=== PATIENT | male | born 1940 | race Caucasian/White ===

== ENCOUNTER 2017-07-06 05:36 | Inpatient (IN) | payer OTHER, BC ==
[2017-07-06] MEDS ORDERED: SODIUM CHLORIDE 500 ML IV STA (06:26)
[2017-07-06] MEDS ORDERED: KETOROLAC TROMETHAMINE 30 MG/1 ML VIAL IM ONE (06:26)
[2017-07-06] MEDS ORDERED: methylPREDNISolone NA SUCC 125 MG/2 ML VIAL IVPB ONE (06:26)
--- NOTE | 2017-07-06 06:27 | PDOC ---
History of Present Illness - General Chief Complaint: Pain Stated Complaint: PAIN,RT HIP Time Seen by Provider: 07/06/17 06:06 History Source: Patient Exam Limitations: No Limitations - History of Present Illness Initial Comments: 07/06/17 06:36 76yo Male patient with extensive cardiac history that includes: HTN, HLD, PVD, Cardiac Bypass, IDDM, Chronic Osteomyelitis, Anxiety presents to ED c/o atraumatic right hip pain that radiates down right thigh and wraps around right knee. Patient states he recently had MRI by Dr. Galarza that showed DDD, Arthritis, and Spinal Stenosis. He states pain has been ongoing x 2 weeks and constant. Patient take Tramadol for pain with minimal relief. He denies CP, Abd pain, Diff breathing, cough, congestion, fever, injury, fall or any other complaints at this time. Timing/Duration: constant Severity: moderate Modifying Factors: improves with: medication Associated Symptoms: denies: denies symptoms, chest pain, cough, diaphoresis, fever/chills, headaches, loss of appetite, malaise, nausea/vomiting, rash, seizure, shortness of breath, syncope, weakness, other Aspirin Received prior to arrival: No: no aspirin today, unknown, 81 mg x 1, 81 mg x 2, 81 mg x 3, 81 mg x 4, 325 mg x 1, provided at home, provided by EMS, provided by ED [facility] Contraindications(Core Measure): No: Allergy, Other, Active Blding w/i 24 hrs., Plavix, Receiving Warfarin Beta Onelia Contraindications(Core Measure): No: Not Prescribed, Allergy, Bradycardia (HR <60bpm), Advanced Heart Block, Pacemaker, Other Past History - Travel Traveled outside of the country in the last 30 days: No Close contact w/someone who was outside of country & ill: No - Past Medical History Allergies/Adverse Reactions: Allergies Allergy/AdvReac Type Severity Reaction Status Date / Time No Known Drug Allergies Allergy Verified 07/06/17 06:25 Home Medications: Ambulatory Orders Amiodarone HCl [Cordarone -] 200 mg PO DAILY 08/25/13 Ascorbic Acid [Vitamin C] 1,000 mg PO DAILY 08/25/13 Aspirin Coated [Ecotrin -] 81 mg PO DAILY 08/25/13 Atorvastatin Ca [Lipitor] 80 mg PO HS 08/25/13 Carvedilol [Coreg -] 6.25 mg PO BID 08/25/13 Dicloxacillin Sodium 500 mg PO TID 08/25/13 Digoxin [Lanoxin -] 0.5 mg PO DAILY 08/25/13 Flaxseed Oil 1,000 mg PO DAILY 08/25/13 Folic Acid 0.8 mg PO DAILY 08/25/13 Furosemide [Lasix -] 20 mg PO DAILY 08/25/13 Ibuprofen [Motrin -] 600 mg PO TID 08/25/13 Insulin Glargine,Hum.rec.anlog [Lantus (10mL VIAL) -] 20 units SQ HS 08/25/13 Magnesium 30 mg PO DAILY 08/25/13 Phenytoin Sodium Extended [Phenytek] 300 mg PO BID 08/25/13 Potassium Chloride [K-Tab] 5 meq PO DAILY 08/25/13 Pyridoxine HCl (B-6) [Vitamin B6 -] 50 mg PO DAILY 08/25/13 Valsartan [Diovan] 80 mg PO DAILY 08/25/13 Zinc 50 mg PO DAILY 08/25/13 Insulin Lispro [Humalog] 5 unit SQ TID 08/26/13 Alprazolam [Xanax] 1 mg PO BID 07/06/17 Cyanocobalamin [Vitamin B12 -] 1,000 mcg PO DAILY 07/06/17 Docusate Sodium [Colace -] 100 mg PO DAILY 07/06/17 Isosorbide Mononitrate [Imdur -] 30 mg PO DAILY 07/06/17 Hawley-3 Fatty Acids [Hawley-3] 1,000 mg PO DAILY 07/06/17 Tramadol HCl 50 mg PO QID 07/06/17 Ubidecarenone/Vit E Acetate [Co Q-10 100 mg Softgel] 1 each PO DAILY 07/06/17 Cancer: Yes (brain tumor) Cardiac Disorders: Yes (bypass sx) Diabetes: Yes Thyroid Disease: Yes (HYPO) - Surgical History Appendectomy: Yes Cardiac Surgery: Yes (CABG) Neurologic Surgery: Yes (MENINGIOMA REMOVED) - Psycho/Social/Smoking Cessation Hx Suicidal Ideation: No Smoking History: Former smoker Have you smoked in the past 12 months: No If you are a former smoker, when did you quit?: 40YRS AGO Information on smoking cessation initiated: No Hx Alcohol Use: Yes (OCCAS) Drug/Substance Use Hx: No Substance Use Type: Alcohol Hx Substance Use Treatment: No Review of Systems - Review of Systems Musculoskeletal: Yes: Back Pain, Other (Leg Pain) All Other Systems: Reviewed and Negative *Physical Exam - Vital Signs Last Vital Signs Temp Pulse Resp BP Pulse Ox 97.6 F 67 20 149/109 94 L 07/06/17 05:45 07/06/17 05:45 07/06/17 05:45 07/06/17 05:45 07/06/17 05:45 - Physical Exam General Appearance: Yes: Nourished, Appropriately Dressed, Mild Distress. No: Apparent Distress, Moderate Distress, Severe Distress Respiratory/Chest: positive: Decreased Breath Sounds. negative: Chest Tender, Normal Breath Sounds, Respiratory Distress, Accessory Muscle Use, Labored Respiration, Rapid RR, Crackles, Rales, Stridor, Wheezing Cardiovascular: positive: Regular Rhythm, Regular Rate Gastrointestinal/Abdominal: positive: Normal Bowel Sounds, Soft. negative: Distended, Guarding, Rebound, Tenderness Musculoskeletal: positive: Normal Inspection, Decreased Range of Motion. negative: CVA Tenderness, Vertebral Tenderness Extremity: positive: Normal Capillary Refill, Normal Range of Motion, Pedal Edema, Swelling. negative: Normal Inspection, Tender, Calf Tenderness, Erythema , Inflammation Integumentary: positive: Normal Color, Dry, Warm. negative: Rash, Swelling, Ecchymosis, Bruising Neurologic: positive: ticket counter II-XII NML intact, Fully Oriented, Alert, Normal Mood/ Affect, Normal Response, Motor Strength 5/5
[2017-07-06] MEDS ORDERED: HYDROCORTISONE SOD SUCCINATE 250 MG/2 ML ML ONE ×2 (06:40→06:41)
[2017-07-06] MEDS ORDERED: KETOROLAC TROMETHAMINE 60 MG/2 ML VIAL ONE (06:40)
[2017-07-06 06:59] LABS: BASOPHIL 0.9 % (0-2.0); EOSINOPHIL 1.8 % (0-4.5); MCH 32.6 pg (25.7-33.7); MCHC 33.5 g/dl (32.0-35.9); MEAN CELL VOLUME 97.2 fl (80-96); MEAN PLT VOLUME 8.6 fl (7.5-11.1); NEUTROPHILS 78.6 % (42.8-82.8); PLATELET COUNT 195 K/MM3 (134-434); RDW 14.2 % (11.9-15.9); WHITE BLOOD COUNT 12.5 K/mm3 (4.0-10.0)
[2017-07-06 07:23] LABS: ALBUMIN 3.5 g/dl (3.4-5.0); ALK PHOS 219 U/L (45-117); ANION GAP 6 (8-16); BILIRUBIN,TOTAL 0.5 mg/dL (0.2-1.0); CALCIUM 8.7 mg/dL (8.5-10.1); CO2 31 mmol/L (21-32); GLUCOSE,RANDOM 155 mg/dL (74-106); MAGNESIUM 2.1 mg/dL (1.8-2.4); SGOT/AST 37 U/L (15-37); SGPT/ALT 41 U/L (12-78); TOT PROT 7.1 g/dl (6.4-8.2)
--- NOTE | 2017-07-06 07:40 | PDOC ---
*Physical Exam - Vital Signs Last Vital Signs Temp Pulse Resp BP Pulse Ox 97.6 F 67 20 149/109 94 L 07/06/17 05:45 07/06/17 05:45 07/06/17 05:45 07/06/17 05:45 07/06/17 05:45 - Physical Exam General Appearance: Yes: Appropriately Dressed. No: Apparent Distress HEENT: positive: Normal Voice Neck: positive: Supple Respiratory/Chest: negative: Respiratory Distress Extremity: positive: Normal Inspection Integumentary: positive: Dry, Warm Neurologic: positive: Fully Oriented, Alert, Normal Mood/Affect ED Treatment Course - LABORATORY CBC & Chemistry Diagram: 07/06/17 06:47 07/06/17 06:47 - ADDITIONAL ORDERS Additional order review: Laboratory Results 07/06/17 06:47 Sodium 141 Potassium 4.8 Chloride 104 Carbon Dioxide 31 Anion Gap 6 L BUN 27 H Creatinine 1.0 D Creat Clearance w eGFR > 60 Random Glucose 155 H D Calcium 8.7 Magnesium 2.1 Total Bilirubin 0.5 D AST 37 D ALT 41 Alkaline Phosphatase 219 H D Total Protein 7.1 Albumin 3.5 07/06/17 06:47 RBC 4.18 MCV 97.2 H MCHC 33.5 RDW 14.2 MPV 8.6 Neutrophils % 78.6 Lymphocytes % 9.5 Monocytes % 9.2 Eosinophils % 1.8 Basophils % 0.9 - Medications Given in the ED: ED Medications Discontinued Medications Generic Name Dose Route Start Last Admin Trade Name Freq PRN Reason Stop Dose Admin Sodium Chloride 500 mls @ 500 mls/hr 07/06/17 06:26 07/06/17 06:52 Normal Saline - IV 07/06/17 07:25 500 mls/hr ASDIR STA Administration Ketorolac Tromethamine 30 mg 07/06/17 06:26 07/06/17 06:53 Toradol Injection - IM 07/06/17 06:27 30 mg ONCE ONE Administration Methylprednisolone Sodium Succinate 125 mg 07/06/17 06:26 07/06/17 06:53 Solu-Medrol - IVPB 07/06/17 06:27 125 mg ONCE ONE Administration Medical Decision Making - Medical Decision Making 07/06/17 07:38 Patient signed out to me at 7 AM Patient is a 76-year-old male with extensive cardiac history, diabetes, chronic osteomyelitis, chronic back pain status post MRI 2 weeks ago arranged by Dr. Whitman, which showed DJD and spinal stenosis, here with worsening of low back pain and unable to ambulate 1 week. No lower extremity weakness, saddle anesthesia or bowel or bladder incontinence. Plan is to control pain and reassess. CT lumbar spine, rule out acute pathology pending as per prior team. 07/06/17 10:31 MRI with multiple possible recent compression fractures. Known osteoarthritis also seen. No evidence of spinal cord compromise. Patient informed of findings. States morphine did improve pain, but unable to ambulate even w/ walker. Reports that he was unable to receive appropriate PT therapy in the past 2/2 insurance issues. Will contact PMD and admit at this time 07/06/17 10:34 07/06/17 11:[address] Glenda Todd, who is covering for patient's PMD, Dr Flaherty, states patient can be admitted to observation for pain control and that M.D., will contact pain management 07/06/17 11:50 07/06/17 12:08 *DC/Admit/Observation/Transfer Diagnosis at time of Disposition: Low back pain Qualifiers: Chronicity: acute Back pain laterality: bilateral Sciatica presence: without sciatica Qualified Code(s): M54.5 - Low back pain - Discharge Dispostion Condition at time of disposition: Fair Admit: Yes - Referrals
[2017-07-06] MEDS ORDERED: morphine CARPU-JECT 4 MG/1 ML DISP.SYRIN IVPUSH ONE (07:43)
[2017-07-06] MEDS ORDERED: METOCLOPRAMIDE HCL INJECTION 10 MG/2 ML VIAL IVPB ONE (07:46)
[2017-07-06] MEDS ORDERED: morphine CARPU-JECT 4 MG/1 ML DISP.SYRIN ONE (07:46)
[2017-07-06] MEDS ORDERED: ONDANSETRON 4 MG/2 ML VIAL IVPUSH ONE (07:51)
[2017-07-06] MEDS ORDERED: ONDANSETRON 4 MG/2 ML VIAL IVPB PRN (12:29)
[2017-07-06] MEDS ORDERED: IBUPROFEN 600 MG TABLET (FP) PO PRN (12:29)
--- NOTE | 2017-07-06 12:35 | HP ---
Admitting History and Physical - Primary Care Physician PCP: Mika Flaherty - Admission Chief Complaint: pain in right knee/ back History of Present Illness: 76yo Male patient--pt of Dr. Flaherty-- with extensive history that of HTN, HLD, PVD, cad--Cardiac Bypass, IDDM, Chronic Osteomyelitis left leg-- on suppressive abx , Anxiety presents to ED c/o atraumatic right hip pain that radiates down right thigh and wraps around right knee. Patient states he recently had MRI by Dr. Galarza that showed DDD, Arthritis, and Spinal Stenosis. He states pain has been ongoing x 2 weeks and constant. Patient take Tramadol for pain with minimal relief. He denies CP, Abd pain, Diff breathing, cough, congestion, fever , injury, fall or any other complaints . pt reports pain worse in last 2 weeks also says told that of back better- knee pain will get better. unable to walk due to pain. being kept for obs family at bedside anxious. History Source: Patient Limitations to Obtaining History: No Limitations - Past Medical History [employer]: Yes: Peripheral Neuropathy Cardiovascular: Yes: CAD Psych: Yes: Anxiety Musculoskeletal: Yes: Chronic low back pain - Smoking History Smoking history: Former smoker Have you smoked in the past 12 months: No If you are a former smoker, when did you quit?: 40YRS AGO - Alcohol/Substance Use Hx Alcohol Use: Yes (OCCAS) History of Substance Use: reports: None Home Medications - Allergies Allergies/Adverse Reactions: Allergies Allergy/AdvReac Type Severity Reaction Status Date / Time No Known Drug Allergies Allergy Verified 07/06/17 06:25 - Home Medications Home Medications: Ambulatory Orders Amiodarone HCl [Cordarone -] 200 mg PO DAILY 08/25/13 Ascorbic Acid [Vitamin C] 1,000 mg PO DAILY 08/25/13 Aspirin Coated [Ecotrin -] 81 mg PO DAILY 08/25/13 Atorvastatin Ca [Lipitor] 80 mg PO HS 08/25/13 Carvedilol [Coreg -] 6.25 mg PO BID 08/25/13 Dicloxacillin Sodium 500 mg PO TID 08/25/13 Digoxin [Lanoxin -] 0.5 mg PO DAILY 08/25/13 Flaxseed Oil 1,000 mg PO DAILY 08/25/13 Folic Acid 0.8 mg PO DAILY 08/25/13 Furosemide [Lasix -] 20 mg PO DAILY 08/25/13 Ibuprofen [Motrin -] 600 mg PO TID 08/25/13 Insulin Glargine,Hum.rec.anlog [Lantus (10mL VIAL) -] 20 units SQ HS 08/25/13 Magnesium 30 mg PO DAILY 08/25/13 Phenytoin Sodium Extended [Phenytek] 300 mg PO BID 08/25/13 Potassium Chloride [K-Tab] 5 meq PO DAILY 08/25/13 Pyridoxine HCl (B-6) [Vitamin B6 -] 50 mg PO DAILY 08/25/13 Valsartan [Diovan] 80 mg PO DAILY 08/25/13 Zinc 50 mg PO DAILY 08/25/13 Insulin Lispro [Humalog] 5 unit SQ TID 08/26/13 Alprazolam [Xanax] 1 mg PO BID 07/06/17 Cyanocobalamin [Vitamin B12 -] 1,000 mcg PO DAILY 07/06/17 Docusate Sodium [Colace -] 100 mg PO DAILY 07/06/17 Isosorbide Mononitrate [Imdur -] 30 mg PO DAILY 07/06/17 Huntley-3 Fatty Acids [Huntley-3] 1,000 mg PO DAILY 07/06/17 Tramadol HCl 50 mg PO QID 07/06/17 Ubidecarenone/Vit E Acetate [Co Q-10 100 mg Softgel] 1 each PO DAILY 07/06/17 Family Disease History - Family Disease History Family History: Unremarkable Review of Systems - Review of Systems Eyes: reports: No Symptoms HENT: reports: No Symptoms Neck: reports: No Symptoms Cardiovascular: reports: No Symptoms Respiratory: reports: No Symptoms Gastrointestinal: reports: No Symptoms Genitourinary: reports: No Symptoms Neurological: reports: Parasthesia Psychiatric: reports: Anxiety Physical Examination Vital Signs: Vital Signs Temperature 97.6 F 07/06/17 05:45 Pulse Rate 65 07/06/17 09:45 Respiratory Rate 20 07/06/17 05:45 Blood Pressure 103/58 07/06/17 09:45 O2 Sat by Pulse Oximetry (%) 96 07/06/17 09:45 Constitutional: Yes: No Distress, Anxious Eyes: Yes: Conjunctiva Clear Neck: Yes: Supple Cardiovascular: Yes: Regular Rate and Rhythm Respiratory: Yes: Diminished (at bases) Gastrointestinal: Yes: Soft Extremities: Yes: Other (chronic skin changes) Edema: No Peripheral Pulses WNL: Yes Neurological: Yes: Alert Imaging - Results Chest X-ray: Report Reviewed Cat Scan: Report Reviewed Problem List - Problems (1) Low back pain Code(s): M54.5 - LOW BACK PAIN Qualifiers: Chronicity: acute Back pain laterality: bilateral Sciatica presence : without sciatica Qualified Code(s): M54.5 - Low back pain (2) Knee pain, right Code(s): M25.561 - PAIN IN RIGHT KNEE (3) Anxiety Code(s): F41.9 - ANXIETY DISORDER, UNSPECIFIED (4) CAD (coronary artery disease) Code(s): I25.10 - ATHSCL HEART DISEASE OF [place] CORONARY ARTERY W/O ANG PCTRS (5) IDDM (insulin dependent diabetes mellitus) Code(s): E11.9 - TYPE 2 DIABETES MELLITUS WITHOUT COMPLICATIONS Z79.4 - LONGTERM (CURRENT) USE OF INSULIN Assessment/Plan Discussed with pt/ family pain control PT Neurosurgery/ ortho consults pt also wants to see Dr. Shea- Neuro Monitor bgm f/u lytes check digoxin level will follow
--- NOTE | 2017-07-06 16:19 | PN ---
Progress Note (short form) - Note Progress Note: NEUROSURGERY Chart reviewed LS spine CT reviewed Pt examined Pt with extensive medical history including HTN, Afib, CAD s/p stents, DM, PVD, L parietal craniotomy, osteomyelitis A couple weeks history of R hip pain radiating to R thigh and knee by report Tmax 98.7, VSS PE: HEENT- NC/AT, L pariertal scalp incision healed; neck- supple; Cor- RR; Lungs- CTA B; Abd- benign; Ext- L lower leg old osteo; R LE graft donor site clean; chronic venous changes CN- intact; Motor- B shoulder 4/5; R DF/PF 0-1; L DF/PF 4+; Sensation- intact LT ; DTR- hyporeflexic CT LS spine: Mutilevel spondylosis and DDD, worst at L2-3 and L4-5 with spondylosis; mild-moderate facet hypertrophy and mild-moderate L3-4 and L4-5 lateral recess narrowing; no severe stenosis noted; mild L3 and L5 sup endplate depression more likely degenerative given DDD findings above. WBC 12.5 to 8.6; ESR 35; Hgb 13.6; Cr 1.0 Multilevel lumbar DDD, spondylosis and mild stenosis Possible R LE radiculopathy but his progressive PAD could also cause R LE pain/ weakness - will leave to the professional expertise of medical team to evaluate that condition Outpatient neurology f/u and EMG Obtain baseline ESR and CRP given prior h/o osteomyelitis and mildly elevated WBC LS spine none-contrast MRI to r/o acute L3/L5 sup endplate fx vs chronic DDD with endplate changes and to ascertain degree of stenosis, if no medical contraindication (unable to tolerate closed MRI unfortunately) Doubt pt is a surgical candidate for lumbar spine surgery given multiple significant medical co-morbidities Pain management input
[2017-07-06] MEDS ORDERED: INSULIN (NOVOLOG) ASPART 100 UNITS/ML 10ML VIAL ONE (17:27)
[2017-07-06] MEDS: INSULIN SLIDING SCALE (NOVOLOG) 1 VIAL SQ SCH (17:28)
[2017-07-06 17:53] VITALS: BMI 30.5
[2017-07-06] MEDS: oxyCODONE HCL 5 MG TABLET PO PRN (17:57)
[2017-07-06] MEDS ORDERED: PT OWN MED DRAWER 7, Y5N ONE (21:15)
[2017-07-06 21:52] LABS: URINE APPEARANCE SLCLOUDY; URINE BILIRUBIN NEGATIVE (NEGATIVE); URINE BLOOD NEGATIVE (NEGATIVE); URINE COLOR DKYELLOW; URINE GLUCOSE (UA) 1+ (NEGATIVE); URINE KETONE NEGATIVE (NEGATIVE); URINE LEUK ESTERASE NEGATIVE (NEGATIVE); URINE NITRITE NEGATIVE (NEGATIVE)
[2017-07-06 21:56] LABS: URINE PROTEIN 1+ (NEGATIVE)
[2017-07-06 22:06] LABS: URINE HYALINE CAST 12 /lpf; URINE MUCUS RARE; URINE RBC 3 /hpf (0-3); URINE WBC 1 /hpf (3-5)
[2017-07-06] MEDS: CARVEDILOL 6.25 MG TABLET (FP) PO SCH (22:38)
[2017-07-06] MEDS: ATORVASTATIN CA 80 MG TABLET (FP) PO SCH (22:38)
[2017-07-06] MEDS: DICLOXACILLIN SODIUM 250 MG CAPSULE PO SCH (22:39)
[2017-07-06] MEDS: ALPRAZolam 2 MG TABLET PO SCH (22:40)
[2017-07-06] MEDS: INSULIN DETEMIR 100 UNITS/ML MDV SQ SCH (22:43)
[2017-07-06] MEDS: PHENYTOIN NA EXTENDED 100 MG CAPSULE (FP) PO SCH (22:43)
[2017-07-07] MEDS: INSULIN SLIDING SCALE (NOVOLOG) 1 VIAL SQ SCH ×2 (06:21→18:10)
[2017-07-07] MEDS: DICLOXACILLIN SODIUM 250 MG CAPSULE PO SCH ×3 (06:21→21:18)
[2017-07-07 08:02] LABS: BASOPHIL 0.8 % (0-2.0); EOSINOPHIL 2.9 % (0-4.5); MCH 32.4 pg (25.7-33.7); MCHC 33.4 g/dl (32.0-35.9); MEAN CELL VOLUME 96.8 fl (80-96); MEAN PLT VOLUME 8.7 fl (7.5-11.1); NEUTROPHILS 66.7 % (42.8-82.8); PLATELET COUNT 184 K/MM3 (134-434); RDW 14.5 % (11.9-15.9); WHITE BLOOD COUNT 8.6 K/mm3 (4.0-10.0)
[2017-07-07 08:26] LABS: ALBUMIN 3.2 g/dl (3.4-5.0); ANION GAP 7 (8-16); BILIRUBIN,TOTAL 0.5 mg/dL (0.2-1.0); CALCIUM 8.6 mg/dL (8.5-10.1); CO2 31 mmol/L (21-32); CREATININE 0.9 mg/dL (0.7-1.3); GLUCOSE,RANDOM 114 mg/dL (74-106); MAGNESIUM 2.2 mg/dL (1.8-2.4); SGOT/AST 35 U/L (15-37); SGPT/ALT 37 U/L (12-78); TOT PROT 6.6 g/dl (6.4-8.2)
[2017-07-07 08:37] LABS: ALK PHOS 194 U/L (45-117); DIGOXIN LEVEL 1.1172 ng/ml (0.8-2.0)
[2017-07-07] MEDS: ASPIRIN COATED 81 MG TABLET.EC PO SCH (09:41)
[2017-07-07] MEDS: FUROSEMIDE 20 MG TABLET (FP) PO SCH (09:41)
[2017-07-07] MEDS: ASCORBIC ACID 500 MG TABLET (FP) PO SCH (09:41)
[2017-07-07] MEDS: DOCUSATE SODIUM 100 MG CAPSULE (FP) PO SCH (09:42)
[2017-07-07] MEDS: VALSARTAN 80 MG TABLET (UD) PO SCH (09:42)
[2017-07-07] MEDS: CYANOCOBALAMIN 1,000 MCG TABLET (FP) PO SCH (09:42)
[2017-07-07] MEDS: CARVEDILOL 6.25 MG TABLET (FP) PO SCH ×2 (09:42→21:17)
[2017-07-07] MEDS: ISOSORBIDE MONONITRATE 30 MG TAB.SR.24H (FP) PO SCH (09:42)
[2017-07-07] MEDS: AMIODARONE HCL 200 MG TABLET (FP) PO SCH (09:42)
[2017-07-07] MEDS: PHENYTOIN NA EXTENDED 100 MG CAPSULE (FP) PO SCH ×2 (09:43→21:18)
[2017-07-07] MEDS: OMEGA-3 ACID ETHYL ESTERS (FATTY-ACIDS) 1 GM CAPSULE (FP) PO SCH (09:43)
[2017-07-07] MEDS: ALPRAZolam 2 MG TABLET PO SCH ×2 (09:43→21:17)
[2017-07-07] MEDS: PYRIDOXINE HCL (B-6) 50 MG TABLET (FP) PO SCH (10:00)
--- NOTE | 2017-07-07 12:46 | PN ---
Progress Note (short form) - Note Progress Note: pt seen/ examined feels better- pain + but decreased NS consult noted/ appreciated Vital Signs Temp 98.3 F 07/07/17 09:40 Pulse 70 07/07/17 09:40 Resp 20 07/07/17 09:40 BP 111/50 07/07/17 09:40 Pulse Ox 95 07/07/17 04:00 Intake & Output 07/06/17 07/07/17 07/07/17 23:59 11:59 23:59 Intake Total 760 460 Output Total 600 Balance 760 -140 Weight 219 lb Intake: Oral 760 460 Output: Urine 600 Void 600 Other: Voiding Method Urinal Urinal Bowel Movement No No Height 5 ft 11 in Body Mass Index (BMI) 30.5 Weight Measurement Method Patient Lift Scale CBC, BMP 07/07/17 07:20 07/07/17 07:20 Active Medications Alprazolam (Xanax -) 1 mg PO BID [facility] Last Admin: 07/07/17 09:43 Dose: 1 mg Amiodarone HCl (Cordarone -) 200 mg PO DAILY [facility] Last Admin: 07/07/17 09:42 Dose: 200 mg Ascorbic Acid (Vitamin C -) 1,000 mg PO DAILY [facility] Last Admin: 07/07/17 09:41 Dose: 1,000 mg Aspirin (Ecotrin -) 81 mg PO DAILY [facility] Last Admin: 07/07/17 09:41 Dose: 81 mg Atorvastatin Calcium (Lipitor -) 80 mg PO HS [facility] Last Admin: 07/06/17 22:38 Dose: 80 mg Carvedilol (Coreg -) 6.25 mg PO BID [facility] Last Admin: 07/07/17 09:42 Dose: 6.25 mg Cyanocobalamin (Vitamin B12 -) 1,000 mcg PO DAILY [facility] Last Admin: 07/07/17 09:42 Dose: 1,000 mcg Dicloxacillin Sodium (Dynapen -) 500 mg PO TID [facility] Last Admin: 07/07/17 06:21 Dose: 500 mg Digoxin (Lanoxin -) 0.5 mg PO DAILY [facility] Docusate Sodium (Colace -) 100 mg PO DAILY [facility] Last Admin: 07/07/17 09:42 Dose: 100 mg Furosemide (Lasix -) 20 mg PO DAILY [facility] Last Admin: 07/07/17 09:41 Dose: 20 mg Ibuprofen (Motrin -) 600 mg PO Q6H PRN PRN Reason: FEVER Insulin Aspart (Novolog Vial Sliding Scale -) 1 vial SQ BIDAC [facility] PRN Reason: Protocol Last Admin: 07/07/17 06:21 Dose: Not Given Insulin Detemir (Levemir Vial) 20 units SQ HS [facility] Last Admin: 07/06/17 22:43 Dose: 20 units Isosorbide Mononitrate (Imdur -) 30 mg PO DAILY [facility] Last Admin: 07/07/17 09:42 Dose: 30 mg Morphine Sulfate (Morphine Injection -) 2 mg IVPUSH Q4H PRN PRN Reason: BACK PAIN Non-Formulary Medication (Flaxseed Oil [Flaxseed Oil]) 1,000 mg PO DAILY [facility] Non-Formulary Medication (Folic Acid [Folic Acid]) 0.8 mg PO DAILY [facility] Non-Formulary Medication (Magnesium [Magnesium]) 30 mg PO DAILY [facility] Non-Formulary Medication (Potassium Chloride [K-Tab]) 5 meq PO DAILY [facility] Non-Formulary Medication (Ubidecarenone/Vit E Acetate [Co Q-10 100 Mg Softgel]) 1 each PO DAILY [facility] Non-Formulary Medication (Zinc [Zinc]) 50 mg PO DAILY [facility] [id number] Ethyl Esters (Lovaza -) 1 gm PO DAILY [facility] Last Admin: 07/07/17 09:43 Dose: 1 gm Ondansetron HCl (Zofran Injection) 4 mg IVPB Q6H PRN PRN Reason: NAUSEA Oxycodone HCl (Roxicodone -) 10 mg PO Q6H PRN PRN Reason: PAIN Last Admin: 07/06/17 17:57 Dose: 10 mg Phenytoin Sodium (Dilantin -) 300 mg PO BID [facility] Last Admin: 07/07/17 09:43 Dose: 300 mg Pyridoxine HCl (Vitamin B6 -) 50 mg PO DAILY [facility] Valsartan (Diovan -) 80 mg PO DAILY [facility] Last Admin: 07/07/17 09:42 Dose: 80 mg Physical Examination Constitutional: Yes: No Distress, Comfortable. Eyes: Yes: Conjunctiva Clear Neck: Yes: Supple/ no jvd Cardiovascular: Yes: Regular Rate and Rhythm Respiratory: Yes: Diminished (at bases) Gastrointestinal: Yes: Soft Extremities: Yes: Other (chronic skin changes) Edema: No Peripheral Pulses WNL: Yes Neurological: Yes: Alert Imaging - Results Chest X-ray: Report Reviewed Cat Scan: Report Reviewed Problem List - Problems (1) Low back pain Code(s): M54.5 - LOW BACK PAIN Qualifiers: Chronicity: acute Back pain laterality: bilateral Sciatica presence : without sciatica Qualified Code(s): M54.5 - Low back pain (2) Knee pain, right Code(s): M25.561 - PAIN IN RIGHT KNEE (3) Anxiety Code(s): F41.9 - ANXIETY DISORDER, UNSPECIFIED (4) CAD (coronary artery disease) Code(s): I25.10 - ATHSCL HEART DISEASE OF [place] CORONARY ARTERY W/O ANG PCTRS (5) IDDM (insulin dependent diabetes mellitus) Code(s): E11.9 - TYPE 2 DIABETES MELLITUS WITHOUT COMPLICATIONS Z79.4 - HIMS CLERK (CURRENT) USE OF INSULIN Assessment/Plan better pain control PT Neurosurgery/ ortho consults pt reports he has h/o afib- s/p cardioversion - not on a/c says follows at [facility] overall better anticipate d/c tomorrow Problem List - Problems (1) Low back pain Code(s): M54.5 - LOW BACK PAIN Qualifiers: Chronicity: acute Back pain laterality: bilateral Sciatica presence : without sciatica Qualified Code(s): M54.5 - Low back pain (2) Knee pain, right Code(s): M25.561 - PAIN IN RIGHT KNEE (3) Anxiety Code(s): F41.9 - ANXIETY DISORDER, UNSPECIFIED (4) CAD (coronary artery disease) Code(s): I25.10 - ATHSCL HEART DISEASE OF [place] CORONARY ARTERY W/O ANG PCTRS (5) IDDM (insulin dependent diabetes mellitus) Code(s): E11.9 - TYPE 2 DIABETES MELLITUS WITHOUT COMPLICATIONS Z79.4 - SHELTER (CURRENT) USE OF INSULIN
--- NOTE | 2017-07-07 16:25 | CON.NEURO ---
Consult - History of Present Illness History of Present Illness: 76yo Male patient--pt of Dr. Flaherty-- with extensive history that of HTN, HLD, PVD, cad--Cardiac Bypass, IDDM, Chronic Osteomyelitis left leg-- on suppressive abx , Anxiety presents bc of right hip pain that radiates down right thigh and wraps around right knee. Sx started apx 4 weeks, ago but worse over two weeks, and now to point that he can not ambulate, dragging R leg HX of CT [facility] joes -- ? meningioma, outpt MRI BRAIN N/A (upright imaging) Patient states he recently had MRI by Dr. Galarza that showed DDD, Arthritis, and Spinal Stenosis. CT LS spine: Mutilevel spondylosis and DDD, worst at L2-3 and L4-5 with spondylosis; mild-moderate facet hypertrophy and mild-moderate L3-4 and L4-5 lateral recess narrowing; no severe stenosis noted; mild L3 and L5 sup endplate depression more likely degenerative given DDD findings above. WBC 12.5; Hgb 13.6; Cr 1.0, ESR 35 Multilevel lumbar DDD, spondylosis and mild stenosis on oxycodone and morphine, ? 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: Peripheral Neuropathy Cardio/Vascular: Yes: CAD Psych: Yes: Anxiety Musculoskeletal: Yes: Chronic low back pain - Alcohol/Substance Use Hx Alcohol Use: Yes (OCCAS) History of Substance Use: reports: None - Smoking History Smoking history: Former smoker Have you smoked in the past 12 months: No If you are a former smoker, when did you quit?: 40YRS AGO Home Medications - Allergies Allergies/Adverse Reactions: Allergies Allergy/AdvReac Type Severity Reaction Status Date / Time No Known Drug Allergies Allergy Verified 07/06/17 06:25 - Home Medications Home Medications: Ambulatory Orders Amiodarone HCl [Cordarone -] 200 mg PO DAILY 08/25/13 Ascorbic Acid [Vitamin C] 1,000 mg PO DAILY 08/25/13 Aspirin Coated [Ecotrin -] 81 mg PO DAILY 08/25/13 Atorvastatin Ca [Lipitor] 80 mg PO HS 08/25/13 Carvedilol [Coreg -] 6.25 mg PO BID 08/25/13 Dicloxacillin Sodium 500 mg PO TID 08/25/13 Digoxin [Lanoxin -] 0.5 mg PO DAILY 08/25/13 Flaxseed Oil 1,000 mg PO DAILY 08/25/13 Folic Acid 0.8 mg PO DAILY 08/25/13 Furosemide [Lasix -] 20 mg PO DAILY 08/25/13 Ibuprofen [Motrin -] 600 mg PO TID 08/25/13 Insulin Glargine,Hum.rec.anlog [Lantus (10mL VIAL) -] 20 units SQ HS 08/25/13 Magnesium 30 mg PO DAILY 08/25/13 Phenytoin Sodium Extended [Phenytek] 300 mg PO BID 08/25/13 Potassium Chloride [K-Tab] 5 meq PO DAILY 08/25/13 Pyridoxine HCl (B-6) [Vitamin B6 -] 50 mg PO DAILY 08/25/13 Valsartan [Diovan] 80 mg PO DAILY 08/25/13 Zinc 50 mg PO DAILY 08/25/13 Insulin Lispro [Humalog] 5 unit SQ TID 08/26/13 Alprazolam [Xanax] 1 mg PO BID 07/06/17 Cyanocobalamin [Vitamin B12 -] 1,000 mcg PO DAILY 07/06/17 Docusate Sodium [Colace -] 100 mg PO DAILY 07/06/17 Isosorbide Mononitrate [Imdur -] 30 mg PO DAILY 07/06/17 [place]-3 Fatty Acids [[place]-3] 1,000 mg PO DAILY 07/06/17 Tramadol HCl 50 mg PO QID 07/06/17 Ubidecarenone/Vit E Acetate [Co Q-10 100 mg Softgel] 1 each PO DAILY 07/06/17 Physical Exam-Neuro Vital Signs: Vital Signs Temperature 98.4 F 07/07/17 14:51 Pulse Rate 71 07/07/17 14:51 Respiratory Rate 20 07/07/17 14:51 Blood Pressure 134/67 07/07/17 14:51 O2 Sat by Pulse Oximetry (%) 96 07/07/17 12:00 Constitutional: Yes: Well Nourished, No Distress Labs: CBC, BMP 07/07/17 07:20 07/07/17 07:20 - Neuro Exam Level Of Consciousness: Yes: Alert, Oriented to Person (EOmi, VFF, atrophy R biceps (surgical?), rest UE 5/5, LE weakness R IP 3/5, R HAM 4/5, R TA 4/5-- long tract pattern, LLE 5/5, no sensory level, dec PP R distal calve, reflexes UE 1+, LE (-), plantars down ) Problem List - Problems (1) IDDM (insulin dependent diabetes mellitus) Code(s): E11.9 - TYPE 2 DIABETES MELLITUS WITHOUT COMPLICATIONS 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 Flaherty-- with extensive history that of HTN, HLD, PVD, cad--Cardiac Bypass, IDDM, Chronic Osteomyelitis left leg-- on suppressive abx , Anxiety with progressive right leg monoparesis (with foot drop) long tract pattern though reflexes and sensory eval not corroborating-- as such , multilevel LS spine disease or LS plexopathy in differential ( ? diabetic amyotrophy--though this is usually proximally weakness in quads); ? brain or cord lesion factor as well--ie parasagittal mass can cause U/L leg weakness check MRI LS spine (sedation with valium PRN) check EMG LE needs reahb eval check ESR, a1c, B12, SPEP , LYME , CPK ideally get resulst of recent MRI BRAIN done as outpt Dr Delgado
[2017-07-07] MEDS ORDERED: diazePAM 2 MG TABLET PO PRN (17:44)
[2017-07-07] MEDS ORDERED: INSULIN (NOVOLOG) ASPART 100 UNITS/ML 10ML VIAL ONE ×2 (18:08→18:23)
[2017-07-07 19:08] LABS: CPK 143 IU/L (39-308)
[2017-07-07] MEDS ORDERED: PT OWN MED DRAWER 7, Y5N ONE (21:07)
[2017-07-07] MEDS: ATORVASTATIN CA 80 MG TABLET (FP) PO SCH (21:17)
[2017-07-07] MEDS: INSULIN DETEMIR 100 UNITS/ML MDV SQ SCH (21:20)
[2017-07-08] MEDS: oxyCODONE HCL 5 MG TABLET PO PRN ×2 (00:25→22:58)
[2017-07-08] MEDS: DICLOXACILLIN SODIUM 250 MG CAPSULE PO SCH ×3 (06:41→21:06)
[2017-07-08] MEDS: INSULIN SLIDING SCALE (NOVOLOG) 1 VIAL SQ SCH ×2 (06:41→17:02)
[2017-07-08] MEDS: morphine CARPU-JECT 4 MG/1 ML DISP.SYRIN IVPUSH PRN ×2 (08:52→16:50)
[2017-07-08] MEDS: ALPRAZolam 2 MG TABLET PO SCH ×2 (09:03→22:51)
[2017-07-08] MEDS ORDERED: PT OWN MED DRAWER 7, Y5N ONE ×3 (11:03→20:59)
[2017-07-08] MEDS: DOCUSATE SODIUM 100 MG CAPSULE (FP) PO SCH (11:12)
[2017-07-08] MEDS: DIGOXIN 0.125 MG TABLET (FP) PO SCH (11:12)
[2017-07-08] MEDS: VALSARTAN 80 MG TABLET (UD) PO SCH (11:13)
[2017-07-08] MEDS: FUROSEMIDE 20 MG TABLET (FP) PO SCH (11:13)
[2017-07-08] MEDS: ASCORBIC ACID 500 MG TABLET (FP) PO SCH (11:13)
[2017-07-08] MEDS: ISOSORBIDE MONONITRATE 30 MG TAB.SR.24H (FP) PO SCH (11:13)
[2017-07-08] MEDS: CYANOCOBALAMIN 1,000 MCG TABLET (FP) PO SCH (11:13)
[2017-07-08] MEDS: ASPIRIN COATED 81 MG TABLET.EC PO SCH (11:13)
[2017-07-08] MEDS: AMIODARONE HCL 200 MG TABLET (FP) PO SCH (11:14)
[2017-07-08] MEDS: CARVEDILOL 6.25 MG TABLET (FP) PO SCH ×2 (11:14→21:06)
[2017-07-08] MEDS: OMEGA-3 ACID ETHYL ESTERS (FATTY-ACIDS) 1 GM CAPSULE (FP) PO SCH (11:15)
[2017-07-08] MEDS: PHENYTOIN NA EXTENDED 100 MG CAPSULE (FP) PO SCH ×2 (11:15→21:06)
[2017-07-08] MEDS: PYRIDOXINE HCL (B-6) 50 MG TABLET (FP) PO SCH (11:16)
--- NOTE | 2017-07-08 13:53 | PN ---
Progress Note (short form) - Note Progress Note: pt seen/ examined neuro consult noted. pt could not do mri-- wants to do as out pt in open mri complains of hip pain also wants to go for str Vital Signs Temp 98.3 F 07/07/17 09:40 Pulse 70 07/07/17 09:40 Resp 20 07/07/17 09:40 BP 111/50 07/07/17 09:40 Pulse Ox 95 07/07/17 04:00 Intake & Output 07/06/17 07/07/17 07/07/17 23:59 11:59 23:59 Intake Total 760 460 Output Total 600 Balance 760 -140 Weight 219 lb Intake: Oral 760 460 Output: Urine 600 Void 600 Other: Voiding Method Urinal Urinal Bowel Movement No No Height 5 ft 11 in Body Mass Index (BMI) 30.5 Weight Measurement Method Patient Lift Scale CBC, BMP 07/07/17 07:20 07/07/17 07:20 Active Medications Alprazolam (Xanax -) 1 mg PO BID [facility] Last Admin: 07/07/17 09:43 Dose: 1 mg Amiodarone HCl (Cordarone -) 200 mg PO DAILY [facility] Last Admin: 07/07/17 09:42 Dose: 200 mg Ascorbic Acid (Vitamin C -) 1,000 mg PO DAILY [facility] Last Admin: 07/07/17 09:41 Dose: 1,000 mg Aspirin (Ecotrin -) 81 mg PO DAILY [facility] Last Admin: 07/07/17 09:41 Dose: 81 mg Atorvastatin Calcium (Lipitor -) 80 mg PO HS [facility] Last Admin: 07/06/17 22:38 Dose: 80 mg Carvedilol (Coreg -) 6.25 mg PO BID [facility] Last Admin: 07/07/17 09:42 Dose: 6.25 mg Cyanocobalamin (Vitamin B12 -) 1,000 mcg PO DAILY [facility] Last Admin: 07/07/17 09:42 Dose: 1,000 mcg Dicloxacillin Sodium (Dynapen -) 500 mg PO TID [facility] Last Admin: 07/07/17 06:21 Dose: 500 mg Digoxin (Lanoxin -) 0.5 mg PO DAILY [facility] Docusate Sodium (Colace -) 100 mg PO DAILY [facility] Last Admin: 07/07/17 09:42 Dose: 100 mg Furosemide (Lasix -) 20 mg PO DAILY [facility] Last Admin: 07/07/17 09:41 Dose: 20 mg Ibuprofen (Motrin -) 600 mg PO Q6H PRN PRN Reason: FEVER Insulin Aspart (Novolog Vial Sliding Scale -) 1 vial SQ BIDAC [facility] PRN Reason: Protocol Last Admin: 07/07/17 06:21 Dose: Not Given Insulin Detemir (Levemir Vial) 20 units SQ HS [facility] Last Admin: 07/06/17 22:43 Dose: 20 units Isosorbide Mononitrate (Imdur -) 30 mg PO DAILY [facility] Last Admin: 07/07/17 09:42 Dose: 30 mg Morphine Sulfate (Morphine Injection -) 2 mg IVPUSH Q4H PRN PRN Reason: BACK PAIN Non-Formulary Medication (Flaxseed Oil [Flaxseed Oil]) 1,000 mg PO DAILY [facility] Non-Formulary Medication (Folic Acid [Folic Acid]) 0.8 mg PO DAILY [facility] Non-Formulary Medication (Magnesium [Magnesium]) 30 mg PO DAILY [facility] Non-Formulary Medication (Potassium Chloride [K-Tab]) 5 meq PO DAILY [facility] Non-Formulary Medication (Ubidecarenone/Vit E Acetate [Co Q-10 100 Mg Softgel]) 1 each PO DAILY [facility] Non-Formulary Medication (Zinc [Zinc]) 50 mg PO DAILY [facility] Cezcl-2-Qujb Ethyl Esters (Lovaza -) 1 gm PO DAILY [facility] Last Admin: 07/07/17 09:43 Dose: 1 gm Ondansetron HCl (Zofran Injection) 4 mg IVPB Q6H PRN PRN Reason: NAUSEA Oxycodone HCl (Roxicodone -) 10 mg PO Q6H PRN PRN Reason: PAIN Last Admin: 07/06/17 17:57 Dose: 10 mg Phenytoin Sodium (Dilantin -) 300 mg PO BID [facility] Last Admin: 07/07/17 09:43 Dose: 300 mg Pyridoxine HCl (Vitamin B6 -) 50 mg PO DAILY [facility] Valsartan (Diovan -) 80 mg PO DAILY [facility] Last Admin: 07/07/17 09:42 Dose: 80 mg Physical Examination Constitutional: Yes: No Distress, Comfortable. Eyes: Yes: Conjunctiva Clear Neck: Yes: Supple/ no jvd Cardiovascular: Yes: Regular Rate and Rhythm Respiratory: Yes: Diminished (at bases) Gastrointestinal: Yes: Soft/ non tender Extremities: Yes: Other (chronic skin changes) Edema: No Peripheral Pulses WNL: Yes Neurological: Yes: Alert oriented x 3 Assessment/Plan pain control PT Neurosurgery mri as out pt emgs ordered str planning will order x ray hips also Problem List - Problems (1) Low back pain Code(s): M54.5 - LOW BACK PAIN Qualifiers: Chronicity: acute Back pain laterality: bilateral Sciatica presence : without sciatica Qualified Code(s): M54.5 - Low back pain (2) Knee pain, right Code(s): M25.561 - PAIN IN RIGHT KNEE (3) Anxiety Code(s): F41.9 - ANXIETY DISORDER, UNSPECIFIED (4) CAD (coronary artery disease) Code(s): I25.10 - ATHSCL HEART DISEASE OF [place] CORONARY ARTERY W/O ANG PCTRS (5) IDDM (insulin dependent diabetes mellitus) Code(s): E11.9 - TYPE 2 DIABETES MELLITUS WITHOUT COMPLICATIONS 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
--- NOTE | 2017-07-08 15:49 | PN ---
Progress Note (short form) - Note Progress Note: 76yo Male patient--pt of Dr. Flaherty-- with extensive history that of HTN, HLD, PVD, cad--Cardiac Bypass, IDDM, Chronic Osteomyelitis left leg-- on suppressive abx , Anxiety presents bc of right hip pain that radiates down right thigh and wraps around right knee. Sx started apx 4 weeks, ago but worse over two weeks, and now to point that he can not ambulate, dragging R leg HX of CT [facility] -- ? meningioma, outpt MRI BRAIN N/A (upright imaging) Patient states he recently had MRI by Dr. Galarza that showed DDD, Arthritis, and Spinal Stenosis. CT LS spine: Mutilevel spondylosis and DDD, worst at L2-3 and L4-5 with spondylosis; mild-moderate facet hypertrophy and mild-moderate L3-4 and L4-5 lateral recess narrowing; no severe stenosis noted; mild L3 and L5 sup endplate depression more likely degenerative given DDD findings above. WBC 12.5; Hgb 13.6; Cr 1.0, ESR 35 Multilevel lumbar DDD, spondylosis and mild stenosis on oxycodone and morphine, ? 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 Cardio/Vascular: Yes: CAD Psych: Yes: Anxiety Musculoskeletal: Yes: Chronic low back pain - Alcohol/Substance Use Hx Alcohol Use: Yes (OCCAS) History of Substance Use: reports: None - Smoking History Smoking history: Former smoker Have you smoked in the past 12 months: No If you are a former smoker, when did you quit?: 40YRS AGO Home Medications - Allergies Allergies/Adverse Reactions: Allergies Allergy/AdvReac Type Severity Reaction Status Date / Time No Known Drug Allergies Allergy Verified 07/06/17 06:25 - Home Medications Home Medications: Ambulatory Orders Amiodarone HCl [Cordarone -] 200 mg PO DAILY 08/25/13 Ascorbic Acid [Vitamin C] 1,000 mg PO DAILY 08/25/13 Aspirin Coated [Ecotrin -] 81 mg PO DAILY 08/25/13 Atorvastatin Ca [Lipitor] 80 mg PO HS 08/25/13 Carvedilol [Coreg -] 6.25 mg PO BID 08/25/13 Dicloxacillin Sodium 500 mg PO TID 08/25/13 Digoxin [Lanoxin -] 0.5 mg PO DAILY 08/25/13 Flaxseed Oil 1,000 mg PO DAILY 08/25/13 Folic Acid 0.8 mg PO DAILY 08/25/13 Furosemide [Lasix -] 20 mg PO DAILY 08/25/13 Ibuprofen [Motrin -] 600 mg PO TID 08/25/13 Insulin Glargine,Hum.rec.anlog [Lantus (10mL VIAL) -] 20 units SQ HS 08/25/13 Magnesium 30 mg PO DAILY 08/25/13 Phenytoin Sodium Extended [Phenytek] 300 mg PO BID 08/25/13 Potassium Chloride [K-Tab] 5 meq PO DAILY 08/25/13 Pyridoxine HCl (B-6) [Vitamin B6 -] 50 mg PO DAILY 08/25/13 Valsartan [Diovan] 80 mg PO DAILY 08/25/13 Zinc 50 mg PO DAILY 08/25/13 Insulin Lispro [Humalog] 5 unit SQ TID 08/26/13 Alprazolam [Xanax] 1 mg PO BID 07/06/17 Cyanocobalamin [Vitamin B12 -] 1,000 mcg PO DAILY 07/06/17 Docusate Sodium [Colace -] 100 mg PO DAILY 07/06/17 Isosorbide Mononitrate [Imdur -] 30 mg PO DAILY 07/06/17 [place]-3 Fatty Acids [[place]-3] 1,000 mg PO DAILY 07/06/17 Tramadol HCl 50 mg PO QID 07/06/17 Ubidecarenone/Vit E Acetate [Co Q-10 100 mg Softgel] 1 each PO DAILY 07/06/17 Physical Exam-Neuro Vital Signs: Vital Signs Temperature 98.3 F 07/08/17 14:59 Pulse Rate 65 07/08/17 14:59 Respiratory Rate 20 07/08/17 14:59 Blood Pressure 139/61 07/08/17 14:59 O2 Sat by Pulse Oximetry (%) 97 07/08/17 11:00 Constitutional: Yes: Well Nourished, No Distress Labs: 07/07/17 07:20 07/07/17 07:20 - Neuro Exam Level Of Consciousness: Yes: Alert, Oriented to Person (EOmi, VFF, atrophy R biceps (surgical?), rest UE 5/5, LE weakness R IP 3/5, R HAM 4/5, R TA 4/5-- long tract pattern, LLE 5/5, no sensory level, dec PP R distal calve, reflexes UE 1+, LE (-), plantars down ) Problem List - Problems (1) IDDM (insulin dependent diabetes mellitus) Code(s): E11.9 - TYPE 2 DIABETES MELLITUS WITHOUT COMPLICATIONS Z79.4 - 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 Flaherty-- with extensive history that of HTN, HLD, PVD, cad--Cardiac Bypass, IDDM, Chronic Osteomyelitis left leg-- on suppressive abx , Anxiety with progressive right leg monoparesis (with foot drop) long tract pattern though reflexes and sensory eval not corroborating-- as such , multilevel LS spine disease or LS plexopathy in differential ( ? diabetic amyotrophy--though this is usually proximally weakness in quads); ? 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
--- NOTE | 2017-07-08 18:51 | PN ---
Progress Note (short form) - Note Progress Note: Pt is known to me, I saw him in my office last week. He has an ongoing balance problem. He has a history of intra cranial (brain?) tumor(s). He denies any recent h/o trauma, but did have a sudden onset of right LBP, deep gluteal pain. He can ambulate, but with pain. He also states he has a slowly progressing right foot drop which makes it hard to walk. He was seen by Dr Delgado, Neurology. Xrays right knee show only OA CT LS spine shows a recent compression fracture of L3 and L5, and LS OA. His PE is unchanged except that he has acute right deep gluteal pain, ni sciatice, does have right LBP. He has a progressing right foot drop. He has very little active dorsiflexion. Imp Acute L3 and L5 compression fractures. Knee OA Progressive balance issues and right foot drop Rec P.T. for ambulation assistance, WBAT, extension exercises for the LBP if possible. For foot drop, Dr Delgado and Dr Sylvain Sorto if necessary.
--- NOTE | 2017-07-08 20:27 | CONS ---
DATE OF CONSULTATION: 07/08/2017 REQUESTING PHYSICIAN: Glenda Todd MD [employer] MA[employer]GER: Anthony Wilson MD, Neurosurgery CHIEF COMPLAINT: Right lower extremity pain with progressive weakness. HISTORY OF PRESENT ILLNESS: The patient is a 76-year-old right-handed male with history of left parietal meningioma, status post resection; diabetes; hypertension; coronary artery disease, status post bypass; left lower leg chronic osteomyelitis, on suppressive treatment; and osteoarthritis, status post multiple orthopedic procedures, who complains of a couple weeks of progressive right lower extremity weakness. He also experienced pain going down his right buttock, posterior thigh, down to the right ribeiro. He is known to have lumbar degenerative disease, osteoarthritis, and mild lumbar stenosis. He has been taking medication without significant relief. He has difficulty ambulating because of pain. The patient is examined at bedside today. Past medical history is significant for coronary artery disease, diabetes, hypertension, diabetic peripheral neuropathy, chronic lower back pain, left parietal craniotomy for meningioma. Current medications include folic acid, magnesium, potassium chloride replacement, zinc, Diovan, amiodarone, Lovaza, Xanax, Valium, Coreg, Lanoxin, Lipitor, Dilantin, insulin, Levemir, Lasix, Imdur, baby aspirin, ibuprofen p.r.n., morphine and oxycodone p.r.n., dicloxacillin, vitamin B12, vitamin B6, vitamin C. There is no known drug allergy. FAMILY HISTORY: Noncontributory. In terms of social history, he does not smoke but does drink alcohol socially. He is retired. He lives at home. REVIEW OF SYSTEMS: Otherwise negative for other major constitutional, head and neck, cardiovascular, pulmonary, gastrointestinal, genitourinary, endocrinological, neurological, or psychological problem except for the above. He has no recent fevers or chills. PHYSICAL EXAMINATION: General: He is awake and alert. Vital Signs: Temperature is 98.5, blood pressure 110/52, with pulse rate about 61, O2 saturation is 96% on room air. HEENT: Normocephalic, atraumatic. Anicteric. Left parietal scalp incision frontal craniotomy has healed well. Neck: Supple with no carotid bruit. Coronary: Regular rhythm. Lungs: Clear bilaterally. Abdomen: Benign. Extremities: Chronic venous changes of bilateral lower extremity with some ankle edema. There is left ribeiro chronic osteomyelitis as well as right calf graft donor site. Distal pulses difficult to fully appreciate. Neurologic: He is awake and alert, oriented x4. Cranial nerves examination is intact, 2-12. Motor examination shows 4+/5 strength in the bilateral upper and left lower extremity at least. Shoulders are 4/5 bilaterally. Right foot dorsiflexion and plantar flexion including extensor hallucis longus are 0 to 1/5. Right iliopsoas is 1-2/5 and right quadriceps are 3/-4-/5. The right ankle joint itself is slightly rigid. Sensory examination shows intact sensation to light touch but he has decreased distal vibratory sensation of the lower extremity. Deep tendon reflexes are hyporeflexive throughout. Examination of the lower back shows mild paraspinal muscle spasm. He has a negative straight-leg raise to 45 degrees bilaterally. Laboratory examination shows a white cell count initially at 12.5, and most recent white blood cell count is 8.6, ESR of 35. Serum sodium is 142 and potassium 4.8 , BUN 27, creatinine 0.9. C-reactive protein is 2.0. Hemoglobin A1c is 6.6. CT scan of the lumbar spine demonstrated multilevel facet arthrosis and degenerative disk disease. There is mild lateral recess stenosis at L3-4 and L4-5. The degenerative disk disease is worst at L2-3 and L4-5. There is mild superior endplate depression at L3 and L5, which appears more degenerative than acute fracture. IMPRESSION: 1. Multilevel lumbar degenerative disk disease, worse at L2-3 and L4-5. 2. Mild to moderate facet hypertrophy and mild to moderate lateral recess stenosis at L3-4 and L4-5 bilaterally. 3. Superior endplate depression at L3 and L5, rule out degenerative chronic depression versus osteoporotic fracture. 4. Hypertension/coronary artery disease. 5. History of left lower extremity chronic osteomyelitis, on chronic suppressive treatment. 6. Diabetes with diabetic peripheral neuropathy. 7. Peripheral arterial disease. RECOMMENDATIONS: The patient presents with a couple weeks history of right- sided lower extremity pain as well as chronic right foot weakness, which has also worsened somewhat. He has no appreciable motor strength to the right foot, dorsiflexion or plantar flexion. The CT scan findings do not fully explain why he would be this weak in the right lower extremity nor his degree of pain. There might be underlying peripheral arterial disease, which could contribute to his pain. Additionally, he also has diabetic peripheral neuropathy, which could contribute to his current symptomatology, even though I would expect his symptoms from neuropathy to be more symmetric rather than predominantly in the right lower extremity. He is already on Dilantin for seizure prophylaxis. I took the liberty of starting him on lowest dose of Neurontin, 100 mg p.o. t.i.d. for lower extremity pain management. His profound right leg weakness cannot be explained by the relatively benign appearing lumbar spine CT scan alone. MRI was attempted earlier but pt could not tolerate it. I will leave the evaluation of his peripheral arterial disease to the expertise of his medical team. He may also benefit from a baseline EMG and nerve conduction study performed as an outpatient to assess his lower extremity distal neurological function. As the patient has had multiple medical co-morbidities, neurosurgical intervention will not be undertaken lightly. The patient concurs with the above plan. ANTHONY WILSON M.D. [id number] MTDD
[2017-07-08] MEDS: ATORVASTATIN CA 80 MG TABLET (FP) PO SCH (21:06)
[2017-07-08] MEDS: INSULIN DETEMIR 100 UNITS/ML MDV SQ SCH (21:08)
[2017-07-09] MEDS: DICLOXACILLIN SODIUM 250 MG CAPSULE PO SCH ×3 (06:28→22:28)
[2017-07-09] MEDS ORDERED: INSULIN DETEMIR 100 UNITS/ML MDV SQ ONE (06:39)
[2017-07-09] MEDS ORDERED: PT OWN MED DRAWER 7, Y5N ONE ×2 (06:40→21:20)
[2017-07-09] MEDS: INSULIN SLIDING SCALE (NOVOLOG) 1 VIAL SQ SCH ×2 (06:42→17:23)
[2017-07-09] MEDS: ALPRAZolam 2 MG TABLET PO SCH ×3 (08:02→22:27)
--- NOTE | 2017-07-09 08:02 | PN ---
Progress Note (short form) - Note Progress Note: NEUROSURGERY Still with R LE pain AF, VSS PE: HEENT- NC/AT, L parietal scalp incision healed; neck- supple; Cor- RR; Lungs - CTA B; Abd- benign; Ext- L lower leg old osteo site; R LE graft donor site clean; chronic venous changes CN- intact; Motor- B shoulder 4/5; R DF/PF 0-1; R IP 2, R Quad 3; L DF/PF 4+; Sensation- intact LT; DTR- hyporeflexic ESR 25, CRP 2.0 CT LS spine: Multilevel spondylosis and DDD, worst at L2-3 and L4-5 with spondylosis; mild-moderate facet hypertrophy and mild-moderate L3-4 and L4-5 lateral recess narrowing; no severe stenosis noted; mild L3 and L5 sup endplate depression more likely degenerative given DDD findings above. Multilevel lumbar DDD, spondylosis and mild stenosis Possible R LE radiculopathy but his relatively benign LS CT findings alone could not explain his profound R foot > proximal R LE weakness (mostly unilateral symptoms): progressive PAD could cause similar symptoms EMG/NCS to assess peripheral neuropathy LS spine non-contrast MRI to r/o acute L3/L5 sup endplate fx vs chronic DDD with endplate changes and to ascertain degree of stenosis, though unable to tolerate closed MRI unfortunately Doubt pt is a surgical candidate for lumbar spine surgery given multiple significant medical co-morbidities
--- NOTE | 2017-07-09 10:17 | CONS ---
DATE OF CONSULTATION AND ELECTRODIAGNOSTIC STUDIES: 07/09/2017 HISTORY OF PRESENT ILLNESS: The patient is a 76-year-old man with an extensive past medical history which includes insulin-dependent diabetes, chronic osteomyelitis, and peripheral vascular disease who presents with difficulty walking as well as pain throughout his right hip, thigh, posterior knee, and distal lower extremity. Patient states he also has noted weakness in the right more than the left lower extremity. He notes his feet have always been cold and over the last 6 months also reports loss of balance. He has a drop foot on the right side and stiffness in the left lower extremity possibly from osteomyelitis or effusion. Patient also had a distant history of a meningioma which was on the left side of his brain and for which he underwent a craniotomy performed by Dr. Anthony Sorto. Patient notes that he is having difficulty walking, has started to use a walker partially due to the loss of balance and partially due to the dropped right foot. He also has difficulty lifting his right leg. On admission, patient has undergone multiple imaging studies, including a CT of the lumbar spine which demonstrated canal stenosis as well as some degenerative disk disease and mild compression deformity of L3 and L5 superior endplate. X-ray of his right knee showed degenerative changes, vascular calcifications, and clips, and x-rays of his hips demonstrated no acute pathology. Vascular calcifications were noted and there were some degenerative changes, patent SI joints. Retained stool was also noted. Blood work showed some elevation in WBCs on admission at 12.5, but repeated on July 07 normalization to 8.6, stable hemoglobin 13.2, and stable platelet count 184. Chemistry is pending today. He had an elevated BUN of 27, creatinine 0.9, elevated BNP level at 3523, decreased albumin of 3.2, and slight elevation in alkaline phosphatase of 194, normal AST and ALT, normal magnesium level of 2.2. Patient is on Roxicodone for pain. He had a B12 level which was normal at 530. TSH was elevated at 7.21. PAST MEDICAL AND SURGICAL HISTORY: As above. Also, a history of hypertension, hyperlipidemia, coronary artery disease, status post coronary artery bypass graft. SOCIAL HISTORY: Lives alone. Has stairs. Premorbidly ambulation has been deteriorating and he uses a walker but is limited due to loss of balance and right leg weakness as well as right foot drop. Former tobacco user and quit smoking about 40 years ago. Occasional alcohol. ALLERGIES: None noted per the admitting history and physical. REVIEW OF SYSTEMS: No headache. No lightheadedness, dizziness. No blurry vision, double vision that is new. No nausea or vomiting, difficulty swallowing, difficulty chewing. No chest pain or shortness of breath. He does have some weakness of the right upper extremity, but this is old and not changed. The weakness in the right lower extremity is more acute per the patient. He has some coldness in the feet. He has electrical shocks in the right lower extremity but no noted numbness or tingling in the upper or lower extremities. Severe weakness of the right more than left lower extremity, especially in lifting his foot as well as his leg when lying either supine or on his left side. He is unable to lift the right leg off the stretcher. He has chronic swelling. No change in bowel. No fever or chills. PHYSICAL EXAMINATION: General: Patient is seen lying on a stretcher. He is awake and cooperative, in no acute distress. HEENT: Normocephalic and atraumatic. His extraocular muscles appear intact. He has no obvious facial weakness. Neck: Supple. Extremities: He has got some edema. He also has right lower extremity graft donor site healed and left lower extremity chronic changes from osteomyelitis surgical site and chronic venostasis changes bilaterally. Neuromuscular: He is awake, alert, fully oriented x3. He has good insight into his medical condition. Cranial nerves II-XII appear grossly intact. He has got some weakness in his right upper extremity. Evidence of prior surgery proximally. Good distal strength. Osteo degenerative changes noted in his hands but normal sensation. In the lower extremities, he has diminished sensation to pinprick in the lower extremities distally but severe weakness in dorsiflexion on the right at 0 to 1/5. Left lower extremity is more fixed in the ankle with limited range of motion but better strength, although difficult to fully test. His left proximal lower extremity has 3/5 strength. The right has only 1 to 2/5 strength. Absent reflexes in the lower extremities. Results of EMG nerve conduction studies: Please refer to report for details. OVERALL IMPRESSION: 1. Limited study due to edema, prior surgery in the left lower extremity. 2. Patient has denervation both in the lumbosacral paraspinals bilaterally as well as mainly right more than left L5 as well as right L3 enervated muscles which most likely is due to lumbar radiculopathy, although this can be seen in a diabetic amyotrophy occasionally. 3. Probable underlying diabetic polyneuropathy. 4. Gait disorder, multifactorial. 5. Right foot drop. 6. Left lower extremity osteomyelitis, status post surgery. 7. Underlying lumbar canal stenosis. 8. History of coronary artery disease, status post coronary artery bypass graft. 9. Longstanding diabetes for 15 years. 10. Other past medical history as above. PLAN AND SUGGESTIONS: 1. Follow up with Neurology, Dr. Delgado. 2. Follow up with Neurosurgery, Dr. Anthony Sorto. 3. Consider physical therapy. 4. May benefit a from a right ankle foot orthosis as an outpatient. 5. DVT prophylaxis is suggested due to immobility if not medically contraindicated. 6. Agree with gabapentin. Would increase and monitor edema of the lower extremities. Currently is on 100 mg 3 times a day. 7. Skin precautions. Avoid prolonged sacral and heel pressure monitor for erythema or skin breakdown. 8. Monitor for constipation. 9. Strongly consider short-term rehabilitation in a halfway facility or [place] if he is a candidate for both physical and occupational therapy. Thank you for this referral. BERKLEY MOTT M.D. SADIE/[id number]
[2017-07-09] MEDS ORDERED: FOLIC ACID 1 MG TABLET (FP) PO SCH (11:27)
[2017-07-09] MEDS: CARVEDILOL 6.25 MG TABLET (FP) PO SCH ×2 (11:40→22:29)
[2017-07-09] MEDS: ASCORBIC ACID 500 MG TABLET (FP) PO SCH (11:40)
[2017-07-09] MEDS: FUROSEMIDE 20 MG TABLET (FP) PO SCH (11:40)
[2017-07-09] MEDS: ASPIRIN COATED 81 MG TABLET.EC PO SCH (11:40)
[2017-07-09] MEDS: DOCUSATE SODIUM 100 MG CAPSULE (FP) PO SCH (11:40)
[2017-07-09] MEDS: DIGOXIN 0.125 MG TABLET (FP) PO SCH (11:41)
[2017-07-09] MEDS: CYANOCOBALAMIN 1,000 MCG TABLET (FP) PO SCH (11:41)
[2017-07-09] MEDS: AMIODARONE HCL 200 MG TABLET (FP) PO SCH (11:41)
[2017-07-09] MEDS: ISOSORBIDE MONONITRATE 30 MG TAB.SR.24H (FP) PO SCH (11:41)
[2017-07-09] MEDS: VALSARTAN 80 MG TABLET (UD) PO SCH (11:41)
[2017-07-09] MEDS: PHENYTOIN NA EXTENDED 100 MG CAPSULE (FP) PO SCH ×2 (11:42→22:29)
[2017-07-09] MEDS: PYRIDOXINE HCL (B-6) 50 MG TABLET (FP) PO SCH (11:43)
[2017-07-09] MEDS: OMEGA-3 ACID ETHYL ESTERS (FATTY-ACIDS) 1 GM CAPSULE (FP) PO SCH (11:43)
[2017-07-09] MEDS: FLAXSEED OIL 1000 MG PO SCH ×3 (12:28→13:42)
[2017-07-09] MEDS: PATIENT'S OWN MEDICATION (NON-FORMULARY) (Folic Acid [Folic Acid] 0.8 MG) PO SCH ×3 (12:28→13:42)
[2017-07-09] MEDS: MAGNESIUM 30 MG PO SCH ×3 (12:29→13:42)
[2017-07-09] MEDS: PATIENT'S OWN MEDICATION (NON-FORMULARY) (Zinc [Zinc] 50 MG) PO SCH ×3 (12:30→13:43)
[2017-07-09] MEDS: PATIENT'S OWN MEDICATION (NON-FORMULARY) (Ubidecarenone/Vit E Acetate [Co Q-10 100 Mg Soft PO SCH ×3 (12:30→13:43)
[2017-07-09] MEDS: POTASSIUM CHLORIDE 5 MEQ PO SCH ×3 (12:30→13:43)
--- NOTE | 2017-07-09 13:53 | PN ---
Progress Note, Physician Chief Complaint: events noted Has weakness of right leg difficult to lift leg difficult to get out of bed - Current Medication List Current Medications: Active Medications Alprazolam (Xanax -) 1 mg PO BID [facility] Last Admin: 07/09/17 11:44 Dose: Not Given Amiodarone HCl (Cordarone -) 200 mg PO DAILY [facility] Last Admin: 07/09/17 11:41 Dose: 200 mg Ascorbic Acid (Vitamin C -) 1,000 mg PO DAILY [facility] Last Admin: 07/09/17 11:40 Dose: 1,000 mg Aspirin (Ecotrin -) 81 mg PO DAILY [facility] Last Admin: 07/09/17 11:40 Dose: 81 mg Atorvastatin Calcium (Lipitor -) 80 mg PO HS [facility] Last Admin: 07/08/17 21:06 Dose: 80 mg Carvedilol (Coreg -) 6.25 mg PO BID [facility] Last Admin: 07/09/17 11:40 Dose: 6.25 mg Cyanocobalamin (Vitamin B12 -) 1,000 mcg PO DAILY [facility] Last Admin: 07/09/17 11:41 Dose: 1,000 mcg Diazepam (Valium -) 2 mg PO ONCE PRN PRN Reason: ANXIETY Stop: 07/07/17 17:45 Digoxin (Lanoxin -) 0.125 mg PO DAILY [facility] Last Admin: 07/09/17 11:41 Dose: 0.125 mg Docusate Sodium (Colace -) 100 mg PO DAILY [facility] Last Admin: 07/09/17 11:40 Dose: 100 mg Folic Acid (Folic Acid -) 1 mg PO DAILY [facility] Furosemide (Lasix -) 20 mg PO DAILY [facility] Last Admin: 07/09/17 11:40 Dose: 20 mg Gabapentin (Neurontin -) 100 mg PO TID [facility] Ibuprofen (Motrin -) 600 mg PO Q6H PRN PRN Reason: FEVER Insulin Aspart (Novolog Vial Sliding Scale -) [facility]: Protocol Last Admin: 07/09/17 06:42 Dose: Not Given Insulin Detemir (Levemir Vial) 20 units SQ HS [facility] Last Admin: 07/08/17 21:08 Dose: 20 units Isosorbide Mononitrate (Imdur -) 30 mg PO DAILY [facility] Last Admin: 07/09/17 11:41 Dose: 30 mg Morphine Sulfate (Morphine Injection -) 2 mg IVPUSH Q4H PRN PRN Reason: BACK PAIN Last Admin: 07/08/17 16:50 Dose: 2 mg [id number] Ethyl Esters (Lovaza -) 1 gm PO DAILY [facility] Last Admin: 07/09/17 11:43 Dose: 1 gm Ondansetron HCl (Zofran Injection) 4 mg IVPB Q6H PRN PRN Reason: NAUSEA Phenytoin Sodium (Dilantin -) 300 mg PO BID [facility] Last Admin: 07/09/17 11:42 Dose: 300 mg Pyridoxine HCl (Vitamin B6 -) 50 mg PO DAILY [facility] Last Admin: 07/09/17 11:43 Dose: 50 mg Valsartan (Diovan -) 80 mg PO DAILY [facility] Last Admin: 07/09/17 11:41 Dose: 80 mg Zinc Sulfate (Orazinc -) 220 mg PO DAILY [facility] - Objective Vital Signs: Vital Signs Temperature 98 F 07/09/17 08:14 Pulse Rate 81 07/09/17 11:41 Respiratory Rate 20 07/09/17 08:14 Blood Pressure 150/80 07/09/17 08:14 O2 Sat by Pulse Oximetry (%) 96 07/09/17 03:00 Constitutional: Yes: No Distress Cardiovascular: Yes: Regular Rate and Rhythm Respiratory: Yes: CTA Bilaterally Gastrointestinal: Yes: Normal Bowel Sounds, Soft. No: Distention, Tenderness Edema: Yes Problem List - Problems (1) Anxiety Code(s): F41.9 - ANXIETY DISORDER, UNSPECIFIED (2) CAD (coronary artery disease) Code(s): I25.10 - ATHSCL HEART DISEASE OF [place] CORONARY ARTERY W/O ANG PCTRS (3) Gait abnormality Code(s): R26.9 - UNSPECIFIED ABNORMALITIES OF GAIT AND MOBILITY (4) Lumbosacral disc disease Code(s): M51.9 - UNSP THORACIC, THORACOLUM AND LUMBOSACR INTVRT DISC DISORDER Assessment/Plan PLAN Pain control PT eval EMG done today Xrays -- no fracture will need MRI LS Spine -- but pt wants it to be open MRI continue with meds Pt is on Dicloxacillin for chronic osteomyelitis-- spoke with DR Flaherty-- PMD
[2017-07-09] MEDS: GABAPENTIN 100 MG CAPSULE (FP) PO SCH ×2 (15:44→22:29)
[2017-07-09] MEDS: morphine CARPU-JECT 4 MG/1 ML DISP.SYRIN IVPUSH PRN (17:15)
[2017-07-09] MEDS: ATORVASTATIN CA 80 MG TABLET (FP) PO SCH (22:29)
[2017-07-09] MEDS: INSULIN DETEMIR 100 UNITS/ML MDV SQ SCH (22:30)
[2017-07-10] MEDS: GABAPENTIN 100 MG CAPSULE (FP) PO SCH ×2 (06:14→13:39)
[2017-07-10] MEDS: INSULIN SLIDING SCALE (NOVOLOG) 1 VIAL SQ SCH (06:14)
[2017-07-10] MEDS: DICLOXACILLIN SODIUM 250 MG CAPSULE PO SCH ×2 (06:15→13:39)
--- NOTE | 2017-07-10 08:10 | PN ---
Progress Note (short form) - Note Progress Note: NEUROSURGERY Still with R LE pain AF, VSS PE: HEENT- NC/AT, L parietal scalp incision healed; neck- supple; Cor- RR; Lungs - CTA B; Abd- benign; Ext- L lower leg old osteo site; R LE graft donor site clean; chronic venous changes CN- intact; Motor- B shoulder 4/5; R DF/PF 0-1; R IP 2, R Quad 3; L DF/PF 4+; Sensation- intact LT; DTR- hyporeflexic ESR 25, CRP 2.0 CT LS spine: Multilevel spondylosis and DDD, worst at L2-3 and L4-5 with spondylosis; mild-moderate facet hypertrophy and mild-moderate L3-4 and L4-5 lateral recess narrowing; no severe stenosis noted; mild L3 and L5 sup endplate depression more likely degenerative given DDD findings above. Arterial Doppler- moderate LE; no hemodynamically significant stenosis EMG- B L5 and R L3 radiculopathy; NCS suboptimal with prior surgeries and LE edema Multilevel lumbar DDD, spondylosis and mild stenosis R LE radiculopathy but his relatively benign LS CT findings alone could not explain his profound R foot > proximal R LE weakness (mostly unilateral symptoms ) Need LS spine non-contrast MRI to r/o acute L3/L5 sup endplate fx vs chronic DDD with endplate changes and to ascertain degree of stenosis, though unable to tolerate closed MRI unfortunately Doubt pt is a surgical candidate for lumbar spine surgery given multiple significant medical co-morbidities Pros and cons d/w pt
[2017-07-10] MEDS ORDERED: PT OWN MED DRAWER 7, Y5N ONE ×2 (09:47→13:35)
[2017-07-10] MEDS: ALPRAZolam 2 MG TABLET PO SCH (09:49)
[2017-07-10] MEDS: CYANOCOBALAMIN 1,000 MCG TABLET (FP) PO SCH (09:50)
[2017-07-10] MEDS: ASPIRIN COATED 81 MG TABLET.EC PO SCH (09:51)
[2017-07-10] MEDS: CARVEDILOL 6.25 MG TABLET (FP) PO SCH (09:51)
[2017-07-10] MEDS: DIGOXIN 0.125 MG TABLET (FP) PO SCH (09:51)
[2017-07-10] MEDS: DOCUSATE SODIUM 100 MG CAPSULE (FP) PO SCH (09:52)
[2017-07-10] MEDS: ISOSORBIDE MONONITRATE 30 MG TAB.SR.24H (FP) PO SCH (09:52)
[2017-07-10] MEDS: VALSARTAN 80 MG TABLET (UD) PO SCH (09:52)
[2017-07-10] MEDS: FUROSEMIDE 20 MG TABLET (FP) PO SCH (09:52)
[2017-07-10] MEDS: ASCORBIC ACID 500 MG TABLET (FP) PO SCH (09:52)
[2017-07-10] MEDS: AMIODARONE HCL 200 MG TABLET (FP) PO SCH (09:52)
[2017-07-10] MEDS: PHENYTOIN NA EXTENDED 100 MG CAPSULE (FP) PO SCH (09:53)
[2017-07-10] MEDS: PYRIDOXINE HCL (B-6) 50 MG TABLET (FP) PO SCH (09:54)
[2017-07-10] MEDS: OMEGA-3 ACID ETHYL ESTERS (FATTY-ACIDS) 1 GM CAPSULE (FP) PO SCH (09:54)
[2017-07-10] MEDS ORDERED: ZINC SULFATE 220 MG CAPSULE (FP) PO SCH (10:00)
--- NOTE | 2017-07-10 11:29 | PN ---
Progress Note (short form) - Note Progress Note: 76yo Male patient--pt of Dr. Flaherty-- with extensive history that of HTN, HLD, PVD, cad--Cardiac Bypass, IDDM, Chronic Osteomyelitis left leg-- on suppressive abx , Anxiety presents bc of right hip pain that radiates down right thigh and wraps around right knee. Sx started apx 4 weeks, ago but worse over two weeks, and now to point that he can not ambulate, dragging R leg HX of CT [facility] joes -- ? meningioma, outpt MRI BRAIN N/A (upright imaging) Patient states he recently had MRI by Dr. Galarza that showed DDD, Arthritis, and Spinal Stenosis. CT LS spine: Mutilevel spondylosis and DDD, worst at L2-3 and L4-5 with spondylosis; mild-moderate facet hypertrophy and mild-moderate L3-4 and L4-5 lateral recess narrowing; no severe stenosis noted; mild L3 and L5 sup endplate depression more likely degenerative given DDD findings above. WBC 12.5; Hgb 13.6; Cr 1.0, ESR 35 Multilevel lumbar DDD, spondylosis and mild stenosis on oxycodone and morphine, ? Hx of seizures-on dilantin FU: weakness R >L leg continues + compression FX on CT scan seen by NS and ortho--oupt scan of head --no sign mass to explain R leg weakness EMG reviewed shows acute active denervation multilevlel R >L musculature, though unfortunately still does not localize problem, root vs plexus vs assymetric neuropathy O5b--QS controlled - Past Medical History [employer]: Yes: Peripheral Neuropathy Cardio/Vascular: Yes: CAD Psych: Yes: Anxiety Musculoskeletal: Yes: Chronic low back pain - Alcohol/Substance Use Hx Alcohol Use: Yes (OCCAS) History of Substance Use: reports: None - Smoking History Smoking history: Former smoker Have you smoked in the past 12 months: No If you are a former smoker, when did you quit?: 40YRS AGO Home Medications - Allergies Allergies/Adverse Reactions: Allergies Allergy/AdvReac Type Severity Reaction Status Date / Time No Known Drug Allergies Allergy Verified 07/06/17 06:25 - Home Medications Home Medications: Ambulatory Orders Amiodarone HCl [Cordarone -] 200 mg PO DAILY 08/25/13 Ascorbic Acid [Vitamin C] 1,000 mg PO DAILY 08/25/13 Aspirin Coated [Ecotrin -] 81 mg PO DAILY 08/25/13 Atorvastatin Ca [Lipitor] 80 mg PO HS 08/25/13 Carvedilol [Coreg -] 6.25 mg PO BID 08/25/13 Dicloxacillin Sodium 500 mg PO TID 08/25/13 Digoxin [Lanoxin -] 0.5 mg PO DAILY 08/25/13 Flaxseed Oil 1,000 mg PO DAILY 08/25/13 Folic Acid 0.8 mg PO DAILY 08/25/13 Furosemide [Lasix -] 20 mg PO DAILY 08/25/13 Ibuprofen [Motrin -] 600 mg PO TID 08/25/13 Insulin Glargine,Hum.rec.anlog [Lantus (10mL VIAL) -] 20 units SQ HS 08/25/13 Magnesium 30 mg PO DAILY 08/25/13 Phenytoin Sodium Extended [Phenytek] 300 mg PO BID 08/25/13 Potassium Chloride [K-Tab] 5 meq PO DAILY 08/25/13 Pyridoxine HCl (B-6) [Vitamin B6 -] 50 mg PO DAILY 08/25/13 Valsartan [Diovan] 80 mg PO DAILY 08/25/13 Zinc 50 mg PO DAILY 08/25/13 Insulin Lispro [Humalog] 5 unit SQ TID 08/26/13 Alprazolam [Xanax] 1 mg PO BID 07/06/17 Cyanocobalamin [Vitamin B12 -] 1,000 mcg PO DAILY 07/06/17 Docusate Sodium [Colace -] 100 mg PO DAILY 07/06/17 Isosorbide Mononitrate [Imdur -] 30 mg PO DAILY 07/06/17 [place]-3 Fatty Acids [[place]-3] 1,000 mg PO DAILY 07/06/17 Tramadol HCl 50 mg PO QID 07/06/17 Ubidecarenone/Vit E Acetate [Co Q-10 100 mg Softgel] 1 each PO DAILY 07/06/17 Physical Exam-Neuro Vital Signs: Vital Signs Temperature 98.2 F 07/10/17 06:00 Pulse Rate 76 07/10/17 09:51 Respiratory Rate 20 07/10/17 06:00 Blood Pressure 119/71 07/10/17 06:00 O2 Sat by Pulse Oximetry (%) 96 07/09/17 22:00 Constitutional: Yes: Well Nourished, No Distress Labs: CBCD WBC 8.6 K/mm3 (4.0-10.0) D 07/07/17 07:20 RBC 4.09 M/mm3 (4.00-5.60) 07/07/17 07:20 Hgb 13.2 GM/dL (11.7-16.9) 07/07/17 07:20 Hct 39.6 % (35.4-49) 07/07/17 07:20 MCV 96.8 fl (80-96) H 07/07/17 07:20 MCHC 33.4 g/dl (32.0-35.9) 07/07/17 07:20 RDW 14.5 % (11.9-15.9) 07/07/17 07:20 Plt Count 184 K/MM3 (134-434) 07/07/17 07:20 MPV 8.7 fl (7.5-11.1) 07/07/17 07:20 CMP Sodium 142 mmol/L (136-145) 07/07/17 07:20 Potassium 4.8 mmol/L (3.5-5.1) 07/07/17 07:20 Chloride 104 mmol/L (98-107) 07/07/17 07:20 Carbon Dioxide 31 mmol/L (21-32) 07/07/17 07:20 Anion Gap 7 (8-16) L 07/07/17 07:20 BUN 27 mg/dL (7-18) H 07/07/17 07:20 Creatinine 0.9 mg/dL (0.7-1.3) 07/07/17 07:20 Creat Clearance w eGFR > 60 (>60) 07/07/17 07:20 Calcium 8.6 mg/dL (8.5-10.1) 07/07/17 07:20 Total Bilirubin 0.5 mg/dL (0.2-1.0) 07/07/17 07:20 AST 35 U/L (15-37) 07/07/17 07:20 ALT 37 U/L (12-78) 07/07/17 07:20 Alkaline Phosphatase 194 U/L (45-117) H 07/07/17 07:20 Total Protein 6.6 g/dl (6.4-8.2) 07/07/17 07:20 Albumin 3.2 g/dl (3.4-5.0) L 07/07/17 07:20 - Neuro Exam Level Of Consciousness: Yes: Alert, Oriented to Person (EOmI, VFF, atrophy R biceps (surgical?), rest UE 5/5, LE weakness R IP 3/5, R HAM 4/5, R TA 4/5-- long tract pattern, LLE 5/5, no sensory level, dec PP R distal calve, reflexes UE 1+, LE (-), plantars down ) Problem List - Problems (1) IDDM (insulin dependent diabetes mellitus) Code(s): E11.9 - TYPE 2 DIABETES MELLITUS WITHOUT COMPLICATIONS Z79.4 - SHELTER (CURRENT) USE OF INSULIN (2) Low back pain Code(s): M54.5 - LOW BACK PAIN Qualifiers: Chronicity: acute Back pain laterality: bilateral Sciatica presence : without sciatica Qualified Code(s): M54.5 - Low back pain (3) Lumbosacral disc disease Code(s): M51.9 - UNSP THORACIC, THORACOLUM AND LUMBOSACR INTVRT DISC DISORDER (4) Gait abnormality Code(s): R26.9 - UNSPECIFIED ABNORMALITIES OF GAIT AND MOBILITY Assessment/Plan 76yo Male patient--pt of Dr. Flaherty-- with extensive history that of HTN, HLD, PVD, cad--Cardiac Bypass, IDDM, Chronic Osteomyelitis left leg-- with progressive right leg monoparesis (with foot drop) long tract pattern though reflexes and sensory eval not corroborating-- as such , multilevel LS spine disease or LS plexopathy in differential ( ? diabetic amyotrophy--though this is usually proximally weakness in quads);brain meningioma would not explain R leg weakness B/l findings on EMG, so asymmetric neuropathy vs plexopathy in differential, will need FU EMG in one month will check LP (glucose, protein, cell count--elevated protein may corroborate inflam cause) check CHERELLE, RF, ANT Ds DNA, MARY, await SPEP/[place], ? paraneoplastic, check MRI LS spine (sedation with valium PRN)--to be done outpt will need rehab placement pain RX Dr Delgado Problem List - Problems (1) IDDM (insulin dependent diabetes mellitus) Code(s): E11.9 - TYPE 2 DIABETES MELLITUS WITHOUT COMPLICATIONS Z79.4 - SHELTER (CURRENT) USE OF INSULIN (2) Low back pain Code(s): M54.5 - LOW BACK PAIN Qualifiers: Qualified Code(s): M54.5 - Low back pain (3) Lumbosacral disc disease Code(s): M51.9 - UNSP THORACIC, THORACOLUM AND LUMBOSACR INTVRT DISC DISORDER (4) Gait abnormality Code(s): R26.9 - UNSPECIFIED ABNORMALITIES OF GAIT AND MOBILITY
[2017-07-10 13:57] VITALS: BP 102/50; PULSE 63; TEMP 99.2
[2017-07-10 14:14] LABS: A/G RATIO 1.1 (0.7-1.7); ALBUMIN 3.2 g/dL (2.9-4.4); GLOBULIN, TOTAL 2.8 g/dL (2.2-3.9)
[2017-07-10 14:22] LABS: HIV 1 & 2 AB NEGATIVE; HIV 1 AGp24 NEGATIVE
--- NOTE | 2017-07-10 14:29 | DS ---
Physical Examination Vital Signs: Vital Signs Temperature 99.2 F 07/10/17 13:55 Pulse Rate 63 07/10/17 13:55 Respiratory Rate 18 07/10/17 13:55 Blood Pressure 102/50 07/10/17 13:55 O2 Sat by Pulse Oximetry (%) 97 07/10/17 10:00 Constitutional: Yes: No Distress, Calm Cardiovascular: Yes: Regular Rate and Rhythm Respiratory: Yes: CTA Bilaterally Gastrointestinal: Yes: Normal Bowel Sounds, Soft. No: Distention, Tenderness Edema: Yes Discharge Summary Reason For Visit: LOWER BACK PAIN,neuropathy, weakness Current Active Problems Anxiety (Acute) CAD (coronary artery disease) (Acute) Gait abnormality (Acute) IDDM (insulin dependent diabetes mellitus) (Acute) Knee pain, right (Acute) Low back pain (Acute) Lumbosacral disc disease (Acute) Hospital Course: Pt admitted with progressive weakness of Rt leg-- seen by Neurology and Neurosurgery Unable to get MRI LS Spine- he wants Open MRI EMG-- polyneuropathy-- lumbosacral radiculopathy Pt on Neurontin and pain meds Assessed by Physiatry and PT-- needs STR He will need LP as an outpt once completed with STR but needs to hold off ASA and Motrin for 7 days prior. Pt aware that he will need to follow up with Dr Posadas and DR zavala after he completes rehab Stable for dc to STR Condition: Fair - Instructions Diet, Activity, Other Instructions: pt will need right foot ankle orthotic Will need to follow up with DR Posadas and Dr Zavala after completion of rehab Referrals: Abhi Delgado DO [Staff Physician] - Atnhony Zavala MD [Staff Physician] - Mika Flaherty MD [Primary Care Provider] - Disposition: [facility] F[facility] - Home Medications Comprehensive Discharge Medication List: Ambulatory Orders Amiodarone HCl [Cordarone -] 200 mg PO DAILY 08/25/13 Ascorbic Acid [Vitamin C] 1,000 mg PO DAILY 08/25/13 Aspirin Coated [Ecotrin -] 81 mg PO DAILY 08/25/13 Atorvastatin Ca [Lipitor] 80 mg PO HS 08/25/13 Carvedilol [Coreg -] 6.25 mg PO BID 08/25/13 Dicloxacillin Sodium 500 mg PO TID 08/25/13 Digoxin [Lanoxin -] 0.5 mg PO DAILY 08/25/13 Flaxseed Oil 1,000 mg PO DAILY 08/25/13 Folic Acid 0.8 mg PO DAILY 08/25/13 Furosemide [Lasix -] 20 mg PO DAILY 08/25/13 Ibuprofen [Motrin -] 600 mg PO TID 08/25/13 Insulin Glargine,Hum.rec.anlog [Lantus (10mL VIAL) -] 20 units SQ HS 08/25/13 Magnesium 30 mg PO DAILY 08/25/13 Phenytoin Sodium Extended [Phenytek] 300 mg PO BID 08/25/13 Potassium Chloride [K-Tab] 5 meq PO DAILY 08/25/13 Pyridoxine HCl (B-6) [Vitamin B6 -] 50 mg PO DAILY 08/25/13 Valsartan [Diovan] 80 mg PO DAILY 08/25/13 Zinc 50 mg PO DAILY 08/25/13 Insulin Lispro [Humalog] 5 unit SQ TID 08/26/13 Alprazolam [Xanax] 1 mg PO BID 07/06/17 Cyanocobalamin [Vitamin B12 -] 1,000 mcg PO DAILY 07/06/17 Docusate Sodium [Colace -] 100 mg PO DAILY 07/06/17 Isosorbide Mononitrate [Imdur -] 30 mg PO DAILY 07/06/17 [place]-3 Fatty Acids [[place]-3] 1,000 mg PO DAILY 07/06/17 Tramadol HCl 50 mg PO QID 07/06/17 Ubidecarenone/Vit E Acetate [Co Q-10 100 mg Softgel] 1 each PO DAILY 07/06/17
== END 2017-07-10 16:07 | DRG 74 ==
LOC: JER 05:36 → JERBED 11:18 → J5S 13:30 → OBSVTOIN 07-09 11:26
PROVIDERS: ADMIT Internal Medicine; ATTEND Internal Medicine
DX: E11.42 Type 2 diabetes mellitus with diabetic polyneuropathy (principal); M86.68 Other chronic osteomyelitis, other site; M48.56XA Collapsed vertebra, not elsewhere classified, lumbar region, initial encounter for fracture; E11.69 Type 2 diabetes mellitus with other specified complication; I10 Essential (primary) hypertension; E78.5 Hyperlipidemia, unspecified; I73.89 Other specified peripheral vascular diseases; F41.8 Other specified anxiety disorders; E03.9 Hypothyroidism, unspecified; M54.5 Low back pain; I25.10 Atherosclerotic heart disease of native coronary artery without angina pectoris; M48.00 Spinal stenosis, site unspecified; R26.9 Unspecified abnormalities of gait and mobility; M51.37 Other intervertebral disc degeneration, lumbosacral region; D32.0 Benign neoplasm of cerebral meninges; M54.17 Radiculopathy, lumbosacral region; M21.371 Foot drop, right foot; M17.10 Unilateral primary osteoarthritis, unspecified knee; M47.896 Other spondylosis, lumbar region; Z79.4 Long term (current) use of insulin; Z95.1 Presence of aortocoronary bypass graft; Z87.891 Personal history of nicotine dependence
CPT/HCPCS: 36415; 71010-TC; 72131-TC; 73502-TC-LT; 73502-TC-RT; 73560-TC-RT; 80053; 80162; 81003; 81015; 82607; 83036; 83735; 83880; 84155; 84165; 84443; 85025; 85651; 86140; 86618; 87389; 93925-TC; 95860-TC; 97116-GP; 97161-GP; 99282-25; G0378

== ENCOUNTER 2018-04-22 08:30 | Inpatient (IN) | payer OTHER, BC ==
--- NOTE | 2018-04-22 08:40 | PDOC ---
History of Present Illness - General Stated Complaint: CHEST PAIN Time Seen by Provider: 04/22/18 08:33 History Source: Patient, EMS, Family Exam Limitations: No Limitations - History of Present Illness Initial Comments: This is a 77 YOM with h/o CHF (takes lasix 40 mg daily), BLE lymphedema, IDDM, CAD s/p 4-vessel CABG, parietal meningioma resection in 2001, anxiety (takes alprazolam), A-fib (takes amiodarone and digoxin, taken of AC about a year ago) , HTN (takes cardevilol and valsartan), hypothyroidism (on levothyroxine), and tobacco use (smoker) who p/w midsternal non-radiating 5/10 chest discomfort onset about 7:30 am today while he was attempting to change the dressings on his legs. The discomfort lasted about 20 minutes and resolved with rest and without medications. EMS arrived on scene, found his vitals to be within normal limits, took a field EKG which showed no signs of acute ischemia, and gave him 324 mg ASA PO. The patient notes having drank about 50 oz water last night and has only urinated about 15 oz as of this morning. He also notes worsening swelling in both legs. He denies any new headache, dizziness, lightheadedness, SOB, cough, orthopnea, abdominal pain, back pain, burning/pain on urination, lesions on his legs, or other symptoms. He notes being adherent to his medication regimen. Past History - Past Medical History Allergies/Adverse Reactions: Allergies Allergy/AdvReac Type Severity Reaction Status Date / Time No Known Drug Allergies Allergy Verified 04/22/18 08:42 Home Medications: Ambulatory Orders Amiodarone HCl [Cordarone -] 300 mg PO DAILY 08/25/13 Ascorbic Acid [Vitamin C] 1,000 mg PO DAILY 08/25/13 Aspirin Coated [Ecotrin -] 81 mg PO DAILY 08/25/13 Atorvastatin Ca [Lipitor] 80 mg PO HS 08/25/13 Carvedilol [Coreg -] 6.25 mg PO BID 08/25/13 Dicloxacillin Sodium 500 mg PO TID 08/25/13 Digoxin [Lanoxin -] 0.125 mg PO DAILY 08/25/13 Flaxseed Oil 1,000 mg PO DAILY 08/25/13 Folic Acid 0.8 mg PO DAILY 08/25/13 Furosemide [Lasix -] 40 mg PO BID 08/25/13 Insulin Glargine,Hum.rec.anlog [Lantus (10mL VIAL) -] 20 units SQ HS 08/25/13 Magnesium 30 mg PO DAILY 08/25/13 Phenytoin Sodium Extended [Phenytek] 300 mg PO BID 08/25/13 Potassium Chloride [K-Tab] 10 meq PO DAILY 08/25/13 Pyridoxine HCl (B-6) [Vitamin B6 -] 50 mg PO DAILY 08/25/13 Zinc 50 mg PO DAILY 08/25/13 Insulin Lispro [Humalog] 0 unit SQ TID 08/26/13 Alprazolam [Xanax] 1 mg PO BID 07/06/17 Cyanocobalamin [Vitamin B12 -] 1,000 mcg PO DAILY 07/06/17 Docusate Sodium [Colace -] 100 mg PO DAILY 07/06/17 [place]-3 Fatty Acids [[place]-3] 1,000 mg PO DAILY 07/06/17 Ubidecarenone/Vit E Acet [Co Q-10 100 mg Softgel] 1 each PO DAILY 07/06/17 Ibuprofen [Motrin -] 600 mg PO Q6H PRN #30 tablet 07/10/17 Levothyroxine [Synthroid -] 200 mcg PO DAILY 04/22/18 Cancer: Yes (brain tumor) Cardiac Disorders: Yes (bypass sx) Diabetes: Yes Thyroid Disease: Yes (HYPO) - Surgical History Appendectomy: Yes Cardiac Surgery: Yes (CABG) Neurologic Surgery: Yes (MENINGIOMA REMOVED) - Suicide/Smoking/Psychosocial Hx Smoking History: Former smoker Have you smoked in the past 12 months: No If you are a former smoker, when did you quit?: 40YRS AGO Hx Alcohol Use: Yes (OCCAS) Drug/Substance Use Hx: No Substance Use Type: Alcohol Hx Substance Use Treatment: No Review of Systems - Review of Systems Able to Perform ROS?: Yes Constitutional: No: Chills, Fever, Unexplained wgt Loss HEENTM: No: Nose Congestion, Throat Pain Respiratory: No: Cough, Shortness of Breath Cardiac (ROS): Yes: Chest Pain, Edema. No: Palpitations ABD/GI: No: Constipated, Diarrhea, Nausea, Vomiting : No: Burning, Dysuria Musculoskeletal: No: Back Pain, Neck Pain Integumentary: No: Bruising, Rash Neurological: No: Headache, Numbness, Tingling, Weakness, Dizziness Endocrine: No: Unexplained Weight Gain, Unexplained Weight Loss *Physical Exam - Vital Signs Last Vital Signs Temp Pulse Resp BP Pulse Ox 58 L 18 107/94 97 04/22/18 08:30 04/22/18 08:30 04/22/18 08:30 04/22/18 08:52 - Physical Exam General Appearance: Yes: Nourished, Appropriately Dressed, Obese (morbidly), Other (nontoxic appearing older adult male who is in no distress, conversive, and answering questions appropriately, accompanied by daughter who helps answer questions). No: Apparent Distress HEENT: positive: EOMI, COURTNEY, Normal Voice, Hearing Grossly Normal. negative: Scleral Icterus (R), Scleral Icterus (L), Nasal Congestion Neck: positive: Trachea midline, Supple. negative: Tender, Rigid Respiratory/Chest: positive: Lungs Clear, Normal Breath Sounds. negative: Respiratory Distress, Rapid RR, Decreased Breath Sounds, Crackles, Rhonchi, Stridor, Wheezing Cardiovascular: positive: S1, S2, Edema (4+ BLE pitting edema to feet/ankles extending up to sacrum, legs in dressings/MARY bandages), Irregularly Irregular. negative: Murmur Gastrointestinal/Abdominal: positive: Normal Bowel Sounds, Soft, Protuberent. negative: Tender, Organomegaly, Pulsatile Mass, Guarding Musculoskeletal: positive: Normal Inspection. negative: Decreased Range of Motion, Vertebral Tenderness Extremity: positive: Normal Capillary Refill, Normal Range of Motion, Other ( BLE with 3+ pitting edema, prior scarring and skin graft, persistent soft tissue indentations from compression garments). negative: Tender, Cyanosis Integumentary: positive: Dry, Warm, Other (BLE with scaling and dryness of skin anteriorly and old subcutaneous bleeding). negative: Erythema, Diaphoresis, Rash, Bruising Neurologic: positive: founder II-XII NML intact (grossly), Fully Oriented, Alert, Normal Mood/Affect, Normal Response, Motor Strength 5/5. negative: Facial Droop , Numbness, Sensory Deficit, Confused, Disoriented Heart Score/ECG Review - History History: Moderately suspicious - Electrocardiogram EKG: Normal - Age Age: >/= 65 - Risk Factors Risk Factors Heart Score: Yes Hx Hypercholesterolemia, Yes Hx Hypertension, Yes Hx Diabetes, Yes Hx Obesity Based on the list above the patient has:: >/=3 risk factors or Hx atherosclerotic disease #1 04/22/18 08:40 A-rib with rate 59, low voltage, left axis deviation, poor R wave progression, no obvious signs of ischemia. ED Treatment Course - LABORATORY CBC & Chemistry Diagram: 04/22/18 08:45 04/22/18 08:45 - ADDITIONAL ORDERS Additional order review: Laboratory Results 04/22/18 04/22/18 04/22/18 08:45 08:45 08:45 PT with INR INR PTT (Actin FS) 27.6 Sodium Potassium Chloride Carbon Dioxide Anion Gap BUN Creatinine Creat Clearance w eGFR Random Glucose Calcium Magnesium Total Bilirubin AST ALT Alkaline Phosphatase Creatine Kinase Creatine Kinase Index CK-MB (CK-2) Troponin I B-Natriuretic Peptide 2743.46 H Total Protein Albumin Blood Type O POSITIVE Antibody Screen Negative 04/22/18 04/22/18 08:45 08:45 PT with INR 13.60 H INR 1.20 H PTT (Actin FS) Sodium 142 Potassium 4.4 Chloride 104 Carbon Dioxide 30 Anion Gap 8 BUN 36 H D Creatinine 1.4 H D Creat Clearance w eGFR 49.14 Random Glucose 54 L D Calcium 7.9 L Magnesium 2.4 Total Bilirubin 0.5 AST 79 H D ALT 74 D Alkaline Phosphatase 248 H D Creatine Kinase 313 H Creatine Kinase Index 0.8 CK-MB (CK-2) 2.80 Troponin I 0.03 B-Natriuretic Peptide Total Protein 6.5 Albumin 3.0 L Blood Type Antibody Screen 04/22/18 08:45 RBC 3.54 L MCV 97.7 H MCHC 33.3 RDW 16.3 H MPV 9.2 Neutrophils % 62.5 Lymphocytes % 16.6 Monocytes % 14.5 H Eosinophils % 3.6 Basophils % 2.8 H D - RADIOLOGY Radiology Studies Ordered: Category Date Time Status CHEST X-RAY PORTABLE* [RAD] Stat Radiology 04/22/18 08:34 Completed Medical Decision Making - Medical Decision Making 04/22/18 08:38 Adult Pt p/w chest pain. Initial Vital Signs Pulse Resp BP Pulse Ox 58 L 18 107/94 100 04/22/18 08:30 04/22/18 08:30 04/22/18 08:30 04/22/18 08:30 Exam: alert, oriented, heart irr irr rhythm, normal lung and abdomen, BLE with 3 + pitting edema, prior scarring and skin graft, persistent soft tissue indentations from compression garments, scaling and dryness of skin anteriorly, old subcutaneous bleeding. DDX IBNLT: ACS, pericarditis, tamponade, aortic dissection, AAA, PTX, PE, esophageal tear, esophagitis (e.g. pill, infectious), esophageal stricture, esophageal FB, gastritis, PUD, pancreatitis, cholecystitis, cholangitis, colitis , bowel perforation, PNA/bronchitis, pleurisy, pleuritis, MVP, pulmonary HTN, musculoskeletal, panic/anxiety, etc. W/U ordered: CBCD CMP Mg Phos Lipase Troponin CK CKMB Coags T&S Blood gas UA UCx EKG CXR. TX ordered: monitor, patient already given ASA 324 in ambulance. Will consider NTG, O2 via NC if needed. EKG: A-rib with rate 59, low voltage, left axis deviation, poor R wave progression, no obvious signs of ischemia. CXR: Laboratory Tests 04/22/18 04/22/18 04/22/18 08:45 08:45 08:45 WBC 6.2 RBC 3.54 L Hgb 11.5 L D Hct 34.6 L MCV 97.7 H MCH 32.6 MCHC 33.3 RDW 16.3 H Plt Count 148 MPV 9.2 Absolute Neuts (auto) 3.9 Neutrophils % 62.5 Lymphocytes % 16.6 Monocytes % 14.5 H Eosinophils % 3.6 Basophils % 2.8 H D Nucleated RBC % 0 PT with INR 13.60 H INR 1.20 H PTT (Actin FS) Sodium 142 Potassium 4.4 Chloride 104 Carbon Dioxide 30 Anion Gap 8 BUN 36 H D Creatinine 1.4 H D Creat Clearance w eGFR 49.14 Random Glucose 54 L D Calcium 7.9 L Magnesium 2.4 Total Bilirubin 0.5 AST 79 H D ALT 74 D Alkaline Phosphatase 248 H D Creatine Kinase 313 H Creatine Kinase Index 0.8 CK-MB (CK-2) 2.80 Troponin I 0.03 B-Natriuretic Peptide Total Protein 6.5 Albumin 3.0 L Blood Type Antibody Screen 04/22/18 04/22/18 04/22/18 08:45 08:45 08:45 WBC RBC Hgb Hct MCV MCH MCHC RDW Plt Count MPV Absolute Neuts (auto) Neutrophils % Lymphocytes % Monocytes % Eosinophils % Basophils % Nucleated RBC % PT with INR INR PTT (Actin FS) 27.6 Sodium Potassium Chloride Carbon Dioxide Anion Gap BUN Creatinine Creat Clearance w eGFR Random Glucose Calcium Magnesium Total Bilirubin AST ALT Alkaline Phosphatase Creatine Kinase Creatine Kinase Index CK-MB (CK-2) Troponin I B-Natriuretic Peptide 2743.46 H Total Protein Albumin Blood Type O POSITIVE Antibody Screen Negative HEART score: Reassessment: HEART score indicated Pt is higher risk and should be managed in hospital with cardiology consult. The Pt is unsafe for discharge at this time. They require further hospital observation, workup, and treatment. Spoke with Dr. Romano, in agreement Pt to be admitted to to: Telemetry IP. Decision to Admit order placed to covering attending Dr. Romano. Consult order placed to cardiology Dr. Silvestre at request of Dr. Romano. *DC/Admit/Observation/Transfer Diagnosis at time of Disposition: TRUDY (acute kidney injury), Hypoglycemia Congestive heart disease Qualifiers: Heart failure type: unspecified Heart failure chronicity: unspecified Qualified Code(s): I50.9 - Heart failure, unspecified Chest pain Qualifiers: Chest pain type: unspecified Qualified Code(s): R07.9 - Chest pain, unspecified Anemia Qualifiers: Anemia type: unspecified type Qualified Code(s): D64.9 - Anemia, unspecified - Discharge Dispostion Condition at time of disposition: Guarded Decision to Admit order: Yes Decision to Admit order Date/Time: Decision to Admit Order Category Date Time Status Decision to Admit to Hospital Routine Admission 04/22/18 10:14 Active - Referrals Referrals: Mika Flaherty MD [Primary Care Provider] - - Patient Instructions - Post Discharge Activity
[2018-04-22 08:57] LABS: BASO % 2.8 % (0-2.0); EOS % 3.6 % (0-4.5); HEMATOCRIT 34.6 % (35.4-49); HEMOGLOBIN 11.5 GM/dL (11.7-16.9); LYMPH % 16.6 % (8-40); MCH 32.6 pg (25.7-33.7); MCHC 33.3 g/dl (32.0-35.9); MEAN CELL VOLUME 97.7 fl (80-96); MEAN PLT VOLUME 9.2 fl (7.5-11.1); MONO % 14.5 % (3.8-10.2); NEUT % 62.5 % (42.8-82.8); PLATELET COUNT 148 K/MM3 (134-434); RBC 3.54 M/mm3 (4.00-5.60); RDW 16.3 % (11.9-15.9); WHITE BLOOD COUNT 6.2 K/mm3 (4.0-10.0)
[2018-04-22 09:08] LABS: INR 1.2 (0.82-1.09); PROTHROMBIN TIME (PATIENT) 13.6 SEC (9.7-13.0)
[2018-04-22 09:15] LABS: CHLORIDE 104 mmol/L (98-107); POTASSIUM 4.4 mmol/L (3.5-5.1); SODIUM 142 mmol/L (136-145)
[2018-04-22 09:23] LABS: ALK PHOS 248 U/L (45-117); ANION GAP 8 (8-16); BILIRUBIN,TOTAL 0.5 mg/dL (0.2-1.0); BLOOD UREA NITROGEN 36 mg/dL (7-18); CALCIUM 7.9 mg/dL (8.5-10.1); CO2 30 mmol/L (21-32); CREATININE 1.4 mg/dL (0.7-1.3); GLUCOSE,RANDOM 54 mg/dL (74-106); MAGNESIUM 2.4 mg/dL (1.8-2.4); SGOT/AST 79 U/L (15-37); SGPT/ALT 74 U/L (12-78); TOT PROT 6.5 g/dl (6.4-8.2)
--- NOTE | 2018-04-22 09:37 | PDOC ---
Attending Attestation - Resident Resident Name: CleveStacy - ED Attending Attestation I have performed the following: I have examined & evaluated the patient, The case was reviewed & discussed with the resident, I agree w/resident's findings & plan - HPI HPI: 04/22/18 09:33 77-year-old male with cardiac history (CAD, CABG reportedly with last catheterization in April 2017 that was normal), chronic lymphedema presents with about 5 minute episode of chest pressure this morning associated with shortness of breath while he was changing the dressings on his legs. Symptom-free at this time, he and family have noted some increased work of breathing with minimal exertion over the last month or so. - Physicial Exam PE: 04/22/18 09:35 VS are within normal limits comfortable seated in stetcher speaking full sentences and drinking tea irreg irreg with normal rate abd soft b/l chronic lymphedema without evidence of superimposed infection - Medical Decision Making 04/22/18 09:36 77-year-old male with known cardiac history presents with chest pain episode this morning, now resolved. Concerning given the minimal exertion and worsening dyspnea of late. Less likely infectious. EKG is rate controlled atrial fibrillation without acute ischemia Labs, chest x-ray Received aspirin with EMS Admission for further cardiac evaluation 04/22/18 10:01 Cr 1.4, slightly elevated from baseline. trop negative. slightly elevated LFT possibly from congestion. proceed with admission Heart Score/ECG Review #1 General ECG Interpretation: Normal Rate (afib at 59), Normal Intervals ( inferior q waves), No acute ischemic changes Compared to previous ECG there are: No significant change
--- NOTE | 2018-04-22 11:10 | HP ---
Admitting History and Physical - Primary Care Physician PCP: Mika Flaherty - Admission Chief Complaint: chest pain ,SOB History of Present Illness: ER HISTORY - History of Present Illness Initial Comments: This is a 77 YOM with h/o CHF (takes lasix 40 mg daily), BLE lymphedema, IDDM, CAD s/p 4-vessel CABG, parietal meningioma resection in 2001, anxiety (takes alprazolam), A-fib (takes amiodarone and digoxin, taken of AC about a year ago) , HTN (takes cardevilol and valsartan), hypothyroidism (on levothyroxine), and tobacco use (smoker) who p/w midsternal non-radiating 5/10 chest discomfort onset about 7:30 am today while he was attempting to change the dressings on his legs. The discomfort lasted about 20 minutes and resolved with rest and without medications. EMS arrived on scene, found his vitals to be within normal limits, took a field EKG which showed no signs of acute ischemia, and gave him 324 mg ASA PO. The patient notes having drank about 50 oz water last night and has only urinated about 15 oz as of this morning. He also notes worsening swelling in both legs. He denies any new headache, dizziness, lightheadedness, SOB, cough, orthopnea, abdominal pain, back pain, burning/pain on urination, lesions on his legs, or other symptoms. He notes being adherent to his medication regimen. Pt examined by me in ER-- daughter at bedside Still has chest pressure , but decreased. Has been feeling sob and leg edema worsening for a month. Has frequent falls, not on anticoagulation due to this reason per pt and family.He does not want to take anticoagulation. Family deciding on having him live in assisted facility History Source: Patient, Family Member Limitations to Obtaining History: No Limitations - Past Medical History [employer]: Yes: Peripheral Neuropathy, Other (meningioma) Cardiovascular: Yes: AFIB, CAD (s/p CABG), CHF, HTN, Hyperlipdemia Psych: Yes: Anxiety Musculoskeletal: Yes: Chronic low back pain Endocrine: Yes: Diabetes Mellitus, Hypothyroidism Additional Past Medical History: h/o fractures to legs >5 years ago, had skin grafting on legs - Past Surgical History Past Surgical History: Yes: CABG - Smoking History Smoking history: Former smoker Have you smoked in the past 12 months: No If you are a former smoker, when did you quit?: 40YRS AGO - Alcohol/Substance Use Hx Alcohol Use: Yes (OCCAS) History of Substance Use: reports: None Home Medications - Allergies Allergies/Adverse Reactions: Allergies Allergy/AdvReac Type Severity Reaction Status Date / Time No Known Drug Allergies Allergy Verified 04/22/18 08:42 - Home Medications Home Medications: Ambulatory Orders Amiodarone HCl [Cordarone -] 300 mg PO DAILY 08/25/13 Ascorbic Acid [Vitamin C] 1,000 mg PO DAILY 08/25/13 Aspirin Coated [Ecotrin -] 81 mg PO DAILY 08/25/13 Atorvastatin Ca [Lipitor] 80 mg PO HS 08/25/13 Carvedilol [Coreg -] 6.25 mg PO BID 08/25/13 Dicloxacillin Sodium 500 mg PO TID 08/25/13 Digoxin [Lanoxin -] 0.125 mg PO DAILY 08/25/13 Flaxseed Oil 1,000 mg PO DAILY 08/25/13 Folic Acid 0.8 mg PO DAILY 08/25/13 Furosemide [Lasix -] 40 mg PO BID 08/25/13 Insulin Glargine,Hum.rec.anlog [Lantus (10mL VIAL) -] 20 units SQ HS 08/25/13 Magnesium 30 mg PO DAILY 08/25/13 Phenytoin Sodium Extended [Phenytek] 300 mg PO BID 08/25/13 Potassium Chloride [K-Tab] 10 meq PO DAILY 08/25/13 Pyridoxine HCl (B-6) [Vitamin B6 -] 50 mg PO DAILY 08/25/13 Zinc 50 mg PO DAILY 08/25/13 Insulin Lispro [Humalog] 0 unit SQ TID 08/26/13 Alprazolam [Xanax] 1 mg PO BID 07/06/17 Cyanocobalamin [Vitamin B12 -] 1,000 mcg PO DAILY 07/06/17 Docusate Sodium [Colace -] 100 mg PO BID 07/06/17 [place]-3 Fatty Acids [[place]-3] 1,000 mg PO DAILY 07/06/17 Ubidecarenone/Vit E Acet [Co Q-10 100 mg Softgel] 1 each PO DAILY 07/06/17 Ibuprofen [Motrin -] 600 mg PO Q6H PRN #30 tablet 07/10/17 Levothyroxine [Synthroid -] 200 mcg PO DAILY 04/22/18 Review of Systems - Review of Systems Constitutional: reports: Weakness. denies: Loss of Appetite Cardiovascular: reports: Chest Pain, Edema, Shortness of Breath. denies: Palpitations Respiratory: reports: SOB, SOB on Exertion Physical Examination Vital Signs: Vital Signs Temperature Pulse Rate 58 L 04/22/18 08:30 Respiratory Rate 18 04/22/18 08:30 Blood Pressure 107/94 04/22/18 08:30 O2 Sat by Pulse Oximetry (%) 97 04/22/18 08:52 Constitutional: Yes: No Distress Cardiovascular: Yes: Pulse Irregular Respiratory: Yes: Diminished, Rales Gastrointestinal: Yes: Normal Bowel Sounds, Soft. No: Distention, Tenderness Edema: Yes Edema: LLE: 2+, RLE: 2+ Labs: CBC, BMP 04/22/18 08:45 04/22/18 08:45 Imaging - Results Chest X-ray: Image Reviewed (congestive changes) EKG: Image Reviewed (Afib) Problem List - Problems (1) Atrial fibrillation Code(s): I48.91 - UNSPECIFIED ATRIAL FIBRILLATION Qualifiers: Atrial fibrillation type: persistent Qualified Code(s): I48.1 - Persistent atrial fibrillation (2) Chest pain Code(s): R07.9 - CHEST PAIN, UNSPECIFIED Qualifiers: Chest pain type: unspecified Qualified Code(s): R07.9 - Chest pain, unspecified (3) Congestive heart disease Code(s): I50.9 - HEART FAILURE, UNSPECIFIED Qualifiers: Heart failure type: combined systolic and diastolic Heart failure chronicity: acute on chronic Qualified Code(s): I50.43 - Acute on chronic combined systolic (congestive) and diastolic (congestive) heart failure (4) HTN (hypertension) Code(s): I10 - ESSENTIAL (PRIMARY) HYPERTENSION Qualifiers: Hypertension type: essential hypertension Qualified Code(s): I10 - Essential (primary) hypertension (5) Hypercholesterolemia Code(s): E78.00 - PURE HYPERCHOLESTEROLEMIA, UNSPECIFIED (6) Lymphedema Code(s): I89.0 - LYMPHEDEMA, NOT ELSEWHERE CLASSIFIED (7) S/P CABG (coronary artery bypass graft) Code(s): Z95.1 - PRESENCE OF AORTOCORONARY BYPASS GRAFT (8) Anxiety Code(s): F41.9 - ANXIETY DISORDER, UNSPECIFIED (9) Gait abnormality Code(s): R26.9 - UNSPECIFIED ABNORMALITIES OF GAIT AND MOBILITY (10) IDDM (insulin dependent diabetes mellitus) Code(s): E11.9 - TYPE 2 DIABETES MELLITUS WITHOUT COMPLICATIONS; Z79.4 - SNF (CURRENT) USE OF INSULIN Assessment/Plan PLAN CHEST PAIN CHF DECOMPENSATION --Check cardiac markers --On ASA --Pt has [facility] in [facility]-- would like to change doctors - see a specialist closer to home. --Not on AC due falls --Telemetry monitoring --Check Echo --rate is controlled -- check renal function -- on iv Lasix h/o Meningioma -- on Dilantin - seizure controlled per family Frequent falls -- PT eval
--- NOTE | 2018-04-22 15:00 | EKG ---
Test Reason : Blood Pressure : / mmHG Vent. Rate : 059 BPM Atrial Rate : 277 BPM P-R Int : 000 ms QRS Dur : 122 ms QT Int : 442 ms P-R-T Axes : 000 -63 060 degrees QTc Int : 437 ms ATRIAL FIBRILLATION WITH SLOW VENTRICULAR RESPONSE LEFT AXIS DEVIATION INFERIOR INFARCT (CITED ON OR BEFORE 23-JUL-2006) ABNORMAL ECG Confirmed by MD Muna, Chris ([id number]) on 04/22/2018 3:00:11 PM Referred By: Confirmed By:Chris Toro MD
[2018-04-22 15:03] LABS: URINE APPEARANCE SLCLOUDY; URINE BILIRUBIN NEGATIVE (<2.0 mg/dL); URINE COLOR YELLOW; URINE GLUCOSE (UA) NEGATIVE (NEGATIVE); URINE KETONE NEGATIVE (NEGATIVE); URINE NITRITE NEGATIVE (NEGATIVE); URINE UROBILINOGEN NEGATIVE mg/dL (0.2-1.0)
[2018-04-22 15:04] LABS: URINE LEUK ESTERASE 3+ (NEGATIVE); URINE PROTEIN 2+ (NEGATIVE)
[2018-04-22 15:07] LABS: TRIPLE PHOSPHATE CRYSTAL RARE /hpf (NONE SEEN); URINE HYALINE CAST 13 /lpf; URINE MUCUS RARE
[2018-04-22] MEDS: INSULIN SLIDING SCALE (NOVOLOG) 1 VIAL SQ SCH ×2 (17:29→22:19)
--- NOTE | 2018-04-22 20:10 | CON.CARD ---
Consult Consult Specialty:: Cardiology Referred by:: Dr. Ange Romano Reason for Consultation:: Cardiac evaluation - History of Present Illness Chief Complaint: Chest pain and shortness of breath History of Present Illness: Patient is a 77 year old male with underlying history of CAD s/p CABG (followed at [facility], competitive intelligence manager: Maldonado Shaw MD last seen in January of this year), paroxysmal atrial fibrillation currently not taking anticoagulation (previously had taken Warfarin about a year ago), HTN, hypercholesterolemia and hypothyroidism. He also has meningioma which was resected by Dr. Anthony Sorto, but now has another small meningioma. He was admitted today with mid sternal non radiating chest discomfort which started early this morning. He also complains of bilateral pedal edema. Pain resolved, but EMS was called and he was brought in for further evaluation. He was given chewable ASA. Currently, he denies shortness of breath or palpitations. He denies paroxysmal nocturnal dyspnea or orthopnea. He denies nausea, vomiting, diarrhea or abdominal pain. He denies fever or chills. He denies headache or lightheadedness. He denies cough or expectoration. He has a tendency to fall with unsteady gait. 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: Yes: Peripheral Neuropathy Cardio/Vascular: Yes: AFIB, CAD, HTN, Hyperlipdemia Psych: Yes: Anxiety Musculoskeletal: Yes: Chronic low back pain - Past Surgical History Past Surgical History: Yes: CABG Additional Surgical History: Meningioma resection - Alcohol/Substance Use Hx Alcohol Use: Yes (OCCAS) History of Substance Use: reports: None - Smoking History Smoking history: Former smoker Have you smoked in the past 12 months: No If you are a former smoker, when did you quit?: 40YRS AGO Home Medications - Allergies Allergies/Adverse Reactions: Allergies Allergy/AdvReac Type Severity Reaction Status Date / Time No Known Drug Allergies Allergy Verified 04/22/18 08:42 - Home Medications Home Medications: Ambulatory Orders Amiodarone HCl [Cordarone -] 300 mg PO DAILY 08/25/13 Ascorbic Acid [Vitamin C] 1,000 mg PO DAILY 08/25/13 Aspirin Coated [Ecotrin -] 81 mg PO DAILY 08/25/13 Atorvastatin Ca [Lipitor] 80 mg PO HS 08/25/13 Carvedilol [Coreg -] 6.25 mg PO BID 08/25/13 Dicloxacillin Sodium 500 mg PO TID 08/25/13 Digoxin [Lanoxin -] 0.125 mg PO DAILY 08/25/13 Flaxseed Oil 1,000 mg PO DAILY 08/25/13 Folic Acid 0.8 mg PO DAILY 08/25/13 Furosemide [Lasix -] 40 mg PO BID 08/25/13 Insulin Glargine,Hum.rec.anlog [Lantus (10mL VIAL) -] 20 units SQ HS 08/25/13 Magnesium 30 mg PO DAILY 08/25/13 Phenytoin Sodium Extended [Phenytek] 300 mg PO BID 08/25/13 Potassium Chloride [K-Tab] 10 meq PO DAILY 08/25/13 Pyridoxine HCl (B-6) [Vitamin B6 -] 50 mg PO DAILY 08/25/13 Zinc 50 mg PO DAILY 08/25/13 Insulin Lispro [Humalog] 0 unit SQ TID 08/26/13 Alprazolam [Xanax] 1 mg PO BID 07/06/17 Cyanocobalamin [Vitamin B12 -] 1,000 mcg PO DAILY 07/06/17 Docusate Sodium [Colace -] 100 mg PO DAILY 07/06/17 Latimer-3 Fatty Acids [Latimer-3] 1,000 mg PO DAILY 07/06/17 Ubidecarenone/Vit E Acet [Co Q-10 100 mg Softgel] 1 each PO DAILY 07/06/17 Ibuprofen [Motrin -] 600 mg PO Q6H PRN #30 tablet 07/10/17 Levothyroxine [Synthroid -] 200 mcg PO DAILY 04/22/18 Review of Systems - Review of Systems Constitutional: denies: Chills, Fever Cardiovascular: reports: Chest Pain, Shortness of Breath. denies: Palpitations Respiratory: reports: SOB, SOB on Exertion. denies: Cough, Hemoptysis, Orthopnea, PND Gastrointestinal: denies: Abdominal Pain, Constipation, Diarrhea, Melena, Nausea , Rectal Bleeding, Vomiting Musculoskeletal: reports: Joint Pain. denies: Back Pain Neurological: reports: Unsteady Gait, Weakness. denies: Dizziness, Headache, Seizure, Syncope Vital Signs: Vital Signs Temperature 98.0 F 04/22/18 19:39 Pulse Rate 58 L 04/22/18 19:39 Respiratory Rate 20 04/22/18 19:39 Blood Pressure 110/75 04/22/18 19:39 O2 Sat by Pulse Oximetry (%) 98 04/22/18 19:39 HENT: Yes: Atraumatic Neck: Yes: Supple Respiratory: Yes: CTA Bilaterally Gastrointestinal: Yes: Normal Bowel Sounds, Soft. No: Tenderness Cardiovascular: Yes: Regular Rate and Rhythm, Bradycardia JVD: No Carotid Bruit: No PMI: Non-Displaced Heart Sounds: Yes: S1, S2. No: Gallop Murmur: Yes: Systolic Murmur, Grade 1 Edema: Yes - Other Data Labs, Other Data: CBC, BMP 04/22/18 08:45 04/22/18 08:45 INR, PTT INR 1.20 (0.82-1.09) H 04/22/18 08:45 Troponin, BNP 04/22/18 04/22/18 04/22/18 08:45 08:45 15:35 Troponin I 0.03 0.03 B-Natriuretic Peptide 2743.46 H Laboratory Results - last 24 hr 04/22/18 04/22/18 04/22/18 08:45 08:45 08:45 WBC 6.2 RBC 3.54 L Hgb 11.5 L D Hct 34.6 L MCV 97.7 H MCH 32.6 MCHC 33.3 RDW 16.3 H Plt Count 148 MPV 9.2 Absolute Neuts (auto) 3.9 Neutrophils % 62.5 Lymphocytes % 16.6 Monocytes % 14.5 H Eosinophils % 3.6 Basophils % 2.8 H D Nucleated RBC % 0 PT with INR 13.60 H INR 1.20 H PTT (Actin FS) Sodium 142 Potassium 4.4 Chloride 104 Carbon Dioxide 30 Anion Gap 8 BUN 36 H D Creatinine 1.4 H D Creat Clearance w eGFR 49.14 POC Glucometer Random Glucose 54 L D Calcium 7.9 L Magnesium 2.4 Total Bilirubin 0.5 AST 79 H D ALT 74 D Alkaline Phosphatase 248 H D Creatine Kinase 313 H Creatine Kinase Index 0.8 CK-MB (CK-2) 2.80 Troponin I 0.03 B-Natriuretic Peptide Total Protein 6.5 Albumin 3.0 L Urine Color Urine Appearance Urine pH Ur Specific [place] Urine Protein Urine Glucose (UA) Urine Ketones Urine Blood Urine Nitrite Urine Bilirubin Urine Urobilinogen Ur Leukocyte Esterase Urine WBC (Auto) Urine RBC (Auto) Triple Phos Crystals Hyaline Casts Urine Mucus Digoxin 1.10 Phenytoin Blood Type Antibody Screen 04/22/18 04/22/18 04/22/18 11:25 12:09 14:52 WBC RBC Hgb Hct MCV MCH MCHC RDW Plt Count MPV Absolute Neuts (auto) Neutrophils % Lymphocytes % Monocytes % Eosinophils % Basophils % Nucleated RBC % PT with INR INR PTT (Actin FS) Sodium Potassium Chloride Carbon Dioxide Anion Gap BUN Creatinine Creat Clearance w eGFR POC Glucometer [id number] Random Glucose Calcium Magnesium Total Bilirubin AST ALT Alkaline Phosphatase Creatine Kinase Creatine Kinase Index CK-MB (CK-2) Troponin I B-Natriuretic Peptide Total Protein Albumin Urine Color Yellow Urine Appearance Slcloudy Urine pH 8.0 D Ur Specific [place] 1.019 Urine Protein 2+ H Urine Glucose (UA) Negative Urine Ketones Negative Urine Blood Negative Urine Nitrite Negative Urine Bilirubin Negative Urine Urobilinogen Negative Ur Leukocyte Esterase 3+ H Urine WBC (Auto) 36 Urine RBC (Auto) 2 Triple Phos Crystals Rare Hyaline Casts 13 Urine Mucus Rare Digoxin Phenytoin 24.6 H Blood Type Antibody Screen 04/22/18 15:35 WBC RBC Hgb Hct MCV MCH MCHC RDW Plt Count MPV Absolute Neuts (auto) Neutrophils % Lymphocytes % Monocytes % Eosinophils % Basophils % Nucleated RBC % PT with INR INR PTT (Actin FS) Sodium Potassium Chloride Carbon Dioxide Anion Gap BUN Creatinine Creat Clearance w eGFR POC Glucometer Random Glucose Calcium Magnesium Total Bilirubin AST ALT Alkaline Phosphatase Creatine Kinase 253 Creatine Kinase Index 0.9 CK-MB (CK-2) 2.31 Troponin I 0.03 B-Natriuretic Peptide Total Protein Albumin Urine Color Urine Appearance Urine pH Ur Specific [place] Urine Protein Urine Glucose (UA) Urine Ketones Urine Blood Urine Nitrite Urine Bilirubin Urine Urobilinogen Ur Leukocyte Esterase Urine WBC (Auto) Urine RBC (Auto) Triple Phos Crystals Hyaline Casts Urine Mucus Digoxin Phenytoin Blood Type Antibody Screen Atrial fibrillation, possible inferior infarct Imaging - Results Chest X-ray: Report Reviewed (Large heart, increased marking) EKG: Report Reviewed Problem List - Problems (1) HTN (hypertension) Code(s): I10 - ESSENTIAL (PRIMARY) HYPERTENSION Qualifiers: Hypertension type: essential hypertension Qualified Code(s): I10 - Essential (primary) hypertension (2) Hypercholesterolemia Code(s): E78.00 - PURE HYPERCHOLESTEROLEMIA, UNSPECIFIED (3) Atrial fibrillation Code(s): I48.91 - UNSPECIFIED ATRIAL FIBRILLATION Qualifiers: Atrial fibrillation type: paroxysmal Qualified Code(s): I48.0 - Paroxysmal atrial fibrillation (4) Anemia Code(s): D64.9 - ANEMIA, UNSPECIFIED Qualifiers: Anemia type: unspecified type Qualified Code(s): D64.9 - Anemia, unspecified (5) Chest pain Code(s): R07.9 - CHEST PAIN, UNSPECIFIED Qualifiers: Chest pain type: unspecified Qualified Code(s): R07.9 - Chest pain, unspecified (6) Congestive heart disease Code(s): I50.9 - HEART FAILURE, UNSPECIFIED Qualifiers: Heart failure type: unspecified Heart failure chronicity: unspecified Qualified Code(s): I50.9 - Heart failure, unspecified (7) Hypoglycemia Code(s): E16.2 - HYPOGLYCEMIA, UNSPECIFIED (8) Anxiety Code(s): F41.9 - ANXIETY DISORDER, UNSPECIFIED (9) CAD (coronary artery disease) Code(s): I25.10 - ATHSCL HEART DISEASE OF [place] CORONARY ARTERY W/O ANG PCTRS Qualifiers: Coronary Disease-Associated Artery/Lesion type: bypass graft [place] vs. 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 CAD s/p CABG, angina pectoris 2. Chest pain syndrome, etiology to be determined 3. HTN 4. Hypercholesterolemia 5. Paroxysmal atrial fibrillation [id number] score of 3+ 6. Unsteady gait PLAN: 1. Ideally patient needs to be an anticoagulation in view of stroke risk, possibly NOAC instead of Warfarin may be recommended Start Eliquis 5 mg BID if not contraindicated 2. Continue Carvedilol 3. Continue Amiodarone. Consider stopping Digoxin 4. Continue Lipitor 5. Consider echocardiography to assess LV/RV and valvular function 6. Compare records from [place] 7. Fall precaution and eventually family wants him to be at assisted living facility Further plans are to follow David Galaviz MD
[2018-04-22] MEDS: PHENYTOIN NA EXTENDED 100 MG CAPSULE (FP) PO SCH (22:02)
[2018-04-22] MEDS: APIXABAN 5 MG TABLET PO SCH (22:17)
[2018-04-22] MEDS: CARVEDILOL 6.25 MG TABLET (FP) PO SCH (22:17)
[2018-04-22] MEDS: ATORVASTATIN CA 80 MG TABLET (FP) PO SCH (22:17)
[2018-04-22] MEDS: ALPRAZolam 2 MG TABLET PO PRN (22:44)
[2018-04-23] MEDS ORDERED: oxyCODONE HCL 5 MG TABLET PO ONE (06:02)
[2018-04-23] MEDS: INSULIN SLIDING SCALE (NOVOLOG) 1 VIAL SQ SCH ×4 (06:11→21:39)
[2018-04-23] MEDS ORDERED: LEVOTHYROXINE NA 100 MCG TABLET (FP) PO SCH ×2 (07:00→11:19)
[2018-04-23] MEDS: APIXABAN 5 MG TABLET PO SCH ×2 (09:12→21:39)
[2018-04-23] MEDS: ASPIRIN COATED 81 MG TABLET.EC PO SCH (09:12)
[2018-04-23] MEDS: FUROSEMIDE 40 MG/4 ML INJECTABLE VIAL IVPUSH SCH (09:12)
[2018-04-23] MEDS: PHENYTOIN NA EXTENDED 100 MG CAPSULE (FP) PO SCH ×2 (09:12→21:39)
[2018-04-23] MEDS: AMIODARONE HCL 200 MG TABLET (FP) PO SCH (09:12)
[2018-04-23] MEDS: DOCUSATE SODIUM 100 MG CAPSULE (FP) PO SCH (09:12)
[2018-04-23] MEDS: CARVEDILOL 6.25 MG TABLET (FP) PO SCH ×2 (09:12→21:38)
--- NOTE | 2018-04-23 09:23 | PN ---
Progress Note, Physician History of Present Illness: No further chest pain, dyspnea, now complains of chronic bilateral LE edema and heaviness. - Current Medication List Current Medications: Active Medications Alprazolam (Xanax -) 1 mg PO BID PRN PRN Reason: ANXIETY Last Admin: 04/22/18 22:44 Dose: 1 mg Amiodarone HCl (Cordarone -) 200 mg PO DAILY [facility] Last Admin: 04/23/18 09:12 Dose: 200 mg Apixaban (Eliquis -) 5 mg PO BID [facility] Last Admin: 04/23/18 09:12 Dose: 5 mg Aspirin (Ecotrin -) 81 mg PO DAILY [facility] Last Admin: 04/23/18 09:12 Dose: 81 mg Atorvastatin Calcium (Lipitor -) 80 mg PO HS [facility] Last Admin: 04/22/18 22:17 Dose: 80 mg Carvedilol (Coreg -) 6.25 mg PO BID [facility] Last Admin: 04/23/18 09:12 Dose: 6.25 mg Docusate Sodium (Colace -) 100 mg PO DAILY [facility] Last Admin: 04/23/18 09:12 Dose: 100 mg Furosemide (Lasix Injection -) 40 mg IVPUSH DAILY [facility] Last Admin: 04/23/18 09:12 Dose: 40 mg Insulin Aspart (Novolog Vial Sliding Scale -) 0 vial SQ [facility]; Protocol Last Admin: 04/23/18 06:11 Dose: Not Given Levothyroxine Sodium (Synthroid -) 200 mcg PO DAILY@0700 [facility] Last Admin: 04/23/18 06:14 Dose: 200 mcg Phenytoin Sodium (Dilantin -) 300 mg PO BID [facility] Last Admin: 04/23/18 09:12 Dose: 300 mg - Objective Vital Signs: Vital Signs Temperature 97.4 F L 04/23/18 05:00 Pulse Rate 60 04/23/18 05:00 Respiratory Rate 18 04/23/18 05:00 Blood Pressure 125/73 04/23/18 05:00 O2 Sat by Pulse Oximetry (%) 96 04/22/18 20:30 Constitutional: Yes: No Distress, Calm Neck: Yes: Supple Cardiovascular: Yes: Pulse Irregular, Murmur (2/6 SM) Respiratory: Yes: Regular, Diminished Gastrointestinal: Yes: Normal Bowel Sounds, Soft Edema: Yes Edema: LLE: 2+, RLE: 2+ Labs: CBC, BMP 04/22/18 08:45 04/22/18 08:45 INR, PTT INR 1.20 (0.82-1.09) H 04/22/18 08:45 - ....Imaging EKG: Report Reviewed (Tele: Rate-controllede afib) Problem List - Problems (1) S/P CABG (coronary artery bypass graft) Code(s): Z95.1 - PRESENCE OF AORTOCORONARY BYPASS GRAFT (2) Lymphedema Code(s): I89.0 - LYMPHEDEMA, NOT ELSEWHERE CLASSIFIED (3) TRUDY (acute kidney injury) Code(s): N17.9 - ACUTE KIDNEY FAILURE, UNSPECIFIED (4) Atrial fibrillation Code(s): I48.91 - UNSPECIFIED ATRIAL FIBRILLATION Qualifiers: Atrial fibrillation type: persistent Qualified Code(s): I48.1 - Persistent atrial fibrillation (5) Chest pain Code(s): R07.9 - CHEST PAIN, UNSPECIFIED Qualifiers: Chest pain type: unspecified Qualified Code(s): R07.9 - Chest pain, unspecified (6) Congestive heart disease Code(s): I50.9 - HEART FAILURE, UNSPECIFIED Qualifiers: Heart failure type: combined systolic and diastolic Heart failure chronicity: acute on chronic Qualified Code(s): I50.43 - Acute on chronic combined systolic (congestive) and diastolic (congestive) heart failure (7) HTN (hypertension) Code(s): I10 - ESSENTIAL (PRIMARY) HYPERTENSION Qualifiers: Hypertension type: essential hypertension Qualified Code(s): I10 - Essential (primary) hypertension (8) Hypercholesterolemia Code(s): E78.00 - PURE HYPERCHOLESTEROLEMIA, UNSPECIFIED (9) CAD (coronary artery disease) Code(s): I25.10 - ATHSCL HEART DISEASE OF [place] CORONARY ARTERY W/O ANG PCTRS Qualifiers: Coronary Disease-Associated Artery/Lesion type: bypass graft [place] vs. transplanted heart: [place] heart Associated angina: angina presence unspecified Qualified Code(s): I25.810 - Atherosclerosis of coronary artery bypass graft(s) without angina pectoris (10) IDDM (insulin dependent diabetes mellitus) Code(s): E11.9 - TYPE 2 DIABETES MELLITUS WITHOUT COMPLICATIONS; Z79.4 - PRISON (CURRENT) USE OF INSULIN Assessment/Plan 04/22/2018 Mildly dilated and mod decreased LV fxn, mild RV dilated with mild decrease RV fxn, mod LAE, mod MR, mild-mod TR with mod-severe pulm HTN RVSP 50, mild AR 1. CAD s/p CABG, angina pectoris 2. 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 Chest pain syndrome, ruled out for CA 4. HTN 5. Hypercholesterolemia 6. Paroxysmal atrial fibrillation [id number] score of 3+ 7. Hypothyroidism 8. Seizure d/o 9. Microalbuminuria 10. Anemia 11. Chronic bilateral lymphedema -> Unsteady gait PLAN: 1. IV diuresis with monitor diuretic response, renal function and electrolytes 2. Continue Eliquis 5 mg BID given elevated stroke risk 3. Continue Carvedilol 6.25 bid and add [place] 40 qd once renal fxn stable with uptitration as tolerated 3. Continue Amiodarone 200 qd 4. Continue Lipitor 80 qhs 5. Compression therapy, vascular input, fall precaution, PT for gait training and eventually family wants him to be at assisted living facility 6. Obtain records from Dr. Maldonado Shaw of [facility] office
[2018-04-23] MEDS ORDERED: AMIODARONE HCL 200 MG TABLET (FP) PO SCH (10:00)
[2018-04-23] MEDS ORDERED: DIGOXIN 0.125 MG TABLET (FP) PO SCH (10:00)
--- NOTE | 2018-04-23 11:19 | PN ---
Progress Note, Physician Chief Complaint: sister at bedside pt still feels SOB no chest pain - Current Medication List Current Medications: Active Medications Alprazolam (Xanax -) 1 mg PO BID PRN PRN Reason: ANXIETY Last Admin: 04/22/18 22:44 Dose: 1 mg Amiodarone HCl (Cordarone -) 200 mg PO DAILY [facility] Last Admin: 04/23/18 09:12 Dose: 200 mg Apixaban (Eliquis -) 5 mg PO BID [facility] Last Admin: 04/23/18 09:12 Dose: 5 mg Aspirin (Ecotrin -) 81 mg PO DAILY [facility] Last Admin: 04/23/18 09:12 Dose: 81 mg Atorvastatin Calcium (Lipitor -) 80 mg PO HS [facility] Last Admin: 04/22/18 22:17 Dose: 80 mg Carvedilol (Coreg -) 6.25 mg PO BID [facility] Last Admin: 04/23/18 09:12 Dose: 6.25 mg Docusate Sodium (Colace -) 100 mg PO DAILY [facility] Last Admin: 04/23/18 09:12 Dose: 100 mg Furosemide (Lasix Injection -) 40 mg IVPUSH DAILY [facility] Last Admin: 04/23/18 09:12 Dose: 40 mg Insulin Aspart (Novolog Vial Sliding Scale -) 0 vial SQ ACHS [facility]; Protocol Last Admin: 04/23/18 06:11 Dose: Not Given Levothyroxine Sodium (Synthroid -) 200 mcg PO DAILY@0700 [facility] Last Admin: 04/23/18 06:14 Dose: 200 mcg Phenytoin Sodium (Dilantin -) 300 mg PO BID [facility] Last Admin: 04/23/18 09:12 Dose: 300 mg - Objective Vital Signs: Vital Signs Temperature 97.4 F L 04/23/18 05:00 Pulse Rate 60 04/23/18 05:00 Respiratory Rate 18 04/23/18 05:00 Blood Pressure 125/73 04/23/18 05:00 O2 Sat by Pulse Oximetry (%) 96 04/22/18 20:30 Constitutional: Yes: No Distress Cardiovascular: Yes: Pulse Irregular Respiratory: Yes: Diminished Gastrointestinal: Yes: Normal Bowel Sounds, Soft, Abdomen, Obese. No: Tenderness Edema: Yes Edema: LLE: 2+, RLE: 2+ Psychiatric: Yes: Alert, Oriented Labs: CBC, BMP 04/22/18 08:45 04/22/18 08:45 INR, PTT INR 1.20 (0.82-1.09) H 04/22/18 08:45 Problem List - Problems (1) Hypothyroidism Code(s): E03.9 - HYPOTHYROIDISM, UNSPECIFIED (2) TRUDY (acute kidney injury) Code(s): N17.9 - ACUTE KIDNEY FAILURE, UNSPECIFIED (3) Atrial fibrillation Code(s): I48.91 - UNSPECIFIED ATRIAL FIBRILLATION Qualifiers: Atrial fibrillation type: persistent Qualified Code(s): I48.1 - Persistent atrial fibrillation (4) Chest pain Code(s): R07.9 - CHEST PAIN, UNSPECIFIED Qualifiers: Chest pain type: unspecified Qualified Code(s): R07.9 - Chest pain, unspecified (5) Congestive heart disease Code(s): I50.9 - HEART FAILURE, UNSPECIFIED Qualifiers: Heart failure type: combined systolic and diastolic Heart failure chronicity: acute on chronic Qualified Code(s): I50.43 - Acute on chronic combined systolic (congestive) and diastolic (congestive) heart failure (6) HTN (hypertension) Code(s): I10 - ESSENTIAL (PRIMARY) HYPERTENSION Qualifiers: Hypertension type: essential hypertension Qualified Code(s): I10 - Essential (primary) hypertension (7) Hypercholesterolemia Code(s): E78.00 - PURE HYPERCHOLESTEROLEMIA, UNSPECIFIED (8) S/P CABG (coronary artery bypass graft) Code(s): Z95.1 - PRESENCE OF AORTOCORONARY BYPASS GRAFT (9) CAD (coronary artery disease) Code(s): I25.10 - ATHSCL HEART DISEASE OF [place] CORONARY ARTERY W/O ANG PCTRS Qualifiers: Coronary Disease-Associated Artery/Lesion type: bypass graft [place] vs. 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
[2018-04-23] MEDS: DICLOXACILLIN SODIUM 250 MG CAPSULE PO SCH ×2 (15:47→21:39)
[2018-04-23] MEDS ORDERED: PT OWN MED DRAWER 7, Y5N ONE (21:11)
[2018-04-23] MEDS: ATORVASTATIN CA 80 MG TABLET (FP) PO SCH (21:38)
[2018-04-24] MEDS: ALPRAZolam 2 MG TABLET PO PRN ×3 (00:35→22:12)
[2018-04-24] MEDS ORDERED: LEVOTHYROXINE NA 125 MCG TABLET (FP) ONE (06:24)
[2018-04-24] MEDS ORDERED: LEVOTHYROXINE NA 100 MCG TABLET (FP) ONE (06:25)
[2018-04-24] MEDS: INSULIN SLIDING SCALE (NOVOLOG) 1 VIAL SQ SCH ×4 (06:26→22:12)
[2018-04-24] MEDS: LEVOTHYROXINE 125 MCG, LEVOTHYROXINE 100 MCG PO SCH (06:38)
[2018-04-24] MEDS: DICLOXACILLIN SODIUM 250 MG CAPSULE PO SCH ×3 (06:39→22:11)
[2018-04-24] MEDS ORDERED: PT OWN MED DRAWER 7, Y5N ONE ×2 (06:42→21:29)
[2018-04-24] MEDS ORDERED: LEVOTHYROXINE 25 MCG, LEVOTHYROXINE 200 MCG PO SCH (07:00)
[2018-04-24 07:59] LABS: ANION GAP 5 (8-16); BLOOD UREA NITROGEN 29 mg/dL (7-18); CALCIUM 7.7 mg/dL (8.5-10.1); CHLORIDE 103 mmol/L (98-107); CO2 32 mmol/L (21-32); GLUCOSE,RANDOM 114 mg/dL (74-106); POTASSIUM 4.2 mmol/L (3.5-5.1); SODIUM 140 mmol/L (136-145)
[2018-04-24 08:00] LABS: CREATININE 1.1 mg/dL (0.7-1.3)
--- NOTE | 2018-04-24 09:18 | PN ---
Progress Note, Physician History of Present Illness: No further chest pain, dyspnea, now complains of chronic bilateral LE edema and heaviness. - Current Medication List Current Medications: Active Medications Alprazolam (Xanax -) 1 mg PO BID PRN PRN Reason: ANXIETY Last Admin: 04/24/18 00:35 Dose: 1 mg Amiodarone HCl (Cordarone -) 200 mg PO DAILY [facility] Last Admin: 04/23/18 09:12 Dose: 200 mg Apixaban (Eliquis -) 5 mg PO BID [facility] Last Admin: 04/23/18 21:39 Dose: Not Given Aspirin (Ecotrin -) 81 mg PO DAILY [facility] Last Admin: 04/23/18 09:12 Dose: 81 mg Atorvastatin Calcium (Lipitor -) 80 mg PO HS [facility] Last Admin: 04/23/18 21:38 Dose: 80 mg Carvedilol (Coreg -) 6.25 mg PO BID [facility] Last Admin: 04/23/18 21:38 Dose: 6.25 mg Dicloxacillin Sodium (Dynapen -) 500 mg PO TID [facility] Last Admin: 04/24/18 06:39 Dose: 500 mg Docusate Sodium (Colace -) 100 mg PO DAILY [facility] Last Admin: 04/23/18 09:12 Dose: 100 mg Furosemide (Lasix Injection -) 40 mg IVPUSH DAILY [facility] Last Admin: 04/23/18 09:12 Dose: 40 mg Insulin Aspart (Novolog Vial Sliding Scale -) 0 vial SQ ACHS [facility]; Protocol Last Admin: 04/24/18 06:26 Dose: Not Given Levothyroxine Sodium 125 mcg/ (Levothyroxine Sodium 100 mcg) 225 mcg PO DAILY@ 0700 [facility] Last Admin: 04/24/18 06:38 Dose: 225 mcg Phenytoin Sodium (Dilantin -) 300 mg PO BID [facility] Last Admin: 04/23/18 21:39 Dose: 300 mg - Objective Vital Signs: Vital Signs Temperature 98.2 F 04/24/18 06:00 Pulse Rate 61 04/24/18 06:00 Respiratory Rate 20 04/24/18 06:00 Blood Pressure 120/63 04/24/18 06:00 O2 Sat by Pulse Oximetry (%) 100 04/23/18 21:00 Constitutional: Yes: No Distress, Calm Neck: Yes: Supple Cardiovascular: Yes: Regular Rate and Rhythm Respiratory: Yes: Regular, Diminished Gastrointestinal: Yes: Normal Bowel Sounds, Soft Edema: Yes Edema: LLE: 2+, RLE: 2+ Labs: CBC, BMP 04/22/18 08:45 04/24/18 06:20 INR, PTT INR 1.20 (0.82-1.09) H 04/22/18 08:45 Problem List - Problems (1) S/P CABG (coronary artery bypass graft) Code(s): Z95.1 - PRESENCE OF AORTOCORONARY BYPASS GRAFT (2) Lymphedema Code(s): I89.0 - LYMPHEDEMA, NOT ELSEWHERE CLASSIFIED (3) TRUDY (acute kidney injury) Code(s): N17.9 - ACUTE KIDNEY FAILURE, UNSPECIFIED (4) Atrial fibrillation Code(s): I48.91 - UNSPECIFIED ATRIAL FIBRILLATION Qualifiers: Atrial fibrillation type: persistent Qualified Code(s): I48.1 - Persistent atrial fibrillation (5) Chest pain Code(s): R07.9 - CHEST PAIN, UNSPECIFIED Qualifiers: Chest pain type: unspecified Qualified Code(s): R07.9 - Chest pain, unspecified (6) Congestive heart disease Code(s): I50.9 - HEART FAILURE, UNSPECIFIED Qualifiers: Heart failure type: combined systolic and diastolic Heart failure chronicity: acute on chronic Qualified Code(s): I50.43 - Acute on chronic combined systolic (congestive) and diastolic (congestive) heart failure (7) HTN (hypertension) Code(s): I10 - ESSENTIAL (PRIMARY) HYPERTENSION Qualifiers: Hypertension type: essential hypertension Qualified Code(s): I10 - Essential (primary) hypertension (8) Hypercholesterolemia Code(s): E78.00 - PURE HYPERCHOLESTEROLEMIA, UNSPECIFIED (9) CAD (coronary artery disease) Code(s): I25.10 - ATHSCL HEART DISEASE OF [place] CORONARY ARTERY W/O ANG PCTRS Qualifiers: Coronary Disease-Associated Artery/Lesion type: bypass graft [place] vs. transplanted heart: [place] heart Associated angina: angina presence unspecified Qualified Code(s): I25.810 - Atherosclerosis of coronary artery bypass graft(s) without angina pectoris (10) IDDM (insulin dependent diabetes mellitus) Code(s): E11.9 - TYPE 2 DIABETES MELLITUS WITHOUT COMPLICATIONS; Z79.4 - FDC (CURRENT) USE OF INSULIN Assessment/Plan 04/22/2018 Mildly dilated and mod decreased LV fxn, mild RV dilated with mild decrease RV fxn, mod LAE, mod MR, mild-mod TR with mod-severe pulm HTN RVSP 50, mild AR 03/25/2017 Moderate LV dilatation with moderate decreased LVEF 41%, normal RV size and fxn, mod MR, mild TR, mild-mod pulm HTN 03/25/2017 Adenosine Myoview: Mild-moderate inferoseptal ischemia, moderate inferior and severe posterior scarring, mod dilated with moderate decreased LVEF 37% 1. CAD s/p CABG, angina pectoris 2. 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 Chest pain syndrome, ruled out for [place] 4. HTN 5. Hypercholesterolemia 6. Paroxysmal atrial fibrillation h/o DCCV [id number] score of 3+ 7. Hypothyroidism 8. Seizure d/o 9. Microalbuminuria, TRUDY resolved 10. Anemia 11. Chronic bilateral lymphedema -> Unsteady gait PLAN: 1. IV diuresis with monitor diuretic response, renal function and electrolytes 2. Patient declines Eliquis 5 mg BID despite review of risks and benefits, will continue ASA 81 qd 3. Continue Carvedilol 6.25 bid and add Diovan 40 qd as renal fxn stable with uptitration as tolerated 3. Continue Amiodarone 200 qd 4. Continue Lipitor 80 qhs 5. Compression therapy, empiric abx and wound care, vascular input, fall precaution, PT for gait training and eventually family wants him to be at assisted living facility 6. Records from Dr. Maldonado Shaw of [facility] has been reviewed
[2018-04-24] MEDS: DOCUSATE SODIUM 100 MG CAPSULE (FP) PO SCH ×2 (09:21→22:11)
[2018-04-24] MEDS: CARVEDILOL 6.25 MG TABLET (FP) PO SCH ×2 (09:21→22:11)
[2018-04-24] MEDS: ASPIRIN COATED 81 MG TABLET.EC PO SCH (09:21)
[2018-04-24] MEDS: AMIODARONE HCL 200 MG TABLET (FP) PO SCH (09:21)
[2018-04-24] MEDS: APIXABAN 5 MG TABLET PO SCH ×3 (09:22→22:15)
[2018-04-24] MEDS: PHENYTOIN NA EXTENDED 100 MG CAPSULE (FP) PO SCH ×2 (09:22→22:11)
[2018-04-24] MEDS: FUROSEMIDE 40 MG/4 ML INJECTABLE VIAL IVPUSH SCH (09:22)
[2018-04-24] MEDS: VALSARTAN 40 MG TABLET (FP) PO SCH (10:12)
--- NOTE | 2018-04-24 11:17 | PN ---
Progress Note, Physician Chief Complaint: feeling better legs do not feel heavy no chest pain - Current Medication List Current Medications: Active Medications Alprazolam (Xanax -) 1 mg PO BID PRN PRN Reason: ANXIETY Last Admin: 04/24/18 09:48 Dose: 1 mg Amiodarone HCl (Cordarone -) 200 mg PO DAILY [facility] Last Admin: 04/24/18 09:21 Dose: 200 mg Apixaban (Eliquis -) 5 mg PO BID [facility] Last Admin: 04/24/18 09:22 Dose: 5 mg Aspirin (Ecotrin -) 81 mg PO DAILY [facility] Last Admin: 04/24/18 09:21 Dose: 81 mg Atorvastatin Calcium (Lipitor -) 80 mg PO HS [facility] Last Admin: 04/23/18 21:38 Dose: 80 mg Carvedilol (Coreg -) 6.25 mg PO BID [facility] Last Admin: 04/24/18 09:21 Dose: 6.25 mg Dicloxacillin Sodium (Dynapen -) 500 mg PO TID [facility] Last Admin: 04/24/18 06:39 Dose: 500 mg Docusate Sodium (Colace -) 100 mg PO DAILY [facility] Last Admin: 04/24/18 09:21 Dose: 100 mg Furosemide (Lasix Injection -) 40 mg IVPUSH DAILY [facility] Last Admin: 04/24/18 09:22 Dose: 40 mg Insulin Aspart (Novolog Vial Sliding Scale -) 0 vial SQ ACHS [facility]; Protocol Last Admin: 04/24/18 06:26 Dose: Not Given Levothyroxine Sodium 125 mcg/ (Levothyroxine Sodium 100 mcg) 225 mcg PO DAILY@ 0700 [facility] Last Admin: 04/24/18 06:38 Dose: 225 mcg Phenytoin Sodium (Dilantin -) 300 mg PO BID [facility] Last Admin: 04/24/18 09:22 Dose: 300 mg Valsartan (Diovan -) 40 mg PO DAILY [facility] Last Admin: 04/24/18 10:12 Dose: 40 mg - Objective Vital Signs: Vital Signs Temperature 98.2 F 04/24/18 06:00 Pulse Rate 61 04/24/18 06:00 Respiratory Rate 20 04/24/18 06:00 Blood Pressure 120/63 04/24/18 06:00 O2 Sat by Pulse Oximetry (%) 100 04/23/18 21:00 Constitutional: Yes: No Distress, Calm Cardiovascular: Yes: Pulse Irregular Respiratory: Yes: Diminished Gastrointestinal: Yes: Normal Bowel Sounds, Soft. No: Tenderness Edema: Yes (decreased) Labs: CBC, BMP 04/22/18 08:45 04/24/18 06:20 INR, PTT INR 1.20 (0.82-1.09) H 04/22/18 08:45 Problem List - Problems (1) Hypothyroidism Code(s): E03.9 - HYPOTHYROIDISM, UNSPECIFIED (2) TRUDY (acute kidney injury) Code(s): N17.9 - ACUTE KIDNEY FAILURE, UNSPECIFIED (3) Atrial fibrillation Code(s): I48.91 - UNSPECIFIED ATRIAL FIBRILLATION Qualifiers: Atrial fibrillation type: persistent Qualified Code(s): I48.1 - Persistent atrial fibrillation (4) Chest pain Assessment/Plan: due to CHF Code(s): R07.9 - CHEST PAIN, UNSPECIFIED Qualifiers: Chest pain type: other chest pain Qualified Code(s): R07.89 - Other chest pain; R07.8 - Other chest pain (5) Congestive heart disease Code(s): I50.9 - HEART FAILURE, UNSPECIFIED Qualifiers: Heart failure type: combined systolic and diastolic Heart failure chronicity: acute on chronic Qualified Code(s): I50.43 - Acute on chronic combined systolic (congestive) and diastolic (congestive) heart failure (6) HTN (hypertension) Code(s): I10 - ESSENTIAL (PRIMARY) HYPERTENSION Qualifiers: Hypertension type: essential hypertension Qualified Code(s): I10 - Essential (primary) hypertension (7) Hypercholesterolemia Code(s): E78.00 - PURE HYPERCHOLESTEROLEMIA, UNSPECIFIED (8) S/P CABG (coronary artery bypass graft) Code(s): Z95.1 - PRESENCE OF AORTOCORONARY BYPASS GRAFT (9) CAD (coronary artery disease) Code(s): I25.10 - ATHSCL HEART DISEASE OF [place] CORONARY ARTERY W/O ANG PCTRS Qualifiers: Coronary Disease-Associated Artery/Lesion type: bypass graft [place] vs. 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
[2018-04-24] MEDS: ATORVASTATIN CA 80 MG TABLET (FP) PO SCH (22:11)
[2018-04-25] MEDS ORDERED: LEVOTHYROXINE NA 100 MCG TABLET (FP) ONE (05:45)
[2018-04-25] MEDS ORDERED: LEVOTHYROXINE NA 125 MCG TABLET (FP) ONE (05:45)
[2018-04-25] MEDS: INSULIN SLIDING SCALE (NOVOLOG) 1 VIAL SQ SCH ×4 (06:11→21:58)
[2018-04-25] MEDS: LEVOTHYROXINE 125 MCG, LEVOTHYROXINE 100 MCG PO SCH (06:33)
[2018-04-25] MEDS: DICLOXACILLIN SODIUM 250 MG CAPSULE PO SCH ×3 (06:34→22:01)
[2018-04-25] MEDS ORDERED: PT OWN MED DRAWER 7, Y5N ONE ×5 (06:46→17:19)
--- NOTE | 2018-04-25 10:14 | PN ---
Progress Note, Physician History of Present Illness: No further chest pain, dyspnea, bilateral LE edema wrapped, tolerating physical therapy with walker assistance. - Current Medication List Current Medications: Active Medications Alprazolam (Xanax -) 1 mg PO BID PRN PRN Reason: ANXIETY Last Admin: 04/24/18 22:12 Dose: 1 mg Amiodarone HCl (Cordarone -) 200 mg PO DAILY [facility] Last Admin: 04/24/18 09:21 Dose: 200 mg Apixaban (Eliquis -) 5 mg PO BID [facility] Last Admin: 04/24/18 22:15 Dose: Not Given Aspirin (Ecotrin -) 81 mg PO DAILY [facility] Last Admin: 04/24/18 09:21 Dose: 81 mg Atorvastatin Calcium (Lipitor -) 80 mg PO HS [facility] Last Admin: 04/24/18 22:11 Dose: 80 mg Carvedilol (Coreg -) 6.25 mg PO BID [facility] Last Admin: 04/24/18 22:11 Dose: 6.25 mg Dicloxacillin Sodium (Dynapen -) 500 mg PO TID [facility] Last Admin: 04/25/18 06:34 Dose: 500 mg Docusate Sodium (Colace -) 100 mg PO BID [facility] Last Admin: 04/24/18 22:11 Dose: 100 mg Furosemide (Lasix Injection -) 40 mg IVPUSH DAILY [facility] Last Admin: 04/24/18 09:22 Dose: 40 mg Insulin Aspart (Novolog Vial Sliding Scale -) 0 vial SQ ACHS [facility]; Protocol Last Admin: 04/25/18 06:11 Dose: Not Given Levothyroxine Sodium 125 mcg/ (Levothyroxine Sodium 100 mcg) 225 mcg PO DAILY@ 0700 [facility] Last Admin: 04/25/18 06:33 Dose: 225 mcg Phenytoin Sodium (Dilantin -) 300 mg PO BID [facility] Last Admin: 04/24/18 22:11 Dose: 300 mg Valsartan (Diovan -) 40 mg PO DAILY [facility] Last Admin: 04/24/18 10:12 Dose: 40 mg - Objective Vital Signs: Vital Signs Temperature 97.7 F 04/25/18 06:00 Pulse Rate 59 L 04/25/18 06:00 Respiratory Rate 20 04/25/18 06:00 Blood Pressure 123/70 04/25/18 06:00 O2 Sat by Pulse Oximetry (%) 98 04/24/18 21:00 Constitutional: Yes: No Distress, Calm Neck: Yes: Supple Cardiovascular: Yes: Pulse Irregular Respiratory: Yes: Regular, Diminished Gastrointestinal: Yes: Normal Bowel Sounds, Soft Edema: Yes (Wrapped) Labs: CBC, BMP 04/22/18 08:45 04/24/18 06:20 INR, PTT INR 1.20 (0.82-1.09) H 04/22/18 08:45 - ....Imaging EKG: Report Reviewed (Tele: Rate-controlled afib) Problem List - Problems (1) S/P CABG (coronary artery bypass graft) Code(s): Z95.1 - PRESENCE OF AORTOCORONARY BYPASS GRAFT (2) Lymphedema Code(s): I89.0 - LYMPHEDEMA, NOT ELSEWHERE CLASSIFIED (3) TRUDY (acute kidney injury) Code(s): N17.9 - ACUTE KIDNEY FAILURE, UNSPECIFIED (4) Atrial fibrillation Code(s): I48.91 - UNSPECIFIED ATRIAL FIBRILLATION Qualifiers: Atrial fibrillation type: persistent Qualified Code(s): I48.1 - Persistent atrial fibrillation (5) Chest pain Code(s): R07.9 - CHEST PAIN, UNSPECIFIED Qualifiers: Chest pain type: other chest pain Qualified Code(s): R07.89 - Other chest pain; R07.8 - Other chest pain (6) Congestive heart disease Code(s): I50.9 - HEART FAILURE, UNSPECIFIED Qualifiers: Heart failure type: combined systolic and diastolic Heart failure chronicity: acute on chronic Qualified Code(s): I50.43 - Acute on chronic combined systolic (congestive) and diastolic (congestive) heart failure (7) HTN (hypertension) Code(s): I10 - ESSENTIAL (PRIMARY) HYPERTENSION Qualifiers: Hypertension type: essential hypertension Qualified Code(s): I10 - Essential (primary) hypertension (8) Hypercholesterolemia Code(s): E78.00 - PURE HYPERCHOLESTEROLEMIA, UNSPECIFIED (9) CAD (coronary artery disease) Code(s): I25.10 - ATHSCL HEART DISEASE OF [place] CORONARY ARTERY W/O ANG PCTRS Qualifiers: Coronary Disease-Associated Artery/Lesion type: bypass graft [place] vs. 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 CAD s/p CABG, angina pectoris 2. 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 Chest pain syndrome, ruled out for [place] 4. HTN 5. Hypercholesterolemia 6. Paroxysmal atrial fibrillation h/o DCCV [id number] score of 3+ 7. Hypothyroidism 8. Seizure d/o, h/o meningioma 9. Microalbuminuria, TRUDY resolved 10. Anemia 11. Chronic bilateral lymphedema -> Unsteady gait PLAN: 1. IV diuresis with monitor diuretic response, renal function and electrolytes, add spirinolactone 25 qd with monitor K 2. Patient declines Eliquis 5 mg BID despite review of risks and benefits, will continue ASA 81 qd 3. Continue Carvedilol 6.25 bid and increase Diovan 80 qd as renal fxn stable with uptitration as tolerated 3. Continue Amiodarone 200 qd 4. Continue Lipitor 80 qhs 5. Compression therapy, empiric abx and wound care, vascular input, fall precaution, PT for gait training and eventually family wants him to be at assisted living facility 6. Records from Dr. Maldonado Shaw of [facility] has been reviewed
[2018-04-25] MEDS: DOCUSATE SODIUM 100 MG CAPSULE (FP) PO SCH ×2 (10:58→21:59)
[2018-04-25] MEDS: ASPIRIN COATED 81 MG TABLET.EC PO SCH (10:58)
[2018-04-25] MEDS: AMIODARONE HCL 200 MG TABLET (FP) PO SCH (10:58)
[2018-04-25] MEDS: CARVEDILOL 6.25 MG TABLET (FP) PO SCH ×2 (10:58→22:00)
[2018-04-25] MEDS: FUROSEMIDE 40 MG/4 ML INJECTABLE VIAL IVPUSH SCH (10:58)
[2018-04-25] MEDS: APIXABAN 5 MG TABLET PO SCH ×2 (10:58→21:59)
[2018-04-25] MEDS: PHENYTOIN NA EXTENDED 100 MG CAPSULE (FP) PO SCH ×3 (10:59→22:00)
[2018-04-25] MEDS: VALSARTAN 40 MG TABLET (FP) PO SCH (11:04)
[2018-04-25] MEDS: SPIRONOLACTONE 25 MG TABLET (FP) PO SCH (11:30)
--- NOTE | 2018-04-25 12:24 | PN ---
Progress Note (short form) - Note Progress Note: patient seen and examined today. Chart reviewed. Comfortable. Feels little better Denies chest pain Decrease shortness breath Leg swelling slightly decreased Vital Signs Temp 97.7 F 04/25/18 06:00 Pulse 59 L 04/25/18 06:00 Resp 20 04/25/18 06:00 BP 123/70 04/25/18 06:00 Pulse Ox 98 04/24/18 21:00 Intake & Output 04/24/18 04/25/18 04/25/18 23:59 11:59 23:59 Intake Total 800 10 Output Total 1900 Balance -1100 10 Weight 234 lb 8 oz Intake: IV 10 Lac 10 Oral 800 Output: Urine 1900 Void 1900 Other: Voiding Method Urinal Urinal Bowel Movement No Weight [facility] Active Medications Alprazolam (Xanax -) 1 mg PO BID PRN PRN Reason: ANXIETY Last Admin: 04/24/18 22:12 Dose: 1 mg Amiodarone HCl (Cordarone -) 200 mg PO DAILY [facility] Last Admin: 04/25/18 10:58 Dose: 200 mg Apixaban (Eliquis -) 5 mg PO BID [facility] Last Admin: 04/25/18 10:58 Dose: 5 mg Aspirin (Ecotrin -) 81 mg PO DAILY [facility] Last Admin: 04/25/18 10:58 Dose: 81 mg Atorvastatin Calcium (Lipitor -) 80 mg PO HS [facility] Last Admin: 04/24/18 22:11 Dose: 80 mg Carvedilol (Coreg -) 6.25 mg PO BID [facility] Last Admin: 04/25/18 10:58 Dose: 6.25 mg Dicloxacillin Sodium (Dynapen -) 500 mg PO TID [facility] Last Admin: 04/25/18 06:34 Dose: 500 mg Docusate Sodium (Colace -) 100 mg PO BID [facility] Last Admin: 04/25/18 10:58 Dose: 100 mg Furosemide (Lasix Injection -) 40 mg IVPUSH DAILY [facility] Last Admin: 04/25/18 10:58 Dose: 40 mg Ceftriaxone Sodium 1 gm/ (Dextrose) 100 mls @ 200 mls/hr IVPB DAILY [facility]; Protocol Insulin Aspart (Novolog Vial Sliding Scale -) 0 vial SQ ACHS [facility]; Protocol Last Admin: 04/25/18 06:11 Dose: Not Given Levothyroxine Sodium 125 mcg/ (Levothyroxine Sodium 100 mcg) 225 mcg PO DAILY@ 0700 [facility] Last Admin: 04/25/18 06:33 Dose: 225 mcg Phenytoin Sodium (Dilantin -) 200 mg PO BID [facility] Spironolactone (Aldactone -) 25 mg PO DAILY [facility] Last Admin: 04/25/18 11:30 Dose: 25 mg Valsartan (Diovan -) 80 mg PO DAILY [facility] CBC, BMP 04/22/18 08:45 04/24/18 06:20 Microbiology 04/22/18 14:57 Urine Culture - Final Urine - Urine Clean Catch Proteus Mirabilis Dilantin - 24.6 physical exam Constitutional: Yes: No Distress, Calm/ comfortable Cardiovascular: Yes: Pulse Irregular Respiratory: Yes: Diminished at bases Gastrointestinal: Yes: Normal Bowel Sounds, Soft. No: Tenderness Edema: Yes (decreased) Problem List - Problems (1) Hypothyroidism Code(s): E03.9 - HYPOTHYROIDISM, UNSPECIFIED (2) TRUDY (acute kidney injury) Code(s): N17.9 - ACUTE KIDNEY FAILURE, UNSPECIFIED (3) Atrial fibrillation Code(s): I48.91 - UNSPECIFIED ATRIAL FIBRILLATION Qualifiers: Atrial fibrillation type: persistent Qualified Code(s): I48.1 - Persistent atrial fibrillation (4) Chest pain Assessment/Plan: due to CHF Code(s): R07.9 - CHEST PAIN, UNSPECIFIED Qualifiers: Chest pain type: other chest pain Qualified Code(s): R07.89 - Other chest pain; R07.8 - Other chest pain (5) Congestive heart disease Code(s): I50.9 - HEART FAILURE, UNSPECIFIED Qualifiers: Heart failure type: combined systolic and diastolic Heart failure chronicity: acute on chronic Qualified Code(s): I50.43 - Acute on chronic combined systolic (congestive) and diastolic (congestive) heart failure (6) HTN (hypertension) Code(s): I10 - ESSENTIAL (PRIMARY) HYPERTENSION Qualifiers: Hypertension type: essential hypertension Qualified Code(s): I10 - Essential (primary) hypertension (7) Hypercholesterolemia Code(s): E78.00 - PURE HYPERCHOLESTEROLEMIA, UNSPECIFIED (8) S/P CABG (coronary artery bypass graft) Code(s): Z95.1 - PRESENCE OF AORTOCORONARY BYPASS GRAFT (9) CAD (coronary artery disease) Code(s): I25.10 - ATHSCL HEART DISEASE OF [place] CORONARY ARTERY W/O ANG PCTRS Qualifiers: Coronary Disease-Associated Artery/Lesion type: bypass graft [place] vs. 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
[2018-04-25] MEDS ORDERED: cefTRIAXone SODIUM 1 GM VIAL ONE (14:35)
[2018-04-25] MEDS ORDERED: DEXTROSE 5%-WATER - 50 ML IVPB ONE (14:35)
[2018-04-25] MEDS: CEFTRIAXONE 1 GM in DEXTROSE 5%-WATER - 50 ML IVPB SCH (14:36)
[2018-04-25] MEDS: ATORVASTATIN CA 80 MG TABLET (FP) PO SCH (21:59)
[2018-04-26] MEDS: ALPRAZolam 2 MG TABLET PO PRN (02:07)
[2018-04-26] MEDS ORDERED: oxyCODONE HCL 5 MG TABLET PO ONE (04:41)
[2018-04-26] MEDS ORDERED: LEVOTHYROXINE NA 125 MCG TABLET (FP) ONE (06:21)
[2018-04-26] MEDS ORDERED: LEVOTHYROXINE NA 100 MCG TABLET (FP) ONE (06:22)
[2018-04-26] MEDS: LEVOTHYROXINE 125 MCG, LEVOTHYROXINE 100 MCG PO SCH (06:23)
[2018-04-26] MEDS: INSULIN SLIDING SCALE (NOVOLOG) 1 VIAL SQ SCH ×4 (06:23→21:54)
[2018-04-26] MEDS: DICLOXACILLIN SODIUM 250 MG CAPSULE PO SCH ×2 (06:24→14:00)
[2018-04-26 07:44] LABS: BASO % 1.3 % (0-2.0); EOS % 3.7 % (0-4.5); HEMATOCRIT 34.6 % (35.4-49); HEMOGLOBIN 11.7 GM/dL (11.7-16.9); LYMPH % 20.2 % (8-40); MCHC 33.9 g/dl (32.0-35.9); MEAN CELL VOLUME 97.3 fl (80-96); MEAN PLT VOLUME 9.4 fl (7.5-11.1); MONO % 13.9 % (3.8-10.2); NEUT % 60.9 % (42.8-82.8); PLATELET COUNT 136 K/MM3 (134-434); RBC 3.56 M/mm3 (4.00-5.60); RDW 16.2 % (11.9-15.9); WHITE BLOOD COUNT 6.2 K/mm3 (4.0-10.0)
--- NOTE | 2018-04-26 08:55 | PN ---
Progress Note, Physician Chief Complaint: Events noted Not in distress and denies SOB or chest pain History of Present Illness: Patient was seen and examined. Awake and alert. Chart was reviewed Denies chest pain, SOB or palpitations Refuses NOAC - Current Medication List Current Medications: Active Medications Alprazolam (Xanax -) 1 mg PO BID PRN PRN Reason: ANXIETY Last Admin: 04/26/18 02:07 Dose: 1 mg Amiodarone HCl (Cordarone -) 200 mg PO DAILY [facility] Last Admin: 04/25/18 10:58 Dose: 200 mg Apixaban (Eliquis -) 5 mg PO BID [facility] Last Admin: 04/25/18 21:59 Dose: 5 mg Aspirin (Ecotrin -) 81 mg PO DAILY [facility] Last Admin: 04/25/18 10:58 Dose: 81 mg Atorvastatin Calcium (Lipitor -) 80 mg PO HS [facility] Last Admin: 04/25/18 21:59 Dose: 80 mg Carvedilol (Coreg -) 6.25 mg PO BID [facility] Last Admin: 04/25/18 22:00 Dose: 6.25 mg Dicloxacillin Sodium (Dynapen -) 500 mg PO TID [facility] Last Admin: 04/26/18 06:24 Dose: 500 mg Docusate Sodium (Colace -) 100 mg PO BID [facility] Last Admin: 04/25/18 21:59 Dose: 100 mg Furosemide (Lasix Injection -) 40 mg IVPUSH DAILY [facility] Last Admin: 04/25/18 10:58 Dose: 40 mg Ceftriaxone Sodium 1 gm/ (Dextrose) 50 mls @ 100 mls/hr IVPB DAILY [facility]; Protocol Last Admin: 04/25/18 14:36 Dose: 100 mls/hr Insulin Aspart (Novolog Vial Sliding Scale -) 0 vial SQ ACHS [facility]; Protocol Last Admin: 04/26/18 06:23 Dose: Not Given Levothyroxine Sodium 125 mcg/ (Levothyroxine Sodium 100 mcg) 225 mcg PO DAILY@ 0700 [facility] Last Admin: 04/26/18 06:23 Dose: 225 mcg Phenytoin Sodium (Dilantin -) 200 mg PO BID [facility] Last Admin: 04/25/18 22:00 Dose: Not Given Spironolactone (Aldactone -) 25 mg PO DAILY [facility] Last Admin: 04/25/18 11:30 Dose: 25 mg Valsartan (Diovan -) 80 mg PO DAILY [facility] - Objective Vital Signs: Vital Signs Temperature 97.9 F 04/26/18 06:00 Pulse Rate 62 04/26/18 06:00 Respiratory Rate 20 04/26/18 06:00 Blood Pressure 114/71 04/26/18 06:00 O2 Sat by Pulse Oximetry (%) 100 04/25/18 20:56 Neck: Yes: Supple Cardiovascular: Yes: Regular Rate and Rhythm, S1, S2 Respiratory: Yes: Diminished Gastrointestinal: Yes: Normal Bowel Sounds, Soft. No: Tenderness Edema: Yes Edema: LLE: 2+, RLE: 2+ Labs: CBC, BMP 04/26/18 05:15 INR, PTT INR 1.20 (0.82-1.09) H 04/22/18 08:45 Problem List - Problems (1) HTN (hypertension) Code(s): I10 - ESSENTIAL (PRIMARY) HYPERTENSION Qualifiers: Hypertension type: essential hypertension Qualified Code(s): I10 - Essential (primary) hypertension (2) Hypercholesterolemia Code(s): E78.00 - PURE HYPERCHOLESTEROLEMIA, UNSPECIFIED (3) Atrial fibrillation Code(s): I48.91 - UNSPECIFIED ATRIAL FIBRILLATION Qualifiers: Atrial fibrillation type: persistent Qualified Code(s): I48.1 - Persistent atrial fibrillation (4) Anemia Code(s): D64.9 - ANEMIA, UNSPECIFIED Qualifiers: Anemia type: unspecified type Qualified Code(s): D64.9 - Anemia, unspecified (5) Chest pain Code(s): R07.9 - CHEST PAIN, UNSPECIFIED Qualifiers: Chest pain type: other chest pain Qualified Code(s): R07.89 - Other chest pain; R07.8 - Other chest pain (6) Congestive heart disease Code(s): I50.9 - HEART FAILURE, UNSPECIFIED Qualifiers: Heart failure type: combined systolic and diastolic Heart failure chronicity: acute on chronic Qualified Code(s): I50.43 - Acute on chronic combined systolic (congestive) and diastolic (congestive) heart failure (7) Hypoglycemia Code(s): E16.2 - HYPOGLYCEMIA, UNSPECIFIED (8) Anxiety Code(s): F41.9 - ANXIETY DISORDER, UNSPECIFIED (9) CAD (coronary artery disease) Code(s): I25.10 - ATHSCL HEART DISEASE OF [place] CORONARY ARTERY W/O ANG PCTRS Qualifiers: Coronary Disease-Associated Artery/Lesion type: bypass graft [place] vs. transplanted heart: [place] heart Associated angina: angina presence unspecified Qualified Code(s): I25.810 - Atherosclerosis of coronary artery bypass graft(s) without angina pectoris (10) Gait abnormality Code(s): R26.9 - UNSPECIFIED ABNORMALITIES OF GAIT AND MOBILITY (11) IDDM (insulin dependent diabetes mellitus) Code(s): E11.9 - TYPE 2 DIABETES MELLITUS WITHOUT COMPLICATIONS; Z79.4 - GENERAL INTERNIST (CURRENT) USE OF INSULIN Assessment/Plan 1. CAD s/p CABG, angina pectoris 2. 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 Chest pain syndrome 4. HTN 5. Hypercholesterolemia 6. Paroxysmal atrial fibrillation h/o DCCV [id number] score of 3+ 7. Hypothyroidism 8. Seizure disorder and history of meningioma 9. Microalbuminuria and TRUDY 10. Anemia 11. Chronic bilateral lymphedema and unsteady gait PLAN: 1. IV diuresis with monitor renal function and electrolytes. Continue Spirinolactone 25 qd with monitor K as tolerated 2. Patient declines Eliquis 5 mg BID despite review of risks and benefits. Continue ASA 81 qd 3. Continue Carvedilol 6.25 bid and Diovan 80 qd as renal function stable with uptitration as tolerated 3. Continue Amiodarone 200 qd 4. Continue Lipitor 80 qhs 5. Compression therapy, empiric antibiotics and wound care, fall precaution, PT for gait training and eventually family wants him to be at assisted living facility 6. Dr. Cook's assessment reviewed Further plans are to follow David Galaviz MD
[2018-04-26 09:03] LABS: ALBUMIN 2.6 g/dl (3.4-5.0); ALK PHOS 243 U/L (45-117); ANION GAP 6 (8-16); BILIRUBIN,TOTAL 0.5 mg/dL (0.2-1.0); BLOOD UREA NITROGEN 24 mg/dL (7-18); CALCIUM 7.8 mg/dL (8.5-10.1); CHLORIDE 103 mmol/L (98-107); CO2 33 mmol/L (21-32); GLUCOSE,RANDOM 106 mg/dL (74-106); MAGNESIUM 2.3 mg/dL (1.8-2.4); POTASSIUM 4.2 mmol/L (3.5-5.1); SGOT/AST 54 U/L (15-37); SGPT/ALT 54 U/L (12-78); SODIUM 142 mmol/L (136-145); TOT PROT 5.9 g/dl (6.4-8.2)
[2018-04-26] MEDS ORDERED: cefTRIAXone SODIUM 1 GM VIAL ONE (09:21)
[2018-04-26] MEDS ORDERED: DEXTROSE 5%-WATER - 50 ML IVPB ONE (09:22)
[2018-04-26] MEDS: FUROSEMIDE 40 MG/4 ML INJECTABLE VIAL IVPUSH SCH (09:44)
[2018-04-26] MEDS: VALSARTAN 40 MG TABLET (FP) PO SCH (09:44)
[2018-04-26] MEDS: DOCUSATE SODIUM 100 MG CAPSULE (FP) PO SCH ×2 (09:45→21:55)
[2018-04-26] MEDS: SPIRONOLACTONE 25 MG TABLET (FP) PO SCH (09:45)
[2018-04-26] MEDS: AMIODARONE HCL 200 MG TABLET (FP) PO SCH (09:45)
[2018-04-26] MEDS: ASPIRIN COATED 81 MG TABLET.EC PO SCH (09:45)
[2018-04-26] MEDS: CARVEDILOL 6.25 MG TABLET (FP) PO SCH ×2 (09:45→21:55)
[2018-04-26] MEDS: APIXABAN 5 MG TABLET PO SCH ×2 (09:45→21:55)
[2018-04-26] MEDS: CEFTRIAXONE 1 GM in DEXTROSE 5%-WATER - 50 ML IVPB SCH (09:46)
[2018-04-26] MEDS: PHENYTOIN NA EXTENDED 100 MG CAPSULE (FP) PO SCH ×2 (09:47→21:56)
--- NOTE | 2018-04-26 11:06 | PN ---
Progress Note, Physician Chief Complaint: feeling better legs do not feel heavy no chest pain - Current Medication List Current Medications: Active Medications Alprazolam (Xanax -) 1 mg PO BID PRN PRN Reason: ANXIETY Last Admin: 04/26/18 02:07 Dose: 1 mg Amiodarone HCl (Cordarone -) 200 mg PO DAILY [facility] Last Admin: 04/26/18 09:45 Dose: 200 mg Apixaban (Eliquis -) 5 mg PO BID [facility] Last Admin: 04/26/18 09:45 Dose: 5 mg Aspirin (Ecotrin -) 81 mg PO DAILY [facility] Last Admin: 04/26/18 09:45 Dose: 81 mg Atorvastatin Calcium (Lipitor -) 80 mg PO HS [facility] Last Admin: 04/25/18 21:59 Dose: 80 mg Carvedilol (Coreg -) 6.25 mg PO BID [facility] Last Admin: 04/26/18 09:45 Dose: 6.25 mg Dicloxacillin Sodium (Dynapen -) 500 mg PO TID [facility] Last Admin: 04/26/18 06:24 Dose: 500 mg Docusate Sodium (Colace -) 100 mg PO BID [facility] Last Admin: 04/26/18 09:45 Dose: 100 mg Furosemide (Lasix Injection -) 40 mg IVPUSH DAILY [facility] Last Admin: 04/26/18 09:44 Dose: 40 mg Ceftriaxone Sodium 1 gm/ (Dextrose) 50 mls @ 100 mls/hr IVPB DAILY [facility]; Protocol Last Admin: 04/26/18 09:46 Dose: 100 mls/hr Insulin Aspart (Novolog Vial Sliding Scale -) 0 vial SQ ACHS [facility]; Protocol Last Admin: 04/26/18 06:23 Dose: Not Given Levothyroxine Sodium 125 mcg/ (Levothyroxine Sodium 100 mcg) 225 mcg PO DAILY@ 0700 [facility] Last Admin: 04/26/18 06:23 Dose: 225 mcg Phenytoin Sodium (Dilantin -) 200 mg PO BID [facility] Last Admin: 04/26/18 09:47 Dose: 200 mg Spironolactone (Aldactone -) 25 mg PO DAILY [facility] Last Admin: 04/26/18 09:45 Dose: 25 mg Valsartan (Diovan -) 80 mg PO DAILY [facility] Last Admin: 04/26/18 09:44 Dose: 80 mg - Objective Vital Signs: Vital Signs Temperature 97.9 F 04/26/18 06:00 Pulse Rate 62 04/26/18 06:00 Respiratory Rate 20 04/26/18 06:00 Blood Pressure 114/71 04/26/18 06:00 O2 Sat by Pulse Oximetry (%) 100 04/25/18 20:56 Constitutional: Yes: No Distress, Calm Cardiovascular: Yes: Pulse Irregular Respiratory: Yes: CTA Bilaterally Gastrointestinal: Yes: Normal Bowel Sounds, Soft. No: Tenderness Edema: Yes Labs: CBC, BMP 04/26/18 05:15 04/26/18 05:15 INR, PTT INR 1.20 (0.82-1.09) H 04/22/18 08:45 Problem List - Problems (1) Hypothyroidism Code(s): E03.9 - HYPOTHYROIDISM, UNSPECIFIED (2) TRUDY (acute kidney injury) Code(s): N17.9 - ACUTE KIDNEY FAILURE, UNSPECIFIED (3) Atrial fibrillation Code(s): I48.91 - UNSPECIFIED ATRIAL FIBRILLATION Qualifiers: Atrial fibrillation type: persistent Qualified Code(s): I48.1 - Persistent atrial fibrillation (4) Chest pain Code(s): R07.9 - CHEST PAIN, UNSPECIFIED Qualifiers: Chest pain type: other chest pain Qualified Code(s): R07.89 - Other chest pain; R07.8 - Other chest pain (5) Congestive heart disease Code(s): I50.9 - HEART FAILURE, UNSPECIFIED Qualifiers: Heart failure type: combined systolic and diastolic Heart failure chronicity: acute on chronic Qualified Code(s): I50.43 - Acute on chronic combined systolic (congestive) and diastolic (congestive) heart failure (6) HTN (hypertension) Code(s): I10 - ESSENTIAL (PRIMARY) HYPERTENSION Qualifiers: Hypertension type: essential hypertension Qualified Code(s): I10 - Essential (primary) hypertension (7) Hypercholesterolemia Code(s): E78.00 - PURE HYPERCHOLESTEROLEMIA, UNSPECIFIED (8) S/P CABG (coronary artery bypass graft) Code(s): Z95.1 - PRESENCE OF AORTOCORONARY BYPASS GRAFT (9) CAD (coronary artery disease) Code(s): I25.10 - ATHSCL HEART DISEASE OF [place] CORONARY ARTERY W/O ANG PCTRS Qualifiers: Coronary Disease-Associated Artery/Lesion type: bypass graft [place] vs. transplanted heart: [place] heart Associated angina: angina presence unspecified Qualified Code(s): I25.810 - Atherosclerosis of coronary artery bypass graft(s) without angina pectoris (10) IDDM (insulin dependent diabetes mellitus) Code(s): E11.9 - TYPE 2 DIABETES MELLITUS WITHOUT COMPLICATIONS; Z79.4 - [facility] (CURRENT) USE OF INSULIN Assessment/Plan PLAN CHEST PAIN CHF DECOMPENSATION --cardiac enymes negative --On ASA --dc Eliquis-- pt is refusing it --Telemetry monitoring -- Echo noted --rate is controlled -- renal function good so far on Lasix -- on iv Lasix h/o Meningioma -- on Dilantin - seizure controlled per family Frequent falls -- PT eval Hypothyroidism -- not taking Synthroid as prescribed -- increase Synthroid , will need to repeat TSH in a few weeks-- d/w family dc planning to SNF MARY wrap to B/L legs
[2018-04-26] MEDS ORDERED: ALPRAZolam 2 MG TABLET PO ONE (21:44)
[2018-04-26] MEDS: ATORVASTATIN CA 80 MG TABLET (FP) PO SCH (21:55)
[2018-04-27] MEDS: INSULIN SLIDING SCALE (NOVOLOG) 1 VIAL SQ SCH ×4 (06:21→21:37)
[2018-04-27] MEDS ORDERED: LEVOTHYROXINE NA 100 MCG TABLET (FP) ONE (06:22)
[2018-04-27] MEDS ORDERED: LEVOTHYROXINE NA 125 MCG TABLET (FP) ONE (06:22)
[2018-04-27] MEDS: LEVOTHYROXINE 125 MCG, LEVOTHYROXINE 100 MCG PO SCH (06:23)
--- NOTE | 2018-04-27 08:32 | PN ---
Progress Note, Physician Chief Complaint: Events noted Not in distress and denies SOB or chest pain History of Present Illness: Patient was seen and examined. Awake and alert. Chart was reviewed Denies chest pain, SOB or palpitations - Current Medication List Current Medications: Active Medications Amiodarone HCl (Cordarone -) 200 mg PO DAILY [facility] Last Admin: 04/26/18 09:45 Dose: 200 mg Apixaban (Eliquis -) 5 mg PO BID [facility] Last Admin: 04/26/18 21:55 Dose: 5 mg Aspirin (Ecotrin -) 81 mg PO DAILY [facility] Last Admin: 04/26/18 09:45 Dose: 81 mg Atorvastatin Calcium (Lipitor -) 80 mg PO HS [facility] Last Admin: 04/26/18 21:55 Dose: 80 mg Carvedilol (Coreg -) 6.25 mg PO BID [facility] Last Admin: 04/26/18 21:55 Dose: 6.25 mg Docusate Sodium (Colace -) 100 mg PO BID [facility] Last Admin: 04/26/18 21:55 Dose: 100 mg Furosemide (Lasix Injection -) 40 mg IVPUSH DAILY [facility] Last Admin: 04/26/18 09:44 Dose: 40 mg Ceftriaxone Sodium 1 gm/ (Dextrose) 50 mls @ 100 mls/hr IVPB DAILY [facility]; Protocol Last Admin: 04/26/18 09:46 Dose: 100 mls/hr Insulin Aspart (Novolog Vial Sliding Scale -) 0 vial SQ ACHS [facility]; Protocol Last Admin: 04/27/18 06:21 Dose: Not Given Levothyroxine Sodium 125 mcg/ (Levothyroxine Sodium 100 mcg) 225 mcg PO DAILY@ 0700 [facility] Last Admin: 04/27/18 06:23 Dose: 225 mcg Phenytoin Sodium (Dilantin -) 200 mg PO BID [facility] Last Admin: 04/26/18 21:56 Dose: 200 mg Spironolactone (Aldactone -) 25 mg PO DAILY [facility] Last Admin: 04/26/18 09:45 Dose: 25 mg Valsartan (Diovan -) 80 mg PO DAILY [facility] Last Admin: 04/26/18 09:44 Dose: 80 mg - Objective Vital Signs: Vital Signs Temperature 98.5 F 04/27/18 05:47 Pulse Rate 75 04/27/18 05:47 Respiratory Rate 20 04/27/18 05:47 Blood Pressure 126/77 04/27/18 05:47 O2 Sat by Pulse Oximetry (%) 100 04/26/18 20:25 Neck: Yes: Supple Cardiovascular: Yes: Regular Rate and Rhythm, S1, S2 Respiratory: Yes: Diminished Gastrointestinal: Yes: Normal Bowel Sounds, Soft. No: Tenderness Edema: Yes Edema: LLE: 1+, RLE: 1+ Additional Findings/Remarks: - Review of Systems Constitutional: denies: Chills, Fever Cardiovascular: reports: Chest Pain, Shortness of Breath. denies: Palpitations Respiratory: reports: SOB, SOB on Exertion. denies: Cough, Hemoptysis, Orthopnea, PND Gastrointestinal: denies: Abdominal Pain, Constipation, Diarrhea, Melena, Nausea , Rectal Bleeding, Vomiting Musculoskeletal: reports: Joint Pain. denies: Back Pain Neurological: reports: Unsteady Gait, Weakness. denies: Dizziness, Headache, Seizure, Syncope Labs: CBC, BMP 04/26/18 05:15 04/26/18 05:15 INR, PTT INR 1.20 (0.82-1.09) H 04/22/18 08:45 Problem List - Problems (1) HTN (hypertension) Code(s): I10 - ESSENTIAL (PRIMARY) HYPERTENSION Qualifiers: Hypertension type: essential hypertension Qualified Code(s): I10 - Essential (primary) hypertension (2) Hypercholesterolemia Code(s): E78.00 - PURE HYPERCHOLESTEROLEMIA, UNSPECIFIED (3) Atrial fibrillation Code(s): I48.91 - UNSPECIFIED ATRIAL FIBRILLATION Qualifiers: Atrial fibrillation type: persistent Qualified Code(s): I48.1 - Persistent atrial fibrillation (4) Anemia Code(s): D64.9 - ANEMIA, UNSPECIFIED Qualifiers: Anemia type: unspecified type Qualified Code(s): D64.9 - Anemia, unspecified (5) Chest pain Code(s): R07.9 - CHEST PAIN, UNSPECIFIED Qualifiers: Chest pain type: other chest pain Qualified Code(s): R07.89 - Other chest pain; R07.8 - Other chest pain (6) Congestive heart disease Code(s): I50.9 - HEART FAILURE, UNSPECIFIED Qualifiers: Heart failure type: combined systolic and diastolic Heart failure chronicity: acute on chronic Qualified Code(s): I50.43 - Acute on chronic combined systolic (congestive) and diastolic (congestive) heart failure (7) Hypoglycemia Code(s): E16.2 - HYPOGLYCEMIA, UNSPECIFIED (8) Anxiety Code(s): F41.9 - ANXIETY DISORDER, UNSPECIFIED (9) CAD (coronary artery disease) Code(s): I25.10 - ATHSCL HEART DISEASE OF [place] CORONARY ARTERY W/O ANG PCTRS Qualifiers: Coronary Disease-Associated Artery/Lesion type: bypass graft [place] vs. transplanted heart: [place] heart Associated angina: angina presence unspecified Qualified Code(s): I25.810 - Atherosclerosis of coronary artery bypass graft(s) without angina pectoris (10) Gait abnormality Code(s): R26.9 - UNSPECIFIED ABNORMALITIES OF GAIT AND MOBILITY (11) IDDM (insulin dependent diabetes mellitus) Code(s): E11.9 - TYPE 2 DIABETES MELLITUS WITHOUT COMPLICATIONS; Z79.4 - USP (CURRENT) USE OF INSULIN Assessment/Plan 1. CAD s/p CABG, angina pectoris 2. 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 Chest pain syndrome 4. HTN 5. Hypercholesterolemia 6. Paroxysmal atrial fibrillation h/o DCCV [id number] score of 3+ 7. Hypothyroidism 8. Seizure disorder and history of meningioma 9. Microalbuminuria and TRUDY 10. Anemia 11. Chronic bilateral lymphedema and unsteady gait PLAN: 1. IV diuresis with monitor renal function and electrolytes. Continue Spirinolactone 25 qd with monitor K as tolerated 2. Patient declines Eliquis 5 mg BID despite review of risks and benefits. Continue ASA 81 qd for now 3. Continue Carvedilol 6.25 bid and Diovan 80 qd as renal function stable with uptitration as tolerated 3. Continue Amiodarone 200 qd 4. Continue Lipitor 80 qhs 5. Compression therapy, empiric antibiotics and wound care, fall precaution, PT for gait training and eventually family wants him to be at assisted living facility Further plans are to follow David Galaviz MD
--- NOTE | 2018-04-27 10:13 | PN ---
Progress Note, Physician Chief Complaint: feeling better legs do not feel heavy no chest pain - Current Medication List Current Medications: Active Medications Amiodarone HCl (Cordarone -) 200 mg PO DAILY [facility] Last Admin: 04/26/18 09:45 Dose: 200 mg Apixaban (Eliquis -) 5 mg PO BID [facility] Last Admin: 04/26/18 21:55 Dose: 5 mg Aspirin (Ecotrin -) 81 mg PO DAILY [facility] Last Admin: 04/26/18 09:45 Dose: 81 mg Atorvastatin Calcium (Lipitor -) 80 mg PO HS [facility] Last Admin: 04/26/18 21:55 Dose: 80 mg Carvedilol (Coreg -) 6.25 mg PO BID [facility] Last Admin: 04/26/18 21:55 Dose: 6.25 mg Docusate Sodium (Colace -) 100 mg PO BID [facility] Last Admin: 04/26/18 21:55 Dose: 100 mg Furosemide (Lasix Injection -) 40 mg IVPUSH DAILY [facility] Last Admin: 04/26/18 09:44 Dose: 40 mg Ceftriaxone Sodium 1 gm/ (Dextrose) 50 mls @ 100 mls/hr IVPB DAILY [facility]; Protocol Last Admin: 04/26/18 09:46 Dose: 100 mls/hr Insulin Aspart (Novolog Vial Sliding Scale -) 0 vial SQ ACHS [facility]; Protocol Last Admin: 04/27/18 06:21 Dose: Not Given Levothyroxine Sodium 125 mcg/ (Levothyroxine Sodium 100 mcg) 225 mcg PO DAILY@ 0700 [facility] Last Admin: 04/27/18 06:23 Dose: 225 mcg Phenytoin Sodium (Dilantin -) 200 mg PO BID [facility] Last Admin: 04/26/18 21:56 Dose: 200 mg Spironolactone (Aldactone -) 25 mg PO DAILY [facility] Last Admin: 04/26/18 09:45 Dose: 25 mg Valsartan (Diovan -) 80 mg PO DAILY [facility] Last Admin: 04/26/18 09:44 Dose: 80 mg - Objective Vital Signs: Vital Signs Temperature 97.6 F 04/27/18 09:00 Pulse Rate 64 04/27/18 09:00 Respiratory Rate 20 04/27/18 09:00 Blood Pressure 120/65 04/27/18 09:00 O2 Sat by Pulse Oximetry (%) 100 04/27/18 09:00 Constitutional: Yes: No Distress, Calm Cardiovascular: Yes: Pulse Irregular Respiratory: Yes: CTA Bilaterally Gastrointestinal: Yes: Normal Bowel Sounds, Soft. No: Tenderness Edema: Yes (decreased) Edema: LLE: 2+, RLE: 2+ Labs: CBC, BMP 04/26/18 05:15 04/26/18 05:15 INR, PTT INR 1.20 (0.82-1.09) H 04/22/18 08:45 Problem List - Problems (1) Hypothyroidism Code(s): E03.9 - HYPOTHYROIDISM, UNSPECIFIED (2) TRUDY (acute kidney injury) Code(s): N17.9 - ACUTE KIDNEY FAILURE, UNSPECIFIED (3) Atrial fibrillation Code(s): I48.91 - UNSPECIFIED ATRIAL FIBRILLATION Qualifiers: Atrial fibrillation type: persistent Qualified Code(s): I48.1 - Persistent atrial fibrillation (4) Chest pain Code(s): R07.9 - CHEST PAIN, UNSPECIFIED Qualifiers: Chest pain type: other chest pain Qualified Code(s): R07.89 - Other chest pain; R07.8 - Other chest pain (5) Congestive heart disease Code(s): I50.9 - HEART FAILURE, UNSPECIFIED Qualifiers: Heart failure type: combined systolic and diastolic Heart failure chronicity: acute on chronic Qualified Code(s): I50.43 - Acute on chronic combined systolic (congestive) and diastolic (congestive) heart failure (6) HTN (hypertension) Code(s): I10 - ESSENTIAL (PRIMARY) HYPERTENSION Qualifiers: Hypertension type: essential hypertension Qualified Code(s): I10 - Essential (primary) hypertension (7) Hypercholesterolemia Code(s): E78.00 - PURE HYPERCHOLESTEROLEMIA, UNSPECIFIED (8) S/P CABG (coronary artery bypass graft) Code(s): Z95.1 - PRESENCE OF AORTOCORONARY BYPASS GRAFT (9) CAD (coronary artery disease) Code(s): I25.10 - ATHSCL HEART DISEASE OF [place] CORONARY ARTERY W/O ANG PCTRS Qualifiers: Coronary Disease-Associated Artery/Lesion type: bypass graft [place] vs. transplanted heart: [place] heart Associated angina: angina presence unspecified Qualified Code(s): I25.810 - Atherosclerosis of coronary artery bypass graft(s) without angina pectoris (10) IDDM (insulin dependent diabetes mellitus) Code(s): E11.9 - TYPE 2 DIABETES MELLITUS WITHOUT COMPLICATIONS; Z79.4 - [employer] (CURRENT) USE OF INSULIN Assessment/Plan PLAN CHEST PAIN CHF DECOMPENSATION --cardiac enzymes negative --On ASA --dc Eliquis-- pt is refusing it --Telemetry monitoring -- Echo noted --rate is controlled -- renal function good so far on Lasix -- on iv Lasix-- change to PO h/o Meningioma -- on Dilantin - seizure controlled per family Frequent falls -- PT eval Hypothyroidism -- not taking Synthroid as prescribed -- increase Synthroid , will need to repeat TSH in a few weeks-- d/w family dc planning to SNF [facility] wrap to B/L legs
[2018-04-27] MEDS: DOCUSATE SODIUM 100 MG CAPSULE (FP) PO SCH ×2 (10:25→21:37)
[2018-04-27] MEDS: PHENYTOIN NA EXTENDED 100 MG CAPSULE (FP) PO SCH ×2 (10:26→21:36)
[2018-04-27] MEDS: ASPIRIN COATED 81 MG TABLET.EC PO SCH (10:26)
[2018-04-27] MEDS: FUROSEMIDE 40 MG/4 ML INJECTABLE VIAL IVPUSH SCH (10:26)
[2018-04-27] MEDS: APIXABAN 5 MG TABLET PO SCH ×2 (10:26→21:35)
[2018-04-27] MEDS: SPIRONOLACTONE 25 MG TABLET (FP) PO SCH (10:26)
[2018-04-27] MEDS: CARVEDILOL 6.25 MG TABLET (FP) PO SCH ×2 (10:26→21:36)
[2018-04-27] MEDS: VALSARTAN 40 MG TABLET (FP) PO SCH (10:26)
[2018-04-27] MEDS: AMIODARONE HCL 200 MG TABLET (FP) PO SCH (10:26)
[2018-04-27] MEDS ORDERED: DEXTROSE 5%-WATER - 50 ML IVPB ONE (11:02)
[2018-04-27] MEDS ORDERED: cefTRIAXone SODIUM 1 GM VIAL ONE (11:02)
[2018-04-27] MEDS: ALPRAZolam 0.25 MG TABLET PO SCH ×2 (11:12→21:35)
[2018-04-27] MEDS: CEFTRIAXONE 1 GM in DEXTROSE 5%-WATER - 50 ML IVPB SCH (11:13)
[2018-04-27] MEDS: DICLOXACILLIN SODIUM 250 MG CAPSULE PO SCH ×2 (11:13→21:36)
[2018-04-27] MEDS ORDERED: INSULIN (NOVOLOG) ASPART 100 UNITS/ML 10ML VIAL ONE (21:33)
[2018-04-27] MEDS: ATORVASTATIN CA 80 MG TABLET (FP) PO SCH (21:35)
[2018-04-28] MEDS: LEVOTHYROXINE 125 MCG, LEVOTHYROXINE 100 MCG PO SCH (06:27)
[2018-04-28] MEDS: INSULIN SLIDING SCALE (NOVOLOG) 1 VIAL SQ SCH ×4 (06:27→22:12)
[2018-04-28 07:09] LABS: ANION GAP 5 (8-16); BLOOD UREA NITROGEN 21 mg/dL (7-18); CALCIUM 7.9 mg/dL (8.5-10.1); CHLORIDE 102 mmol/L (98-107); CO2 33 mmol/L (21-32); GLUCOSE,RANDOM 91 mg/dL (74-106); SODIUM 140 mmol/L (136-145)
--- NOTE | 2018-04-28 09:12 | PN ---
Progress Note, Physician History of Present Illness: No further chest pain, dyspnea, bilateral LE edema wrapped, tolerating physical therapy with walker assistance. - Current Medication List Current Medications: Active Medications Alprazolam (Xanax -) 1 mg PO BID [facility] Last Admin: 04/27/18 21:35 Dose: 1 mg Amiodarone HCl (Cordarone -) 200 mg PO DAILY [facility] Last Admin: 04/27/18 10:26 Dose: 200 mg Apixaban (Eliquis -) 5 mg PO BID [facility] Last Admin: 04/27/18 21:35 Dose: 5 mg Aspirin (Ecotrin -) 81 mg PO DAILY [facility] Last Admin: 04/27/18 10:26 Dose: 81 mg Atorvastatin Calcium (Lipitor -) 80 mg PO HS [facility] Last Admin: 04/27/18 21:35 Dose: 80 mg Carvedilol (Coreg -) 6.25 mg PO BID [facility] Last Admin: 04/27/18 21:36 Dose: 6.25 mg Dicloxacillin Sodium (Dynapen -) 500 mg PO BID [facility] Last Admin: 04/27/18 21:36 Dose: 500 mg Docusate Sodium (Colace -) 100 mg PO BID [facility] Last Admin: 04/27/18 21:37 Dose: 100 mg Furosemide (Lasix -) 40 mg PO DAILY [facility] Ceftriaxone Sodium 1 gm/ (Dextrose) 50 mls @ 100 mls/hr IVPB DAILY [facility]; Protocol Last Admin: 04/27/18 11:13 Dose: 100 mls/hr Insulin Aspart (Novolog Vial Sliding Scale -) 0 vial SQ ACHS [facility]; Protocol Last Admin: 04/28/18 06:27 Dose: Not Given Levothyroxine Sodium 125 mcg/ (Levothyroxine Sodium 100 mcg) 225 mcg PO DAILY@ 0700 [facility] Last Admin: 04/28/18 06:27 Dose: Not Given Phenytoin Sodium (Dilantin -) 200 mg PO BID [facility] Last Admin: 04/27/18 21:36 Dose: 200 mg Spironolactone (Aldactone -) 25 mg PO DAILY [facility] Last Admin: 04/27/18 10:26 Dose: 25 mg Valsartan (Diovan -) 80 mg PO DAILY [facility] Last Admin: 04/27/18 10:26 Dose: 80 mg - Objective Vital Signs: Vital Signs Temperature 97.9 F 04/28/18 09:00 Pulse Rate 73 06/25/18 09:00 Respiratory Rate 20 04/28/18 09:00 Blood Pressure 110/55 04/28/18 09:00 O2 Sat by Pulse Oximetry (%) 100 04/28/18 06:26 Constitutional: Yes: No Distress, Calm Neck: Yes: Supple Cardiovascular: Yes: Regular Rate and Rhythm Respiratory: Yes: Regular, Diminished Gastrointestinal: Yes: Normal Bowel Sounds, Soft Edema: Yes Edema: LLE: 1+, RLE: 1+ Labs: CBC, BMP 04/26/18 05:15 04/28/18 05:30 INR, PTT INR 1.20 (0.82-1.09) H 04/22/18 08:45 Problem List - Problems (1) S/P CABG (coronary artery bypass graft) Code(s): Z95.1 - PRESENCE OF AORTOCORONARY BYPASS GRAFT (2) Lymphedema Code(s): I89.0 - LYMPHEDEMA, NOT ELSEWHERE CLASSIFIED (3) TRUDY (acute kidney injury) Code(s): N17.9 - ACUTE KIDNEY FAILURE, UNSPECIFIED (4) Atrial fibrillation Code(s): I48.91 - UNSPECIFIED ATRIAL FIBRILLATION Qualifiers: Atrial fibrillation type: persistent Qualified Code(s): I48.1 - Persistent atrial fibrillation (5) Chest pain Code(s): R07.9 - CHEST PAIN, UNSPECIFIED Qualifiers: Chest pain type: other chest pain Qualified Code(s): R07.89 - Other chest pain; R07.8 - Other chest pain (6) Congestive heart disease Code(s): I50.9 - HEART FAILURE, UNSPECIFIED Qualifiers: Heart failure type: combined systolic and diastolic Heart failure chronicity: acute on chronic Qualified Code(s): I50.43 - Acute on chronic combined systolic (congestive) and diastolic (congestive) heart failure (7) HTN (hypertension) Code(s): I10 - ESSENTIAL (PRIMARY) HYPERTENSION Qualifiers: Hypertension type: essential hypertension Qualified Code(s): I10 - Essential (primary) hypertension (8) Hypercholesterolemia Code(s): E78.00 - PURE HYPERCHOLESTEROLEMIA, UNSPECIFIED (9) CAD (coronary artery disease) Code(s): I25.10 - ATHSCL HEART DISEASE OF [place] CORONARY ARTERY W/O ANG PCTRS Qualifiers: Coronary Disease-Associated Artery/Lesion type: bypass graft [place] vs. transplanted heart: [place] heart Associated angina: angina presence unspecified Qualified Code(s): I25.810 - Atherosclerosis of coronary artery bypass graft(s) without angina pectoris (10) IDDM (insulin dependent diabetes mellitus) Code(s): E11.9 - TYPE 2 DIABETES MELLITUS WITHOUT COMPLICATIONS; Z79.4 - DISEASE MANAGEMENT NURSE (CURRENT) USE OF INSULIN Assessment/Plan 1. CAD s/p CABG, angina pectoris 2. 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 Chest pain syndrome 4. HTN 5. Hypercholesterolemia 6. Paroxysmal atrial fibrillation h/o DCCV [id number] score of 3+ 7. Hypothyroidism 8. Seizure disorder and history of meningioma 9. Microalbuminuria and TRUDY 10. Anemia 11. Chronic bilateral lymphedema and unsteady gait PLAN: 1. Continue Lasix 40 qd and Spirinolactone 25 qd with monitor renal function and electrolytes. 2. Patient declines Eliquis 5 mg BID despite review of risks and benefits. Continue ASA 81 qd for now 3. Continue Carvedilol 6.25 bid and Diovan 80 qd as renal function stable with uptitration as tolerated 3. Continue Amiodarone 200 qd 4. Continue Lipitor 80 qhs 5. Compression therapy, empiric antibiotic course and wound care, fall precaution, PT for gait training and eventually family wants him to be at assisted living facility, patient may proceed with acute rehab transfer from cardiovascular standpoint
[2018-04-28] MEDS ORDERED: cefTRIAXone SODIUM 1 GM VIAL ONE (10:18)
[2018-04-28] MEDS ORDERED: DEXTROSE 5%-WATER - 50 ML IVPB ONE (10:18)
[2018-04-28] MEDS: CEFTRIAXONE 1 GM in DEXTROSE 5%-WATER - 50 ML IVPB SCH (10:20)
[2018-04-28] MEDS: DICLOXACILLIN SODIUM 250 MG CAPSULE PO SCH ×2 (10:20→22:12)
[2018-04-28] MEDS: SPIRONOLACTONE 25 MG TABLET (FP) PO SCH (10:21)
[2018-04-28] MEDS: AMIODARONE HCL 200 MG TABLET (FP) PO SCH (10:21)
[2018-04-28] MEDS: FUROSEMIDE 40 MG TABLET (FP) PO SCH (10:21)
[2018-04-28] MEDS: APIXABAN 5 MG TABLET PO SCH ×2 (10:21→22:11)
[2018-04-28] MEDS: VALSARTAN 40 MG TABLET (FP) PO SCH (10:21)
[2018-04-28] MEDS: DOCUSATE SODIUM 100 MG CAPSULE (FP) PO SCH ×2 (10:21→22:11)
[2018-04-28] MEDS: ALPRAZolam 0.25 MG TABLET PO SCH ×2 (10:21→23:19)
[2018-04-28] MEDS: CARVEDILOL 6.25 MG TABLET (FP) PO SCH ×2 (10:21→22:11)
[2018-04-28] MEDS: ASPIRIN COATED 81 MG TABLET.EC PO SCH (10:21)
[2018-04-28] MEDS: PHENYTOIN NA EXTENDED 100 MG CAPSULE (FP) PO SCH ×2 (10:42→22:11)
[2018-04-28 12:32] VITALS: BMI 31.5
--- NOTE | 2018-04-28 12:39 | DS ---
Physical Examination Vital Signs: Vital Signs Temperature 97.9 F 04/28/18 09:00 Pulse Rate 73 04/28/18 09:00 Respiratory Rate 20 04/28/18 09:00 Blood Pressure 110/55 04/28/18 09:00 O2 Sat by Pulse Oximetry (%) 100 04/28/18 06:26 Labs: CBC, BMP 04/26/18 05:15 04/28/18 05:30 Discharge Summary Reason For Visit: ACUTE KIDNEY INJURY, CHF, ANEMIA, HYPOGLYCEMIA Current Active Problems TRUDY (acute kidney injury) (Acute) Anemia (Acute) Atrial fibrillation (Acute) Chest pain (Acute) Congestive heart disease (Acute) HTN (hypertension) (Acute) Hypercholesterolemia (Acute) Hypoglycemia (Acute) Hypothyroidism (Acute) Lymphedema (Acute) S/P CABG (coronary artery bypass graft) (Acute) Condition: Guarded - Instructions Referrals: Mika Flaherty MD [Primary Care Provider] - - Home Medications Comprehensive Discharge Medication List: Ambulatory Orders Amiodarone HCl [Cordarone -] 300 mg PO DAILY 08/25/13 Ascorbic Acid [Vitamin C] 1,000 mg PO DAILY 08/25/13 Aspirin Coated [Ecotrin -] 81 mg PO DAILY 08/25/13 Atorvastatin Ca [Lipitor] 80 mg PO HS 08/25/13 Carvedilol [Coreg -] 6.25 mg PO BID 08/25/13 Dicloxacillin Sodium 500 mg PO TID 08/25/13 Digoxin [Lanoxin -] 0.125 mg PO DAILY 08/25/13 Flaxseed Oil 1,000 mg PO DAILY 08/25/13 Folic Acid 0.8 mg PO DAILY 08/25/13 Furosemide [Lasix -] 40 mg PO BID 08/25/13 Insulin Glargine,Hum.rec.anlog [Lantus (10mL VIAL) -] 20 units SQ HS 08/25/13 Magnesium 30 mg PO DAILY 08/25/13 Phenytoin Sodium Extended [Phenytek] 300 mg PO BID 08/25/13 Potassium Chloride [K-Tab] 10 meq PO DAILY 08/25/13 Pyridoxine HCl (B-6) [Vitamin B6 -] 50 mg PO DAILY 08/25/13 Zinc 50 mg PO DAILY 08/25/13 Insulin Lispro [Humalog] 0 unit SQ TID 08/26/13 Alprazolam [Xanax] 1 mg PO BID 07/06/17 Cyanocobalamin [Vitamin B12 -] 1,000 mcg PO DAILY 07/06/17 Docusate Sodium [Colace -] 100 mg PO BID 07/06/17 Omer-3 Fatty Acids [Omer-3] 1,000 mg PO DAILY 07/06/17 Ubidecarenone/Vit E Acet [Co Q-10 100 mg Softgel] 1 each PO DAILY 07/06/17 Ibuprofen [Motrin -] 600 mg PO Q6H PRN #30 tablet 07/10/17 Levothyroxine [Synthroid -] 200 mcg PO DAILY 04/22/18
[2018-04-28] MEDS ORDERED: PT OWN MED DRAWER 7, Y5N ONE (21:43)
[2018-04-28] MEDS: ATORVASTATIN CA 80 MG TABLET (FP) PO SCH (22:11)
[2018-04-29] MEDS ORDERED: PT OWN MED DRAWER 7, Y5N ONE (06:05)
[2018-04-29] MEDS ORDERED: LEVOTHYROXINE NA 125 MCG TABLET (FP) ONE (06:05)
[2018-04-29] MEDS ORDERED: LEVOTHYROXINE NA 100 MCG TABLET (FP) ONE (06:05)
[2018-04-29] MEDS: INSULIN SLIDING SCALE (NOVOLOG) 1 VIAL SQ SCH (06:28)
[2018-04-29] MEDS: LEVOTHYROXINE 125 MCG, LEVOTHYROXINE 100 MCG PO SCH (06:28)
[2018-04-29] MEDS ORDERED: cefTRIAXone SODIUM 1 GM VIAL ONE (08:36)
[2018-04-29] MEDS ORDERED: DEXTROSE 5%-WATER - 50 ML IVPB ONE (08:36)
[2018-04-29] MEDS: SPIRONOLACTONE 25 MG TABLET (FP) PO SCH (09:40)
[2018-04-29] MEDS: ALPRAZolam 0.25 MG TABLET PO SCH (09:40)
[2018-04-29] MEDS: FUROSEMIDE 40 MG TABLET (FP) PO SCH (09:40)
[2018-04-29] MEDS: PHENYTOIN NA EXTENDED 100 MG CAPSULE (FP) PO SCH (09:41)
[2018-04-29] MEDS: DOCUSATE SODIUM 100 MG CAPSULE (FP) PO SCH (09:41)
[2018-04-29] MEDS: AMIODARONE HCL 200 MG TABLET (FP) PO SCH (09:42)
[2018-04-29] MEDS: VALSARTAN 40 MG TABLET (FP) PO SCH (09:42)
[2018-04-29] MEDS: ASPIRIN COATED 81 MG TABLET.EC PO SCH (09:42)
[2018-04-29] MEDS: APIXABAN 5 MG TABLET PO SCH (09:42)
[2018-04-29] MEDS: CARVEDILOL 6.25 MG TABLET (FP) PO SCH (09:42)
[2018-04-29] MEDS: DICLOXACILLIN SODIUM 250 MG CAPSULE PO SCH (09:43)
[2018-04-29] MEDS: CEFTRIAXONE 1 GM in DEXTROSE 5%-WATER - 50 ML IVPB SCH (09:44)
--- NOTE | 2018-04-29 10:21 | PN ---
Progress Note (short form) - Note Progress Note: Chief Complaint: Events noted, notes reviewed, denies any chest pain, dyspnea improved History of Present Illness: Seen and examined on telemetry. Events noted, notes reviewed, denies any chest pain, dyspnea improved Echocardiography revealed moderate reduction in LV systolic function, mild reduction in RV systolic function, moderate MR, mild to moderate TR and severe pulmonary HTN - Current Medication List Current Medications: Current Medications Alprazolam (Xanax -) 1 mg PO BID [facility] Last Admin: 04/29/18 09:40 Dose: 1 mg Amiodarone HCl (Cordarone -) 200 mg PO DAILY [facility] Last Admin: 04/29/18 09:42 Dose: 200 mg Apixaban (Eliquis -) 5 mg PO BID [facility] Last Admin: 04/29/18 09:42 Dose: 5 mg Aspirin (Ecotrin -) 81 mg PO DAILY [facility] Last Admin: 04/29/18 09:42 Dose: 81 mg Atorvastatin Calcium (Lipitor -) 80 mg PO HS [facility] Last Admin: 04/28/18 22:11 Dose: 80 mg Carvedilol (Coreg -) 6.25 mg PO BID [facility] Last Admin: 04/29/18 09:42 Dose: 6.25 mg Dicloxacillin Sodium (Dynapen -) 500 mg PO BID [facility] Last Admin: 04/29/18 09:43 Dose: 500 mg Docusate Sodium (Colace -) 100 mg PO BID [facility] Last Admin: 04/29/18 09:41 Dose: 100 mg Furosemide (Lasix -) 40 mg PO DAILY [facility] Last Admin: 04/29/18 09:40 Dose: 40 mg Ceftriaxone Sodium 1 gm/ (Dextrose) 50 mls @ 100 mls/hr IVPB DAILY [facility]; Protocol Last Admin: 04/29/18 09:44 Dose: 100 mls/hr Insulin Aspart (Novolog Vial Sliding Scale -) 0 vial SQ ACHS [facility]; Protocol Last Admin: 04/29/18 06:28 Dose: Not Given Levothyroxine Sodium 125 mcg/ (Levothyroxine Sodium 100 mcg) 225 mcg PO DAILY@ 0700 [facility] Last Admin: 04/29/18 06:28 Dose: 225 mcg Phenytoin Sodium (Dilantin -) 200 mg PO BID [facility] Last Admin: 04/29/18 09:41 Dose: 200 mg Spironolactone (Aldactone -) 25 mg PO DAILY [facility] Last Admin: 04/29/18 09:40 Dose: 25 mg Valsartan (Diovan -) 80 mg PO DAILY [facility] Last Admin: 04/29/18 09:42 Dose: 80 mg Review of Systems Cardiovascular: As noted above Respiratory: denies: denies: Cough or Sputum Production Gastrointestinal: denies: Nausea, Vomiting, Diarrhea, Constipation or Abdominal Discomfort Musculoskeletal: No Symptoms Reported other than Lymphedema Endocrine: No Symptoms Reported - Objective Vital Signs: Last Vital Signs Temp Pulse Resp BP Pulse Ox 97.8 F 59 L 20 112/70 98 04/29/18 05:50 04/29/18 05:50 04/29/18 05:50 04/29/18 05:50 04/28/18 21:00 Intake & Output 04/26/18 04/27/18 04/28/18 04/29/18 23:59 23:59 23:59 23:59 Intake Total 450 540 300 10 Output Total 700 1900 200 Balance -250 -1360 100 10 Weight 228 lb 226 lb 6.4 oz 226 lb 223 lb 12.8 oz Constitutional: No Distress, Calm Neck: Supple Cardiovascular: S1 S2 Regular Rate and Rhythm Respiratory: Diminished Gastrointestinal: soft Benign Normal Bowel Sounds Ext: Edema Labs: CBC, BMP 04/26/18 05:15 04/28/18 05:30 Assessment/Plan ASSESSMENT: 1. CAD post CABG, angina pectoris 2. Chronic class I-II NYHA classification LV systolic/diastolic failure with pulmonary HTN 3. Chest pain syndrome 4. HTN 5. Hypercholesterolemia 6. Paroxysmal atrial fibrillation post DC cardioversion, [id number] score of 5 on A/C 7. Hypothyroidism 8. Seizure disorder and history of meningioma 9. CKD 10. Anemia 11. Chronic bilateral lymphedema PLAN: 1. Continue Lasix and Spirinolactone with caution and close monitoring of renal function 2. continue Eliquis (if agreeable to continue therapy) with caution and close monitoring of CBC 3. Continue ASA with caution, but detention since CAD is stable may D/C ASA therapy 4. Continue Carvedilol 5. Continue Diovan 6. Continue Amiodarone 7. Continue Lipitor 8. Patient can be D/C from the cardiovascular point of view and advised F/U in the office Joseph Silvestre MD
[2018-04-29 14:00] VITALS: BP 120/82; PULSE 68; TEMP 98
== END 2018-04-29 10:47 | DRG 292 ==
LOC: JER 08:30 → JERBED 10:14 → J4W 20:14
PROVIDERS: ADMIT Internal Medicine; ATTEND Internal Medicine
DX: I11.0 Hypertensive heart disease with heart failure (principal); N17.9 Acute kidney failure, unspecified; N39.0 Urinary tract infection, site not specified; I25.10 Atherosclerotic heart disease of native coronary artery without angina pectoris; I50.43 Acute on chronic combined systolic (congestive) and diastolic (congestive) heart failure; E11.649 Type 2 diabetes mellitus with hypoglycemia without coma; Z95.1 Presence of aortocoronary bypass graft; F41.9 Anxiety disorder, unspecified; Z79.4 Long term (current) use of insulin; E03.9 Hypothyroidism, unspecified; Z87.891 Personal history of nicotine dependence; E11.42 Type 2 diabetes mellitus with diabetic polyneuropathy; D64.9 Anemia, unspecified; E78.00 Pure hypercholesterolemia, unspecified; I48.0 Paroxysmal atrial fibrillation; R26.81 Unsteadiness on feet; I27.20 Pulmonary hypertension, unspecified; G40.909 Epilepsy, unspecified, not intractable, without status epilepticus; R80.9 Proteinuria, unspecified; I89.0 Lymphedema, not elsewhere classified; R29.6 Repeated falls
CPT/HCPCS: 36415; 71045-TC-FY; 80048; 80053; 80162; 80185; 81003; 81015; 82550; 82553; 82962; 83735; 83880; 84439; 84443; 84484; 85025; 85610; 85730; 86850; 86900; 86901; 87086; 87186; 93005; 93010; 93306-TC; 97116-GP; 97162-GP; 99285-25

== ENCOUNTER 2018-12-12 16:17 | Inpatient (IN) | payer OTHER, BC ==
--- NOTE | 2018-12-12 16:47 | PDOC ---
History of Present Illness - General Stated Complaint: FALL History Source: Patient Exam Limitations: No Limitations - History of Present Illness Initial Comments: 12/12/18 17:08 78 yo M with a hx of CAD s/p CABG (1998), DM, HTN, HLD, chronic lymphedema, and frequent falls presents to the emergency department s/p fall this morning. 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 Per the patient, he denies LOC and head trauma. Incidentally, he fell 2 weeks ago when going to the bathroom and struck his left eyebrow sustaining a cut. Denies the following: fever, chills, nausea, vomiting, chest pain, SOB, visual changes, FND, ears/nose /throat pain, abdominal pain, dysuria, hematuria, and leg pain. Allergies: NKDA Social: Denies tobacco, alcohol, and substance abuse. Past History - Past Medical History Allergies/Adverse Reactions: Allergies Allergy/AdvReac Type Severity Reaction Status Date / Time No Known Drug Allergies Allergy Verified 12/12/18 17:03 Home Medications: Ambulatory Orders Amiodarone HCl [Cordarone -] 300 mg PO DAILY 08/25/13 Ascorbic Acid [Vitamin C] 1,000 mg PO DAILY 08/25/13 Aspirin Coated [Ecotrin -] 81 mg PO DAILY 08/25/13 Atorvastatin Ca [Lipitor] 80 mg PO HS 08/25/13 Carvedilol [Coreg -] 6.25 mg PO BID 08/25/13 Dicloxacillin Sodium 500 mg PO TID 08/25/13 Flaxseed Oil 1,000 mg PO DAILY 08/25/13 Folic Acid 0.8 mg PO DAILY 08/25/13 Insulin Glargine,Hum.rec.anlog [Lantus (10mL VIAL) -] 10 units SQ HS 08/25/13 Magnesium 30 mg PO DAILY 08/25/13 Phenytoin Sodium Extended [Phenytek] 300 mg PO BID 08/25/13 Potassium Chloride [K-Tab] 10 meq PO DAILY 08/25/13 Pyridoxine HCl (B-6) [Vitamin B6 -] 50 mg PO DAILY 08/25/13 Zinc 50 mg PO DAILY 08/25/13 Insulin Lispro [Humalog] 0 unit SQ TID 08/26/13 Alprazolam [Xanax] 1 mg PO BID 07/06/17 Cyanocobalamin [Vitamin B12 -] 1,000 mcg PO DAILY 07/06/17 Docusate Sodium [Colace -] 100 mg PO BID 07/06/17 [place]-3 Fatty Acids [[place]-3] 1,000 mg PO DAILY 07/06/17 Ubidecarenone/Vit E Acet [Co Q-10 100 mg Softgel] 1 each PO DAILY 07/06/17 Cefuroxime Axetil [Ceftin -] 500 mg PO Q12H #8 tablet 04/28/18 Levothyroxine [Synthroid -] 225 mcg PO DAILY@0700 #30 tablet 04/28/18 Spironolactone [Aldactone -] 25 mg PO DAILY #30 tablet 04/28/18 Furosemide [Lasix -] 40 mg PO BID 12/13/18 Cancer: Yes (brain tumor) Cardiac Disorders: Yes (bypass sx) COPD: No CHF: Yes Diabetes: Yes HTN: Yes Hypercholesterolemia: Yes Thyroid Disease: Yes (HYPO) - Surgical History Appendectomy: Yes Cardiac Surgery: Yes (CABG) Neurologic Surgery: Yes (MENINGIOMA REMOVED) - Suicide/Smoking/Psychosocial Hx Smoking History: Former smoker Have you smoked in the past 12 months: No If you are a former smoker, when did you quit?: 40YRS AGO Hx Alcohol Use: Yes (OCCAS) Drug/Substance Use Hx: No Substance Use Type: Alcohol Hx Substance Use Treatment: No Review of Systems - Review of Systems Able to Perform ROS?: Yes Is the patient limited [place] proficient: No Constitutional: No: Chills, Diaphoresis, Fever, Weakness HEENTM: No: Blurred Vision, Recent change in vision, Ear Pain, Nose Pain, Throat Pain, Mouth Pain Respiratory: No: Cough, Shortness of Breath, SOB with Exertion, Hemoptysis Cardiac (ROS): No: Chest Pain, Lightheadedness, Palpitations, Syncope, Chest Tightness ABD/GI: No: Constipated, Diarrhea, Nausea, Rectal Bleeding, Vomiting, Tarry Stools : No: Burning, Dysuria, Hematuria Musculoskeletal: Yes: Joint Pain (left hip). No: Back Pain, Neck Pain Integumentary: No: Dryness, Erythema, Rash, Sweating Neurological: No: Headache, Numbness, Tingling, Tremors, Ataxia Psychiatric: No: Change in Appetite Endocrine: No: Unexplained Weight Gain Hematologic/Lymphatic: No: Anemia *Physical Exam - Physical Exam General Appearance: Yes: Nourished, Appropriately Dressed. No: Apparent Distress, Intoxicated HEENT: positive: EOMI, COURTNEY, Normal ENT Inspection, Normal Voice, Symmetrical, TMs Normal, Pharynx Normal, Hearing Grossly Normal. negative: Pale Conjunctivae , Scleral Icterus (R), Scleral Icterus (L), Muffled/Hoarse voice, Pharyngeal Erythema, Tonsillar Exudate, Tonsillar Erythema, Nasal Congestion, Rhinorrhea, Excessive drooling Neck: positive: Trachea midline, Supple. negative: Tender, Lymphadenopathy (R) , Lymphadenopathy (L), Tender lateral, Tender midline Respiratory/Chest: positive: Lungs Clear, Normal Breath Sounds. negative: Chest Tender, Respiratory Distress, Accessory Muscle Use, Paradoxal Breathing, Crackles, Rales, Rhonchi, Stridor Cardiovascular: positive: Regular Rhythm, Regular Rate, S1, S2. negative: Systolic Murmur Gastrointestinal/Abdominal: positive: Normal Bowel Sounds, Flat, Soft. negative : Tender, Distended, Tenderness, Hernia Lymphatic: negative: Adenopathy Musculoskeletal: positive: Normal Inspection. negative: CVA Tenderness, Decreased Range of Motion Extremity: positive: Other (patient has pain in the left intertrochanteric region and limited ROM of the left hip with pain on ROM. 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 Initial vitals: Initial Vital Signs Temp Pulse Resp BP Pulse Ox 97.4 F L 98 H 16 98/60 97 12/12/18 16:20 12/12/18 16:20 12/12/18 16:20 12/12/18 16:20 12/12/18 16:20 Work up: ddx: femur vs pelvic ring fracture orders: hip and femur xray xray showed greater left intertrochanteric fracture. a call was placed for consult to Dr. Harley who requested pre-op labs and an mri of the pelvis without contrast. patient was signed out to Dr. Mosqueda. Dispo: Signed out to Dr. Mosqueda. *DC/Admit/Observation/Transfer Diagnosis at time of Disposition: Intertrochanteric fracture Qualifiers: Encounter type: initial encounter Fracture type: closed Fracture alignment: nondisplaced Laterality: left Qualified Code(s): S72.145A - Nondisplaced intertrochanteric fracture of left femur, initial encounter for closed fracture - Referrals - Patient Instructions - Post Discharge Activity
[2018-12-12 17:03] VITALS: BMI 26.4
--- NOTE | 2018-12-12 18:46 | PDOC ---
Attending Attestation - Resident Resident Name: Mega Frey - ED Attending Attestation I have performed the following: I have examined & evaluated the patient, The case was reviewed & discussed with the resident, I agree w/resident's findings & plan, Exceptions are as noted - Medical Decision Making 12/12/18 18:46 A portion of this note was documented by scribe services under my direction. I have reviewed the details of the note, within reason, and agree with the documentation with the following case summary and management plan written by me. Patient treated in the ED. Nursing notes are reviewed and incorporated into the medical decision-making. Vital signs reviewed. Peripheral IV access obtained by the nurse, laboratory studies are drawn and sent, reviewed and interpreted by myself. Vital Signs Temp Pulse Resp BP Pulse Ox 97.4 F L 98 H 16 98/60 97 12/12/18 16:20 12/12/18 16:20 12/12/18 16:20 12/12/18 16:20 12/12/18 16:20 78-year-old male with history of coronary disease status post CABG, diabetes, hypertension, hyperlipidemia, chronic lymphedema presents with mechanical fall. The patient fell and landed on his left hip. Denies head injury or loss of consciousness. States that he was unable to get up to call 911. Patient complains about pain along the left greater trochanter. Denies any numbness or weakness. The patient is neurovascular intact. Xray reviewed by me, pending official radiology read demonstrates a greater trochanter fracture. Pt walks with a walker at baseline. Unable to ambulate secondary to fracture. Consult ortho. Admit <Andrés Martinez - Last Filed: 12/12/18 18:45> - HPI HPI: 12/12/18 18:47 The patient is a 78 year old male, with a significant PMH of congestive heart failure, BLE lymphedema, IDDM, coronary artery disease s/p 4-vessel CABG, parietal meningioma resection in 2001, anxiety, atrial fibrillation, hypertension, hyperlipidemia, hypothyroidism, tobacco use (smoker), frequent falls, who presents to the emergency department for evaluation s/p fall this morning. 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 The patient denies any head strike/ injury or loss of consciousness. The patient denies any preceding chest pain, SOB, palpitations, nausea, diaphoresis, lightheadedness or dizziness. The patient endorses left hip pain secondary to the fall. The patient denies chest pain, shortness of breath, headache and dizziness. Denies fever, chills, nausea, vomit, diarrhea and constipation. Denies dysuria, frequency, urgency and hematuria. Allergies: NKDA Documentation prepared by Nicolas Hampton, acting as medical equipment repair technician for Andrés Martinez MD. - Physicial Exam PE: 12/12/18 18:49 GENERAL: Awake, alert, and fully oriented, in no acute distress HEAD: No signs of trauma EYES: PERRLA, EOMI, sclera anicteric, conjunctiva clear ENT: Auricles normal inspection, hearing grossly normal, nares patent. Moist mucosa NECK: Normal ROM, supple, no lymphadenopathy, JVD, or masses ABDOMEN: Soft, nontender. No guarding, no rebound. No masses EXTREMITIES: (+) Tenderness to palpation left greater trochanter. (+) Unable to flex hip secondary to pain. (+) Chronic lymph edema bilaterally. Sensation intact throughout. NEUROLOGICAL: Cranial nerves II through XII grossly intact. Normal speech. SKIN: Warm, Dry, normal turgor, no rashes or lesions noted. <Nicolas Hampton - Last Filed: 12/12/18 18:51>
[2018-12-12 20:06] LABS: INR 1.02 (0.83-1.09)
[2018-12-12 20:08] LABS: BASO % 0.6 % (0-2.0); EOS % 0.9 % (0-4.5); HEMATOCRIT 36.2 % (35.4-49); HEMOGLOBIN 12.7 GM/dL (11.7-16.9); LYMPH % 7.7 % (8-40); MCH 31.7 pg (25.7-33.7); MCHC 35.1 g/dl (32.0-35.9); MEAN CELL VOLUME 90.4 fl (80-96); MEAN PLT VOLUME 8.5 fl (7.5-11.1); MONO % 15.1 % (3.8-10.2); NEUT % 75.7 % (42.8-82.8); PLATELET COUNT 184 K/MM3 (134-434); WHITE BLOOD COUNT 10.8 K/mm3 (4.0-10.0)
[2018-12-12 20:09] LABS: ACTIVATED PTT 25.7 SECONDS (25.2-36.5)
[2018-12-12 20:31] LABS: ALBUMIN 3.6 g/dl (3.4-5.0); ALK PHOS 185 U/L (45-117); ANION GAP 7 MMOL/L (8-16); BILIRUBIN,TOTAL 0.7 mg/dL (0.2-1); BLOOD UREA NITROGEN 77 mg/dL (7-18); CALCIUM 8.9 mg/dL (8.5-10.1); CHLORIDE 84 mmol/L (98-107); CO2 41 mmol/L (21-32); CREATININE 1.5 mg/dL (0.55-1.3); GLUCOSE,RANDOM 122 mg/dL (74-106); SGOT/AST 40 U/L (15-37); SGPT/ALT 39 U/L (13-61); SODIUM 132 mmol/L (136-145)
[2018-12-12] MEDS ORDERED: POTASSIUM CHLORIDE TABS 20 MEQ TABLET.ER (FP) PO ONE ×3 (20:36→21:47)
[2018-12-12 20:37] LABS: POTASSIUM 2.3 mmol/L (3.5-5.1)
--- NOTE | 2018-12-12 20:41 | PDOC ---
*Physical Exam - Vital Signs Last Vital Signs Temp Pulse Resp BP Pulse Ox 98.1 F 72 20 100/62 98 12/12/18 18:57 12/12/18 18:57 12/12/18 18:57 12/12/18 18:57 12/12/18 18:57 ED Treatment Course - LABORATORY CBC & Chemistry Diagram: 12/12/18 19:40 12/12/18 19:40 - ADDITIONAL ORDERS Additional order review: Laboratory Results 12/12/18 12/12/18 19:40 19:40 PT with INR 12.00 INR 1.02 PTT (Actin FS) 25.7 Sodium 132 L Potassium 2.3 L* Chloride 84 L Carbon Dioxide 41 H Anion Gap 7 L BUN 77 H Creatinine 1.5 H Creat Clearance w eGFR 45.26 Random Glucose 122 H Calcium 8.9 Total Bilirubin 0.7 AST 40 H ALT 39 Alkaline Phosphatase 185 H Total Protein 7.0 Albumin 3.6 12/12/18 19:40 RBC 4.00 MCV 90.4 MCHC 35.1 RDW 18.0 H MPV 8.5 Neutrophils % 75.7 D Lymphocytes % 7.7 L D Monocytes % 15.1 H Eosinophils % 0.9 Basophils % 0.6 Medical Decision Making - Medical Decision Making 12/12/18 19:06 The patient was signed out to me by Dr. Frey. The patient is a 78M who had a mechanical fall and now has an intertrochanteric fracture. MRI pending d/t patient having "brain clips". Ortho paged for notification. CMP significant for K of 2.3. Will give k-dur in intermittent doses to prevent nausea and vomiting. 12/12/18 20:58 Ortho informed. Ortho requests CT. CT order placed. 12/12/18 22:[address] Hart for admission. *DC/Admit/Observation/Transfer Diagnosis at time of Disposition: Intertrochanteric fracture Qualifiers: Encounter type: initial encounter Fracture type: closed Fracture alignment: nondisplaced Laterality: left Qualified Code(s): S72.145A - Nondisplaced intertrochanteric fracture of left femur, initial encounter for closed fracture - Discharge Dispostion Condition at time of disposition: Guarded Decision to Admit order: Yes - Referrals Referrals: Mika Flaherty MD [Primary Care Provider] - - Patient Instructions - Post Discharge Activity
[2018-12-12] MEDS ORDERED: MAGNESIUM SULF 50% (8.12 MEQ/2 ML-1 GM VIAL) IVPB ONE (20:43)
[2018-12-12] MEDS ORDERED: MAGNESIUM 1GM/D5W - 1 GM/100 ML IVPB IVPB ONE (21:10)
--- NOTE | 2018-12-12 23:03 | CONSULT ---
Consult - text type - Consultation Consultation Note: ORTHOPEDIC SURGERY CONSULTATION NOTE Department of Orthopedic Surgery HISTORY OF PRESENT ILLNESS Ray Lackey is a 78 year old male with a PMH of CAD s/p CABG, DM, HTN, HLD, chronic lymphedema, and chronic osteomyelitis of the left tibia. He presents to [facility] with left hip pain. The orthopedic service was consulted for a greater trochanteric fracture. The injury occurred today after a mechanical fall. The patient notes pain to the left hip. Denies any head trauma, LOC or other injuries. Denies numbness, tingling or other constitutional complaints. The patient lives at home with an aide uses a rolling walker at baseline. The patient has a history of chronic osteomyelitis of the left leg being treated with suppressive antibiotics.. 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 Hx Alcohol Use Yes: OCCAS History of Substance Use None Allergies Allergy/AdvReac Type Severity Reaction Status Date / Time No Known Drug Allergies Allergy Verified 12/12/18 17:03 Active Medications Generic Name Dose Route Start Last Admin Trade Name Freq PRN Reason Stop Dose Admin Potassium Chloride 10 meq in 100 mls @ 100 mls/hr 12/12/18 22:00 Potassium Chloride 10 Meq Premix Ivpb - IVPB 12/13/18 00:59 Q60M [facility] HISTORY Unknown/Noncontributory REVIEW OF SYMPTOMS A twelve-point review of systems was performed and was negative except as noted in HPI. PHYSICAL EXAM Constitutional: Alert and oriented to person, place, and time. No acute distress , appropriate mood and affect. Right Upper Extremity: Right dorsal forearm skin tear and bruising. This is dressed with xeroform and kerlex. Muscle mass equal and symmetric to contralateral side. No masses or effusions noted. No tenderness to palpation. Full passive and active ROM, free from pain. Joints stable with no pathologic laxity. M/R/U/MSK/AX motor intact; SILT distally; 2+ radial pulses; Cap refill brisk. Tone and reflexes normal. Left Upper Extremity: Skin warm, dry, and intact. Muscle mass equal and symmetric to contralateral side. No masses or effusions noted. No tenderness to palpation. Full passive and active ROM, free from pain. Joints stable with no pathologic laxity. M/R/U/MSK/AX motor intact; SILT distally; 2+ radial pulses; Cap refill brisk. Tone and reflexes normal. Right Lower Extremity: Leg swelling. Hypertrophic scab anterior leg. Muscle mass equal and symmetric to contralateral side. No tenderness to palpation. No cords or calf tenderness. Full passive and active ROM, free from pain. Joints stable with no pathologic laxity. Unable to move foot or toes. SILT distally; 2 + DP pulses; Cap refill brisk. Tone and reflexes normal. Left Lower Extremity: Leg swelling. Hypertrophic scab posterior leg. Muscle mass equal and symmetric to contralateral side. No masses or effusions noted. Tender to palpation left greater trochanter; nontender throughout rest of extremity. No cords or calf tenderness. Negative log roll. Able to SLR. No pain with passive hip range of motion. EHL/TA/GS motor intact; SILT distally; 2+ DP pulses; Cap refill brisk. Tone and reflexes normal. Vital Signs (last) Temp Pulse Resp BP Pulse Ox 98.6 F 70 22 H 118/64 100 12/12/18 19:23 12/12/18 19:23 12/12/18 19:23 12/12/18 19:23 12/12/18 19:23 Intake and Output 12/10/18 12/11/18 12/12/18 23:59 23:59 23:59 Other: Weight 190 lb Height 5 ft 11 in Body Mass Index (BMI) 26.4 Laboratory 12/12/18 19:40 12/12/18 19:40 PT with INR 12.00 SEC (9.7-13.0) 12/12/18 19:40 PTT (Actin FS) 25.7 SECONDS (25.2-36.5) 12/12/18 19:40 IMAGING I personally reviewed all radiographs, CT, and other imaging. They demonstrate a left greater trochanteric hip fracture with no definitive intertrochanteric extension. ASSESSMENT AND PLAN Ray Lackey is a 78 year old male presenting status post mechanical fall with a left sided greater trochanteric fracture. There is no definitive intertrochanteric extention seen on CT; MRI will be useful in evaluating this if there are no contraindications. The patient also has a history of chronic osteomyelitis of the left tibia and is being treated on chronic suppressive antibiotics. We have reviewed the imaging and clinical findings in detail, as well as their potential implications. - MRI Pelvis to rule out intertrochanteric extension (if no contraindication) - Wound care consult - Pain control: Transition to oral pain medications, minimize narcotic use - DVT prophylaxis - Continue antibiotics for chronic osteomyelitis - Ice/Elevation - Elevate HOB, encourage oral intake - Appreciate medical management (Nutrition optimization, decubitus precautions heel/sacrum) All questions were answered. Thank you for involving our team in the care of this patient. Will continue to follow. [phone]. Shad Harley, DO Orthopedic Surgery
--- NOTE | 2018-12-12 23:55 | HP ---
CHIEF COMPLAINT: Fall, hip pain PCP: Dr. Flaherty (goes to Dr. Todd/Dr. Ortiz) HISTORY OF PRESENT ILLNESS: Thank you Dr. Henson for allowing us to take part in the ongoing care of your patient. Pt with PMH as stated presents to the ER with a CC of L-hip pain after a mechanical fall. He denies any prodromal or syncopal sx. He fell on his L-hip and was down for aproximately 1 hour before he was able to be helped up and was subsequentially brought to the hospital for further treatment. He was noted to have a L-greater trochanteric fracture on XR; orthopedic sgy was called and they recommended XR of the area where he is being treated for chronic osteomyelitis as well as CT (given that questionable MRI compatability with his hardware in his skull). CT shows the fracture but mentions that MRI will be advisable given the anatomy and risks. Will discuss further with radiology and preform MRI if can be done. He may eat tonight. Med reconciliation pending; the list we had in our system quite inaccurate. Daughter mentions that he may need placed after this and has some difficulty taking care of himself at home. of further note is that the patient has had quite poor PO intake for some time and is found to have a very low K at 2.2; he also is noted to have a mild TRUDY with Cr 1.4 which is above his baseline of ~1. He is slightly hyponatremic, as well. PAST MEDICAL HISTORY: CAD s/p remote CABG, DM, HTN, HLD, Chronic Lymphedema, Chronic osteomyelitis, meningioma (recurring) PAST SURGICAL HISTORY: Meningioma resection, metal plates in head Social History: Former smoker; denies EtOH abuse. Some difficulty taking care of self at home and may need ASSISTED per family Family History: Asked and noncontributory Allergies No Known Drug Allergies Allergy (Verified 12/12/18 17:03) HOME MEDICATIONS: Home Medications Medication Instructions Recorded Amiodarone HCl [Cordarone -] 300 mg PO DAILY 08/25/13 Ascorbic Acid [Vitamin C] 1,000 mg PO DAILY 08/25/13 Aspirin Coated [Ecotrin -] 81 mg PO DAILY 08/25/13 Atorvastatin Ca [Lipitor] 80 mg PO HS 08/25/13 Carvedilol [Coreg -] 6.25 mg PO BID 08/25/13 Dicloxacillin Sodium 500 mg PO TID 08/25/13 Flaxseed Oil 1,000 mg PO DAILY 08/25/13 Folic Acid 0.8 mg PO DAILY 08/25/13 Insulin Glargine,Hum.rec.anlog 20 units SQ HS 08/25/13 [Lantus (10mL VIAL) -] Magnesium 30 mg PO DAILY 08/25/13 Phenytoin Sodium Extended 300 mg PO BID 08/25/13 [Phenytek] Potassium Chloride [K-Tab] 10 meq PO DAILY 08/25/13 Pyridoxine HCl (B-6) [Vitamin B6 -] 50 mg PO DAILY 08/25/13 Zinc 50 mg PO DAILY 08/25/13 Insulin Lispro [Humalog] 0 unit SQ TID 08/26/13 Alprazolam [Xanax] 1 mg PO BID 07/06/17 Cyanocobalamin [Vitamin B12 -] 1,000 mcg PO DAILY 07/06/17 Docusate Sodium [Colace -] 100 mg PO BID 07/06/17 [place]-3 Fatty Acids [[place]-3] 1,000 mg PO DAILY 07/06/17 Ubidecarenone/Vit E Acet [Co Q-10 1 each PO DAILY 07/06/17 100 mg Softgel] Cefuroxime Axetil [Ceftin -] 500 mg PO Q12H #8 tablet 04/28/18 Furosemide [Lasix -] 40 mg PO DAILY #0 tab 04/28/18 Levothyroxine [Synthroid -] 225 mcg PO DAILY@0700 #30 tablet 04/28/18 Spironolactone [Aldactone -] 25 mg PO DAILY #30 tablet 04/28/18 REVIEW OF SYSTEMS 10 sys ROS done and negative aside from HPI PHYSICAL EXAMINATION Vital Signs - 24 hr 12/12/18 12/12/18 12/12/18 16:20 18:57 19:23 Temperature 97.4 F L 98.1 F 98.6 F Pulse Rate 98 H Pulse Rate [ 72 70 Apical] Respiratory 16 20 22 H Rate Blood Pressure 98/60 Blood Pressure 100/62 118/64 [Right Arm] O2 Sat by Pulse 97 98 100 Oximetry (%) 12/12/18 22:59 Temperature 98.9 F Pulse Rate Pulse Rate [ 81 Apical] Respiratory 18 Rate Blood Pressure Blood Pressure 114/69 [Right Arm] O2 Sat by Pulse 98 Oximetry (%) GENERAL: Awake, alert, and fully oriented, in no acute distress. HEAD: Normal with no signs of trauma. EYES: Pupils equal, round and reactive to light, extraocular movements intact EARS, NOSE, THROAT: Ears normal, nares patent, oropharynx clear without exudates. NECK: Normal range of motion, supple without lymphadenopathy, JVD, or masses. LUNGS: Breath sounds equal, clear to auscultation bilaterally. HEART: Regular rate and rhythm, normal S1 and S2 without murmur, rub or gallop. ABDOMEN: Soft, nontender, not distended, normoactive bowel sounds, no guarding, no rebound, no masses. MUSCULOSKELETAL: Normal range of motion at all joints aside from L-hip. Lymphedema L>R noted. NEUROLOGICAL: Cranial nerves II-XII intact. Normal speech. Normal gait. PSYCHIATRIC: Cooperative. Good eye contact. Appropriate mood and affect. SKIN: Warm, dry, normal turgor, some scabbing, etc. on the lower extremity Laboratory Results - last 24 hr 12/12/18 12/12/18 12/12/18 19:40 19:40 19:40 WBC 10.8 H RBC 4.00 Hgb 12.7 Hct 36.2 MCV 90.4 MCH 31.7 MCHC 35.1 RDW 18.0 H Plt Count 184 D MPV 8.5 Absolute Neuts (auto) 8.2 H Neutrophils % 75.7 D Lymphocytes % 7.7 L D Monocytes % 15.1 H Eosinophils % 0.9 Basophils % 0.6 Nucleated RBC % 0 PT with INR 12.00 INR 1.02 PTT (Actin FS) 25.7 Sodium 132 L Potassium 2.3 L* Chloride 84 L Carbon Dioxide 41 H Anion Gap 7 L BUN 77 H Creatinine 1.5 H Creat Clearance w eGFR 45.26 POC Glucometer Random Glucose 122 H Calcium 8.9 Total Bilirubin 0.7 AST 40 H ALT 39 Alkaline Phosphatase 185 H Total Protein 7.0 Albumin 3.6 Blood Type Antibody Screen 12/12/18 12/12/18 19:46 21:14 WBC RBC Hgb Hct MCV MCH MCHC RDW Plt Count MPV Absolute Neuts (auto) Neutrophils % Lymphocytes % Monocytes % Eosinophils % Basophils % Nucleated RBC % PT with INR INR PTT (Actin FS) Sodium Potassium Chloride Carbon Dioxide Anion Gap BUN Creatinine Creat Clearance w eGFR POC Glucometer 152 Random Glucose Calcium Total Bilirubin AST ALT Alkaline Phosphatase Total Protein Albumin Blood Type O POSITIVE Antibody Screen Negative ASSESSMENT/PLAN: Presents with L-greater trochanteric fx, TRUDY 1) L-greater trochanteric fracture -Noted on imaging; defering further treatment and diagnostics to ortho -MRI in AM providing his hardware is compatible. -NWB, NPO after MRI -Pain control with PRN oxycodone; add bowel regimine 2) Marked Hypokalemia -Given 40 PO in the ER; I gave additional 20 PO and 30 IV and am rechecking now (I believe based on MAR times that my repeat lab was drawn before the full K infusions given so will keep that in mind). -Monitoring on tele overnight given severe elyte changes -Check again in AM and PRN replete; no rhythm changes, etc. 3) Mild TRUDY -History supports a prerenal etiology; he is also on nephrotoxic medications and is at risk of developing CKD given his hx. Will empirically hydrate overnight. If not improved check FeUrea and consider nephrology consult. Holding lasix for now; can restart in AM if improved. 4) Mild Hyponatremia -Checking osms and urine Na 5) Hx CAD s/p CABG -Continue home meds; monitor. Nonacute 6) DM -Home basal and SSI 7) HTN -Continue home medications; monitor lyes 8) Hx Osteomyelitis -Has been on dicloxacillin for years but hasn't seen ID for a very long period of time. Continuing home meds but checking XR and consulting Dr. Carter for further recs 9) Onychomycosis -Consulting podiatry
[2018-12-13 00:20] LABS: ANION GAP 10 MMOL/L (8-16); BLOOD UREA NITROGEN 71 mg/dL (7-18); CALCIUM 8.5 mg/dL (8.5-10.1); CHLORIDE 83 mmol/L (98-107); CO2 39 mmol/L (21-32); CREATININE 1.3 mg/dL (0.55-1.3); GLUCOSE,RANDOM 169 mg/dL (74-106); SODIUM 132 mmol/L (136-145)
[2018-12-13 00:25] LABS: POTASSIUM 2.3 mmol/L (3.5-5.1)
[2018-12-13] MEDS ORDERED: LACTATED RINGERS SOLUTION 1,000 ML/1,000 ML INFUS.BAG IV SCH (00:30)
[2018-12-13] MEDS: KCL 10 MEQ IVPB 10 MEQ/100 ML INFUS.BAG IVPB SCH ×6 (01:00→13:17)
[2018-12-13] MEDS ORDERED: ALPRAZolam 2 MG TABLET PO SCH (01:15)
[2018-12-13] MEDS: DOCUSATE SODIUM 100 MG CAPSULE (FP) PO SCH ×3 (04:15→22:33)
[2018-12-13 06:56] LABS: BASO % 0.7 % (0-2.0); EOS % 0.7 % (0-4.5); HEMATOCRIT 33.8 % (35.4-49); HEMOGLOBIN 11.7 GM/dL (11.7-16.9); LYMPH % 10.1 % (8-40); MCH 31.3 pg (25.7-33.7); MCHC 34.7 g/dl (32.0-35.9); MEAN CELL VOLUME 90.3 fl (80-96); MONO % 15.1 % (3.8-10.2); NEUT % 73.4 % (42.8-82.8); PLATELET COUNT 168 K/MM3 (134-434); RBC 3.74 M/mm3 (4.00-5.60); RDW 17.9 % (11.9-15.9)
[2018-12-13] MEDS ORDERED: LEVOTHYROXINE NA 100 MCG TABLET (FP) PO SCH (07:00)
[2018-12-13] MEDS: INSULIN (LEVEMIR) 100 UNITS/ML UNITS SQ SCH ×2 (07:00→22:32)
[2018-12-13] MEDS: INSULIN SLIDING SCALE (NOVOLOG) 1 VIAL SQ SCH ×4 (07:01→22:32)
[2018-12-13] MEDS ORDERED: LEVOTHYROXINE NA 100 MCG TABLET (FP) ONE (07:05)
[2018-12-13] MEDS ORDERED: LEVOTHYROXINE NA 125 MCG TABLET (FP) ONE (07:05)
[2018-12-13] MEDS: LEVOTHYROXINE 100 MCG, LEVOTHYROXINE 125 MCG PO SCH (07:06)
[2018-12-13] MEDS: DICLOXACILLIN SODIUM 250 MG CAPSULE PO SCH ×3 (07:07→22:33)
[2018-12-13 07:25] LABS: INR 1.06 (0.83-1.09); PROTHROMBIN TIME (PATIENT) 12.5 SEC (9.7-13.0)
[2018-12-13 09:00] LABS: ANION GAP 8 MMOL/L (8-16); BLOOD UREA NITROGEN 61 mg/dL (7-18); CALCIUM 8.7 mg/dL (8.5-10.1); CHLORIDE 87 mmol/L (98-107); CO2 38 mmol/L (21-32); CREATININE 1.3 mg/dL (0.55-1.3); GLUCOSE,RANDOM 190 mg/dL (74-106); MAGNESIUM 3.3 mg/dL (1.8-2.4); SODIUM 133 mmol/L (136-145)
[2018-12-13 09:01] LABS: ALBUMIN 3.3 g/dl (3.4-5.0); ALK PHOS 163 U/L (45-117); BILIRUBIN,TOTAL 1.3 mg/dL (0.2-1); SGOT/AST 34 U/L (15-37); SGPT/ALT 33 U/L (13-61); TOT PROT 6.6 g/dl (6.4-8.2)
[2018-12-13] MEDS ORDERED: PT OWN MED DRAWER 7, Y5N ONE (09:16)
[2018-12-13 09:30] LABS: POTASSIUM 2.9 mmol/L (3.5-5.1)
[2018-12-13] MEDS ORDERED: AMMONIUM LACTATE 12% LOTION 225 GM BOTTLE TP PRN (09:30)
--- NOTE | 2018-12-13 09:30 | CONSULT ---
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: Peripheral Neuropathy, Other (meningioma) Cardio/Vascular: Yes: AFIB, CAD (s/p CABG), CHF, HTN, Hyperlipdemia Psych: Yes: Anxiety Musculoskeletal: Yes: Chronic low back pain Endocrine: Yes: Diabetes Mellitus, Hypothyroidism - Past Surgical History Past Surgical History: Yes: CABG - Alcohol/Substance Use Hx Alcohol Use: Yes (OCCAS) History of Substance Use: reports: None - Smoking History Smoking history: Former smoker Have you smoked in the past 12 months: No If you are a former smoker, when did you quit?: 40YRS AGO Home Medications - Allergies Allergies/Adverse Reactions: Allergies Allergy/AdvReac Type Severity Reaction Status Date / Time No Known Drug Allergies Allergy Verified 12/12/18 17:03 - Home Medications Home Medications: Ambulatory Orders Amiodarone HCl [Cordarone -] 300 mg PO DAILY 08/25/13 Ascorbic Acid [Vitamin C] 1,000 mg PO DAILY 08/25/13 Aspirin Coated [Ecotrin -] 81 mg PO DAILY 08/25/13 Atorvastatin Ca [Lipitor] 80 mg PO HS 08/25/13 Carvedilol [Coreg -] 6.25 mg PO BID 08/25/13 Dicloxacillin Sodium 500 mg PO TID 08/25/13 Flaxseed Oil 1,000 mg PO DAILY 08/25/13 Folic Acid 0.8 mg PO DAILY 08/25/13 Insulin Glargine,Hum.rec.anlog [Lantus (10mL VIAL) -] 10 units SQ HS 08/25/13 Magnesium 30 mg PO DAILY 08/25/13 Phenytoin Sodium Extended [Phenytek] 300 mg PO BID 08/25/13 Potassium Chloride [K-Tab] 10 meq PO DAILY 08/25/13 Pyridoxine HCl (B-6) [Vitamin B6 -] 50 mg PO DAILY 08/25/13 Zinc 50 mg PO DAILY 08/25/13 Insulin Lispro [Humalog] 0 unit SQ TID 08/26/13 Alprazolam [Xanax] 1 mg PO BID 09/02/17 Cyanocobalamin [Vitamin B12 -] 1,000 mcg PO DAILY 07/06/17 Docusate Sodium [Colace -] 100 mg PO BID 07/06/17 [place]-3 Fatty Acids [[place]-3] 1,000 mg PO DAILY 07/06/17 Ubidecarenone/Vit E Acet [Co Q-10 100 mg Softgel] 1 each PO DAILY 07/06/17 Cefuroxime Axetil [Ceftin -] 500 mg PO Q12H #8 tablet 04/28/18 Levothyroxine [Synthroid -] 225 mcg PO DAILY@0700 #30 tablet 04/28/18 Spironolactone [Aldactone -] 25 mg PO DAILY #30 tablet 04/28/18 Furosemide [Lasix -] 40 mg PO BID 12/13/18 Physical Exam Vital Signs: Vital Signs Temperature 98.5 F 12/13/18 00:00 Pulse Rate 75 12/13/18 06:00 Respiratory Rate 20 12/13/18 06:00 Blood Pressure 104/56 L 12/13/18 06:00 O2 Sat by Pulse Oximetry (%) 96 12/13/18 00:00 Extremities: Yes: Other (tender hypertrophic mycotic nails with subungual debris , +inflammed nail beds, +distal seperation of nail from bed, +xerosis b/l feet and legs, no open wounds noted) Labs: CBC, BMP 12/13/18 05:30 12/13/18 05:30 Assessment/Plan onychomycosis pain xerosis foot care q 8 weeks. debride nails in am need special nail clipper. ammonium lactate bid to lower extremitiees. would recommend use of nail softener for reduction of nail pain and thickness of toe nails.
--- NOTE | 2018-12-13 09:47 | PN ---
Progress Note (short form) - Note Progress Note: ORTHOPEDIC SURGERY PROGRESS NOTE Department of Orthopedic Surgery SUBJECTIVE No acute events overnight. No complaints currently. Denies chest pain, shortness of breath, or calf pain. No nausea or vomiting. Tolerating oral intake. Pain control difficult overnight, but improving. PHYSICAL EXAMINATION Constitutional: Alert and oriented to person, place, and time. No acute distress , appropriate mood and affect. Right Upper Extremity: Right dorsal forearm skin tear and bruising. This is dressed with xeroform and kerlex. Muscle mass equal and symmetric to contralateral side. No masses or effusions noted. No tenderness to palpation. Full passive and active ROM, free from pain. Joints stable with no pathologic laxity. M/R/U/MSK/AX motor intact; SILT distally; 2+ radial pulses; Cap refill brisk. Tone and reflexes normal. Left Upper Extremity: Skin warm, dry, and intact. Muscle mass equal and symmetric to contralateral side. No masses or effusions noted. No tenderness to palpation. Full passive and active ROM, free from pain. Joints stable with no pathologic laxity. M/R/U/MSK/AX motor intact; SILT distally; 2+ radial pulses; Cap refill brisk. Tone and reflexes normal. Right Lower Extremity: Leg swelling. Hypertrophic scab anterior leg. Muscle mass equal and symmetric to contralateral side. No tenderness to palpation. No cords or calf tenderness. Full passive and active ROM, free from pain. Joints stable with no pathologic laxity. Unable to move foot or toes. SILT distally; 2 + DP pulses; Cap refill brisk. Tone and reflexes normal. Left Lower Extremity: Leg swelling. Hypertrophic scab posterior leg. Muscle mass equal and symmetric to contralateral side. No masses or effusions noted. Tender to palpation left greater trochanter; nontender throughout rest of extremity. No cords or calf tenderness. Negative log roll. Able to SLR. No pain with passive hip range of motion. EHL/TA/GS motor intact; SILT distally; 2+ DP pulses; Cap refill brisk. Tone and reflexes normal. DVT Exam: No evidence of DVT seen on physical exam; No cords or calf tenderness ; No significant calf/ankle edema. Intake & Output 12/11/18 12/12/18 12/13/18 23:59 23:59 23:59 Intake Total 750 Output Total 1000 Balance -250 Intake: IV 450 LACTATED RINGERS SOLUTION 450 1,000 ml In 1,000 ml @ 75 mls/hr IV ASDIR [facility] Rx #:[id number] IVPB 300 Output: Urine 1000 Void 1000 Other: Voiding Method Urinal Weight 190 lb 180 lb 12.8 oz Height 5 ft 11 in 5 ft 11 in Body Mass Index (BMI) 26.4 Weight Measurement Method Patient Lift Scale Active Medications Generic Name Dose Route Start Last Admin Trade Name Freq PRN Reason Stop Dose Admin Acetaminophen 325 mg 12/13/18 00:47 Tylenol - PO 12/16/18 00:46 Q4H PRN PAIN LEVEL 7 - 10 Alprazolam 1 mg 12/13/18 07:58 Xanax - PO BID [facility] Amiodarone HCl 300 mg 12/13/18 10:00 Cordarone - PO DAILY [facility] Ascorbic Acid 1,000 mg 12/13/18 10:00 Vitamin C - PO DAILY [facility] Aspirin 81 mg 12/13/18 10:00 Ecotrin - PO DAILY [facility] Atorvastatin Calcium 80 mg 12/13/18 22:00 Lipitor - PO HS [facility] Carvedilol 6.25 mg 12/13/18 10:00 Coreg - PO BID [facility] Cyanocobalamin 1,000 mcg 12/13/18 10:00 Vitamin B12 - PO DAILY [facility] Dicloxacillin Sodium 500 mg 12/13/18 06:00 12/13/18 07:07 Dynapen - PO 500 mg TID [facility] Administration Docusate Sodium 100 mg 12/13/18 01:15 12/13/18 04:15 Colace - PO Not Given BID [facility] Heparin Sodium (Porcine) 5,000 unit 12/13/18 10:00 Heparin - SQ BID [facility] Lactated Ringer's 1,000 ml in 1,000 mls @ 75 mls/hr 12/13/18 00:30 12/13/18 01:39 Lactated Ringers Solution IV 75 mls/hr ASDIR [facility] Administration Insulin Aspart 1 vial 12/13/18 07:00 12/13/18 07:01 Novolog Vial Sliding Scale - SQ Not Given ACHS [facility] Protocol Insulin Detemir 10 units 12/13/18 01:45 12/13/18 07:00 Levemir Vial SQ Not Given HS [facility] Lactic Acid 1 applic 12/13/18 09:30 Lac-Hydrin 12 TP BID PRN xerosis Levothyroxine Sodium 100 mcg/ 225 mcg 12/13/18 07:00 12/13/18 07:06 Levothyroxine Sodium 125 mcg PO 225 mcg DAILY@0700 [facility] Administration Non-Formulary Medication 1,000 mg 12/13/18 10:00 Flaxseed Oil [Flaxseed Oil] PO DAILY [facility] Non-Formulary Medication 0.8 mg 12/13/18 10:00 Folic Acid [Folic Acid] PO DAILY [facility] Non-Formulary Medication 30 mg 12/13/18 10:00 Magnesium [Magnesium] PO DAILY [facility] Non-Formulary Medication 1,000 mg 12/13/18 10:00 [place]-3 Fatty Acids [[place]-3] PO DAILY [facility] Oxycodone HCl 5 mg 12/13/18 00:47 Roxicodone - PO Q4H PRN PAIN LEVEL 7 - 10 Phenytoin Sodium 300 mg 12/13/18 10:00 Dilantin - PO BID [facility] Potassium Chloride 10 meq 12/13/18 10:00 K-Dur - PO DAILY [facility] Pyridoxine HCl 50 mg 12/13/18 10:00 Vitamin B6 - PO DAILY [facility] Spironolactone 25 mg 12/13/18 10:00 Aldactone - PO DAILY [facility] Vital Signs (last) Temp Pulse Resp BP Pulse Ox 98.5 F 75 20 104/56 L 96 12/13/18 00:00 12/13/18 06:00 12/13/18 06:00 12/13/18 06:00 12/13/18 00:00 Laboratory (coagulation) PT with INR 12.50 SEC (9.7-13.0) 12/13/18 05:30 Laboratory 12/13/18 05:30 12/13/18 05:30 IMAGING MRI Left Hip: Pending ASSESSMENT AND PLAN Ray Laceky is a 78 year old male presenting status post mechanical fall with a left sided greater trochanteric fracture. There is no definitive intertrochanteric extention seen on CT; MRI will be useful in evaluating this if there are no contraindications. The patient also has a history of chronic osteomyelitis of the left tibia and is being treated on chronic suppressive antibiotics. We have reviewed the imaging and clinical findings in detail, as well as their potential implications. - MRI Pelvis to rule out intertrochanteric extension (if no contraindication) - Wound care consult - Podiatry consult - Pain control: Transition to oral pain medications, minimize narcotic use - DVT prophylaxis - Continue antibiotics for chronic osteomyelitis - Ice/Elevation - Elevate HOB, encourage oral intake - Appreciate medical management (Nutrition optimization, decubitus precautions heel/sacrum) All questions were answered. Thank you for involving our team in the care of this patient. Will continue to follow. [phone].
[2018-12-13] MEDS ORDERED: PYRIDOXINE HCL (B-6) 50 MG TABLET (FP) PO SCH (10:00)
[2018-12-13] MEDS: SPIRONOLACTONE 25 MG TABLET (FP) PO SCH (10:00)
[2018-12-13] MEDS: HEPARIN NA (PORCINE) 5,000 UNITS/ML 1ML VIAL SQ SCH ×2 (10:00→22:33)
[2018-12-13] MEDS ORDERED: FLAXSEED OIL 1000 MG PO SCH (10:00)
[2018-12-13] MEDS: AMIODARONE HCL 200 MG TABLET (FP) PO SCH (10:00)
[2018-12-13] MEDS: ALPRAZolam 0.25 MG TABLET PO SCH ×2 (10:00→22:55)
[2018-12-13] MEDS: ASCORBIC ACID 500 MG TABLET (FP) PO SCH (10:00)
[2018-12-13] MEDS: CYANOCOBALAMIN 1,000 MCG TABLET (FP) PO SCH (10:00)
[2018-12-13] MEDS: CARVEDILOL 6.25 MG TABLET (FP) PO SCH ×2 (10:00→22:33)
[2018-12-13] MEDS: ASPIRIN COATED 81 MG TABLET.EC PO SCH (10:00)
[2018-12-13] MEDS: POTASSIUM CHLORIDE TABS 10 MEQ TABLET.ER (FP) PO SCH (10:01)
[2018-12-13] MEDS: PHENYTOIN NA EXTENDED 100 MG CAPSULE (FP) PO SCH ×2 (10:01→22:34)
[2018-12-13] MEDS: SODIUM CHLORIDE 0.9%/KCL 20 MEQ/1,000 ML INFUS.BAG IV SCH (10:58)
[2018-12-13 11:03] LABS: OSMOLALITY,SERUM 301 mosm/kg (278-305)
--- NOTE | 2018-12-13 11:31 | PN ---
Progress Note (short form) - Note Progress Note: has pain in left hip no distress no diarrhea no increased urination no chest pain , palpitations Vital Signs - 24 hr 12/12/18 12/12/18 12/12/18 16:20 18:57 19:23 Temperature 97.4 F L 98.1 F 98.6 F Pulse Rate 98 H Pulse Rate [ 72 70 Apical] Respiratory 16 20 22 H Rate Blood Pressure 98/60 Blood Pressure 100/62 118/64 [Right Arm] O2 Sat by Pulse 97 98 100 Oximetry (%) 12/12/18 12/13/18 12/13/18 22:59 00:00 06:00 Temperature 98.9 F 98.5 F Pulse Rate 76 75 Pulse Rate [ 81 Apical] Respiratory 18 20 20 Rate Blood Pressure 108/63 104/56 L Blood Pressure 114/69 [Right Arm] O2 Sat by Pulse 98 96 Oximetry (%) Current Medications Generic Name Dose Route Start Last Admin Trade Name Freq PRN Reason Stop Dose Admin Acetaminophen 325 mg 12/13/18 00:47 Tylenol - PO 12/16/18 00:46 Q4H PRN PAIN LEVEL 7 - 10 Alprazolam 1 mg 12/13/18 07:58 12/13/18 10:00 Xanax - PO 1 mg BID EUGENE Administration Amiodarone HCl 300 mg 12/13/18 10:00 12/13/18 10:00 Cordarone - PO 300 mg DAILY EUGENE Administration Ascorbic Acid 1,000 mg 12/13/18 10:00 12/13/18 10:00 Vitamin C - PO 1,000 mg DAILY EUGENE Administration Aspirin 81 mg 12/13/18 10:00 12/13/18 10:00 Ecotrin - PO 81 mg DAILY EUGENE Administration Atorvastatin Calcium 80 mg 12/13/18 22:00 Lipitor - PO HS EUGENE Carvedilol 6.25 mg 12/13/18 10:00 12/13/18 10:00 Coreg - PO 6.25 mg BID EUGENE Administration Cyanocobalamin 1,000 mcg 12/13/18 10:00 12/13/18 10:00 Vitamin B12 - PO 1,000 mcg DAILY EUGENE Administration Dicloxacillin Sodium 500 mg 12/13/18 06:00 12/13/18 07:07 Dynapen - PO 500 mg TID EUGENE Administration Docusate Sodium 100 mg 12/13/18 01:15 12/13/18 10:00 Colace - PO 100 mg BID EUGENE Administration Heparin Sodium (Porcine) 5,000 unit 12/13/18 10:00 12/13/18 10:00 Heparin - SQ 5,000 unit BID EUGENE Administration Potassium Chloride 10 meq in 100 mls @ 100 mls/hr 12/13/18 10:45 12/13/18 10: 58 Potassium Chloride 10 Meq Premix Ivpb - IVPB 12/13/18 13:44 100 mls/hr Q60M EUGENE Administration Potassium Chloride/Sodium Chloride 20 meq in 1,000 mls @ 83 mls/hr 12/13/18 10 :45 12/13/18 10:58 Ns+20 Meq Kcl - IV 83 mls/hr ASDIR EUGENE Administration Insulin Aspart 1 vial 12/13/18 07:00 12/13/18 11:21 Novolog Vial Sliding Scale - SQ Not Given ACHS [facility] Protocol Insulin Detemir 10 units 12/13/18 01:45 12/13/18 07:00 Levemir Vial SQ Not Given HS [facility] Lactic Acid 1 applic 12/13/18 09:30 Lac-Hydrin 12 TP BID PRN xerosis Levothyroxine Sodium 100 mcg/ 225 mcg 12/13/18 07:00 12/13/18 07:06 Levothyroxine Sodium 125 mcg PO 225 mcg DAILY@0700 EUGENE Administration Non-Formulary Medication 1,000 mg 12/13/18 10:00 Flaxseed Oil [Flaxseed Oil] PO DAILY [facility] Non-Formulary Medication 0.8 mg 12/13/18 10:00 Folic Acid [Folic Acid] PO DAILY [facility] Non-Formulary Medication 30 mg 12/13/18 10:00 Magnesium [Magnesium] PO DAILY [facility] Non-Formulary Medication 1,000 mg 12/13/18 10:00 [place]-3 Fatty Acids [[place]-3] PO DAILY EUGENE Oxycodone HCl 5 mg 12/13/18 00:47 Roxicodone - PO Q4H PRN PAIN LEVEL 7 - 10 Phenytoin Sodium 300 mg 12/13/18 10:00 12/13/18 10:01 Dilantin - PO 300 mg BID EUGENE Administration Potassium Chloride 10 meq 12/13/18 10:00 12/13/18 10:01 K-Dur - PO 10 meq DAILY EUGENE Administration Potassium Chloride 40 meq 12/13/18 12:00 K-Dur - PO 12/13/18 12:01 ONCE ONE Pyridoxine HCl 50 mg 12/13/18 10:00 12/13/18 10:02 Vitamin B6 - PO 50 mg DAILY EUGENE Administration Spironolactone 25 mg 12/13/18 10:00 12/13/18 10:00 Aldactone - PO 25 mg DAILY EUGENE Administration Laboratory Results - last 24 hr 12/12/18 12/12/18 12/12/18 19:40 19:40 19:40 WBC 10.8 H RBC 4.00 Hgb 12.7 Hct 36.2 MCV 90.4 MCH 31.7 MCHC 35.1 RDW 18.0 H Plt Count 184 D MPV 8.5 Absolute Neuts (auto) 8.2 H Neutrophils % 75.7 D Lymphocytes % 7.7 L D Monocytes % 15.1 H Eosinophils % 0.9 Basophils % 0.6 Nucleated RBC % 0 PT with INR 12.00 INR 1.02 PTT (Actin FS) 25.7 Sodium 132 L Potassium 2.3 L* Chloride 84 L Carbon Dioxide 41 H Anion Gap 7 L BUN 77 H Creatinine 1.5 H Creat Clearance w eGFR 45.26 POC Glucometer Random Glucose 122 H Serum Osmolality Calcium 8.9 Magnesium Total Bilirubin 0.7 AST 40 H ALT 39 Alkaline Phosphatase 185 H Total Protein 7.0 Albumin 3.6 Urine Osmolality Ur Random Sodium Blood Type Antibody Screen 12/12/18 12/12/18 12/12/18 19:46 21:14 23:19 WBC RBC Hgb Hct MCV MCH MCHC RDW Plt Count MPV Absolute Neuts (auto) Neutrophils % Lymphocytes % Monocytes % Eosinophils % Basophils % Nucleated RBC % PT with INR INR PTT (Actin FS) Sodium 132 L Potassium 2.3 L* Chloride 83 L Carbon Dioxide 39 H Anion Gap 10 BUN 71 H Creatinine 1.3 Creat Clearance w eGFR 53.39 POC Glucometer 152 Random Glucose 169 H Serum Osmolality Calcium 8.5 Magnesium Total Bilirubin AST ALT Alkaline Phosphatase Total Protein Albumin Urine Osmolality Ur Random Sodium Blood Type O POSITIVE Antibody Screen Negative 12/13/18 12/13/18 12/13/18 05:30 05:30 05:30 WBC 9.0 RBC 3.74 L Hgb 11.7 Hct 33.8 L MCV 90.3 MCH 31.3 MCHC 34.7 RDW 17.9 H Plt Count 168 MPV 9.0 Absolute Neuts (auto) 6.6 Neutrophils % 73.4 Lymphocytes % 10.1 D Monocytes % 15.1 H Eosinophils % 0.7 Basophils % 0.7 Nucleated RBC % 0 PT with INR 12.50 INR 1.06 PTT (Actin FS) Sodium 133 L Potassium 2.9 L* Chloride 87 L Carbon Dioxide 38 H Anion Gap 8 BUN 61 H Creatinine 1.3 Creat Clearance w eGFR 53.39 POC Glucometer Random Glucose 190 H Serum Osmolality 301 Calcium 8.7 Magnesium 3.3 H Total Bilirubin 1.3 H AST 34 ALT 33 Alkaline Phosphatase 163 H Total Protein 6.6 Albumin 3.3 L Urine Osmolality Ur Random Sodium Blood Type Antibody Screen 12/13/18 12/13/18 12/13/18 05:30 05:30 06:01 WBC RBC Hgb Hct MCV MCH MCHC RDW Plt Count MPV Absolute Neuts (auto) Neutrophils % Lymphocytes % Monocytes % Eosinophils % Basophils % Nucleated RBC % PT with INR INR PTT (Actin FS) Sodium Potassium Chloride Carbon Dioxide Anion Gap BUN Creatinine Creat Clearance w eGFR POC Glucometer 200 Random Glucose Serum Osmolality Calcium Magnesium Total Bilirubin AST ALT Alkaline Phosphatase Total Protein Albumin Urine Osmolality 452 Ur Random Sodium 21 L Blood Type Antibody Screen 12/13/18 12/13/18 07:30 11:18 WBC RBC Hgb Hct MCV MCH MCHC RDW Plt Count MPV Absolute Neuts (auto) Neutrophils % Lymphocytes % Monocytes % Eosinophils % Basophils % Nucleated RBC % PT with INR INR PTT (Actin FS) Sodium Potassium Chloride Carbon Dioxide Anion Gap BUN Creatinine Creat Clearance w eGFR POC Glucometer 170 Random Glucose Serum Osmolality Cancelled Calcium Magnesium Total Bilirubin AST ALT Alkaline Phosphatase Total Protein Albumin Urine Osmolality Ur Random Sodium Blood Type Antibody Screen s1 s2 irregular Lungs clear Abd- soft, NT edema , muscle mass decreased on rt leg - due to obtaining flap on that side scab on rt anterior leg left leg- chronic skin changes PLAN left greater trochanterfracture --for MRI today -- he has metallic plates in head - has meningioma-- as per pt it is compatible with MRI as he gets MRI brain yearly with Dr Sylvain Sorto -- pain control -- ortho eval noted --??no surgery -- daughter would like the pt to go to [facility] Hypokalemia -- change iv fluids -- replace potassium-- does not sound volume overloaded -- continue with Aldactone -- hold off Lasix -- repeat BMP later today Acute renal failure -- nephrotoxic med son hold -- continue with iv fluids -- recheck later today DVT prophylaxis -- Heparin sc Problem List - Problems (1) Intertrochanteric fracture Code(s): S72.143A - DISPLACED INTERTROCHANTERIC FRACTURE OF UNSP FEMUR, INIT Qualifiers: Encounter type: initial encounter Fracture type: closed Fracture alignment: nondisplaced Laterality: left Qualified Code(s): S72.145A - Nondisplaced intertrochanteric fracture of left femur, initial encounter for closed fracture (2) TRUDY (acute kidney injury) Code(s): N17.9 - ACUTE KIDNEY FAILURE, UNSPECIFIED (3) CAD (coronary artery disease) Code(s): I25.10 - ATHSCL HEART DISEASE OF [place] CORONARY ARTERY W/O ANG PCTRS Qualifiers: Coronary Disease-Associated Artery/Lesion type: bypass graft [place] vs. transplanted heart: [place] heart Associated angina: angina presence unspecified Qualified Code(s): I25.810 - Atherosclerosis of coronary artery bypass graft(s) without angina pectoris (4) HTN (hypertension) Code(s): I10 - ESSENTIAL (PRIMARY) HYPERTENSION Qualifiers: Hypertension type: essential hypertension Qualified Code(s): I10 - Essential (primary) hypertension
[2018-12-13] MEDS ORDERED: POTASSIUM CHLORIDE TABS 20 MEQ TABLET.ER (FP) PO ONE (12:00)
--- NOTE | 2018-12-13 14:41 | EKG ---
Test Reason : Blood Pressure : / mmHG Vent. Rate : 076 BPM Atrial Rate : 089 BPM P-R Int : 000 ms QRS Dur : 132 ms QT Int : 440 ms P-R-T Axes : 000 -52 068 degrees QTc Int : 495 ms ATRIAL FIBRILLATION LEFT AXIS DEVIATION NON-SPECIFIC INTRA-VENTRICULAR CONDUCTION BLOCK INFERIOR INFARCT (CITED ON OR BEFORE 23-JUL-2006) CANNOT RULE OUT ANTERIOR INFARCT , AGE UNDETERMINED ABNORMAL ECG Confirmed by Santo Troy MD ([id number]) on 12/13/2018 2:40:47 PM Referred By: Confirmed By:Santo Troy MD
[2018-12-13] MEDS ORDERED: ALPRAZolam 0.25 MG TABLET PO ONE (15:15)
--- NOTE | 2018-12-13 15:49 | CON.ID ---
Consult Consult Specialty:: infectious diseases Referred by:: Reason for Consultation:: lt leg pain/osteo history - History of Present Illness Chief Complaint: lt leg pain History of Present Illness: Pt with PMH as stated presents to the ER with a CC of L-hip pain after a mechanical fall. He denies any prodromal or syncopal sx. He fell on his L-hip and was down for aproximately 1 hour before he was able to be helped up and was subsequentially brought to the hospital for further treatment. He was noted to have a L-greater trochanteric fracture on XR; orthopedic sgy was called and they recommended XR of the area where he is being treated for chronic osteomyelitis as well as CT except pain patient does not have any issues he is on chronic suppression therapy for a long time for his osteo which he had very early in his life - History Source History Provided By: Patient Limitations to Obtaining History: No Limitations - Past Medical History E [employer]: Yes: Peripheral Neuropathy, Other (meningioma) Cardio/Vascular: Yes: AFIB, CAD (s/p CABG), CHF, HTN, Hyperlipdemia Psych: Yes: Anxiety Musculoskeletal: Yes: Chronic low back pain Endocrine: Yes: Diabetes Mellitus, Hypothyroidism - Past Surgical History Past Surgical History: Yes: CABG - Alcohol/Substance Use Hx Alcohol Use: Yes (OCCAS) History of Substance Use: reports: None - Smoking History Smoking history: Former smoker Have you smoked in the past 12 months: No If you are a former smoker, when did you quit?: 40YRS AGO Home Medications - Allergies Allergies/Adverse Reactions: Allergies Allergy/AdvReac Type Severity Reaction Status Date / Time No Known Drug Allergies Allergy Verified 12/12/18 17:03 - Home Medications Home Medications: Ambulatory Orders RX: Amiodarone HCl [Cordarone -] 300 mg PO DAILY 08/25/13 RX: Ascorbic Acid [Vitamin C] 1,000 mg PO DAILY 08/25/13 RX: Aspirin Coated [Ecotrin -] 81 mg PO DAILY 08/25/13 RX: Atorvastatin Ca [Lipitor] 80 mg PO HS 08/25/13 RX: Carvedilol [Coreg -] 6.25 mg PO BID 08/25/13 RX: Dicloxacillin Sodium 500 mg PO TID 08/25/13 RX: Flaxseed Oil 1,000 mg PO DAILY 08/25/13 RX: Folic Acid 0.8 mg PO DAILY 08/25/13 RX: Insulin Glargine,Hum.rec.anlog [Lantus (10mL VIAL) -] 10 units SQ HS RX: Magnesium 30 mg PO DAILY 08/25/13 RX: Phenytoin Sodium Extended [Phenytek] 300 mg PO BID 08/25/13 RX: Potassium Chloride [K-Tab] 10 meq PO DAILY 08/25/13 RX: Pyridoxine HCl (B-6) [Vitamin B6 -] 50 mg PO DAILY 08/25/13 RX: Zinc 50 mg PO DAILY 08/25/13 RX: Insulin Lispro [Humalog] 0 unit SQ TID 08/26/13 RX: Alprazolam [Xanax] 1 mg PO BID 07/06/17 RX: Cyanocobalamin [Vitamin B12 -] 1,000 mcg PO DAILY 07/06/17 RX: Docusate Sodium [Colace -] 100 mg PO BID 07/06/17 RX: [place]-3 Fatty Acids [[place]-3] 1,000 mg PO DAILY 07/06/17 RX: Ubidecarenone/Vit E Acet [Co Q-10 100 mg Softgel] 1 each PO DAILY 07/06/17 Cefuroxime Axetil [Ceftin -] 500 mg PO Q12H #8 tablet 04/28/18 RX: Levothyroxine [Synthroid -] 225 mcg PO DAILY@0700 #30 tablet 04/28/18 RX: Spironolactone [Aldactone -] 25 mg PO DAILY #30 tablet 04/28/18 RX: Furosemide [Lasix -] 40 mg PO BID 12/13/18 Review of Systems - Review of Systems Constitutional: reports: No Symptoms Eyes: reports: No Symptoms HENT: reports: No Symptoms Neck: reports: No Symptoms Cardiovascular: reports: No Symptoms Respiratory: reports: No Symptoms Gastrointestinal: reports: No Symptoms Genitourinary: reports: No Symptoms Musculoskeletal: reports: Other (left hip pain) Integumentary: reports: No Symptoms Neurological: reports: No Symptoms Endocrine: reports: No Symptoms Hematology/Lymphatic: reports: No Symptoms Psychiatric: reports: No Symptoms Physical Exam Vital Signs: Vital Signs Temperature 98.8 F 12/13/18 15:08 Pulse Rate 78 12/13/18 15:08 Respiratory Rate 20 12/13/18 15:08 Blood Pressure 106/67 12/13/18 15:08 O2 Sat by Pulse Oximetry (%) 96 12/13/18 09:00 Constitutional: Yes: Well Nourished, Calm, Mild Distress Neck: Yes: Supple, Trachea Midline Cardiovascular: Yes: Regular Rate and Rhythm Respiratory: Yes: Regular, CTA Bilaterally Gastrointestinal: Yes: Normal Bowel Sounds, Soft Musculoskeletal: Yes: WNL Extremities: Yes: Other Neurological: Yes: Alert, Oriented Labs: CBC, BMP 12/13/18 05:30 12/13/18 05:30 Imaging - Results Chest X-ray: Report Reviewed, Image Reviewed X-ray: Report Reviewed, Image Reviewed Assessment/Plan Problem List - Problems (1) Intertrochanteric fracture Code(s): S72.143A - DISPLACED INTERTROCHANTERIC FRACTURE OF UNSP FEMUR, INIT Qualifiers: Encounter type: initial encounter Fracture type: closed Fracture alignment: nondisplaced Laterality: left Qualified Code(s): S72.145A - Nondisplaced intertrochanteric fracture of left femur, initial encounter for closed fracture (2) TRUDY (acute kidney injury) Code(s): N17.9 - ACUTE KIDNEY FAILURE, UNSPECIFIED (3) CAD (coronary artery disease) Code(s): I25.10 - ATHSCL HEART DISEASE OF [place] CORONARY ARTERY W/O ANG PCTRS Qualifiers: Coronary Disease-Associated Artery/Lesion type: bypass graft [place] vs. transplanted heart: [place] heart Associated angina: angina presence unspecified Qualified Code(s): I25.810 - Atherosclerosis of coronary artery bypass graft(s) without angina pectoris (4) HTN (hypertension) Code(s): I10 - ESSENTIAL (PRIMARY) HYPERTENSION Qualifiers: Hypertension type: essential hypertension Qualified Code(s): I10 - Essential (primary) hypertension h/o of osteo plan will not start on any abx await for ortho final plan rest as per the team continue suppressive therapy
[2018-12-13 16:47] LABS: ANION GAP 6 MMOL/L (8-16); BLOOD UREA NITROGEN 50 mg/dL (7-18); CALCIUM 8.3 mg/dL (8.5-10.1); CHLORIDE 91 mmol/L (98-107); CO2 37 mmol/L (21-32); CREATININE 1.4 mg/dL (0.55-1.3); GLUCOSE,RANDOM 163 mg/dL (74-106); POTASSIUM 3.4 mmol/L (3.5-5.1); SODIUM 134 mmol/L (136-145)
[2018-12-13] MEDS: oxyCODONE HCL 5 MG TABLET PO PRN (19:48)
[2018-12-13] MEDS: ATORVASTATIN CA 80 MG TABLET (FP) PO SCH (22:33)
[2018-12-14] MEDS: SODIUM CHLORIDE 0.9%/KCL 20 MEQ/1,000 ML INFUS.BAG IV SCH ×3 (01:44→17:29)
[2018-12-14] MEDS ORDERED: LEVOTHYROXINE NA 125 MCG TABLET (FP) ONE (05:43)
[2018-12-14] MEDS ORDERED: LEVOTHYROXINE NA 100 MCG TABLET (FP) ONE (05:44)
[2018-12-14] MEDS: LEVOTHYROXINE 100 MCG, LEVOTHYROXINE 125 MCG PO SCH (06:55)
[2018-12-14] MEDS: DICLOXACILLIN SODIUM 250 MG CAPSULE PO SCH ×3 (06:56→21:54)
[2018-12-14] MEDS: INSULIN SLIDING SCALE (NOVOLOG) 1 VIAL SQ SCH ×4 (06:56→22:03)
[2018-12-14 07:56] LABS: ANION GAP 7 MMOL/L (8-16); BLOOD UREA NITROGEN 44 mg/dL (7-18); CALCIUM 8.2 mg/dL (8.5-10.1); CHLORIDE 96 mmol/L (98-107); CO2 35 mmol/L (21-32); CREATININE 1.1 mg/dL (0.55-1.3); GLUCOSE,RANDOM 125 mg/dL (74-106); POTASSIUM 3.2 mmol/L (3.5-5.1); SODIUM 138 mmol/L (136-145)
--- NOTE | 2018-12-14 08:45 | PN ---
Progress Note (short form) - Note Progress Note: ORTHOPEDIC SURGERY PROGRESS NOTE Department of Orthopedic Surgery SUBJECTIVE No acute events overnight. No new complaints currently. Denies chest pain, shortness of breath, or calf pain. No nausea or vomiting. Tolerating oral intake. Pain control improving. Patient states he has a AFO for his chronic right foot drop but is unable to currently wear it due to the scab on his leg. Intake & Output 12/12/18 12/13/18 12/14/18 23:59 23:59 23:59 Intake Total 2429 581 Output Total 1400 1200 Balance 1029 -619 Intake: IV 1529 581 LACTATED RINGERS SOLUTION 450 1,000 ml In 1,000 ml @ 75 mls/hr IV ASDIR EUGENE Rx #:[id number] NS+20 MEQ KCL - 20 meq In 1079 581 1,000 ml @ 83 mls/hr IV ASDIR EUGENE Rx#:[id number] IVPB 600 Oral 300 Output: Urine 1400 1200 Void 1400 1200 Other: Voiding Method Urinal # Unmeasured Voids Void 2 Weight 190 lb 180 lb 12.8 oz Height 5 ft 11 in 5 ft 11 in Body Mass Index (BMI) 26.4 Weight Measurement Method Patient Lift Scale Active Medications Generic Name Dose Route Start Last Admin Trade Name Freq PRN Reason Stop Dose Admin Acetaminophen 325 mg 12/13/18 00:47 Tylenol - PO 12/16/18 00:46 Q4H PRN PAIN LEVEL 7 - 10 Alprazolam 1 mg 12/13/18 07:58 12/13/18 22:55 Xanax - PO 1 mg BID EUGENE Administration Amiodarone HCl 300 mg 12/13/18 10:00 12/13/18 10:00 Cordarone - PO 300 mg DAILY EUGENE Administration Ascorbic Acid 1,000 mg 12/13/18 10:00 12/13/18 10:00 Vitamin C - PO 1,000 mg DAILY EUGENE Administration Aspirin 81 mg 12/13/18 10:00 12/13/18 10:00 Ecotrin - PO 81 mg DAILY EUGENE Administration Atorvastatin Calcium 80 mg 12/13/18 22:00 12/13/18 22:33 Lipitor - PO 80 mg HS EUGENE Administration Carvedilol 6.25 mg 12/13/18 10:00 12/13/18 22:33 Coreg - PO 6.25 mg BID EUGENE Administration Cyanocobalamin 1,000 mcg 12/13/18 10:00 12/13/18 10:00 Vitamin B12 - PO 1,000 mcg DAILY EUGENE Administration Dicloxacillin Sodium 500 mg 12/13/18 06:00 12/14/18 06:56 Dynapen - PO 500 mg TID EUGENE Administration Docusate Sodium 100 mg 12/13/18 01:15 12/13/18 22:33 Colace - PO 100 mg BID EUGENE Administration Heparin Sodium (Porcine) 5,000 unit 12/13/18 10:00 12/13/18 22:33 Heparin - SQ 5,000 unit BID [facility] Administration Potassium Chloride/Sodium Chloride 20 meq in 1,000 mls @ 83 mls/hr 12/13/18 10 :45 12/14/18 01:44 Ns+20 Meq Kcl - IV 83 mls/hr ASDIR [facility] Administration Insulin Aspart 1 vial 12/13/18 07:00 12/14/18 06:56 Novolog Vial Sliding Scale - SQ Not Given ACHS [facility] Protocol Insulin Detemir 10 units 12/13/18 01:45 12/13/18 22:32 Levemir Vial SQ Not Given HS EUGENE Lactic Acid 1 applic 12/13/18 09:30 Lac-Hydrin 12 TP BID PRN xerosis Levothyroxine Sodium 100 mcg/ 225 mcg 12/13/18 07:00 12/14/18 06:55 Levothyroxine Sodium 125 mcg PO 225 mcg DAILY@0700 [facility] Administration Non-Formulary Medication 1,000 mg 12/13/18 10:00 Flaxseed Oil [Flaxseed Oil] PO DAILY [facility] Non-Formulary Medication 0.8 mg 12/13/18 10:00 Folic Acid [Folic Acid] PO DAILY [facility] Non-Formulary Medication 30 mg 12/13/18 10:00 Magnesium [Magnesium] PO DAILY [facility] Non-Formulary Medication 1,000 mg 12/13/18 10:00 [place]-3 Fatty Acids [[place]-3] PO DAILY [facility] Oxycodone HCl 5 mg 12/13/18 00:47 12/13/18 19:48 Roxicodone - PO 5 mg Q4H PRN Administration PAIN LEVEL 7 - 10 Phenytoin Sodium 300 mg 12/13/18 10:00 12/13/18 22:34 Dilantin - PO 300 mg BID EUGENE Administration Potassium Chloride 10 meq 12/13/18 10:00 12/13/18 10:01 K-Dur - PO 10 meq DAILY EUGENE Administration Pyridoxine HCl 50 mg 12/14/18 10:00 Vitamin B6 - PO DAILY EUGENE Spironolactone 25 mg 12/13/18 10:00 12/13/18 10:00 Aldactone - PO 25 mg DAILY EUGENE Administration Vital Signs (last) Temp Pulse Resp BP Pulse Ox 98.5 F 70 20 104/61 98 12/14/18 06:00 12/14/18 06:00 12/14/18 06:00 12/14/18 06:00 12/13/18 20:52 Laboratory (coagulation) PT with INR 12.50 SEC (9.7-13.0) 12/13/18 05:30 Laboratory 12/13/18 05:30 12/14/18 06:00 PHYSICAL EXAMINATION General: Alert, oriented, cooperative and no distress. Right Upper Extremity: Right dorsal forearm dressed with xeroform and kerlex. Muscle mass equal and symmetric to contralateral side. No masses or effusions noted. No tenderness to palpation. Full passive and active ROM, free from pain. Joints stable with no pathologic laxity. M/R/U/MSK/AX motor intact; SILT distally; 2+ radial pulses; Cap refill brisk. Tone and reflexes normal. Right Lower Extremity: Leg swelling. Hypertrophic scab anterior leg. Muscle mass equal and symmetric to contralateral side. Nontender throughout rest of extremity. No cords or calf tenderness. Negative log roll. Able to SLR. No pain with passive hip range of motion. Unable to DF/PF or move toes. SILT distally; 2 + PT pulses; Cap refill brisk. Tone and reflexes normal. Negative Babinski. Left Lower Extremity: Leg swelling. Hypertrophic scab posterior leg. Muscle mass equal and symmetric to contralateral side. No masses or effusions noted. Tender to palpation left greater trochanter; nontender throughout rest of extremity. No cords or calf tenderness. Negative log roll. Able to SLR. No pain with passive hip range of motion. TA/GS motor intact; SILT distally; 2+ DP pulses; Cap refill brisk. Tone and reflexes normal. Negative Babinski. DVT Exam: No evidence of DVT seen on physical exam; No cords or calf tenderness IMAGING I personally reviewed all radiographs, CT, and other imaging. They demonstrate a left greater trochanteric hip fracture with. There does not appear to be intertrochanteric extension or breach of the medial cortex. The left tibia shows a healed fracture deformity with synostosis of the tibia and fibula. ASSESSMENT AND PLAN Ray aLckey is a 78 year old male with (1) left sided greater trochanteric fracture and (2) chronic osteomyelitis of the left tibia - FU MRI Report Pelvis - Pain control: Transition to oral pain medications, minimize narcotic use - DVT prophylaxis - Ice/Elevation - Continue suppressive antibiotics for chronic osteomyelitis left tibia - Elevate HOB, encourage oral intake - Appreciate medical management (Nutrition optimization, decubitus precautions heel/sacrum) All questions were answered. Thank you for involving our team in the care of this patient. We will follow the patient with you. Please call us at [phone] with questions. Shad Harley, DO Orthopedic Surgery
[2018-12-14] MEDS ORDERED: POTASSIUM CHLORIDE TABS 20 MEQ TABLET.ER (FP) PO ONE (09:00)
--- NOTE | 2018-12-14 10:18 | PN ---
Progress Note (short form) - Note Progress Note: has pain in left hip when moved no distress Vital Signs - 24 hr 12/13/18 12/13/18 12/14/18 20:00 20:52 02:00 Temperature 99.6 F 98.5 F Pulse Rate 80 70 Respiratory 20 20 Rate Blood Pressure 110/54 L 104/82 O2 Sat by Pulse 98 Oximetry (%) 12/14/18 12/14/18 12/14/18 06:00 09:00 09:38 Temperature 98.5 F 98.6 F Pulse Rate 70 67 Respiratory 20 20 Rate Blood Pressure 104/61 100/52 L O2 Sat by Pulse 94 L Oximetry (%) 12/14/18 14:00 Temperature 97.9 F Pulse Rate 80 Respiratory 20 Rate Blood Pressure 99/65 O2 Sat by Pulse Oximetry (%) Current Medications Generic Name Dose Route Start Last Admin Trade Name Freq PRN Reason Stop Dose Admin Acetaminophen 325 mg 12/13/18 00:47 12/14/18 14:59 Tylenol - PO 12/16/18 00:46 325 mg Q4H PRN Administration PAIN LEVEL 7 - 10 Alprazolam 1 mg 12/13/18 07:58 12/14/18 10:35 Xanax - PO 1 mg BID [facility] Administration Amiodarone HCl 300 mg 12/13/18 10:00 12/14/18 10:31 Cordarone - PO 300 mg DAILY [facility] Administration Ascorbic Acid 1,000 mg 12/13/18 10:00 12/14/18 10:35 Vitamin C - PO 1,000 mg DAILY [facility] Administration Aspirin 81 mg 12/13/18 10:00 12/14/18 10:33 Ecotrin - PO 81 mg DAILY [facility] Administration Atorvastatin Calcium 80 mg 12/13/18 22:00 12/13/18 22:33 Lipitor - PO 80 mg HS [facility] Administration Carvedilol 6.25 mg 12/13/18 10:00 12/14/18 10:33 Coreg - PO 6.25 mg BID [facility] Administration Cyanocobalamin 1,000 mcg 12/13/18 10:00 12/14/18 10:34 Vitamin B12 - PO 1,000 mcg DAILY [facility] Administration Dicloxacillin Sodium 500 mg 12/13/18 06:00 12/14/18 14:46 Dynapen - PO 500 mg TID [facility] Administration Docusate Sodium 100 mg 12/13/18 01:15 12/14/18 10:31 Colace - PO 100 mg BID [facility] Administration Furosemide 40 mg 12/14/18 14:00 12/14/18 14:47 Lasix - PO 40 mg BID@0600,1400 [facility] Administration Heparin Sodium (Porcine) 5,000 unit 12/13/18 10:00 12/14/18 10:34 Heparin - SQ 5,000 unit BID [facility] Administration Potassium Chloride/Sodium Chloride 20 meq in 1,000 mls @ 83 mls/hr 12/13/18 10 :45 12/14/18 10:44 Ns+20 Meq Kcl - IV Not Given ASDIR [facility] Insulin Aspart 1 vial 12/13/18 07:00 12/14/18 12:07 Novolog Vial Sliding Scale - SQ Not Given ACHS [facility] Protocol Insulin Detemir 10 units 12/13/18 01:45 12/13/18 22:32 Levemir Vial SQ Not Given HS [facility] Lactic Acid 1 applic 12/13/18 09:30 Lac-Hydrin 12 TP BID PRN xerosis Levothyroxine Sodium 100 mcg/ 225 mcg 12/13/18 07:00 12/14/18 06:55 Levothyroxine Sodium 125 mcg PO 225 mcg DAILY@0700 [facility] Administration Non-Formulary Medication 0.8 mg 12/13/18 10:00 Folic Acid [Folic Acid] PO DAILY [facility] Non-Formulary Medication 30 mg 12/13/18 10:00 Magnesium [Magnesium] PO DAILY [facility] Non-Formulary Medication 1,000 mg 12/13/18 10:00 [place]-3 Fatty Acids [[place]-3] PO DAILY [facility] Oxycodone HCl 5 mg 12/13/18 00:47 12/14/18 14:57 Roxicodone - PO 5 mg Q4H PRN Administration PAIN LEVEL 7 - 10 Phenytoin Sodium 300 mg 12/13/18 10:00 12/14/18 10:33 Dilantin - PO 300 mg BID [facility] Administration Potassium Chloride 10 meq 12/13/18 10:00 12/14/18 10:34 K-Dur - PO 10 meq DAILY [facility] Administration Pyridoxine HCl 50 mg 12/14/18 10:00 12/14/18 10:34 Vitamin B6 - PO 50 mg DAILY [facility] Administration Spironolactone 25 mg 12/13/18 10:00 12/14/18 10:30 Aldactone - PO 25 mg DAILY [facility] Administration Laboratory Results - last 24 hr 12/13/18 12/13/18 12/13/18 16:00 18:02 22:28 Sodium 134 L Potassium 3.4 L Chloride 91 L Carbon Dioxide 37 H Anion Gap 6 L BUN 50 H Creatinine 1.4 H Creat Clearance w eGFR 49.01 POC Glucometer 173 139 Random Glucose 163 H Calcium 8.3 L 12/14/18 12/14/18 12/14/18 06:00 06:54 11:50 Sodium 138 Potassium 3.2 L Chloride 96 L Carbon Dioxide 35 H Anion Gap 7 L BUN 44 H Creatinine 1.1 Creat Clearance w eGFR > 60 POC Glucometer 122 135 Random Glucose 125 H Calcium 8.2 L 12/14/18 11:59 Sodium Potassium Chloride Carbon Dioxide Anion Gap BUN Creatinine Creat Clearance w eGFR POC Glucometer 142 Random Glucose Calcium Lungs clear Abd- soft, NT edema , muscle mass decreased on rt leg - due to obtaining flap on that side scab on rt anterior leg left leg- chronic skin changes PLAN left greater trochanterfracture --mri done -- spoke with ortho-- no surgical interventions as it is not intertrochanteric fracture -- will need physical therapy -- pain control -- ortho eval noted Hypokalemia -- change iv fluids -- replace potassium-- does not sound volume overloaded -- continue with Aldactone -- hold off Lasix Acute renal failure-resolved -- nephrotoxic med son hold -- continue with iv fluids Afib- rate controlled -- not on AC due to falls -- cardiology eval noted DVT prophylaxis -- Heparin sc Problem List - Problems (1) Intertrochanteric fracture Code(s): S72.143A - DISPLACED INTERTROCHANTERIC FRACTURE OF UNSP FEMUR, INIT Qualifiers: Encounter type: initial encounter Fracture type: closed Fracture alignment: nondisplaced Laterality: left Qualified Code(s): S72.145A - Nondisplaced intertrochanteric fracture of left femur, initial encounter for closed fracture (2) TRUDY (acute kidney injury) Code(s): N17.9 - ACUTE KIDNEY FAILURE, UNSPECIFIED (3) CAD (coronary artery disease) Code(s): I25.10 - ATHSCL HEART DISEASE OF [place] CORONARY ARTERY W/O ANG PCTRS Qualifiers: Coronary Disease-Associated Artery/Lesion type: bypass graft [place] vs. transplanted heart: [place] heart Associated angina: angina presence unspecified Qualified Code(s): I25.810 - Atherosclerosis of coronary artery bypass graft(s) without angina pectoris (4) HTN (hypertension) Code(s): I10 - ESSENTIAL (PRIMARY) HYPERTENSION Qualifiers: Hypertension type: essential hypertension Qualified Code(s): I10 - Essential (primary) hypertension
[2018-12-14] MEDS ORDERED: PT OWN MED DRAWER 7, Y5N ONE ×2 (10:26→14:38)
[2018-12-14] MEDS: SPIRONOLACTONE 25 MG TABLET (FP) PO SCH (10:30)
[2018-12-14] MEDS: AMIODARONE HCL 200 MG TABLET (FP) PO SCH (10:31)
[2018-12-14] MEDS: DOCUSATE SODIUM 100 MG CAPSULE (FP) PO SCH ×2 (10:31→21:54)
[2018-12-14] MEDS: PHENYTOIN NA EXTENDED 100 MG CAPSULE (FP) PO SCH ×2 (10:33→21:54)
[2018-12-14] MEDS: ASPIRIN COATED 81 MG TABLET.EC PO SCH (10:33)
[2018-12-14] MEDS: CARVEDILOL 6.25 MG TABLET (FP) PO SCH ×2 (10:33→21:54)
[2018-12-14] MEDS: PYRIDOXINE HCL (B-6) 50 MG TABLET (FP) PO SCH (10:34)
[2018-12-14] MEDS: HEPARIN NA (PORCINE) 5,000 UNITS/ML 1ML VIAL SQ SCH ×2 (10:34→21:56)
[2018-12-14] MEDS: CYANOCOBALAMIN 1,000 MCG TABLET (FP) PO SCH (10:34)
[2018-12-14] MEDS: POTASSIUM CHLORIDE TABS 10 MEQ TABLET.ER (FP) PO SCH (10:34)
[2018-12-14] MEDS: ASCORBIC ACID 500 MG TABLET (FP) PO SCH (10:35)
[2018-12-14] MEDS: ALPRAZolam 0.25 MG TABLET PO SCH ×2 (10:35→21:55)
--- NOTE | 2018-12-14 11:37 | CON.CARD ---
Cardiology Consult (text) - Consultation Consultation Note: Cardiology covering for Dr Bender cc: fall hpi: 78 m hx cad, cabg, pafib, htn, hld, syst chf, hypothyroid here w/p fall. Pt was bending down to grab something and chair he was leaning on slipped and he fell. No prodrome sxs, no loc. No sob cp palps dizzy pnd orthopnea le edema. Hip hurt so came to ER. Has hx of frequent falls. pmh: per hpi psh: cabg social: ex tob fam: nc ros: per hpi; no nvd fever cough vision changes gib hematuria dysuria meds: Home Medications Medication Instructions Recorded Amiodarone HCl [Cordarone -] 300 mg PO DAILY 08/25/13 Ascorbic Acid [Vitamin C] 1,000 mg PO DAILY 08/25/13 Aspirin Coated [Ecotrin -] 81 mg PO DAILY 08/25/13 Atorvastatin Ca [Lipitor] 80 mg PO HS 08/25/13 Carvedilol [Coreg -] 6.25 mg PO BID 08/25/13 Dicloxacillin Sodium 500 mg PO TID 08/25/13 Flaxseed Oil 1,000 mg PO DAILY 08/25/13 Folic Acid 0.8 mg PO DAILY 08/25/13 Insulin Glargine,Hum.rec.anlog 10 units SQ HS 08/25/13 [Lantus (10mL VIAL) -] Magnesium 30 mg PO DAILY 08/25/13 Phenytoin Sodium Extended 300 mg PO BID 08/25/13 [Phenytek] Potassium Chloride [K-Tab] 10 meq PO DAILY 08/25/13 Pyridoxine HCl (B-6) [Vitamin B6 -] 50 mg PO DAILY 08/25/13 Zinc 50 mg PO DAILY 08/25/13 Insulin Lispro [Humalog] 0 unit SQ TID 08/26/13 Alprazolam [Xanax] 1 mg PO BID 07/06/17 Cyanocobalamin [Vitamin B12 -] 1,000 mcg PO DAILY 07/06/17 Docusate Sodium [Colace -] 100 mg PO BID 07/06/17 [place]-3 Fatty Acids [[place]-3] 1,000 mg PO DAILY 07/06/17 Ubidecarenone/Vit E Acet [Co Q-10 1 each PO DAILY 07/06/17 100 mg Softgel] Cefuroxime Axetil [Ceftin -] 500 mg PO Q12H #8 tablet 04/28/18 Levothyroxine [Synthroid -] 225 mcg PO DAILY@0700 #30 tablet 04/28/18 Spironolactone [Aldactone -] 25 mg PO DAILY #30 tablet 04/28/18 Furosemide [Lasix -] 40 mg PO BID 12/13/18 pe: Vital Signs Period Temp Pulse Resp BP Sys/Diggs Pulse Ox Last 24 Hr 98.5 F-99.6 F 67-80 20-20 100-110/52-82 94-98 nad no jvd irreg s1s2 no mrg cta bl nl eff aaox3 chronic stasis changes le, trace le edema abd nt nd pos bs no jaundice diaphoresis abd nt nd pos bs Current Medications Generic Name Dose Route Start Last Admin Trade Name Freq PRN Reason Stop Dose Admin Acetaminophen 325 mg 12/13/18 00:47 Tylenol - PO 12/16/18 00:46 Q4H PRN PAIN LEVEL 7 - 10 Alprazolam 1 mg 12/13/18 07:58 12/14/18 10:35 Xanax - PO 1 mg BID EUGENE Administration Amiodarone HCl 300 mg 12/13/18 10:00 12/14/18 10:31 Cordarone - PO 300 mg DAILY [facility] Administration Ascorbic Acid 1,000 mg 12/13/18 10:00 12/14/18 10:35 Vitamin C - PO 1,000 mg DAILY [facility] Administration Aspirin 81 mg 12/13/18 10:00 12/14/18 10:33 Ecotrin - PO 81 mg DAILY [facility] Administration Atorvastatin Calcium 80 mg 12/13/18 22:00 12/13/18 22:33 Lipitor - PO 80 mg HS EUGENE Administration Carvedilol 6.25 mg 12/13/18 10:00 12/14/18 10:33 Coreg - PO 6.25 mg BID EUGENE Administration Cyanocobalamin 1,000 mcg 12/13/18 10:00 12/14/18 10:34 Vitamin B12 - PO 1,000 mcg DAILY [facility] Administration Dicloxacillin Sodium 500 mg 12/13/18 06:00 12/14/18 06:56 Dynapen - PO 500 mg TID EUGENE Administration Docusate Sodium 100 mg 12/13/18 01:15 12/14/18 10:31 Colace - PO 100 mg BID [facility] Administration Heparin Sodium (Porcine) 5,000 unit 12/13/18 10:00 12/14/18 10:34 Heparin - SQ 5,000 unit BID [facility] Administration Potassium Chloride/Sodium Chloride 20 meq in 1,000 mls @ 83 mls/hr 12/13/18 10 :45 12/14/18 10:44 Ns+20 Meq Kcl - IV Not Given ASDIR [facility] Insulin Aspart 1 vial 12/13/18 07:00 12/14/18 06:56 Novolog Vial Sliding Scale - SQ Not Given ACHS [facility] Protocol Insulin Detemir 10 units 12/13/18 01:45 12/13/18 22:32 Levemir Vial SQ Not Given HS [facility] Lactic Acid 1 applic 12/13/18 09:30 Lac-Hydrin 12 TP BID PRN xerosis Levothyroxine Sodium 100 mcg/ 225 mcg 12/13/18 07:00 12/14/18 06:55 Levothyroxine Sodium 125 mcg PO 225 mcg DAILY@0700 [facility] Administration Non-Formulary Medication 0.8 mg 12/13/18 10:00 Folic Acid [Folic Acid] PO DAILY [facility] Non-Formulary Medication 30 mg 12/13/18 10:00 Magnesium [Magnesium] PO DAILY [facility] Non-Formulary Medication 1,000 mg 12/13/18 10:00 [place]-3 Fatty Acids [[place]-3] PO DAILY [facility] Oxycodone HCl 5 mg 12/13/18 00:47 12/13/18 19:48 Roxicodone - PO 5 mg Q4H PRN Administration PAIN LEVEL 7 - 10 Phenytoin Sodium 300 mg 12/13/18 10:00 12/14/18 10:33 Dilantin - PO 300 mg BID [facility] Administration Potassium Chloride 10 meq 12/13/18 10:00 12/14/18 10:34 K-Dur - PO 10 meq DAILY [facility] Administration Pyridoxine HCl 50 mg 12/14/18 10:00 12/14/18 10:34 Vitamin B6 - PO 50 mg DAILY [facility] Administration Spironolactone 25 mg 12/13/18 10:00 12/14/18 10:30 Aldactone - PO 25 mg DAILY [facility] Administration Laboratory Last Values WBC 9.0 K/mm3 (4.0-10.0) 12/13/18 05:30 RBC 3.74 M/mm3 (4.00-5.60) L 12/13/18 05:30 Hgb 11.7 GM/dL (11.7-16.9) 12/13/18 05:30 Hct 33.8 % (35.4-49) L 12/13/18 05:30 MCV 90.3 fl (80-96) 12/13/18 05:30 MCH 31.3 pg (25.7-33.7) 12/13/18 05:30 MCHC 34.7 g/dl (32.0-35.9) 12/13/18 05:30 RDW 17.9 % (11.9-15.9) H 12/13/18 05:30 Plt Count 168 K/MM3 (134-434) 12/13/18 05:30 MPV 9.0 fl (7.5-11.1) 12/13/18 05:30 Absolute Neuts (auto) 6.6 K/mm3 (1.5-8.0) 12/13/18 05:30 Neutrophils % 73.4 % (42.8-82.8) 12/13/18 05:30 Lymphocytes % 10.1 % (8-40) D 12/13/18 05:30 Monocytes % 15.1 % (3.8-10.2) H 12/13/18 05:30 Eosinophils % 0.7 % (0-4.5) 12/13/18 05:30 Basophils % 0.7 % (0-2.0) 12/13/18 05:30 Nucleated RBC % 0 % (0-0) 12/13/18 05:30 PT with INR 12.50 SEC (9.7-13.0) 12/13/18 05:30 INR 1.06 (0.83-1.09) 12/13/18 05:30 PTT (Actin FS) 25.7 SECONDS (25.2-36.5) 12/12/18 19:40 Sodium 138 mmol/L (136-145) 12/14/18 06:00 Potassium 3.2 mmol/L (3.5-5.1) L 12/14/18 06:00 Chloride 96 mmol/L (98-107) L 12/14/18 06:00 Carbon Dioxide 35 mmol/L (21-32) H 12/14/18 06:00 Anion Gap 7 MMOL/L (8-16) L 12/14/18 06:00 BUN 44 mg/dL (7-18) H 12/14/18 06:00 Creatinine 1.1 mg/dL (0.55-1.3) 12/14/18 06:00 Creat Clearance w eGFR > 60 (>60) 12/14/18 06:00 POC Glucometer 122 UNITS (80-120) 12/14/18 06:54 Random Glucose 125 mg/dL (74-106) H 12/14/18 06:00 Serum Osmolality Cancelled 12/13/18 07:30 Calcium 8.2 mg/dL (8.5-10.1) L 12/14/18 06:00 Magnesium 3.3 mg/dL (1.8-2.4) H 12/13/18 05:30 Total Bilirubin 1.3 mg/dL (0.2-1) H 12/13/18 05:30 AST 34 U/L (15-37) 12/13/18 05:30 ALT 33 U/L (13-61) 12/13/18 05:30 Alkaline Phosphatase 163 U/L (45-117) H 12/13/18 05:30 Total Protein 6.6 g/dl (6.4-8.2) 12/13/18 05:30 Albumin 3.3 g/dl (3.4-5.0) L 12/13/18 05:30 Urine Osmolality 452 mosm/kg (300-900) 12/13/18 05:30 Ur Random Sodium 21 MMOL/L (40-220) L 12/13/18 05:30 Blood Type O POSITIVE 12/12/18 19:46 Antibody Screen Negative 12/12/18 19:46 tele: afib, rate ok echo 04/2018: mild lve, lvef 40, global hk, mild rve, mild dec rv fcn, maycol, mod mr, mild-mod tr, sev phtn, mild ar cxr: no chf ecg: afib, 76, rbbb a/p: 78 m hx cad, cabg, pafib, htn, hld, syst chf, hypothyroid here w/p fall. fall: -mechanical fall, no signs cardiac etiology -s/p hip fx, seen by ortho, no surgery needed, rec'd PT cad, cabg: -stable, no angina, no signs acs -cont home meds afib: -rate controlled on amio, coreg -not on ac 2/2 frequent falls, cont asa htn: -cont home meds hld: -cont statin chronic syst chf: -stable vol status, resume home diuretics
--- NOTE | 2018-12-14 13:50 | PN ---
Progress Note (short form) - Note Progress Note: Painful elongated thickened toe nails with xerosis b/l feet. +tender dystrophic mycotic nails with subungual debris, +inflammed nail beds, + distal seperation of nail from beds, +xerosis bilateral feet, +3rd toe lateral aspect blood blister non infected dry, patient states it has been there for long time does not want any intervention Onychomycosis pain xerosis blister non infected Debride nails x 10. Discussed foot care. Should follow outpatient with [facility]. DC from podiatry standpoint. Please reconsult if need be.
--- NOTE | 2018-12-14 13:57 | PN ---
Progress Note, Physician History of Present Illness: doing well no issues - Current Medication List Current Medications: Active Medications Acetaminophen (Tylenol -) 325 mg PO Q4H PRN PRN Reason: PAIN LEVEL 7 - 10 Stop: 12/16/18 00:46 Alprazolam (Xanax -) 1 mg PO BID [facility] Last Admin: 12/14/18 10:35 Dose: 1 mg Amiodarone HCl (Cordarone -) 300 mg PO DAILY [facility] Last Admin: 12/14/18 10:31 Dose: 300 mg Ascorbic Acid (Vitamin C -) 1,000 mg PO DAILY [facility] Last Admin: 12/14/18 10:35 Dose: 1,000 mg Aspirin (Ecotrin -) 81 mg PO DAILY [facility] Last Admin: 12/14/18 10:33 Dose: 81 mg Atorvastatin Calcium (Lipitor -) 80 mg PO HS [facility] Last Admin: 12/13/18 22:33 Dose: 80 mg Carvedilol (Coreg -) 6.25 mg PO BID [facility] Last Admin: 12/14/18 10:33 Dose: 6.25 mg Cyanocobalamin (Vitamin B12 -) 1,000 mcg PO DAILY [facility] Last Admin: 12/14/18 10:34 Dose: 1,000 mcg Dicloxacillin Sodium (Dynapen -) 500 mg PO TID [facility] Last Admin: 12/14/18 06:56 Dose: 500 mg Docusate Sodium (Colace -) 100 mg PO BID [facility] Last Admin: 12/14/18 10:31 Dose: 100 mg Furosemide (Lasix -) 40 mg PO BID@0600,1400 [facility] Heparin Sodium (Porcine) (Heparin -) 5,000 unit SQ BID [facility] Last Admin: 12/14/18 10:34 Dose: 5,000 unit Potassium Chloride/Sodium Chloride (Ns+20 Meq Kcl -) 20 meq in 1,000 mls @ 83 mls/hr IV ASDIR [facility] Last Admin: 12/14/18 10:44 Dose: Not Given Insulin Aspart (Novolog Vial Sliding Scale -) 1 vial SQ [facility]; Protocol Last Admin: 12/14/18 12:07 Dose: Not Given Insulin Detemir (Levemir Vial) 10 units SQ HS [facility] Last Admin: 12/13/18 22:32 Dose: Not Given Lactic Acid (Lac-Hydrin 12) 1 applic TP BID PRN PRN Reason: xerosis Levothyroxine Sodium 100 mcg/ (Levothyroxine Sodium 125 mcg) 225 mcg PO DAILY@ 0700 [facility] Last Admin: 12/14/18 06:55 Dose: 225 mcg Non-Formulary Medication (Folic Acid [Folic Acid]) 0.8 mg PO DAILY [facility] Non-Formulary Medication (Magnesium [Magnesium]) 30 mg PO DAILY [facility] Non-Formulary Medication ([place]-3 Fatty Acids [[place]-3]) 1,000 mg PO DAILY [facility] Oxycodone HCl (Roxicodone -) 5 mg PO Q4H PRN PRN Reason: PAIN LEVEL 7 - 10 Last Admin: 12/13/18 19:48 Dose: 5 mg Phenytoin Sodium (Dilantin -) 300 mg PO BID [facility] Last Admin: 12/14/18 10:33 Dose: 300 mg Potassium Chloride (K-Dur -) 10 meq PO DAILY [facility] Last Admin: 12/14/18 10:34 Dose: 10 meq Pyridoxine HCl (Vitamin B6 -) 50 mg PO DAILY [facility] Last Admin: 12/14/18 10:34 Dose: 50 mg Spironolactone (Aldactone -) 25 mg PO DAILY [facility] Last Admin: 12/14/18 10:30 Dose: 25 mg - Objective Vital Signs: Vital Signs Temperature 98.6 F 12/14/18 09:38 Pulse Rate 67 12/14/18 09:38 Respiratory Rate 20 12/14/18 09:38 Blood Pressure 100/52 L 12/14/18 09:38 O2 Sat by Pulse Oximetry (%) 94 L 12/14/18 09:00 Constitutional: Yes: No Distress, Calm Cardiovascular: Yes: Regular Rate and Rhythm Respiratory: Yes: Regular, CTA Bilaterally Gastrointestinal: Yes: Normal Bowel Sounds, Soft Musculoskeletal: Yes: WNL Extremities: Yes: Other Neurological: Yes: Alert, Oriented Psychiatric: Yes: Alert, Oriented Labs: CBC, BMP 12/13/18 05:30 12/14/18 06:00 INR, PTT INR 1.06 (0.83-1.09) 12/13/18 05:30 Assessment/Plan Problem List - Problems (1) Intertrochanteric fracture Code(s): S72.143A - DISPLACED INTERTROCHANTERIC FRACTURE OF UNSP FEMUR, INIT Qualifiers: Encounter type: initial encounter Fracture type: closed Fracture alignment: nondisplaced Laterality: left Qualified Code(s): S72.145A - Nondisplaced intertrochanteric fracture of left femur, initial encounter for closed fracture (2) TRUDY (acute kidney injury) Code(s): N17.9 - ACUTE KIDNEY FAILURE, UNSPECIFIED (3) CAD (coronary artery disease) Code(s): I25.10 - ATHSCL HEART DISEASE OF [place] CORONARY ARTERY W/O ANG PCTRS Qualifiers: Coronary Disease-Associated Artery/Lesion type: bypass graft [place] vs. transplanted heart: [place] heart Associated angina: angina presence unspecified Qualified Code(s): I25.810 - Atherosclerosis of coronary artery bypass graft(s) without angina pectoris (4) HTN (hypertension) Code(s): I10 - ESSENTIAL (PRIMARY) HYPERTENSION Qualifiers: Hypertension type: essential hypertension Qualified Code(s): I10 - Essential (primary) hypertension h/o of osteo plan continue to monitor await for ortho final plan rest as per the team continue suppressive therapy
[2018-12-14] MEDS: FUROSEMIDE 40 MG TABLET (FP) PO SCH (14:47)
[2018-12-14] MEDS: oxyCODONE HCL 5 MG TABLET PO PRN ×2 (14:57→18:42)
[2018-12-14] MEDS: ACETAMINOPHEN 325 MG TABLET (FP) PO PRN ×3 (14:59→23:01)
[2018-12-14] MEDS: INSULIN (LEVEMIR) 100 UNITS/ML UNITS SQ SCH (21:58)
[2018-12-14] MEDS: BACITRACIN 15 GM TUBE TOPICAL OINTMENT TP SCH (22:03)
[2018-12-14] MEDS: ATORVASTATIN CA 80 MG TABLET (FP) PO SCH (22:31)
--- NOTE | 2018-12-15 02:32 | PN ---
Progress Note (short form) - Note Progress Note: Called to evaluate pt, d/t L sided chest pain with deep inspiration. Upon examination, pt denies chest pain, resting comfortably. Repeat EKG ordered - in afib with rate 65bpm. Without acute change from previous. Trop 0.08. Will trend; next ordered for AM will also repeat EKG in AM cardio is on case. possible 2/2 pt's fall, as trop has not been trended during admission until today. however will f/u next trop and reevaluate. Rhonda Byrd MD PGY-2 Night team
[2018-12-15] MEDS: oxyCODONE HCL 5 MG TABLET PO PRN (05:09)
[2018-12-15] MEDS: ACETAMINOPHEN 325 MG TABLET (FP) PO PRN (05:11)
[2018-12-15] MEDS ORDERED: LEVOTHYROXINE NA 100 MCG TABLET (FP) ONE (05:55)
[2018-12-15] MEDS ORDERED: LEVOTHYROXINE NA 125 MCG TABLET (FP) ONE (05:55)
[2018-12-15] MEDS: FUROSEMIDE 40 MG TABLET (FP) PO SCH ×2 (06:14→15:00)
[2018-12-15] MEDS: LEVOTHYROXINE 100 MCG, LEVOTHYROXINE 125 MCG PO SCH (06:14)
[2018-12-15] MEDS: DICLOXACILLIN SODIUM 250 MG CAPSULE PO SCH ×3 (06:19→21:57)
[2018-12-15] MEDS: INSULIN SLIDING SCALE (NOVOLOG) 1 VIAL SQ SCH ×4 (06:21→22:03)
[2018-12-15 06:47] LABS: ANION GAP 5 MMOL/L (8-16); BLOOD UREA NITROGEN 47 mg/dL (7-18); CHLORIDE 96 mmol/L (98-107); CO2 34 mmol/L (21-32); CREATININE 1.3 mg/dL (0.55-1.3); GLUCOSE,RANDOM 106 mg/dL (74-106); POTASSIUM 4.1 mmol/L (3.5-5.1); SODIUM 135 mmol/L (136-145)
--- NOTE | 2018-12-15 07:22 | PN ---
Progress Note (short form) - Note Progress Note: ORTHOPEDIC SURGERY PROGRESS NOTE Department of Orthopedic Surgery SUBJECTIVE Episode of chest pain overnight. No acute changes on ekg and negative troponins as per overnight medical team. No new complaints currently; resting comfortably in bed. Denies chest pain, shortness of breath, or calf pain. No nausea or vomiting. Tolerating oral intake. Pain control improving. Patient states he has a AFO for his chronic right foot drop but is unable to currently wear it due to the scab on his leg. PHYSICAL EXAMINATION General: Alert, oriented, cooperative and no distress. Right Upper Extremity: Right dorsal forearm dressed with xeroform and kerlex. Muscle mass equal and symmetric to contralateral side. No masses or effusions noted. No tenderness to palpation. Full passive and active ROM, free from pain. Joints stable with no pathologic laxity. M/R/U/MSK/AX motor intact; SILT distally; 2+ radial pulses; Cap refill brisk. Tone and reflexes normal. Right Lower Extremity: Leg swelling. Hypertrophic scab anterior leg. Muscle mass equal and symmetric to contralateral side. Nontender throughout rest of extremity. No cords or calf tenderness. Negative log roll. Able to SLR. No pain with passive hip range of motion. Unable to DF/PF or move toes. SILT distally; 2 + PT pulses; Cap refill brisk. Tone and reflexes normal. Negative Babinski. Left Lower Extremity: Leg swelling. Hypertrophic scab posterior leg. Muscle mass equal and symmetric to contralateral side. No masses or effusions noted. Tender to palpation left greater trochanter; nontender throughout rest of extremity. No cords or calf tenderness. Negative log roll. Able to SLR. No pain with passive hip range of motion. TA/GS motor intact; SILT distally; 2+ DP pulses; Cap refill brisk. Tone and reflexes normal. Negative Babinski. DVT Exam: No evidence of DVT seen on physical exam; No cords or calf tenderness Intake & Output 12/13/18 12/14/18 12/15/18 23:59 23:59 23:59 Intake Total 2429 1937 1236 Output Total 1400 1700 300 Balance 1029 237 936 Intake: IV 1529 1577 996 LACTATED RINGERS SOLUTION 450 1,000 ml In 1,000 ml @ 75 mls/hr IV ASDIR [facility] Rx #:[id number] NS+20 MEQ KCL - 20 meq In 1079 1577 996 1,000 ml @ 83 mls/hr IV ASDIR [facility] Rx#:[id number] IVPB 600 Oral 300 240 240 Oral Supplement 120 Output: Urine 1400 1700 300 Void 1400 1700 300 Other: Voiding Method Urinal Urinal # Unmeasured Voids Void 2 Weight 180 lb 12.8 oz Height 5 ft 11 in Weight Measurement Method Patient Lift Scale Active Medications Generic Name Dose Route Start Last Admin Trade Name Freq PRN Reason Stop Dose Admin Acetaminophen 325 mg 12/13/18 00:47 12/15/18 05:11 Tylenol - PO 12/16/18 00:46 325 mg Q4H PRN Administration PAIN LEVEL 7 - 10 Alprazolam 1 mg 12/13/18 07:58 12/14/18 21:55 Xanax - PO 1 mg BID [facility] Administration Amiodarone HCl 300 mg 12/13/18 10:00 12/14/18 10:31 Cordarone - PO 300 mg DAILY [facility] Administration Ascorbic Acid 1,000 mg 12/13/18 10:00 12/14/18 10:35 Vitamin C - PO 1,000 mg DAILY [facility] Administration Aspirin 81 mg 12/13/18 10:00 12/14/18 10:33 Ecotrin - PO 81 mg DAILY [facility] Administration Atorvastatin Calcium 80 mg 12/13/18 22:00 12/14/18 22:31 Lipitor - PO 80 mg HS [facility] Administration Bacitracin 1 applic 12/14/18 22:00 12/14/18 22:03 Bacitracin - TP 1 applic BID [facility] Administration Carvedilol 6.25 mg 12/13/18 10:00 12/14/18 21:54 Coreg - PO 6.25 mg BID [facility] Administration Cyanocobalamin 1,000 mcg 12/13/18 10:00 12/14/18 10:34 Vitamin B12 - PO 1,000 mcg DAILY [facility] Administration Dicloxacillin Sodium 500 mg 12/13/18 06:00 12/15/18 06:19 Dynapen - PO 500 mg TID [facility] Administration Docusate Sodium 100 mg 12/13/18 01:15 12/14/18 21:54 Colace - PO 100 mg BID [facility] Administration Furosemide 40 mg 12/14/18 14:00 12/15/18 06:14 Lasix - PO 40 mg BID@0600,1400 [facility] Administration Heparin Sodium (Porcine) 5,000 unit 12/13/18 10:00 12/14/18 21:56 Heparin - SQ 5,000 unit BID [facility] Administration Potassium Chloride/Sodium Chloride 20 meq in 1,000 mls @ 83 mls/hr 12/13/18 10 :45 12/14/18 17:29 Ns+20 Meq Kcl - IV 83 mls/hr [facility] Administration Insulin Aspart 1 vial 12/13/18 07:00 12/15/18 06:21 Novolog Vial Sliding Scale - SQ Not Given ACHS [facility] Protocol Insulin Detemir 10 units 12/13/18 01:45 12/14/18 21:58 Levemir Vial SQ 10 units HS [facility] Administration Lactic Acid 1 applic 12/13/18 09:30 Lac-Hydrin 12 TP BID PRN xerosis Levothyroxine Sodium 100 mcg/ 225 mcg 12/13/18 07:00 12/15/18 06:14 Levothyroxine Sodium 125 mcg PO 225 mcg DAILY@0700 [facility] Administration Non-Formulary Medication 0.8 mg 12/13/18 10:00 Folic Acid [Folic Acid] PO DAILY [facility] Non-Formulary Medication 30 mg 12/13/18 10:00 Magnesium [Magnesium] PO DAILY [facility] Non-Formulary Medication 1,000 mg 12/13/18 10:00 [place]-3 Fatty Acids [[place]-3] PO DAILY [facility] Oxycodone HCl 5 mg 12/13/18 00:47 12/15/18 05:09 Roxicodone - PO 5 mg Q4H PRN Administration PAIN LEVEL 7 - 10 Phenytoin Sodium 300 mg 12/13/18 10:00 12/14/18 21:54 Dilantin - PO 300 mg BID [facility] Administration Potassium Chloride 10 meq 12/13/18 10:00 12/14/18 10:34 K-Dur - PO 10 meq DAILY [facility] Administration Pyridoxine HCl 50 mg 12/14/18 10:00 12/14/18 10:34 Vitamin B6 - PO 50 mg DAILY [facility] Administration Spironolactone 25 mg 12/13/18 10:00 12/14/18 10:30 Aldactone - PO 25 mg DAILY [facility] Administration Vital Signs (last) Temp Pulse Resp BP Pulse Ox 97.5 F L 71 20 110/69 99 12/15/18 05:49 12/15/18 05:49 02/11/19 05:49 12/15/18 05:49 12/14/18 21:00 Laboratory (coagulation) PT with INR 12.50 SEC (9.7-13.0) 12/13/18 05:30 Laboratory 12/13/18 05:30 12/15/18 05:30 IMAGING MRI Left Hip: Left greater trochanter fracture without extension into the lesser trochanter. ASSESSMENT AND PLAN Ray Lackey is a 78 year old male presenting status post mechanical fall with a left sided greater trochanteric fracture without intertrochanteric extension. The patient also has a history of chronic osteomyelitis of the left tibia and is being treated on chronic suppressive antibiotics. We have reviewed the imaging and clinical findings in detail, as well as their potential implications. - Abduction precautions - Physical therapy consult - Wound care consult - Podiatry consult appreciated - Pain control: Transition to oral pain medications, minimize narcotic use - DVT prophylaxis - Continue antibiotics for chronic osteomyelitis - Ice/Elevation - Elevate HOB, encourage oral intake - Appreciate medical management (Nutrition optimization, decubitus precautions heel/sacrum) All questions were answered. Thank you for involving our team in the care of this patient. Will continue to follow. [phone].
--- NOTE | 2018-12-15 10:07 | EKG ---
Test Reason : Blood Pressure : / mmHG Vent. Rate : 067 BPM Atrial Rate : 288 BPM P-R Int : 000 ms QRS Dur : 144 ms QT Int : 508 ms P-R-T Axes : 000 -40 042 degrees QTc Int : 536 ms ATRIAL FIBRILLATION VS. 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
[2018-12-15] MEDS: ALPRAZolam 0.25 MG TABLET PO SCH ×2 (10:55→21:56)
[2018-12-15] MEDS: CYANOCOBALAMIN 1,000 MCG TABLET (FP) PO SCH (10:55)
[2018-12-15] MEDS: DOCUSATE SODIUM 100 MG CAPSULE (FP) PO SCH ×2 (10:56→21:56)
[2018-12-15] MEDS: SPIRONOLACTONE 25 MG TABLET (FP) PO SCH (10:56)
[2018-12-15] MEDS: AMIODARONE HCL 200 MG TABLET (FP) PO SCH (10:56)
[2018-12-15] MEDS: ASCORBIC ACID 500 MG TABLET (FP) PO SCH (10:57)
[2018-12-15] MEDS: POTASSIUM CHLORIDE TABS 10 MEQ TABLET.ER (FP) PO SCH (10:57)
[2018-12-15] MEDS: ASPIRIN COATED 81 MG TABLET.EC PO SCH (10:58)
[2018-12-15] MEDS: CARVEDILOL 6.25 MG TABLET (FP) PO SCH ×2 (10:58→21:56)
[2018-12-15] MEDS: HEPARIN NA (PORCINE) 5,000 UNITS/ML 1ML VIAL SQ SCH ×2 (10:58→21:58)
[2018-12-15] MEDS: PHENYTOIN NA EXTENDED 100 MG CAPSULE (FP) PO SCH ×2 (11:00→21:55)
[2018-12-15] MEDS: PYRIDOXINE HCL (B-6) 50 MG TABLET (FP) PO SCH (11:00)
[2018-12-15] MEDS: BACITRACIN 15 GM TUBE TOPICAL OINTMENT TP SCH ×2 (11:08→22:02)
[2018-12-15] MEDS: SODIUM CHLORIDE 0.9%/KCL 20 MEQ/1,000 ML INFUS.BAG IV SCH (11:35)
--- NOTE | 2018-12-15 12:41 | PN ---
Progress Note (short form) - Note Progress Note: pt seen/ examined chart reviewed all f/u noted episode of cp -earlier today comfortable ekg - reviewed troponins-- not reported-- called lab to add echo- pending cardiology to follow No surgical intervention planned Vital Signs Temp 97.5 F L 12/15/18 05:49 Pulse 71 12/15/18 05:49 Resp 20 12/15/18 05:49 BP 110/69 12/15/18 05:49 Pulse Ox 99 12/14/18 21:00 Intake & Output 12/14/18 12/15/18 12/15/18 23:59 11:59 23:59 Intake Total 1356 1236 Output Total 500 300 Balance 856 936 Intake: IV 996 996 NS+20 MEQ KCL - 20 meq In 996 996 1,000 ml @ 83 mls/hr IV ASDIR [facility] Rx#:[id number] Oral 240 240 Oral Supplement 120 Output: Urine 500 300 Void 500 300 Other: Voiding Method Urinal Urinal Active Medications Acetaminophen (Tylenol -) 325 mg PO Q4H PRN PRN Reason: PAIN LEVEL 7 - 10 Stop: 12/16/18 00:46 Last Admin: 12/15/18 05:11 Dose: 325 mg Alprazolam (Xanax -) 1 mg PO BID [facility] Last Admin: 12/15/18 10:55 Dose: 1 mg Amiodarone HCl (Cordarone -) 300 mg PO DAILY [facility] Last Admin: 12/15/18 10:56 Dose: 300 mg Ascorbic Acid (Vitamin C -) 1,000 mg PO DAILY [facility] Last Admin: 12/15/18 10:57 Dose: 1,000 mg Aspirin (Ecotrin -) 81 mg PO DAILY [facility] Last Admin: 12/15/18 10:58 Dose: 81 mg Atorvastatin Calcium (Lipitor -) 80 mg PO HS [facility] Last Admin: 12/14/18 22:31 Dose: 80 mg Bacitracin (Bacitracin -) 1 applic TP BID [facility] Last Admin: 12/15/18 11:08 Dose: 1 applic Carvedilol (Coreg -) 6.25 mg PO BID [facility] Last Admin: 12/15/18 10:58 Dose: 6.25 mg Cyanocobalamin (Vitamin B12 -) 1,000 mcg PO DAILY [facility] Last Admin: 02/11/19 10:55 Dose: 1,000 mcg Dicloxacillin Sodium (Dynapen -) 500 mg PO TID [facility] Last Admin: 12/15/18 06:19 Dose: 500 mg Docusate Sodium (Colace -) 100 mg PO BID [facility] Last Admin: 12/15/18 10:56 Dose: 100 mg Furosemide (Lasix -) 40 mg PO BID@0600,1400 [facility] Last Admin: 12/15/18 06:14 Dose: 40 mg Heparin Sodium (Porcine) (Heparin -) 5,000 unit SQ BID [facility] Last Admin: 12/15/18 10:58 Dose: 5,000 unit Potassium Chloride/Sodium Chloride (Ns+20 Meq Kcl -) 20 meq in 1,000 mls @ 83 mls/hr IV ASDIR [facility] Last Admin: 12/14/18 17:29 Dose: 83 mls/hr Insulin Aspart (Novolog Vial Sliding Scale -) 1 vial SQ ACHS [facility]; Protocol Last Admin: 12/15/18 06:21 Dose: Not Given Insulin Detemir (Levemir Vial) 10 units SQ HS [facility] Last Admin: 12/14/18 21:58 Dose: 10 units Lactic Acid (Lac-Hydrin 12) 1 applic TP BID PRN PRN Reason: xerosis Levothyroxine Sodium 100 mcg/ (Levothyroxine Sodium 125 mcg) 225 mcg PO DAILY@ 0700 [facility] Last Admin: 12/15/18 06:14 Dose: 225 mcg Non-Formulary Medication (Folic Acid [Folic Acid]) 0.8 mg PO DAILY [facility] Non-Formulary Medication (Magnesium [Magnesium]) 30 mg PO DAILY [facility] Non-Formulary Medication ([place]-3 Fatty Acids [[place]-3]) 1,000 mg PO DAILY [facility] Oxycodone HCl (Roxicodone -) 5 mg PO Q4H PRN PRN Reason: PAIN LEVEL 7 - 10 Last Admin: 12/15/18 05:09 Dose: 5 mg Phenytoin Sodium (Dilantin -) 300 mg PO BID [facility] Last Admin: 12/15/18 11:00 Dose: 300 mg Potassium Chloride (K-Dur -) 10 meq PO DAILY [facility] Last Admin: 12/15/18 10:57 Dose: 10 meq Pyridoxine HCl (Vitamin B6 -) 50 mg PO DAILY [facility] Last Admin: 12/15/18 11:00 Dose: 50 mg Spironolactone (Aldactone -) 25 mg PO DAILY [facility] Last Admin: 12/15/18 10:56 Dose: 25 mg CBC, BMP 12/13/18 05:30 12/15/18 05:30 Troponin - Pending physical exam Awake and comfortable No distress Neck supple Pupils reactive Lungs-clear heart sounds irregular Abdomen--soft extremities--No edema Assessment and plan Left greater trochanter fracture Atypical chest pain Atrial fibrillation coronary artery disease Continue present care cardiology to follow Once cleared by cardiology----need rehabilitation Discussed with continuous pillowcase cutter As well as nursing staff Will follow Problem List - Problems (1) Intertrochanteric fracture Code(s): S72.143A - DISPLACED INTERTROCHANTERIC FRACTURE OF UNSP FEMUR, INIT Qualifiers: Encounter type: initial encounter Fracture type: closed Fracture alignment: nondisplaced Laterality: left Qualified Code(s): S72.145A - Nondisplaced intertrochanteric fracture of left femur, initial encounter for closed fracture (2) Atrial fibrillation Code(s): I48.91 - UNSPECIFIED ATRIAL FIBRILLATION Qualifiers: Atrial fibrillation type: persistent Qualified Code(s): I48.1 - Persistent atrial fibrillation (3) CAD (coronary artery disease) Code(s): I25.10 - ATHSCL HEART DISEASE OF [place] CORONARY ARTERY W/O ANG PCTRS Qualifiers: Coronary Disease-Associated Artery/Lesion type: bypass graft [place] vs. transplanted heart: [place] heart Associated angina: angina presence unspecified Qualified Code(s): I25.810 - Atherosclerosis of coronary artery bypass graft(s) without angina pectoris (4) Chest pain Code(s): R07.9 - CHEST PAIN, UNSPECIFIED Qualifiers: Chest pain type: other chest pain Qualified Code(s): R07.89 - Other chest pain; R07.8 - Other chest pain (5) HTN (hypertension) Code(s): I10 - ESSENTIAL (PRIMARY) HYPERTENSION Qualifiers: Hypertension type: essential hypertension Qualified Code(s): I10 - Essential (primary) hypertension (6) S/P CABG (coronary artery bypass graft) Code(s): Z95.1 - PRESENCE OF AORTOCORONARY BYPASS GRAFT
--- NOTE | 2018-12-15 14:27 | PN ---
Progress Note, Physician History of Present Illness: events noted episodes of cp currently ok ortho probably not going to intervene surgically - Current Medication List Current Medications: Active Medications Acetaminophen (Tylenol -) 325 mg PO Q4H PRN PRN Reason: PAIN LEVEL 7 - 10 Stop: 12/16/18 00:46 Last Admin: 12/15/18 05:11 Dose: 325 mg Alprazolam (Xanax -) 1 mg PO BID [facility] Last Admin: 12/15/18 10:55 Dose: 1 mg Amiodarone HCl (Cordarone -) 300 mg PO DAILY [facility] Last Admin: 12/15/18 10:56 Dose: 300 mg Ascorbic Acid (Vitamin C -) 1,000 mg PO DAILY [facility] Last Admin: 12/15/18 10:57 Dose: 1,000 mg Aspirin (Ecotrin -) 81 mg PO DAILY [facility] Last Admin: 12/15/18 10:58 Dose: 81 mg Atorvastatin Calcium (Lipitor -) 80 mg PO HS [facility] Last Admin: 12/14/18 22:31 Dose: 80 mg Bacitracin (Bacitracin -) 1 applic TP BID [facility] Last Admin: 12/15/18 11:08 Dose: 1 applic Carvedilol (Coreg -) 6.25 mg PO BID [facility] Last Admin: 12/15/18 10:58 Dose: 6.25 mg Cyanocobalamin (Vitamin B12 -) 1,000 mcg PO DAILY [facility] Last Admin: 12/15/18 10:55 Dose: 1,000 mcg Dicloxacillin Sodium (Dynapen -) 500 mg PO TID [facility] Last Admin: 12/15/18 06:19 Dose: 500 mg Docusate Sodium (Colace -) 100 mg PO BID [facility] Last Admin: 12/15/18 10:56 Dose: 100 mg Furosemide (Lasix -) 40 mg PO BID@0600,1400 [facility] Last Admin: 12/15/18 06:14 Dose: 40 mg Heparin Sodium (Porcine) (Heparin -) 5,000 unit SQ BID [facility] Last Admin: 12/15/18 10:58 Dose: 5,000 unit Potassium Chloride/Sodium Chloride (Ns+20 Meq Kcl -) 20 meq in 1,000 mls @ 83 mls/hr IV ASDIR [facility] Last Admin: 12/14/18 17:29 Dose: 83 mls/hr Insulin Aspart (Novolog Vial Sliding Scale -) 1 vial SQ ACHS [facility]; Protocol Last Admin: 12/15/18 06:21 Dose: Not Given Insulin Detemir (Levemir Vial) 10 units SQ HS [facility] Last Admin: 12/14/18 21:58 Dose: 10 units Lactic Acid (Lac-Hydrin 12) 1 applic TP BID PRN PRN Reason: xerosis Levothyroxine Sodium 100 mcg/ (Levothyroxine Sodium 125 mcg) 225 mcg PO DAILY@ 0700 [facility] Last Admin: 12/15/18 06:14 Dose: 225 mcg Non-Formulary Medication (Folic Acid [Folic Acid]) 0.8 mg PO DAILY [facility] Non-Formulary Medication (Magnesium [Magnesium]) 30 mg PO DAILY [facility] Non-Formulary Medication ([place]-3 Fatty Acids [[place]-3]) 1,000 mg PO DAILY [facility] Oxycodone HCl (Roxicodone -) 5 mg PO Q4H PRN PRN Reason: PAIN LEVEL 7 - 10 Last Admin: 12/15/18 05:09 Dose: 5 mg Phenytoin Sodium (Dilantin -) 300 mg PO BID [facility] Last Admin: 12/15/18 11:00 Dose: 300 mg Potassium Chloride (K-Dur -) 10 meq PO DAILY [facility] Last Admin: 12/15/18 10:57 Dose: 10 meq Pyridoxine HCl (Vitamin B6 -) 50 mg PO DAILY [facility] Last Admin: 12/15/18 11:00 Dose: 50 mg Spironolactone (Aldactone -) 25 mg PO DAILY [facility] Last Admin: 12/15/18 10:56 Dose: 25 mg - Objective Vital Signs: Vital Signs Temperature 97.5 F L 12/15/18 05:49 Pulse Rate 71 12/15/18 05:49 Respiratory Rate 20 12/15/18 05:49 Blood Pressure 110/69 12/15/18 05:49 O2 Sat by Pulse Oximetry (%) 99 12/14/18 21:00 Constitutional: Yes: No Distress, Calm Cardiovascular: Yes: Regular Rate and Rhythm Respiratory: Yes: Regular, CTA Bilaterally Gastrointestinal: Yes: Normal Bowel Sounds Musculoskeletal: Yes: WNL Extremities: Yes: Other Neurological: Yes: Alert Psychiatric: Yes: Alert, Oriented Labs: CBC, BMP 12/13/18 05:30 12/15/18 05:30 INR, PTT INR 1.06 (0.83-1.09) 12/13/18 05:30 Assessment/Plan Problem List - Problems (1) Intertrochanteric fracture Code(s): S72.143A - DISPLACED INTERTROCHANTERIC FRACTURE OF UNSP FEMUR, INIT Qualifiers: Encounter type: initial encounter Fracture type: closed Fracture alignment: nondisplaced Laterality: left Qualified Code(s): S72.145A - Nondisplaced intertrochanteric fracture of left femur, initial encounter for closed fracture (2) TRUDY (acute kidney injury) Code(s): N17.9 - ACUTE KIDNEY FAILURE, UNSPECIFIED (3) CAD (coronary artery disease) Code(s): I25.10 - ATHSCL HEART DISEASE OF [place] CORONARY ARTERY W/O ANG PCTRS Qualifiers: Coronary Disease-Associated Artery/Lesion type: bypass graft [place] vs. transplanted heart: [place] heart Associated angina: angina presence unspecified Qualified Code(s): I25.810 - Atherosclerosis of coronary artery bypass graft(s) without angina pectoris (4) HTN (hypertension) Code(s): I10 - ESSENTIAL (PRIMARY) HYPERTENSION Qualifiers: Hypertension type: essential hypertension Qualified Code(s): I10 - Essential (primary) hypertension h/o of osteo plan continue to monitor monitor closely rest as per the team continue suppressive therapy
--- NOTE | 2018-12-15 15:32 | ECHO ---
Name: KLEBER CHRISTIAN Exam:Adult Echocardiogram Study Date: 12/15/2018 02:00 PM Age: 78 yrs Reason For Study: CAD ATRIAL FIBRILLATION Height: 71 in Weight: 180 lb BSA: 2.0 m2 MMode/2D Measurements & Calculations IVSd: 0.82 cm Ao root diam: 3.5 cm LVIDd: 5.6 cm LA dimension: 5.3 cm LVIDs: 4.8 cm LVPWd: 0.93 cm EDV(Teich): 155.1 ml TAPSE: 2.2 cm ESV(Teich): 109.0 ml Doppler Measurements & Calculations MV E max eris: 97.5 cm/sec Ao V2 max: 97.1 cm/sec MV A max eris: 27.8 cm/sec Ao max P.8 mmHg MV E/A: 3.5 MV dec time: 0.22 sec LV V1 max P.76 mmHg MR max eris: 400.5 cm/sec LV V1 max: 43.7 cm/sec MR max P.3 mmHg TR max eris: 254.8 cm/sec Med Peak E' Eris: 7.1 cm/sec TR max P.0 mmHg Med E/e': 13.8 Lat Peak E' Eris: 6.0 cm/sec Lat E/e': 16.2 Procedure A complete two-dimensional transthoracic echocardiogram was performed (2D, M-mode, Doppler and color flow Doppler). Left Ventricle The left ventricle is normal in size. Left ventricular systolic function is severely reduced. Ejectio n Fraction = 25-30%. There is severe global hypokinesis of the left ventricle. Right Ventricle The right ventricle is normal size. The right ventricular systolic function is mildly reduced. Atria The left atrium is moderately dilated. Right atrial size is normal. Mitral Valve There is mild mitral annular calcification. There is borderline mitral valve prolapse. Prolapse of th e anterior mitral leaflet. There is moderate mitral regurgitation. The mitral regurgitant jet is eccent rically directed. The mitral regurgitant jet is posteriorly directed, which is consistent with anterior leafl et pathology. Tricuspid Valve The tricuspid valve is normal in structure and function. There is moderate tricuspid regurgitation. P ulmonary artery systolic pressure is at least 35 mmHg if RA pressure is assumend 3 mmHg. Aortic Valve There is mild aortic sclerosis.;. Trace aortic regurgitation. Pulmonic Valve The pulmonic valve is not well visualized. Great Vessels The aortic root is normal size. Pericardium/Pleura There is no pericardial effusion. Interpretation Summary The left ventricle is normal in size. Left ventricular systolic function is severely reduced. There is severe global hypokinesis of the left ventricle. Ejection Fraction = 25-30%. The right ventricular systolic function is mildly reduced. The left atrium is moderately dilated. Right atrial size is normal. There is mild mitral annular calcification. There is borderline mitral valve prolapse. Prolapse of the anterior mitral leaflet. There is moderate mitral regurgitation. The mitral regurgitant jet is eccentrically directed. The mitral regurgitant jet is posteriorly directed, which is consistent with anterior leaflet patholo gy. There is moderate tricuspid regurgitation. Pulmonary artery systolic pressure is at least 35 mmHg if RA pressure is assumend 3 mmHg There is mild aortic sclerosis. Trace aortic regurgitation. There is no pericardial effusion. David Galaviz MD 12/15/2018 03:32 PM
[2018-12-15] MEDS: ATORVASTATIN CA 80 MG TABLET (FP) PO SCH (21:55)
[2018-12-15] MEDS: INSULIN (LEVEMIR) 100 UNITS/ML UNITS SQ SCH (21:58)
--- NOTE | 2018-12-15 22:15 | PN ---
Progress Note (short form) - Note Progress Note: Dr. Lynch's consult reviewed and coverage appreciated. 78 year old male admitted with h/o of a fall and fracture of the left greater trochanter. Known case of CAD/S/p CABG in the . Severe LV systolic dysfunction, severely reduced LVEF 25-30% on echocardiogram, MVP, moderate MR and TR. hypertension, paroxymal atrial fibrillation, hyperlipidemia, IDDM, s/p LV failure prior to CABG. H/o hypothyroidism, H/o chronic lymphedema of the lower extremities. No chest pain or discomfort, no SOB, no dizziness or syncope. No palpitations. Active Medications Alprazolam (Xanax -) 1 mg PO BID [facility] Last Admin: 12/16/18 10:31 Dose: Not Given Amiodarone HCl (Cordarone -) 300 mg PO DAILY [facility] Last Admin: 12/16/18 10:09 Dose: 300 mg Ascorbic Acid (Vitamin C -) 1,000 mg PO DAILY [facility] Last Admin: 12/16/18 10:09 Dose: 1,000 mg Aspirin (Ecotrin -) 81 mg PO DAILY [facility] Last Admin: 12/16/18 10:11 Dose: 81 mg Atorvastatin Calcium (Lipitor -) 80 mg PO HS [facility] Last Admin: 12/15/18 21:55 Dose: 80 mg Bacitracin (Bacitracin -) 1 applic TP BID [facility] Last Admin: 12/16/18 10:12 Dose: 1 applic Carvedilol (Coreg -) 6.25 mg PO BID [facility] Last Admin: 12/16/18 10:11 Dose: 6.25 mg Cyanocobalamin (Vitamin B12 -) 1,000 mcg PO DAILY [facility] Last Admin: 12/16/18 10:10 Dose: 1,000 mcg Dicloxacillin Sodium (Dynapen -) 500 mg PO TID [facility] Last Admin: 12/16/18 06:27 Dose: 500 mg Docusate Sodium (Colace -) 100 mg PO BID [facility] Last Admin: 12/16/18 10:11 Dose: 100 mg Folic Acid (Folic Acid -) 1 mg PO DAILY [facility] Last Admin: 12/16/18 10:10 Dose: 1 mg Furosemide (Lasix -) 40 mg PO BID@0600,1400 [facility] Last Admin: 12/16/18 06:26 Dose: 40 mg Heparin Sodium (Porcine) (Heparin -) 5,000 unit SQ BID [facility] Last Admin: 12/16/18 10:12 Dose: 5,000 unit Potassium Chloride/Sodium Chloride (Ns+20 Meq Kcl -) 20 meq in 1,000 mls @ 83 mls/hr IV ASDIR [facility] Last Admin: 12/15/18 11:35 Dose: 83 mls/hr Insulin Aspart (Novolog Vial Sliding Scale -) 1 vial SQ ACHS [facility]; Protocol Last Admin: 12/16/18 06:26 Dose: Not Given Insulin Detemir (Levemir Vial) 10 units SQ HS [facility] Last Admin: 12/15/18 21:58 Dose: 10 units Lactic Acid (Lac-Hydrin 12) 1 applic TP BID PRN PRN Reason: xerosis Levothyroxine Sodium 100 mcg/ (Levothyroxine Sodium 125 mcg) 225 mcg PO DAILY@ 0700 [facility] Last Admin: 12/16/18 06:25 Dose: 225 mcg Magnesium Oxide (Mag-Ox -) 400 mg PO DAILY [facility] Last Admin: 12/16/18 10:11 Dose: 400 mg Mpkai-0-Rujj Ethyl Esters (Lovaza -) 1 gm PO DAILY [facility] Last Admin: 12/16/18 10:13 Dose: 1 gm Phenytoin Sodium (Dilantin -) 300 mg PO BID [facility] Last Admin: 12/16/18 10:37 Dose: 300 mg Potassium Chloride (K-Dur -) 10 meq PO DAILY [facility] Last Admin: 12/16/18 10:12 Dose: 10 meq Pyridoxine HCl (Vitamin B6 -) 50 mg PO DAILY [facility] Last Admin: 12/16/18 10:40 Dose: 50 mg Spironolactone (Aldactone -) 25 mg PO DAILY [facility] Last Admin: 12/16/18 10:10 Dose: 25 mg Last Vital Signs. Temp Pulse Resp BP Pulse Ox 98.2 F 97 H 18 103/63 98 12/16/18 06:04 12/16/18 06:04 12/16/18 06:04 12/16/18 06:04 12/15/18 21:00 NECK: Supple, no JVD, -ve HJR, carotids equql 2+, no bruits heard. No thyromegaly. HEART: PMI in the 5th ICS, no heaves or thrills. grade I/ decrescendo systolic murmur along the LSB. No diasysltolic murmur or gallop heard. LUNGS: Clear bilaterally on auscultation. ABDOMEN: Soft, nontender, no organomegaly or palpable masses. EXTREMITIES: No calf tenderness or edema. circumscribed lesion on the right thigh, chronic stasis changes and scars involving both calfs.DP and PT pulses are weak. Femoral pulses 2+. CBC, BMP 12/13/18 05:30 12/15/18 05:30 ECG 12/15/18 Slow atrial flutter with controlled ventricular response IVCD, IWMI of indeterminate age, Poor R wave progression V1 to V4. Nonspecifc ST-T abnormalities. IMPRESSION: 1. CAD/CABG. 2. IDDM. 3. Severe LV systolic dysfunction. 4. Slow atrial flutter with varying ventricular response. 5. Hypothyroidism. 6. Circumscribed lesion on the right thigh, etiology ? basal Carcinoma needs exclusion. 7. Hypertension/HCVD. 8 Dyslipidemia. 9. Prerenal azotemia. 10. Mitral valvular disease/ moderate mitral regurgitation. 11. Moderate tricuspid regurgitation. RECOMMENDATIONS: 1. T3, T4, TSH. 2. Amiodarone level. 3. PFTs. 4. Xray chest PA/LAt. May need CT of chest in view of test puller use of amiodarone. 5. Resting MUGA for confirmation of LVEF and if below 35% will need revaluation of CAD and most likely will be a candidate for prophylactic insertion of ICD. 6. F/u BMP.
[2018-12-16] MEDS ORDERED: LEVOTHYROXINE NA 125 MCG TABLET (FP) ONE (06:23)
[2018-12-16] MEDS ORDERED: LEVOTHYROXINE NA 100 MCG TABLET (FP) ONE (06:24)
[2018-12-16] MEDS: LEVOTHYROXINE 100 MCG, LEVOTHYROXINE 125 MCG PO SCH (06:25)
[2018-12-16] MEDS: FUROSEMIDE 40 MG TABLET (FP) PO SCH ×2 (06:26→14:53)
[2018-12-16] MEDS: INSULIN SLIDING SCALE (NOVOLOG) 1 VIAL SQ SCH ×4 (06:26→22:30)
[2018-12-16] MEDS: DICLOXACILLIN SODIUM 250 MG CAPSULE PO SCH ×3 (06:27→22:31)
[2018-12-16] MEDS: ASCORBIC ACID 500 MG TABLET (FP) PO SCH (10:09)
[2018-12-16] MEDS: AMIODARONE HCL 200 MG TABLET (FP) PO SCH (10:09)
[2018-12-16] MEDS: SPIRONOLACTONE 25 MG TABLET (FP) PO SCH (10:10)
[2018-12-16] MEDS: CYANOCOBALAMIN 1,000 MCG TABLET (FP) PO SCH (10:10)
[2018-12-16] MEDS: FOLIC ACID 1 MG TABLET (FP) PO SCH (10:10)
[2018-12-16] MEDS: CARVEDILOL 6.25 MG TABLET (FP) PO SCH ×2 (10:11→22:29)
[2018-12-16] MEDS: DOCUSATE SODIUM 100 MG CAPSULE (FP) PO SCH ×2 (10:11→22:31)
[2018-12-16] MEDS: ASPIRIN COATED 81 MG TABLET.EC PO SCH (10:11)
[2018-12-16] MEDS: MAGNESIUM OXIDE 400 MG TABLET (FP) PO SCH (10:11)
[2018-12-16] MEDS: BACITRACIN 15 GM TUBE TOPICAL OINTMENT TP SCH ×2 (10:12→22:48)
[2018-12-16] MEDS: POTASSIUM CHLORIDE TABS 10 MEQ TABLET.ER (FP) PO SCH (10:12)
[2018-12-16] MEDS: HEPARIN NA (PORCINE) 5,000 UNITS/ML 1ML VIAL SQ SCH ×2 (10:12→22:29)
[2018-12-16] MEDS: OMEGA-3 ACID ETHYL ESTERS (FATTY-ACIDS) 1 GM CAPSULE (FP) PO SCH (10:13)
[2018-12-16] MEDS ORDERED: PT OWN MED DRAWER 7, Y5N ONE (10:30)
[2018-12-16] MEDS: ALPRAZolam 0.25 MG TABLET PO SCH ×2 (10:31→22:29)
[2018-12-16] MEDS: PHENYTOIN NA EXTENDED 100 MG CAPSULE (FP) PO SCH ×2 (10:37→22:31)
[2018-12-16] MEDS: PYRIDOXINE HCL (B-6) 50 MG TABLET (FP) PO SCH (10:40)
--- NOTE | 2018-12-16 11:30 | PN ---
Progress Note (short form) - Note Progress Note: no sob no distress Vital Signs - 24 hr 12/15/18 12/15/18 12/15/18 14:10 16:15 21:00 Temperature 98.2 F 97.6 F Pulse Rate 71 79 Respiratory 20 20 Rate Blood Pressure 117/67 113/60 O2 Sat by Pulse 98 Oximetry (%) 12/15/18 12/16/18 12/16/18 21:30 01:00 06:04 Temperature 98.4 F 97.3 F L 98.2 F Pulse Rate 80 69 97 H Respiratory 20 20 18 Rate Blood Pressure 110/70 102/66 103/63 O2 Sat by Pulse Oximetry (%) 12/16/18 12/16/18 09:00 10:00 Temperature 98.3 F Pulse Rate 92 H Respiratory 18 18 Rate Blood Pressure 101/66 O2 Sat by Pulse 98 Oximetry (%) Current Medications Generic Name Dose Route Start Last Admin Trade Name Freq PRN Reason Stop Dose Admin Alprazolam 1 mg 12/13/18 07:58 12/16/18 10:31 Xanax - PO Not Given BID [facility] Amiodarone HCl 300 mg 12/13/18 10:00 12/16/18 10:09 Cordarone - PO 300 mg DAILY [facility] Administration Ascorbic Acid 1,000 mg 12/13/18 10:00 12/16/18 10:09 Vitamin C - PO 1,000 mg DAILY [facility] Administration Aspirin 81 mg 12/13/18 10:00 12/16/18 10:11 Ecotrin - PO 81 mg DAILY [facility] Administration Atorvastatin Calcium 80 mg 12/13/18 22:00 12/15/18 21:55 Lipitor - PO 80 mg HS [facility] Administration Bacitracin 1 applic 12/14/18 22:00 12/16/18 10:12 Bacitracin - TP 1 applic BID [facility] Administration Carvedilol 6.25 mg 12/13/18 10:00 12/16/18 10:11 Coreg - PO 6.25 mg BID [facility] Administration Cyanocobalamin 1,000 mcg 12/13/18 10:00 12/16/18 10:10 Vitamin B12 - PO 1,000 mcg DAILY [facility] Administration Dicloxacillin Sodium 500 mg 12/13/18 06:00 12/16/18 06:27 Dynapen - PO 500 mg TID [facility] Administration Docusate Sodium 100 mg 12/13/18 01:15 12/16/18 10:11 Colace - PO 100 mg BID [facility] Administration Folic Acid 1 mg 12/16/18 10:00 12/16/18 10:10 Folic Acid - PO 1 mg DAILY [facility] Administration Furosemide 40 mg 12/14/18 14:00 12/16/18 06:26 Lasix - PO 40 mg BID@0600,1400 [facility] Administration Heparin Sodium (Porcine) 5,000 unit 12/13/18 10:00 12/16/18 10:12 Heparin - SQ 5,000 unit BID [facility] Administration Potassium Chloride/Sodium Chloride 20 meq in 1,000 mls @ 50 mls/hr 12/16/18 12 :24 Ns+20 Meq Kcl - IV ASDIR [facility] Insulin Aspart 1 vial 12/13/18 07:00 12/16/18 06:26 Novolog Vial Sliding Scale - SQ Not Given ACHS [facility] Protocol Insulin Detemir 10 units 12/13/18 01:45 12/15/18 21:58 Levemir Vial SQ 10 units HS [facility] Administration Lactic Acid 1 applic 12/13/18 09:30 Lac-Hydrin 12 TP BID PRN xerosis Levothyroxine Sodium 100 mcg/ 225 mcg 12/13/18 07:00 12/16/18 06:25 Levothyroxine Sodium 125 mcg PO 225 mcg DAILY@0700 [facility] Administration Magnesium Oxide 400 mg 12/16/18 10:00 12/16/18 10:11 Mag-Ox - PO 400 mg DAILY [facility] Administration Akniw-6-Flkl Ethyl Esters 1 gm 12/16/18 10:00 12/16/18 10:13 Lovaza - PO 1 gm DAILY [facility] Administration Phenytoin Sodium 300 mg 12/13/18 10:00 12/16/18 10:37 Dilantin - PO 300 mg BID [facility] Administration Potassium Chloride 10 meq 12/13/18 10:00 12/16/18 10:12 K-Dur - PO 10 meq DAILY [facility] Administration Pyridoxine HCl 50 mg 12/14/18 10:00 12/16/18 10:40 Vitamin B6 - PO 50 mg DAILY [facility] Administration Spironolactone 25 mg 12/13/18 10:00 12/16/18 10:10 Aldactone - PO 25 mg DAILY [facility] Administration Laboratory Results - last 24 hr 12/15/18 12/15/18 12/15/18 05:30 14:00 16:33 POC Glucometer 128 Troponin I 0.06 H 0.06 H 12/15/18 12/16/18 12/16/18 21:53 06:15 11:58 POC Glucometer 162 96 119 Troponin I Lungs clear Abd- soft, NT edema , muscle mass decreased on rt leg - due to obtaining flap on that side scab on rt anterior leg left leg- chronic skin changes PLAN left greater trochanter fracture --mri - noted -- as per ortho-- no surgical interventions as it is not intertrochanteric fracture -- will need physical therapy-->needs STR -- pain control Hypokalemia -- decrease iv fluids -- check BMP today -- continue with Aldactone -- started Lasix -- spoke with Cardiology-- ordered MUGA scan for accurate EF Acute renal failure-resolved --decrease iv fluids Afib- rate controlled -- not on AC due to falls -- cardiology eval noted DVT prophylaxis -- Heparin sc Problem List - Problems (1) Intertrochanteric fracture Code(s): S72.143A - DISPLACED INTERTROCHANTERIC FRACTURE OF UNSP FEMUR, INIT Qualifiers: Encounter type: initial encounter Fracture type: closed Fracture alignment: nondisplaced Laterality: left Qualified Code(s): S72.145A - Nondisplaced intertrochanteric fracture of left femur, initial encounter for closed fracture (2) TRUDY (acute kidney injury) Code(s): N17.9 - ACUTE KIDNEY FAILURE, UNSPECIFIED (3) CAD (coronary artery disease) Code(s): I25.10 - ATHSCL HEART DISEASE OF [place] CORONARY ARTERY W/O ANG PCTRS Qualifiers: Coronary Disease-Associated Artery/Lesion type: bypass graft [place] vs. transplanted heart: [place] heart Associated angina: angina presence unspecified Qualified Code(s): I25.810 - Atherosclerosis of coronary artery bypass graft(s) without angina pectoris (4) HTN (hypertension) Code(s): I10 - ESSENTIAL (PRIMARY) HYPERTENSION Qualifiers: Hypertension type: essential hypertension Qualified Code(s): I10 - Essential (primary) hypertension
[2018-12-16] MEDS ORDERED: SODIUM CHLORIDE 0.9%/KCL 20 MEQ/1,000 ML INFUS.BAG IV SCH (12:24)
[2018-12-16] MEDS ORDERED: ACETAMINOPHEN 325 MG TABLET (FP) ONE (15:21)
--- NOTE | 2018-12-16 15:41 | PN ---
Progress Note, Physician - Current Medication List Current Medications: Active Medications Alprazolam (Xanax -) 1 mg PO BID [facility] Last Admin: 12/16/18 10:31 Dose: Not Given Amiodarone HCl (Cordarone -) 300 mg PO DAILY [facility] Last Admin: 12/16/18 10:09 Dose: 300 mg Ascorbic Acid (Vitamin C -) 1,000 mg PO DAILY [facility] Last Admin: 12/16/18 10:09 Dose: 1,000 mg Aspirin (Ecotrin -) 81 mg PO DAILY [facility] Last Admin: 12/16/18 10:11 Dose: 81 mg Atorvastatin Calcium (Lipitor -) 80 mg PO HS [facility] Last Admin: 12/15/18 21:55 Dose: 80 mg Bacitracin (Bacitracin -) 1 applic TP BID [facility] Last Admin: 12/16/18 10:12 Dose: 1 applic Carvedilol (Coreg -) 6.25 mg PO BID [facility] Last Admin: 12/16/18 10:11 Dose: 6.25 mg Cyanocobalamin (Vitamin B12 -) 1,000 mcg PO DAILY [facility] Last Admin: 12/16/18 10:10 Dose: 1,000 mcg Dicloxacillin Sodium (Dynapen -) 500 mg PO TID [facility] Last Admin: 12/16/18 14:53 Dose: 500 mg Docusate Sodium (Colace -) 100 mg PO BID [facility] Last Admin: 12/16/18 10:11 Dose: 100 mg Folic Acid (Folic Acid -) 1 mg PO DAILY [facility] Last Admin: 12/16/18 10:10 Dose: 1 mg Furosemide (Lasix -) 40 mg PO BID@0600,1400 [facility] Last Admin: 12/16/18 14:53 Dose: 40 mg Heparin Sodium (Porcine) (Heparin -) 5,000 unit SQ BID [facility] Last Admin: 12/16/18 10:12 Dose: 5,000 unit Potassium Chloride/Sodium Chloride (Ns+20 Meq Kcl -) 20 meq in 1,000 mls @ 50 mls/hr IV ASDIR [facility] Last Admin: 12/16/18 12:45 Dose: 50 mls/hr Insulin Aspart (Novolog Vial Sliding Scale -) 1 vial SQ [facility]; Protocol Last Admin: 12/16/18 12:44 Dose: Not Given Insulin Detemir (Levemir Vial) 10 units SQ HS [facility] Last Admin: 12/15/18 21:58 Dose: 10 units Lactic Acid (Lac-Hydrin 12) 1 applic TP BID PRN PRN Reason: xerosis Levothyroxine Sodium 100 mcg/ (Levothyroxine Sodium 125 mcg) 225 mcg PO DAILY@ 0700 [facility] Last Admin: 12/16/18 06:25 Dose: 225 mcg Magnesium Oxide (Mag-Ox -) 400 mg PO DAILY [facility] Last Admin: 12/16/18 10:11 Dose: 400 mg Fyqpm-3-Uhte Ethyl Esters (Lovaza -) 1 gm PO DAILY [facility] Last Admin: 12/16/18 10:13 Dose: 1 gm Phenytoin Sodium (Dilantin -) 300 mg PO BID [facility] Last Admin: 12/16/18 10:37 Dose: 300 mg Potassium Chloride (K-Dur -) 10 meq PO DAILY [facility] Last Admin: 12/16/18 10:12 Dose: 10 meq Pyridoxine HCl (Vitamin B6 -) 50 mg PO DAILY [facility] Last Admin: 12/16/18 10:40 Dose: 50 mg Spironolactone (Aldactone -) 25 mg PO DAILY [facility] Last Admin: 12/16/18 10:10 Dose: 25 mg - Objective Vital Signs: Vital Signs Temperature 98.4 F 12/16/18 14:24 Pulse Rate 81 12/16/18 14:24 Respiratory Rate 18 12/16/18 14:24 Blood Pressure 102/71 12/16/18 14:24 O2 Sat by Pulse Oximetry (%) 98 12/16/18 09:00 Labs: CBC, BMP 12/13/18 05:30 12/15/18 05:30 INR, PTT INR 1.06 (0.83-1.09) 12/13/18 05:30
[2018-12-16 18:33] LABS: ANION GAP 8 MMOL/L (8-16); BLOOD UREA NITROGEN 50 mg/dL (7-18); CALCIUM 8.4 mg/dL (8.5-10.1); CHLORIDE 98 mmol/L (98-107); CO2 29 mmol/L (21-32); CREATININE 1.3 mg/dL (0.55-1.3); GLUCOSE,RANDOM 156 mg/dL (74-106); POTASSIUM 4.2 mmol/L (3.5-5.1); SODIUM 135 mmol/L (136-145)
--- NOTE | 2018-12-16 19:00 | PN ---
Progress Note (short form) - Note Progress Note: ORTHOPEDIC SURGERY PROGRESS NOTE Department of Orthopedic Surgery SUBJECTIVE No new complaints currently; resting comfortably in bed. Denies chest pain, shortness of breath, or calf pain. No nausea or vomiting. Tolerating oral intake. Pain control improving. PHYSICAL EXAMINATION General: Alert, oriented, cooperative and no distress. Right Upper Extremity: Right dorsal forearm dressed with xeroform and kerlex. Muscle mass equal and symmetric to contralateral side. No masses or effusions noted. No tenderness to palpation. Full passive and active ROM, free from pain. Joints stable with no pathologic laxity. M/R/U/MSK/AX motor intact; SILT distally; 2+ radial pulses; Cap refill brisk. Tone and reflexes normal. Right Lower Extremity: Leg swelling. Hypertrophic scab anterior leg. Muscle mass equal and symmetric to contralateral side. Nontender throughout rest of extremity. No cords or calf tenderness. Negative log roll. Able to SLR. No pain with passive hip range of motion. Unable to DF/PF or move toes. SILT distally; 2 + PT pulses; Cap refill brisk. Tone and reflexes normal. Negative Babinski. Left Lower Extremity: Leg swelling. Hypertrophic scab posterior leg. Muscle mass equal and symmetric to contralateral side. No masses or effusions noted. Tender to palpation left greater trochanter; nontender throughout rest of extremity. No cords or calf tenderness. Negative log roll. Able to SLR. No pain with passive hip range of motion. TA/GS motor intact; SILT distally; 2+ DP pulses; Cap refill brisk. Tone and reflexes normal. Negative Babinski. DVT Exam: No evidence of DVT seen on physical exam; No cords or calf tenderness Intake & Output 12/14/18 12/15/18 12/16/18 23:59 23:59 23:59 Intake Total 1937 2651 1566 Output Total 1700 1090 800 Balance 237 1561 766 Intake: IV 1577 1871 1446 NS+20 MEQ KCL - 20 meq In 450 1,000 ml @ 50 mls/hr IV ASDIR [facility] Rx#:[id number] NS+20 MEQ KCL - 20 meq In 1577 1871 996 1,000 ml @ 83 mls/hr IV ASDIR [facility] Rx#:[id number] Oral 240 780 120 Oral Supplement 120 Output: Urine 1700 1090 800 Void 1700 1090 800 Other: Voiding Method Urinal Urinal Urinal Bowel Movement No Weight 184 lb 9.6 oz Weight Measurement Method Patient Lift Scale Active Medications Generic Name Dose Route Start Last Admin Trade Name Y[place]asta PRN Reason Stop Dose Admin Alprazolam 1 mg 12/13/18 07:58 12/16/18 10:31 Xanax - PO Not Given BID [facility] Amiodarone HCl 300 mg 12/13/18 10:00 12/16/18 10:09 Cordarone - PO 300 mg DAILY [facility] Administration Ascorbic Acid 1,000 mg 12/13/18 10:00 12/16/18 10:09 Vitamin C - PO 1,000 mg DAILY [facility] Administration Aspirin 81 mg 12/13/18 10:00 12/16/18 10:11 Ecotrin - PO 81 mg DAILY [facility] Administration Atorvastatin Calcium 80 mg 12/13/18 22:00 12/15/18 21:55 Lipitor - PO 80 mg HS [facility] Administration Bacitracin 1 applic 12/14/18 22:00 12/16/18 10:12 Bacitracin - TP 1 applic BID [facility] Administration Carvedilol 6.25 mg 12/13/18 10:00 12/16/18 10:11 Coreg - PO 6.25 mg BID [facility] Administration Cyanocobalamin 1,000 mcg 12/13/18 10:00 12/16/18 10:10 Vitamin B12 - PO 1,000 mcg DAILY [facility] Administration Dicloxacillin Sodium 500 mg 12/13/18 06:00 12/16/18 14:53 Dynapen - PO 500 mg TID [facility] Administration Docusate Sodium 100 mg 12/13/18 01:15 12/16/18 10:11 Colace - PO 100 mg BID [facility] Administration Folic Acid 1 mg 12/16/18 10:00 12/16/18 10:10 Folic Acid - PO 1 mg DAILY [facility] Administration Furosemide 40 mg 12/14/18 14:00 12/16/18 14:53 Lasix - PO 40 mg BID@0600,1400 [facility] Administration Heparin Sodium (Porcine) 5,000 unit 12/13/18 10:00 12/16/18 10:12 Heparin - SQ 5,000 unit BID [facility] Administration Insulin Aspart 1 vial 12/13/18 07:00 12/16/18 17:09 Novolog Vial Sliding Scale - SQ Not Given ACHS [facility] Protocol Insulin Detemir 10 units 12/13/18 01:45 12/15/18 21:58 Levemir Vial SQ 10 units HS [facility] Administration Lactic Acid 1 applic 12/13/18 09:30 Lac-Hydrin 12 TP BID PRN xerosis Levothyroxine Sodium 200 mcg 12/16/18 18:44 Synthroid - PO DAILY@0700 [facility] Magnesium Oxide 400 mg 12/16/18 10:00 12/16/18 10:11 Mag-Ox - PO 400 mg DAILY [facility] Administration Ohdor-6-Xopc Ethyl Esters 1 gm 12/16/18 10:00 12/16/18 10:13 Lovaza - PO 1 gm DAILY [facility] Administration Phenytoin Sodium 300 mg 12/13/18 10:00 12/16/18 10:37 Dilantin - PO 300 mg BID [facility] Administration Potassium Chloride 10 meq 12/13/18 10:00 12/16/18 10:12 K-Dur - PO 10 meq DAILY [facility] Administration Pyridoxine HCl 50 mg 12/14/18 10:00 12/16/18 10:40 Vitamin B6 - PO 50 mg DAILY [facility] Administration Spironolactone 25 mg 12/13/18 10:00 12/16/18 10:10 Aldactone - PO 25 mg DAILY [facility] Administration Vital Signs (last) Temp Pulse Resp BP Pulse Ox 98.3 F 72 20 102/65 98 12/16/18 16:59 12/16/18 16:59 12/16/18 16:59 12/16/18 16:59 12/16/18 09:00 Laboratory (coagulation) PT with INR 12.50 SEC (9.7-13.0) 12/13/18 05:30 Laboratory 12/13/18 05:30 12/16/18 17:00 IMAGING MRI Left Hip: Left greater trochanter fracture without extension into the lesser trochanter. ASSESSMENT AND PLAN Ray Lackey is a 78 year old male presenting status post mechanical fall with a left sided greater trochanteric fracture without intertrochanteric extension. The patient also has a history of chronic osteomyelitis of the left tibia and is being treated on chronic suppressive antibiotics. We have reviewed the imaging and clinical findings in detail, as well as their potential implications. - Abduction precautions - Physical therapy consult - ID consult appreciated - Pain control: Transition to oral pain medications, minimize narcotic use - DVT prophylaxis - Continue antibiotics for chronic osteomyelitis - Ice/Elevation - Elevate HOB, encourage oral intake - Appreciate medical management (Nutrition optimization, decubitus precautions heel/sacrum) - Partial Weight Bearing LLE; Physical therapy All questions were answered. Thank you for involving our team in the care of this patient. Please call our office with any questions. [phone].
[2018-12-16] MEDS: ATORVASTATIN CA 80 MG TABLET (FP) PO SCH (22:29)
[2018-12-16] MEDS: INSULIN (LEVEMIR) 100 UNITS/ML UNITS SQ SCH (22:30)
[2018-12-17] MEDS: DICLOXACILLIN SODIUM 250 MG CAPSULE PO SCH ×3 (06:34→22:14)
[2018-12-17] MEDS: LEVOTHYROXINE NA 100 MCG TABLET (FP) PO SCH (06:34)
[2018-12-17] MEDS: FUROSEMIDE 40 MG TABLET (FP) PO SCH ×2 (06:34→14:40)
[2018-12-17] MEDS: INSULIN SLIDING SCALE (NOVOLOG) 1 VIAL SQ SCH ×4 (06:35→22:17)
[2018-12-17 07:10] LABS: ANION GAP 7 MMOL/L (8-16); BLOOD UREA NITROGEN 50 mg/dL (7-18); CHLORIDE 97 mmol/L (98-107); CO2 32 mmol/L (21-32); CREATININE 1.2 mg/dL (0.55-1.3); GLUCOSE,RANDOM 111 mg/dL (74-106); POTASSIUM 4.2 mmol/L (3.5-5.1); SODIUM 135 mmol/L (136-145)
[2018-12-17] MEDS: ALPRAZolam 0.25 MG TABLET PO SCH ×2 (09:11→22:07)
[2018-12-17] MEDS ORDERED: PT OWN MED DRAWER 7, Y5N ONE (09:35)
[2018-12-17] MEDS: AMIODARONE HCL 200 MG TABLET (FP) PO SCH (09:37)
[2018-12-17] MEDS: ASPIRIN COATED 81 MG TABLET.EC PO SCH (09:39)
[2018-12-17] MEDS: CYANOCOBALAMIN 1,000 MCG TABLET (FP) PO SCH (09:39)
[2018-12-17] MEDS: FOLIC ACID 1 MG TABLET (FP) PO SCH (09:39)
[2018-12-17] MEDS: MAGNESIUM OXIDE 400 MG TABLET (FP) PO SCH (09:39)
[2018-12-17] MEDS: DOCUSATE SODIUM 100 MG CAPSULE (FP) PO SCH ×2 (09:39→22:17)
[2018-12-17] MEDS: ASCORBIC ACID 500 MG TABLET (FP) PO SCH (09:39)
[2018-12-17] MEDS: CARVEDILOL 6.25 MG TABLET (FP) PO SCH ×2 (09:40→22:07)
[2018-12-17] MEDS: OMEGA-3 ACID ETHYL ESTERS (FATTY-ACIDS) 1 GM CAPSULE (FP) PO SCH (09:40)
[2018-12-17] MEDS: PHENYTOIN NA EXTENDED 100 MG CAPSULE (FP) PO SCH ×2 (09:40→22:07)
[2018-12-17] MEDS: HEPARIN NA (PORCINE) 5,000 UNITS/ML 1ML VIAL SQ SCH ×2 (09:40→22:14)
[2018-12-17] MEDS: SPIRONOLACTONE 25 MG TABLET (FP) PO SCH (09:40)
[2018-12-17] MEDS: PYRIDOXINE HCL (B-6) 50 MG TABLET (FP) PO SCH (09:41)
[2018-12-17] MEDS: POTASSIUM CHLORIDE TABS 10 MEQ TABLET.ER (FP) PO SCH (09:41)
--- NOTE | 2018-12-17 10:04 | PN ---
Progress Note (short form) - Note Progress Note: 78 year old male admitted with history of a fall and fracture of the left greater trochanter. Known case of CAD, s/p CABG in the 's. Severe LV systolic dysfunction, severely reduced LVEF 25-30% on echocardiogram, MVP, moderate MR and TR, hypertension, paroxymal atrial fibrillation, hyperlipidemia, IDDM, s/p LV failure prior to CABG. History of hypothyroidism and chronic lymphedema of the lower extremities. No chest pain or discomfort, no shortness of breath, no dizziness or syncope. No palpitations. Resting comfortably. No history of cough or expectoration. Active Medications Alprazolam (Xanax -) 1 mg PO BID [facility] Last Admin: 12/16/18 22:29 Dose: 1 mg Amiodarone HCl (Cordarone -) 300 mg PO DAILY [facility] Last Admin: 12/17/18 09:37 Dose: 300 mg Ascorbic Acid (Vitamin C -) 1,000 mg PO DAILY [facility] Last Admin: 12/17/18 09:39 Dose: 1,000 mg Aspirin (Ecotrin -) 81 mg PO DAILY [facility] Last Admin: 12/17/18 09:39 Dose: 81 mg Atorvastatin Calcium (Lipitor -) 80 mg PO HS [facility] Last Admin: 12/16/18 22:29 Dose: 80 mg Bacitracin (Bacitracin -) 1 applic TP BID [facility] Last Admin: 12/16/18 22:48 Dose: 1 applic Carvedilol (Coreg -) 6.25 mg PO BID [facility] Last Admin: 12/17/18 09:40 Dose: 6.25 mg Cyanocobalamin (Vitamin B12 -) 1,000 mcg PO DAILY [facility] Last Admin: 12/17/18 09:39 Dose: 1,000 mcg Dicloxacillin Sodium (Dynapen -) 500 mg PO TID [facility] Last Admin: 12/17/18 06:34 Dose: 500 mg Docusate Sodium (Colace -) 100 mg PO BID [facility] Last Admin: 12/17/18 09:39 Dose: 100 mg Folic Acid (Folic Acid -) 1 mg PO DAILY [facility] Last Admin: 12/17/18 09:39 Dose: 1 mg Furosemide (Lasix -) 40 mg PO BID@0600,1400 [facility] Last Admin: 12/17/18 06:34 Dose: 40 mg Heparin Sodium (Porcine) (Heparin -) 5,000 unit SQ BID [facility] Last Admin: 12/17/18 09:40 Dose: 5,000 unit Insulin Aspart (Novolog Vial Sliding Scale -) 1 vial SQ ACHS [facility]; Protocol Last Admin: 12/17/18 06:35 Dose: Not Given Insulin Detemir (Levemir Vial) 10 units SQ HS [facility] Last Admin: 12/16/18 22:30 Dose: Not Given Lactic Acid (Lac-Hydrin 12) 1 applic TP BID PRN PRN Reason: xerosis Levothyroxine Sodium (Synthroid -) 200 mcg PO DAILY@0700 [facility] Last Admin: 12/17/18 06:34 Dose: 200 mcg Magnesium Oxide (Mag-Ox -) 400 mg PO DAILY [facility] Last Admin: 12/17/18 09:39 Dose: 400 mg [id number] Ethyl Esters (Lovaza -) 1 gm PO DAILY [facility] Last Admin: 12/17/18 09:40 Dose: 1 gm Phenytoin Sodium (Dilantin -) 300 mg PO BID [facility] Last Admin: 12/17/18 09:40 Dose: 300 mg Potassium Chloride (K-Dur -) 10 meq PO DAILY [facility] Last Admin: 12/17/18 09:41 Dose: 10 meq Pyridoxine HCl (Vitamin B6 -) 50 mg PO DAILY [facility] Last Admin: 12/17/18 09:41 Dose: 50 mg Spironolactone (Aldactone -) 25 mg PO DAILY [facility] Last Admin: 12/17/18 09:40 Dose: 25 mg Last Vital Signs Temp Pulse Resp BP Pulse Ox 97.6 F 74 Irregularly irregular 20 100/56 L 97 12/17/18 09:00 12/17/18 09:00 12/17/18 09:00 12/17/18 09:00 12/17/18 09:00 NECK: Supple, no JVD, negative HJR, carotids equal and 2+, no bruits heard. No thyromegaly. HEART: PMI in the 5th intercostal space, no heaves or thrills. Grade I/ decrescendo systolic murmur along the left sternal border. No diasystolic murmur or gallop heard. LUNGS: Clear on auscultation bilaterally. ABDOMEN: Soft, nontender, no organomegaly or palpable masses. EXTREMITIES: No calf tenderness or edema. Circumscribed lesion on the right thigh, chronic stasis changes and scars involving both calfs. DP and PT pulses are weak. Femoral pulses 2+. Laboratory Results 12/16/18 12/17/18 12/17/18 22:26 05:30 06:00 Sodium 135 L Potassium 4.2 Chloride 97 L Carbon Dioxide 32 Anion Gap 7 L BUN 50 H Creatinine 1.2 Creat Clearance w eGFR 58.56 POC Glucometer 149 118 Random Glucose 111 H Calcium 8.0 L TSH Free T4 IMPRESSION: 1. CAD/CABG. 2. IDDM. 3. Severe LV systolic dysfunction. 4. Slow atrial flutter with varying ventricular response. 5. Hypothyroidism. 6. Circumscribed lesion on the right thigh, etiology ? basal Carcinoma needs exclusion. 7. Hypertension/HCVD. 8 Dyslipidemia. 9. Prerenal azotemia. 10. Mitral valvular disease/ moderate mitral regurgitation. 11. Moderate tricuspid regurgitation. RECOMMENDATIONS: 1. T3, T4, TSH. 2. Amiodarone level. 3. PFTs. 4. Xray chest PA/lat. May need CT of chest in view of wrapper and preserver use of amiodarone. 5. Resting MUGA for confirmation of LVEF and if below 35% will need revaluation of CAD and most likely will be a candidate for prophylactic insertion of ICD. 6. F/u BMP. 7. May need to reduce dose of Lasix in view of prerenal azotemia. Anjum Bender M.D., F.A.C.C.
[2018-12-17] MEDS: BACITRACIN 15 GM TUBE TOPICAL OINTMENT TP SCH ×2 (12:10→22:28)
--- NOTE | 2018-12-17 14:53 | PN ---
Progress Note, Physician - Current Medication List Current Medications: Active Medications Alprazolam (Xanax -) 1 mg PO BID [facility] Last Admin: 12/17/18 09:11 Dose: Not Given Amiodarone HCl (Cordarone -) 300 mg PO DAILY [facility] Last Admin: 12/17/18 09:37 Dose: 300 mg Ascorbic Acid (Vitamin C -) 1,000 mg PO DAILY [facility] Last Admin: 12/17/18 09:39 Dose: 1,000 mg Aspirin (Ecotrin -) 81 mg PO DAILY [facility] Last Admin: 12/17/18 09:39 Dose: 81 mg Atorvastatin Calcium (Lipitor -) 80 mg PO HS [facility] Last Admin: 12/16/18 22:29 Dose: 80 mg Bacitracin (Bacitracin -) 1 applic TP BID [facility] Last Admin: 12/17/18 12:10 Dose: 1 applic Carvedilol (Coreg -) 6.25 mg PO BID [facility] Last Admin: 12/17/18 09:40 Dose: 6.25 mg Cyanocobalamin (Vitamin B12 -) 1,000 mcg PO DAILY [facility] Last Admin: 12/17/18 09:39 Dose: 1,000 mcg Dicloxacillin Sodium (Dynapen -) 500 mg PO TID [facility] Last Admin: 12/17/18 14:41 Dose: 500 mg Docusate Sodium (Colace -) 100 mg PO BID [facility] Last Admin: 12/17/18 09:39 Dose: 100 mg Folic Acid (Folic Acid -) 1 mg PO DAILY [facility] Last Admin: 12/17/18 09:39 Dose: 1 mg Furosemide (Lasix -) 40 mg PO BID@0600,1400 [facility] Last Admin: 12/17/18 14:40 Dose: 40 mg Heparin Sodium (Porcine) (Heparin -) 5,000 unit SQ BID [facility] Last Admin: 12/17/18 09:40 Dose: 5,000 unit Insulin Aspart (Novolog Vial Sliding Scale -) 1 vial SQ [facility]; Protocol Last Admin: 12/17/18 12:10 Dose: Not Given Insulin Detemir (Levemir Vial) 10 units SQ [facility] Last Admin: 12/16/18 22:30 Dose: Not Given Lactic Acid (Lac-Hydrin 12) 1 applic TP BID PRN PRN Reason: xerosis Levothyroxine Sodium (Synthroid -) 200 mcg PO DAILY@0700 [facility] Last Admin: 02/13/19 06:34 Dose: 200 mcg Magnesium Oxide (Mag-Ox -) 400 mg PO DAILY [facility] Last Admin: 12/17/18 09:39 Dose: 400 mg [id number] Ethyl Esters (Lovaza -) 1 gm PO DAILY [facility] Last Admin: 12/17/18 09:40 Dose: 1 gm Phenytoin Sodium (Dilantin -) 300 mg PO BID [facility] Last Admin: 12/17/18 09:40 Dose: 300 mg Potassium Chloride (K-Dur -) 10 meq PO DAILY [facility] Last Admin: 12/17/18 09:41 Dose: 10 meq Pyridoxine HCl (Vitamin B6 -) 50 mg PO DAILY [facility] Last Admin: 12/17/18 09:41 Dose: 50 mg Spironolactone (Aldactone -) 25 mg PO DAILY [facility] Last Admin: 12/17/18 09:40 Dose: 25 mg - Objective Vital Signs: Vital Signs Temperature 98.2 F 12/17/18 14:45 Pulse Rate 71 12/17/18 14:45 Respiratory Rate 20 12/17/18 14:45 Blood Pressure 92/53 L 12/17/18 14:45 O2 Sat by Pulse Oximetry (%) 97 12/17/18 09:00 Labs: CBC, BMP 12/13/18 05:30 12/17/18 05:30 INR, PTT INR 1.06 (0.83-1.09) 12/13/18 05:30
--- NOTE | 2018-12-17 15:44 | DS ---
Physical Examination Vital Signs: Vital Signs Temperature 98.2 F 12/17/18 14:45 Pulse Rate 71 12/17/18 14:45 Respiratory Rate 20 12/17/18 14:45 Blood Pressure 92/53 L 12/17/18 14:45 O2 Sat by Pulse Oximetry (%) 97 12/17/18 09:00 Constitutional: Yes: No Distress, Calm Cardiovascular: Yes: Regular Rate and Rhythm Respiratory: Yes: CTA Bilaterally Gastrointestinal: Yes: Normal Bowel Sounds, Soft. No: Tenderness Edema: No Neurological: Yes: Alert, Oriented Psychiatric: Yes: Alert, Oriented Labs: CBC, BMP 12/13/18 05:30 12/17/18 05:30 Discharge Summary Reason For Visit: INTERTROCHANTERIC FRACTURE OF LEFT FEMURE Current Active Problems Intertrochanteric fracture (Acute) Hospital Course: Pt admitted for mechanical fall No prodromal symptoms Found to have Left greater trochanter fracture on xray and CT pelvis. Confirmed with pelvic MRI Pt was found to be severely hypokalemic, potassium replaced in the hospital appropriately. Evaluated by Cardiology Initially Lasix was discontinued but restarted later. MUGA scan showed EF- 31% CXR-- no infiltrates Spoke with [facility]er- will need to get rehab and afterwards pt will need to follow up with [facility] [facility]er for ICD placement As per Ortho-- no surgical interventions recommended as it is not intertrochanteric fracture Pt was also evaluated by ID-- continue with antibiotics for chronic osteomyelitis Stable for dc to [place] Upon discharge from [place], will need to followup with Cardiology and PMD, should also get CT chest done as pt was on chronic amiodarone use. Time spent - 30 min PAST MEDICAL HISTORY: CAD s/p remote CABG, DM, HTN, HLD, Chronic Lymphedema, Chronic osteomyelitis, meningioma (recurring) PAST SURGICAL HISTORY: Meningioma resection, metal plates in head Condition: Improved - Instructions Referrals: Mika Flaherty MD [Primary Care Provider] - Disposition: LONG-TERM FACILITY - Home Medications Comprehensive Discharge Medication List: Ambulatory Orders Amiodarone HCl [Cordarone -] 300 mg PO DAILY 08/25/13 Ascorbic Acid [Vitamin C] 1,000 mg PO DAILY 08/25/13 Aspirin Coated [Ecotrin -] 81 mg PO DAILY 08/25/13 Atorvastatin Ca [Lipitor] 80 mg PO HS 08/25/13 Carvedilol [Coreg -] 6.25 mg PO BID 08/25/13 Dicloxacillin Sodium 500 mg PO TID 08/25/13 Flaxseed Oil 1,000 mg PO DAILY 08/25/13 Folic Acid 0.8 mg PO DAILY 08/25/13 Insulin Glargine,Hum.rec.anlog [Lantus (10mL VIAL) -] 10 units SQ HS 08/25/13 Magnesium 30 mg PO DAILY 08/25/13 Phenytoin Sodium Extended [Phenytek] 300 mg PO BID 08/25/13 Potassium Chloride [K-Tab] 10 meq PO DAILY 08/25/13 Pyridoxine HCl (B-6) [Vitamin B6 -] 50 mg PO DAILY 08/25/13 Zinc 50 mg PO DAILY 08/25/13 Insulin Lispro [Humalog] 0 unit SQ TID 08/26/13 Alprazolam [Xanax] 1 mg PO BID 07/06/17 Cyanocobalamin [Vitamin B12 -] 1,000 mcg PO DAILY 07/06/17 Docusate Sodium [Colace -] 100 mg PO BID 07/06/17 [place]-3 Fatty Acids [[place]-3] 1,000 mg PO DAILY 07/06/17 Ubidecarenone/Vit E Acet [Co Q-10 100 mg Softgel] 1 each PO DAILY 07/06/17 Cefuroxime Axetil [Ceftin -] 500 mg PO Q12H #8 tablet 04/28/18 Levothyroxine [Synthroid -] 225 mcg PO DAILY@0700 #30 tablet 04/28/18 Spironolactone [Aldactone -] 25 mg PO DAILY #30 tablet 04/28/18 Furosemide [Lasix -] 40 mg PO BID 12/13/18
[2018-12-17] MEDS: ATORVASTATIN CA 80 MG TABLET (FP) PO SCH (22:07)
[2018-12-17] MEDS: INSULIN (LEVEMIR) 100 UNITS/ML UNITS SQ SCH (22:14)
[2018-12-18 06:33] VITALS: TEMP 98.2
[2018-12-18] MEDS: LEVOTHYROXINE NA 100 MCG TABLET (FP) PO SCH (06:47)
[2018-12-18] MEDS: DICLOXACILLIN SODIUM 250 MG CAPSULE PO SCH (06:49)
[2018-12-18] MEDS: INSULIN SLIDING SCALE (NOVOLOG) 1 VIAL SQ SCH (06:49)
[2018-12-18] MEDS: FUROSEMIDE 40 MG TABLET (FP) PO SCH (06:49)
[2018-12-18] MEDS: ALPRAZolam 0.25 MG TABLET PO SCH (09:18)
[2018-12-18] MEDS: OMEGA-3 ACID ETHYL ESTERS (FATTY-ACIDS) 1 GM CAPSULE (FP) PO SCH (09:18)
[2018-12-18] MEDS: ASPIRIN COATED 81 MG TABLET.EC PO SCH (09:19)
[2018-12-18] MEDS: AMIODARONE HCL 200 MG TABLET (FP) PO SCH (09:19)
[2018-12-18] MEDS: CARVEDILOL 6.25 MG TABLET (FP) PO SCH (09:19)
[2018-12-18] MEDS: ASCORBIC ACID 500 MG TABLET (FP) PO SCH (09:19)
[2018-12-18] MEDS: MAGNESIUM OXIDE 400 MG TABLET (FP) PO SCH (09:19)
[2018-12-18] MEDS: FOLIC ACID 1 MG TABLET (FP) PO SCH (09:19)
[2018-12-18] MEDS: PHENYTOIN NA EXTENDED 100 MG CAPSULE (FP) PO SCH (09:20)
[2018-12-18] MEDS: DOCUSATE SODIUM 100 MG CAPSULE (FP) PO SCH (09:20)
[2018-12-18] MEDS: SPIRONOLACTONE 25 MG TABLET (FP) PO SCH (09:20)
[2018-12-18] MEDS: BACITRACIN 15 GM TUBE TOPICAL OINTMENT TP SCH (09:20)
[2018-12-18] MEDS: HEPARIN NA (PORCINE) 5,000 UNITS/ML 1ML VIAL SQ SCH (09:21)
[2018-12-18] MEDS: CYANOCOBALAMIN 1,000 MCG TABLET (FP) PO SCH (09:21)
[2018-12-18] MEDS: POTASSIUM CHLORIDE TABS 10 MEQ TABLET.ER (FP) PO SCH (09:21)
[2018-12-18] MEDS: PYRIDOXINE HCL (B-6) 50 MG TABLET (FP) PO SCH (09:22)
[2018-12-18 09:43] VITALS: BP 108/56; PULSE 76
--- NOTE | 2018-12-18 11:12 | PN ---
Progress Note (short form) - Note Progress Note: no sob no distress Vital Signs - 24 hr 12/17/18 12/17/18 12/17/18 14:45 17:56 21:00 Temperature 98.2 F 98.3 F 98.0 F Pulse Rate 71 85 74 Respiratory 20 18 20 Rate Blood Pressure 92/53 L 108/62 102/73 O2 Sat by Pulse 100 Oximetry (%) 12/18/18 12/18/18 12/18/18 01:00 05:00 09:00 Temperature 97.4 F L 98.2 F Pulse Rate 58 L 73 76 Respiratory 20 20 18 Rate Blood Pressure 109/57 L 111/61 108/56 L O2 Sat by Pulse 100 Oximetry (%) Lungs clear Abd- soft, NT edema , muscle mass decreased on rt leg - due to obtaining flap on that side scab on rt anterior leg left leg- chronic skin changes PLAN left greater trochanter fracture --mri - noted -- as per ortho-- no surgical interventions as it is not intertrochanteric fracture -- will need physical therapy-->needs STR -- being dc today -- pain control Hypokalemia -- off iv fluids -- continue with Aldactone and lasix Acute renal failure-resolved --off iv fluids rate controlled -- not on AC due to falls -- cardiology follow up upon dc from [place] -- informed pt about MUGA results DVT prophylaxis -- Heparin sc for dc today to [facility] Problem List - Problems (1) Intertrochanteric fracture Code(s): S72.143A - DISPLACED INTERTROCHANTERIC FRACTURE OF UNSP FEMUR, INIT Qualifiers: Encounter type: initial encounter Fracture type: closed Fracture alignment: nondisplaced Laterality: left Qualified Code(s): S72.145A - Nondisplaced intertrochanteric fracture of left femur, initial encounter for closed fracture (2) TRUDY (acute kidney injury) Code(s): N17.9 - ACUTE KIDNEY FAILURE, UNSPECIFIED (3) CAD (coronary artery disease) Code(s): I25.10 - ATHSCL HEART DISEASE OF [place] CORONARY ARTERY W/O ANG PCTRS Qualifiers: Coronary Disease-Associated Artery/Lesion type: bypass graft [place] vs. transplanted heart: [place] heart Associated angina: angina presence unspecified Qualified Code(s): I25.810 - Atherosclerosis of coronary artery bypass graft(s) without angina pectoris (4) HTN (hypertension) Code(s): I10 - ESSENTIAL (PRIMARY) HYPERTENSION Qualifiers: Hypertension type: essential hypertension Qualified Code(s): I10 - Essential (primary) hypertension
== END 2018-12-18 11:06 | DRG 536 ==
LOC: JER 16:17 → JERBED 19:12 → J4W 12-13 00:25
PROVIDERS: ADMIT Internal Medicine; ATTEND Internal Medicine
DX: S72.112A Displaced fracture of greater trochanter of left femur, initial encounter for closed fracture (principal); N17.9 Acute kidney failure, unspecified; E87.1 Hypo-osmolality and hyponatremia; M86.662 Other chronic osteomyelitis, left tibia and fibula; I50.22 Chronic systolic (congestive) heart failure; E11.69 Type 2 diabetes mellitus with other specified complication; I11.0 Hypertensive heart disease with heart failure; E03.9 Hypothyroidism, unspecified; I25.10 Atherosclerotic heart disease of native coronary artery without angina pectoris; B35.1 Tinea unguium; Z95.1 Presence of aortocoronary bypass graft; E87.6 Hypokalemia; E78.5 Hyperlipidemia, unspecified; Z91.81 History of falling; Z79.4 Long term (current) use of insulin; W19.XXXA Unspecified fall, initial encounter; Y93.89 Activity, other specified; Y92.9 Unspecified place or not applicable; Y99.8 Other external cause status; I48.91 Unspecified atrial fibrillation; I36.1 Nonrheumatic tricuspid (valve) insufficiency; I48.0 Paroxysmal atrial fibrillation; L85.3 Xerosis cutis; R07.89 Other chest pain
CPT/HCPCS: 36415; 71045-TC-FY; 71046-TC-FY; 72192-TC; 72195-TC; 73523-TC-FY; 73552-TC-LT-FY; 73590-TC-LT-FY; 78472-TC; 80048; 80053; 82962; 83735; 83930; 83935; 84300; 84439; 84443; 84481; 84484; 85025; 85610; 85730; 86850; 86900; 86901; 93005; 93010; 93306-TC; 97116-GP; 97162-GP; 99283-25; A9538; J1644

== ENCOUNTER 2019-01-19 16:23 | Inpatient (IN) | payer OTHER, BC ==
[2019-01-19 17:54] LABS: BASO % 1.1 % (0-2.0); LYMPH % 7.5 % (8-40); MCH 32.8 pg (25.7-33.7); MCHC 34.8 g/dl (32.0-35.9); MEAN CELL VOLUME 94.2 fl (80-96); MEAN PLT VOLUME 8.5 fl (7.5-11.1); MONO % 17.5 % (3.8-10.2); NEUT % 72.9 % (42.8-82.8); PLATELET COUNT 275 K/MM3 (134-434); RBC 2.02 M/mm3 (4.00-5.60); RDW 19.4 % (11.9-15.9)
[2019-01-19 18:11] LABS: HEMOGLOBIN 6.6 GM/dL (11.7-16.9); WHITE BLOOD COUNT 10.2 K/mm3 (4.0-10.0)
[2019-01-19 18:14] LABS: INR 1.22 (0.83-1.09); PROTHROMBIN TIME (PATIENT) 14.4 SEC (9.7-13.0)
[2019-01-19 18:17] LABS: ACTIVATED PTT 30.9 SECONDS (25.2-36.5)
[2019-01-19 18:25] LABS: ALBUMIN 2.2 g/dl (3.4-5.0); ALK PHOS 153 U/L (45-117); ANION GAP 7 MMOL/L (8-16); BILIRUBIN,TOTAL 1.3 mg/dL (0.2-1); BLOOD UREA NITROGEN 17 mg/dL (7-18); CALCIUM 7.5 mg/dL (8.5-10.1); CHLORIDE 94 mmol/L (98-107); CO2 28 mmol/L (21-32); CREATININE 0.8 mg/dL (0.55-1.3); GLUCOSE,RANDOM 140 mg/dL (74-106); POTASSIUM 4.7 mmol/L (3.5-5.1); SGOT/AST 49 U/L (15-37); SGPT/ALT 43 U/L (13-61); SODIUM 129 mmol/L (136-145); TOT PROT 5.4 g/dl (6.4-8.2)
--- NOTE | 2019-01-19 18:55 | PDOC ---
History of Present Illness - General Chief Complaint: Revisit, Lab Variance Stated Complaint: ABNORMAL ABS Time Seen by Provider: 01/19/19 16:57 - History of Present Illness Initial Comments: 01/19/19 19:27 The patient is a 78 year old male, with a significant past medical history of congestive heart failure, BLE lymphedema, IDDM, coronary artery disease (s/p 4- vessel CABG), parietal meningioma (s/p resection in 2001), anxiety, atrial fibrillation, PE (on Lovenox), hypertension, hyperlipidemia, hypothyroidism, frequent falls, and nonambulatory at baseline, who presents to the emergency department from [facility] with, anemia. As per bloodwork done today patient has a hemoglobin of 5.9 and on previous labwork done 12/2018 his hemoglobin was 10. Patient endorses blt UE and LE edema. Patient is currently nonambulatory secondary to a recent hip fracture. He denies any recent black, tarry stools. He denies any recent fevers, chills, headache or dizziness. He denies any recent nausea, vomit, diarrhea or constipation. He denies any recent chest pain or shortness of breath. He denies any recent dysuria, frequency, urgency or hematuria. Allergies: NKDA Past surgical history: None reported. Social History: tobacco use (smoker). Past History - Past Medical History Allergies/Adverse Reactions: Allergies Allergy/AdvReac Type Severity Reaction Status Date / Time No Known Drug Allergies Allergy Verified 01/19/19 16:53 strawberry Allergy Hives Verified 01/19/19 20:53 Home Medications: Ambulatory Orders Alprazolam [Xanax] 1 mg PO HS 01/19/19 Amiodarone HCl 100 mg PO DAILY 01/19/19 Atorvastatin Ca [Lipitor] 80 mg PO HS 01/19/19 Carvedilol [Coreg -] 3.125 mg PO DAILY 01/19/19 Dicloxacillin Sodium [Dynapen -] 500 mg PO Q8H 01/19/19 Docusate Sodium [Colace -] 100 mg PO TID 01/19/19 Escitalopram Oxalate [Lexapro -] 10 mg PO DAILY 01/19/19 Insulin Glargine,Hum.rec.anlog [Lantus Solostar] 10 unit SQ HS 01/19/19 Insulin Lispro [Humalog] 100 unit SQ BID 01/19/19 Levothyroxine [Synthroid -] 175 mcg PO DAILY 01/19/19 Multivitamin [Multiple Vitamins] 1 each PO DAILY 01/19/19 Pantoprazole Sodium [Protonix -] 40 mg PO DAILY 01/19/19 Sennosides [Senna] 2 tab PO HS 01/19/19 Spironolactone [Aldactone -] 25 mg PO DAILY 01/19/19 Amino Acids/Protein Hydrolys [Prosource No Carb Liquid Pkt] 30 ml PO BID@0800, 1730 #14 packet 01/28/19 Apixaban [Eliquis] 5 mg PO BID #60 tablet 01/28/19 Cefuroxime Axetil [Ceftin -] 500 mg PO Q12H #6 tablet 01/28/19 Furosemide [Lasix -] 40 mg PO DAILY #0 tab 01/28/19 Lacosamide [Vimpat] 100 mg PO DAILY #0 tab 01/28/19 Levothyroxine [Synthroid -] 175 mcg PO DAILY@0700 #30 tablet 01/28/19 Tamsulosin HCl [Flomax -] 0.8 mg PO HS #30 cap.er.24h 01/28/19 levETIRAcetam [Keppra -] 750 mg PO BID #60 tablet 01/28/19 traMADol HCL [Ultram -] 50 mg PO Q8H PRN #30 tablet MDD 3 01/28/19 Cancer: Yes (brain tumor) Cardiac Disorders: Yes (bypass sx) COPD: No CHF: Yes Diabetes: Yes HTN: Yes Hypercholesterolemia: Yes Thyroid Disease: Yes (HYPO) - Surgical History Appendectomy: Yes Cardiac Surgery: Yes (CABG) Neurologic Surgery: Yes (MENINGIOMA REMOVED) - Suicide/Smoking/Psychosocial Hx Smoking History: Former smoker Have you smoked in the past 12 months: No If you are a former smoker, when did you quit?: 40YRS AGO Information on smoking cessation initiated: No Hx Alcohol Use: No Drug/Substance Use Hx: No Substance Use Type: Alcohol Hx Substance Use Treatment: No Review of Systems - Review of Systems Comments:: 01/19/19 19:28 GENERAL/CONSTITUTIONAL: No fever or chills. No weakness. HEAD, EYES, EARS, NOSE AND THROAT: No change in vision. No ear pain or discharge. No sore throat. GASTROINTESTINAL: No nausea, vomiting, diarrhea or constipation. GENITOURINARY: No dysuria, frequency, or change in urination. CARDIOVASCULAR: No chest pain or shortness of breath. RESPIRATORY: No cough, wheezing, or hemoptysis. MUSCULOSKELETAL: No joint or muscle swelling or pain. No neck or back pain. SKIN: No rash NEUROLOGIC: No headache, vertigo, loss of consciousness, or change in strength/ sensation. ENDOCRINE: No increased thirst. No abnormal weight change. HEMATOLOGIC/LYMPHATIC: +Anemia. +blt upper and lower extremity edema. No easy bleeding, or history of blood clots. ALLERGIC/IMMUNOLOGIC: No hives or skin allergy. *Physical Exam - Vital Signs Last Vital Signs Temp Pulse Resp BP Pulse Ox 99.5 F 88 18 100/64 96 01/19/19 16:53 01/19/19 16:53 01/19/19 16:53 01/19/19 16:53 01/19/19 16:53 - Physical Exam Comments: 01/19/19 19:27 Gen: pale, in NAD ENT: PERRL, EOMI NECK: supple CV: irregularlyl irregular, rate 91, no MRG PULM: CTAB, no WRC GI: no focal ttp, +ecchymosis in various stages 2/2 lovenx Ext: WWP distally, no deformities, +symmetric 2+ LE edema, no calf ttp BACK: no midline cervical, thoracic, lumbar ttp Neuro: alert, equal stength and sensation b/l Skin: ecchymosis to abd Moderate Sedation - Procedure Monitoring Vital Signs: Procedure Monitoring Vital Signs Temperature 99.5 F 01/19/19 16:53 Pulse Rate 88 01/19/19 16:53 Respiratory Rate 18 01/19/19 16:53 Blood Pressure 100/64 01/19/19 16:53 O2 Sat by Pulse Oximetry (%) 96 01/19/19 16:53 ED Treatment Course - LABORATORY CBC & Chemistry Diagram: 01/27/19 06:30 01/27/19 06:30 - ADDITIONAL ORDERS Additional order review: Laboratory Results 01/19/19 01/19/19 01/19/19 17:41 17:41 17:41 PT with INR 14.40 H INR 1.22 H PTT (Actin FS) 30.9 Sodium 129 L Potassium 4.7 Chloride 94 L Carbon Dioxide 28 Anion Gap 7 L BUN 17 Creatinine 0.8 Creat Clearance w eGFR 93.49 Random Glucose 140 H Calcium 7.5 L Total Bilirubin 1.3 H AST 49 H ALT 43 Alkaline Phosphatase 153 H Creatine Kinase 515 H Creatine Kinase Index 0.3 CK-MB (CK-2) 1.7 Troponin I 0.04 Total Protein 5.4 L Albumin 2.2 L Blood Type O POSITIVE Antibody Screen Negative Crossmatch See Detail 01/19/19 17:41 RBC 2.02 L MCV 94.2 MCHC 34.8 RDW 19.4 H MPV 8.5 Neutrophils % 72.9 Lymphocytes % 7.5 L D Monocytes % 17.5 H Eosinophils % 1.0 Basophils % 1.1 - RADIOLOGY Radiology Studies Ordered: Category Date Time Status DUPLEX VASCUL US-1 ARM [US] Stat Ultrasound 01/19/19 18:14 Ordered Medical Decision Making - Medical Decision Making 01/19/19 18:49 78yo M with MMP presents to the ED for admission for transfusion in setting of hgb 5. [place] + Likely 2/2 lovenox W/u including rpt H&H pending, anticpate admission *DC/Admit/Observation/Transfer Diagnosis at time of Disposition: Anemia - Discharge Dispostion Disposition: NURSING HOME FACILITY Condition at time of disposition: Improved - Referrals - Patient Instructions - Post Discharge Activity
[2019-01-19] MEDS ORDERED: ACETAMINOPHEN 1000 MG/100 ML VIAL (NON FORMULARY) IVPB ONE (20:18)
[2019-01-19] MEDS ORDERED: ACETAMINOPHEN INJECTION 100 ML IVPB ONE (20:19)
[2019-01-19] MEDS ORDERED: morphine CARPU-JECT 4 MG/1 ML DISP.SYRIN IVPUSH ONE (21:30)
[2019-01-19] MEDS ORDERED: MORPHINE SULFATE 2 MG/ML VIAL ONE (21:36)
[2019-01-19] MEDS ORDERED: SODIUM CHLORIDE 1,000 ML IV SCH (22:30)
--- NOTE | 2019-01-19 22:30 | HP ---
Admitting History and Physical - Primary Care Physician PCP: Mika Flaherty - Admission Chief Complaint: Sent from Rehab for low H/H History of Present Illness: 78 year old M with hx CAD s/p 4V CABG, pafib, htn, hld, systolic CHF, hypothyroidism, DMII, Chronic osteomyelitis, and parietal meningioma (s/p resection 2001) [facility] for evaluation of acute anemia (hgb 5.9). Mr. Lackey's protracted health problems started on dec 2018 when he sustained a mechanical fall, landing on left hip resulting in left greater trochanter fracture on xray and CT pelvis. Pt was evaluated by ortho and no surgical intervention was recommended. Pt was discharged to [facility] for acute rehabilitation. Pt is bed bound since his fall with resultant fracture. He reports that early in his rehab course at [facility] he experienced acute dyspnea and was taken to [facility] where he was diagnosed with a PE and LLE DVT. He was discharged back to [facility] on Lovenox 80mg BID. On the morning of 01/19, routine labs at [facility] revealed hgb 5.9, pt opted to return to [facility] for evaluation instead of [facility] since most of his providers are located at this facility. At baseline, his hgb is 11. In ED, pt was noted to have H/H 6.6/19.0. He was transfused 1unit PRBC and admitted to tele floor. Vitals in ED: BP 100/64mmHg, HR 88bpm, T 99.5, RR 18, O2 sat 96% Pt has RUE swelling for which venous doppler was done: negative for DVT. 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 meningioma (recurring) Chronic lympedema - Past Surgical History Past Surgical History: Yes: CABG Additional Past Surgical History: Meningioma resection, metal plates in head - Smoking History Smoking history: Former smoker Have you smoked in the past 12 months: No If you are a former smoker, when did you quit?: 40YRS AGO - Alcohol/Substance Use Hx Alcohol Use: No History of Substance Use: reports: None - Social History Usual Living Arrangement: Yes: Other ([facility]) ADL: Support Services History of Recent Travel: No Home Medications - Allergies Allergies/Adverse Reactions: Allergies Allergy/AdvReac Type Severity Reaction Status Date / Time No Known Drug Allergies Allergy Verified 01/19/19 16:53 strawberry Allergy Hives Verified 01/19/19 20:53 - Home Medications Home Medications: Ambulatory Orders Alprazolam [Xanax] 1 mg PO HS 01/19/19 Amiodarone HCl 100 mg PO DAILY 01/19/19 Atorvastatin Ca [Lipitor] 80 mg PO HS 01/19/19 Carvedilol [Coreg -] 3.125 mg PO DAILY 01/19/19 Dicloxacillin Sodium [Dynapen -] 500 mg PO Q8H 01/19/19 Docusate Sodium [Colace -] 100 mg PO TID 01/19/19 Enoxaparin [Lovenox -] 80 mg SQ Q12H 01/19/19 Escitalopram Oxalate [Lexapro -] 10 mg PO DAILY 01/19/19 Furosemide [Lasix -] 40 mg PO BID 01/19/19 HYDROmorphone [Dilaudid -] 2 mg PO Q3H PRN 01/19/19 HYDROmorphone [Dilaudid -] 4 mg PO Q3H PRN 01/19/19 Insulin Glargine,Hum.rec.anlog [Lantus Solostar] 10 unit SQ HS 01/19/19 Insulin Lispro [Humalog] 100 unit SQ BID 01/19/19 Lacosamide [Vimpat] 100 mg PO Q12H 01/19/19 Levothyroxine [Synthroid -] 175 mcg PO DAILY 01/19/19 Multivitamin [Multiple Vitamins] 1 each PO DAILY 01/19/19 Pantoprazole Sodium [Protonix -] 40 mg PO DAILY 01/19/19 Sennosides [Senna] 2 tab PO HS 01/19/19 Spironolactone [Aldactone] 25 mg PO DAILY 01/19/19 Tamsulosin HCl [Flomax] 0.4 mg PO DAILY 01/19/19 Family Disease History - Family Disease History Family Disease History: Diabetes: Mother ( ( 70) natural causes), Other : Father ( (80s) aspiration), Mother, Brother ( alive (62) ), Sister ( alive (66) OA) Review of Systems - Review of Systems Constitutional: reports: No Symptoms Eyes: reports: No Symptoms HENT: reports: No Symptoms Neck: reports: No Symptoms Cardiovascular: reports: No Symptoms Respiratory: reports: No Symptoms Genitourinary: reports: No Symptoms Breasts: reports: No Symptoms Reported Musculoskeletal: reports: Decreased ROM, Extremity Pain, Joint Pain, Joint Swelling, Muscle Pain, Muscle Weakness Integumentary: reports: Change in Color, Eczema, Erythema Neurological: reports: No Symptoms Endocrine: reports: No Symptoms Hematology/Lymphatic: reports: Easily Bruised Psychiatric: reports: Anxiety Physical Examination Vital Signs: Vital Signs Temperature 99.0 F 01/19/19 22:05 Pulse Rate 74 01/19/19 22:05 Respiratory Rate 16 01/19/19 22:05 Blood Pressure 102/59 L 01/19/19 22:05 O2 Sat by Pulse Oximetry (%) 100 01/19/19 22:05 Constitutional: Yes: Anxious, Mild Distress (due to right shoulder and left hip pain), Other (dishelved) Eyes: Yes: Conjunctiva Clear, PERRL HENT: Yes: Atraumatic, Normocephalic Neck: Yes: Supple, Trachea Midline Cardiovascular: Yes: Pulse Irregular Respiratory: Yes: Regular, Diminished (at the bases) Gastrointestinal: Yes: Soft, Hypoactive Bowel Sounds, Other (lower abdomen with SC nodules r/t Lovenox administration, RUQ of abdomen with ecchymosis) ...Rectal Exam: Yes: Guaiac Negative Musculoskeletal: Yes: Joint Stiffness, Muscle Weakness Extremities: Yes: Delayed Capillary Refill Edema: Yes Edema: RUE: 3+, LLE: 2+, RLE: 1+ Peripheral Pulses: Left Radial: 2+, Right Radial: 2+ Integumentary: Yes: Bruising, Skin Tear, Onychomycosis, Venous Stasis Changes, Other (ecchymosis) Wound/Incision: Yes: Other (bilateral lower extremity dressing are clean and intact Left wrist and forearm with Evette wrap due to skin tears) Neurological: Yes: Alert, Oriented, Weakness ...Motor Strength: LLE, RUE (LLE 3/5, RLE 4/5, RUE 3/5), RLE Psychiatric: Yes: Alert, Oriented Labs: CBC, BMP 01/19/19 17:41 01/19/19 17:41 Imaging - Results Ultrasound: Report Reviewed (RUE 01/19/2019: No sonographic evidence of DVT is seen involving the right arm.) Problem List - Problems (1) Acute anemia Assessment/Plan: 2 units PRBCs, then repeat CBC at 1am. Will reassess further transfusion requirement based on rpt labs GI consult Dr. Lizz garcia lovenox f/u iron studies in the AM Code(s): D64.9 - ANEMIA, UNSPECIFIED (2) Hyponatremia syndrome Assessment/Plan: U/A, Urine sodium sent to guide approach to hyponatremia (will calculate FENa to guide therapy) hold Lasix and aldactone today renal consult gentle hydration with NS 42ml/hr overnight Code(s): E87.1 - HYPO-OSMOLALITY AND HYPONATREMIA (3) Prophylactic measure Assessment/Plan: SCDs and VINAY stockings Turn [id number] Senna and colace bowel regimen dicloxacillin 500mg TID for chronic osteomyelitis vimpat 100mg BID for h/o meningioma flomax daily for BPH PPI BID MVI daily Code(s): Z29.9 - ENCOUNTER FOR PROPHYLACTIC MEASURES, UNSPECIFIED (4) Anxiety Assessment/Plan: cont Escitaprolam 10mg daily Xanax 1mg qhs PRN Code(s): F41.9 - ANXIETY DISORDER, UNSPECIFIED (5) Atrial fibrillation Assessment/Plan: no AC at this time Coreg 3.125mg BID amio 100mg daily Admit to tele unit Code(s): I48.91 - UNSPECIFIED ATRIAL FIBRILLATION Qualifiers: Atrial fibrillation type: persistent Qualified Code(s): I48.1 - Persistent atrial fibrillation (6) CAD (coronary artery disease) Assessment/Plan: high dose statin Code(s): I25.10 - ATHSCL HEART DISEASE OF [place] CORONARY ARTERY W/O ANG PCTRS Qualifiers: Coronary Disease-Associated Artery/Lesion type: bypass graft [place] vs. transplanted heart: [place] heart Associated angina: angina presence unspecified Qualified Code(s): I25.810 - Atherosclerosis of coronary artery bypass graft(s) without angina pectoris (7) Hypothyroidism Assessment/Plan: continue synthroid at home f/u TSH and free T4 Code(s): E03.9 - HYPOTHYROIDISM, UNSPECIFIED (8) IDDM (insulin dependent diabetes mellitus) Assessment/Plan: Levemir 10units qhs Insulin SS with meals NPO overnight, cardiac/diabetic diet when able to eat. Code(s): E11.9 - TYPE 2 DIABETES MELLITUS WITHOUT COMPLICATIONS; Z79.4 - CUSTODIAN ATHLETIC EQUIPMENT (CURRENT) USE OF INSULIN Assessment/Plan DISPO: DNR/DNI Visit type - Emergency Visit Emergency Visit: Yes ED Registration Date: 01/19/19 Care time: The patient presented to the Emergency Department on the above date and was hospitalized for further evaluation of their emergent condition. - New Patient This patient is new to me today: Yes Date on this admission: 01/19/19 - Critical Care Critical Care patient: No
[2019-01-19] MEDS ORDERED: DOCUSATE SODIUM 100 MG CAPSULE (FP) PO ONE (22:37)
[2019-01-19] MEDS ORDERED: LACOSAMIDE 50 MG TABLET PO SCH (22:45)
[2019-01-19] MEDS ORDERED: PANTOPRAZOLE 40 MG TABLET (FP) ONE (23:37)
[2019-01-19] MEDS ORDERED: LACOSAMIDE 50 MG TABLET PO ONE (23:43)
[2019-01-19] MEDS: PANTOPRAZOLE 40 MG TABLET (FP) PO SCH (23:50)
[2019-01-19] MEDS: DICLOXACILLIN SODIUM 250 MG CAPSULE PO SCH (23:50)
[2019-01-19] MEDS: LACOSAMIDE 50 MG TABLET PO SCH (23:50)
[2019-01-19] MEDS: DOCUSATE SODIUM 100 MG CAPSULE (FP) PO SCH (23:50)
[2019-01-20 00:21] LABS: ARTERIAL BLOOD GAS BASE EXCESS 4.1 meq/l (-2-2); ARTERIAL BLOOD GAS PCO2 38.3 mmHg (35-45); ARTERIAL BLOOD GAS PO2 72.7 mmHg (80-105); ARTERIAL BLOOD GAS pH 7.47 (7.35-7.45)
[2019-01-20 00:22] LABS: ALLENS TEST POSITIVE
--- NOTE | 2019-01-20 00:53 | PDOC ---
*Physical Exam - Vital Signs Last Vital Signs Temp Pulse Resp BP Pulse Ox 99.0 F 74 16 102/59 L 100 01/19/19 22:05 01/19/19 22:05 01/19/19 22:05 01/19/19 22:05 01/19/19 22:05 ED Treatment Course - LABORATORY CBC & Chemistry Diagram: 01/19/19 17:41 01/19/19 17:41 - ADDITIONAL ORDERS Additional order review: Laboratory Results 01/19/19 01/19/19 01/19/19 17:41 17:41 17:41 PT with INR 14.40 H INR 1.22 H PTT (Actin FS) 30.9 Sodium 129 L Potassium 4.7 Chloride 94 L Carbon Dioxide 28 Anion Gap 7 L BUN 17 Creatinine 0.8 Creat Clearance w eGFR 93.49 Random Glucose 140 H Calcium 7.5 L Total Bilirubin 1.3 H AST 49 H ALT 43 Alkaline Phosphatase 153 H Creatine Kinase 515 H Creatine Kinase Index 0.3 CK-MB (CK-2) 1.7 Troponin I 0.04 Total Protein 5.4 L Albumin 2.2 L Blood Type O POSITIVE Antibody Screen Negative Crossmatch See Detail 01/19/19 17:41 RBC 2.02 L MCV 94.2 MCHC 34.8 RDW 19.4 H MPV 8.5 Neutrophils % 72.9 Lymphocytes % 7.5 L D Monocytes % 17.5 H Eosinophils % 1.0 Basophils % 1.1 - Medications Given in the ED: ED Medications Discontinued Medications Generic Name Dose Route Start Last Admin Trade Name Freq PRN Reason Stop Dose Admin Acetaminophen 1,000 mg 01/19/19 20:18 01/19/19 20:28 Ofirmev Injection - IVPB 01/19/19 20:19 1,000 mg ONCE ONE Administration Morphine Sulfate 2 mg 01/19/19 21:30 01/19/19 21:40 Morphine Injection - IVPUSH 01/19/19 21:31 2 mg ONCE ONE Administration Medical Decision Making - Medical Decision Making 01/20/19 00:49 78yo M with PMH of CHF, IDDM, CAD s/p CABG, Meningioma s/p resection, Afib, PE ( on Lovenox), HTN, HLD, Hypothyroidism presenting to the emergency department from [facility] with anemia. Labs significant for Hgb 6.6 (12/2018). Stool occult negative. Na 129 1U of blood ordered. Pt signed consent. Asking for pain medication giving IV tylenol. Pt still having pain. 2mg IV morphine. Pt admitted med/surg obs. *DC/Admit/Observation/Transfer Diagnosis at time of Disposition: Anemia Qualifiers: Anemia type: unspecified type Qualified Code(s): D64.9 - Anemia, unspecified - Referrals - Patient Instructions - Post Discharge Activity
[2019-01-20] MEDS ORDERED: HYDROmorphone HCl 2 MG/ML VIAL ONE (01:23)
[2019-01-20 02:32] LABS: URINE APPEARANCE CLOUDY; URINE BILIRUBIN NEGATIVE (<2.0 mg/dL); URINE COLOR AMBER; URINE GLUCOSE (UA) NEGATIVE (NEGATIVE); URINE KETONE NEGATIVE (NEGATIVE); URINE LEUK ESTERASE 3+ (NEGATIVE); URINE NITRITE NEGATIVE (NEGATIVE); URINE PROTEIN 1+ (NEGATIVE); URINE UROBILINOGEN 4.0 E.U/dl mg/dL (0.2-1.0)
[2019-01-20 02:37] LABS: URINE BACTERIA MANY /hpf (NONE SEEN); URINE MUCUS RARE
[2019-01-20] MEDS ORDERED: LEVOTHYROXINE NA 75 MCG TABLET (FP) ONE (05:48)
[2019-01-20] MEDS ORDERED: LEVOTHYROXINE NA 100 MCG TABLET (FP) ONE (05:48)
--- NOTE | 2019-01-20 07:56 | CON.GI ---
Consult Consult Specialty:: GI Referred by:: Fátima Kyle NP Reason for Consultation:: Anemia - History of Present Illness Chief Complaint: Low Hg 6.6 History of Present Illness: Patient is a 78 y/o male with past medical history of 4V CABG, pafib, HTN, HLD, systolic CHF, Hypothyroidism, DM, chronic osteomyelitis, [place] meningioma (s/ p resection 2001), and PE/LLE DVT (on lovenox), left greater trochanter fracture in 12/2018 (no surgical intervention). Patient was transferred from [facility] after routine labs showed initial Hg 5.9. While in ER repeat CBC done and Hg 6.6. Rectal exam in ER is guaiac negative. He was transfused with a total of 2U PRBC, pending repeat CBC. Patient denies any prior GI complaints or being followed by GI as an outpatient. Denies having colonoscopy or endoscopy in past. Patient states he has experienced an unknown amount of weight loss recently but contributed it to his lymphedema. Denies abdominal pain, nausea, vomiting, melena, blood in stool, diarrhea. He was noted by nursing staff to have progressive swelling of the left arm. Ct of the arm reveal a hematoma. 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: Peripheral Neuropathy, Other (meningioma) Cardio/Vascular: Yes: AFIB, CAD (s/p CABG), CHF, Deep Vein Thrombosis, HTN, Hyperlipdemia Pulmonary: Yes: Pulmonary Embolus Renal/: Yes: BPH Heme/Onc: Yes: Anemia Psych: Yes: Anxiety Musculoskeletal: Yes: Chronic low back pain, Osteoarthritis Endocrine: Yes: Diabetes Mellitus, Hypothyroidism - Past Surgical History Past Surgical History: Yes: Appendectomy, CABG - Alcohol/Substance Use Hx Alcohol Use: No History of Substance Use: reports: None - Smoking History Smoking history: Former smoker Have you smoked in the past 12 months: No If you are a former smoker, when did you quit?: 40YRS AGO - Social History Usual Living Arrangement: Other ([facility]) ADL: Support Services History of Recent Travel: No Home Medications - Allergies Allergies/Adverse Reactions: Allergies Allergy/AdvReac Type Severity Reaction Status Date / Time No Known Drug Allergies Allergy Verified 01/19/19 16:53 strawberry Allergy Hives Verified 01/19/19 20:53 - Home Medications Home Medications: Ambulatory Orders Alprazolam [Xanax] 1 mg PO HS 01/19/19 Amiodarone HCl 100 mg PO DAILY 01/19/19 Atorvastatin Ca [Lipitor] 80 mg PO HS 01/19/19 Carvedilol [Coreg -] 3.125 mg PO DAILY 01/19/19 Dicloxacillin Sodium [Dynapen -] 500 mg PO Q8H 01/19/19 Docusate Sodium [Colace -] 100 mg PO TID 01/19/19 Enoxaparin [Lovenox -] 80 mg SQ Q12H 01/19/19 Escitalopram Oxalate [Lexapro -] 10 mg PO DAILY 01/19/19 Furosemide [Lasix -] 40 mg PO BID 01/19/19 HYDROmorphone [Dilaudid -] 2 mg PO Q3H PRN 01/19/19 HYDROmorphone [Dilaudid -] 4 mg PO Q3H PRN 01/19/19 Insulin Glargine,Hum.rec.anlog [Lantus Solostar] 10 unit SQ HS 01/19/19 Insulin Lispro [Humalog] 100 unit SQ BID 01/19/19 Lacosamide [Vimpat] 100 mg PO Q12H 01/19/19 Levothyroxine [Synthroid -] 175 mcg PO DAILY 01/19/19 Multivitamin [Multiple Vitamins] 1 each PO DAILY 01/19/19 Pantoprazole Sodium [Protonix -] 40 mg PO DAILY 01/19/19 Sennosides [Senna] 2 tab PO HS 01/19/19 Spironolactone [Aldactone] 25 mg PO DAILY 01/19/19 Tamsulosin HCl [Flomax] 0.4 mg PO DAILY 01/19/19 Family Disease History - Family Disease History Family Disease History: Diabetes: Mother ( ( 70) natural causes), Other : Father ( (80s) aspiration), Mother, Brother ( alive (62) ), Sister ( alive (66) OA) Review of Systems - Review of Systems Constitutional: reports: Lethargy, Unintentional Wgt. Loss Eyes: reports: No Symptoms HENT: reports: No Symptoms Neck: reports: No Symptoms Cardiovascular: reports: No Symptoms Respiratory: reports: No Symptoms Gastrointestinal: reports: No Symptoms Genitourinary: reports: No Symptoms Musculoskeletal: reports: Muscle Weakness Integumentary: reports: Rash Neurological: reports: No Symptoms Endocrine: reports: No Symptoms Hematology/Lymphatic: reports: No Symptoms Psychiatric: reports: No Symptoms Physical Exam-GI Vital Signs: Vital Signs Temperature 98 F 01/20/19 07:00 Pulse Rate 92 H 01/20/19 07:00 Respiratory Rate 20 01/20/19 07:00 Blood Pressure 128/71 01/20/19 07:00 O2 Sat by Pulse Oximetry (%) 99 01/20/19 03:35 Constitutional: Yes: No Distress, Calm Eyes: Yes: Conjunctiva Clear HENT: Yes: Atraumatic Neck: Yes: Supple Cardiovascular: Yes: Regular Rate and Rhythm Respiratory: Yes: On Nasal O2, Rhonchi Gastrointestinal Inspection: Yes: Other (ecchymosis). No: WNL, Ascites, Distention, Hernia, Scars ...Auscultate: Yes: Normoactive Bowel Sounds. No: Hyperactive Bowel Sounds, Hypoactive Bowel Sounds, No Bowel Sounds, Other ...Palpate: Yes: Soft, Other (non tender, non distended) ...Percussion: Yes: Tympanitic Genitourinary: Yes: Incontinence Edema: Yes (RUE lymphedema) Integumentary: Yes: Other (ecchymosis RUE, LUE, lower abdomen) Neurological: Yes: Alert, Oriented Psychiatric: Yes: Alert, Oriented Labs: CBC, BMP 01/19/19 17:41 01/19/19 17:41 INR, PTT INR 1.22 (0.83-1.09) H 01/19/19 17:41 Problem List - Problems (1) Acute anemia Assessment/Plan: most likely secondary to large hematoma of the left arm >monitor Hgb >transfuse if Hg <7.0 to avoid fluid overload >continue pantoprazole BID > patient poor candidate for GI w/u at this time, will continue supportive care . case discussed with Dr Romano Code(s): D64.9 - ANEMIA, UNSPECIFIED (2) Unintentional weight loss Assessment/Plan: >order PSA, CEA, CA 19-9, AFP Code(s): R63.4 - ABNORMAL WEIGHT LOSS
[2019-01-20 09:08] LABS: BASO % 1.2 % (0-2.0); EOS % 1.3 % (0-4.5); HEMATOCRIT 23.2 % (35.4-49); LYMPH % 7.7 % (8-40); MCH 31.5 pg (25.7-33.7); MCHC 34.6 g/dl (32.0-35.9); MEAN CELL VOLUME 91.2 fl (80-96); MEAN PLT VOLUME 8.1 fl (7.5-11.1); MONO % 17.8 % (3.8-10.2); PLATELET COUNT 267 K/MM3 (134-434); RBC 2.54 M/mm3 (4.00-5.60); RDW 18.8 % (11.9-15.9); WHITE BLOOD COUNT 8.9 K/mm3 (4.0-10.0)
[2019-01-20 09:21] LABS: INR 1.18 (0.83-1.09); PROTHROMBIN TIME (PATIENT) 13.9 SEC (9.7-13.0)
[2019-01-20 09:23] LABS: ACTIVATED PTT 29.6 SECONDS (25.2-36.5)
[2019-01-20 09:49] LABS: ALBUMIN 2.2 g/dl (3.4-5.0); ALK PHOS 145 U/L (45-117); ANION GAP 6 MMOL/L (8-16); BILIRUBIN,TOTAL 1.8 mg/dL (0.2-1); BLOOD UREA NITROGEN 23 mg/dL (7-18); CALCIUM 7.7 mg/dL (8.5-10.1); CHLORIDE 97 mmol/L (98-107); CO2 28 mmol/L (21-32); CREATININE 0.9 mg/dL (0.55-1.3); GLUCOSE,RANDOM 121 mg/dL (74-106); MAGNESIUM 2.2 mg/dL (1.8-2.4); PHOSPHOROUS 3.6 mg/dL (2.5-4.9); POTASSIUM 4.4 mmol/L (3.5-5.1); SGOT/AST 45 U/L (15-37); SGPT/ALT 42 U/L (13-61); SODIUM 131 mmol/L (136-145); TOT PROT 5.2 g/dl (6.4-8.2)
[2019-01-20] MEDS: DOCUSATE SODIUM 100 MG CAPSULE (FP) PO SCH ×3 (09:49→22:33)
[2019-01-20] MEDS: DICLOXACILLIN SODIUM 250 MG CAPSULE PO SCH ×3 (09:49→22:35)
[2019-01-20] MEDS: INSULIN SLIDING SCALE (NOVOLOG) 1 VIAL SQ SCH ×4 (09:49→22:38)
[2019-01-20] MEDS: LEVOTHYROXINE 100 MCG, LEVOTHYROXINE 75 MCG PO SCH (09:52)
[2019-01-20] MEDS: PANTOPRAZOLE 40 MG TABLET (FP) PO SCH ×2 (09:54→22:32)
[2019-01-20] MEDS: MULTIVITAMINS (DAILY MVI) TABLET (FP) PO SCH (09:54)
[2019-01-20] MEDS: TAMSULOSIN HCL 0.4 MG CAP PO SCH (09:54)
[2019-01-20] MEDS: ESCITALOPRAM OXALATE 10 MG TABLET (FP) PO SCH (09:54)
[2019-01-20] MEDS: LACOSAMIDE 50 MG TABLET PO SCH ×2 (09:54→22:32)
[2019-01-20] MEDS: AMIODARONE HCL 200 MG TABLET (FP) PO SCH (09:55)
[2019-01-20] MEDS: SPIRONOLACTONE 25 MG TABLET (FP) PO SCH (09:57)
[2019-01-20] MEDS: CARVEDILOL 3.125 MG TABLET (FP) PO SCH (09:57)
[2019-01-20] MEDS ORDERED: LEVOTHYROXINE NA 175 MCG TABLET PO SCH (10:00)
--- NOTE | 2019-01-20 10:21 | PN ---
Progress Note (short form) - Note Progress Note: Weak no SOB No chest pain no overt bleeding Vital Signs - 24 hr 01/19/19 01/19/19 01/19/19 16:53 20:50 21:48 Temperature 99.5 F 99.5 F 98.4 F Pulse Rate 88 Pulse Rate [ Apical] Pulse Rate [ 80 82 Left Radial] Respiratory 18 18 16 Rate Blood Pressure 100/64 Blood Pressure 100/64 101/64 [Left Arm] O2 Sat by Pulse 96 99 99 Oximetry (%) 01/19/19 01/20/19 01/20/19 22:05 00:50 02:00 Temperature 99.0 F 98.0 F 97.8 F Pulse Rate 111 H Pulse Rate [ 74 Apical] Pulse Rate [ 81 Left Radial] Respiratory 16 16 20 Rate Blood Pressure 101/58 L Blood Pressure 102/59 L 98/51 L [Left Arm] O2 Sat by Pulse 100 99 Oximetry (%) 01/20/19 01/20/19 03:35 07:00 Temperature 98 F Pulse Rate 92 H Pulse Rate [ Apical] Pulse Rate [ Left Radial] Respiratory 20 20 Rate Blood Pressure 128/71 Blood Pressure [Left Arm] O2 Sat by Pulse 99 Oximetry (%) Current Medications Generic Name Dose Route Start Last Admin Trade Name Freq PRN Reason Stop Dose Admin Alprazolam 1 mg 01/20/19 22:00 Xanax - PO HS EUGENE Amiodarone HCl 100 mg 01/20/19 10:00 01/20/19 09:55 Cordarone - PO 100 mg DAILY EUGENE Administration Atorvastatin Calcium 80 mg 01/20/19 22:00 Lipitor - PO HS EUGENE Carvedilol 3.125 mg 01/20/19 10:00 01/20/19 09:57 Coreg - PO Not Given DAILY EUGENE Dicloxacillin Sodium 500 mg 01/19/19 22:15 01/20/19 09:49 Dynapen - PO Not Given TID EUGENE Docusate Sodium 100 mg 01/19/19 22:15 01/20/19 09:49 Colace - PO Not Given TID EUGENE Escitalopram Oxalate 10 mg 01/20/19 10:00 01/20/19 09:54 Lexapro - PO 10 mg DAILY EUGENE Administration Hydrocortisone 1 applic 01/20/19 10:30 Anusol 2.5% Hc Cream - TP BID EUGENE Hydromorphone HCl 2 mg 01/20/19 10:18 Dilaudid - PO Q4H PRN PAIN LEVEL 7 - 10 Sodium Chloride 1,000 mls @ 42 mls/hr 01/19/19 22:30 01/20/19 09:48 Normal Saline - IV Not Given ASDIR [facility] Insulin Aspart 1 vial 01/20/19 07:00 01/20/19 09:49 Novolog Vial Sliding Scale - SQ Not Given ACHS [facility] Protocol Insulin Detemir 10 units 01/20/19 22:00 Levemir Vial SQ HS [facility] Lacosamide 100 mg 01/19/19 23:45 01/20/19 09:54 Vimpat - PO 100 mg BID EUGENE Administration Levothyroxine Sodium 100 mcg/ 175 mcg 01/20/19 07:00 01/20/19 09:52 Levothyroxine Sodium 75 mcg PO 175 mcg DAILY@0700 [facility] Administration Multi-Ingredient Ointment 1 applic 01/20/19 10:30 Zinc Oxide TP BID [facility] Multivitamins/Minerals/Vitamin C 1 tab 01/20/19 10:00 01/20/19 09:54 Tab-A-Vit - PO 1 tab DAILY [facility] Administration Nystatin 1 applic 01/20/19 10:30 Mycostatin Cream - TP BID [facility] Pantoprazole Sodium 40 mg 01/19/19 22:30 01/20/19 09:54 Protonix - PO 40 mg BID EU[facility]E Administration Senna 2 tab 01/20/19 22:00 Senna - PO HS [facility] Spironolactone 25 mg 01/20/19 10:00 01/20/19 09:57 Aldactone - PO Not Given DAILY [facility] Tamsulosin HCl 0.4 mg 01/20/19 08:30 01/20/19 09:54 Flomax - PO 0.4 mg DAILY@0830 [facility] Administration Laboratory Results - last 24 hr 01/19/19 01/19/19 01/19/19 17:41 17:41 17:41 WBC 10.2 H RBC 2.02 L Hgb 6.6 L* Hct 19.0 L D MCV 94.2 MCH 32.8 MCHC 34.8 RDW 19.4 H Plt Count 275 D MPV 8.5 Absolute Neuts (auto) 7.4 Neutrophils % 72.9 Lymphocytes % 7.5 L D Monocytes % 17.5 H Eosinophils % 1.0 Basophils % 1.1 Nucleated RBC % 0 PT with INR 14.40 H INR 1.22 H PTT (Actin FS) 30.9 Anticoagulation Therapy Puncture Site ABG pH ABG pCO2 at Pt Temp ABG pO2 at Pt Temp ABG HCO3 ABG O2 Sat (Measured) ABG O2 Content ABG Base Excess Etx Test O2 Delivery Device Oxygen Flow Rate Vent Mode Vent Rate Mechanical Rate Pressure Support Vent Sodium 129 L Potassium 4.7 Chloride 94 L Carbon Dioxide 28 Anion Gap 7 L BUN 17 Creatinine 0.8 Creat Clearance w eGFR 93.49 Random Glucose 140 H Calcium 7.5 L Phosphorus Magnesium Total Bilirubin 1.3 H AST 49 H ALT 43 Alkaline Phosphatase 153 H Creatine Kinase 515 H Creatine Kinase Index 0.3 CK-MB (CK-2) 1.7 Troponin I 0.04 B-Natriuretic Peptide Total Protein 5.4 L Albumin 2.2 L TSH Free T4 Urine Color Urine Appearance Urine pH Ur Specific [place] Urine Protein Urine Glucose (UA) Urine Ketones Urine Blood Urine Nitrite Urine Bilirubin Urine Urobilinogen Ur Leukocyte Esterase Urine WBC (Auto) Urine RBC (Auto) Urine Bacteria Urine Mucus Urine Osmolality Ur Random Sodium Stool Occult Blood Blood Type Antibody Screen Crossmatch 01/19/19 01/19/19 01/19/19 17:41 19:16 23:45 WBC RBC Hgb Hct MCV MCH MCHC RDW Plt Count MPV Absolute Neuts (auto) Neutrophils % Lymphocytes % Monocytes % Eosinophils % Basophils % Nucleated RBC % PT with INR INR PTT (Actin FS) Anticoagulation Therapy Puncture Site ABG pH ABG pCO2 at Pt Temp ABG pO2 at Pt Temp ABG HCO3 ABG O2 Sat (Measured) ABG O2 Content ABG Base Excess Tex Test O2 Delivery Device Oxygen Flow Rate Vent Mode Vent Rate Mechanical Rate Pressure Support Vent Sodium Potassium Chloride Carbon Dioxide Anion Gap BUN Creatinine Creat Clearance w eGFR Random Glucose Calcium Phosphorus Magnesium Total Bilirubin AST ALT Alkaline Phosphatase Creatine Kinase Creatine Kinase Index CK-MB (CK-2) Troponin I B-Natriuretic Peptide Total Protein Albumin TSH Free T4 Urine Color Urine Appearance Urine pH Ur Specific [place] Urine Protein Urine Glucose (UA) Urine Ketones Urine Blood Urine Nitrite Urine Bilirubin Urine Urobilinogen Ur Leukocyte Esterase Urine WBC (Auto) Urine RBC (Auto) Urine Bacteria Urine Mucus Urine Osmolality 481 Ur Random Sodium Stool Occult Blood Negative Blood Type O POSITIVE Antibody Screen Negative Crossmatch See Detail 0301/20/19 01/20/19 23:45 00:05 00:53 WBC RBC Hgb Hct MCV MCH MCHC RDW Plt Count MPV Absolute Neuts (auto) Neutrophils % Lymphocytes % Monocytes % Eosinophils % Basophils % Nucleated RBC % PT with INR INR PTT (Actin FS) Anticoagulation Therapy No Result Required. Puncture Site Left brachial ABG pH 7.47 H ABG pCO2 at Pt Temp 38.3 ABG pO2 at Pt Temp 72.7 L ABG HCO3 27.6 H ABG O2 Sat (Measured) 95.0 ABG O2 Content 8.3 L* ABG Base Excess 4.1 H Tex Test Positive O2 Delivery Device No Result Required. Oxygen Flow Rate Room air Vent Mode No Result Required. Vent Rate No Result Required. Mechanical Rate No Result Required. Pressure Support Vent No Result Required. Sodium Potassium Chloride Carbon Dioxide Anion Gap BUN Creatinine Creat Clearance w eGFR Random Glucose Calcium Phosphorus Magnesium Total Bilirubin AST ALT Alkaline Phosphatase Creatine Kinase Creatine Kinase Index CK-MB (CK-2) Troponin I B-Natriuretic Peptide Total Protein Albumin TSH Free T4 Urine Color [place] Urine Appearance Cloudy Urine pH 6.0 D Ur Specific [place] 1.015 Urine Protein 1+ H Urine Glucose (UA) Negative Urine Ketones Negative Urine Blood 1+ H Urine Nitrite Negative Urine Bilirubin Negative Urine Urobilinogen 4.0 e.u/dl Ur Leukocyte Esterase 3+ H Urine WBC (Auto) 286 Urine RBC (Auto) 1 Urine Bacteria Many Urine Mucus Rare Urine Osmolality Ur Random Sodium < 18 L Stool Occult Blood Blood Type Antibody Screen Crossmatch 01/20/19 01/20/19 01/20/19 08:44 08:44 08:44 WBC 8.9 RBC 2.54 L Hgb 8.0 L Hct 23.2 L D MCV 91.2 MCH 31.5 MCHC 34.6 RDW 18.8 H Plt Count 267 MPV 8.1 Absolute Neuts (auto) 6.4 Neutrophils % 72.0 Lymphocytes % 7.7 L Monocytes % 17.8 H Eosinophils % 1.3 Basophils % 1.2 Nucleated RBC % 0 PT with INR 13.90 H INR 1.18 H PTT (Actin FS) 29.6 Anticoagulation Therapy Puncture Site ABG pH ABG pCO2 at Pt Temp ABG pO2 at Pt Temp ABG HCO3 ABG O2 Sat (Measured) ABG O2 Content ABG Base Excess Tex Test O2 Delivery Device Oxygen Flow Rate Vent Mode Vent Rate Mechanical Rate Pressure Support Vent Sodium 131 L Potassium 4.4 Chloride 97 L Carbon Dioxide 28 Anion Gap 6 L BUN 23 H Creatinine 0.9 Creat Clearance w eGFR 81.61 Random Glucose 121 H Calcium 7.7 L Phosphorus 3.6 Magnesium 2.2 Total Bilirubin 1.8 H AST 45 H ALT 42 Alkaline Phosphatase 145 H Creatine Kinase Creatine Kinase Index CK-MB (CK-2) Troponin I B-Natriuretic Peptide Total Protein 5.2 L Albumin 2.2 L TSH 5.37 H D Free T4 1.59 H Urine Color Urine Appearance Urine pH Ur Specific [place] Urine Protein Urine Glucose (UA) Urine Ketones Urine Blood Urine Nitrite Urine Bilirubin Urine Urobilinogen Ur Leukocyte Esterase Urine WBC (Auto) Urine RBC (Auto) Urine Bacteria Urine Mucus Urine Osmolality Ur Random Sodium Stool Occult Blood Blood Type Antibody Screen Crossmatch 01/20/19 08:44 WBC RBC Hgb Hct MCV MCH MCHC RDW Plt Count MPV Absolute Neuts (auto) Neutrophils % Lymphocytes % Monocytes % Eosinophils % Basophils % Nucleated RBC % PT with INR INR PTT (Actin FS) Anticoagulation Therapy Puncture Site ABG pH ABG pCO2 at Pt Temp ABG pO2 at Pt Temp ABG HCO3 ABG O2 Sat (Measured) ABG O2 Content ABG Base Excess Tex Test O2 Delivery Device Oxygen Flow Rate Vent Mode Vent Rate Mechanical Rate Pressure Support Vent Sodium Potassium Chloride Carbon Dioxide Anion Gap BUN Creatinine Creat Clearance w eGFR Random Glucose Calcium Phosphorus Magnesium Total Bilirubin AST ALT Alkaline Phosphatase Creatine Kinase Creatine Kinase Index CK-MB (CK-2) Troponin I B-Natriuretic Peptide 7101.0 H Total Protein Albumin TSH Free T4 Urine Color Urine Appearance Urine pH Ur Specific [place] Urine Protein Urine Glucose (UA) Urine Ketones Urine Blood Urine Nitrite Urine Bilirubin Urine Urobilinogen Ur Leukocyte Esterase Urine WBC (Auto) Urine RBC (Auto) Urine Bacteria Urine Mucus Urine Osmolality Ur Random Sodium Stool Occult Blood Blood Type Antibody Screen Crossmatch S1 S2 Irregular Lungs decreased breath sounds Abd- soft, NT trace edema B/L -- dressing in place Right arm-- edema, hematoma,tender PLAN doppler rt arm - negative for DVT -s/p 2 units PRBC - check CT right arm-- may have bled into the arm - possible source of acute anemia sodium improving- may need to restart Lasix Nephrology eval and GI eval Stool guaic negative Problem List - Problems (1) Acute anemia Assessment/Plan: Guaic negative S/p 2 units PRBC not on anticoagulation GI eval check CT arm right Code(s): D64.9 - ANEMIA, UNSPECIFIED (2) Hyponatremia syndrome Assessment/Plan: sodium improving may need to restart Lasix Nephrology eval Code(s): E87.1 - HYPO-OSMOLALITY AND HYPONATREMIA (3) Atrial fibrillation Assessment/Plan: rate controlled Not on Anticoagulation Code(s): I48.91 - UNSPECIFIED ATRIAL FIBRILLATION Qualifiers: Atrial fibrillation type: persistent Qualified Code(s): I48.1 - Persistent atrial fibrillation (4) Congestive heart disease Assessment/Plan: compensated Code(s): I50.9 - HEART FAILURE, UNSPECIFIED Qualifiers: Heart failure type: combined systolic and diastolic Heart failure chronicity: acute on chronic Qualified Code(s): I50.43 - Acute on chronic combined systolic (congestive) and diastolic (congestive) heart failure (5) HTN (hypertension) Code(s): I10 - ESSENTIAL (PRIMARY) HYPERTENSION Qualifiers: Hypertension type: essential hypertension Qualified Code(s): I10 - Essential (primary) hypertension (6) IDDM (insulin dependent diabetes mellitus) Code(s): E11.9 - TYPE 2 DIABETES MELLITUS WITHOUT COMPLICATIONS; Z79.4 - HALFWAY (CURRENT) USE OF INSULIN (7) Intertrochanteric fracture Code(s): S72.143A - DISPLACED INTERTROCHANTERIC FRACTURE OF UNSP FEMUR, INIT Qualifiers: Encounter type: initial encounter Fracture type: closed Fracture alignment: nondisplaced Laterality: left Qualified Code(s): S72.145A - Nondisplaced intertrochanteric fracture of left femur, initial encounter for closed fracture
--- NOTE | 2019-01-20 10:43 | EKG ---
Test Reason : Blood Pressure : / mmHG Vent. Rate : 094 BPM Atrial Rate : 147 BPM P-R Int : 000 ms QRS Dur : 128 ms QT Int : 420 ms P-R-T Axes : 000 -48 130 degrees QTc Int : 525 ms ATRIAL FIBRILLATION WITH PREMATURE VENTRICULAR OR ABERRANTLY CONDUCTED COMPLEXES LEFT AXIS DEVIATION NON-SPECIFIC INTRA-VENTRICULAR CONDUCTION BLOCK INFERIOR INFARCT (CITED ON OR BEFORE 23-JUL-2006) ABNORMAL ECG Confirmed by Santo Troy MD ([id number]) on 01/20/2019 10:42:52 AM Referred By: Confirmed By:Santo Troy MD
[2019-01-20] MEDS: ZINC OXIDE 20% TOPICAL OINTMENT 30 GM TUBE TP SCH ×2 (13:54→22:51)
[2019-01-20] MEDS: NYSTATIN 100,000 UNIT/GM TOPICAL CREAM 15 GM TUBE TP SCH ×2 (13:54→22:38)
[2019-01-20] MEDS: HYDROCORTISONE 2.5% TOPICAL CREAM 30 GM TUBE TP SCH ×2 (13:54→22:38)
[2019-01-20 14:47] VITALS: BMI 25.4
[2019-01-20] MEDS: HYDROmorphone HCL 2 MG TABLET PO PRN (15:39)
--- NOTE | 2019-01-20 17:28 | CONSULT ---
Consult Consult Specialty:: Nephrology Reason for Consultation:: hyponatremia - History of Present Illness Chief Complaint: sent in for anemia History of Present Illness: Pt is a 78 year old male with pmhx of CHF, lower ext lymphedema, DM, CAD, CABG, HTN, a-fib, anxiety, HTN, HLD and hypothyroidism who was sent in from rehab for anemia. He was found to be hyponatremic and I was called to evaluate him. He had shortness of breath earlier today. He did get two units of PRBC for anemia. He was found to have an intramuscular hematoma. He says that his urine has been darker than usual. He denies dysuria or hematuria. He denies fevers or chills. - History Source History Provided By: Patient, Medical Record - Past Medical History LOG RIDER: Yes: Peripheral Neuropathy, Other (meningioma) Cardio/Vascular: Yes: AFIB, CAD (s/p CABG), CHF, Deep Vein Thrombosis, HTN, Hyperlipdemia Pulmonary: Yes: Pulmonary Embolus Renal/: Yes: BPH Psych: Yes: Anxiety Musculoskeletal: Yes: Chronic low back pain, Osteoarthritis Endocrine: Yes: Diabetes Mellitus, Hypothyroidism - Past Surgical History Past Surgical History: Yes: Appendectomy, CABG - Alcohol/Substance Use Hx Alcohol Use: No History of Substance Use: reports: None - Smoking History Smoking history: Former smoker Have you smoked in the past 12 months: No If you are a former smoker, when did you quit?: 40YRS AGO - Social History Usual Living Arrangement: Other ([facility]) ADL: Support Services History of Recent Travel: No Home Medications - Allergies Allergies/Adverse Reactions: Allergies Allergy/AdvReac Type Severity Reaction Status Date / Time No Known Drug Allergies Allergy Verified 01/19/19 16:53 strawberry Allergy Hives Verified 01/19/19 20:53 - Home Medications Home Medications: Ambulatory Orders Alprazolam [Xanax] 1 mg PO HS 01/19/19 Amiodarone HCl 100 mg PO DAILY 01/19/19 Atorvastatin Ca [Lipitor] 80 mg PO HS 01/19/19 Carvedilol [Coreg -] 3.125 mg PO DAILY 01/19/19 Dicloxacillin Sodium [Dynapen -] 500 mg PO Q8H 01/19/19 Docusate Sodium [Colace -] 100 mg PO TID 01/19/19 Enoxaparin [Lovenox -] 80 mg SQ Q12H 01/19/19 Escitalopram Oxalate [Lexapro -] 10 mg PO DAILY 01/19/19 Furosemide [Lasix -] 40 mg PO BID 01/19/19 HYDROmorphone [Dilaudid -] 2 mg PO Q3H PRN 01/19/19 HYDROmorphone [Dilaudid -] 4 mg PO Q3H PRN 01/19/19 Insulin Glargine,Hum.rec.anlog [Lantus Solostar] 10 unit SQ HS 01/19/19 Insulin Lispro [Humalog] 100 unit SQ BID 01/19/19 Lacosamide [Vimpat] 100 mg PO Q12H 01/19/19 Levothyroxine [Synthroid -] 175 mcg PO DAILY 01/19/19 Multivitamin [Multiple Vitamins] 1 each PO DAILY 01/19/19 Pantoprazole Sodium [Protonix -] 40 mg PO DAILY 01/19/19 Sennosides [Senna] 2 tab PO HS 01/19/19 Spironolactone [Aldactone] 25 mg PO DAILY 01/19/19 Tamsulosin HCl [Flomax] 0.4 mg PO DAILY 01/19/19 Family Disease History - Family Disease History Family Disease History: Diabetes: Mother ( ( 70) natural causes), Other : Father ( (80s) aspiration), Mother, Brother ( alive (62) ), Sister ( alive (66) OA) Review of Systems - Review of Systems Constitutional: reports: Malaise. denies: Chills Eyes: reports: No Symptoms HENT: reports: No Symptoms Neck: reports: No Symptoms Cardiovascular: reports: Edema, Shortness of Breath Respiratory: reports: SOB Gastrointestinal: reports: No Symptoms Genitourinary: reports: No Symptoms Musculoskeletal: reports: Muscle Weakness Neurological: reports: No Symptoms Endocrine: reports: No Symptoms Psychiatric: reports: No Symptoms Physical Exam Vital Signs: Vital Signs Temperature 97.7 F 01/20/19 14:00 Pulse Rate 87 01/20/19 14:00 Respiratory Rate 18 01/20/19 14:00 Blood Pressure 93/59 L 01/20/19 14:00 O2 Sat by Pulse Oximetry (%) 99 01/20/19 03:35 Constitutional: Yes: Calm Eyes: Yes: Conjunctiva Clear HENT: Yes: Atraumatic Cardiovascular: Yes: S1, S2 Respiratory: Yes: Rhonchi Gastrointestinal: Yes: Soft Renal/: Yes: WNL Musculoskeletal: Yes: Muscle Weakness Edema: Yes Edema: LLE: 1+, RLE: 1+ Neurological: Yes: Oriented Psychiatric: Yes: Oriented Labs: CBC, BMP 01/20/19 08:44 01/20/19 08:44 Laboratory Tests 01/19/19 01/19/19 01/19/19 17:41 17:41 23:45 WBC 10.2 H Hgb 6.6 L* Plt Count 275 D Sodium 129 L Potassium Chloride Anion Gap BUN 17 Creatinine 0.8 B-Natriuretic Peptide TSH Free T4 Urine Protein Urine Blood Urine Osmolality 481 Ur Random Sodium 01/19/19 01/20/19 01/20/19 23:45 00:53 08:44 WBC Hgb Plt Count Sodium 131 L Potassium 4.4 Chloride 97 L Anion Gap 6 L BUN 23 H Creatinine 0.9 B-Natriuretic Peptide TSH 5.37 H D Free T4 1.59 H Urine Protein 1+ H Urine Blood 1+ H Urine Osmolality Ur Random Sodium < 18 L 01/20/19 01/20/19 08:44 08:44 WBC 8.9 Hgb 8.0 L Plt Count 267 Sodium Potassium Chloride Anion Gap BUN Creatinine B-Natriuretic Peptide 7101.0 H TSH Free T4 Urine Protein Urine Blood Urine Osmolality Ur Random Sodium Imaging - Results Chest X-ray: Report Reviewed Problem List - Problems (1) Anemia Code(s): D64.9 - ANEMIA, UNSPECIFIED Qualifiers: Anemia type: unspecified type Qualified Code(s): D64.9 - Anemia, unspecified (2) Hyponatremia syndrome Code(s): E87.1 - HYPO-OSMOLALITY AND HYPONATREMIA (3) Atrial fibrillation Code(s): I48.91 - UNSPECIFIED ATRIAL FIBRILLATION Qualifiers: Atrial fibrillation type: persistent Qualified Code(s): I48.1 - Persistent atrial fibrillation (4) Congestive heart disease Code(s): I50.9 - HEART FAILURE, UNSPECIFIED Qualifiers: Heart failure type: combined systolic and diastolic Heart failure chronicity: acute on chronic Qualified Code(s): I50.43 - Acute on chronic combined systolic (congestive) and diastolic (congestive) heart failure Assessment/Plan Current Medications Generic Name Dose Route Start Last Admin Trade Name Freq PRN Reason Stop Dose Admin Alprazolam 1 mg 01/20/19 22:00 Xanax - PO HS [facility] Amiodarone HCl 100 mg 01/20/19 10:00 01/20/19 09:55 Cordarone - PO 100 mg DAILY [facility]E Administration Atorvastatin Calcium 80 mg 01/20/19 22:00 Lipitor - PO HS [facility] Carvedilol 3.125 mg 01/20/19 10:00 01/20/19 09:57 Coreg - PO Not Given DAILY [facility] Dicloxacillin Sodium 500 mg 01/19/19 22:15 01/20/19 15:34 Dynapen - PO 500 mg TID [facility] Administration Docusate Sodium 100 mg 01/19/19 22:15 01/20/19 15:35 Colace - PO 100 mg TID [facility] Administration Escitalopram Oxalate 10 mg 01/20/19 10:00 01/20/19 09:54 Lexapro - PO 10 mg DAILY [facility] Administration Hydrocortisone 1 applic 01/20/19 10:30 01/20/19 13:54 Anusol 2.5% Hc Cream - TP 1 applic BID EU[facility]E Administration Hydromorphone HCl 2 mg 01/20/19 10:18 01/20/19 15:39 Dilaudid - PO 2 mg Q4H PRN Administration PAIN LEVEL 7 - 10 Sodium Chloride 1,000 mls @ 42 mls/hr 01/19/19 22:30 01/20/19 09:48 Normal Saline - IV Not Given ASDIR [facility] Insulin Aspart 1 vial 01/20/19 07:00 01/20/19 12:56 Novolog Vial Sliding Scale - SQ Not Given ACHS [facility] Protocol Insulin Detemir 10 units 01/20/19 22:00 Levemir Vial SQ HS [facility] Lacosamide 100 mg 01/19/19 23:45 01/20/19 09:54 Vimpat - PO 100 mg BID [facility] Administration Levothyroxine Sodium 100 mcg/ 175 mcg 01/20/19 07:00 01/20/19 09:52 Levothyroxine Sodium 75 mcg PO 175 mcg DAILY@0700 [facility] Administration Multi-Ingredient Ointment 1 applic 01/20/19 10:30 01/20/19 13:54 Zinc Oxide TP 1 applic BID [facility] Administration Multivitamins/Minerals/Vitamin C 1 tab 01/20/19 10:00 01/20/19 09:54 Tab-A-Vit - PO 1 tab DAILY [facility] Administration Nystatin 1 applic 01/20/19 10:30 01/20/19 13:54 Mycostatin Cream - TP Not Given BID [facility] Pantoprazole Sodium 40 mg 01/19/19 22:30 01/20/19 09:54 Protonix - PO 40 mg BID [facility] Administration Senna 2 tab 01/20/19 22:00 Senna - PO HS [facility] Spironolactone 25 mg 01/20/19 10:00 01/20/19 09:57 Aldactone - PO Not Given DAILY [facility] Tamsulosin HCl 0.4 mg 01/20/19 08:30 01/20/19 09:54 Flomax - PO 0.4 mg DAILY@0830 [facility] Administration Impression 1. hyponatremia 2. chf 3. anemia 4. cad 5. dm 6. a-fib 7. htn Plan - sodium is improving - repeat labs in am - check serum osm - check cortisol level - check tsh - urine sodium is low which is not consistent with siadh
[2019-01-20] MEDS: SENNOSIDES 8.6MG TABLET (FP) PO SCH (22:32)
[2019-01-20] MEDS: ATORVASTATIN CA 80 MG TABLET (FP) PO SCH (22:32)
[2019-01-20] MEDS: ALPRAZolam 0.25 MG TABLET PO SCH (22:32)
[2019-01-20] MEDS: INSULIN (LEVEMIR) 100 UNITS/ML UNITS SQ SCH (22:33)
[2019-01-20] MEDS ORDERED: PT OWN MED DRAWER 7, Y5N ONE (22:37)
[2019-01-21] MEDS: HYDROmorphone HCL 2 MG TABLET PO PRN ×2 (02:21→09:20)
[2019-01-21 04:14] LABS: SERUM IRON SATURATION 41 % (15-55); TOTAL IRON BINDING CAPACITY 248 ug/dL (250-450); UIBC 147 ug/dL (111-343)
[2019-01-21] MEDS ORDERED: LEVOTHYROXINE NA 75 MCG TABLET (FP) ONE (06:16)
[2019-01-21] MEDS ORDERED: LEVOTHYROXINE NA 100 MCG TABLET (FP) ONE (06:16)
[2019-01-21] MEDS ORDERED: PT OWN MED DRAWER 7, Y5N ONE ×5 (06:16→22:38)
[2019-01-21] MEDS: LEVOTHYROXINE 100 MCG, LEVOTHYROXINE 75 MCG PO SCH (06:29)
[2019-01-21] MEDS: INSULIN SLIDING SCALE (NOVOLOG) 1 VIAL SQ SCH ×4 (06:29→21:19)
[2019-01-21] MEDS: DICLOXACILLIN SODIUM 250 MG CAPSULE PO SCH ×3 (06:30→21:49)
[2019-01-21 07:56] LABS: ALBUMIN 2.2 g/dl (3.4-5.0); ALK PHOS 139 U/L (45-117); ANION GAP 6 MMOL/L (8-16); BILIRUBIN,TOTAL 1.5 mg/dL (0.2-1); BLOOD UREA NITROGEN 22 mg/dL (7-18); CALCIUM 7.4 mg/dL (8.5-10.1); CHLORIDE 98 mmol/L (98-107); CO2 28 mmol/L (21-32); CREATININE 0.8 mg/dL (0.55-1.3); GLUCOSE,RANDOM 85 mg/dL (74-106); POTASSIUM 4.3 mmol/L (3.5-5.1); SGOT/AST 38 U/L (15-37); SGPT/ALT 40 U/L (13-61); SODIUM 132 mmol/L (136-145); TOT PROT 5.1 g/dl (6.4-8.2)
[2019-01-21] MEDS: AMIODARONE HCL 200 MG TABLET (FP) PO SCH (09:19)
[2019-01-21] MEDS: LACOSAMIDE 50 MG TABLET PO SCH ×2 (09:19→21:56)
[2019-01-21] MEDS: MULTIVITAMINS (DAILY MVI) TABLET (FP) PO SCH (09:20)
[2019-01-21] MEDS: TAMSULOSIN HCL 0.4 MG CAP PO SCH (09:21)
[2019-01-21] MEDS: PANTOPRAZOLE 40 MG TABLET (FP) PO SCH ×2 (09:21→21:54)
[2019-01-21] MEDS: ESCITALOPRAM OXALATE 10 MG TABLET (FP) PO SCH (09:22)
[2019-01-21] MEDS: CARVEDILOL 3.125 MG TABLET (FP) PO SCH (09:22)
[2019-01-21] MEDS: HYDROCORTISONE 2.5% TOPICAL CREAM 30 GM TUBE TP SCH ×2 (09:23→21:57)
[2019-01-21] MEDS: ZINC OXIDE 20% TOPICAL OINTMENT 30 GM TUBE TP SCH ×2 (09:23→21:57)
[2019-01-21] MEDS: SPIRONOLACTONE 25 MG TABLET (FP) PO SCH (09:23)
[2019-01-21] MEDS: NYSTATIN 100,000 UNIT/GM TOPICAL CREAM 15 GM TUBE TP SCH ×2 (09:23→21:57)
[2019-01-21] MEDS: DOCUSATE SODIUM 100 MG CAPSULE (FP) PO SCH ×3 (09:23→21:48)
[2019-01-21 10:07] LABS: BASO % 0.8 % (0-2.0); EOS % 0.9 % (0-4.5); HEMATOCRIT 22.1 % (35.4-49); HEMOGLOBIN 7.7 GM/dL (11.7-16.9); LYMPH % 7.3 % (8-40); MCH 31.5 pg (25.7-33.7); MCHC 34.8 g/dl (32.0-35.9); MEAN CELL VOLUME 90.7 fl (80-96); MEAN PLT VOLUME 8.7 fl (7.5-11.1); MONO % 16.3 % (3.8-10.2); NEUT % 74.7 % (42.8-82.8); PLATELET COUNT 249 K/MM3 (134-434); RBC 2.43 M/mm3 (4.00-5.60); RDW 18.4 % (11.9-15.9); WHITE BLOOD COUNT 9.7 K/mm3 (4.0-10.0)
[2019-01-21] MEDS ORDERED: FUROSEMIDE 40 MG/4 ML INJECTABLE VIAL IVPUSH ONE (10:18)
--- NOTE | 2019-01-21 10:21 | PN ---
Progress Note (short form) - Note Progress Note: Weak no SOB No chest pain no overt bleeding sister in law at bedside- pt has given me permission to speak with her Vital Signs - 24 hr 01/20/19 01/20/19 01/20/19 13:58 14:00 19:00 Temperature 97.7 F 97.7 F 99.8 F H Pulse Rate 87 87 77 Respiratory 18 18 18 Rate Blood Pressure 93/59 L 93/59 L 100/57 L O2 Sat by Pulse Oximetry (%) 01/20/19 01/20/19 01/21/19 20:56 22:00 06:00 Temperature 98.6 F 98.1 F Pulse Rate 74 86 Respiratory 18 18 Rate Blood Pressure 99/52 L 98/58 L O2 Sat by Pulse 99 Oximetry (%) 01/21/19 09:17 Temperature 98.8 F Pulse Rate 89 Respiratory 18 Rate Blood Pressure 93/56 L O2 Sat by Pulse Oximetry (%) Current Medications Generic Name Dose Route Start Last Admin Trade Name Freq PRN Reason Stop Dose Admin Alprazolam 1 mg 01/20/19 22:00 01/20/19 22:32 Xanax - PO 1 mg HS EUGENE Administration Amiodarone HCl 100 mg 01/20/19 10:00 01/21/19 09:19 Cordarone - PO 100 mg DAILY EUGENE Administration Atorvastatin Calcium 80 mg 01/20/19 22:00 01/20/19 22:32 Lipitor - PO 80 mg HS EUGENE Administration Carvedilol 3.125 mg 01/20/19 10:00 01/21/19 09:22 Coreg - PO Not Given DAILY EUGENE Dicloxacillin Sodium 500 mg 01/19/19 22:15 01/21/19 06:30 Dynapen - PO 500 mg TID EUGENE Administration Docusate Sodium 100 mg 01/19/19 22:15 01/21/19 09:23 Colace - PO Not Given TID EUGENE Escitalopram Oxalate 10 mg 01/20/19 10:00 01/21/19 09:22 Lexapro - PO 10 mg DAILY EUGENE Administration Furosemide 40 mg 01/21/19 10:18 Lasix Injection - IVPUSH 01/21/19 10:19 ONCE ONE Hydrocortisone 1 applic 01/20/19 10:30 01/21/19 09:23 Anusol 2.5% Hc Cream - TP 1 applic BID EUGENE Administration Hydromorphone HCl 2 mg 01/20/19 10:18 01/21/19 09:20 Dilaudid - PO 2 mg Q4H PRN Administration PAIN LEVEL 7 - 10 Ceftriaxone Sodium 1 gm/ 50 mls @ 100 mls/hr 01/21/19 10:00 Dextrose IVPB DAILY EUGENE Insulin Aspart 1 vial 01/20/19 07:00 01/21/19 06:29 Novolog Vial Sliding Scale - SQ Not Given ACHS [facility] Protocol Insulin Detemir 10 units 01/20/19 22:00 01/20/19 22:33 Levemir Vial SQ 10 units HS EUGENE Administration Lacosamide 100 mg 01/19/19 23:45 01/21/19 09:19 Vimpat - PO 100 mg BID EUGENE Administration Levothyroxine Sodium 100 mcg/ 175 mcg 01/20/19 07:00 01/21/19 06:29 Levothyroxine Sodium 75 mcg PO 175 mcg DAILY@0700 EUGENE Administration Multi-Ingredient Ointment 1 applic 01/20/19 10:30 01/21/19 09:23 Zinc Oxide TP 1 applic BID EUGENE Administration Multivitamins/Minerals/Vitamin C 1 tab 01/20/19 10:00 01/21/19 09:20 Tab-A-Vit - PO 1 tab DAILY EUGENE Administration Nystatin 1 applic 01/20/19 10:30 01/21/19 09:23 Mycostatin Cream - TP Not Given BID EUGENE Pantoprazole Sodium 40 mg 01/19/19 22:30 01/21/19 09:21 Protonix - PO 40 mg BID EUGENE Administration Senna 2 tab 01/20/19 22:00 01/20/19 22:32 Senna - PO Not Given HS EUGENE Spironolactone 25 mg 01/20/19 10:00 01/21/19 09:23 Aldactone - PO Not Given DAILY EUGENE Tamsulosin HCl 0.4 mg 01/20/19 08:30 01/21/19 09:21 Flomax - PO 0.4 mg DAILY@0830 EUGENE Administration Laboratory Results - last 24 hr 01/19/19 01/20/19 01/20/19 17:41 08:44 09:27 WBC RBC Hgb Hct MCV MCH MCHC RDW Plt Count MPV Absolute Neuts (auto) Neutrophils % Lymphocytes % Monocytes % Eosinophils % Basophils % Nucleated RBC % Sodium Potassium Chloride Carbon Dioxide Anion Gap BUN Creatinine Creat Clearance w eGFR POC Glucometer Random Glucose Calcium Iron 101 TIBC 248 L Iron Saturation 41 Total Bilirubin AST ALT Alkaline Phosphatase Total Protein Albumin Tumor Marker AFP Carcinoembryonic Ag 3.3 CA 19-9 Antigen Prostate Specific Ag TSH Crossmatch See Detail 01/20/19 01/20/19 01/20/19 09:27 12:27 17:51 WBC RBC Hgb Hct MCV MCH MCHC RDW Plt Count MPV Absolute Neuts (auto) Neutrophils % Lymphocytes % Monocytes % Eosinophils % Basophils % Nucleated RBC % Sodium Potassium Chloride Carbon Dioxide Anion Gap BUN Creatinine Creat Clearance w eGFR POC Glucometer 124 144 Random Glucose Calcium Iron TIBC Iron Saturation Total Bilirubin AST ALT Alkaline Phosphatase Total Protein Albumin Tumor Marker AFP < 0.7 Carcinoembryonic Ag CA 19-9 Antigen 32 Prostate Specific Ag 3.80 D TSH Crossmatch 01/20/19 01/21/19 01/21/19 22:10 06:28 06:30 WBC RBC Hgb Hct MCV MCH MCHC RDW Plt Count MPV Absolute Neuts (auto) Neutrophils % Lymphocytes % Monocytes % Eosinophils % Basophils % Nucleated RBC % Sodium 132 L Potassium 4.3 Chloride 98 Carbon Dioxide 28 Anion Gap 6 L BUN 22 H Creatinine 0.8 Creat Clearance w eGFR 93.49 POC Glucometer 142 96 Random Glucose 85 Calcium 7.4 L Iron TIBC Iron Saturation Total Bilirubin 1.5 H AST 38 H ALT 40 Alkaline Phosphatase 139 H Total Protein 5.1 L Albumin 2.2 L Tumor Marker AFP Carcinoembryonic Ag CA 19-9 Antigen Prostate Specific Ag TSH 2.44 D Crossmatch 01/21/19 06:30 WBC 9.7 RBC 2.43 L Hgb 7.7 L Hct 22.1 L MCV 90.7 MCH 31.5 MCHC 34.8 RDW 18.4 H Plt Count 249 MPV 8.7 Absolute Neuts (auto) 7.2 Neutrophils % 74.7 Lymphocytes % 7.3 L Monocytes % 16.3 H Eosinophils % 0.9 Basophils % 0.8 Nucleated RBC % 0 Sodium Potassium Chloride Carbon Dioxide Anion Gap BUN Creatinine Creat Clearance w eGFR POC Glucometer Random Glucose Calcium Iron TIBC Iron Saturation Total Bilirubin AST ALT Alkaline Phosphatase Total Protein Albumin Tumor Marker AFP Carcinoembryonic Ag CA 19-9 Antigen Prostate Specific Ag TSH Crossmatch S1 S2 Irregular Lungs decreased breath sounds Abd- soft, NT trace edema B/L -- dressing in place Right arm-- edema, hematoma,tender PLAN doppler rt arm - negative for DVT CT arm noted-- large hematoma sodium improving- may need to restart Lasix Nephrology eval and GI eval noted-- high risk for endoscopic procedures at this time Does not appear to have GI bleeding will transfuse 2 units today give lasix in between holding DVT prophylaxis no surgical interventions of left hip as per Orthopedic surgeon from last admission Stool guaic negative Problem List - Problems (1) Acute anemia Code(s): D64.9 - ANEMIA, UNSPECIFIED (2) Hyponatremia syndrome Code(s): E87.1 - HYPO-OSMOLALITY AND HYPONATREMIA (3) Atrial fibrillation Code(s): I48.91 - UNSPECIFIED ATRIAL FIBRILLATION Qualifiers: Atrial fibrillation type: persistent Qualified Code(s): I48.1 - Persistent atrial fibrillation (4) Congestive heart disease Code(s): I50.9 - HEART FAILURE, UNSPECIFIED Qualifiers: Heart failure type: combined systolic and diastolic Heart failure chronicity: acute on chronic Qualified Code(s): I50.43 - Acute on chronic combined systolic (congestive) and diastolic (congestive) heart failure (5) HTN (hypertension) Code(s): I10 - ESSENTIAL (PRIMARY) HYPERTENSION Qualifiers: Hypertension type: essential hypertension Qualified Code(s): I10 - Essential (primary) hypertension (6) IDDM (insulin dependent diabetes mellitus) Code(s): E11.9 - TYPE 2 DIABETES MELLITUS WITHOUT COMPLICATIONS; Z79.4 - SHELTER (CURRENT) USE OF INSULIN (7) Intertrochanteric fracture Code(s): S72.143A - DISPLACED INTERTROCHANTERIC FRACTURE OF UNSP FEMUR, INIT Qualifiers: Encounter type: initial encounter Fracture type: closed Fracture alignment: nondisplaced Laterality: left Qualified Code(s): S72.145A - Nondisplaced intertrochanteric fracture of left femur, initial encounter for closed fracture
[2019-01-21 12:42] LABS: OSMOLALITY,SERUM 273 mosm/kg (278-305)
[2019-01-21] MEDS ORDERED: SODIUM CHLORIDE 1 GM TABLET PO ONE (13:31)
--- NOTE | 2019-01-21 13:31 | PN ---
Progress Note, Physician History of Present Illness: Pt seen and examined at bedside. He is awake and alert. He denies shortness of breath. He feels that his PO intake is improving. He is currently getting a prbc transfusion. - Current Medication List Current Medications: Active Medications Alprazolam (Xanax -) 1 mg PO [facility] Last Admin: 01/20/19 22:32 Dose: 1 mg Amiodarone HCl (Cordarone -) 100 mg PO DAILY [facility] Last Admin: 01/21/19 09:19 Dose: 100 mg Atorvastatin Calcium (Lipitor -) 80 mg PO [facility] Last Admin: 01/20/19 22:32 Dose: 80 mg Carvedilol (Coreg -) 3.125 mg PO DAILY [facility] Last Admin: 01/21/19 09:22 Dose: Not Given Dicloxacillin Sodium (Dynapen -) 500 mg PO TID [facility] Last Admin: 01/21/19 06:30 Dose: 500 mg Docusate Sodium (Colace -) 100 mg PO TID [facility] Last Admin: 01/21/19 09:23 Dose: Not Given Escitalopram Oxalate (Lexapro -) 10 mg PO DAILY [facility] Last Admin: 01/21/19 09:22 Dose: 10 mg Hydrocortisone (Anusol 2.5% Hc Cream -) 1 applic TP BID [facility] Last Admin: 01/21/19 09:23 Dose: 1 applic Hydromorphone HCl (Dilaudid -) 2 mg PO Q4H PRN PRN Reason: PAIN LEVEL 7 - 10 Last Admin: 01/21/19 09:20 Dose: 2 mg Ceftriaxone Sodium 1 gm/ (Dextrose) 50 mls @ 100 mls/hr IVPB DAILY [facility] Insulin Aspart (Novolog Vial Sliding Scale -) 1 vial SQ [facility]; Protocol Last Admin: 01/21/19 13:06 Dose: Not Given Insulin Detemir (Levemir Vial) 10 units SQ [facility] Last Admin: 01/20/19 22:33 Dose: 10 units Lacosamide (Vimpat -) 100 mg PO BID [facility] Last Admin: 01/21/19 09:19 Dose: 100 mg Levothyroxine Sodium 100 mcg/ (Levothyroxine Sodium 75 mcg) 175 mcg PO DAILY@ 0700 [facility] Last Admin: 01/21/19 06:29 Dose: 175 mcg Multi-Ingredient Ointment (Zinc Oxide) 1 applic TP BID [facility] Last Admin: 01/21/19 09:23 Dose: 1 applic Multivitamins/Minerals/Vitamin C (Tab-A-Vit -) 1 tab PO DAILY [facility] Last Admin: 01/21/19 09:20 Dose: 1 tab Nystatin (Mycostatin Cream -) 1 applic TP BID [facility] Last Admin: 01/21/19 09:23 Dose: Not Given Pantoprazole Sodium (Protonix -) 40 mg PO BID [facility] Last Admin: 01/21/19 09:21 Dose: 40 mg Senna (Senna -) 2 tab PO HS [facility] Last Admin: 01/20/19 22:32 Dose: Not Given Spironolactone (Aldactone -) 25 mg PO DAILY [facility] Last Admin: 01/21/19 09:23 Dose: Not Given Tamsulosin HCl (Flomax -) 0.4 mg PO DAILY@0830 [facility] Last Admin: 01/21/19 09:21 Dose: 0.4 mg - Objective Vital Signs: Vital Signs Temperature 98.8 F 01/21/19 09:17 Pulse Rate 89 01/21/19 09:17 Respiratory Rate 18 01/21/19 09:17 Blood Pressure 93/56 L 01/21/19 09:17 O2 Sat by Pulse Oximetry (%) 99 01/20/19 20:56 Constitutional: Yes: Calm Eyes: Yes: Conjunctiva Clear HENT: Yes: Atraumatic Neck: Yes: Supple Cardiovascular: Yes: S1, S2 Respiratory: Yes: CTA Bilaterally Gastrointestinal: Yes: Soft Genitourinary: Yes: WNL Musculoskeletal: Yes: Muscle Pain, Muscle Weakness Edema: Yes Edema: LLE: Trace, RLE: Trace Neurological: Yes: Oriented Psychiatric: Yes: Oriented Labs: CBC, BMP 01/21/19 06:30 01/21/19 06:30 INR, PTT INR 1.18 (0.83-1.09) H 01/20/19 08:44 Problem List - Problems (1) Anemia Code(s): D64.9 - ANEMIA, UNSPECIFIED Qualifiers: Anemia type: unspecified type Qualified Code(s): D64.9 - Anemia, unspecified (2) Hyponatremia syndrome Code(s): E87.1 - HYPO-OSMOLALITY AND HYPONATREMIA (3) Atrial fibrillation Code(s): I48.91 - UNSPECIFIED ATRIAL FIBRILLATION Qualifiers: Atrial fibrillation type: persistent Qualified Code(s): I48.1 - Persistent atrial fibrillation (4) Congestive heart disease Code(s): I50.9 - HEART FAILURE, UNSPECIFIED Qualifiers: Heart failure type: combined systolic and diastolic Heart failure chronicity: acute on chronic Qualified Code(s): I50.43 - Acute on chronic combined systolic (congestive) and diastolic (congestive) heart failure Assessment/Plan Current Medications Generic Name Dose Route Start Last Admin Trade Name Freq PRN Reason Stop Dose Admin Alprazolam 1 mg 01/20/19 22:00 01/20/19 22:32 Xanax - PO 1 mg HS EUGENE Administration Amiodarone HCl 100 mg 01/20/19 10:00 01/21/19 09:19 Cordarone - PO 100 mg DAILY EUGENE Administration Atorvastatin Calcium 80 mg 01/20/19 22:00 01/20/19 22:32 Lipitor - PO 80 mg HS [facility] Administration Carvedilol 3.125 mg 01/20/19 10:00 01/21/19 09:22 Coreg - PO Not Given DAILY [facility] Dicloxacillin Sodium 500 mg 01/19/19 22:15 01/21/19 06:30 Dynapen - PO 500 mg TID [facility] Administration Docusate Sodium 100 mg 01/19/19 22:15 01/21/19 09:23 Colace - PO Not Given TID [facility] Escitalopram Oxalate 10 mg 01/20/19 10:00 01/21/19 09:22 Lexapro - PO 10 mg DAILY [facility] Administration Hydrocortisone 1 applic 01/20/19 10:30 01/21/19 09:23 Anusol 2.5% Hc Cream - TP 1 applic BID [facility] Administration Hydromorphone HCl 2 mg 01/20/19 10:18 01/21/19 09:20 Dilaudid - PO 2 mg Q4H PRN Administration PAIN LEVEL 7 - 10 Ceftriaxone Sodium 1 gm/ 50 mls @ 100 mls/hr 01/21/19 10:00 Dextrose IVPB DAILY [facility] Insulin Aspart 1 vial 01/20/19 07:00 01/21/19 13:06 Novolog Vial Sliding Scale - SQ Not Given ACHS [facility] Protocol Insulin Detemir 10 units 01/20/19 22:00 01/20/19 22:33 Levemir Vial SQ 10 units HS EUGENE Administration Lacosamide 100 mg 01/19/19 23:45 01/21/19 09:19 Vimpat - PO 100 mg BID EUGENE Administration Levothyroxine Sodium 100 mcg/ 175 mcg 01/20/19 07:00 01/21/19 06:29 Levothyroxine Sodium 75 mcg PO 175 mcg DAILY@0700 EUGENE Administration Multi-Ingredient Ointment 1 applic 01/20/19 10:30 01/21/19 09:23 Zinc Oxide TP 1 applic BID EUGENE Administration Multivitamins/Minerals/Vitamin C 1 tab 01/20/19 10:00 01/21/19 09:20 Tab-A-Vit - PO 1 tab DAILY EUGENE Administration Nystatin 1 applic 01/20/19 10:30 01/21/19 09:23 Mycostatin Cream - TP Not Given BID EUGENE Pantoprazole Sodium 40 mg 01/19/19 22:30 01/21/19 09:21 Protonix - PO 40 mg BID EUGENE Administration Senna 2 tab 01/20/19 22:00 01/20/19 22:32 Senna - PO Not Given HS [facility] Spironolactone 25 mg 01/20/19 10:00 01/21/19 09:23 Aldactone - PO Not Given DAILY EUGENE Tamsulosin HCl 0.4 mg 01/20/19 08:30 01/21/19 09:21 Flomax - PO 0.4 mg DAILY@0830 EUGENE Administration Laboratory Tests 01/21/19 01/21/19 06:30 06:30 Sodium 132 L Serum Osmolality 273 L TSH 2.44 D Cortisol AM Sample Pending Impression 1. hyponatremia 2. chf 3. anemia 4. cad 5. dm 6. a-fib 7. htn Plan - sodium continues to improve - encourage PO intake - will give a salt tab - repeat labs in am - serum osm is low - check cortisol level
[2019-01-21] MEDS ORDERED: DEXTROSE 5%-WATER - 50 ML IVPB ONE (15:22)
[2019-01-21] MEDS ORDERED: cefTRIAXone SODIUM 1 GM VIAL ONE (15:22)
[2019-01-21] MEDS ORDERED: FUROSEMIDE 40 MG/4 ML INJECTABLE VIAL ONE ×2 (15:22→15:23)
[2019-01-21] MEDS: CEFTRIAXONE 1 GM in DEXTROSE 5%-WATER - 50 ML IVPB SCH (15:27)
[2019-01-21] MEDS: SENNOSIDES 8.6MG TABLET (FP) PO SCH (21:48)
[2019-01-21] MEDS: ALPRAZolam 0.25 MG TABLET PO SCH (21:55)
[2019-01-21] MEDS: ATORVASTATIN CA 80 MG TABLET (FP) PO SCH (21:56)
[2019-01-21] MEDS: INSULIN (LEVEMIR) 100 UNITS/ML UNITS SQ SCH (22:03)
[2019-01-22] MEDS: DOCUSATE SODIUM 100 MG CAPSULE (FP) PO SCH ×3 (06:14→22:49)
[2019-01-22] MEDS: INSULIN SLIDING SCALE (NOVOLOG) 1 VIAL SQ SCH ×4 (06:14→22:55)
[2019-01-22] MEDS ORDERED: LEVOTHYROXINE NA 100 MCG TABLET (FP) ONE (06:15)
[2019-01-22] MEDS ORDERED: LEVOTHYROXINE NA 75 MCG TABLET (FP) ONE (06:15)
[2019-01-22] MEDS ORDERED: PT OWN MED DRAWER 7, Y5N ONE ×5 (06:16→21:07)
[2019-01-22] MEDS: DICLOXACILLIN SODIUM 250 MG CAPSULE PO SCH ×3 (06:19→22:49)
[2019-01-22] MEDS: LEVOTHYROXINE 100 MCG, LEVOTHYROXINE 75 MCG PO SCH (06:19)
[2019-01-22] MEDS ORDERED: INSULIN (NOVOLOG) ASPART 100 UNITS/ML 10ML VIAL ONE ×2 (06:51→12:11)
[2019-01-22] MEDS ORDERED: DEXTROSE 5%-WATER - 50 ML IVPB ONE (09:13)
[2019-01-22] MEDS ORDERED: cefTRIAXone SODIUM 1 GM VIAL ONE (09:13)
[2019-01-22] MEDS: CARVEDILOL 3.125 MG TABLET (FP) PO SCH (09:18)
[2019-01-22] MEDS: LACOSAMIDE 50 MG TABLET PO SCH ×2 (09:19→22:48)
[2019-01-22] MEDS: ZINC OXIDE 20% TOPICAL OINTMENT 30 GM TUBE TP SCH ×2 (09:19→22:55)
[2019-01-22] MEDS: NYSTATIN 100,000 UNIT/GM TOPICAL CREAM 15 GM TUBE TP SCH ×2 (09:19→22:49)
[2019-01-22] MEDS: HYDROCORTISONE 2.5% TOPICAL CREAM 30 GM TUBE TP SCH ×2 (09:19→22:50)
[2019-01-22] MEDS: CEFTRIAXONE 1 GM in DEXTROSE 5%-WATER - 50 ML IVPB SCH (09:19)
[2019-01-22] MEDS: PANTOPRAZOLE 40 MG TABLET (FP) PO SCH ×2 (09:20→22:49)
[2019-01-22] MEDS: TAMSULOSIN HCL 0.4 MG CAP PO SCH (09:20)
[2019-01-22] MEDS: AMIODARONE HCL 200 MG TABLET (FP) PO SCH (09:20)
[2019-01-22] MEDS: SPIRONOLACTONE 25 MG TABLET (FP) PO SCH (09:20)
[2019-01-22] MEDS: MULTIVITAMINS (DAILY MVI) TABLET (FP) PO SCH (09:21)
[2019-01-22] MEDS: ESCITALOPRAM OXALATE 10 MG TABLET (FP) PO SCH (09:22)
[2019-01-22 09:49] LABS: BASO % 0.5 % (0-2.0); EOS % 0.9 % (0-4.5); HEMATOCRIT 26.7 % (35.4-49); HEMOGLOBIN 9.2 GM/dL (11.7-16.9); LYMPH % 5.3 % (8-40); MCH 31.3 pg (25.7-33.7); MCHC 34.5 g/dl (32.0-35.9); MEAN CELL VOLUME 90.6 fl (80-96); MEAN PLT VOLUME 8.4 fl (7.5-11.1); MONO % 14.1 % (3.8-10.2); NEUT % 79.2 % (42.8-82.8); PLATELET COUNT 233 K/MM3 (134-434); RBC 2.95 M/mm3 (4.00-5.60); WHITE BLOOD COUNT 9.7 K/mm3 (4.0-10.0)
[2019-01-22 11:14] LABS: ALK PHOS 143 U/L (45-117); ANION GAP 8 MMOL/L (8-16); BILIRUBIN,TOTAL 2.2 mg/dL (0.2-1); BLOOD UREA NITROGEN 17 mg/dL (7-18); CALCIUM 7.5 mg/dL (8.5-10.1); CHLORIDE 96 mmol/L (98-107); CO2 28 mmol/L (21-32); CREATININE 0.6 mg/dL (0.55-1.3); GLUCOSE,RANDOM 107 mg/dL (74-106); POTASSIUM 3.7 mmol/L (3.5-5.1); SGOT/AST 44 U/L (15-37); SGPT/ALT 47 U/L (13-61); SODIUM 132 mmol/L (136-145)
--- NOTE | 2019-01-22 11:42 | PN ---
Progress Note (short form) - Note Progress Note: Weak no SOB No chest pain no overt bleeding Vital Signs - 24 hr 01/21/19 01/21/19 01/21/19 13:00 16:47 21:00 Temperature 98.2 F 99 F Pulse Rate 82 90 Respiratory 18 20 20 Rate Blood Pressure 90/60 102/66 O2 Sat by Pulse 100 Oximetry (%) 01/21/19 01/22/19 22:00 07:00 Temperature 98.8 F 97.8 F Pulse Rate 93 H 88 Respiratory 20 20 Rate Blood Pressure 104/54 L 94/54 L O2 Sat by Pulse Oximetry (%) Current Medications Generic Name Dose Route Start Last Admin Trade Name Freq PRN Reason Stop Dose Admin Alprazolam 1 mg 01/20/19 22:00 01/21/19 21:55 Xanax - PO 1 mg HS EUGENE Administration Amiodarone HCl 100 mg 01/20/19 10:00 01/22/19 09:20 Cordarone - PO 100 mg DAILY EUGENE Administration Atorvastatin Calcium 80 mg 01/20/19 22:00 01/21/19 21:56 Lipitor - PO 80 mg HS EUGENE Administration Carvedilol 3.125 mg 01/20/19 10:00 01/22/19 09:18 Coreg - PO Not Given DAILY EUGENE Dicloxacillin Sodium 500 mg 01/19/19 22:15 01/22/19 06:19 Dynapen - PO 500 mg TID EUGENE Administration Docusate Sodium 100 mg 01/19/19 22:15 01/22/19 06:14 Colace - PO 100 mg TID EUGENE Administration Escitalopram Oxalate 10 mg 01/20/19 10:00 01/22/19 09:22 Lexapro - PO 10 mg DAILY EUGENE Administration Hydrocortisone 1 applic 01/20/19 10:30 01/22/19 09:19 Anusol 2.5% Hc Cream - TP 1 applic BID EUGENE Administration Hydromorphone HCl 2 mg 01/20/19 10:18 01/21/19 09:20 Dilaudid - PO 2 mg Q4H PRN Administration PAIN LEVEL 7 - 10 Ceftriaxone Sodium 1 gm/ 50 mls @ 100 mls/hr 01/21/19 10:00 01/22/19 09:19 Dextrose IVPB 100 mls/hr DAILY [facility] Administration Insulin Aspart 1 vial 01/20/19 07:00 01/22/19 06:14 Novolog Vial Sliding Scale - SQ Not Given ACHS [facility] Protocol Insulin Detemir 10 units 01/20/19 22:00 01/21/19 22:03 Levemir Vial SQ Not Given HS EUGENE Lacosamide 100 mg 01/19/19 23:45 01/22/19 09:19 Vimpat - PO 100 mg BID EUGENE Administration Levothyroxine Sodium 100 mcg/ 175 mcg 01/20/19 07:00 01/22/19 06:19 Levothyroxine Sodium 75 mcg PO 175 mcg DAILY@0700 EUGENE Administration Multi-Ingredient Ointment 1 applic 01/20/19 10:30 01/22/19 09:19 Zinc Oxide TP 1 applic BID EUGENE Administration Multivitamins/Minerals/Vitamin C 1 tab 01/20/19 10:00 01/22/19 09:21 Tab-A-Vit - PO 1 tab DAILY EUGENE Administration Nystatin 1 applic 01/20/19 10:30 01/22/19 09:19 Mycostatin Cream - TP 1 applic BID EUGENE Administration Pantoprazole Sodium 40 mg 01/19/19 22:30 01/22/19 09:20 Protonix - PO 40 mg BID EUGENE Administration Senna 2 tab 01/20/19 22:00 01/21/19 21:48 Senna - PO 2 tab HS EUGENE Administration Spironolactone 25 mg 01/20/19 10:00 01/22/19 09:20 Aldactone - PO Not Given DAILY EUGENE Tamsulosin HCl 0.4 mg 01/20/19 08:30 01/22/19 09:20 Flomax - PO 0.4 mg DAILY@0830 EUGENE Administration Laboratory Results - last 24 hr 01/19/19 01/21/19 01/21/19 17:41 06:30 12:00 WBC RBC Hgb Hct MCV MCH MCHC RDW Plt Count MPV Absolute Neuts (auto) Neutrophils % Lymphocytes % Monocytes % Eosinophils % Basophils % Nucleated RBC % Sodium Potassium Chloride Carbon Dioxide Anion Gap BUN Creatinine Creat Clearance w eGFR POC Glucometer 121 Random Glucose Serum Osmolality 273 L Calcium Total Bilirubin AST ALT Alkaline Phosphatase Total Protein Albumin Blood Type O POSITIVE Antibody Screen Negative Crossmatch See Detail 01/21/19 01/21/19 01/22/19 18:17 20:37 06:13 WBC RBC Hgb Hct MCV MCH MCHC RDW Plt Count MPV Absolute Neuts (auto) Neutrophils % Lymphocytes % Monocytes % Eosinophils % Basophils % Nucleated RBC % Sodium Potassium Chloride Carbon Dioxide Anion Gap BUN Creatinine Creat Clearance w eGFR POC Glucometer 132 120 113 Random Glucose Serum Osmolality Calcium Total Bilirubin AST ALT Alkaline Phosphatase Total Protein Albumin Blood Type Antibody Screen Crossmatch 01/22/19 01/22/19 08:42 08:42 WBC 9.7 RBC 2.95 L Hgb 9.2 L Hct 26.7 L D MCV 90.6 MCH 31.3 MCHC 34.5 RDW 17.0 H Plt Count 233 MPV 8.4 Absolute Neuts (auto) 7.7 Neutrophils % 79.2 Lymphocytes % 5.3 L D Monocytes % 14.1 H Eosinophils % 0.9 Basophils % 0.5 Nucleated RBC % 0 Sodium 132 L Potassium 3.7 Chloride 96 L Carbon Dioxide 28 Anion Gap 8 BUN 17 Creatinine 0.6 Creat Clearance w eGFR 130.30 POC Glucometer Random Glucose 107 H Serum Osmolality Calcium 7.5 L Total Bilirubin 2.2 H AST 44 H ALT 47 Alkaline Phosphatase 143 H Total Protein 5.0 L Albumin 2.0 L Blood Type Antibody Screen Crossmatch S1 S2 Irregular Lungs decreased breath sounds Abd- soft, NT trace edema B/L Right arm-- edema decreased , hematoma less, eccyhmosis less ,not tender PLAN doppler rt arm - negative for DVT CT arm noted-- large hematoma sodium improving- on Spironolactone now Nephrology eval and GI eval noted-- high risk for endoscopic procedures at this time Does not appear to have GI bleeding s/p 2 units yesterday PRBC holding DVT prophylaxis no surgical interventions of left hip as per Orthopedic surgeon from last admission Stool guaic negative pt appears drowsy today, will change Xanax to PRN and dc Dilaudid- give Tramadol instead PT eval Problem List - Problems (1) Acute anemia Code(s): D64.9 - ANEMIA, UNSPECIFIED (2) Hyponatremia syndrome Code(s): E87.1 - HYPO-OSMOLALITY AND HYPONATREMIA (3) Atrial fibrillation Code(s): I48.91 - UNSPECIFIED ATRIAL FIBRILLATION Qualifiers: Atrial fibrillation type: persistent Qualified Code(s): I48.1 - Persistent atrial fibrillation (4) Congestive heart disease Code(s): I50.9 - HEART FAILURE, UNSPECIFIED Qualifiers: Heart failure type: combined systolic and diastolic Heart failure chronicity: acute on chronic Qualified Code(s): I50.43 - Acute on chronic combined systolic (congestive) and diastolic (congestive) heart failure (5) HTN (hypertension) Code(s): I10 - ESSENTIAL (PRIMARY) HYPERTENSION Qualifiers: Hypertension type: essential hypertension Qualified Code(s): I10 - Essential (primary) hypertension (6) IDDM (insulin dependent diabetes mellitus) Code(s): E11.9 - TYPE 2 DIABETES MELLITUS WITHOUT COMPLICATIONS; 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
[2019-01-22] MEDS ORDERED: SODIUM CHLORIDE 1 GM TABLET PO ONE (15:24)
--- NOTE | 2019-01-22 15:24 | PN ---
Progress Note, Physician History of Present Illness: Pt seen and examined at bedside. He is awake and alert. He denies shortness of breath. He says he is not eating as he does not like the food. - Current Medication List Current Medications: Active Medications Alprazolam (Xanax -) 1 mg PO HS PRN PRN Reason: ANXIETY Amiodarone HCl (Cordarone -) 100 mg PO DAILY [facility] Last Admin: 01/22/19 09:20 Dose: 100 mg Atorvastatin Calcium (Lipitor -) 80 mg PO HS [facility] Last Admin: 01/21/19 21:56 Dose: 80 mg Carvedilol (Coreg -) 3.125 mg PO DAILY [facility] Last Admin: 01/22/19 09:18 Dose: Not Given Dicloxacillin Sodium (Dynapen -) 500 mg PO TID [facility] Last Admin: 01/22/19 14:37 Dose: 500 mg Docusate Sodium (Colace -) 100 mg PO TID [facility] Last Admin: 01/22/19 14:37 Dose: 100 mg Escitalopram Oxalate (Lexapro -) 10 mg PO DAILY [facility] Last Admin: 01/22/19 09:22 Dose: 10 mg Hydrocortisone (Anusol 2.5% Hc Cream -) 1 applic TP BID [facility] Last Admin: 01/22/19 09:19 Dose: 1 applic Ceftriaxone Sodium 1 gm/ (Dextrose) 50 mls @ 100 mls/hr IVPB DAILY [facility] Last Admin: 01/22/19 09:19 Dose: 100 mls/hr Insulin Aspart (Novolog Vial Sliding Scale -) 1 vial SQ [facility]; Protocol Last Admin: 01/22/19 12:13 Dose: 2 units Insulin Detemir (Levemir Vial) 10 units SQ [facility] Last Admin: 01/21/19 22:03 Dose: Not Given Lacosamide (Vimpat -) 100 mg PO BID [facility] Last Admin: 01/22/19 09:19 Dose: 100 mg Levothyroxine Sodium 100 mcg/ (Levothyroxine Sodium 75 mcg) 175 mcg PO DAILY@ 0700 [facility] Last Admin: 01/22/19 06:19 Dose: 175 mcg Multi-Ingredient Ointment (Zinc Oxide) 1 applic TP BID [facility] Last Admin: 01/22/19 09:19 Dose: 1 applic Multivitamins/Minerals/Vitamin C (Tab-A-Vit -) 1 tab PO DAILY [facility] Last Admin: 01/22/19 09:21 Dose: 1 tab Nystatin (Mycostatin Cream -) 1 applic TP BID [facility] Last Admin: 01/22/19 09:19 Dose: 1 applic Pantoprazole Sodium (Protonix -) 40 mg PO BID [facility] Last Admin: 01/22/19 09:20 Dose: 40 mg Senna (Senna -) 2 tab PO HS [facility] Last Admin: 01/21/19 21:48 Dose: 2 tab Spironolactone (Aldactone -) 25 mg PO DAILY [facility] Last Admin: 01/22/19 09:20 Dose: Not Given Tamsulosin HCl (Flomax -) 0.4 mg PO DAILY@0830 [facility] Last Admin: 01/22/19 09:20 Dose: 0.4 mg Tramadol HCl (Ultram -) 50 mg PO Q8H PRN PRN Reason: PAIN LEVEL 6-10 - Objective Vital Signs: Vital Signs Temperature 98.5 F 01/22/19 14:59 Pulse Rate 95 H 01/22/19 14:59 Respiratory Rate 18 01/22/19 14:59 Blood Pressure 100/60 01/22/19 14:59 O2 Sat by Pulse Oximetry (%) 98 01/22/19 09:00 Constitutional: Yes: Calm Eyes: Yes: Conjunctiva Clear HENT: Yes: Atraumatic Neck: Yes: Supple Cardiovascular: Yes: S1, S2 Respiratory: Yes: CTA Bilaterally Gastrointestinal: Yes: Soft Genitourinary: Yes: WNL Musculoskeletal: Yes: Muscle Weakness Edema: Yes Edema: LLE: Trace, RLE: Trace Neurological: Yes: Oriented Psychiatric: Yes: Oriented Labs: CBC, BMP 01/22/19 08:42 01/22/19 08:42 INR, PTT INR 1.18 (0.83-1.09) H 01/20/19 08:44 Problem List - Problems (1) Anemia Code(s): D64.9 - ANEMIA, UNSPECIFIED Qualifiers: Anemia type: unspecified type Qualified Code(s): D64.9 - Anemia, unspecified (2) Hyponatremia syndrome Code(s): E87.1 - HYPO-OSMOLALITY AND HYPONATREMIA (3) Atrial fibrillation Code(s): I48.91 - UNSPECIFIED ATRIAL FIBRILLATION Qualifiers: Atrial fibrillation type: persistent Qualified Code(s): I48.1 - Persistent atrial fibrillation (4) Congestive heart disease Code(s): I50.9 - HEART FAILURE, UNSPECIFIED Qualifiers: Heart failure type: combined systolic and diastolic Heart failure chronicity: acute on chronic Qualified Code(s): I50.43 - Acute on chronic combined systolic (congestive) and diastolic (congestive) heart failure Assessment/Plan Current Medications Generic Name Dose Route Start Last Admin Trade Name Freq PRN Reason Stop Dose Admin Alprazolam 1 mg 01/22/19 11:43 Xanax - PO HS PRN ANXIETY Amiodarone HCl 100 mg 01/20/19 10:00 01/22/19 09:20 Cordarone - PO 100 mg DAILY [facility] Administration Atorvastatin Calcium 80 mg 01/20/19 22:00 01/21/19 21:56 Lipitor - PO 80 mg HS [facility] Administration Carvedilol 3.125 mg 01/20/19 10:00 01/22/19 09:18 Coreg - PO Not Given DAILY [facility] Dicloxacillin Sodium 500 mg 01/19/19 22:15 01/22/19 14:37 Dynapen - PO 500 mg TID [facility] Administration Docusate Sodium 100 mg 01/19/19 22:15 01/22/19 14:37 Colace - PO 100 mg TID [facility] Administration Escitalopram Oxalate 10 mg 01/20/19 10:00 01/22/19 09:22 Lexapro - PO 10 mg DAILY [facility] Administration Hydrocortisone 1 applic 01/20/19 10:30 01/22/19 09:19 Anusol 2.5% Hc Cream - TP 1 applic BID [facility] Administration Ceftriaxone Sodium 1 gm/ 50 mls @ 100 mls/hr 01/21/19 10:00 01/22/19 09:19 Dextrose IVPB 100 mls/hr DAILY [facility] Administration Insulin Aspart 1 vial 01/20/19 07:00 01/22/19 12:13 Novolog Vial Sliding Scale - SQ 2 units ACHS [facility] Administration Protocol Insulin Detemir 10 units 01/20/19 22:00 01/21/19 22:03 Levemir Vial SQ Not Given HS [facility] Lacosamide 100 mg 01/19/19 23:45 01/22/19 09:19 Vimpat - PO 100 mg BID [facility] Administration Levothyroxine Sodium 100 mcg/ 175 mcg 01/20/19 07:00 01/22/19 06:19 Levothyroxine Sodium 75 mcg PO 175 mcg DAILY@0700 [facility] Administration Multi-Ingredient Ointment 1 applic 01/20/19 10:30 01/22/19 09:19 Zinc Oxide TP 1 applic BID [facility] Administration Multivitamins/Minerals/Vitamin C 1 tab 01/20/19 10:00 01/22/19 09:21 Tab-A-Vit - PO 1 tab DAILY [facility] Administration Nystatin 1 applic 01/20/19 10:30 01/22/19 09:19 Mycostatin Cream - TP 1 applic BID [facility] Administration Pantoprazole Sodium 40 mg 01/19/19 22:30 01/22/19 09:20 Protonix - PO 40 mg BID [facility] Administration Senna 2 tab 01/20/19 22:00 01/21/19 21:48 Senna - PO 2 tab HS [facility] Administration Spironolactone 25 mg 01/20/19 10:00 01/22/19 09:20 Aldactone - PO Not Given DAILY [facility] Tamsulosin HCl 0.4 mg 01/20/19 08:30 01/22/19 09:20 Flomax - PO 0.4 mg DAILY@0830 [facility] Administration Tramadol HCl 50 mg 01/22/19 11:43 Ultram - PO Q8H PRN PAIN LEVEL 6-10 Laboratory Tests 01/21/19 06:30 Cortisol AM Sample Pending Impression 1. hyponatremia 2. chf 3. anemia 4. cad 5. dm 6. a-fib 7. htn Plan - hold aldactone - give another salt tab - bolus saline of bp is low - follow cortisol level - encourage PO intake
[2019-01-22] MEDS: SENNOSIDES 8.6MG TABLET (FP) PO SCH (22:47)
[2019-01-22] MEDS: ATORVASTATIN CA 80 MG TABLET (FP) PO SCH (22:49)
[2019-01-22] MEDS: INSULIN (LEVEMIR) 100 UNITS/ML UNITS SQ SCH (22:55)
[2019-01-23] MEDS: traMADol HCL 50 MG TABLET PO PRN ×2 (02:00→23:17)
[2019-01-23] MEDS: ALPRAZolam 0.25 MG TABLET PO PRN ×2 (02:00→23:05)
[2019-01-23 04:02] LABS: EPI CELLS 4.6 /HPF (0-5); HYALINE CASTS 6 /hpf (0-8); PH,URINE 5.5 (5.0-8.0); URINE APPEARANCE CLEAR; URINE BACTERIA 3.204 /hpf (NEGATIVE); URINE BILIRUBIN 1+ (<2.0 mg/dL); URINE COLOR DK YELLOW; URINE GLUCOSE (UA) TRACE (NEGATIVE); URINE KETONE NEGATIVE (NEGATIVE); URINE LEUK ESTERASE 2+ (NEGATIVE); URINE NITRITE NEGATIVE (NEGATIVE); URINE PROTEIN 1+ (NEGATIVE); URINE RBC 2 /hpf (0-4); URINE WBC 31 /hpf (0-5)
[2019-01-23] MEDS ORDERED: LEVOTHYROXINE NA 75 MCG TABLET (FP) ONE (05:55)
[2019-01-23] MEDS ORDERED: LEVOTHYROXINE NA 100 MCG TABLET (FP) ONE (05:55)
[2019-01-23] MEDS ORDERED: PT OWN MED DRAWER 7, Y5N ONE ×2 (05:56→14:41)
[2019-01-23] MEDS: DOCUSATE SODIUM 100 MG CAPSULE (FP) PO SCH ×3 (06:28→23:05)
[2019-01-23] MEDS: LEVOTHYROXINE 100 MCG, LEVOTHYROXINE 75 MCG PO SCH (06:29)
[2019-01-23] MEDS: DICLOXACILLIN SODIUM 250 MG CAPSULE PO SCH ×3 (06:36→23:06)
[2019-01-23] MEDS: INSULIN SLIDING SCALE (NOVOLOG) 1 VIAL SQ SCH ×4 (06:36→23:06)
[2019-01-23 07:38] LABS: HEMOGLOBIN 9.6 GM/dL (11.7-16.9); MCH 32.6 pg (25.7-33.7); MCHC 35.4 g/dl (32.0-35.9); MEAN PLT VOLUME 7.9 fl (7.5-11.1); PLATELET COUNT 209 K/MM3 (134-434); RBC 2.94 M/mm3 (4.00-5.60); RDW 17.2 % (11.9-15.9)
[2019-01-23 08:23] LABS: ALBUMIN 1.9 g/dl (3.4-5.0); ALK PHOS 158 U/L (45-117); ANION GAP 7 MMOL/L (8-16); BILIRUBIN,TOTAL 1.7 mg/dL (0.2-1); BLOOD UREA NITROGEN 16 mg/dL (7-18); CALCIUM 7.6 mg/dL (8.5-10.1); CHLORIDE 98 mmol/L (98-107); CO2 27 mmol/L (21-32); CREATININE 0.6 mg/dL (0.55-1.3); GLUCOSE,RANDOM 98 mg/dL (74-106); POTASSIUM 3.7 mmol/L (3.5-5.1); SGOT/AST 66 U/L (15-37); SGPT/ALT 71 U/L (13-61); SODIUM 132 mmol/L (136-145); TOT PROT 4.9 g/dl (6.4-8.2)
[2019-01-23] MEDS ORDERED: cefTRIAXone SODIUM 1 GM VIAL ONE (09:42)
[2019-01-23] MEDS ORDERED: DEXTROSE 5%-WATER - 50 ML IVPB ONE (09:43)
[2019-01-23] MEDS: PANTOPRAZOLE 40 MG TABLET (FP) PO SCH ×2 (09:46→23:05)
[2019-01-23] MEDS: CARVEDILOL 3.125 MG TABLET (FP) PO SCH (09:46)
[2019-01-23] MEDS: TAMSULOSIN HCL 0.4 MG CAP PO SCH (09:46)
[2019-01-23] MEDS: MULTIVITAMINS (DAILY MVI) TABLET (FP) PO SCH (09:46)
[2019-01-23] MEDS: AMIODARONE HCL 200 MG TABLET (FP) PO SCH (09:46)
[2019-01-23] MEDS: CEFTRIAXONE 1 GM in DEXTROSE 5%-WATER - 50 ML IVPB SCH (09:46)
[2019-01-23] MEDS: LACOSAMIDE 50 MG TABLET PO SCH ×2 (09:47→23:05)
[2019-01-23] MEDS: SPIRONOLACTONE 25 MG TABLET (FP) PO SCH (09:47)
[2019-01-23] MEDS: ESCITALOPRAM OXALATE 10 MG TABLET (FP) PO SCH (09:47)
[2019-01-23] MEDS: ZINC OXIDE 20% TOPICAL OINTMENT 30 GM TUBE TP SCH ×2 (09:49→23:07)
[2019-01-23] MEDS: NYSTATIN 100,000 UNIT/GM TOPICAL CREAM 15 GM TUBE TP SCH ×2 (09:49→23:07)
[2019-01-23] MEDS: HYDROCORTISONE 2.5% TOPICAL CREAM 30 GM TUBE TP SCH ×2 (09:49→23:07)
--- NOTE | 2019-01-23 10:12 | PN ---
Progress Note (short form) - Note Progress Note: pt seen/ examined chart reviewed awake/ comfortable c/c constipation Vital Signs Temp 98.4 F 01/23/19 06:18 Pulse 86 01/23/19 06:18 Resp 20 01/23/19 06:18 BP 93/46 L 01/23/19 06:18 Pulse Ox 98 01/22/19 09:00 Intake & Output 01/22/19 01/22/19 01/23/19 11:59 23:59 11:59 Intake Total 650 1070 200 Output Total 300 400 Balance 350 670 200 Intake: IV 0 s/l 0 IVPB 50 Oral 650 1020 200 Output: Urine 300 400 Void 300 400 Other: Voiding Method Urinal Urinal Weight Measurement Method Built in [facility] Active Medications Alprazolam (Xanax -) 1 mg PO HS PRN PRN Reason: ANXIETY Last Admin: 01/23/19 02:00 Dose: 1 mg Amiodarone HCl (Cordarone -) 100 mg PO DAILY [facility] Last Admin: 01/23/19 09:46 Dose: 100 mg Atorvastatin Calcium (Lipitor -) 80 mg PO HS [facility] Last Admin: 01/22/19 22:49 Dose: 80 mg Carvedilol (Coreg -) 3.125 mg PO DAILY [facility] Last Admin: 01/23/19 09:46 Dose: 3.125 mg Dicloxacillin Sodium (Dynapen -) 500 mg PO TID [facility] Last Admin: 01/23/19 06:36 Dose: 500 mg Docusate Sodium (Colace -) 100 mg PO TID [facility] Last Admin: 01/23/19 06:28 Dose: 100 mg Escitalopram Oxalate (Lexapro -) 10 mg PO DAILY [facility] Last Admin: 01/23/19 09:47 Dose: 10 mg Hydrocortisone (Anusol 2.5% Hc Cream -) 1 applic TP BID [facility] Last Admin: 01/23/19 09:49 Dose: 1 applic Ceftriaxone Sodium 1 gm/ (Dextrose) 50 mls @ 100 mls/hr IVPB DAILY [facility] Last Admin: 01/23/19 09:46 Dose: 100 mls/hr Insulin Aspart (Novolog Vial Sliding Scale -) 1 vial SQ [facility]; Protocol Last Admin: 01/23/19 06:36 Dose: Not Given Insulin Detemir (Levemir Vial) 10 units SQ [facility] Last Admin: 01/22/19 22:55 Dose: 10 units Lacosamide (Vimpat -) 100 mg PO BID [facility] Last Admin: 01/23/19 09:47 Dose: 100 mg Levothyroxine Sodium 100 mcg/ (Levothyroxine Sodium 75 mcg) 175 mcg PO DAILY@ 0700 [facility] Last Admin: 01/23/19 06:29 Dose: 175 mcg Multi-Ingredient Ointment (Zinc Oxide) 1 applic TP BID [facility] Last Admin: 01/23/19 09:49 Dose: 1 applic Multivitamins/Minerals/Vitamin C (Tab-A-Vit -) 1 tab PO DAILY [facility] Last Admin: 01/23/19 09:46 Dose: 1 tab Nystatin (Mycostatin Cream -) 1 applic TP BID [facility] Last Admin: 01/23/19 09:49 Dose: 1 applic Pantoprazole Sodium (Protonix -) 40 mg PO BID [facility] Last Admin: 01/23/19 09:46 Dose: 40 mg Polyethylene Glycol (Miralax (For Daily Use) -) 17 gm PO DAILY [facility] Senna (Senna -) 2 tab PO HS [facility] Last Admin: 01/22/19 22:47 Dose: Not Given Spironolactone (Aldactone -) 25 mg PO DAILY [facility] Last Admin: 01/23/19 09:47 Dose: 25 mg Tamsulosin HCl (Flomax -) 0.4 mg PO DAILY@0830 [facility] Last Admin: 01/23/19 09:46 Dose: 0.4 mg Tramadol HCl (Ultram -) 50 mg PO Q8H PRN PRN Reason: PAIN LEVEL 6-10 Last Admin: 01/23/19 02:00 Dose: 50 mg CBC, BMP 01/23/19 06:30 01/23/19 06:30 Microbiology 01/19/19 23:45 Urine Culture - Final Urine - Urine Clean Catch Klebsiella Pneumoniae Hepatic Panel Total Bilirubin 1.7 mg/dL (0.2-1) H 01/23/19 06:30 AST 66 U/L (15-37) H 01/23/19 06:30 ALT 71 U/L (13-61) H 01/23/19 06:30 Alkaline Phosphatase 158 U/L (45-117) H 01/23/19 06:30 Albumin 1.9 g/dl (3.4-5.0) L 01/23/19 06:30 Abnormal Lab Results 01/19/19 01/22/19 01/23/19 17:41 08:42 02:40 RBC Hgb Hct RDW Sodium 132 L Chloride 96 L Anion Gap Random Glucose 107 H Calcium 7.5 L Total Bilirubin 2.2 H AST 44 H ALT Alkaline Phosphatase 143 H Total Protein 5.0 L Albumin 2.0 L Urine Bilirubin 1+ H Crossmatch See Detail 01/23/19 01/23/19 06:30 06:30 RBC 2.94 L Hgb 9.6 L Hct 27.0 L RDW 17.2 H Sodium 132 L Chloride Anion Gap 7 L Random Glucose Calcium 7.6 L Total Bilirubin 1.7 H AST 66 H ALT 71 H Alkaline Phosphatase 158 H Total Protein 4.9 L Albumin 1.9 L Urine Bilirubin Crossmatch Physical Exam . S1 S2 Irregular Lungs decreased breath sounds Abd- soft, NT trace edema B/L Right arm-- edema decreased , hematoma less, eccyhmosis less ,not tender. Neuro- alert/awake. a/p clinically stable continue present care On abx for uti -- rocephin Doxy for chronic osteo will consult i/d also physical therapy will ask cardiology to follow for low Ef-- ppm ? Add Miralax will follow discussed with nursing staff and onsite case manager also
[2019-01-23] MEDS: POLYETHYLENE GLYCOL 3350 119 GM BTL PO SCH (11:17)
--- NOTE | 2019-01-23 11:49 | CON.ID ---
Consult Consult Specialty:: infectious diseases Referred by:: Reason for Consultation:: uti,urinary retention - History of Present Illness History of Present Illness: 78 year old M with hx CAD s/p 4V CABG, pafib, htn, hld, systolic CHF, hypothyroidism, DMII, Chronic osteomyelitis, and parietal meningioma (s/p resection 2001) transferred from [facility] to [facility] for evaluation of acute anemia (hgb 5.9). 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, Other (meningioma) Cardio/Vascular: Yes: AFIB, CAD (s/p CABG), CHF, Deep Vein Thrombosis, HTN, Hyperlipdemia Pulmonary: Yes: Pulmonary Embolus Renal/: Yes: BPH Psych: Yes: Anxiety Musculoskeletal: Yes: Chronic low back pain, Osteoarthritis Endocrine: Yes: Diabetes Mellitus, Hypothyroidism - Past Surgical History Past Surgical History: Yes: Appendectomy, CABG - Alcohol/Substance Use Hx Alcohol Use: No History of Substance Use: reports: None - Smoking History Smoking history: Former smoker Have you smoked in the past 12 months: No If you are a former smoker, when did you quit?: 40YRS AGO - Social History Usual Living Arrangement: Other ([facility]) ADL: Support Services History of Recent Travel: No Home Medications - Allergies Allergies/Adverse Reactions: Allergies Allergy/AdvReac Type Severity Reaction Status Date / Time No Known Drug Allergies Allergy Verified 01/19/19 16:53 strawberry Allergy Hives Verified 01/19/19 20:53 - Home Medications Home Medications: Ambulatory Orders Alprazolam [Xanax] 1 mg PO HS 01/19/19 Amiodarone HCl 100 mg PO DAILY 01/19/19 Atorvastatin Ca [Lipitor] 80 mg PO HS 01/19/19 Carvedilol [Coreg -] 3.125 mg PO DAILY 01/19/19 Dicloxacillin Sodium [Dynapen -] 500 mg PO Q8H 01/19/19 Docusate Sodium [Colace -] 100 mg PO TID 01/19/19 Enoxaparin [Lovenox -] 80 mg SQ Q12H 01/19/19 Escitalopram Oxalate [Lexapro -] 10 mg PO DAILY 01/19/19 Furosemide [Lasix -] 40 mg PO BID 01/19/19 HYDROmorphone [Dilaudid -] 2 mg PO Q3H PRN 01/19/19 HYDROmorphone [Dilaudid -] 4 mg PO Q3H PRN 01/19/19 Insulin Glargine,Hum.rec.anlog [Lantus Solostar] 10 unit SQ HS 01/19/19 Insulin Lispro [Humalog] 100 unit SQ BID 01/19/19 Lacosamide [Vimpat] 100 mg PO Q12H 01/19/19 Levothyroxine [Synthroid -] 175 mcg PO DAILY 01/19/19 Multivitamin [Multiple Vitamins] 1 each PO DAILY 01/19/19 Pantoprazole Sodium [Protonix -] 40 mg PO DAILY 01/19/19 Sennosides [Senna] 2 tab PO HS 01/19/19 Spironolactone [Aldactone] 25 mg PO DAILY 01/19/19 Tamsulosin HCl [Flomax] 0.4 mg PO DAILY 01/19/19 Family Disease History - Family Disease History Family Disease History: Diabetes: Mother ( ( 70) natural causes), Other : Father ( (80s) aspiration), Mother, Brother ( alive (62) ), Sister ( alive (66) OA) Review of Systems - Review of Systems Constitutional: reports: No Symptoms Eyes: reports: No Symptoms HENT: reports: No Symptoms Neck: reports: No Symptoms Cardiovascular: reports: No Symptoms Respiratory: reports: No Symptoms Gastrointestinal: reports: Constipation Genitourinary: reports: Other (urinary retention) Musculoskeletal: reports: No Symptoms Integumentary: reports: Bruising Neurological: reports: No Symptoms Endocrine: reports: No Symptoms Hematology/Lymphatic: reports: Easily Bruised Psychiatric: reports: No Symptoms Physical Exam Vital Signs: Vital Signs Temperature 98.4 F 01/23/19 06:18 Pulse Rate 86 01/23/19 06:18 Respiratory Rate 20 01/23/19 06:18 Blood Pressure 93/46 L 01/23/19 06:18 O2 Sat by Pulse Oximetry (%) 98 01/22/19 09:00 Constitutional: Yes: No Distress, Calm HENT: Yes: Atraumatic, Normocephalic Neck: Yes: Supple, Trachea Midline Cardiovascular: Yes: Pulse Irregular Respiratory: Yes: Regular, CTA Bilaterally Gastrointestinal: Yes: Normal Bowel Sounds, Soft Musculoskeletal: Yes: Other Extremities: Yes: Other (dried) Integumentary: Yes: Other (dried wounds on b/l legs bruising on body, onchomycosis) Neurological: Yes: Alert, Oriented Psychiatric: Yes: Alert, Oriented Labs: CBC, BMP 01/23/19 06:30 01/23/19 06:30 Imaging - Results Chest X-ray: Report Reviewed, Image Reviewed Cat Scan: Report Reviewed, Image Reviewed Assessment/Plan Problem List - Problems (1) Acute anemia Code(s): D64.9 - ANEMIA, UNSPECIFIED (2) Hyponatremia syndrome Code(s): E87.1 - HYPO-OSMOLALITY AND HYPONATREMIA (3) Prophylactic measure Code(s): Z29.9 - ENCOUNTER FOR PROPHYLACTIC MEASURES, UNSPECIFIED (4) Anxiety Code(s): F41.9 - ANXIETY DISORDER, UNSPECIFIED (5) Atrial fibrillation Code(s): I48.91 - UNSPECIFIED ATRIAL FIBRILLATION Qualifiers: Atrial fibrillation type: persistent Qualified Code(s): I48.1 - Persistent atrial fibrillation (6) CAD (coronary artery disease) Code(s): I25.10 - ATHSCL HEART DISEASE OF [place] CORONARY ARTERY W/O ANG PCTRS Qualifiers: Coronary Disease-Associated Artery/Lesion type: bypass graft [place] vs. 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
--- NOTE | 2019-01-23 13:38 | PN ---
Progress Note, Physician History of Present Illness: Pt seen and examined at bedside. He is awake and alert. [place] was placed for retention. - Current Medication List Current Medications: Active Medications Alprazolam (Xanax -) 1 mg PO HS PRN PRN Reason: ANXIETY Last Admin: 01/23/19 02:00 Dose: 1 mg Amiodarone HCl (Cordarone -) 100 mg PO DAILY REPLACED BY [facility] Last Admin: 01/23/19 09:46 Dose: 100 mg Atorvastatin Calcium (Lipitor -) 80 mg PO HS REPLACED BY [facility] Last Admin: 01/22/19 22:49 Dose: 80 mg Carvedilol (Coreg -) 3.125 mg PO DAILY REPLACED BY [facility] Last Admin: 01/23/19 09:46 Dose: 3.125 mg Dicloxacillin Sodium (Dynapen -) 500 mg PO TID REPLACED BY [facility] Last Admin: 01/23/19 06:36 Dose: 500 mg Docusate Sodium (Colace -) 100 mg PO TID REPLACED BY [facility] Last Admin: 01/23/19 06:28 Dose: 100 mg Escitalopram Oxalate (Lexapro -) 10 mg PO DAILY REPLACED BY [facility] Last Admin: 01/23/19 09:47 Dose: 10 mg Hydrocortisone (Anusol 2.5% Hc Cream -) 1 applic TP BID REPLACED BY [facility] Last Admin: 01/23/19 09:49 Dose: 1 applic Ceftriaxone Sodium 1 gm/ (Dextrose) 50 mls @ 100 mls/hr IVPB DAILY REPLACED BY [facility] Last Admin: 01/23/19 09:46 Dose: 100 mls/hr Insulin Aspart (Novolog Vial Sliding Scale -) 1 vial SQ [facility] REPLACED BY [facility]; Protocol Last Admin: 01/23/19 06:36 Dose: Not Given Insulin Detemir (Levemir Vial) 10 units [address] [facility] Last Admin: 01/22/19 22:55 Dose: 10 units Lacosamide (Vimpat -) 100 mg PO BID REPLACED BY [facility] Last Admin: 01/23/19 09:47 Dose: 100 mg Levothyroxine Sodium 100 mcg/ (Levothyroxine Sodium 75 mcg) 175 mcg PO DAILY@ 0700 REPLACED BY [facility] Last Admin: 01/23/19 06:29 Dose: 175 mcg Multi-Ingredient Ointment (Zinc Oxide) 1 applic TP BID REPLACED BY [facility] Last Admin: 01/23/19 09:49 Dose: 1 applic Multivitamins/Minerals/Vitamin C (Tab-A-Vit -) 1 tab PO DAILY REPLACED BY [facility] Last Admin: 01/23/19 09:46 Dose: 1 tab Nystatin (Mycostatin Cream -) 1 applic TP BID REPLACED BY [facility] Last Admin: 01/23/19 09:49 Dose: 1 applic Pantoprazole Sodium (Protonix -) 40 mg PO BID REPLACED BY [facility] Last Admin: 01/23/19 09:46 Dose: 40 mg Polyethylene Glycol (Miralax (For Daily Use) -) 17 gm PO DAILY REPLACED BY [facility] Last Admin: 01/23/19 11:17 Dose: 17 gm Senna (Senna -) 2 tab PO HS REPLACED BY [facility] Last Admin: 01/22/19 22:47 Dose: Not Given Spironolactone (Aldactone -) 25 mg PO DAILY REPLACED BY [facility] Last Admin: 01/23/19 09:47 Dose: 25 mg Tamsulosin HCl (Flomax -) 0.4 mg PO DAILY@0830 REPLACED BY [facility] Last Admin: 01/23/19 09:46 Dose: 0.4 mg Tramadol HCl (Ultram -) 50 mg PO Q8H PRN PRN Reason: PAIN LEVEL 6-10 Last Admin: 01/23/19 02:00 Dose: 50 mg - Objective Vital Signs: Vital Signs Temperature 98.4 F 01/23/19 06:18 Pulse Rate 86 01/23/19 06:18 Respiratory Rate 20 01/23/19 06:18 Blood Pressure 93/46 L 01/23/19 06:18 O2 Sat by Pulse Oximetry (%) 98 01/22/19 09:00 Constitutional: Yes: Calm Eyes: Yes: Conjunctiva Clear HENT: Yes: Atraumatic Neck: Yes: Supple Cardiovascular: Yes: S1, S2 Respiratory: Yes: CTA Bilaterally, On Nasal O2 Gastrointestinal: Yes: Soft Genitourinary: Yes: [place] Present Musculoskeletal: Yes: Muscle Weakness Edema: Yes Edema: LLE: Trace, RLE: Trace Neurological: Yes: Oriented Psychiatric: Yes: Oriented Labs: CBC, BMP 01/23/19 06:30 01/23/19 06:30 INR, PTT INR 1.18 (0.83-1.09) H 01/20/19 08:44 Problem List - Problems (1) Anemia Code(s): D64.9 - ANEMIA, UNSPECIFIED Qualifiers: Anemia type: unspecified type Qualified Code(s): D64.9 - Anemia, unspecified (2) Hyponatremia syndrome Code(s): E87.1 - HYPO-OSMOLALITY AND HYPONATREMIA (3) Atrial fibrillation Code(s): I48.91 - UNSPECIFIED ATRIAL FIBRILLATION Qualifiers: Atrial fibrillation type: persistent Qualified Code(s): I48.1 - Persistent atrial fibrillation (4) Congestive heart disease Code(s): I50.9 - HEART FAILURE, UNSPECIFIED Qualifiers: Heart failure type: combined systolic and diastolic Heart failure chronicity: acute on chronic Qualified Code(s): I50.43 - Acute on chronic combined systolic (congestive) and diastolic (congestive) heart failure Assessment/Plan Current Medications Generic Name Dose Route Start Last Admin Trade Name Freq PRN Reason Stop Dose Admin Alprazolam 1 mg 01/22/19 11:43 01/23/19 02:00 Xanax - PO 1 mg HS PRN Administration ANXIETY Amiodarone HCl 100 mg 01/20/19 10:00 01/23/19 09:46 Cordarone - PO 100 mg DAILY EUGENE Administration Atorvastatin Calcium 80 mg 01/20/19 22:00 01/22/19 22:49 Lipitor - PO 80 mg HS EUGENE Administration Carvedilol 3.125 mg 01/20/19 10:00 01/23/19 09:46 Coreg - PO 3.125 mg DAILY EUGENE Administration Dicloxacillin Sodium 500 mg 01/19/19 22:15 01/23/19 06:36 Dynapen - PO 500 mg TID EUGENE Administration Docusate Sodium 100 mg 01/19/19 22:15 01/23/19 06:28 Colace - PO 100 mg TID EUGENE Administration Escitalopram Oxalate 10 mg 01/20/19 10:00 01/23/19 09:47 Lexapro - PO 10 mg DAILY EUGENE Administration Hydrocortisone 1 applic 01/20/19 10:30 01/23/19 09:49 Anusol 2.5% Hc Cream - TP 1 applic BID EUGENE Administration Ceftriaxone Sodium 1 gm/ 50 mls @ 100 mls/hr 01/21/19 10:00 01/23/19 09:46 Dextrose IVPB 100 mls/hr DAILY EUGENE Administration Insulin Aspart 1 vial 01/20/19 07:00 01/23/19 06:36 Novolog Vial Sliding Scale - SQ Not Given ACHS REPLACED BY [facility] Protocol Insulin Detemir 10 units 01/20/19 22:00 01/22/19 22:55 Levemir Vial SQ 10 units HS EUGENE Administration Lacosamide 100 mg 01/19/19 23:45 01/23/19 09:47 Vimpat - PO 100 mg BID EUGENE Administration Levothyroxine Sodium 100 mcg/ 175 mcg 01/20/19 07:00 01/23/19 06:29 Levothyroxine Sodium 75 mcg PO 175 mcg DAILY@0700 EUGENE Administration Multi-Ingredient Ointment 1 applic 01/20/19 10:30 01/23/19 09:49 Zinc Oxide TP 1 applic BID EUGENE Administration Multivitamins/Minerals/Vitamin C 1 tab 01/20/19 10:00 01/23/19 09:46 Tab-A-Vit - PO 1 tab DAILY EUGENE Administration Nystatin 1 applic 01/20/19 10:30 01/23/19 09:49 Mycostatin Cream - TP 1 applic BID EUGENE Administration Pantoprazole Sodium 40 mg 01/19/19 22:30 01/23/19 09:46 Protonix - PO 40 mg BID EUGENE Administration Polyethylene Glycol 17 gm 01/23/19 10:30 01/23/19 11:17 Miralax (For Daily Use) - PO 17 gm DAILY EUGENE Administration Senna 2 tab 01/20/19 22:00 01/22/19 22:47 Senna - PO Not Given HS REPLACED BY [facility] Spironolactone 25 mg 01/20/19 10:00 01/23/19 09:47 Aldactone - PO 25 mg DAILY EUGENE Administration Tamsulosin HCl 0.4 mg 01/20/19 08:30 01/23/19 09:46 Flomax - PO 0.4 mg DAILY@0830 EUGENE Administration Tramadol HCl 50 mg 01/22/19 11:43 01/23/19 02:00 Ultram - PO 50 mg Q8H PRN Administration PAIN LEVEL 6-10 Laboratory Tests 01/21/19 06:30 Cortisol AM Sample 18.0 Impression 1. hyponatremia 2. chf 3. anemia 4. cad 5. dm 6. a-fib 7. htn Plan - hold aldactone tomorrow - monitor madrid output - monitor bp - encourage PO intake
[2019-01-23] MEDS ORDERED: SODIUM CHLORIDE 1 GM TABLET PO ONE (14:00)
--- NOTE | 2019-01-23 20:29 | CONS ---
DATE OF CONSULTATION: 01/23/2019 TIME OF CONSULTATION: 7:20 p.m. REQUESTING PHYSICIAN: Dr. Shanna Todd Cardiology consultation HISTORY: The patient is a 78-year-old gentleman with a known case of coronary artery disease, status post CABG in the , severe left ventricular systolic dysfunction with severe regional wall motion abnormalities, and severely reduced left ventricular ejection fraction. He also has a history of mitral valve prolapse with moderate mitral regurgitation, moderate tricuspid regurgitation, pulmonary hypertension, history of atrial fibrillation, hypertension, hypertensive cardiovascular disease, [id number] diabetes mellitus, dyslipidemia, history of hypothyroidism, chronic bilateral lymphedema. The patient was transferred from [facility] because of severe anemia. He was at [facility] in December when he fell and fractured his left greater trochanter, which was treated conservatively. On questioning, he denies having chest pain or discomfort. No dyspnea, paroxysmal or nocturnal dyspnea, or orthopnea has been reported. Denies having palpitations, lightheadedness, dizziness, presyncope, syncope. The patient currently is confined to his bed. He apparently developed a large hematoma involving his right upper extremity and states that he is unable to move his fingers and has difficulty in moving his arm. He states while he was at [facility] he was diagnosed to have blood clots in his lower extremities and in his lung. PAST MEDICAL HISTORY: As mentioned in the history of present illness. 1. History of osteomyelitis involving the left lower extremity related to an accident. 2. History of anxiety disorder as recorded in the chart. SOCIAL HISTORY: . Retired from working at . Has one daughter who is healthy. He smoked from the age of [age]. Used to smoke 2 packs of cigarettes per day and drank heavily. No history of drug use. FAMILY HISTORY: Father in his 80s apparently due to aspiration while he was in the hospital. Mother in her 70s related to a myocardial infarction. He has 1 brother and 1 sister. The brother had prostatic cancer, and the sister has had bilateral knee replacement. ALLERGIES: None reported. CURRENT MEDICATIONS: As follows: 1. Flomax 0.4 mg p.o. daily. 2. Amiodarone 100 mg p.o. daily. 3. Ceftriaxone 1 g IV daily. 4. Vimpat 100 mg p.o. b.i.d. 5. Lexapro 10 mg p.o. daily. 6. Xanax 1 mg p.o. nightly p.r.n. 7. Carvedilol 3.125 mg p.o. daily. 8. Colace 100 mg p.o. t.i.d. 9. Hydrocortisone Anusol cream applied t.i.d. 10. MiraLAX 17 g p.o. daily. 11. Senna 2 tablets p.o. daily. 12. Atorvastatin 18 mg p.o. daily. 13. Insulin 10 units subcutaneous nightly. 14. Multivitamin 1 p.o. daily. 15. Ultram 50 mg q.8 hours p.r.n. for pain. 16. Dynapen 500 mg p.o. t.i.d. 17. Nystatin cream application b.i.d. 18. Zinc oxide application b.i.d. 19. Pantoprazole 40 mg p.o. b.i.d. 20. Levothyroxine 175 mcg p.o. daily. REVIEW OF SYSTEMS: Constitutional: No history of chills, fever, or night sweats reported. History of weight loss. HEENT: Denies having headaches, diplopia, blurred vision. No history of epistaxis, hoarseness, tinnitus, or deafness. Cardiovascular: See history of present illness. Respiratory: Denies having cough, expectoration, or hemoptysis. Gastrointestinal: No history of nausea, vomiting, melena, or hematemesis reported. No history of tarry stools. No history of hematochezia. Musculoskeletal: Unable to move his right upper extremity. Has difficulty in moving his lower extremities. No history of myalgias reported. Endocrine: History of diabetes mellitus. No history of polyuria or polydipsia. No history of intolerance to cold or warm weather. Neurologic: History of anxiety. No history of seizures or syncope. Denies having a cerebrovascular event. See history of present illness. Genitourinary: History of BPH. Currently the patient has a Alvarez catheter. Hematologic: See history of present illness. PHYSICAL EXAMINATION: General: A 78-year-old gentleman who was in no acute distress. There is pallor. There is no cyanosis. There is no clubbing. Cannot evaluate jaundice. Neck: Supple. No jugular venous distention. Carotids are equal. Upstrokes are normal. Hepatojugular reflux is negative. Unable to appreciate any bruits. Heart: PMI is in the 5th intercostal space. No heaves or thrills are present. Heart sounds are distant. There is a grade 1/6 decrescendo systolic murmur along the left sternal border and apex. No diastolic murmur or gallops are heard. Lungs: Decreased breath sounds at both bases but clear. Abdomen: Soft, nontender. No hepatosplenomegaly or palpable masses are felt. Extremities: There is ecchymosis and swelling of the right forearm. There is a firm mass felt in the right upper portion of the arm, and movement is restricted. He is unable to flex his fingers. There are chronic stasis changes involving both lower extremities. Dorsalis pedis and posterior tibial pulses cannot be palpated. Femoral pulses are 1 to 2+. LABORATORY DATA: As follows, January 23, 2019 WBC count 9000, hemoglobin 9.6 g, hematocrit 27%, platelet count 209,000. Chemistry on January 23, 2019, sodium 132, potassium 3.7, chloride 98, CO2 is 27 mmol/L, BUN 16, creatinine 0.6 mg/dL. Calcium 7.6 mg/dL, bilirubin elevated at 1.7 mg/dL. AST 66 elevated and ALT 71 elevated. Alkaline phosphatase 158. Total protein 7.9, albumin 1.9 g/dL. ECG was reported as atrial fibrillation with premature ventricular or aberrantly conducted complexed, left axis deviation, nonspecific intraventricular conduction block inferior block. Abnormal ECG. X-ray chest dated January 19 was reported as slight improvement right hemithorax. There was a large heart and sclerotic nob. There was right pleural effusion. Left lung is clear. CT scan of the left upper extremity was reported as follows: 1. Large intramuscular hematoma within the triceps musculature of the right upper extremity. 2. 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 3. No evidence of fracture or acute bony abnormalities. 4. Right pleural effusion and left lobe atelectasis. 5. Edematous changes within the subcutaneous tissue of the right upper extremity as well as the chest and abdomen. Please see above discussion. IMPRESSION: 1. Coronary artery disease, status post coronary artery bypass grafting, stable angina pectoris. 2. Severe left ventricular systolic function with regional wall motion abnormalities and severe reduction of left ventricular ejection fraction (see echocardiogram report from December). 3. Atrial fibrillation. 4. Ventricular premature beats. 5. History of anemia most likely related to significant bleeding involving the right upper extremity. 6. History of congestive heart failure. 7. Hypothyroidism on replacement therapy. 8. Pleural effusion probably related to congestive heart failure. 9. Neurologic deficit involving the right upper extremity, etiology most probably related to nerve compression due to hematoma, possibility of cerebrovascular accident needs to be excluded. RECOMMENDATION: 1. Amiodarone level. 2. Thyroid function tests. 3. Possible neurological evaluation. 4. BNP. 5. Follow up chest x-ray. 6. Follow up basic metabolic profile, T3, T4, TSH. Prognosis guarded. Thank you for your referral. YSABEL JACKSON M.D. [id number]
[2019-01-23] MEDS: SENNOSIDES 8.6MG TABLET (FP) PO SCH (23:05)
[2019-01-23] MEDS: ATORVASTATIN CA 80 MG TABLET (FP) PO SCH (23:06)
[2019-01-23] MEDS: INSULIN (LEVEMIR) 100 UNITS/ML UNITS SQ SCH (23:07)
[2019-01-24] MEDS ORDERED: LEVOTHYROXINE NA 100 MCG TABLET (FP) ONE (05:41)
[2019-01-24] MEDS ORDERED: LEVOTHYROXINE NA 75 MCG TABLET (FP) ONE (05:42)
[2019-01-24] MEDS: DICLOXACILLIN SODIUM 250 MG CAPSULE PO SCH ×3 (06:09→21:51)
[2019-01-24] MEDS: LEVOTHYROXINE 100 MCG, LEVOTHYROXINE 75 MCG PO SCH (06:09)
[2019-01-24] MEDS: DOCUSATE SODIUM 100 MG CAPSULE (FP) PO SCH ×3 (06:09→21:50)
[2019-01-24] MEDS: INSULIN SLIDING SCALE (NOVOLOG) 1 VIAL SQ SCH ×4 (06:18→21:58)
[2019-01-24 08:24] LABS: ANION GAP 6 MMOL/L (8-16); BLOOD UREA NITROGEN 17 mg/dL (7-18); CALCIUM 7.7 mg/dL (8.5-10.1); CHLORIDE 99 mmol/L (98-107); CO2 27 mmol/L (21-32); CREATININE 0.5 mg/dL (0.55-1.3); GLUCOSE,RANDOM 85 mg/dL (74-106); POTASSIUM 3.9 mmol/L (3.5-5.1); SODIUM 132 mmol/L (136-145)
[2019-01-24] MEDS ORDERED: cefTRIAXone SODIUM 1 GM VIAL ONE (09:29)
[2019-01-24] MEDS ORDERED: PT OWN MED DRAWER 7, Y5N ONE (09:29)
[2019-01-24] MEDS ORDERED: DEXTROSE 5%-WATER - 50 ML IVPB ONE (09:30)
[2019-01-24] MEDS: AMIODARONE HCL 200 MG TABLET (FP) PO SCH (09:45)
[2019-01-24] MEDS: PANTOPRAZOLE 40 MG TABLET (FP) PO SCH ×2 (09:45→21:51)
[2019-01-24] MEDS: TAMSULOSIN HCL 0.4 MG CAP PO SCH (09:45)
[2019-01-24] MEDS: LACOSAMIDE 50 MG TABLET PO SCH ×2 (09:45→21:50)
[2019-01-24] MEDS: CARVEDILOL 3.125 MG TABLET (FP) PO SCH (09:45)
[2019-01-24] MEDS: ESCITALOPRAM OXALATE 10 MG TABLET (FP) PO SCH (09:45)
[2019-01-24] MEDS: MULTIVITAMINS (DAILY MVI) TABLET (FP) PO SCH (09:46)
[2019-01-24] MEDS: CEFTRIAXONE 1 GM in DEXTROSE 5%-WATER - 50 ML IVPB SCH (09:46)
[2019-01-24] MEDS: HYDROCORTISONE 2.5% TOPICAL CREAM 30 GM TUBE TP SCH ×2 (09:46→21:52)
[2019-01-24] MEDS: ZINC OXIDE 20% TOPICAL OINTMENT 30 GM TUBE TP SCH ×2 (09:50→21:53)
[2019-01-24] MEDS: NYSTATIN 100,000 UNIT/GM TOPICAL CREAM 15 GM TUBE TP SCH ×2 (09:50→21:52)
[2019-01-24] MEDS: POLYETHYLENE GLYCOL 3350 119 GM BTL PO SCH (09:51)
--- NOTE | 2019-01-24 12:39 | PN ---
Progress Note (short form) - Note Progress Note: pt seen/ examined feels ok having bm madrid has to be placed for urinary retention yesterday denies cp. i/d consult noted/ appreciated. cardiology consult pending denies cp/sob/ abd pain Vital Signs Temp 98.4 F 01/24/19 09:33 Pulse 89 01/24/19 09:33 Resp 17 01/24/19 09:33 BP 101/50 L 01/24/19 09:33 Pulse Ox 98 01/24/19 09:50 Intake & Output 01/23/19 01/24/19 01/24/19 23:59 11:59 23:59 Intake Total 1180 260 Output Total 800 Balance 380 260 Weight 186 lb 9 oz Intake: IV 0 s/l 0 Oral 1180 200 Oral Supplement 60 Output: Urine 800 [place] 400 Void 400 Other: Voiding Method Indwelling Catheter Indwelling Catheter Weight Measurement Method Built in [facility] Active Medications Alprazolam (Xanax -) 1 mg PO HS PRN PRN Reason: ANXIETY Last Admin: 01/23/19 23:05 Dose: 1 mg Amiodarone HCl (Cordarone -) 100 mg PO DAILY [facility] Last Admin: 01/24/19 09:45 Dose: 100 mg Atorvastatin Calcium (Lipitor -) 80 mg PO HS [facility] Last Admin: 01/23/19 23:06 Dose: 80 mg Carvedilol (Coreg -) 3.125 mg PO DAILY [facility] Last Admin: 01/24/19 09:45 Dose: 3.125 mg Dicloxacillin Sodium (Dynapen -) 500 mg PO TID [facility] Last Admin: 01/24/19 06:09 Dose: 500 mg Docusate Sodium (Colace -) 100 mg PO TID [facility] Last Admin: 01/24/19 06:09 Dose: 100 mg Dutasteride (Avodart -) 0.5 mg PO DAILY [facility] Escitalopram Oxalate (Lexapro -) 10 mg PO DAILY [facility] Last Admin: 01/24/19 09:45 Dose: 10 mg Hydrocortisone (Anusol 2.5% Hc Cream -) 1 applic TP BID [facility] Last Admin: 01/24/19 09:46 Dose: Not Given Ceftriaxone Sodium 1 gm/ (Dextrose) 50 mls @ 100 mls/hr IVPB DAILY [facility] Last Admin: 01/24/19 09:46 Dose: 100 mls/hr Insulin Aspart (Novolog Vial Sliding Scale -) 1 vial SQ [facility]; Protocol Last Admin: 01/24/19 11:10 Dose: Not Given Insulin Detemir (Levemir Vial) 10 units SQ [facility] Last Admin: 01/23/19 23:07 Dose: 10 units Lacosamide (Vimpat -) 100 mg PO BID [facility] Last Admin: 01/24/19 09:45 Dose: 100 mg Levothyroxine Sodium 100 mcg/ (Levothyroxine Sodium 75 mcg) 175 mcg PO DAILY@ 0700 [facility] Last Admin: 01/24/19 06:09 Dose: 175 mcg Multi-Ingredient Ointment (Zinc Oxide) 1 applic TP BID [facility] Last Admin: 01/24/19 09:50 Dose: 1 applic Multivitamins/Minerals/Vitamin C (Tab-A-Vit -) 1 tab PO DAILY [facility] Last Admin: 01/24/19 09:46 Dose: 1 tab Nystatin (Mycostatin Cream -) 1 applic TP BID [facility] Last Admin: 01/24/19 09:50 Dose: 1 applic Pantoprazole Sodium (Protonix -) 40 mg PO BID [facility] Last Admin: 01/24/19 09:45 Dose: 40 mg Polyethylene Glycol (Miralax (For Daily Use) -) 17 gm PO DAILY [facility] Last Admin: 01/24/19 09:51 Dose: Not Given Senna (Senna -) 2 tab PO [facility] Last Admin: 01/23/19 23:05 Dose: 2 tab Tamsulosin HCl (Flomax -) 0.8 mg PO [facility] Tramadol HCl (Ultram -) 50 mg PO Q8H PRN PRN Reason: PAIN LEVEL 6-10 Last Admin: 01/23/19 23:17 Dose: 50 mg CBC, BMP 01/23/19 06:30 01/24/19 06:40 Physical Exam . S1 S2 Irregular Lungs decreased breath sounds Abd- soft, NT trace edema B/L Right arm-- edema decreased , hematoma less, eccyhmosis less ,not tender. Neuro- alert/awake. madrid + a/p clinically stable continue present care On abx for uti -- rocephin Doxy for chronic osteo physical therapy. cardiology f/u pending . add avodart increase flomax voiding trial -- 1-2 days check psa/ as out pt will follow discussed with nursing staff also . 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
[2019-01-24] MEDS: DUTASTERIDE 0.5 MG CAP (FP) PO SCH (14:25)
--- NOTE | 2019-01-24 14:27 | PN ---
Progress Note, Physician History of Present Illness: Pt seen and examined at bedside. He is awake and alert. He denies shortness of breath. - Current Medication List Current Medications: Active Medications Alprazolam (Xanax -) 1 mg PO HS PRN PRN Reason: ANXIETY Last Admin: 01/23/19 23:05 Dose: 1 mg Amiodarone HCl (Cordarone -) 100 mg PO DAILY [facility] Last Admin: 01/24/19 09:45 Dose: 100 mg Atorvastatin Calcium (Lipitor -) 80 mg PO HS [facility] Last Admin: 01/23/19 23:06 Dose: 80 mg Carvedilol (Coreg -) 3.125 mg PO DAILY [facility] Last Admin: 01/24/19 09:45 Dose: 3.125 mg Dicloxacillin Sodium (Dynapen -) 500 mg PO TID [facility] Last Admin: 01/24/19 06:09 Dose: 500 mg Docusate Sodium (Colace -) 100 mg PO TID [facility] Last Admin: 01/24/19 06:09 Dose: 100 mg Dutasteride (Avodart -) 0.5 mg PO DAILY [facility] Escitalopram Oxalate (Lexapro -) 10 mg PO DAILY [facility] Last Admin: 01/24/19 09:45 Dose: 10 mg Hydrocortisone (Anusol 2.5% Hc Cream -) 1 applic TP BID [facility] Last Admin: 01/24/19 09:46 Dose: Not Given Ceftriaxone Sodium 1 gm/ (Dextrose) 50 mls @ 100 mls/hr IVPB DAILY [facility] Last Admin: 01/24/19 09:46 Dose: 100 mls/hr Insulin Aspart (Novolog Vial Sliding Scale -) 1 vial SQ [facility]; Protocol Last Admin: 01/24/19 11:10 Dose: Not Given Insulin Detemir (Levemir Vial) 10 units SQ [facility] Last Admin: 01/23/19 23:07 Dose: 10 units Lacosamide (Vimpat -) 100 mg PO BID [facility] Last Admin: 01/24/19 09:45 Dose: 100 mg Levothyroxine Sodium 100 mcg/ (Levothyroxine Sodium 75 mcg) 175 mcg PO DAILY@ 0700 [facility] Last Admin: 01/24/19 06:09 Dose: 175 mcg Multi-Ingredient Ointment (Zinc Oxide) 1 applic TP BID [facility] Last Admin: 01/24/19 09:50 Dose: 1 applic Multivitamins/Minerals/Vitamin C (Tab-A-Vit -) 1 tab PO DAILY [facility] Last Admin: 01/24/19 09:46 Dose: 1 tab Nystatin (Mycostatin Cream -) 1 applic TP BID [facility] Last Admin: 01/24/19 09:50 Dose: 1 applic Pantoprazole Sodium (Protonix -) 40 mg PO BID [facility] Last Admin: 01/24/19 09:45 Dose: 40 mg Polyethylene Glycol (Miralax (For Daily Use) -) 17 gm PO DAILY [facility] Last Admin: 01/24/19 09:51 Dose: Not Given Senna (Senna -) 2 tab PO HS [facility] Last Admin: 01/23/19 23:05 Dose: 2 tab Tamsulosin HCl (Flomax -) 0.8 mg PO HS [facility] Tramadol HCl (Ultram -) 50 mg PO Q8H PRN PRN Reason: PAIN LEVEL 6-10 Last Admin: 01/23/19 23:17 Dose: 50 mg - Objective Vital Signs: Vital Signs Temperature 98.5 F 01/24/19 13:26 Pulse Rate 89 01/24/19 13:26 Respiratory Rate 16 01/24/19 13:26 Blood Pressure 97/58 L 01/24/19 13:26 O2 Sat by Pulse Oximetry (%) 98 01/24/19 09:50 Constitutional: Yes: Calm Eyes: Yes: Conjunctiva Clear HENT: Yes: Atraumatic Cardiovascular: Yes: S1, S2 Respiratory: Yes: CTA Bilaterally Gastrointestinal: Yes: Soft Genitourinary: Yes: [place] Present Musculoskeletal: Yes: Muscle Weakness Edema: No Neurological: Yes: Oriented Psychiatric: Yes: Oriented Labs: CBC, BMP 01/23/19 06:30 01/24/19 06:40 INR, PTT INR 1.18 (0.83-1.09) H 01/20/19 08:44 Problem List - Problems (1) Anemia Code(s): D64.9 - ANEMIA, UNSPECIFIED Qualifiers: Anemia type: unspecified type Qualified Code(s): D64.9 - Anemia, unspecified (2) Hyponatremia syndrome Code(s): E87.1 - HYPO-OSMOLALITY AND HYPONATREMIA (3) Atrial fibrillation Code(s): I48.91 - UNSPECIFIED ATRIAL FIBRILLATION Qualifiers: Atrial fibrillation type: persistent Qualified Code(s): I48.1 - Persistent atrial fibrillation (4) Congestive heart disease Code(s): I50.9 - HEART FAILURE, UNSPECIFIED Qualifiers: Heart failure type: combined systolic and diastolic Heart failure chronicity: acute on chronic Qualified Code(s): I50.43 - Acute on chronic combined systolic (congestive) and diastolic (congestive) heart failure Assessment/Plan Current Medications Generic Name Dose Route Start Last Admin Trade Name Freq PRN Reason Stop Dose Admin Alprazolam 1 mg 01/22/19 11:43 01/23/19 23:05 Xanax - PO 1 mg HS PRN Administration ANXIETY Amiodarone HCl 100 mg 01/20/19 10:00 01/24/19 09:45 Cordarone - PO 100 mg DAILY [facility] Administration Atorvastatin Calcium 80 mg 01/20/19 22:00 01/23/19 23:06 Lipitor - PO 80 mg HS [facility] Administration Carvedilol 3.125 mg 01/20/19 10:00 01/24/19 09:45 Coreg - PO 3.125 mg DAILY [facility] Administration Dicloxacillin Sodium 500 mg 01/19/19 22:15 01/24/19 06:09 Dynapen - PO 500 mg TID [facility] Administration Docusate Sodium 100 mg 01/19/19 22:15 01/24/19 06:09 Colace - PO 100 mg TID [facility] Administration Dutasteride 0.5 mg 01/24/19 12:45 Avodart - PO DAILY [facility] Escitalopram Oxalate 10 mg 01/20/19 10:00 01/24/19 09:45 Lexapro - PO 10 mg DAILY [facility] Administration Hydrocortisone 1 applic 01/20/19 10:30 01/24/19 09:46 Anusol 2.5% Hc Cream - TP Not Given BID [facility] Ceftriaxone Sodium 1 gm/ 50 mls @ 100 mls/hr 01/21/19 10:00 01/24/19 09:46 Dextrose IVPB 100 mls/hr DAILY [facility] Administration Insulin Aspart 1 vial 01/20/19 07:00 01/24/19 11:10 Novolog Vial Sliding Scale - SQ Not Given ACHS [facility] Protocol Insulin Detemir 10 units 01/20/19 22:00 01/23/19 23:07 Levemir Vial SQ 10 units HS [facility] Administration Lacosamide 100 mg 01/19/19 23:45 01/24/19 09:45 Vimpat - PO 100 mg BID [facility] Administration Levothyroxine Sodium 100 mcg/ 175 mcg 01/20/19 07:00 01/24/19 06:09 Levothyroxine Sodium 75 mcg PO 175 mcg DAILY@0700 [facility] Administration Multi-Ingredient Ointment 1 applic 01/20/19 10:30 01/24/19 09:50 Zinc Oxide TP 1 applic BID [facility] Administration Multivitamins/Minerals/Vitamin C 1 tab 01/20/19 10:00 01/24/19 09:46 Tab-A-Vit - PO 1 tab DAILY [facility] Administration Nystatin 1 applic 01/20/19 10:30 01/24/19 09:50 Mycostatin Cream - TP 1 applic BID [facility] Administration Pantoprazole Sodium 40 mg 01/19/19 22:30 01/24/19 09:45 Protonix - PO 40 mg BID [facility] Administration Polyethylene Glycol 17 gm 01/23/19 10:30 01/24/19 09:51 Miralax (For Daily Use) - PO Not Given DAILY [facility] Senna 2 tab 01/20/19 22:00 01/23/19 23:05 Senna - PO 2 tab HS [facility] Administration Tamsulosin HCl 0.8 mg 01/24/19 22:00 Flomax - PO HS [facility] Tramadol HCl 50 mg 01/22/19 11:43 01/23/19 23:17 Ultram - PO 50 mg Q8H PRN Administration PAIN LEVEL 6-10 Impression 1. hyponatremia 2. chf 3. anemia 4. cad 5. dm 6. a-fib 7. htn Plan - diuretics on hold - monitor sodium - he was on lasix and spironolactone for lower ext edema in the past - monitor volume status - monitor [place] output - monitor bp - encourage PO intake
--- NOTE | 2019-01-24 14:58 | PN ---
Progress Note, Physician History of Present Illness: comfortable improving - Current Medication List Current Medications: Active Medications Alprazolam (Xanax -) 1 mg PO HS PRN PRN Reason: ANXIETY Last Admin: 01/23/19 23:05 Dose: 1 mg Amiodarone HCl (Cordarone -) 100 mg PO DAILY [facility] Last Admin: 01/24/19 09:45 Dose: 100 mg Atorvastatin Calcium (Lipitor -) 80 mg PO HS [facility] Last Admin: 01/23/19 23:06 Dose: 80 mg Carvedilol (Coreg -) 3.125 mg PO DAILY [facility] Last Admin: 01/24/19 09:45 Dose: 3.125 mg Dicloxacillin Sodium (Dynapen -) 500 mg PO TID [facility] Last Admin: 01/24/19 14:25 Dose: 500 mg Docusate Sodium (Colace -) 100 mg PO TID [facility] Last Admin: 01/24/19 14:25 Dose: 100 mg Dutasteride (Avodart -) 0.5 mg PO DAILY [facility] Last Admin: 01/24/19 14:25 Dose: 0.5 mg Escitalopram Oxalate (Lexapro -) 10 mg PO DAILY [facility] Last Admin: 01/24/19 09:45 Dose: 10 mg Hydrocortisone (Anusol 2.5% Hc Cream -) 1 applic TP BID [facility] Last Admin: 01/24/19 09:46 Dose: Not Given Ceftriaxone Sodium 1 gm/ (Dextrose) 50 mls @ 100 mls/hr IVPB DAILY [facility] Last Admin: 01/24/19 09:46 Dose: 100 mls/hr Insulin Aspart (Novolog Vial Sliding Scale -) 1 vial SQ [facility]; Protocol Last Admin: 01/24/19 11:10 Dose: Not Given Insulin Detemir (Levemir Vial) 10 units SQ [facility] Last Admin: 01/23/19 23:07 Dose: 10 units Lacosamide (Vimpat -) 100 mg PO BID [facility] Last Admin: 01/24/19 09:45 Dose: 100 mg Levothyroxine Sodium 100 mcg/ (Levothyroxine Sodium 75 mcg) 175 mcg PO DAILY@ 0700 [facility] Last Admin: 01/24/19 06:09 Dose: 175 mcg Multi-Ingredient Ointment (Zinc Oxide) 1 applic TP BID [facility] Last Admin: 01/24/19 09:50 Dose: 1 applic Multivitamins/Minerals/Vitamin C (Tab-A-Vit -) 1 tab PO DAILY [facility] Last Admin: 01/24/19 09:46 Dose: 1 tab Nystatin (Mycostatin Cream -) 1 applic TP BID [facility] Last Admin: 01/24/19 09:50 Dose: 1 applic Pantoprazole Sodium (Protonix -) 40 mg PO BID [facility] Last Admin: 01/24/19 09:45 Dose: 40 mg Polyethylene Glycol (Miralax (For Daily Use) -) 17 gm PO DAILY [facility] Last Admin: 01/24/19 09:51 Dose: Not Given Senna (Senna -) 2 tab PO HS [facility] Last Admin: 01/23/19 23:05 Dose: 2 tab Sodium Chloride (Sodium Chloride Tablet -) 1 gm PO BID [facility] Stop: 01/24/19 22:01 Tamsulosin HCl (Flomax -) 0.8 mg PO HS [facility] Tramadol HCl (Ultram -) 50 mg PO Q8H PRN PRN Reason: PAIN LEVEL 6-10 Last Admin: 01/23/19 23:17 Dose: 50 mg - Objective Vital Signs: Vital Signs Temperature 98.5 F 01/24/19 13:26 Pulse Rate 89 01/24/19 13:26 Respiratory Rate 16 01/24/19 13:26 Blood Pressure 97/58 L 01/24/19 13:26 O2 Sat by Pulse Oximetry (%) 98 01/24/19 09:50 Constitutional: Yes: No Distress, Calm Cardiovascular: Yes: S1, S2 Respiratory: Yes: Regular, CTA Bilaterally Gastrointestinal: Yes: Normal Bowel Sounds, Soft Musculoskeletal: Yes: WNL Extremities: Yes: WNL Neurological: Yes: Alert Psychiatric: Yes: Alert, Other Labs: CBC, BMP 01/23/19 06:30 01/24/19 06:40 INR, PTT INR 1.18 (0.83-1.09) H 01/20/19 08:44 Assessment/Plan Problem List - Problems (1) Acute anemia Code(s): D64.9 - ANEMIA, UNSPECIFIED (2) Hyponatremia syndrome Code(s): E87.1 - HYPO-OSMOLALITY AND HYPONATREMIA (3) Prophylactic measure Code(s): Z29.9 - ENCOUNTER FOR PROPHYLACTIC MEASURES, UNSPECIFIED (4) Anxiety Code(s): F41.9 - ANXIETY DISORDER, UNSPECIFIED (5) Atrial fibrillation Code(s): I48.91 - UNSPECIFIED ATRIAL FIBRILLATION Qualifiers: Atrial fibrillation type: persistent Qualified Code(s): I48.1 - Persistent atrial fibrillation (6) CAD (coronary artery disease) Code(s): I25.10 - ATHSCL HEART DISEASE OF [place] CORONARY ARTERY W/O ANG PCTRS Qualifiers: Coronary Disease-Associated Artery/Lesion type: bypass graft [place] vs. 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
[2019-01-24] MEDS: SODIUM CHLORIDE 1 GM TABLET PO SCH ×2 (17:15→21:50)
[2019-01-24] MEDS: traMADol HCL 50 MG TABLET PO PRN (21:48)
[2019-01-24] MEDS: ATORVASTATIN CA 80 MG TABLET (FP) PO SCH (21:50)
[2019-01-24] MEDS: SENNOSIDES 8.6MG TABLET (FP) PO SCH (21:50)
[2019-01-24] MEDS: INSULIN (LEVEMIR) 100 UNITS/ML UNITS SQ SCH (21:57)
[2019-01-24] MEDS ORDERED: TAMSULOSIN HCL 0.4 MG CAP PO SCH (22:00)
[2019-01-25] MEDS: ALPRAZolam 0.25 MG TABLET PO PRN (04:11)
[2019-01-25] MEDS ORDERED: PT OWN MED DRAWER 7, Y5N ONE (05:23)
[2019-01-25] MEDS: DOCUSATE SODIUM 100 MG CAPSULE (FP) PO SCH ×3 (05:40→23:52)
[2019-01-25] MEDS: DICLOXACILLIN SODIUM 250 MG CAPSULE PO SCH ×3 (05:40→23:52)
[2019-01-25] MEDS: INSULIN SLIDING SCALE (NOVOLOG) 1 VIAL SQ SCH ×3 (07:11→22:06)
[2019-01-25 08:17] LABS: ANION GAP 9 MMOL/L (8-16); BLOOD UREA NITROGEN 17 mg/dL (7-18); CALCIUM 7.6 mg/dL (8.5-10.1); CHLORIDE 100 mmol/L (98-107); CO2 26 mmol/L (21-32); CREATININE 0.7 mg/dL (0.55-1.3); GLUCOSE,RANDOM 67 mg/dL (74-106); POTASSIUM 4.1 mmol/L (3.5-5.1); SODIUM 135 mmol/L (136-145)
[2019-01-25] MEDS ORDERED: LEVOTHYROXINE NA 100 MCG TABLET (FP) ONE (10:20)
[2019-01-25] MEDS ORDERED: LEVOTHYROXINE NA 75 MCG TABLET (FP) ONE (10:20)
[2019-01-25] MEDS ORDERED: cefTRIAXone SODIUM 1 GM VIAL ONE (10:21)
[2019-01-25] MEDS ORDERED: DEXTROSE 5%-WATER - 50 ML IVPB ONE (10:21)
[2019-01-25] MEDS: LEVOTHYROXINE 100 MCG, LEVOTHYROXINE 75 MCG PO SCH (10:26)
[2019-01-25] MEDS: LACOSAMIDE 50 MG TABLET PO SCH ×2 (10:26→23:48)
[2019-01-25] MEDS: CARVEDILOL 3.125 MG TABLET (FP) PO SCH (10:26)
[2019-01-25] MEDS: PANTOPRAZOLE 40 MG TABLET (FP) PO SCH ×2 (10:26→23:54)
[2019-01-25] MEDS: MULTIVITAMINS (DAILY MVI) TABLET (FP) PO SCH (10:26)
[2019-01-25] MEDS: ESCITALOPRAM OXALATE 10 MG TABLET (FP) PO SCH (10:27)
[2019-01-25] MEDS: AMIODARONE HCL 200 MG TABLET (FP) PO SCH (10:28)
[2019-01-25] MEDS: DUTASTERIDE 0.5 MG CAP (FP) PO SCH (10:29)
[2019-01-25] MEDS: POLYETHYLENE GLYCOL 3350 119 GM BTL PO SCH (10:35)
[2019-01-25] MEDS: NYSTATIN 100,000 UNIT/GM TOPICAL CREAM 15 GM TUBE TP SCH ×2 (10:35→23:53)
[2019-01-25] MEDS: HYDROCORTISONE 2.5% TOPICAL CREAM 30 GM TUBE TP SCH ×2 (10:35→23:54)
[2019-01-25] MEDS: CEFTRIAXONE 1 GM in DEXTROSE 5%-WATER - 50 ML IVPB SCH (10:36)
--- NOTE | 2019-01-25 13:07 | PN ---
Progress Note, Physician History of Present Illness: stable calm,comfortable - Current Medication List Current Medications: Active Medications Amiodarone HCl (Cordarone -) 100 mg PO DAILY [facility] Last Admin: 01/25/19 10:28 Dose: 100 mg Atorvastatin Calcium (Lipitor -) 80 mg PO HS [facility] Last Admin: 01/24/19 21:50 Dose: 80 mg Carvedilol (Coreg -) 3.125 mg PO DAILY [facility] Last Admin: 01/25/19 10:26 Dose: 3.125 mg Dicloxacillin Sodium (Dynapen -) 500 mg PO TID [facility] Last Admin: 01/25/19 05:40 Dose: 500 mg Docusate Sodium (Colace -) 100 mg PO TID [facility] Last Admin: 01/25/19 05:40 Dose: 100 mg Dutasteride (Avodart -) 0.5 mg PO DAILY [facility] Last Admin: 01/25/19 10:29 Dose: 0.5 mg Escitalopram Oxalate (Lexapro -) 10 mg PO DAILY [facility] Last Admin: 01/25/19 10:27 Dose: 10 mg Hydrocortisone (Anusol 2.5% Hc Cream -) 1 applic TP BID [facility] Last Admin: 01/25/19 10:35 Dose: 1 applic Ceftriaxone Sodium 1 gm/ (Dextrose) 50 mls @ 100 mls/hr IVPB DAILY [facility] Last Admin: 01/25/19 10:36 Dose: 100 mls/hr Insulin Aspart (Novolog Vial Sliding Scale -) [address] [facility]; Protocol Last Admin: 01/25/19 07:11 Dose: Not Given Insulin Detemir (Levemir Vial) 10 units SQ [facility] Last Admin: 01/24/19 21:57 Dose: 10 units Lacosamide (Vimpat -) 100 mg PO BID [facility] Last Admin: 01/25/19 10:26 Dose: 100 mg Levothyroxine Sodium 100 mcg/ (Levothyroxine Sodium 75 mcg) 175 mcg PO DAILY@ 0700 [facility] Last Admin: 01/25/19 10:26 Dose: 175 mcg Multi-Ingredient Ointment (Zinc Oxide) 1 applic TP BID [facility] Last Admin: 01/24/19 21:53 Dose: 1 applic Multivitamins/Minerals/Vitamin C (Tab-A-Vit -) 1 tab PO DAILY [facility] Last Admin: 01/25/19 10:26 Dose: 1 tab Nystatin (Mycostatin Cream -) 1 applic TP BID [facility] Last Admin: 01/25/19 10:35 Dose: 1 applic Pantoprazole Sodium (Protonix -) 40 mg PO BID [facility] Last Admin: 01/25/19 10:26 Dose: 40 mg Polyethylene Glycol (Miralax (For Daily Use) -) 17 gm PO DAILY [facility] Last Admin: 01/25/19 10:35 Dose: 17 gm Senna (Senna -) 2 tab PO HS [facility] Last Admin: 01/24/19 21:50 Dose: 2 tab Tamsulosin HCl (Flomax -) 0.8 mg PO HS [facility] Last Admin: 01/24/19 21:51 Dose: 0.8 mg - Objective Vital Signs: Vital Signs Temperature 98.5 F 01/25/19 06:54 Pulse Rate 85 01/25/19 06:47 Respiratory Rate 18 01/25/19 06:47 Blood Pressure 84/54 L 01/25/19 06:47 O2 Sat by Pulse Oximetry (%) 98 01/24/19 21:00 Constitutional: Yes: No Distress, Calm Cardiovascular: Yes: S1, S2 Respiratory: Yes: Regular, CTA Bilaterally Gastrointestinal: Yes: Normal Bowel Sounds, Soft Musculoskeletal: Yes: WNL Extremities: Yes: Other Integumentary: Yes: Other (bruising) Neurological: Yes: Alert Labs: CBC, BMP 01/23/19 06:30 01/25/19 06:40 INR, PTT INR 1.18 (0.83-1.09) H 01/20/19 08:44 Assessment/Plan Problem List - Problems (1) Acute anemia Code(s): D64.9 - ANEMIA, UNSPECIFIED (2) Hyponatremia syndrome Code(s): E87.1 - HYPO-OSMOLALITY AND HYPONATREMIA (3) Prophylactic measure Code(s): Z29.9 - ENCOUNTER FOR PROPHYLACTIC MEASURES, UNSPECIFIED (4) Anxiety Code(s): F41.9 - ANXIETY DISORDER, UNSPECIFIED (5) Atrial fibrillation Code(s): I48.91 - UNSPECIFIED ATRIAL FIBRILLATION Qualifiers: Atrial fibrillation type: persistent Qualified Code(s): I48.1 - Persistent atrial fibrillation (6) CAD (coronary artery disease) Code(s): I25.10 - ATHSCL HEART DISEASE OF [place] CORONARY ARTERY W/O ANG PCTRS Qualifiers: Coronary Disease-Associated Artery/Lesion type: bypass graft [place] vs. 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
--- NOTE | 2019-01-25 13:42 | PN ---
Progress Note (short form) - Note Progress Note: comfortable no new issues. afebrile Vital Signs Temp 98.5 F 01/25/19 06:54 Pulse 85 01/25/19 06:47 Resp 18 01/25/19 06:47 BP 84/54 L 01/25/19 06:47 Pulse Ox 98 01/24/19 21:00 Intake & Output 01/24/19 01/25/19 01/25/19 23:59 11:59 23:59 Intake Total 450 200 Output Total 800 Balance 450 -600 Weight 187 lb Intake: IVPB 50 Oral 400 200 Output: Urine 800 [place] 800 Other: Voiding Method Indwelling Catheter Indwelling Catheter Weight Measurement Method Built in [facility] Active Medications Amiodarone HCl (Cordarone -) 100 mg PO DAILY [facility] Last Admin: 01/25/19 10:28 Dose: 100 mg Atorvastatin Calcium (Lipitor -) 80 mg PO [facility] Last Admin: 01/24/19 21:50 Dose: 80 mg Carvedilol (Coreg -) 3.125 mg PO DAILY [facility] Last Admin: 01/25/19 10:26 Dose: 3.125 mg Dicloxacillin Sodium (Dynapen -) 500 mg PO TID [facility] Last Admin: 01/25/19 05:40 Dose: 500 mg Docusate Sodium (Colace -) 100 mg PO TID [facility] Last Admin: 01/25/19 05:40 Dose: 100 mg Dutasteride (Avodart -) 0.5 mg PO DAILY [facility] Last Admin: 01/25/19 10:29 Dose: 0.5 mg Escitalopram Oxalate (Lexapro -) 10 mg PO DAILY [facility] Last Admin: 01/25/19 10:27 Dose: 10 mg Hydrocortisone (Anusol 2.5% Hc Cream -) 1 applic TP BID [facility] Last Admin: 01/25/19 10:35 Dose: 1 applic Ceftriaxone Sodium 1 gm/ (Dextrose) 50 mls @ 100 mls/hr IVPB DAILY [facility] Last Admin: 01/25/19 10:36 Dose: 100 mls/hr Insulin Aspart (Novolog Vial Sliding Scale -) 1 vial SQ [facility]; Protocol Last Admin: 01/25/19 07:11 Dose: Not Given Insulin Detemir (Levemir Vial) 10 units SQ [facility] Last Admin: 01/24/19 21:57 Dose: 10 units Lacosamide (Vimpat -) 100 mg PO BID [facility] Last Admin: 01/25/19 10:26 Dose: 100 mg Levothyroxine Sodium 100 mcg/ (Levothyroxine Sodium 75 mcg) 175 mcg PO DAILY@ 0700 [facility] Last Admin: 01/25/19 10:26 Dose: 175 mcg Multi-Ingredient Ointment (Zinc Oxide) 1 applic TP BID [facility] Last Admin: 01/24/19 21:53 Dose: 1 applic Multivitamins/Minerals/Vitamin C (Tab-A-Vit -) 1 tab PO DAILY [facility] Last Admin: 01/25/19 10:26 Dose: 1 tab Nystatin (Mycostatin Cream -) 1 applic TP BID [facility] Last Admin: 01/25/19 10:35 Dose: 1 applic Pantoprazole Sodium (Protonix -) 40 mg PO BID [facility] Last Admin: 01/25/19 10:26 Dose: 40 mg Polyethylene Glycol (Miralax (For Daily Use) -) 17 gm PO DAILY [facility] Last Admin: 01/25/19 10:35 Dose: 17 gm Senna (Senna -) 2 tab PO HS [facility] Last Admin: 01/24/19 21:50 Dose: 2 tab Tamsulosin HCl (Flomax -) 0.8 mg PO HS [facility] Last Admin: 01/24/19 21:51 Dose: 0.8 mg CBC, BMP 01/23/19 06:30 01/25/19 06:40 hysical Exam . S1 S2 Irregular Lungs decreased breath sounds Abd- soft, NT trace edema B/L Right arm-- edema decreased , hematoma less, eccyhmosis less ,not tender. Neuro- alert/awake. [place] + a/p clinically stable continue present care On abx for uti -- rocephin Doxy for chronic osteo physical therapy. cardiology f/u pending . added avodart increased flomax voiding trial --tomorrow check psa/ as out pt will follow discussed with nursing staff also . Problem List - Problems (1) Acute urinary retention Code(s): R33.8 - OTHER RETENTION OF URINE (2) Anxiety Code(s): F41.9 - ANXIETY DISORDER, UNSPECIFIED (3) Atrial fibrillation Code(s): I48.91 - UNSPECIFIED ATRIAL FIBRILLATION Qualifiers: Atrial fibrillation type: persistent Qualified Code(s): I48.1 - Persistent atrial fibrillation (4) IDDM (insulin dependent diabetes mellitus) Code(s): E11.9 - TYPE 2 DIABETES MELLITUS WITHOUT COMPLICATIONS; Z79.4 - RETIREMENT (CURRENT) USE OF INSULIN (5) S/P CABG (coronary artery bypass graft) Code(s): Z95.1 - PRESENCE OF AORTOCORONARY BYPASS GRAFT
[2019-01-25] MEDS: ZINC OXIDE 20% TOPICAL OINTMENT 30 GM TUBE TP SCH ×2 (14:06→23:54)
--- NOTE | 2019-01-25 16:14 | EKG ---
Test Reason : Blood Pressure : / mmHG Vent. Rate : 075 BPM Atrial Rate : 062 BPM P-R Int : 000 ms QRS Dur : 124 ms QT Int : 450 ms P-R-T Axes : 000 -57 078 degrees QTc Int : 502 ms ATRIAL FIBRILLATION WITH PREMATURE VENTRICULAR OR ABERRANTLY CONDUCTED COMPLEXES LEFT AXIS DEVIATION INFERIOR INFARCT (CITED ON OR BEFORE 23-JUL-2006) ABNORMAL ECG WHEN COMPARED WITH ECG OF 19-JAN-2019 16:54, NONSPECIFIC T WAVE ABNORMALITY, IMPROVED IN LATERAL LEADS Confirmed by PAMELA PIÑA MD ([id number]) on 01/25/2019 4:14:03 PM Referred By: Naty YADAV Confirmed By:PAMELA PIÑA MD
--- NOTE | 2019-01-25 16:23 | PN ---
Progress Note (short form) - Note Progress Note: Progress note dictated. Sudden onset of unresponsiveness, probable an acute onset cerebrovascular event , awaitng CT scan done.
[2019-01-25 16:26] LABS: ALLENS TEST POSITIVE; ARTERIAL BLD GAS O2 SATURATION 97.9 % (95-98); ARTERIAL BLOOD GAS BASE EXCESS 4.1 meq/l (-2-2); ARTERIAL BLOOD GAS PCO2 31.6 mmHg (35-45); ARTERIAL BLOOD GAS PO2 91.7 mmHg (80-105); ARTERIAL BLOOD GAS pH 7.53 (7.35-7.45)
--- NOTE | 2019-01-25 16:55 | PN ---
DATE OF VISIT: 01/25/2019 HISTORY: A 78-year-old gentleman with a longstanding history of coronary artery disease, status post coronary artery bypass graft, severely reduced LVEF, history of mitral valve prolapse with mitral regurgitation, moderate tricuspid regurgitation, history of pulmonary hypertension, history of atrial fibrillation, hypertension, hypertensive cardiovascular disease, noninsulin dependent diabetes mellitus, hypothyroidism, dyslipidemia. The patient was admitted from a halfway facility with a history of sustaining a large hematoma involving the right upper extremity and swelling of the right forearm. The patient also gave a history of being unable to flex his fingers. Came to see the patient and was found to be unresponsive by the nurse and she was bringing him back from the radiological department. On speaking to the staff, he had his breakfast, had lunch and the nurse noticed that he suddenly became unresponsive. MEDICATIONS: 1. Avodart 0.5 mg p.o. daily. 2. Hydrocortisone Anusol 1 application b.i.d. 3. Flomax 0.8 mg p.o. daily. 4. Amiodarone 100 mg p.o. daily. 5. Ceftriaxone IV daily. 6. Lexapro 10 mg p.o. daily. 7. Vimpat 100 mg p.o. b.i.d. 8. Carvedilol 3.125 mg p.o. daily. 9. Colace 100 mg p.o. t.i.d. 10. MiraLAX 17 g p.o. daily. 11. Senna 2 tablets p.o. at bedtime. 12. Lipitor 80 mg p.o. daily. 13. Novolin insulin via sliding scale. 14. Levemir 10 units subcutaneous at bedtime. 15. Dynapen 500 mg p.o. t.i.d. 16. Zinc oxide 1 application b.i.d. 17. Mycostatin cream 1 application b.i.d. 18. Protonix 40 mg p.o. b.i.d. 19. Levothyroxine 175 mcg p.o. daily. EXAMINATION: General: A 78-year-old who was unresponsive to verbal stimuli but did respond to painful stimuli. Vital Signs: Blood pressure 96/54 mmHg. Pulse 88 bpm and was regular, temperature 98.3 degrees Fahrenheit, respirations 18 per minute, oxygen saturation done earlier. Neck: Supple, no jugular venous distention. Carotids were 1 to 2+. Upstrokes were normal. Unable to appreciate any bruits. Heart: PMI was in the 5th intercostal space. No heaves or thrills. Heart sounds were distant. Grade 1/6 decrescendo systolic murmur at the apex and along the left sternal border. No diastolic murmur or gallops heard. Lungs: Decreased breath sounds at both bases but clear. Abdomen: Soft, nontender. No hepatosplenomegaly or palpable masses are felt. Extremities: No calf tenderness. There was discoloration and swelling of the right forearm. There was a firm mass involving the biceps and possibly triceps muscle. There were stasis changes involving both lower extremities. LABORATORY DATA: Electrolytes January 25, 2019: Sodium 135, potassium 4.1, chloride 100, CO2 26 mmol/L, glucose 96 mg/dL. A CBC is not available. IMPRESSION: 1. Unresponsiveness, etiology to be determined. a. Cerebrovascular accident/embolization needs to be excluded. 2. Coronary artery disease status post coronary artery bypass grafting. 3. Severe left ventricular systolic dysfunction. 4. History of paroxysmal atrial fibrillation. 5. History of ventricular premature beats. 6. Status post congestive heart failure. 7. Hypothyroidism on replacement therapy. RECOMMENDATIONS: 1. Neurological evaluation. 2. CT scan report is pending. 3. Arterial blood gases. 4. According to the nurse, blood sugar was checked and was 90 mg/dL. 5. Dr. Chance was spoken to and will be calling neurological consultation. PROGNOSIS: Critical. Michael [id number]
[2019-01-25 16:59] LABS: BASO % 0.9 % (0-2.0); HEMATOCRIT 30.4 % (35.4-49); HEMOGLOBIN 10.4 GM/dL (11.7-16.9); LYMPH % 7.7 % (8-40); MCH 32.1 pg (25.7-33.7); MCHC 34.4 g/dl (32.0-35.9); MEAN CELL VOLUME 93.4 fl (80-96); MEAN PLT VOLUME 8.2 fl (7.5-11.1); MONO % 8.6 % (3.8-10.2); NEUT % 81.8 % (42.8-82.8); PLATELET COUNT 205 K/MM3 (134-434); RBC 3.25 M/mm3 (4.00-5.60); WHITE BLOOD COUNT 8.7 K/mm3 (4.0-10.0)
[2019-01-25] MEDS ORDERED: levETIRAcetam 500 MG/5 ML INJECTION VIAL IVPB ONE (17:01)
--- NOTE | 2019-01-25 17:01 | HOSP ---
Physical Examination Vital Signs: Vital Signs Temperature 98.3 F 01/25/19 15:44 Pulse Rate 88 01/25/19 15:44 Respiratory Rate 18 01/25/19 15:44 Blood Pressure 96/54 L 01/25/19 15:44 O2 Sat by Pulse Oximetry (%) 98 01/25/19 09:00 Constitutional: Yes: Other HENT: Yes: Atraumatic Cardiovascular: Yes: Pulse Irregular Respiratory: Yes: Regular Gastrointestinal: Yes: Normal Bowel Sounds Hospitalist Encounter Assessment: Patient is an 78 year old male with a past medical history of atril fibrillation, right arm dvt (not on a/c due to falls), cad s/p 4 V CABG, an s/p frontal parietal crainiotomy and ?seizures? I was asked to see patient for unresponsiveness. Patient is laying in bed, pallorous, vitals stable 98/60, breathing, 14, 97% room air, afebrile. response to painful stimuli, otherwise unresponsive to tactile or voice. Possible seizure?. head ct negative for acute process. ekg afib controlled, unchanged from previous. stat head ct negative for acute process. abg reviewed, no co2 retention. plan: fluid bolus x 1 now give keppra 1000mg now loading dose, then keppra 500mg ivpb pending neuro eval chest xray troponins tend repeat cbc, cmp, mag, ammonia, neuro called to evaluate transfer to [facility] seen and evaluated by dr nye (hairspring staker) and poc discussed with him primary care physician called (Dr. Todd) and aware of patient current status patient is a dnr/dni
[2019-01-25] MEDS ORDERED: SODIUM CHLORIDE 1,000 ML IV STA (17:02)
--- NOTE | 2019-01-25 17:07 | PN ---
Progress Note, Physician History of Present Illness: Pt seen and examined at bedside. He is not waking up. Asked nurse to check vitals and call medical team. Pt not responding to sternal rub. - Current Medication List Current Medications: Active Medications Amiodarone HCl (Cordarone -) 100 mg PO DAILY [facility] Last Admin: 01/25/19 10:28 Dose: 100 mg Atorvastatin Calcium (Lipitor -) 80 mg PO [facility] Last Admin: 01/24/19 21:50 Dose: 80 mg Carvedilol (Coreg -) 3.125 mg PO DAILY [facility] Last Admin: 01/25/19 10:26 Dose: 3.125 mg Dicloxacillin Sodium (Dynapen -) 500 mg PO TID [facility] Last Admin: 01/25/19 14:06 Dose: Not Given Docusate Sodium (Colace -) 100 mg PO TID [facility] Last Admin: 01/25/19 14:06 Dose: Not Given Dutasteride (Avodart -) 0.5 mg PO DAILY [facility] Last Admin: 01/25/19 10:29 Dose: 0.5 mg Escitalopram Oxalate (Lexapro -) 10 mg PO DAILY [facility] Last Admin: 01/25/19 10:27 Dose: 10 mg Hydrocortisone (Anusol 2.5% Hc Cream -) 1 applic TP BID [facility] Last Admin: 01/25/19 10:35 Dose: 1 applic Ceftriaxone Sodium 1 gm/ (Dextrose) 50 mls @ 100 mls/hr IVPB DAILY [facility] Last Admin: 01/25/19 10:36 Dose: 100 mls/hr Sodium Chloride (Normal Saline -) 1,000 mls @ 1,000 mls/hr IV ASDIR STA Stop: 01/25/19 18:01 Insulin Aspart (Novolog Vial Sliding Scale -) 1 vial SQ [facility]; Protocol Last Admin: 01/25/19 14:03 Dose: Not Given Insulin Detemir (Levemir Vial) 10 units SQ [facility] Last Admin: 01/24/19 21:57 Dose: 10 units Lacosamide (Vimpat -) 100 mg PO BID [facility] Last Admin: 01/25/19 10:26 Dose: 100 mg Levetiracetam (Keppra Injection -) 1,000 mg IVPB ONCE ONE Stop: 01/25/19 17:02 Levothyroxine Sodium 100 mcg/ (Levothyroxine Sodium 75 mcg) 175 mcg PO DAILY@ 0700 [facility] Last Admin: 01/25/19 10:26 Dose: 175 mcg Multi-Ingredient Ointment (Zinc Oxide) 1 applic TP BID [facility] Last Admin: 01/25/19 14:06 Dose: 1 applic Multivitamins/Minerals/Vitamin C (Tab-A-Vit -) 1 tab PO DAILY [facility] Last Admin: 01/25/19 10:26 Dose: 1 tab Nystatin (Mycostatin Cream -) 1 applic TP BID [facility] Last Admin: 01/25/19 10:35 Dose: 1 applic Pantoprazole Sodium (Protonix -) 40 mg PO BID [facility] Last Admin: 01/25/19 10:26 Dose: 40 mg Polyethylene Glycol (Miralax (For Daily Use) -) 17 gm PO DAILY [facility] Last Admin: 01/25/19 10:35 Dose: 17 gm Senna (Senna -) 2 tab PO [facility] Last Admin: 01/24/19 21:50 Dose: 2 tab Tamsulosin HCl (Flomax -) 0.8 mg PO [facility] Last Admin: 01/24/19 21:51 Dose: 0.8 mg - Objective Vital Signs: Vital Signs Temperature 98.3 F 01/25/19 15:44 Pulse Rate 88 01/25/19 15:44 Respiratory Rate 18 01/25/19 15:44 Blood Pressure 96/54 L 01/25/19 15:44 O2 Sat by Pulse Oximetry (%) 98 01/25/19 09:00 Constitutional: Yes: Calm Eyes: Yes: Conjunctiva Clear HENT: Yes: Atraumatic Cardiovascular: Yes: S1, S2 Respiratory: Yes: CTA Bilaterally Gastrointestinal: Yes: Soft Musculoskeletal: Yes: Muscle Weakness Edema: No Neurological: Yes: Lethargy Labs: CBC, BMP 01/25/19 16:40 INR, PTT INR 1.18 (0.83-1.09) H 01/20/19 08:44 Problem List - Problems (1) Anemia Code(s): D64.9 - ANEMIA, UNSPECIFIED Qualifiers: Anemia type: unspecified type Qualified Code(s): D64.9 - Anemia, unspecified (2) Hyponatremia syndrome Code(s): E87.1 - HYPO-OSMOLALITY AND HYPONATREMIA (3) Atrial fibrillation Code(s): I48.91 - UNSPECIFIED ATRIAL FIBRILLATION Qualifiers: Atrial fibrillation type: persistent Qualified Code(s): I48.1 - Persistent atrial fibrillation (4) Congestive heart disease Code(s): I50.9 - HEART FAILURE, UNSPECIFIED Qualifiers: Heart failure type: combined systolic and diastolic Heart failure chronicity: acute on chronic Qualified Code(s): I50.43 - Acute on chronic combined systolic (congestive) and diastolic (congestive) heart failure Assessment/Plan Current Medications Generic Name Dose Route Start Last Admin Trade Name Yocasta PRN Reason Stop Dose Admin Amiodarone HCl 100 mg 01/20/19 10:00 01/25/19 10:28 Cordarone - PO 100 mg DAILY [facility] Administration Atorvastatin Calcium 80 mg 01/20/19 22:00 01/24/19 21:50 Lipitor - PO 80 mg HS [facility] Administration Carvedilol 3.125 mg 01/20/19 10:00 01/25/19 10:26 Coreg - PO 3.125 mg DAILY [facility] Administration Dicloxacillin Sodium 500 mg 01/19/19 22:15 01/25/19 14:06 Dynapen - PO Not Given TID [facility] Docusate Sodium 100 mg 01/19/19 22:15 01/25/19 14:06 Colace - PO Not Given TID [facility]GENE Dutasteride 0.5 mg 01/24/19 12:45 01/25/19 10:29 Avodart - PO 0.5 mg DAILY [facility] Administration Escitalopram Oxalate 10 mg 01/20/19 10:00 01/25/19 10:27 Lexapro - PO 10 mg DAILY [facility] Administration Hydrocortisone 1 applic 01/20/19 10:30 01/25/19 10:35 Anusol 2.5% Hc Cream - TP 1 applic BID [facility] Administration Ceftriaxone Sodium 1 gm/ 50 mls @ 100 mls/hr 01/21/19 10:00 01/25/19 10:36 Dextrose IVPB 100 mls/hr DAILY [facility] Administration Sodium Chloride 1,000 mls @ 1,000 mls/hr 01/25/19 17:02 Normal Saline - IV 01/25/19 18:01 ASDIR STA Insulin Aspart 1 vial 01/20/19 07:00 01/25/19 14:03 Novolog Vial Sliding Scale - SQ Not Given ACHS [facility] Protocol Insulin Detemir 10 units 01/20/19 22:00 01/24/19 21:57 Levemir Vial SQ 10 units HS [facility] Administration Lacosamide 100 mg 01/19/19 23:45 01/25/19 10:26 Vimpat - PO 100 mg BID [facility] Administration Levetiracetam 1,000 mg 01/25/19 17:01 Keppra Injection - IVPB 01/25/19 17:02 ONCE ONE Levothyroxine Sodium 100 mcg/ 175 mcg 01/20/19 07:00 01/25/19 10:26 Levothyroxine Sodium 75 mcg PO 175 mcg DAILY@0700 [facility] Administration Multi-Ingredient Ointment 1 applic 01/20/19 10:30 01/25/19 14:06 Zinc Oxide TP 1 applic BID [facility] Administration Multivitamins/Minerals/Vitamin C 1 tab 01/20/19 10:00 01/25/19 10:26 Tab-A-Vit - PO 1 tab DAILY [facility] Administration Nystatin 1 applic 01/20/19 10:30 01/25/19 10:35 Mycostatin Cream - TP 1 applic BID [facility] Administration Pantoprazole Sodium 40 mg 01/19/19 22:30 01/25/19 10:26 Protonix - PO 40 mg BID [facility] Administration Polyethylene Glycol 17 gm 01/23/19 10:30 01/25/19 10:35 Miralax (For Daily Use) - PO 17 gm DAILY [facility] Administration Senna 2 tab 01/20/19 22:00 01/24/19 21:50 Senna - PO 2 tab HS [facility] Administration Tamsulosin HCl 0.8 mg 01/24/19 22:00 01/24/19 21:51 Flomax - PO 0.8 mg HS [facility] Administration Impression 1. hyponatremia 2. chf 3. anemia 4. cad 5. dm 6. a-fib 7. htn 8. lethargy 9. altered mental status Plan - sodium is improved - called medical team to evaluate pt - check vitals - consider ct head - bolus saline if hypotensive - hold diuretics
[2019-01-25] MEDS ORDERED: SODIUM CHLORIDE 1,000 ML IV SCH (17:15)
[2019-01-25 17:24] LABS: ALK PHOS 165 U/L (45-117); ANION GAP 7 MMOL/L (8-16); BILIRUBIN,TOTAL 1.3 mg/dL (0.2-1); BLOOD UREA NITROGEN 17 mg/dL (7-18); CALCIUM 7.6 mg/dL (8.5-10.1); CHLORIDE 100 mmol/L (98-107); CO2 27 mmol/L (21-32); CREATININE 0.7 mg/dL (0.55-1.3); GLUCOSE,RANDOM 91 mg/dL (74-106); MAGNESIUM 2.1 mg/dL (1.8-2.4); SGOT/AST 58 U/L (15-37); SGPT/ALT 69 U/L (13-61); SODIUM 134 mmol/L (136-145); TOT PROT 5.1 g/dl (6.4-8.2)
--- NOTE | 2019-01-25 20:05 | CON.NEURO ---
Consult Consult Specialty:: NEUROLOGY-ESCOBAR GRANT - History of Present Illness History of Present Illness: 78 year old M with hx CAD s/p 4V CABG, pafib, htn, hld, systolic CHF, hypothyroidism, DMII, Chronic osteomyelitis, and parietal meningioma (s/p resection 2001) transferred from [facility] to [facility] for evaluation of acute anemia (hgb 5.9). Mr. Lackey's protracted health problems started on dec 2018 when he sustained a mechanical fall, landing on left hip resulting in left greater trochanter fracture on xray and CT pelvis. Pt was evaluated by ortho and no surgical intervention was recommended. Pt was discharged to [facility] for acute rehabilitation. Pt is bed bound since his fall with resultant fracture. He reports that early in his rehab course at [facility] he experienced acute dyspnea and was taken to [facility] where he was diagnosed with a PE and LLE DVT. He was discharged back to [facility] on Lovenox 80mg BID. On the morning of 01/19, routine labs at [facility] revealed hgb 5.9, pt opted to return to [facility] for evaluation instead of [facility] since most of his providers are located at this facility. At baseline, his hgb is 11. In ED, pt was noted to have H/H 6.6/19.0. He was transfused 1unit PRBC and admitted to tele floor. Vitals in ED: BP 100/64mmHg, HR 88bpm, T 99.5, RR 18, O2 sat 96% Pt has RUE swelling for which venous doppler was done: negative for DVT. THIS AFTERNOON: Patient is an 78 year old male with a past medical history of atril fibrillation, right arm dvt (not on a/c due to falls), cad s/p 4 V CABG, an s/p frontal parietal crainiotomy and ?seizures? I was asked to see patient for unresponsiveness. Patient is laying in bed, pallorous, vitals stable 98/60, breathing, 14, 97% room air, afebrile. response to painful stimuli, otherwise unresponsive to tactile or voice. Possible seizure?. head ct negative for acute process. ekg afib controlled, unchanged from previous. stat head ct negative for acute process. abg reviewed, no co2 retention. -Pts. daughter who i know from his admission at [facility] last year tells me he does not have a language d/o, since episode of unresponsiveness today has not been able to phonate. Pt. is mute but is able to gesture responsesa, keeps eyes closed, gestures he does not know why eyes will not open. Wrote that his metal plate is MRI compatible. At baseline he ambulates with walker, has been on Lacosamide since first sz. in at that time his LFTs were abnormal. - Past Medical History DIVISION CHIEF: Yes: Peripheral Neuropathy, Other (meningioma) Cardio/Vascular: Yes: AFIB, CAD (s/p CABG), CHF, Deep Vein Thrombosis, HTN, Hyperlipdemia Pulmonary: Yes: Pulmonary Embolus Renal/: Yes: BPH Psych: Yes: Anxiety Musculoskeletal: Yes: Chronic low back pain, Osteoarthritis Endocrine: Yes: Diabetes Mellitus, Hypothyroidism - Past Surgical History Past Surgical History: Yes: Appendectomy, CABG - Alcohol/Substance Use Hx Alcohol Use: No History of Substance Use: reports: None - Smoking History Smoking history: Former smoker Have you smoked in the past 12 months: No If you are a former smoker, when did you quit?: 40YRS AGO - Social History Usual Living Arrangement: Other ([facility]) ADL: Support Services History of Recent Travel: No Home Medications - Allergies Allergies/Adverse Reactions: Allergies Allergy/AdvReac Type Severity Reaction Status Date / Time No Known Drug Allergies Allergy Verified 01/19/19 16:53 strawberry Allergy Hives Verified 01/19/19 20:53 - Home Medications Home Medications: Ambulatory Orders Alprazolam [Xanax] 1 mg PO HS 01/19/19 Amiodarone HCl 100 mg PO DAILY 01/19/19 Atorvastatin Ca [Lipitor] 80 mg PO HS 01/19/19 Carvedilol [Coreg -] 3.125 mg PO DAILY 01/19/19 Dicloxacillin Sodium [Dynapen -] 500 mg PO Q8H 01/19/19 Docusate Sodium [Colace -] 100 mg PO TID 01/19/19 Enoxaparin [Lovenox -] 80 mg SQ Q12H 01/19/19 Escitalopram Oxalate [Lexapro -] 10 mg PO DAILY 01/19/19 Furosemide [Lasix -] 40 mg PO BID 01/19/19 HYDROmorphone [Dilaudid -] 2 mg PO Q3H PRN 01/19/19 HYDROmorphone [Dilaudid -] 4 mg PO Q3H PRN 01/19/19 Insulin Glargine,Hum.rec.anlog [Lantus Solostar] 10 unit SQ HS 01/19/19 Insulin Lispro [Humalog] 100 unit SQ BID 01/19/19 Lacosamide [Vimpat] 100 mg PO Q12H 01/19/19 Levothyroxine [Synthroid -] 175 mcg PO DAILY 01/19/19 Multivitamin [Multiple Vitamins] 1 each PO DAILY 01/19/19 Pantoprazole Sodium [Protonix -] 40 mg PO DAILY 01/19/19 Sennosides [Senna] 2 tab PO HS 01/19/19 Spironolactone [Aldactone] 25 mg PO DAILY 01/19/19 Tamsulosin HCl [Flomax] 0.4 mg PO DAILY 01/19/19 Family Disease History - Family Disease History Family Disease History: Diabetes: Mother ( ( 70) natural causes), Other : Father ( (80s) aspiration), Mother, Brother ( alive (62) ), Sister ( alive (66) OA) Physical Exam-Neuro Vital Signs: Vital Signs Temperature 98.3 F 01/25/19 15:44 Pulse Rate 82 01/25/19 17:49 Respiratory Rate 18 01/25/19 17:49 Blood Pressure 105/63 01/25/19 17:49 O2 Sat by Pulse Oximetry (%) 99 01/25/19 17:50 Labs: CBC, BMP 01/25/19 16:40 01/25/19 16:40 INR, PTT INR 1.18 (0.83-1.09) H 01/20/19 08:44 - Neuro Exam Level Of Consciousness: Yes: Alert (mute, orientation is not clear) Speech: Other (mute, intact comprehension) Dominant Hand: Right Mini Mental Exam: Unable to test, pt. is mute Cranial Nerves II-XII Intact: No (eyes closed, when attempt to force open he resists) DTR's: 0 Left Achilles, 0 Right Achilles, 1+ Left Brachioradialis, 2+ Left Bicep , 2+ Left Tricep, 4+ Right Bicep (not allow testing due to pain) Babinski: Absent Response to light touch: Abnormal (+ hyperesthesia bilat LEs and RUE) Motor Strength: 2/5: Right Leg, Left Leg, 5/5: Left Arm Assessment/Plan Pt. with sudden unresponsiveness, brief, since he has not been able to speak and keeps eyes closed. He is also suspected to have a UTI.LFts are mildly elevated as is NH3. He likely had a seizure(possibly triggered by infection/ metabolic abn) and is now mute-ddx.includes post-ictal expressive aphasia or, very less likely an aphemia. Suggest: MRI brain(if metal plate is compatible), increase Keppra to 750mg bid , would d/c lacosamide tomorrow(elevated LFts), EEG. Will follow, thank you, Fer Shea MD
[2019-01-25] MEDS ORDERED: levETIRAcetam 500 MG/5 ML INJECTION VIAL IVPB SCH (22:00)
[2019-01-25] MEDS: INSULIN (LEVEMIR) 100 UNITS/ML UNITS SQ SCH (22:06)
[2019-01-25] MEDS: TAMSULOSIN HCL 0.4 MG CAP PO SCH (23:48)
[2019-01-25] MEDS: ATORVASTATIN CA 80 MG TABLET (FP) PO SCH (23:48)
[2019-01-25] MEDS: SENNOSIDES 8.6MG TABLET (FP) PO SCH (23:51)
[2019-01-25] MEDS: levETIRAcetam 500 MG/5 ML INJECTION VIAL IVPB SCH (23:53)
[2019-01-26] MEDS: HYDROCORTISONE 2.5% TOPICAL CREAM 30 GM TUBE TP SCH ×3 (01:20→22:18)
[2019-01-26] MEDS: NYSTATIN 100,000 UNIT/GM TOPICAL CREAM 15 GM TUBE TP SCH ×3 (01:21→22:03)
[2019-01-26] MEDS ORDERED: traMADol HCL 50 MG TABLET PO PRN (02:08)
[2019-01-26] MEDS ORDERED: ALPRAZolam 0.25 MG TABLET PO PRN (02:09)
[2019-01-26] MEDS ORDERED: LEVOTHYROXINE NA 100 MCG TABLET (FP) ONE (06:22)
[2019-01-26] MEDS ORDERED: LEVOTHYROXINE NA 75 MCG TABLET (FP) ONE (06:22)
[2019-01-26] MEDS: LEVOTHYROXINE 100 MCG, LEVOTHYROXINE 75 MCG PO SCH (06:33)
[2019-01-26] MEDS: DOCUSATE SODIUM 100 MG CAPSULE (FP) PO SCH ×3 (06:34→22:02)
[2019-01-26] MEDS: INSULIN SLIDING SCALE (NOVOLOG) 1 VIAL SQ SCH ×4 (06:34→22:03)
[2019-01-26] MEDS: DICLOXACILLIN SODIUM 250 MG CAPSULE PO SCH ×3 (06:34→22:17)
[2019-01-26] MEDS ORDERED: PT OWN MED DRAWER 7, Y5N ONE ×2 (06:56→09:30)
[2019-01-26] MEDS ORDERED: DEXTROSE 5%-WATER - 50 ML IVPB ONE (09:30)
[2019-01-26] MEDS ORDERED: cefTRIAXone SODIUM 1 GM VIAL ONE (09:30)
--- NOTE | 2019-01-26 09:36 | PN ---
Progress Note (short form) - Note Progress Note: 78 year old M with hx CAD s/p 4V CABG, pafib, htn, hld, systolic CHF, hypothyroidism, DMII, Chronic osteomyelitis, and parietal meningioma (s/p resection 2001) transferred from [facility] to [facility] for evaluation of acute anemia (hgb 5.9). recent admsiion for DVT /PE and came on AC Mr. Lackey's protracted health problems started on dec 2018 when he sustained a mechanical fall, landing on left hip resulting in left greater trochanter fracture on xray and CT pelvis. Pt was evaluated by ortho and no surgical intervention was recommended. Pt was discharged to [facility] for acute rehabilitation. Pt is bed bound since his fall with resultant fracture. On the morning of 01/19, routine labs at [facility] revealed hgb 5.9, pt opted to return to [facility] for evaluation instead of [facility] since most of his providers are located at this facility. At baseline, his hgb is 11. In ED, pt was noted to have H/H 6.6/19.0. He was transfused 1unit PRBC and admitted to tele floor. Vitals in ED: BP 100/64mmHg, HR 88bpm, T 99.5, RR 18, O2 sat 96% Pt has RUE swelling for which venous doppler was done: negative for DVT. Patient is an 78 year old male with a past medical history of atril fibrillation, right arm dvt (not on a/c due to falls), cad s/p 4 V CABG, an s/p frontal parietal crainiotomy and ?seizures? response to painful stimuli, otherwise unresponsive to tactile or voice. Possible seizure?. head ct negative for acute process. ekg afib controlled, unchanged from previous. stat head ct negative for acute process. abg reviewed, no co2 retention. -Pts. daughter who i know from his admission at [facility] last year tells me he does not have a language d/o, since episode of unresponsiveness today has not been able to phonate. Pt. is mute but is able to gesture responsesa, keeps eyes closed, gestures he does not know why eyes will not open. Wrote that his metal plate is MRI compatible. At baseline he ambulates with walker, has been on Lacosamide since first sz. in at that time his LFTs were abnormal. 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: Peripheral Neuropathy, Other (meningioma) Cardio/Vascular: Yes: AFIB, CAD (s/p CABG), CHF, Deep Vein Thrombosis, HTN, Hyperlipdemia Pulmonary: Yes: Pulmonary Embolus Renal/: Yes: BPH Psych: Yes: Anxiety Musculoskeletal: Yes: Chronic low back pain, Osteoarthritis Endocrine: Yes: Diabetes Mellitus, Hypothyroidism - Past Surgical History Past Surgical History: Yes: Appendectomy, CABG - Alcohol/Substance Use Hx Alcohol Use: No History of Substance Use: reports: None - Smoking History Smoking history: Former smoker Have you smoked in the past 12 months: No If you are a former smoker, when did you quit?: 40YRS AGO - Social History Usual Living Arrangement: Other ([facility]) ADL: Support Services History of Recent Travel: No Home Medications - Allergies Allergies/Adverse Reactions: Allergies Allergy/AdvReac Type Severity Reaction Status Date / Time No Known Drug Allergies Allergy Verified 01/19/19 16:53 strawberry Allergy Hives Verified 01/19/19 20:53 - Home Medications Home Medications: Ambulatory Orders Alprazolam [Xanax] 1 mg PO HS 01/19/19 Amiodarone HCl 100 mg PO DAILY 01/19/19 Atorvastatin Ca [Lipitor] 80 mg PO HS 01/19/19 Carvedilol [Coreg -] 3.125 mg PO DAILY 01/19/19 Dicloxacillin Sodium [Dynapen -] 500 mg PO Q8H 01/19/19 Docusate Sodium [Colace -] 100 mg PO TID 01/19/19 Enoxaparin [Lovenox -] 80 mg SQ Q12H 01/19/19 Escitalopram Oxalate [Lexapro -] 10 mg PO DAILY 01/19/19 Furosemide [Lasix -] 40 mg PO BID 01/19/19 HYDROmorphone [Dilaudid -] 2 mg PO Q3H PRN 01/19/19 HYDROmorphone [Dilaudid -] 4 mg PO Q3H PRN 01/19/19 Insulin Glargine,Hum.rec.anlog [Lantus Solostar] 10 unit SQ HS 01/19/19 Insulin Lispro [Humalog] 100 unit SQ BID 01/19/19 Lacosamide [Vimpat] 100 mg PO Q12H 01/19/19 Levothyroxine [Synthroid -] 175 mcg PO DAILY 01/19/19 Multivitamin [Multiple Vitamins] 1 each PO DAILY 01/19/19 Pantoprazole Sodium [Protonix -] 40 mg PO DAILY 01/19/19 Sennosides [Senna] 2 tab PO HS 01/19/19 Spironolactone [Aldactone] 25 mg PO DAILY 01/19/19 Tamsulosin HCl [Flomax] 0.4 mg PO DAILY 01/19/19 Family Disease History - Family Disease History Family Disease History: Diabetes: Mother ( ( 70) natural causes), Other : Father ( (80s) aspiration), Mother, Brother ( alive (62) ), Sister ( alive (66) OA) Physical Exam-Neuro Vital Signs: Vital Signs Temperature 97.8 F 01/26/19 09:08 Pulse Rate 89 01/26/19 09:08 Respiratory Rate 18 01/26/19 09:08 Blood Pressure 106/72 01/26/19 09:08 O2 Sat by Pulse Oximetry (%) 99 01/26/19 09:00 Labs: CBC, BMP 01/25/19 16:40 01/25/19 16:40 INR, PTT INR 1.18 (0.83-1.09) H 01/20/19 08:44 - Neuro Exam Level Of Consciousness: Yes: Alert (mute, orientation is not clear) Speech: Other (mute, intact comprehension) Dominant Hand: Right Mini Mental Exam: Unable to test, pt. is mute Cranial Nerves II-XII Intact: No (eyes closed, when attempt to force open he resists) DTR's: 0 Left Achilles, 0 Right Achilles, 1+ Left Brachioradialis, 2+ Left Bicep , 2+ Left Tricep, 4+ Right Bicep (not allow testing due to pain) Babinski: Absent Response to light touch: Abnormal (+ hyperesthesia bilat LEs and RUE) Motor Strength: 2/5: Right Leg, Left Leg, 5/5: Left Arm Assessment/Plan Pt. with sudden unresponsiveness, brief, since he has not been able to speak and keeps eyes closed. He is also suspected to have a UTI.LFts are mildly elevated as is NH3. He likely had a seizure(possibly triggered by infection/ metabolic abn) and is now mute-ddx.includes post-ictal expressive aphasia or, very less likely an aphemia. Suggest: MRI brain(if metal plate is compatible), (has had MRI's in past without issue) cont Keppra 750mg bid , plan to DC lacosamide given elevated LFt EEG. DR LABOY
[2019-01-26] MEDS: CEFTRIAXONE 1 GM in DEXTROSE 5%-WATER - 50 ML IVPB SCH (09:40)
[2019-01-26] MEDS: ESCITALOPRAM OXALATE 10 MG TABLET (FP) PO SCH (09:40)
[2019-01-26] MEDS: PANTOPRAZOLE 40 MG TABLET (FP) PO SCH ×2 (09:40→22:02)
[2019-01-26] MEDS: MULTIVITAMINS (DAILY MVI) TABLET (FP) PO SCH (09:41)
[2019-01-26] MEDS: AMIODARONE HCL 200 MG TABLET (FP) PO SCH (09:41)
[2019-01-26] MEDS: LACOSAMIDE 50 MG TABLET PO SCH ×2 (09:41→22:04)
[2019-01-26] MEDS: CARVEDILOL 3.125 MG TABLET (FP) PO SCH (09:43)
[2019-01-26] MEDS: DUTASTERIDE 0.5 MG CAP (FP) PO SCH (09:43)
[2019-01-26] MEDS: POLYETHYLENE GLYCOL 3350 119 GM BTL PO SCH (09:44)
[2019-01-26] MEDS: ZINC OXIDE 20% TOPICAL OINTMENT 30 GM TUBE TP SCH ×2 (09:44→22:05)
[2019-01-26] MEDS: levETIRAcetam 500 MG/5 ML INJECTION VIAL IVPB SCH ×2 (11:57→22:01)
--- NOTE | 2019-01-26 12:05 | PN ---
Progress Note, Physician History of Present Illness: Pt seen and examined at bedside. He is now awake and alert. He denies shortness of breath. He does not remember what happened yesterday. - Current Medication List Current Medications: Active Medications Alprazolam (Xanax -) 1 mg PO HS PRN PRN Reason: ANXIETY Amiodarone HCl (Cordarone -) 100 mg PO DAILY [facility] Last Admin: 01/26/19 09:41 Dose: 100 mg Atorvastatin Calcium (Lipitor -) 80 mg PO HS [facility] Last Admin: 01/25/19 23:48 Dose: 80 mg Carvedilol (Coreg -) 3.125 mg PO DAILY [facility] Last Admin: 01/26/19 09:43 Dose: Not Given Dicloxacillin Sodium (Dynapen -) 500 mg PO TID [facility] Last Admin: 01/26/19 06:34 Dose: 500 mg Docusate Sodium (Colace -) 100 mg PO TID [facility] Last Admin: 01/26/19 06:34 Dose: 100 mg Dutasteride (Avodart -) 0.5 mg PO DAILY [facility] Last Admin: 01/26/19 09:43 Dose: 0.5 mg Escitalopram Oxalate (Lexapro -) 10 mg PO DAILY [facility] Last Admin: 01/26/19 09:40 Dose: 10 mg Hydrocortisone (Anusol 2.5% Hc Cream -) 1 applic TP BID [facility] Last Admin: 01/26/19 01:20 Dose: Not Given Sodium Chloride (Normal Saline -) 1,000 mls @ 100 mls/hr IV ASDIR [facility] Last Admin: 01/25/19 21:23 Dose: 100 mls/hr Ceftriaxone Sodium 1 gm/ (Dextrose) 50 mls @ 100 mls/hr IVPB DAILY [facility] Last Admin: 01/26/19 09:40 Dose: 100 mls/hr Insulin Aspart (Novolog Vial Sliding Scale -) 1 vial SQ [facility]; Protocol Last Admin: 01/26/19 06:34 Dose: Not Given Insulin Detemir (Levemir Vial) 10 units SQ [facility] Last Admin: 01/25/19 22:06 Dose: Not Given Lacosamide (Vimpat -) 100 mg PO BID [facility] Last Admin: 01/26/19 09:41 Dose: 100 mg Levetiracetam (Keppra Injection -) 750 mg IVPB BID [facility] Last Admin: 01/25/19 23:53 Dose: 750 mg Levothyroxine Sodium 100 mcg/ (Levothyroxine Sodium 75 mcg) 175 mcg PO DAILY@ 0700 [facility] Last Admin: 01/26/19 06:33 Dose: 175 mcg Multi-Ingredient Ointment (Zinc Oxide) 1 applic TP BID [facility] Last Admin: 01/26/19 09:44 Dose: 1 applic Multivitamins/Minerals/Vitamin C (Tab-A-Vit -) 1 tab PO DAILY [facility] Last Admin: 01/26/19 09:41 Dose: 1 tab Nystatin (Mycostatin Cream -) 1 applic TP BID [facility] Last Admin: 01/26/19 01:21 Dose: Not Given Pantoprazole Sodium (Protonix -) 40 mg PO BID [facility] Last Admin: 01/26/19 09:40 Dose: 40 mg Polyethylene Glycol (Miralax (For Daily Use) -) 17 gm PO DAILY [facility] Last Admin: 01/26/19 09:44 Dose: 17 grams Senna (Senna -) 2 tab PO [facility] Last Admin: 01/25/19 23:51 Dose: 2 tab Tamsulosin HCl (Flomax -) 0.8 mg PO HS [facility] Last Admin: 01/25/19 23:48 Dose: 0.8 mg Tramadol HCl (Ultram -) 50 mg PO Q8H PRN PRN Reason: PAIN LEVEL 6-10 - Objective Vital Signs: Vital Signs Temperature 97.8 F 01/26/19 09:08 Pulse Rate 89 01/26/19 09:08 Respiratory Rate 18 01/26/19 09:08 Blood Pressure 106/72 01/26/19 09:08 O2 Sat by Pulse Oximetry (%) 99 01/26/19 09:00 Constitutional: Yes: Calm Eyes: Yes: Conjunctiva Clear HENT: Yes: Atraumatic Cardiovascular: Yes: S1, S2 Respiratory: Yes: CTA Bilaterally Gastrointestinal: Yes: Soft Genitourinary: Yes: Alvarez Present Musculoskeletal: Yes: WNL Edema: No Neurological: Yes: Oriented Psychiatric: Yes: Oriented Labs: CBC, BMP 01/25/19 16:40 01/25/19 16:40 INR, PTT INR 1.18 (0.83-1.09) H 01/20/19 08:44 Problem List - Problems (1) Anemia Code(s): D64.9 - ANEMIA, UNSPECIFIED Qualifiers: Anemia type: unspecified type Qualified Code(s): D64.9 - Anemia, unspecified (2) Hyponatremia syndrome Code(s): E87.1 - HYPO-OSMOLALITY AND HYPONATREMIA (3) Atrial fibrillation Code(s): I48.91 - UNSPECIFIED ATRIAL FIBRILLATION Qualifiers: Atrial fibrillation type: persistent Qualified Code(s): I48.1 - Persistent atrial fibrillation (4) Congestive heart disease Code(s): I50.9 - HEART FAILURE, UNSPECIFIED Qualifiers: Heart failure type: combined systolic and diastolic Heart failure chronicity: acute on chronic Qualified Code(s): I50.43 - Acute on chronic combined systolic (congestive) and diastolic (congestive) heart failure Assessment/Plan Current Medications Generic Name Dose Route Start Last Admin Trade Name Freq PRN Reason Stop Dose Admin Alprazolam 1 mg 01/26/19 02:09 Xanax - PO HS PRN ANXIETY Amiodarone HCl 100 mg 01/26/19 10:00 01/26/19 09:41 Cordarone - PO 100 mg DAILY EUGENE Administration Atorvastatin Calcium 80 mg 01/25/19 22:00 01/25/19 23:48 Lipitor - PO 80 mg HS EUGENE Administration Carvedilol 3.125 mg 01/26/19 10:00 01/26/19 09:43 Coreg - PO Not Given DAILY EUGENE Dicloxacillin Sodium 500 mg 01/25/19 22:00 01/26/19 06:34 Dynapen - PO 500 mg TID EUGENE Administration Docusate Sodium 100 mg 01/25/19 22:00 01/26/19 06:34 Colace - PO 100 mg TID EUGENE Administration Dutasteride 0.5 mg 01/26/19 10:00 01/26/19 09:43 Avodart - PO 0.5 mg DAILY EUGENE Administration Escitalopram Oxalate 10 mg 01/26/19 10:00 01/26/19 09:40 Lexapro - PO 10 mg DAILY EUGENE Administration Hydrocortisone 1 applic 01/25/19 22:00 01/26/19 01:20 Anusol 2.5% Hc Cream - TP Not Given BID EUGENE Sodium Chloride 1,000 mls @ 100 mls/hr 01/25/19 17:15 01/25/19 21:23 Normal Saline - IV 100 mls/hr ASDIR EUGENE Administration Ceftriaxone Sodium 1 gm/ 50 mls @ 100 mls/hr 01/26/19 10:00 01/26/19 09:40 Dextrose IVPB 100 mls/hr DAILY EUGENE Administration Insulin Aspart 1 vial 01/25/19 22:00 01/26/19 06:34 Novolog Vial Sliding Scale - SQ Not Given ACHS EUGENE Protocol Insulin Detemir 10 units 01/25/19 22:00 01/25/19 22:06 Levemir Vial SQ Not Given HS EUGENE Lacosamide 100 mg 01/25/19 22:00 01/26/19 09:41 Vimpat - PO 100 mg BID EUGENE Administration Levetiracetam 750 mg 01/25/19 22:00 01/25/19 23:53 Keppra Injection - IVPB 750 mg BID EUGENE Administration Levothyroxine Sodium 100 mcg/ 175 mcg 01/26/19 07:00 01/26/19 06:33 Levothyroxine Sodium 75 mcg PO 175 mcg DAILY@0700 EUGENE Administration Multi-Ingredient Ointment 1 applic 01/25/19 22:00 01/26/19 09:44 Zinc Oxide TP 1 applic BID EUGENE Administration Multivitamins/Minerals/Vitamin C 1 tab 01/26/19 10:00 01/26/19 09:41 Tab-A-Vit - PO 1 tab DAILY EUGENE Administration Nystatin 1 applic 01/25/19 22:00 01/26/19 01:21 Mycostatin Cream - TP Not Given BID EUGENE Pantoprazole Sodium 40 mg 01/25/19 22:00 01/26/19 09:40 Protonix - PO 40 mg BID EUGENE Administration Polyethylene Glycol 17 gm 01/26/19 10:00 01/26/19 09:44 Miralax (For Daily Use) - PO 17 grams DAILY EUGENE Administration Senna 2 tab 01/25/19 22:00 01/25/19 23:51 Senna - PO 2 tab HS EUGENE Administration Tamsulosin HCl 0.8 mg 01/25/19 22:00 01/25/19 23:48 Flomax - PO 0.8 mg HS EUGENE Administration Tramadol HCl 50 mg 01/26/19 02:08 Ultram - PO Q8H PRN PAIN LEVEL 6-10 Impression 1. hyponatremia 2. chf 3. anemia 4. cad 5. dm 6. a-fib 7. htn 8. lethargy 9. altered mental status 10. seizure Plan - mental status is improved - check bmp - possible seizure - monitor mental status
[2019-01-26 13:34] LABS: ALK PHOS 177 U/L (45-117); ANION GAP 6 MMOL/L (8-16); BILIRUBIN,TOTAL 1.1 mg/dL (0.2-1); BLOOD UREA NITROGEN 17 mg/dL (7-18); CALCIUM 7.5 mg/dL (8.5-10.1); CHLORIDE 103 mmol/L (98-107); CO2 25 mmol/L (21-32); CREATININE 0.7 mg/dL (0.55-1.3); GLUCOSE,RANDOM 213 mg/dL (74-106); POTASSIUM 4.1 mmol/L (3.5-5.1); SGOT/AST 63 U/L (15-37); SGPT/ALT 74 U/L (13-61); SODIUM 134 mmol/L (136-145); TOT PROT 5.2 g/dl (6.4-8.2)
--- NOTE | 2019-01-26 13:42 | PN ---
Progress Note, Physician History of Present Illness: comfortable events noted from yesterday patient with no recollection - Current Medication List Current Medications: Active Medications Alprazolam (Xanax -) 1 mg PO HS PRN PRN Reason: ANXIETY Amiodarone HCl (Cordarone -) 100 mg PO DAILY [facility] Last Admin: 01/26/19 09:41 Dose: 100 mg Atorvastatin Calcium (Lipitor -) 80 mg PO HS [facility] Last Admin: 01/25/19 23:48 Dose: 80 mg Carvedilol (Coreg -) 3.125 mg PO DAILY [facility] Last Admin: 01/26/19 09:43 Dose: Not Given Dicloxacillin Sodium (Dynapen -) 500 mg PO TID [facility] Last Admin: 01/26/19 06:34 Dose: 500 mg Docusate Sodium (Colace -) 100 mg PO TID [facility] Last Admin: 01/26/19 06:34 Dose: 100 mg Dutasteride (Avodart -) 0.5 mg PO DAILY [facility] Last Admin: 01/26/19 09:43 Dose: 0.5 mg Escitalopram Oxalate (Lexapro -) 10 mg PO DAILY [facility] Last Admin: 01/26/19 09:40 Dose: 10 mg Hydrocortisone (Anusol 2.5% Hc Cream -) 1 applic TP BID [facility] Last Admin: 01/26/19 11:58 Dose: Not Given Sodium Chloride (Normal Saline -) 1,000 mls @ 100 mls/hr IV ASDIR [facility] Last Admin: 01/25/19 21:23 Dose: 100 mls/hr Ceftriaxone Sodium 1 gm/ (Dextrose) 50 mls @ 100 mls/hr IVPB DAILY [facility] Last Admin: 01/26/19 09:40 Dose: 100 mls/hr Insulin Aspart (Novolog Vial Sliding Scale -) 1 vial SQ [facility]; Protocol Last Admin: 01/26/19 12:04 Dose: 2 units Insulin Detemir (Levemir Vial) 10 units SQ [facility] Last Admin: 01/25/19 22:06 Dose: Not Given Lacosamide (Vimpat -) 100 mg PO BID [facility] Last Admin: 01/26/19 09:41 Dose: 100 mg Levetiracetam (Keppra Injection -) 750 mg IVPB BID [facility] Last Admin: 01/26/19 11:57 Dose: 750 mg Levothyroxine Sodium 100 mcg/ (Levothyroxine Sodium 75 mcg) 175 mcg PO DAILY@ 0700 [facility] Last Admin: 01/26/19 06:33 Dose: 175 mcg Multi-Ingredient Ointment (Zinc Oxide) 1 applic TP BID [facility] Last Admin: 01/26/19 09:44 Dose: 1 applic Multivitamins/Minerals/Vitamin C (Tab-A-Vit -) 1 tab PO DAILY [facility] Last Admin: 01/26/19 09:41 Dose: 1 tab Nystatin (Mycostatin Cream -) 1 applic TP BID [facility] Last Admin: 01/26/19 11:58 Dose: Not Given Pantoprazole Sodium (Protonix -) 40 mg PO BID [facility] Last Admin: 01/26/19 09:40 Dose: 40 mg Polyethylene Glycol (Miralax (For Daily Use) -) 17 gm PO DAILY [facility] Last Admin: 01/26/19 09:44 Dose: 17 grams Senna (Senna -) 2 tab PO [facility] Last Admin: 01/25/19 23:51 Dose: 2 tab Tamsulosin HCl (Flomax -) 0.8 mg PO [facility] Last Admin: 01/25/19 23:48 Dose: 0.8 mg Tramadol HCl (Ultram -) 50 mg PO Q8H PRN PRN Reason: PAIN LEVEL 6-10 - Objective Vital Signs: Vital Signs Temperature 97.8 F 01/26/19 09:08 Pulse Rate 89 01/26/19 09:08 Respiratory Rate 18 01/26/19 09:08 Blood Pressure 106/72 01/26/19 09:08 O2 Sat by Pulse Oximetry (%) 99 01/26/19 09:00 Constitutional: Yes: No Distress, Calm Cardiovascular: Yes: S1, S2 Gastrointestinal: Yes: Normal Bowel Sounds, Soft Musculoskeletal: Yes: WNL Extremities: Yes: Other Neurological: Yes: Alert Labs: CBC, BMP 01/25/19 16:40 01/26/19 12:45 INR, PTT INR 1.18 (0.83-1.09) H 01/20/19 08:44 Assessment/Plan Problem List - Problems (1) Acute anemia Code(s): D64.9 - ANEMIA, UNSPECIFIED (2) Hyponatremia syndrome Code(s): E87.1 - HYPO-OSMOLALITY AND HYPONATREMIA (3) Prophylactic measure Code(s): Z29.9 - ENCOUNTER FOR PROPHYLACTIC MEASURES, UNSPECIFIED (4) Anxiety Code(s): F41.9 - ANXIETY DISORDER, UNSPECIFIED (5) Atrial fibrillation Code(s): I48.91 - UNSPECIFIED ATRIAL FIBRILLATION Qualifiers: Atrial fibrillation type: persistent Qualified Code(s): I48.1 - Persistent atrial fibrillation (6) CAD (coronary artery disease) Code(s): I25.10 - ATHSCL HEART DISEASE OF [place] CORONARY ARTERY W/O ANG PCTRS Qualifiers: Coronary Disease-Associated Artery/Lesion type: bypass graft [place] vs. transplanted heart: [place] heart Associated angina: angina presence unspecified Qualified Code(s): I25.810 - Atherosclerosis of coronary artery bypass graft(s) without angina pectoris (7) Hypothyroidism Code(s): E03.9 - HYPOTHYROIDISM, UNSPECIFIED (8) IDDM (insulin dependent diabetes mellitus) Code(s): E11.9 - TYPE 2 DIABETES MELLITUS WITHOUT COMPLICATIONS; Z79.4 - NURSING HOME (CURRENT) USE OF INSULIN 9 uti plan continue current mgmt continue ceftriaxone will see how patient does tomorrow ]then will decide final plan
--- NOTE | 2019-01-26 14:04 | PN ---
Progress Note (short form) - Note Progress Note: pt seen/ examined events noted drowsy but arousable denies pain Vital Signs Temp 97.8 F 01/26/19 09:08 Pulse 89 01/26/19 09:08 Resp 18 01/26/19 09:08 BP 106/72 01/26/19 09:08 Pulse Ox 99 01/26/19 09:00 Intake & Output 01/25/19 01/26/19 01/26/19 23:59 11:59 23:59 Intake Total 520 1350 Output Total 650 300 Balance -130 1050 Weight 187 lb 9.6 oz Intake: IV 1000 Normal Saline - 1,000 ml 1000 @ 1000 mls/hr IV ASDIR STA Rx#:[id number] IVPB 100 Oral 520 250 Output: Urine 650 300 [place] 650 300 Other: Voiding Method Indwelling Catheter Indwelling Catheter Bowel Movement No No CBC, BMP 01/25/19 16:40 01/26/19 12:45 Physical Exam . S1 S2 Irregular Lungs decreased breath sounds Abd- soft, NT trace edema B/L Right arm-- edema decreased , hematoma less, eccyhmosis less ,not tender. Neuro- drowsy but arousable [place] + a/p clinically stable multiple problems as listed Seizure ? Neurology in case--- consultation appreciated continue present care On abx for uti -- rocephin Doxy for chronic osteo physical therapy. h/h stable restart lovenox with caution will follow discussed with nursing staff. Patient is DNR/DNI Problem List - Problems (1) Acute urinary retention Code(s): R33.8 - OTHER RETENTION OF URINE (2) Anxiety Code(s): F41.9 - ANXIETY DISORDER, UNSPECIFIED (3) Atrial fibrillation Code(s): I48.91 - UNSPECIFIED ATRIAL FIBRILLATION Qualifiers: Atrial fibrillation type: persistent Qualified Code(s): I48.1 - Persistent atrial fibrillation (4) IDDM (insulin dependent diabetes mellitus) Code(s): E11.9 - TYPE 2 DIABETES MELLITUS WITHOUT COMPLICATIONS; Z79.4 - PAGINATOR (CURRENT) USE OF INSULIN (5) S/P CABG (coronary artery bypass graft) Code(s): Z95.1 - PRESENCE OF AORTOCORONARY BYPASS GRAFT
[2019-01-26] MEDS: ENOXAPARIN NA (PORCINE) 80 MG/0.8 ML DISP.SYRIN SQ SCH ×2 (14:48→22:02)
[2019-01-26] MEDS: ATORVASTATIN CA 80 MG TABLET (FP) PO SCH (22:02)
[2019-01-26] MEDS: TAMSULOSIN HCL 0.4 MG CAP PO SCH (22:02)
[2019-01-26] MEDS: SENNOSIDES 8.6MG TABLET (FP) PO SCH (22:03)
[2019-01-26] MEDS: INSULIN (LEVEMIR) 100 UNITS/ML UNITS SQ SCH (22:17)
[2019-01-27] MEDS: DOCUSATE SODIUM 100 MG CAPSULE (FP) PO SCH ×3 (06:01→21:59)
[2019-01-27] MEDS: INSULIN SLIDING SCALE (NOVOLOG) 1 VIAL SQ SCH ×4 (06:02→22:24)
[2019-01-27] MEDS: DICLOXACILLIN SODIUM 250 MG CAPSULE PO SCH ×3 (06:02→22:00)
[2019-01-27] MEDS ORDERED: LEVOTHYROXINE NA 100 MCG TABLET (FP) ONE (06:03)
[2019-01-27] MEDS ORDERED: LEVOTHYROXINE NA 75 MCG TABLET (FP) ONE (06:04)
[2019-01-27] MEDS: LEVOTHYROXINE 100 MCG, LEVOTHYROXINE 75 MCG PO SCH (06:04)
[2019-01-27 07:21] LABS: BASO % 1.3 % (0-2.0); EOS % 2.3 % (0-4.5); HEMATOCRIT 28.2 % (35.4-49); HEMOGLOBIN 9.5 GM/dL (11.7-16.9); LYMPH % 10.2 % (8-40); MCH 31.5 pg (25.7-33.7); MCHC 33.7 g/dl (32.0-35.9); MEAN CELL VOLUME 93.6 fl (80-96); MONO % 8.5 % (3.8-10.2); NEUT % 77.7 % (42.8-82.8); PLATELET COUNT 192 K/MM3 (134-434); RBC 3.01 M/mm3 (4.00-5.60); RDW 18.6 % (11.9-15.9); WHITE BLOOD COUNT 7.2 K/mm3 (4.0-10.0)
[2019-01-27 07:41] LABS: ALBUMIN 1.9 g/dl (3.4-5.0); ALK PHOS 164 U/L (45-117); ANION GAP 6 MMOL/L (8-16); BILIRUBIN,TOTAL 1.4 mg/dL (0.2-1); BLOOD UREA NITROGEN 14 mg/dL (7-18); CALCIUM 7.5 mg/dL (8.5-10.1); CHLORIDE 105 mmol/L (98-107); CO2 28 mmol/L (21-32); CREATININE 0.6 mg/dL (0.55-1.3); GLUCOSE,RANDOM 92 mg/dL (74-106); POTASSIUM 3.7 mmol/L (3.5-5.1); SGOT/AST 60 U/L (15-37); SGPT/ALT 67 U/L (13-61); SODIUM 139 mmol/L (136-145); TOT PROT 4.8 g/dl (6.4-8.2)
[2019-01-27] MEDS ORDERED: INSULIN (LEVEMIR) 100 UNITS/ML UNITS SQ ONE (07:56)
[2019-01-27] MEDS ORDERED: INSULIN SLIDING SCALE (NOVOLOG) 1 VIAL SQ ONE (07:56)
--- NOTE | 2019-01-27 09:52 | PN ---
Progress Note (short form) - Note Progress Note: No complaints Feels well at baseline Vital Signs - 24 hr 01/26/19 01/26/19 01/26/19 14:12 18:17 21:00 Temperature 98.2 F 98.3 F Pulse Rate 89 77 Respiratory 18 18 16 Rate Blood Pressure 92/59 L 117/55 L O2 Sat by Pulse 99 Oximetry (%) 01/26/19 01/27/19 01/27/19 22:00 02:00 06:09 Temperature 98.1 F 97.7 F 97.8 F Pulse Rate 91 H 75 78 Respiratory 16 20 18 Rate Blood Pressure 118/67 101/66 101/46 L O2 Sat by Pulse Oximetry (%) Current Medications Generic Name Dose Route Start Last Admin Trade Name Freq PRN Reason Stop Dose Admin Alprazolam 1 mg 01/26/19 02:09 Xanax - PO HS PRN ANXIETY Amiodarone HCl 100 mg 01/26/19 10:00 01/26/19 09:41 Cordarone - PO 100 mg DAILY EUGENE Administration Atorvastatin Calcium 80 mg 01/25/19 22:00 01/26/19 22:02 Lipitor - PO 80 mg HS EUGENE Administration Carvedilol 3.125 mg 01/26/19 10:00 01/26/19 09:43 Coreg - PO Not Given DAILY EUGENE Dicloxacillin Sodium 500 mg 01/25/19 22:00 01/27/19 06:02 Dynapen - PO 500 mg TID EUGENE Administration Docusate Sodium 100 mg 01/25/19 22:00 01/27/19 06:01 Colace - PO 100 mg TID EUGENE Administration Dutasteride 0.5 mg 01/26/19 10:00 01/26/19 09:43 Avodart - PO 0.5 mg DAILY EUGENE Administration Enoxaparin Sodium 80 mg 01/26/19 14:15 01/26/19 22:02 Lovenox - SQ 80 mg BID EUGENE Administration Escitalopram Oxalate 10 mg 01/26/19 10:00 01/26/19 09:40 Lexapro - PO 10 mg DAILY EUGENE Administration Hydrocortisone 1 applic 01/25/19 22:00 01/26/19 22:18 Anusol 2.5% Hc Cream - TP Not Given BID EUGENE Ceftriaxone Sodium 1 gm/ 50 mls @ 100 mls/hr 01/26/19 10:00 01/26/19 09:40 Dextrose IVPB 100 mls/hr DAILY EUGENE Administration Insulin Aspart 1 vial 01/25/19 22:00 01/27/19 06:02 Novolog Vial Sliding Scale - SQ Not Given ACHS [facility] Protocol Insulin Detemir 10 units 01/25/19 22:00 01/26/19 22:17 Levemir Vial SQ 10 units HS EUGENE Administration Lacosamide 100 mg 01/25/19 22:00 01/26/19 22:04 Vimpat - PO 100 mg BID EUGENE Administration Levetiracetam 750 mg 01/25/19 22:00 01/26/19 22:01 Keppra Injection - IVPB 750 mg BID EUGENE Administration Levothyroxine Sodium 100 mcg/ 175 mcg 01/26/19 07:00 01/27/19 06:04 Levothyroxine Sodium 75 mcg PO 175 mcg DAILY@0700 EUGENE Administration Multi-Ingredient Ointment 1 applic 01/25/19 22:00 01/26/19 22:05 Zinc Oxide TP 1 applic BID EUGENE Administration Multivitamins/Minerals/Vitamin C 1 tab 01/26/19 10:00 01/26/19 09:41 Tab-A-Vit - PO 1 tab DAILY EUGENE Administration Nystatin 1 applic 01/25/19 22:00 01/26/19 22:03 Mycostatin Cream - TP Not Given BID EUGENE Pantoprazole Sodium 40 mg 01/25/19 22:00 01/26/19 22:02 Protonix - PO 40 mg BID EUGENE Administration Polyethylene Glycol 17 gm 01/26/19 10:00 01/26/19 09:44 Miralax (For Daily Use) - PO 17 grams DAILY EUGENE Administration Senna 2 tab 01/25/19 22:00 01/26/19 22:03 Senna - PO 2 tab HS EUGENE Administration Tamsulosin HCl 0.8 mg 01/25/19 22:00 01/26/19 22:02 Flomax - PO 0.8 mg HS EUGENE Administration Tramadol HCl 50 mg 01/26/19 02:08 Ultram - PO Q8H PRN PAIN LEVEL 6-10 Laboratory Results - last 24 hr 01/26/19 01/26/19 01/26/19 12:01 12:45 16:49 WBC RBC Hgb Hct MCV MCH MCHC RDW Plt Count MPV Absolute Neuts (auto) Neutrophils % Lymphocytes % Monocytes % Eosinophils % Basophils % Nucleated RBC % Sodium 134 L Potassium 4.1 Chloride 103 Carbon Dioxide 25 Anion Gap 6 L BUN 17 Creatinine 0.7 Creat Clearance w eGFR 109.07 POC Glucometer 172 142 Random Glucose 213 H Calcium 7.5 L Total Bilirubin 1.1 H AST 63 H ALT 74 H Alkaline Phosphatase 177 H Total Protein 5.2 L Albumin 2.0 L 01/26/19 01/27/19 01/27/19 22:00 05:55 06:30 WBC 7.2 RBC 3.01 L Hgb 9.5 L Hct 28.2 L MCV 93.6 MCH 31.5 MCHC 33.7 RDW 18.6 H Plt Count 192 MPV 8.0 Absolute Neuts (auto) 5.6 Neutrophils % 77.7 Lymphocytes % 10.2 D Monocytes % 8.5 Eosinophils % 2.3 D Basophils % 1.3 Nucleated RBC % 0 Sodium Potassium Chloride Carbon Dioxide Anion Gap BUN Creatinine Creat Clearance w eGFR POC Glucometer 131 101 Random Glucose Calcium Total Bilirubin AST ALT Alkaline Phosphatase Total Protein Albumin 01/27/19 06:30 WBC RBC Hgb Hct MCV MCH MCHC RDW Plt Count MPV Absolute Neuts (auto) Neutrophils % Lymphocytes % Monocytes % Eosinophils % Basophils % Nucleated RBC % Sodium 139 Potassium 3.7 Chloride 105 Carbon Dioxide 28 Anion Gap 6 L BUN 14 Creatinine 0.6 Creat Clearance w eGFR 130.30 POC Glucometer Random Glucose 92 Calcium 7.5 L Total Bilirubin 1.4 H AST 60 H ALT 67 H Alkaline Phosphatase 164 H Total Protein 4.8 L Albumin 1.9 L s1 s2 RRR Lungs clear Abd- soft, NT trce edema Left knee swollen PLAN Awaiting MRI result On abx EEG done continue with meds Pt eval Problem List - Problems (1) Acute anemia Code(s): D64.9 - ANEMIA, UNSPECIFIED (2) Hyponatremia syndrome Code(s): E87.1 - HYPO-OSMOLALITY AND HYPONATREMIA (3) Atrial fibrillation Code(s): I48.91 - UNSPECIFIED ATRIAL FIBRILLATION Qualifiers: Atrial fibrillation type: persistent Qualified Code(s): I48.1 - Persistent atrial fibrillation (4) Congestive heart disease Code(s): I50.9 - HEART FAILURE, UNSPECIFIED Qualifiers: Heart failure type: combined systolic and diastolic Heart failure chronicity: acute on chronic Qualified Code(s): I50.43 - Acute on chronic combined systolic (congestive) and diastolic (congestive) heart failure (5) HTN (hypertension) Code(s): I10 - ESSENTIAL (PRIMARY) HYPERTENSION Qualifiers: Hypertension type: essential hypertension Qualified Code(s): I10 - Essential (primary) hypertension (6) IDDM (insulin dependent diabetes mellitus) Code(s): E11.9 - TYPE 2 DIABETES MELLITUS WITHOUT COMPLICATIONS; Z79.4 - ASSISTED (CURRENT) USE OF INSULIN (7) Intertrochanteric fracture Code(s): S72.143A - DISPLACED INTERTROCHANTERIC FRACTURE OF UNSP FEMUR, INIT Qualifiers: Encounter type: initial encounter Fracture type: closed Fracture alignment: nondisplaced Laterality: left Qualified Code(s): S72.145A - Nondisplaced intertrochanteric fracture of left femur, initial encounter for closed fracture
[2019-01-27] MEDS: HYDROCORTISONE 2.5% TOPICAL CREAM 30 GM TUBE TP SCH ×2 (11:00→22:10)
[2019-01-27] MEDS ORDERED: DEXTROSE 5%-WATER - 50 ML IVPB ONE (11:21)
[2019-01-27] MEDS ORDERED: PT OWN MED DRAWER 7, Y5N ONE ×3 (11:21→21:50)
[2019-01-27] MEDS ORDERED: cefTRIAXone SODIUM 1 GM VIAL ONE (11:21)
[2019-01-27] MEDS: NYSTATIN 100,000 UNIT/GM TOPICAL CREAM 15 GM TUBE TP SCH ×2 (12:00→22:10)
[2019-01-27] MEDS: levETIRAcetam 500 MG/5 ML INJECTION VIAL IVPB SCH ×2 (12:15→22:00)
--- NOTE | 2019-01-27 12:23 | PN ---
Progress Note, Physician History of Present Illness: Pt seen and examined at bedside. He is awake and alert. He denies shortness of breath. - Current Medication List Current Medications: Active Medications Alprazolam (Xanax -) 1 mg PO HS PRN PRN Reason: ANXIETY Amino Acids (Prosource No Carb Liquid Pkt) 30 ml PO BID@0800,1730 [facility] Amiodarone HCl (Cordarone -) 100 mg PO DAILY [facility] Last Admin: 01/26/19 09:41 Dose: 100 mg Atorvastatin Calcium (Lipitor -) 80 mg PO HS [facility] Last Admin: 01/26/19 22:02 Dose: 80 mg Carvedilol (Coreg -) 3.125 mg PO DAILY [facility] Last Admin: 01/26/19 09:43 Dose: Not Given Dicloxacillin Sodium (Dynapen -) 500 mg PO TID [facility] Last Admin: 01/27/19 06:02 Dose: 500 mg Docusate Sodium (Colace -) 100 mg PO TID [facility] Last Admin: 01/27/19 06:01 Dose: 100 mg Dutasteride (Avodart -) 0.5 mg PO DAILY [facility] Last Admin: 01/26/19 09:43 Dose: 0.5 mg Enoxaparin Sodium (Lovenox -) 80 mg SQ BID [facility] Last Admin: 01/26/19 22:02 Dose: 80 mg Escitalopram Oxalate (Lexapro -) 10 mg PO DAILY [facility] Last Admin: 01/26/19 09:40 Dose: 10 mg Hydrocortisone (Anusol 2.5% Hc Cream -) 1 applic TP BID [facility] Last Admin: 01/26/19 22:18 Dose: Not Given Ceftriaxone Sodium 1 gm/ (Dextrose) 50 mls @ 100 mls/hr IVPB DAILY [facility] Last Admin: 01/26/19 09:40 Dose: 100 mls/hr Insulin Aspart (Novolog Vial Sliding Scale -) 1 vial SQ [facility]; Protocol Last Admin: 01/27/19 06:02 Dose: Not Given Insulin Detemir (Levemir Vial) 10 units SQ [facility] Last Admin: 01/26/19 22:17 Dose: 10 units Lacosamide (Vimpat -) 100 mg PO BID [facility] Last Admin: 01/26/19 22:04 Dose: 100 mg Levetiracetam (Keppra Injection -) 750 mg IVPB BID [facility] Last Admin: 01/26/19 22:01 Dose: 750 mg Levothyroxine Sodium 100 mcg/ (Levothyroxine Sodium 75 mcg) 175 mcg PO DAILY@ 0700 [facility] Last Admin: 01/27/19 06:04 Dose: 175 mcg Multi-Ingredient Ointment (Zinc Oxide) 1 applic TP BID [facility] Last Admin: 01/26/19 22:05 Dose: 1 applic Multivitamins/Minerals/Vitamin C (Tab-A-Vit -) 1 tab PO DAILY [facility] Last Admin: 01/26/19 09:41 Dose: 1 tab Nystatin (Mycostatin Cream -) 1 applic TP BID [facility] Last Admin: 01/26/19 22:03 Dose: Not Given Pantoprazole Sodium (Protonix -) 40 mg PO BID [facility] Last Admin: 01/26/19 22:02 Dose: 40 mg Polyethylene Glycol (Miralax (For Daily Use) -) 17 gm PO DAILY [facility] Last Admin: 01/26/19 09:44 Dose: 17 grams Senna (Senna -) 2 tab PO [facility] Last Admin: 01/26/19 22:03 Dose: 2 tab Tamsulosin HCl (Flomax -) 0.8 mg PO [facility] Last Admin: 01/26/19 22:02 Dose: 0.8 mg Tramadol HCl (Ultram -) 50 mg PO Q8H PRN PRN Reason: PAIN LEVEL 6-10 - Objective Vital Signs: Vital Signs Temperature 97.5 F L 01/27/19 10:00 Pulse Rate 80 01/27/19 10:00 Respiratory Rate 18 01/27/19 10:00 Blood Pressure 100/61 01/27/19 10:00 O2 Sat by Pulse Oximetry (%) 100 01/27/19 09:00 Constitutional: Yes: Calm Eyes: Yes: Conjunctiva Clear HENT: Yes: Atraumatic Cardiovascular: Yes: S1, S2 Respiratory: Yes: CTA Bilaterally, On Nasal O2 Gastrointestinal: Yes: Soft Genitourinary: Yes: Alvarez Present Musculoskeletal: Yes: Muscle Weakness Edema: No Neurological: Yes: Oriented Psychiatric: Yes: Oriented Labs: CBC, BMP 01/27/19 06:30 01/27/19 06:30 INR, PTT INR 1.18 (0.83-1.09) H 01/20/19 08:44 Problem List - Problems (1) Anemia Code(s): D64.9 - ANEMIA, UNSPECIFIED Qualifiers: Anemia type: unspecified type Qualified Code(s): D64.9 - Anemia, unspecified (2) Hyponatremia syndrome Code(s): E87.1 - HYPO-OSMOLALITY AND HYPONATREMIA (3) Atrial fibrillation Code(s): I48.91 - UNSPECIFIED ATRIAL FIBRILLATION Qualifiers: Atrial fibrillation type: persistent Qualified Code(s): I48.1 - Persistent atrial fibrillation (4) Congestive heart disease Code(s): I50.9 - HEART FAILURE, UNSPECIFIED Qualifiers: Heart failure type: combined systolic and diastolic Heart failure chronicity: acute on chronic Qualified Code(s): I50.43 - Acute on chronic combined systolic (congestive) and diastolic (congestive) heart failure Assessment/Plan Current Medications Generic Name Dose Route Start Last Admin Trade Name Freq PRN Reason Stop Dose Admin Alprazolam 1 mg 01/26/19 02:09 Xanax - PO HS PRN ANXIETY Amino Acids 30 ml 01/27/19 17:30 Prosource No Carb Liquid Pkt PO BID@0800,1730 [facility] Amiodarone HCl 100 mg 01/26/19 10:00 01/26/19 09:41 Cordarone - PO 100 mg DAILY EUGENE Administration Atorvastatin Calcium 80 mg 01/25/19 22:00 01/26/19 22:02 Lipitor - PO 80 mg HS EUGENE Administration Carvedilol 3.125 mg 01/26/19 10:00 01/26/19 09:43 Coreg - PO Not Given DAILY EUGENE Dicloxacillin Sodium 500 mg 01/25/19 22:00 01/27/19 06:02 Dynapen - PO 500 mg TID EUGENE Administration Docusate Sodium 100 mg 01/25/19 22:00 01/27/19 06:01 Colace - PO 100 mg TID EUGENE Administration Dutasteride 0.5 mg 01/26/19 10:00 01/26/19 09:43 Avodart - PO 0.5 mg DAILY EUGENE Administration Enoxaparin Sodium 80 mg 01/26/19 14:15 01/26/19 22:02 Lovenox - SQ 80 mg BID EUGEEN Administration Escitalopram Oxalate 10 mg 01/26/19 10:00 01/26/19 09:40 Lexapro - PO 10 mg DAILY EUGENE Administration Hydrocortisone 1 applic 01/25/19 22:00 01/26/19 22:18 Anusol 2.5% Hc Cream - TP Not Given BID EUGENE Ceftriaxone Sodium 1 gm/ 50 mls @ 100 mls/hr 01/26/19 10:00 01/26/19 09:40 Dextrose IVPB 100 mls/hr DAILY EUGENE Administration Insulin Aspart 1 vial 01/25/19 22:00 01/27/19 06:02 Novolog Vial Sliding Scale - SQ Not Given ACHS [facility] Protocol Insulin Detemir 10 units 01/25/19 22:00 01/26/19 22:17 Levemir Vial SQ 10 units HS EUGENE Administration Lacosamide 100 mg 01/25/19 22:00 01/26/19 22:04 Vimpat - PO 100 mg BID EUGENE Administration Levetiracetam 750 mg 01/25/19 22:00 01/26/19 22:01 Keppra Injection - IVPB 750 mg BID EUGENE Administration Levothyroxine Sodium 100 mcg/ 175 mcg 01/26/19 07:00 01/27/19 06:04 Levothyroxine Sodium 75 mcg PO 175 mcg DAILY@0700 EUGENE Administration Multi-Ingredient Ointment 1 applic 01/25/19 22:00 01/26/19 22:05 Zinc Oxide TP 1 applic BID EUGENE Administration Multivitamins/Minerals/Vitamin C 1 tab 01/26/19 10:00 01/26/19 09:41 Tab-A-Vit - PO 1 tab DAILY EUGENE Administration Nystatin 1 applic 01/25/19 22:00 01/26/19 22:03 Mycostatin Cream - TP Not Given BID EUGENE Pantoprazole Sodium 40 mg 01/25/19 22:00 01/26/19 22:02 Protonix - PO 40 mg BID EUGENE Administration Polyethylene Glycol 17 gm 01/26/19 10:00 01/26/19 09:44 Miralax (For Daily Use) - PO 17 grams DAILY EUGENE Administration Senna 2 tab 01/25/19 22:00 01/26/19 22:03 Senna - PO 2 tab HS EUGENE Administration Tamsulosin HCl 0.8 mg 01/25/19 22:00 01/26/19 22:02 Flomax - PO 0.8 mg HS EUGENE Administration Tramadol HCl 50 mg 01/26/19 02:08 Ultram - PO Q8H PRN PAIN LEVEL 6-10 Impression 1. hyponatremia 2. chf 3. anemia 4. cad 5. dm 6. a-fib 7. htn 8. lethargy 9. altered mental status 10. seizure Plan - sodium stable - bp improving - diuretics on hold for now - monitor volume status - repeat bmp in am
[2019-01-27] MEDS: DUTASTERIDE 0.5 MG CAP (FP) PO SCH (12:27)
[2019-01-27] MEDS: CARVEDILOL 3.125 MG TABLET (FP) PO SCH (12:28)
[2019-01-27] MEDS: MULTIVITAMINS (DAILY MVI) TABLET (FP) PO SCH (12:28)
[2019-01-27] MEDS: ESCITALOPRAM OXALATE 10 MG TABLET (FP) PO SCH (12:28)
[2019-01-27] MEDS: AMIODARONE HCL 200 MG TABLET (FP) PO SCH (12:28)
[2019-01-27] MEDS: POLYETHYLENE GLYCOL 3350 119 GM BTL PO SCH (12:31)
[2019-01-27] MEDS: ENOXAPARIN NA (PORCINE) 80 MG/0.8 ML DISP.SYRIN SQ SCH ×2 (12:31→21:59)
[2019-01-27] MEDS: PANTOPRAZOLE 40 MG TABLET (FP) PO SCH ×2 (12:32→21:59)
[2019-01-27] MEDS: ZINC OXIDE 20% TOPICAL OINTMENT 30 GM TUBE TP SCH ×2 (12:32→22:09)
[2019-01-27] MEDS: LACOSAMIDE 50 MG TABLET PO SCH ×2 (12:33→21:59)
[2019-01-27] MEDS: CEFTRIAXONE 1 GM in DEXTROSE 5%-WATER - 50 ML IVPB SCH (13:15)
--- NOTE | 2019-01-27 15:11 | PN ---
Progress Note, Physician History of Present Illness: stable mental status still confused neuro on board - Current Medication List Current Medications: Active Medications Alprazolam (Xanax -) 1 mg PO HS PRN PRN Reason: ANXIETY Amino Acids (Prosource No Carb Liquid Pkt) 30 ml PO BID@0800,1730 [facility] Amiodarone HCl (Cordarone -) 100 mg PO DAILY [facility] Last Admin: 01/27/19 12:28 Dose: 100 mg Atorvastatin Calcium (Lipitor -) 80 mg PO HS [facility] Last Admin: 01/26/19 22:02 Dose: 80 mg Carvedilol (Coreg -) 3.125 mg PO DAILY [facility] Last Admin: 01/27/19 12:28 Dose: 3.125 mg Dicloxacillin Sodium (Dynapen -) 500 mg PO TID [facility] Last Admin: 01/27/19 13:49 Dose: 500 mg Docusate Sodium (Colace -) 100 mg PO TID [facility] Last Admin: 01/27/19 13:52 Dose: Not Given Dutasteride (Avodart -) 0.5 mg PO DAILY [facility] Last Admin: 01/27/19 12:27 Dose: 0.5 mg Enoxaparin Sodium (Lovenox -) 80 mg SQ BID [facility] Last Admin: 01/27/19 12:31 Dose: 80 mg Escitalopram Oxalate (Lexapro -) 10 mg PO DAILY [facility] Last Admin: 01/27/19 12:28 Dose: 10 mg Hydrocortisone (Anusol 2.5% Hc Cream -) 1 applic TP BID [facility] Last Admin: 01/27/19 11:00 Dose: Not Given Ceftriaxone Sodium 1 gm/ (Dextrose) 50 mls @ 100 mls/hr IVPB DAILY [facility] Last Admin: 01/27/19 13:15 Dose: 100 mls/hr Insulin Aspart (Novolog Vial Sliding Scale -) [address] [facility]; Protocol Last Admin: 01/27/19 12:19 Dose: Not Given Insulin Detemir (Levemir Vial) 10 units SQ [facility] Last Admin: 01/26/19 22:17 Dose: 10 units Lacosamide (Vimpat -) 100 mg PO BID [facility] Last Admin: 01/27/19 12:33 Dose: 100 mg Levetiracetam (Keppra Injection -) 750 mg IVPB BID [facility] Last Admin: 01/27/19 12:15 Dose: 750 mg Levothyroxine Sodium 100 mcg/ (Levothyroxine Sodium 75 mcg) 175 mcg PO DAILY@ 0700 [facility] Last Admin: 01/27/19 06:04 Dose: 175 mcg Multi-Ingredient Ointment (Zinc Oxide) 1 applic TP BID [facility] Last Admin: 01/27/19 12:32 Dose: 1 applic Multivitamins/Minerals/Vitamin C (Tab-A-Vit -) 1 tab PO DAILY [facility] Last Admin: 01/27/19 12:28 Dose: 1 tab Nystatin (Mycostatin Cream -) 1 applic TP BID [facility] Last Admin: 01/27/19 12:00 Dose: Not Given Pantoprazole Sodium (Protonix -) 40 mg PO BID [facility] Last Admin: 01/27/19 12:32 Dose: 40 mg Polyethylene Glycol (Miralax (For Daily Use) -) 17 gm PO DAILY [facility] Last Admin: 01/27/19 12:31 Dose: Not Given Senna (Senna -) 2 tab PO [facility] Last Admin: 01/26/19 22:03 Dose: 2 tab Tamsulosin HCl (Flomax -) 0.8 mg PO [facility] Last Admin: 01/26/19 22:02 Dose: 0.8 mg Tramadol HCl (Ultram -) 50 mg PO Q8H PRN PRN Reason: PAIN LEVEL 6-10 - Objective Vital Signs: Vital Signs Temperature 98.2 F 01/27/19 14:02 Pulse Rate 72 01/27/19 14:02 Respiratory Rate 16 01/27/19 14:02 Blood Pressure 96/61 01/27/19 14:02 O2 Sat by Pulse Oximetry (%) 100 01/27/19 09:00 Constitutional: Yes: No Distress, Calm Cardiovascular: Yes: S1, S2 Respiratory: Yes: Regular, CTA Bilaterally Gastrointestinal: Yes: Normal Bowel Sounds, Soft Genitourinary: Yes: WNL Musculoskeletal: Yes: WNL Extremities: Yes: WNL Neurological: Yes: Alert, Confusion Psychiatric: Yes: Alert Labs: CBC, BMP 01/27/19 06:30 01/27/19 06:30 INR, PTT INR 1.18 (0.83-1.09) H 01/20/19 08:44 Assessment/Plan Problem List - Problems (1) Acute anemia Code(s): D64.9 - ANEMIA, UNSPECIFIED (2) Hyponatremia syndrome Code(s): E87.1 - HYPO-OSMOLALITY AND HYPONATREMIA (3) Prophylactic measure Code(s): Z29.9 - ENCOUNTER FOR PROPHYLACTIC MEASURES, UNSPECIFIED (4) Anxiety Code(s): F41.9 - ANXIETY DISORDER, UNSPECIFIED (5) Atrial fibrillation Code(s): I48.91 - UNSPECIFIED ATRIAL FIBRILLATION Qualifiers: Atrial fibrillation type: persistent Qualified Code(s): I48.1 - Persistent atrial fibrillation (6) CAD (coronary artery disease) Code(s): I25.10 - ATHSCL HEART DISEASE OF [place] CORONARY ARTERY W/O ANG PCTRS Qualifiers: Coronary Disease-Associated Artery/Lesion type: bypass graft [place] vs. transplanted heart: [place] heart Associated angina: angina presence unspecified Qualified Code(s): I25.810 - Atherosclerosis of coronary artery bypass graft(s) without angina pectoris (7) Hypothyroidism Code(s): E03.9 - HYPOTHYROIDISM, UNSPECIFIED (8) IDDM (insulin dependent diabetes mellitus) Code(s): E11.9 - TYPE 2 DIABETES MELLITUS WITHOUT COMPLICATIONS; Z79.4 - [facility] (CURRENT) USE OF INSULIN 9 uti plan continue current mgmt will stop abx and monitor
[2019-01-27] MEDS: AMINO ACIDS/PROTEIN HYDROLYS 30 ML LIQUID.PKT PO SCH (17:55)
--- NOTE | 2019-01-27 20:15 | PN ---
Progress Note (short form) - Note Progress Note: Pts. condition improved, he is awake, alert, converses well, fluent speech/no paraphasic errors. No further seizures. MRI Brain- old left frontal encephalomalacia and ?/ isodense meningioma along left post.frontal encephalomalacia.(no mass effect) by report. Suggest: Improved, no new ischemic event, the isodense meningioma probably a residual-no intervention required. would reduce lacosamide to 100mg daily( taper after a week. If he has another sz. would increase Keppra to 1000mg bid. Thank you Fer Shea MD'
[2019-01-27] MEDS: ATORVASTATIN CA 80 MG TABLET (FP) PO SCH (21:59)
[2019-01-27] MEDS: SENNOSIDES 8.6MG TABLET (FP) PO SCH (21:59)
[2019-01-27] MEDS: TAMSULOSIN HCL 0.4 MG CAP PO SCH (21:59)
[2019-01-27] MEDS: INSULIN (LEVEMIR) 100 UNITS/ML UNITS SQ SCH (22:24)
[2019-01-28 02:08] LABS: HYALINE CASTS 6 /hpf (0-8); PH,URINE 5.5 (5.0-8.0); URINE APPEARANCE CLEAR; URINE BACTERIA 0.3 /hpf (NEGATIVE); URINE BILIRUBIN 1+ (NEGATIVE); URINE COLOR DK YELLOW; URINE GLUCOSE (UA) NEGATIVE (NEGATIVE); URINE KETONE NEGATIVE (NEGATIVE); URINE LEUK ESTERASE TRACE (NEGATIVE); URINE NITRITE NEGATIVE (NEGATIVE); URINE PROTEIN TRACE (NEGATIVE); URINE RBC 2 /hpf (0-4); URINE WBC 2 /hpf (0-5)
[2019-01-28 02:57] LABS: URINE CRYSTALS 0 /hpf; YEAST 0 (NEGATIVE)
[2019-01-28] MEDS ORDERED: PT OWN MED DRAWER 7, Y5N ONE ×3 (05:58→15:07)
[2019-01-28] MEDS ORDERED: LEVOTHYROXINE NA 75 MCG TABLET (FP) ONE (05:58)
[2019-01-28] MEDS ORDERED: LEVOTHYROXINE NA 100 MCG TABLET (FP) ONE (05:58)
[2019-01-28] MEDS: INSULIN SLIDING SCALE (NOVOLOG) 1 VIAL SQ SCH ×3 (06:08→17:32)
[2019-01-28] MEDS: DOCUSATE SODIUM 100 MG CAPSULE (FP) PO SCH ×2 (06:15→14:12)
[2019-01-28] MEDS: LEVOTHYROXINE 100 MCG, LEVOTHYROXINE 75 MCG PO SCH (06:15)
[2019-01-28] MEDS: DICLOXACILLIN SODIUM 250 MG CAPSULE PO SCH ×2 (06:15→14:00)
[2019-01-28] MEDS: AMINO ACIDS/PROTEIN HYDROLYS 30 ML LIQUID.PKT PO SCH ×2 (08:20→17:33)
[2019-01-28] MEDS ORDERED: DEXTROSE 5%-WATER - 50 ML IVPB ONE (09:36)
[2019-01-28] MEDS ORDERED: cefTRIAXone SODIUM 1 GM VIAL ONE (09:36)
[2019-01-28] MEDS: CEFTRIAXONE 1 GM in DEXTROSE 5%-WATER - 50 ML IVPB SCH (09:43)
[2019-01-28] MEDS: AMIODARONE HCL 200 MG TABLET (FP) PO SCH (09:45)
[2019-01-28] MEDS: CARVEDILOL 3.125 MG TABLET (FP) PO SCH (09:46)
[2019-01-28] MEDS: ENOXAPARIN NA (PORCINE) 80 MG/0.8 ML DISP.SYRIN SQ SCH (09:52)
[2019-01-28] MEDS: levETIRAcetam 500 MG/5 ML INJECTION VIAL IVPB SCH (09:53)
[2019-01-28] MEDS: PANTOPRAZOLE 40 MG TABLET (FP) PO SCH (09:53)
[2019-01-28] MEDS: MULTIVITAMINS (DAILY MVI) TABLET (FP) PO SCH (09:53)
[2019-01-28] MEDS: ESCITALOPRAM OXALATE 10 MG TABLET (FP) PO SCH (09:53)
[2019-01-28] MEDS: LACOSAMIDE 50 MG TABLET PO SCH (09:53)
[2019-01-28] MEDS: POLYETHYLENE GLYCOL 3350 119 GM BTL PO SCH (10:02)
[2019-01-28] MEDS: NYSTATIN 100,000 UNIT/GM TOPICAL CREAM 15 GM TUBE TP SCH (10:02)
[2019-01-28] MEDS: ZINC OXIDE 20% TOPICAL OINTMENT 30 GM TUBE TP SCH (10:05)
[2019-01-28] MEDS: DUTASTERIDE 0.5 MG CAP (FP) PO SCH (10:15)
--- NOTE | 2019-01-28 10:18 | DS ---
Physical Examination Vital Signs: Vital Signs Temperature 98.1 F 01/28/19 06:00 Pulse Rate 77 01/28/19 06:00 Respiratory Rate 18 01/28/19 06:00 Blood Pressure 102/52 L 01/28/19 06:00 O2 Sat by Pulse Oximetry (%) 100 01/27/19 21:00 Constitutional: Yes: No Distress, Calm Cardiovascular: Yes: Regular Rate and Rhythm Respiratory: Yes: Diminished Gastrointestinal: Yes: Normal Bowel Sounds, Soft. No: Tenderness Extremities: Yes: Other (left knee effusion) Edema: Yes Edema: LLE: Trace, RLE: Trace Labs: CBC, BMP 01/27/19 06:30 01/27/19 06:30 Discharge Summary Reason For Visit: ANEMIA Current Active Problems Acute anemia (Acute) Acute urinary retention (Acute) Anemia (Acute) Hyponatremia syndrome (Acute) Prophylactic measure (Acute) Unintentional weight loss (Acute) Hospital Course: History-- - Admission Chief Complaint: Sent from Rehab for low H/H History of Present Illness: 78 year old M with hx CAD s/p 4V CABG, pafib, htn, hld, systolic CHF, hypothyroidism, DMII, Chronic osteomyelitis, and parietal meningioma (s/p resection 2001) [facility] for evaluation of acute anemia (hgb 5.9). Mr. Lackey's protracted health problems started on dec 2018 when he sustained a mechanical fall, landing on left hip resulting in left greater trochanter fracture on xray and CT pelvis. Pt was evaluated by ortho and no surgical intervention was recommended. Pt was discharged to [facility] for acute rehabilitation. Pt is bed bound since his fall with resultant fracture. He reports that early in his rehab course at [facility] he experienced acute dyspnea and was taken to [facility] where he was diagnosed with a PE and LLE DVT. He was discharged back to [facility] on Lovenox 80mg BID. On the morning of 01/19, routine labs at [facility] revealed hgb 5.9, pt opted to return to [facility] for evaluation instead of [facility] since most of his providers are located at this facility. At baseline, his hgb is 11. In ED, pt was noted to have H/H 6.6/19.0. He was transfused 1unit PRBC and admitted to tele floor. Vitals in ED: BP 100/64mmHg, HR 88bpm, T 99.5, RR 18, O2 sat 96% Pt has RUE swelling for which venous doppler was done: negative for DVT. Hospital course Evaluated by GI-- deemed high risk for GI procedures He had CT right arm done-- showed large hematoma- which is likely the source of anemia he received PRBC-- total 4 units course in hospital complicated by AMS-- found to UTI - was placed on antibiotics and possible seziure episode seen by Neurology Dr petty- meds adjusted-- MRI brain-- no acute findings EEG done- results pending-- cn be followed up as outpt per Neurology-- taper off lacosamide Pt will be dc to [facility] stable for dc - will change lovenox full dose to NOAC he has tolerated Lovenox here in hospital - cbc stable - Instructions - Home Medications Comprehensive Discharge Medication List: Ambulatory Orders Alprazolam [Xanax] 1 mg PO HS 01/19/19 Amiodarone HCl 100 mg PO DAILY 01/19/19 Atorvastatin Ca [Lipitor] 80 mg PO HS 01/19/19 Carvedilol [Coreg -] 3.125 mg PO DAILY 01/19/19 Dicloxacillin Sodium [Dynapen -] 500 mg PO Q8H 01/19/19 Docusate Sodium [Colace -] 100 mg PO TID 01/19/19 Enoxaparin [Lovenox -] 80 mg SQ Q12H 01/19/19 Escitalopram Oxalate [Lexapro -] 10 mg PO DAILY 01/19/19 Furosemide [Lasix -] 40 mg PO BID 01/19/19 HYDROmorphone [Dilaudid -] 2 mg PO Q3H PRN 01/19/19 HYDROmorphone [Dilaudid -] 4 mg PO Q3H PRN 01/19/19 Insulin Glargine,Hum.rec.anlog [Lantus Solostar] 10 unit SQ HS 01/19/19 Insulin Lispro [Humalog] 100 unit SQ BID 01/19/19 Lacosamide [Vimpat] 100 mg PO Q12H 01/19/19 Levothyroxine [Synthroid -] 175 mcg PO DAILY 01/19/19 Multivitamin [Multiple Vitamins] 1 each PO DAILY 01/19/19 Pantoprazole Sodium [Protonix -] 40 mg PO DAILY 01/19/19 Sennosides [Senna] 2 tab PO HS 01/19/19 Spironolactone [Aldactone] 25 mg PO DAILY 01/19/19 Tamsulosin HCl [Flomax] 0.4 mg PO DAILY 01/19/19
[2019-01-28] MEDS: HYDROCORTISONE 2.5% TOPICAL CREAM 30 GM TUBE TP SCH (10:30)
--- NOTE | 2019-01-28 12:29 | PN ---
Progress Note, Physician History of Present Illness: Pt seen and examined at bedside. He is awake and alert. He denies shortness of breath however he is on oxygen. - Current Medication List Current Medications: Active Medications Alprazolam (Xanax -) 1 mg PO HS PRN PRN Reason: ANXIETY Amino Acids (Prosource No Carb Liquid Pkt) 30 ml PO BID@0800,1730 [facility] Last Admin: 01/28/19 08:20 Dose: Not Given Amiodarone HCl (Cordarone -) 100 mg PO DAILY [facility] Last Admin: 01/28/19 09:45 Dose: 100 mg Atorvastatin Calcium (Lipitor -) 80 mg PO HS [facility] Last Admin: 01/27/19 21:59 Dose: 80 mg Carvedilol (Coreg -) 3.125 mg PO DAILY [facility] Last Admin: 01/28/19 09:46 Dose: 3.125 mg Dicloxacillin Sodium (Dynapen -) 500 mg PO TID [facility] Last Admin: 01/28/19 06:15 Dose: 500 mg Docusate Sodium (Colace -) 100 mg PO TID [facility] Last Admin: 01/28/19 06:15 Dose: 100 mg Dutasteride (Avodart -) 0.5 mg PO DAILY [facility] Last Admin: 01/28/19 10:15 Dose: 0.5 mg Enoxaparin Sodium (Lovenox -) 80 mg SQ BID [facility] Last Admin: 01/28/19 09:52 Dose: 80 mg Escitalopram Oxalate (Lexapro -) 10 mg PO DAILY [facility] Last Admin: 01/28/19 09:53 Dose: 10 mg Hydrocortisone (Anusol 2.5% Hc Cream -) 1 applic TP BID [facility] Last Admin: 01/27/19 22:10 Dose: 1 applic Ceftriaxone Sodium 1 gm/ (Dextrose) 50 mls @ 100 mls/hr IVPB DAILY [facility] Last Admin: 01/28/19 09:43 Dose: 100 mls/hr Insulin Aspart (Novolog Vial Sliding Scale -) 1 vial SQ ACHS [facility]; Protocol Last Admin: 01/28/19 11:43 Dose: Not Given Insulin Detemir (Levemir Vial) 10 units SQ [facility] Last Admin: 01/27/19 22:24 Dose: Not Given Lacosamide (Vimpat -) 100 mg PO BID [facility] Last Admin: 01/28/19 09:53 Dose: 100 mg Levetiracetam (Keppra Injection -) 750 mg IVPB BID [facility] Last Admin: 01/28/19 09:53 Dose: 750 mg Levothyroxine Sodium 100 mcg/ (Levothyroxine Sodium 75 mcg) 175 mcg PO DAILY@ 0700 [facility] Last Admin: 01/28/19 06:15 Dose: 175 mcg Multi-Ingredient Ointment (Zinc Oxide) 1 applic TP BID [facility] Last Admin: 01/28/19 10:05 Dose: 1 applic Multivitamins/Minerals/Vitamin C (Tab-A-Vit -) 1 tab PO DAILY [facility] Last Admin: 01/28/19 09:53 Dose: 1 tab Nystatin (Mycostatin Cream -) 1 applic TP BID [facility] Last Admin: 01/28/19 10:02 Dose: 1 applic Pantoprazole Sodium (Protonix -) 40 mg PO BID [facility] Last Admin: 01/28/19 09:53 Dose: 40 mg Polyethylene Glycol (Miralax (For Daily Use) -) 17 gm PO DAILY [facility] Last Admin: 01/28/19 10:02 Dose: Not Given Senna (Senna -) 2 tab PO [facility] Last Admin: 01/27/19 21:59 Dose: 2 tab Tamsulosin HCl (Flomax -) 0.8 mg PO [facility] Last Admin: 01/27/19 21:59 Dose: 0.8 mg Tramadol HCl (Ultram -) 50 mg PO Q8H PRN PRN Reason: PAIN LEVEL 6-10 Last Admin: 01/28/19 02:16 Dose: 50 mg - Objective Vital Signs: Vital Signs Temperature 98.1 F 01/28/19 06:00 Pulse Rate 77 01/28/19 06:00 Respiratory Rate 18 01/28/19 06:00 Blood Pressure 102/52 L 01/28/19 06:00 O2 Sat by Pulse Oximetry (%) 100 01/27/19 21:00 Constitutional: Yes: Calm Eyes: Yes: Conjunctiva Clear Cardiovascular: Yes: S1, S2 Respiratory: Yes: On Nasal O2 Gastrointestinal: Yes: Soft Genitourinary: Yes: WNL Musculoskeletal: Yes: Muscle Weakness Edema: No Neurological: Yes: Oriented Psychiatric: Yes: Oriented Labs: CBC, BMP 01/27/19 06:30 01/27/19 06:30 INR, PTT INR 1.18 (0.83-1.09) H 01/20/19 08:44 Problem List - Problems (1) Anemia Code(s): D64.9 - ANEMIA, UNSPECIFIED Qualifiers: Anemia type: unspecified type Qualified Code(s): D64.9 - Anemia, unspecified (2) Hyponatremia syndrome Code(s): E87.1 - HYPO-OSMOLALITY AND HYPONATREMIA (3) Atrial fibrillation Code(s): I48.91 - UNSPECIFIED ATRIAL FIBRILLATION Qualifiers: Atrial fibrillation type: persistent Qualified Code(s): I48.1 - Persistent atrial fibrillation (4) Congestive heart disease Code(s): I50.9 - HEART FAILURE, UNSPECIFIED Qualifiers: Heart failure type: combined systolic and diastolic Heart failure chronicity: acute on chronic Qualified Code(s): I50.43 - Acute on chronic combined systolic (congestive) and diastolic (congestive) heart failure Assessment/Plan Current Medications Generic Name Dose Route Start Last Admin Trade Name Freq PRN Reason Stop Dose Admin Alprazolam 1 mg 01/26/19 02:09 Xanax - PO HS PRN ANXIETY Amino Acids 30 ml 01/27/19 17:30 01/28/19 08:20 Prosource No Carb Liquid Pkt PO Not Given BID@0800,1730 [facility] Amiodarone HCl 100 mg 01/26/19 10:00 01/28/19 09:45 Cordarone - PO 100 mg DAILY [facility] Administration Atorvastatin Calcium 80 mg 01/25/19 22:00 01/27/19 21:59 Lipitor - PO 80 mg HS [facility] Administration Carvedilol 3.125 mg 01/26/19 10:00 01/28/19 09:46 Coreg - PO 3.125 mg DAILY [facility] Administration Dicloxacillin Sodium 500 mg 01/25/19 22:00 01/28/19 06:15 Dynapen - PO 500 mg TID [facility] Administration Docusate Sodium 100 mg 01/25/19 22:00 01/28/19 06:15 Colace - PO 100 mg TID [facility] Administration Dutasteride 0.5 mg 01/26/19 10:00 01/28/19 10:15 Avodart - PO 0.5 mg DAILY [facility] Administration Enoxaparin Sodium 80 mg 01/26/19 14:15 01/28/19 09:52 Lovenox - SQ 80 mg BID [facility] Administration Escitalopram Oxalate 10 mg 01/26/19 10:00 01/28/19 09:53 Lexapro - PO 10 mg DAILY [facility] Administration Hydrocortisone 1 applic 01/25/19 22:00 01/27/19 22:10 Anusol 2.5% Hc Cream - TP 1 applic BID [facility] Administration Ceftriaxone Sodium 1 gm/ 50 mls @ 100 mls/hr 01/26/19 10:00 01/28/19 09:43 Dextrose IVPB 100 mls/hr DAILY [facility] Administration Insulin Aspart 1 vial 01/25/19 22:00 01/28/19 11:43 Novolog Vial Sliding Scale - SQ Not Given ACHS [facility] Protocol Insulin Detemir 10 units 01/25/19 22:00 01/27/19 22:24 Levemir Vial SQ Not Given HS [facility] Lacosamide 100 mg 01/25/19 22:00 01/28/19 09:53 Vimpat - PO 100 mg BID [facility] Administration Levetiracetam 750 mg 01/25/19 22:00 01/28/19 09:53 Keppra Injection - IVPB 750 mg BID [facility] Administration Levothyroxine Sodium 100 mcg/ 175 mcg 01/26/19 07:00 01/28/19 06:15 Levothyroxine Sodium 75 mcg PO 175 mcg DAILY@0700 [facility] Administration Multi-Ingredient Ointment 1 applic 01/25/19 22:00 01/28/19 10:05 Zinc Oxide TP 1 applic BID [facility] Administration Multivitamins/Minerals/Vitamin C 1 tab 01/26/19 10:00 01/28/19 09:53 Tab-A-Vit - PO 1 tab DAILY [facility] Administration Nystatin 1 applic 01/25/19 22:00 01/28/19 10:02 Mycostatin Cream - TP 1 applic BID [facility] Administration Pantoprazole Sodium 40 mg 01/25/19 22:00 01/28/19 09:53 Protonix - PO 40 mg BID [facility] Administration Polyethylene Glycol 17 gm 01/26/19 10:00 01/28/19 10:02 Miralax (For Daily Use) - PO Not Given DAILY [facility] Senna 2 tab 01/25/19 22:00 01/27/19 21:59 Senna - PO 2 tab HS [facility] Administration Tamsulosin HCl 0.8 mg 01/25/19 22:00 01/27/19 21:59 Flomax - PO 0.8 mg HS [facility] Administration Tramadol HCl 50 mg 01/26/19 02:08 01/28/19 02:16 Ultram - PO 50 mg Q8H PRN Administration PAIN LEVEL 6-10 Impression 1. hyponatremia 2. chf 3. anemia 4. cad 5. dm 6. a-fib 7. htn 8. lethargy 9. altered mental status 10. seizure Plan - sodium had stabilizes - diuretics were held - can restart spironolactone at lower dose - monitor volume status and lytes
[2019-01-28] MEDS ORDERED: SPIRONOLACTONE 25 MG TABLET (FP) PO SCH ×2 (12:30→15:15)
[2019-01-28 12:49] VITALS: TEMP 97.8
--- NOTE | 2019-01-28 13:52 | PN ---
Progress Note, Physician History of Present Illness: stable still with some confusion - Current Medication List Current Medications: Active Medications Alprazolam (Xanax -) 1 mg PO HS PRN PRN Reason: ANXIETY Amino Acids (Prosource No Carb Liquid Pkt) 30 ml PO BID@0800,1730 [facility] Last Admin: 01/28/19 08:20 Dose: Not Given Amiodarone HCl (Cordarone -) 100 mg PO DAILY [facility] Last Admin: 01/28/19 09:45 Dose: 100 mg Atorvastatin Calcium (Lipitor -) 80 mg PO HS [facility] Last Admin: 01/27/19 21:59 Dose: 80 mg Carvedilol (Coreg -) 3.125 mg PO DAILY [facility] Last Admin: 01/28/19 09:46 Dose: 3.125 mg Dicloxacillin Sodium (Dynapen -) 500 mg PO TID [facility] Last Admin: 01/28/19 06:15 Dose: 500 mg Docusate Sodium (Colace -) 100 mg PO TID [facility] Last Admin: 01/28/19 06:15 Dose: 100 mg Dutasteride (Avodart -) 0.5 mg PO DAILY [facility] Last Admin: 01/28/19 10:15 Dose: 0.5 mg Enoxaparin Sodium (Lovenox -) 80 mg SQ BID [facility] Last Admin: 01/28/19 09:52 Dose: 80 mg Escitalopram Oxalate (Lexapro -) 10 mg PO DAILY [facility] Last Admin: 01/28/19 09:53 Dose: 10 mg Hydrocortisone (Anusol 2.5% Hc Cream -) 1 applic TP BID [facility] Last Admin: 01/27/19 22:10 Dose: 1 applic Ceftriaxone Sodium 1 gm/ (Dextrose) 50 mls @ 100 mls/hr IVPB DAILY [facility] Last Admin: 01/28/19 09:43 Dose: 100 mls/hr Insulin Aspart (Novolog Vial Sliding Scale -) [address] [facility]; Protocol Last Admin: 01/28/19 11:43 Dose: Not Given Insulin Detemir (Levemir Vial) 10 units SQ HS [facility] Last Admin: 01/27/19 22:24 Dose: Not Given Lacosamide (Vimpat -) 100 mg PO BID [facility] Last Admin: 01/28/19 09:53 Dose: 100 mg Levetiracetam (Keppra Injection -) 750 mg IVPB BID [facility] Last Admin: 01/28/19 09:53 Dose: 750 mg Levothyroxine Sodium 100 mcg/ (Levothyroxine Sodium 75 mcg) 175 mcg PO DAILY@ 0700 [facility] Last Admin: 01/28/19 06:15 Dose: 175 mcg Multi-Ingredient Ointment (Zinc Oxide) 1 applic TP BID [facility] Last Admin: 01/28/19 10:05 Dose: 1 applic Multivitamins/Minerals/Vitamin C (Tab-A-Vit -) 1 tab PO DAILY [facility] Last Admin: 01/28/19 09:53 Dose: 1 tab Nystatin (Mycostatin Cream -) 1 applic TP BID [facility] Last Admin: 01/28/19 10:02 Dose: 1 applic Pantoprazole Sodium (Protonix -) 40 mg PO BID [facility] Last Admin: 01/28/19 09:53 Dose: 40 mg Polyethylene Glycol (Miralax (For Daily Use) -) 17 gm PO DAILY [facility] Last Admin: 01/28/19 10:02 Dose: Not Given Senna (Senna -) 2 tab PO HS [facility] Last Admin: 01/27/19 21:59 Dose: 2 tab Spironolactone (Aldactone -) 12.5 mg PO DAILY [facility] Tamsulosin HCl (Flomax -) 0.8 mg PO HS [facility] Last Admin: 01/27/19 21:59 Dose: 0.8 mg Tramadol HCl (Ultram -) 50 mg PO Q8H PRN PRN Reason: PAIN LEVEL 6-10 Last Admin: 01/28/19 02:16 Dose: 50 mg - Objective Vital Signs: Vital Signs Temperature 97.8 F 01/28/19 10:00 Pulse Rate 75 01/28/19 10:00 Respiratory Rate 18 01/28/19 10:00 Blood Pressure 103/63 01/28/19 10:00 O2 Sat by Pulse Oximetry (%) 99 01/28/19 09:00 Constitutional: Yes: No Distress, Calm Cardiovascular: Yes: S1, S2 Respiratory: Yes: Regular, CTA Bilaterally Gastrointestinal: Yes: Normal Bowel Sounds, Soft Musculoskeletal: Yes: WNL Extremities: Yes: WNL Neurological: Yes: Alert, Confusion Psychiatric: Yes: Alert Labs: CBC, BMP 01/27/19 06:30 01/27/19 06:30 INR, PTT INR 1.18 (0.83-1.09) H 01/20/19 08:44 Assessment/Plan Problem List - Problems (1) Acute anemia Code(s): D64.9 - ANEMIA, UNSPECIFIED (2) Hyponatremia syndrome Code(s): E87.1 - HYPO-OSMOLALITY AND HYPONATREMIA (3) Prophylactic measure Code(s): Z29.9 - ENCOUNTER FOR PROPHYLACTIC MEASURES, UNSPECIFIED (4) Anxiety Code(s): F41.9 - ANXIETY DISORDER, UNSPECIFIED (5) Atrial fibrillation Code(s): I48.91 - UNSPECIFIED ATRIAL FIBRILLATION Qualifiers: Atrial fibrillation type: persistent Qualified Code(s): I48.1 - Persistent atrial fibrillation (6) CAD (coronary artery disease) Code(s): I25.10 - ATHSCL HEART DISEASE OF [place] CORONARY ARTERY W/O ANG PCTRS Qualifiers: Coronary Disease-Associated Artery/Lesion type: bypass graft [place] vs. transplanted heart: [place] heart Associated angina: angina presence unspecified Qualified Code(s): I25.810 - Atherosclerosis of coronary artery bypass graft(s) without angina pectoris (7) Hypothyroidism Code(s): E03.9 - HYPOTHYROIDISM, UNSPECIFIED (8) IDDM (insulin dependent diabetes mellitus) Code(s): E11.9 - TYPE 2 DIABETES MELLITUS WITHOUT COMPLICATIONS; Z79.4 - [employer] WORK[employer] (CURRENT) USE OF INSULIN 9 uti plan continue current mgmt stable
[2019-01-28 15:24] VITALS: BP 98/60; PULSE 80
[2019-01-28] MEDS ORDERED: INSULIN SLIDING SCALE (NOVOLOG) 1 VIAL SQ ONE (18:52)
== END 2019-01-28 18:01 | DRG 813 ==
LOC: JER 16:23 → JERBED 19:12 → J8W 01-20 01:44 → OBSVTOIN 01-20 10:18 → J4S 01-25 18:04
PROVIDERS: ADMIT Internal Medicine; ATTEND Internal Medicine
PROC: 30233N1 Transfusion of Nonautologous Red Blood Cells into Peripheral Vein, Percutaneous Approach (ICD-10-PCS; principal; 2019-01-19)
DX: D68.32 Hemorrhagic disorder due to extrinsic circulating anticoagulants (principal); I26.99 Other pulmonary embolism without acute cor pulmonale; I50.42 Chronic combined systolic (congestive) and diastolic (congestive) heart failure; M86.60 Other chronic osteomyelitis, unspecified site; E87.1 Hypo-osmolality and hyponatremia; N39.0 Urinary tract infection, site not specified; I48.1 Persistent atrial fibrillation; D64.9 Anemia, unspecified; R33.8 Other retention of urine; R56.9 Unspecified convulsions; I25.10 Atherosclerotic heart disease of native coronary artery without angina pectoris; Z95.1 Presence of aortocoronary bypass graft; E11.9 Type 2 diabetes mellitus without complications; R41.82 Altered mental status, unspecified; I10 Essential (primary) hypertension; R33.9 Retention of urine, unspecified; E03.9 Hypothyroidism, unspecified; Z79.4 Long term (current) use of insulin; F41.9 Anxiety disorder, unspecified; E78.5 Hyperlipidemia, unspecified
CPT/HCPCS: 36415; 36430; 36511; 36600; 70450-TC; 70551-TC; 71045-TC-FY; 73200-TC-RT; 73560-TC-LT-FY; 80048; 80053; 81003; 81015; 82105; 82140; 82272; 82378; 82533; 82550; 82553; 82803; 82962; 83540; 83550; 83605; 83735; 83880; 83930; 83935; 84100; 84153; 84300; 84439; 84443; 84484; 85025; 85027; 85610; 85730; 86301; 86850; 86900; 86901; 86922; 87040; 87086; 87186; 93005; 93010; 93971; 95816; 97161-GP; 99283-25; G0378; J0131; J7030; P9038; P9058

== ENCOUNTER 2019-02-18 15:47 | Emergency (ER) | payer OTHER, BC ==
[2019-02-18 16:08] VITALS: BP 111/63; PULSE 78; TEMP 97; BMI 33.4
--- NOTE | 2019-02-18 17:02 | PDOC ---
History of Present Illness - General Chief Complaint: Abscess Boil Stated Complaint: DRAINAGE Time Seen by Provider: 02/18/19 16:44 History Source: Patient Exam Limitations: No Limitations - History of Present Illness Initial Comments: 78 year old M with hx CAD s/p 4V CABG, pafib, htn, hld, systolic CHF, hypothyroidism, DMII, Chronic osteomyelitis, and parietal meningioma (s/p resection 2001) presents to the ER from [facility] because his PCP at the [facility] told him "he needs to have the abscess in his left armpit drained in the ER." The patient states that he has had this pain in his armpit for over a week now but it has worsened over the past few days. He denies fevers , chills, infections, or any complaints aside from his left axilla pain. He takes apixaban for his heart conditions. PCP: Zoie Campbell PSH: CABG, meningioma resection Social Hx: Denies current smoking, drinking, or other substance usage. Allergies: Strawberries, NKDA Past History - Past Medical History Allergies/Adverse Reactions: Allergies Allergy/AdvReac Type Severity Reaction Status Date / Time No Known Drug Allergies Allergy Verified 02/18/19 16:05 strawberry Allergy Hives Verified 02/18/19 16:05 Home Medications: Ambulatory Orders Aa/Hydrolyzed Collagen, Whey [Lps 15-30 Liquid] 30 ml PO BID 02/18/19 Acetaminophen [Tylenol] 650 mg PO QID PRN 02/18/19 Alprazolam [Xanax] 1 mg PO HS 02/18/19 Amiodarone HCl 100 mg PO DAILY 02/18/19 Ammonium Lactate Lotion [Lac-Hydrin 12% Lotion -] 1 applic TP DAILY 02/18/19 Apixaban [Eliquis] 5 mg PO BID 02/18/19 Ascorbic Acid [Vitamin C] 500 mg PO DAILY 02/18/19 Atorvastatin Ca [Lipitor] 80 mg PO HS 02/18/19 Carvedilol [Coreg -] 3.125 mg PO TID 02/18/19 Collagenase Clostridium Hist. [Santyl] 1 applic TP DAILY 02/18/19 Dicloxacillin Sodium 500 mg PO TID 02/18/19 Docusate Sodium [Colace] 100 mg PO TID 02/18/19 Escitalopram Oxalate [Lexapro -] 10 mg PO DAILY 02/18/19 Lacosamide [Vimpat -] 100 mg PO BID 02/18/19 Levetiracetam [Keppra] 750 mg PO BID 02/18/19 Levothyroxine Sodium [Synthroid] 175 mcg PO DAILY 02/18/19 Multivitamin [One-Daily Multi-Vitamin] 1 each PO DAILY 02/18/19 Pantoprazole Sodium 40 mg PO DAILY 02/18/19 Sennosides [Senna] 17.2 mg PO HS 02/18/19 Spironolactone [Aldactone] 25 mg PO DAILY 02/18/19 Sulfamethoxazole/Trimethoprim [Bactrim Ds -] 1 tab PO BID 10 Days #20 tablet Tamsulosin HCl [Flomax] 0.8 mg PO HS 02/18/19 Tramadol HCl [Tramadol HCl ER] 50 mg PO QID PRN 02/18/19 Anemia: Yes Cancer: Yes (brain tumor) Cardiac Disorders: Yes (bypass sx) COPD: No CHF: Yes Diabetes: Yes HTN: Yes Hypercholesterolemia: Yes Seizures: Yes Thyroid Disease: Yes (HYPO) - Surgical History Appendectomy: Yes Cardiac Surgery: Yes (CABG) Neurologic Surgery: Yes (MENINGIOMA REMOVED) - Immunization History Immunization Up to Date: (UNKNOWN) - Suicide/Smoking/Psychosocial Hx Smoking History: Never smoked Have you smoked in the past 12 months: No If you are a former smoker, when did you quit?: 40YRS AGO Hx Alcohol Use: No Drug/Substance Use Hx: No Substance Use Type: Alcohol Hx Substance Use Treatment: No Review of Systems - Review of Systems Able to Perform ROS?: Yes Constitutional: No: Chills, Fever, Loss of Appetite HEENTM: No: Blurred Vision, Double Vision, Nose Bleeding, Hearing Loss Respiratory: No: Cough, Shortness of Breath, Stridor, Wheezing Cardiac (ROS): No: Chest Pain, Lightheadedness, Palpitations ABD/GI: No: Constipated, Diarrhea, Nausea, Poor Appetite : No: Burning, Dysuria Musculoskeletal: No: Back Pain, Muscle Pain, Neck Pain Integumentary: Yes: Change in Color, Erythema, Lumps Neurological: No: Headache, Numbness Psychiatric: No: Anxiety, Depression Endocrine: No: Excessive Sweating, Intolerance to Cold, Intolerance to Heat Hematologic/Lymphatic: No: Anemia *Physical Exam - Vital Signs Last Vital Signs Temp Pulse Resp BP Pulse Ox 97.0 F L 78 18 111/63 100 02/18/19 16:06 02/18/19 16:06 02/18/19 16:06 02/18/19 16:06 02/18/19 16:06 - Physical Exam General Appearance: Yes: Nourished, Appropriately Dressed. No: Apparent Distress HEENT: positive: EOMI, COURTNEY, Normal ENT Inspection, Normal Voice Neck: positive: Supple Respiratory/Chest: positive: Lungs Clear, Normal Breath Sounds Cardiovascular: positive: Regular Rhythm, Regular Rate Gastrointestinal/Abdominal: positive: Soft Rectal Exam: positive: deferred Musculoskeletal: positive: Normal Inspection, Decreased Range of Motion Extremity: positive: Normal Capillary Refill, Normal Inspection, Normal Range of Motion Integumentary: positive: Normal Color, Dry, Warm, Other (There is a 6x8 area of eythema/indurance/fluctuance which is tender to palpation) Neurologic: positive: Fully Oriented, Alert, Normal Mood/Affect, Normal Response Procedures - Incision and Drainage I&D Site: Left: Axilla Betadine cleansed: Yes Anesthesia: 1% Lidocaine Volume(ml): 15 Blade Size: 10 Attempts: 1 Iodinated Packin in Plain Packing: No Complications: none Dressing: Yes ED Treatment Course - LABORATORY CBC & Chemistry Diagram: 02/18/19 17:39 02/18/19 17:39 Medical Decision Making - Medical Decision Making 78 year old M with hx CAD s/p 4V CABG, pafib, htn, hld, systolic CHF, hypothyroidism, DMII, Chronic osteomyelitis, and parietal meningioma (s/p resection 2001) presents to the ER from [facility] because his PCP at the [facility] told him "he needs to have the abscess in his left armpit drained in the ER." The patient states that he has had this pain in his armpit for over a week now but it has worsened over the past few days. He denies fevers , chills, infections, or any complaints aside from his left axilla pain. He takes apixaban for his heart conditions. VS: WNL DDx IBNLT: Abscess vs lymph node vs mass/tumor, cellulitis Plan: Cbc, Cmp, coags, Chest CT w/ contrast to evaluate abscess vs tumor vs lymph node. If this is an abscess will consider incising and draining. Considering the patient is on apixaban will first obtain coags before draining. CT shows it's an abscess - Drained the abscess and placed 2 inches of packing. - Abscess wound culture sent for Abx sensitivity Patient discharged with return precautions. *DC/Admit/Observation/Transfer Diagnosis at time of Disposition: Abscess of left axilla - Discharge Dispostion Disposition: HOME Condition at time of disposition: Stable Decision to Admit order: No - Prescriptions Prescriptions: Sulfamethoxazole/Trimethoprim [Bactrim Ds -] 1 tab PO BID 10 Days #20 tablet - Referrals Referrals: Zoie Campbell MD [Primary Care Provider] - - Patient Instructions Printed Discharge Instructions: DI for Incision and Drainage of a Skin Abscess Additional Instructions: You came into the ER to have an abscess drained. We drained the abscess. We placed 1 inch of packing into your abscess. Please have the dressing changed every day for the next 5 days. We are sending Bactrim to your pharmacy - please make sure to take the Antibiotic for the next 10 days. Come back to the Er immediately if your pain worsens, you get a fever, or have any other concerns that your abscess is getting infected. Signs of infection include redness, pain, increased swelling, fever, or any other concerning symptoms. thank you for coming to the [facility] ER. We hope you feel better soon! Print Language: SERBIAN - Post Discharge Activity
[2019-02-18 17:46] LABS: EOS % 3.6 % (0-4.5); HEMATOCRIT 37.3 % (35.4-49); HEMOGLOBIN 12.5 GM/dL (11.7-16.9); LYMPH % 6.3 % (8-40); MCH 32.1 pg (25.7-33.7); MCHC 33.6 g/dl (32.0-35.9); MEAN CELL VOLUME 95.7 fl (80-96); MEAN PLT VOLUME 8.2 fl (7.5-11.1); MONO % 17.5 % (3.8-10.2); NEUT % 71.6 % (42.8-82.8); PLATELET COUNT 148 K/MM3 (134-434); RDW 20.1 % (11.9-15.9); WHITE BLOOD COUNT 4.8 K/mm3 (4.0-10.0)
[2019-02-18 18:02] LABS: INR 1.47 (0.83-1.09); PROTHROMBIN TIME (PATIENT) 17.4 SEC (9.7-13.0)
[2019-02-18 18:04] LABS: ACTIVATED PTT 36.7 SECONDS (25.2-36.5)
[2019-02-18 18:19] LABS: ALBUMIN 2.8 g/dl (3.4-5.0); ALK PHOS 179 U/L (45-117); ANION GAP 4 MMOL/L (8-16); BILIRUBIN,TOTAL 0.6 mg/dL (0.2-1); BLOOD UREA NITROGEN 19 mg/dL (7-18); CALCIUM 8.6 mg/dL (8.5-10.1); CHLORIDE 101 mmol/L (98-107); CO2 32 mmol/L (21-32); CREATININE 0.8 mg/dL (0.55-1.3); GLUCOSE,RANDOM 151 mg/dL (74-106); POTASSIUM 4.6 mmol/L (3.5-5.1); SGOT/AST 46 U/L (15-37); SGPT/ALT 33 U/L (13-61); SODIUM 137 mmol/L (136-145)
--- NOTE | 2019-02-18 20:40 | PDOC ---
Documentation entered by Nesha Baker SCRIBE, acting as scribe for Kyung Schreiber DO. Kyung Schreiber DO: This documentation has been prepared by the Olivia bill Daisy, SCRIBE, under my direction and personally reviewed by me in its entirety. I confirm that the documentation accurately reflects all work, treatment, procedures, and medical decision making performed by me. Attending Attestation - Resident Resident Name: Nicolas Corral - ED Attending Attestation I have performed the following: I have examined & evaluated the patient, The case was reviewed & discussed with the resident, I agree w/resident's findings & plan - HPI HPI: 02/18/19 18:06 The patient is a 78 YOM with a PMH of CAD s/p 4V CABG, pafib, htn, hld, systolic CHF, hypothyroidism, DMII, Chronic osteomyelitis, and parietal meningioma (s/p resection 2001) sent in by [facility] for evaluation of an abscess under the left armpit. She is complaining of pain to her left armpit that has worsened over the past few days. Denies any drainage from the site. Patient has no other complaints at this time. Allergies: Strawberries, NKDA PSH: CABG, meningioma resection Social Hx: Denies current smoking, drinking, or other substance usage. PCP: Dr. Campbell - Physicial Exam PE: 02/18/19 18:22 ADULT PHYSICAL EXAM Constitutional: Awake, alert, oriented. No acute distress. Eyes: PERRL. EOMI. Conjunctivae are not pale. ENT: Mucous membranes are moist and intact. Posterior pharynx without exudates or erythema. Uvula midline. Cardiovascular: Regular rate. Regular rhythm. S1, S2 regular. Distal pulses are 2+ and symmetric. Pulmonary/Chest: No evidence of respiratory distress. Clear to auscultation bilaterally No wheezing, rales or rhonchi. Abdominal: Soft and non-distended. There is no tenderness. Musculoskeletal: No edema. Full range of motion in all extremities. Skin: (+) Left chest wall distal to left underarm with a fluctuant area, mild redness, no drainage, non-tender, no lymphangitis Neurological: Alert and oriented to person, place, and time. Cranial nerves II -XII are grossly intact. - Medical Decision Making 02/18/19 18:15 a/p: 78yo male with L chest wall growth -bedside ultrasound shows well circumscribed lesion with internal echos -concern for mass vs abscess vs sebaceous cyst -also on apixiban -will obtain labs, ct chest to eval for poss mass -no pain at the site 02/18/19 20:19 abscess to L chest wall- will perform localized I&D no fevers, no elevated wbc 02/18/19 21:02 resident performed I&D of L axilla abscess culture sent lots of purulent material expressed will start bactrim and dc back to the E[facility]
== END 2019-02-18 23:59 | disposition home or self-care (01) ==
LOC: JER 15:47
PROC: 0H9CXZZ Drainage of Left Upper Arm Skin, External Approach (ICD-10-PCS; principal; 2019-02-18)
DX: L02.412 Cutaneous abscess of left axilla (principal); I10 Essential (primary) hypertension; E78.5 Hyperlipidemia, unspecified; I50.9 Heart failure, unspecified; E03.9 Hypothyroidism, unspecified; E11.9 Type 2 diabetes mellitus without complications; M86.9 Osteomyelitis, unspecified; D32.9 Benign neoplasm of meninges, unspecified; I25.10 Atherosclerotic heart disease of native coronary artery without angina pectoris; I48.91 Unspecified atrial fibrillation
CPT/HCPCS: 36415; 71260-TC; 80053; 85025; 85610; 85730; 86850; 86900; 86901; 87070; 87186; 87205; 99282-25

== ENCOUNTER 2019-05-05 01:54 | Inpatient (IN) | payer OTHER, BC ==
--- NOTE | 2019-05-05 04:57 | PDOC ---
Attending Attestation - Resident Resident Name: Pete Mosqueda - ED Attending Attestation I have performed the following: I have examined & evaluated the patient, The case was reviewed & discussed with the resident, I agree w/resident's findings & plan - HPI HPI: 05/05/19 06:13 78-year-old male with increasing shortness of breath and cough productive with white sputum - Physicial Exam PE: 05/05/19 06:14 agree with resident exam - Medical Decision Making 05/05/19 06:14 78-year-old male with PND, increasing dyspnea on exertion Chest x-ray shows a right pleural effusion with congestive changes, largely unchanged from previous BNP is markedly elevated Lasix 40 mg IV push given Plan for admission to medical service
--- NOTE | 2019-05-05 05:20 | PDOC ---
History of Present Illness - General Chief Complaint: Shortness of Breath Stated Complaint: DIFFICULTY BREATHING Time Seen by Provider: 05/05/19 04:34 History Source: Patient Exam Limitations: No Limitations - History of Present Illness Initial Comments: 05/05/19 05:18 78M with a PMH of CAD s/p 4V CABG, PAF, HTN, HLD, systolic CHF, hypothyroidism, DMII, Chronic osteomyelitis, and parietal meningioma (s/p resection 2001) who presents to the ER with complaints of shortness of breath. The patient states that he was laying down to rest at night and felt some difficulty "catching his breath". He admits to "some" palpitations but denies CP, fever, chills, nausea, vomiting, diaphoresis, numbness, tingling, weakness, lightheadedness. Admits to chronic orthopnea and b/l LE swelling. Pt was taken off of eliquis as he is a fall risk and is now on 81mg asa. Past History - Past Medical History Allergies/Adverse Reactions: Allergies Allergy/AdvReac Type Severity Reaction Status Date / Time No Known Drug Allergies Allergy Verified 05/05/19 02:09 strawberry Allergy Hives Verified 05/05/19 02:09 Home Medications: Ambulatory Orders Alprazolam [Xanax] 1 mg PO HS 02/18/19 Atorvastatin Ca [Lipitor] 80 mg PO HS 02/18/19 Carvedilol [Coreg -] 3.125 mg PO TID 02/18/19 Dicloxacillin Sodium 500 mg PO Q8H 02/18/19 Docusate Sodium [Colace] 100 mg PO BID 02/18/19 Escitalopram Oxalate [Lexapro -] 10 mg PO DAILY 02/18/19 Levetiracetam [Keppra] 750 mg PO BID 02/18/19 Levothyroxine Sodium [Synthroid] 175 mcg PO DAILY 02/18/19 Tamsulosin HCl [Flomax] 0.8 mg PO HS 02/18/19 Tramadol HCl [Tramadol HCl ER] 50 mg PO QID PRN 02/18/19 Aspirin [ASA -] 81 mg PO DAILY 05/05/19 Ibuprofen [Ibu] 600 mg PO TID 05/05/19 Anemia: Yes Cancer: Yes (brain tumor) Cardiac Disorders: Yes (bypass sx) COPD: No CHF: Yes Diabetes: Yes HTN: Yes Hypercholesterolemia: Yes Seizures: Yes Thyroid Disease: Yes (HYPO) - Surgical History Appendectomy: Yes Cardiac Surgery: Yes (CABG) Neurologic Surgery: Yes (MENINGIOMA REMOVED) - Immunization History Immunization Up to Date: (UNKNOWN) - Suicide/Smoking/Psychosocial Hx Smoking History: Never smoked Have you smoked in the past 12 months: No If you are a former smoker, when did you quit?: 40YRS AGO Information on smoking cessation initiated: No Hx Alcohol Use: No Drug/Substance Use Hx: No Substance Use Type: Alcohol Hx Substance Use Treatment: No Review of Systems - Review of Systems Able to Perform ROS?: Yes Comments:: 05/05/19 05:32 GENERAL/CONSTITUTIONAL: No fever or chills. No weakness. HEAD, EYES, EARS, NOSE AND THROAT: No change in vision. No ear pain or discharge. No sore throat. CARDIOVASCULAR: + for palpitations. No chest pain or lightheadedness. RESPIRATORY: + for SOB. No cough, wheezing, or hemoptysis. GASTROINTESTINAL: No abdominal pain, nausea, vomiting, diarrhea, or constipation. GENITOURINARY: No dysuria, frequency, hematuria, or change in urination. MUSCULOSKELETAL: No joint or muscle swelling or pain. No neck or back pain. SKIN: No rash or lesions. NEUROLOGIC: No headache, numbness, tingling, focal weakness, loss of consciousness, or change in strength/sensation. Is the patient limited [place] proficient: No *Physical Exam - Vital Signs Last Vital Signs Temp Pulse Resp BP Pulse Ox 99.7 F H 100 H 20 120/81 100 05/05/19 01:55 05/05/19 02:30 05/05/19 02:30 05/05/19 01:55 05/05/19 02:30 - Physical Exam Comments: 05/05/19 05:34 GENERAL: Well developed, well nourished. Awake and alert. No acute distress. HEENT: Normocephalic, atraumatic. Hearing grossly normal. Moist mucous membranes. PERRLA, EOMI. No conjunctival pallor. Sclera are non-icteric. NECK: Supple. Full ROM. No JVD. CARDIOVASCULAR: Regular rate and rhythm. No murmurs, rubs, or gallops. PULMONARY: No evidence of respiratory distress. Mild rales in b/l lung viveros inferiorly. ABDOMINAL: Soft. Non-tender. Non-distended. No rebound or guarding. MUSCULOSKELETAL: Normal range of motion at all joints. No bony deformities or tenderness. EXTREMITIES: No cyanosis. No clubbing. 4+ pitting edema in b/l LE. No calf tenderness or swelling. SKIN: Warm and dry. Normal capillary refill. No rashes. No jaundice. NEUROLOGICAL: Alert, awake, appropriate. Cranial nerves 2-12 grossly intact. Normal speech. Gait is normal without ataxia. PSYCHIATRIC: Cooperative. Good eye contact. Appropriate mood and affect. ED Treatment Course - LABORATORY CBC & Chemistry Diagram: 05/11/19 05:28 05/11/19 05:28 - RADIOLOGY Radiology Studies Ordered: Category Date Time Status CHEST X-RAY PORTABLE* [RAD] Stat Radiology 05/05/19 04:50 Ordered Medical Decision Making - Medical Decision Making 05/05/19 05:36 78M with MMP mentioned above who presents to the ER with shortness of breath and white productive cough concerning for CHF exacerbation vs ACS. Pending labs and imaging. EKG unchanged from prior. 05/05/19 06:16 BNP >74440. CXR shows cephalization of fluids and R pleural effusion. Will microblog for admission. Pt on 25 mg spironolactone and took his medication last night. 05/05/19 06:25 Will give 40 IV lasix. Pending call back from hospitalist. 05/05/19 06:[address] Todd for admission under Dr. Hart. *DC/Admit/Observation/Transfer Diagnosis at time of Disposition: Systolic CHF, acute on chronic CAD (coronary artery disease) Qualifiers: Coronary Disease-Associated Artery/Lesion type: bypass graft [place] vs. transplanted heart: [place] heart Associated angina: angina presence unspecified Qualified Code(s): I25.810 - Atherosclerosis of coronary artery bypass graft(s) without angina pectoris - Discharge Dispostion Condition at time of disposition: Guarded Decision to Admit order: Yes - Referrals - Patient Instructions - Post Discharge Activity
[2019-05-05 05:42] LABS: BASO % 1.4 % (0-2.0); EOS % 1.8 % (0-4.5); HEMATOCRIT 37.3 % (35.4-49); HEMOGLOBIN 12.3 GM/dL (11.7-16.9); LYMPH % 15.8 % (8-40); MCH 31.4 pg (25.7-33.7); MEAN CELL VOLUME 95.1 fl (80-96); MEAN PLT VOLUME 9.1 fl (7.5-11.1); MONO % 11.3 % (3.8-10.2); NEUT % 69.7 % (42.8-82.8); PLATELET COUNT 143 K/MM3 (134-434); RBC 3.92 M/mm3 (4.00-5.60); RDW 17.3 % (11.9-15.9)
[2019-05-05 06:03] LABS: BILIRUBIN,TOTAL 0.7 mg/dL (0.2-1); BLOOD UREA NITROGEN 19.3 mg/dL (7-18); CALCIUM 8.2 mg/dL (8.5-10.1); CREATININE 0.9 mg/dL (0.55-1.3); INR 1.42 (0.83-1.09); POTASSIUM 4.5 mmol/L (3.5-5.1); PROTHROMBIN TIME (PATIENT) 16.8 SEC (9.7-13.0)
[2019-05-05] MEDS ORDERED: FUROSEMIDE 40 MG/4 ML INJECTABLE VIAL IVPUSH ONE (06:23)
[2019-05-05] MEDS ORDERED: FUROSEMIDE 40 MG/4 ML INJECTABLE VIAL ONE (07:01)
--- NOTE | 2019-05-05 07:36 | HP ---
Admitting History and Physical - Primary Care Physician PCP: Glenda Todd - Admission Chief Complaint: SOB History of Present Illness: 78M with a PMH of CAD s/p 4V CABG, PAF, HTN, HLD, systolic CHF, hypothyroidism, DMII, Chronic osteomyelitis, and parietal meningioma (s/p resection 2001) who presents to the ER with complaints of shortness of breath. The patient states that he was laying down to rest at night and felt some difficulty "catching his breath" and a productive cough with clear sputum. States he left "warm" but no fever documented. He admits to "some" palpitations but denies CP, chills, nausea , vomiting, diaphoresis, numbness, tingling, weakness, lightheadedness. Admits to chronic orthopnea and b/l LE swelling. He had a recent PE in 01/20 and was on Eliquis but was taken off due to fall risk and is now on 81mg asa. Daughter states he was on lasix/aldactone but hasn't taken it in months. 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: CVA (questionable CVA in past), Peripheral Neuropathy, Other ( meningioma) Cardiovascular: Yes: AFIB, CAD (s/p CABG), CHF, Deep Vein Thrombosis, HTN, Hyperlipdemia Pulmonary: Yes: Pulmonary Embolus (01/20) Renal/: Yes: BPH Heme/Onc: Yes: Anemia Psych: Yes: Anxiety, Depression Musculoskeletal: Yes: Chronic low back pain, Osteoarthritis (to left knee) Endocrine: Yes: Diabetes Mellitus, Hypothyroidism - Past Surgical History Past Surgical History: Yes: Appendectomy, CABG ( 4) - Smoking History Smoking history: Never smoked Have you smoked in the past 12 months: No If you are a former smoker, when did you quit?: 40YRS AGO - Alcohol/Substance Use Hx Alcohol Use: No History of Substance Use: reports: None - Social History ADL: Support Services ([facility]) History of Recent Travel: No Home Medications - Allergies Allergies/Adverse Reactions: Allergies Allergy/AdvReac Type Severity Reaction Status Date / Time No Known Drug Allergies Allergy Verified 05/05/19 02:09 strawberry Allergy Hives Verified 05/05/19 02:09 - Home Medications Home Medications: Ambulatory Orders Alprazolam [Xanax] 1 mg PO HS 02/18/19 Atorvastatin Ca [Lipitor] 80 mg PO HS 02/18/19 Carvedilol [Coreg -] 3.125 mg PO TID 02/18/19 Dicloxacillin Sodium 500 mg PO Q8H 02/18/19 Docusate Sodium [Colace] 100 mg PO BID 02/18/19 Escitalopram Oxalate [Lexapro -] 10 mg PO DAILY 02/18/19 Levetiracetam [Keppra] 750 mg PO BID 02/18/19 Levothyroxine Sodium [Synthroid] 175 mcg PO DAILY 02/18/19 Tamsulosin HCl [Flomax] 0.8 mg PO HS 02/18/19 Tramadol HCl [Tramadol HCl ER] 50 mg PO QID PRN 02/18/19 Aspirin [ASA -] 81 mg PO DAILY 05/05/19 Ibuprofen [Ibu] 600 mg PO TID 05/05/19 Family Disease History - Family Disease History Family Disease History: Diabetes: Mother ( ( 70) natural causes), Other : Father ( (80s) aspiration), Mother, Brother ( alive (62) ), Sister ( alive (66) OA) Review of Systems - Review of Systems Constitutional: reports: Fever (subjective) Eyes: reports: No Symptoms HENT: reports: No Symptoms Neck: reports: No Symptoms Cardiovascular: reports: Shortness of Breath Respiratory: reports: Cough, Orthopnea, SOB on Exertion Gastrointestinal: reports: No Symptoms Genitourinary: reports: No Symptoms Breasts: reports: No Symptoms Reported Musculoskeletal: reports: Joint Pain (left knee) Integumentary: reports: Change in Color (to LE b/l) Neurological: reports: Weakness, Other (bedbound/wheelchair bound) Endocrine: reports: No Symptoms Hematology/Lymphatic: reports: No Symptoms Psychiatric: reports: No Symptoms Physical Examination Vital Signs: Vital Signs Temperature 99.7 F H 05/05/19 01:55 Pulse Rate 100 H 05/05/19 02:30 Respiratory Rate 20 05/05/19 02:30 Blood Pressure 120/81 05/05/19 01:55 O2 Sat by Pulse Oximetry (%) 100 05/05/19 02:30 Constitutional: Yes: No Distress, Calm Eyes: Yes: WNL, Conjunctiva Clear, EOM Intact HENT: Yes: WNL, Atraumatic, Normocephalic Neck: Yes: WNL, Supple, Trachea Midline Cardiovascular: Yes: WNL, Regular Rate and Rhythm Respiratory: Yes: Regular, Rhonchi (scattered) Gastrointestinal: Yes: WNL, Normal Bowel Sounds, Soft ...Rectal Exam: Yes: Deferred Renal/: Yes: WNL Musculoskeletal: Yes: Joint Stiffness (left knee) Extremities: Yes: Calf Tenderness (left calf), Erythema (to LE B/L) Edema: Yes Edema: LLE: 3+, RLE: 3+ Peripheral Pulses WNL: No Peripheral Pulses: Left Radial: 4+, Right Radial: 4+, Left Doralis Pedis: 2+, Right Dorsalis Pedis: 3+, Left Femoral: 3+, Right Femoral: 3+ Integumentary: Yes: Bruising, Erythema, Venous Stasis Changes (to LE BL) Neurological: Yes: Alert, Oriented, Weakness (RUE paralysis) ...Motor Strength: LUE (5/5), RUE (1/5) Psychiatric: Yes: WNL, Alert, Oriented Labs: CBC, BMP 05/05/19 05:25 05/05/19 05:25 Imaging - Results Chest X-ray: Image Reviewed (increased PVC, atelectasis questionable effusion ro right) Other: Report Reviewed (04/21 TTE EF 30%) Problem List - Problems (1) Diabetes Assessment/Plan: BGM AC/qHS Novvolg sliding scale send HgbA1C Diabetic diet Code(s): E11.9 - TYPE 2 DIABETES MELLITUS WITHOUT COMPLICATIONS (2) Knee pain, left Assessment/Plan: tramadol prn for pain may apple lidoderm patch if pain persists Code(s): M25.562 - PAIN IN LEFT KNEE (3) Hyperlipemia Assessment/Plan: continue home dose of lipitor Code(s): E78.5 - HYPERLIPIDEMIA, UNSPECIFIED (4) Osteomyelitis Assessment/Plan: no signs of active osteomyeletis Code(s): M86.9 - OSTEOMYELITIS, UNSPECIFIED (5) Meningioma Assessment/Plan: maintain on home keppra Code(s): D32.9 - BENIGN NEOPLASM OF MENINGES, UNSPECIFIED (6) Atrial fibrillation Assessment/Plan: previuos on Eliquis which was stopped for bleeding risk hold ASA for now, may restart in am continue home dose of coreg Code(s): I48.91 - UNSPECIFIED ATRIAL FIBRILLATION Qualifiers: Atrial fibrillation type: persistent Qualified Code(s): I48.1 - Persistent atrial fibrillation (7) CAD (coronary artery disease) Assessment/Plan: restart ASA tomorrow if no other anticoagulation is needed Code(s): I25.10 - ATHSCL HEART DISEASE OF [place] CORONARY ARTERY W/O ANG PCTRS Qualifiers: Coronary Disease-Associated Artery/Lesion type: bypass graft [place] vs. transplanted heart: [place] heart Associated angina: angina presence unspecified Qualified Code(s): I25.810 - Atherosclerosis of coronary artery bypass graft(s) without angina pectoris (8) Congestive heart disease Assessment/Plan: patient stopp taking lasix/aldactone at home BNO >10,000 in ED Lasix 40 mg IVP given start standing lasix 40mg IVO BID and increase if needed restart aldactone trend BNP Trop .03 continue to trend given recent PE and no anticoagulation and low grade fever would R/O PE-CTA chest ordered TTE to assess LV function and worsening CHF, mosr recent 04/21 with EF 30% Code(s): I50.9 - HEART FAILURE, UNSPECIFIED Qualifiers: Heart failure type: combined systolic and diastolic Heart failure chronicity: acute on chronic Qualified Code(s): I50.43 - Acute on chronic combined systolic (congestive) and diastolic (congestive) heart failure (9) HTN (hypertension) Assessment/Plan: normotensive, continue home dose of coreg Code(s): I10 - ESSENTIAL (PRIMARY) HYPERTENSION Qualifiers: Hypertension type: essential hypertension Qualified Code(s): I10 - Essential (primary) hypertension (10) Hypothyroidism Assessment/Plan: continue home dose of synthroid TSH level in am Code(s): E03.9 - HYPOTHYROIDISM, UNSPECIFIED (11) Lymphedema Assessment/Plan: BL LE edema L>R Dopplers of LE to R/O DVT Code(s): I89.0 - LYMPHEDEMA, NOT ELSEWHERE CLASSIFIED (12) Prophylactic measure Assessment/Plan: FEN diabeteic diet no additional need for IVF monitor electrolytes/Cr after CTA DVT dopples to r/o DVT will decided if AC is warranted after given high risk of falls Dispo admit to med surg bed for Dr Perez campbell discharge planning Code(s): Z29.9 - ENCOUNTER FOR PROPHYLACTIC MEASURES, UNSPECIFIED (13) BPH (benign prostatic hyperplasia) Assessment/Plan: continue home dose of flomax Code(s): N40.0 - BENIGN PROSTATIC HYPERPLASIA WITHOUT LOWER URINRY TRACT SYMP Visit type - Emergency Visit Emergency Visit: Yes Care time: The patient presented to the Emergency Department on the above date and was hospitalized for further evaluation of their emergent condition. - New Patient This patient is new to me today: Yes Date on this admission: 05/05/19 - Critical Care Critical Care patient: No
--- NOTE | 2019-05-05 09:42 | PN ---
Progress Note (short form) - Note Progress Note: seems sob no chest pain Vital Signs - 24 hr 05/05/19 05/05/19 05/05/19 01:55 02:30 07:30 Temperature 99.7 F H Pulse Rate 95 H 100 H Pulse Rate [ 88 Apical] Respiratory 20 20 16 Rate Blood Pressure 120/81 Blood Pressure 124/74 [Right Arm] O2 Sat by Pulse 97 100 99 Oximetry (%) 05/05/19 11:39 Temperature 98.0 F Pulse Rate Pulse Rate [ 80 Apical] Respiratory 16 Rate Blood Pressure Blood Pressure 114/71 [Right Arm] O2 Sat by Pulse 98 Oximetry (%) Current Medications Generic Name Dose Route Start Last Admin Trade Name Freq PRN Reason Stop Dose Admin Alprazolam 1 mg 05/05/19 22:00 Xanax - PO HS EUGENE Apixaban 5 mg 05/05/19 12:00 Eliquis - PO BID EUGENE Aspirin 81 mg 05/05/19 10:00 05/05/19 11:00 Asa - PO 81 mg DAILY EUGENE Administration Atorvastatin Calcium 80 mg 05/05/19 22:00 Lipitor - PO HS EUGENE Carvedilol 3.125 mg 05/05/19 10:00 05/05/19 11:00 Coreg - PO 3.125 mg BID EUGENE Administration Dicloxacillin Sodium 500 mg 05/05/19 08:30 05/05/19 11:00 Dynapen - PO 500 mg TID EUGENE Administration Docusate Sodium 100 mg 05/05/19 10:00 05/05/19 11:00 Colace - PO 100 mg BID EUGENE Administration Escitalopram Oxalate 10 mg 05/05/19 10:00 05/05/19 11:00 Lexapro - PO 10 mg DAILY EUGENE Administration Furosemide 40 mg 05/05/19 14:00 Lasix Injection - IVPUSH BID@0600,1400 [facility] Insulin Aspart 1 vial 05/05/19 11:00 05/05/19 11:00 Novolog Vial Sliding Scale - SQ Not Given ACHS [facility] Protocol Levetiracetam 750 mg 05/05/19 10:00 05/05/19 11:00 Keppra - PO 750 mg BID EUGENE Administration Levothyroxine Sodium 150 mcg/ 175 mcg 05/06/19 07:00 Levothyroxine Sodium 25 mcg PO DAILY@0700 [facility] Spironolactone 25 mg 05/05/19 10:00 05/05/19 11:00 Aldactone - PO 25 mg BID [facility] Administration Tamsulosin HCl 0.8 mg 05/05/19 22:00 Flomax - PO HS [facility] Laboratory Results - last 24 hr 05/05/19 05/05/19 05/05/19 05:25 05:25 05:25 WBC 6.0 RBC 3.92 L Hgb 12.3 Hct 37.3 MCV 95.1 MCH 31.4 MCHC 33.0 RDW 17.3 H Plt Count 143 MPV 9.1 D Absolute Neuts (auto) 4.2 Neutrophils % 69.7 Lymphocytes % 15.8 D Monocytes % 11.3 H Eosinophils % 1.8 Basophils % 1.4 Nucleated RBC % 0 PT with INR 16.80 H INR 1.42 H Sodium 140 Potassium 4.5 Chloride 109 H Carbon Dioxide 26 Anion Gap 6 L BUN 19.3 H Creatinine 0.9 Est GFR (CKD-EPI)AfAm 94.48 Est GFR (CKD-EPI)NonAf 81.52 POC Glucometer Random Glucose 98 Calcium 8.2 L Total Bilirubin 0.7 AST 23 ALT 20 Alkaline Phosphatase 154 H Creatine Kinase 134 Troponin I 0.03 B-Natriuretic Peptide Total Protein 6.0 L Albumin 3.0 L 05/05/19 05/05/19 05:25 11:29 WBC RBC Hgb Hct MCV MCH MCHC RDW Plt Count MPV Absolute Neuts (auto) Neutrophils % Lymphocytes % Monocytes % Eosinophils % Basophils % Nucleated RBC % PT with INR INR Sodium Potassium Chloride Carbon Dioxide Anion Gap BUN Creatinine Est GFR (CKD-EPI)AfAm Est GFR (CKD-EPI)NonAf POC Glucometer 104 Random Glucose Calcium Total Bilirubin AST ALT Alkaline Phosphatase Creatine Kinase Troponin I B-Natriuretic Peptide 77580.9 H Total Protein Albumin S1 S2 RRR Lungs decreased Abd- soft, NT Edema+-left leg PLAN sono positive for DVT left leg-spoke with Radiologist-- CTA chest pending-- will start Eliquis-- consult Vascular for possible IVC filter as pt has h/o bleeding due to anticoagulation with Lovenox in the past - he had a large hematoma in the arm previous admission monitor CBC renal eval as pt is getting contrast and need to prevent OMER Continue with IV lasix and aldactone-- will hold today's pm dose after he gets CTA chest cardiology eval Problem List - Problems (1) Systolic CHF, acute on chronic Code(s): I50.23 - ACUTE ON CHRONIC SYSTOLIC (CONGESTIVE) HEART FAILURE (2) Deep vein thrombosis (DVT) of left lower extremity Code(s): I82.402 - ACUTE EMBOLISM AND THOMBOS UNSP DEEP VEINS OF L LOW EXTREM Qualifiers: Chronicity: acute (3) Atrial fibrillation Code(s): I48.91 - UNSPECIFIED ATRIAL FIBRILLATION Qualifiers: Atrial fibrillation type: persistent Qualified Code(s): I48.1 - Persistent atrial fibrillation (4) CAD (coronary artery disease) Code(s): I25.10 - ATHSCL HEART DISEASE OF [place] CORONARY ARTERY W/O ANG PCTRS Qualifiers: Coronary Disease-Associated Artery/Lesion type: bypass graft [place] vs. transplanted heart: [place] heart Associated angina: angina presence unspecified Qualified Code(s): I25.810 - Atherosclerosis of coronary artery bypass graft(s) without angina pectoris
[2019-05-05] MEDS ORDERED: LEVOTHYROXINE NA 200 MCG TABLET PO SCH (10:00)
[2019-05-05] MEDS: CARVEDILOL 3.125 MG TABLET (FP) PO SCH ×2 (11:00→21:42)
[2019-05-05] MEDS: ASPIRIN 81 MG CHEWABLE TABLETS PO SCH (11:00)
[2019-05-05] MEDS: levETIRAcetam 250 MG TABLET (FP) PO SCH ×2 (11:00→21:42)
[2019-05-05] MEDS: INSULIN SLIDING SCALE (NOVOLOG) 1 VIAL SQ SCH ×3 (11:00→21:49)
[2019-05-05] MEDS: DICLOXACILLIN SODIUM 250 MG CAPSULE PO SCH ×3 (11:00→23:20)
[2019-05-05] MEDS: ESCITALOPRAM OXALATE 10 MG TABLET (FP) PO SCH (11:00)
[2019-05-05] MEDS: SPIRONOLACTONE 25 MG TABLET (FP) PO SCH (11:00)
[2019-05-05] MEDS: DOCUSATE SODIUM 100 MG CAPSULE (FP) PO SCH ×2 (11:00→21:43)
--- NOTE | 2019-05-05 12:28 | ECHO ---
Name: KLEBER CHRISTIAN Exam:Adult Echocardiogram Study Date: 05/05/2019 10:46 AM Age: 78 yrs Reason For Study: LV Function Height: 71 in Weight: 180 lb BSA: 2.0 m2 MMode/2D Measurements & Calculations IVSd: 1.3 cm Ao root diam: 3.5 cm LVIDd: 5.7 cm LA dimension: 4.9 cm LVIDs: 4.8 cm LVPWd: 1.2 cm EDV(Teich): 160.0 ml LVOT diam: 2.0 cm ESV(Teich): 108.8 ml LAV (MOD-bp): 116.0 ml Doppler Measurements & Calculations MV E max eris: 88.8 cm/sec Ao V2 max: 73.3 cm/sec MV A max eris: 30.6 cm/sec Ao max P.1 mmHg MV E/A: 2.9 MV dec time: 0.20 sec SANAZ(V,D): 2.2 cm2 LV V1 max P.1 mmHg MR max eris: 481.4 cm/sec LV V1 max: 52.9 cm/sec MR max P.9 mmHg TR max eris: 295.4 cm/sec PA V2 max: 67.9 cm/sec TR max P.2 mmHg PA max P.8 mmHg Med Peak E' Eris: 4.6 cm/sec PI Vmax: 183.2 cm/sec Med E/e': 19.4 Lat Peak E' Eris: 6.2 cm/sec Lat E/e': 14.3 Procedure A two-dimensional transthoracic echocardiogram with color flow and Doppler was performed. The patient had a bundle branch block rhythm during the exam. Left Ventricle The left ventricle is normal in size. There is mild concentric left ventricular hypertrophy. Left fidel tricular systolic function is severely reduced. Ejection Fraction = 30%. There is severe global hypokinesis of the left ventricle. Right Ventricle The right ventricle is moderately dilated. The right ventricular systolic function is severely reduce d. Atria The left atrium is mildly dilated. The right atrium is moderately dilated. Mitral Valve There is mild mitral valve thickening. There is mild mitral annular calcification. The mitral regurgi tant jet is eccentrically directed. There is moderate mitral regurgitation. Moderate to severe eccenctric post eriorly directed mitral regurgitation. Tricuspid Valve The tricuspid valve is normal. There is mild tricuspid regurgitation. There is moderate pulmonary hypertension. Right ventricular systolic pressure is elevated at 50-60mmHg. Aortic Valve There is mild aortic sclerosis.;. The aortic valve opens well. No hemodynamically significant valvula r aortic stenosis. Trace aortic regurgitation. Pulmonic Valve The pulmonic valve is not well visualized. Trace pulmonic valvular regurgitation. Great Vessels The aortic root is normal size. Pericardium/Pleura There is no pericardial effusion. Interpretation Summary There is mild concentric left ventricular hypertrophy. Left ventricular systolic function is severely reduced. Ejection Fraction = 30%. There is severe global hypokinesis of the left ventricle. The right ventricle is moderately dilated. The right ventricular systolic function is severely reduced. The left atrium is mildly dilated. The right atrium is moderately dilated. There is mild mitral valve thickening. There is mild mitral annular calcification. Moderate to severe eccenctric posteriorly directed mitral regurgitation. There is mild tricuspid regurgitation. There is moderate pulmonary hypertension. There is mild aortic sclerosis.; Trace aortic regurgitation. MD Jose Carrasco 05/05/2019 12:27 PM
--- NOTE | 2019-05-05 13:53 | EKG ---
Test Reason : Blood Pressure : / mmHG Vent. Rate : 088 BPM Atrial Rate : 100 BPM P-R Int : 000 ms QRS Dur : 122 ms QT Int : 422 ms P-R-T Axes : 000 -63 058 degrees QTc Int : 510 ms ATRIAL FIBRILLATION WITH PREMATURE VENTRICULAR OR ABERRANTLY CONDUCTED COMPLEXES LEFT AXIS DEVIATION INFERIOR INFARCT (CITED ON OR BEFORE 23-JUL-2006) ABNORMAL ECG WHEN COMPARED WITH ECG OF 25-JAN-2019 15:01, NO SIGNIFICANT CHANGE WAS FOUND Confirmed by MD ANNIA, ESTUARDO ([id number]) on 05/05/2019 1:52:57 PM Referred By: Confirmed By:ESTUARDO MILNER MD
[2019-05-05] MEDS ORDERED: IBUPROFEN 600 MG TABLET (FP) PO SCH (14:00)
--- NOTE | 2019-05-05 14:18 | CONSULT ---
Consult Consult Specialty:: Nephrology Reason for Consultation:: pt is post contrast - History of Present Illness Chief Complaint: shortness of breath History of Present Illness: Pt is a 78 year old male with pmhx of hyponatremia, cad, cabg, PAF, HTN, HLD, CHF, DM, and meningioma who presents to the ER with shortness of breath. He says he feels it at night. He was taken for ct angio of the chest this morning. I was called as got contrast and there was concern about his renal function. He already had the ct this morning. His creatinine is at baseline. He was also found to have a dvt. He feels that his breathing is improved. I know him from previous visits for his hyponatremia, which is now resolved. 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: CVA (questionable CVA in past), Peripheral Neuropathy, Other ( meningioma) Cardio/Vascular: Yes: AFIB, CAD (s/p CABG), CHF, Deep Vein Thrombosis, HTN, Hyperlipdemia Pulmonary: Yes: Pulmonary Embolus (01/20) Renal/: Yes: BPH Psych: Yes: Anxiety, Depression Musculoskeletal: Yes: Chronic low back pain, Osteoarthritis (to left knee) Endocrine: Yes: Diabetes Mellitus, Hypothyroidism - Past Surgical History Past Surgical History: Yes: Appendectomy, CABG ( 4) - Alcohol/Substance Use Hx Alcohol Use: No History of Substance Use: reports: None - Smoking History Smoking history: Never smoked Have you smoked in the past 12 months: No If you are a former smoker, when did you quit?: 40YRS AGO - Social History Usual Living Arrangement: Other ([facility]) ADL: Support Services ([facility]) History of Recent Travel: No Home Medications - Allergies Allergies/Adverse Reactions: Allergies Allergy/AdvReac Type Severity Reaction Status Date / Time No Known Drug Allergies Allergy Verified 05/05/19 02:09 strawberry Allergy Hives Verified 05/05/19 02:09 - Home Medications Home Medications: Ambulatory Orders Alprazolam [Xanax] 1 mg PO HS 02/18/19 Atorvastatin Ca [Lipitor] 80 mg PO HS 02/18/19 Carvedilol [Coreg -] 3.125 mg PO TID 02/18/19 Dicloxacillin Sodium 500 mg PO Q8H 02/18/19 Docusate Sodium [Colace] 100 mg PO BID 02/18/19 Escitalopram Oxalate [Lexapro -] 10 mg PO DAILY 02/18/19 Levetiracetam [Keppra] 750 mg PO BID 02/18/19 Levothyroxine Sodium [Synthroid] 175 mcg PO DAILY 02/18/19 Tamsulosin HCl [Flomax] 0.8 mg PO HS 02/18/19 Tramadol HCl [Tramadol HCl ER] 50 mg PO QID PRN 02/18/19 Aspirin [ASA -] 81 mg PO DAILY 05/05/19 Ibuprofen [Ibu] 600 mg PO TID 05/05/19 Family Disease History - Family Disease History Family Disease History: Diabetes: Mother ( ( 70) natural causes), Other : Father ( (80s) aspiration), Mother, Brother ( alive (62) ), Sister ( alive (66) OA) Review of Systems - Review of Systems Constitutional: reports: Malaise. denies: Chills Eyes: reports: No Symptoms HENT: reports: No Symptoms Neck: reports: No Symptoms Cardiovascular: reports: Edema Respiratory: reports: SOB Gastrointestinal: reports: No Symptoms Genitourinary: reports: No Symptoms Musculoskeletal: reports: Muscle Weakness Integumentary: reports: No Symptoms Neurological: reports: No Symptoms Endocrine: reports: No Symptoms Hematology/Lymphatic: reports: No Symptoms Physical Exam Vital Signs: Vital Signs Temperature 98.0 F 05/05/19 11:39 Pulse Rate 80 05/05/19 11:39 Respiratory Rate 16 05/05/19 11:39 Blood Pressure 114/71 05/05/19 11:39 O2 Sat by Pulse Oximetry (%) 98 05/05/19 11:39 Constitutional: Yes: Calm Eyes: Yes: Conjunctiva Clear HENT: Yes: Atraumatic Cardiovascular: Yes: S1, S2 Respiratory: Yes: On Nasal O2, Rhonchi Gastrointestinal: Yes: Soft Renal/: Yes: WNL Edema: Yes Edema: LLE: 2+, RLE: 2+ Neurological: Yes: Oriented Psychiatric: Yes: Oriented Labs: CBC, BMP 05/05/19 05:25 05/05/19 05:25 Laboratory Tests 05/05/19 05/05/19 05:25 05:25 WBC 6.0 Hgb 12.3 Sodium 140 Potassium 4.5 BUN 19.3 H Creatinine 0.9 Imaging - Results Chest X-ray: Report Reviewed Cat Scan: Report Reviewed Problem List - Problems (1) Diabetes Code(s): E11.9 - TYPE 2 DIABETES MELLITUS WITHOUT COMPLICATIONS (2) Hyperlipemia Code(s): E78.5 - HYPERLIPIDEMIA, UNSPECIFIED Assessment/Plan Current Medications Generic Name Dose Route Start Last Admin Trade Name Freq PRN Reason Stop Dose Admin Alprazolam 1 mg 05/05/19 22:00 Xanax - PO HS [facility] Apixaban 5 mg 05/05/19 12:00 Eliquis - PO BID [facility]E Aspirin 81 mg 05/05/19 10:00 05/05/19 11:00 Asa - PO 81 mg DAILY [facility]E Administration Atorvastatin Calcium 80 mg 05/05/19 22:00 Lipitor - PO HS [facility] Carvedilol 3.125 mg 05/05/19 10:00 05/05/19 11:00 Coreg - PO 3.125 mg BID [facility]E Administration Dicloxacillin Sodium 500 mg 05/05/19 08:30 05/05/19 14:11 Dynapen - PO 500 mg TID [facility] Administration Docusate Sodium 100 mg 05/05/19 10:00 05/05/19 11:00 Colace - PO 100 mg BID [facility] Administration Escitalopram Oxalate 10 mg 05/05/19 10:00 05/05/19 11:00 Lexapro - PO 10 mg DAILY [facility] Administration Furosemide 40 mg 05/05/19 14:00 Lasix Injection - IVPUSH BID@0600,1400 [facility] Insulin Aspart 1 vial 05/05/19 11:00 05/05/19 11:00 Novolog Vial Sliding Scale - SQ Not Given ACHS [facility] Protocol Levetiracetam 750 mg 05/05/19 10:00 05/05/19 11:00 Keppra - PO 750 mg BID [facility] Administration Levothyroxine Sodium 150 mcg/ 175 mcg 05/06/19 07:00 Levothyroxine Sodium 25 mcg PO DAILY@0700 [facility] Spironolactone 25 mg 05/05/19 10:00 05/05/19 11:00 Aldactone - PO 25 mg BID [facility] Administration Tamsulosin HCl 0.8 mg 05/05/19 22:00 Flomax - PO HS [facility] Impression 1. dyspnea 2. chf 3. anemia 4. cad 5. dm 6. a-fib 7. htn 8. hx meningioma 9. left leg dvt Plan - check applied researcher in 48 hrs - can hold next dose of lasix - repeat labs in am - stop motrin - discussed with medical team
[2019-05-05] MEDS ORDERED: ACETAMINOPHEN 325 MG TABLET (FP) ONE (17:06)
[2019-05-05] MEDS: APIXABAN 5 MG TABLET PO SCH ×2 (17:50→21:43)
[2019-05-05] MEDS ORDERED: PT OWN MED DRAWER 7, Y5N ONE (21:03)
[2019-05-05] MEDS: ALPRAZolam 0.25 MG TABLET PO SCH (21:42)
[2019-05-05] MEDS: TAMSULOSIN HCL 0.4 MG CAP PO SCH (21:42)
[2019-05-05] MEDS: ATORVASTATIN CA 80 MG TABLET (FP) PO SCH (21:43)
[2019-05-06] MEDS: INSULIN SLIDING SCALE (NOVOLOG) 1 VIAL SQ SCH ×4 (06:20→22:22)
[2019-05-06] MEDS: DICLOXACILLIN SODIUM 250 MG CAPSULE PO SCH ×3 (06:20→22:26)
[2019-05-06] MEDS ORDERED: LEVOTHYROXINE 150 MCG, LEVOTHYROXINE 25 MCG PO SCH (07:00)
[2019-05-06] MEDS: FUROSEMIDE 40 MG/4 ML INJECTABLE VIAL IVPUSH SCH ×2 (07:16→14:23)
[2019-05-06 07:56] LABS: HEMATOCRIT 37.8 % (35.4-49); HEMOGLOBIN 12.6 GM/dL (11.7-16.9); MCH 31.7 pg (25.7-33.7); MCHC 33.4 g/dl (32.0-35.9); MEAN CELL VOLUME 94.7 fl (80-96); MEAN PLT VOLUME 9.6 fl (7.5-11.1); PLATELET COUNT 143 K/MM3 (134-434); RBC 3.99 M/mm3 (4.00-5.60); RDW 16.6 % (11.9-15.9); WHITE BLOOD COUNT 5.4 K/mm3 (4.0-10.0)
[2019-05-06 07:58] LABS: INR 1.51 (0.83-1.09); PROTHROMBIN TIME (PATIENT) 17.9 SEC (9.7-13.0)
[2019-05-06 08:31] LABS: ALBUMIN 2.8 g/dl (3.4-5.0); BILIRUBIN,TOTAL 0.7 mg/dL (0.2-1); CALCIUM 8.2 mg/dL (8.5-10.1); CREATININE 0.9 mg/dL (0.55-1.3); MAGNESIUM 2.1 mg/dL (1.8-2.4); N-TERMINAL BNP 9778.7 pg/ml (5-450); PHOSPHOROUS 3.6 mg/dL (2.5-4.9); TOT PROT 5.6 g/dl (6.4-8.2)
[2019-05-06] MEDS: ESCITALOPRAM OXALATE 10 MG TABLET (FP) PO SCH (09:58)
[2019-05-06] MEDS: CARVEDILOL 3.125 MG TABLET (FP) PO SCH ×2 (09:58→22:25)
[2019-05-06] MEDS: DOCUSATE SODIUM 100 MG CAPSULE (FP) PO SCH ×2 (09:58→22:25)
[2019-05-06] MEDS: APIXABAN 5 MG TABLET PO SCH ×2 (09:58→22:24)
[2019-05-06] MEDS: ASPIRIN 81 MG CHEWABLE TABLETS PO SCH (09:58)
[2019-05-06] MEDS: levETIRAcetam 250 MG TABLET (FP) PO SCH ×2 (09:58→22:24)
--- NOTE | 2019-05-06 10:52 | PN ---
Progress Note (short form) - Note Progress Note: comfortable Vital Signs - 24 hr 05/06/19 05/06/19 05/06/19 01:00 05:39 09:00 Temperature 97.7 F 97.8 F 97.8 F Pulse Rate 81 74 85 Respiratory 20 18 18 Rate Blood Pressure 101/51 L 107/60 107/52 L O2 Sat by Pulse 99 Oximetry (%) 05/06/19 05/06/19 14:10 17:00 Temperature 98.7 F 98.4 F Pulse Rate 74 75 Respiratory 20 20 Rate Blood Pressure 91/58 L 114/54 L O2 Sat by Pulse Oximetry (%) Current Medications Generic Name Dose Route Start Last Admin Trade Name Freq PRN Reason Stop Dose Admin Alprazolam 1 mg 05/05/19 22:00 05/05/19 21:42 Xanax - PO 1 mg HS [facility] Administration Apixaban 5 mg 05/05/19 12:00 05/06/19 09:58 Eliquis - PO 5 mg BID [facility] Administration Aspirin 81 mg 05/05/19 10:00 05/06/19 09:58 Asa - PO 81 mg DAILY [facility] Administration Atorvastatin Calcium 80 mg 05/05/19 22:00 05/05/19 21:43 Lipitor - PO 80 mg HS [facility] Administration Carvedilol 3.125 mg 05/05/19 10:00 05/06/19 09:58 Coreg - PO 3.125 mg BID [facility] Administration Dicloxacillin Sodium 500 mg 05/05/19 21:45 05/06/19 14:24 Dynapen - PO 500 mg TID [facility] Administration Docusate Sodium 100 mg 05/05/19 10:00 05/06/19 09:58 Colace - PO 100 mg BID [facility] Administration Escitalopram Oxalate 10 mg 05/05/19 10:00 05/06/19 09:58 Lexapro - PO 10 mg DAILY [facility] Administration Furosemide 40 mg 05/05/19 14:00 05/06/19 14:23 Lasix Injection - IVPUSH 40 mg BID@0600,1400 [facility] Administration Insulin Aspart 1 vial 05/05/19 11:00 05/06/19 18:01 Novolog Vial Sliding Scale - SQ Not Given ACHS [facility] Protocol Levetiracetam 750 mg 05/05/19 10:00 05/06/19 09:58 Keppra - PO 750 mg BID [facility] Administration Levothyroxine Sodium 150 mcg/ 175 mcg 05/06/19 07:00 05/06/19 07:32 Levothyroxine Sodium 25 mcg PO 175 mcg DAILY@0700 [facility] Administration Spironolactone 25 mg 05/05/19 10:00 05/05/19 11:00 Aldactone - PO 25 mg BID [facility] Administration Tamsulosin HCl 0.8 mg 05/05/19 22:00 05/05/19 21:42 Flomax - PO 0.8 mg HS [facility] Administration Laboratory Results - last 24 hr 05/05/19 05/06/19 05/06/19 21:40 05:22 06:18 WBC 5.4 RBC 3.99 L Hgb 12.6 Hct 37.8 MCV 94.7 MCH 31.7 MCHC 33.4 RDW 16.6 H Plt Count 143 MPV 9.6 PT with INR INR Sodium Potassium Chloride Carbon Dioxide Anion Gap BUN Creatinine Est GFR (CKD-EPI)AfAm Est GFR (CKD-EPI)NonAf POC Glucometer 77 86 Random Glucose Calcium Phosphorus Magnesium Total Bilirubin AST ALT Alkaline Phosphatase B-Natriuretic Peptide Total Protein Albumin TSH 05/06/19 05/06/19 05/06/19 06:18 06:18 11:51 WBC RBC Hgb Hct MCV MCH MCHC RDW Plt Count MPV PT with INR 17.90 H INR 1.51 H Sodium 140 Potassium 4.0 Chloride 107 Carbon Dioxide 27 Anion Gap 6 L BUN 19.0 H Creatinine 0.9 Est GFR (CKD-EPI)AfAm 94.48 Est GFR (CKD-EPI)NonAf 81.52 POC Glucometer 160 Random Glucose 79 Calcium 8.2 L Phosphorus 3.6 Magnesium 2.1 Total Bilirubin 0.7 AST 21 ALT 17 Alkaline Phosphatase 135 H B-Natriuretic Peptide 9778.7 H Total Protein 5.6 L Albumin 2.8 L TSH 3.88 H D 05/06/19 05/06/19 17:28 20:29 WBC RBC Hgb Hct MCV MCH MCHC RDW Plt Count MPV PT with INR INR Sodium Potassium Chloride Carbon Dioxide Anion Gap BUN Creatinine Est GFR (CKD-EPI)AfAm Est GFR (CKD-EPI)NonAf POC Glucometer 103 114 Random Glucose Calcium Phosphorus Magnesium Total Bilirubin AST ALT Alkaline Phosphatase B-Natriuretic Peptide Total Protein Albumin TSH S1 s2 Irregular Lungs decreased Abd- soft, NT Edema+ PLAN CHF -- on lasix and aldactone weight is decreasing renal function stable Afib -- rate is controlled, on ASA DVT-- on eliquis now monitor for any signs of bleeding spoke with Vascular monitor CBC Problem List - Problems (1) Systolic CHF, acute on chronic Code(s): I50.23 - ACUTE ON CHRONIC SYSTOLIC (CONGESTIVE) HEART FAILURE (2) Deep vein thrombosis (DVT) of left lower extremity Code(s): I82.402 - ACUTE EMBOLISM AND THOMBOS UNSP DEEP VEINS OF L LOW EXTREM Qualifiers: Chronicity: acute (3) Atrial fibrillation Code(s): I48.91 - UNSPECIFIED ATRIAL FIBRILLATION Qualifiers: Atrial fibrillation type: persistent Qualified Code(s): I48.1 - Persistent atrial fibrillation (4) CAD (coronary artery disease) Code(s): I25.10 - ATHSCL HEART DISEASE OF [place] CORONARY ARTERY W/O ANG PCTRS Qualifiers: Coronary Disease-Associated Artery/Lesion type: bypass graft [place] vs. transplanted heart: [place] heart Associated angina: angina presence unspecified Qualified Code(s): I25.810 - Atherosclerosis of coronary artery bypass graft(s) without angina pectoris
--- NOTE | 2019-05-06 11:23 | CONSULT ---
- Consultation REQUESTING PROVIDER: VASCULAR SURGERY - Ron Echols CONSULT REQUEST: We have been asked to surgically evaluate this patient for LLE DVT PCP: Ange Romano HPI: Called to eval 78yo male w/ PMHx as noted below. Presents to [facility] ED w/ c/ o SOB with associated CP. Currently being medically managed for multiple medical problems. Per medical records, patient recently had PE on 01/2019 and was started on Eliquis secondary to fall risk by his PCP. Since then, patient on 81mg ASA. Given his history a LE U/S was ordered and identified an LLE DVT...specifically in the proximal 1/3 of left femoral vein as well as thrombus within the GSV. RLE unremarkable. Chest CT: partially loculated RLL effusion moderate in size w/ atelectatic changes. No evidence of PE. Patient was started on Eliquis 5mg daily and resumed taking his ASA 81 mg daily. PMHx: CVA. Peripheral Neuropathy. Meningioma. AFIB. CAD. CHF. DVT. HTN. HLD. PE 01/20, BPH. Anemia. Anxiety. Depression. Chronic LBP. Left Knee OA. DM, Hypothyroidism PSHx: Appendectomy, CABG (4 vessles). Parietal Meningioma Resection 2001 Home Medications Alprazolam [Xanax] 1 mg PO HS 02/18/19 Atorvastatin Ca [Lipitor] 80 mg PO HS 02/18/19 Carvedilol [Coreg -] 3.125 mg PO TID 02/18/19 Dicloxacillin Sodium 500 mg PO Q8H 02/18/19 Docusate Sodium [Colace] 100 mg PO BID 02/18/19 Escitalopram Oxalate [Lexapro -] 10 mg PO DAILY 02/18/19 Levetiracetam [Keppra] 750 mg PO BID 02/18/19 Levothyroxine Sodium [Synthroid] 175 mcg PO DAILY 02/18/19 Tamsulosin HCl [Flomax] 0.8 mg PO HS 02/18/19 Tramadol HCl [Tramadol HCl ER] 50 mg PO QID PRN 02/18/19 Aspirin [ASA -] 81 mg PO DAILY 05/05/19 Ibuprofen [Ibu] 600 mg PO TID 05/05/19 Allergies NKDA Strawberries --> hives ROS: Constitutional: reports: Malaise. denies: Chills Eyes: reports: No Symptoms HENT: reports: No Symptoms Neck: reports: No Symptoms Cardiovascular: reports: Edema Respiratory: reports: SOB Gastrointestinal: reports: No Symptoms Genitourinary: reports: No Symptoms Musculoskeletal: reports: Muscle Weakness Integumentary: reports: No Symptoms Neurological: reports: No Symptoms Endocrine: reports: No Symptoms Hematology/Lymphatic: reports: No Symptoms PE: GENERAL: Awake, alert, and fully oriented, NAD LUNGS: CTA bilat HEART: RRR ABDOMEN: Obese habitus. Soft, NT. ND. Normoactive bowel sounds, no guarding, no rebound, no masses. No organomegaly. LE: 2+ pulses, warm, well-perfused. LLE calf tenderness. +2 edema bilat. 2+ DP/ PT bilat. Venous stasis changes bilat. PSYCH: Cooperative. Good eye contact. Appropriate mood and affect. SKIN: Warm, dry, normal turgor, no rashes or lesions noted. Last Vital Signs Temp Pulse Resp BP Pulse Ox 97.8 F 85 18 107/52 L 99 05/06/19 09:00 05/06/19 09:00 05/06/19 09:00 05/06/19 09:00 05/06/19 09:00 CBC, BMP 05/06/19 06:18 05/06/19 06:18 INR, PTT INR 1.51 (0.83-1.09) H 05/06/19 06:18 Hepatic Panel Total Bilirubin 0.7 mg/dL (0.2-1) 05/06/19 06:18 AST 21 U/L (15-37) 05/06/19 06:18 ALT 17 U/L (13-61) 05/06/19 06:18 Alkaline Phosphatase 135 U/L (45-117) H 05/06/19 06:18 Albumin 2.8 g/dl (3.4-5.0) L 05/06/19 06:18 Troponin, BNP 05/06/19 06:18 B-Natriuretic Peptide 9778.7 H Problem List - Problems (1) Deep vein thrombosis (DVT) of left lower extremity Assessment/Plan: Cont ASA 81 mg daily Eliquis 3-6 months If concerns for bleeding, please send patient to IR for IVC Filter insertion as Dr. Echols will be away on vacation starting tomorrow. Cont Medical Management Above plan discussed with Dr. Echols and agrees. Code(s): I82.402 - ACUTE EMBOLISM AND THOMBOS UNSP DEEP VEINS OF L LOW EXTREM Qualifiers: Chronicity: acute (2) Diabetes Code(s): E11.9 - TYPE 2 DIABETES MELLITUS WITHOUT COMPLICATIONS (3) Systolic CHF, acute on chronic Code(s): I50.23 - ACUTE ON CHRONIC SYSTOLIC (CONGESTIVE) HEART FAILURE (4) Anxiety Code(s): F41.9 - ANXIETY DISORDER, UNSPECIFIED (5) Congestive heart disease Code(s): I50.9 - HEART FAILURE, UNSPECIFIED Qualifiers: Heart failure type: combined systolic and diastolic Heart failure chronicity: acute on chronic Qualified Code(s): I50.43 - Acute on chronic combined systolic (congestive) and diastolic (congestive) heart failure (6) HTN (hypertension) Code(s): I10 - ESSENTIAL (PRIMARY) HYPERTENSION Qualifiers: Hypertension type: essential hypertension Qualified Code(s): I10 - Essential (primary) hypertension (7) IDDM (insulin dependent diabetes mellitus) Code(s): E11.9 - TYPE 2 DIABETES MELLITUS WITHOUT COMPLICATIONS; Z79.4 - SHELTER (CURRENT) USE OF INSULIN Visit type - Case Type Case Type: ED Admission - Emergency Emergency Visit: Yes ED Registration Date: 05/05/19 Care time: The patient presented to the Emergency Department on the above date and was hospitalized for further evaluation of their emergent condition. - New patient This patient is new to me today: Yes Date on this admission: 05/06/19
--- NOTE | 2019-05-06 11:41 | PN ---
Progress Note, Physician History of Present Illness: Pt seen and examined at bedside. He is awake and alert. he denies shortness of breath. - Current Medication List Current Medications: Active Medications Alprazolam (Xanax -) 1 mg PO HS [facility] Last Admin: 05/05/19 21:42 Dose: 1 mg Apixaban (Eliquis -) 5 mg PO BID [facility] Last Admin: 05/06/19 09:58 Dose: 5 mg Aspirin (Asa -) 81 mg PO DAILY [facility] Last Admin: 05/06/19 09:58 Dose: 81 mg Atorvastatin Calcium (Lipitor -) 80 mg PO HS [facility] Last Admin: 05/05/19 21:43 Dose: 80 mg Carvedilol (Coreg -) 3.125 mg PO BID [facility] Last Admin: 05/06/19 09:58 Dose: 3.125 mg Dicloxacillin Sodium (Dynapen -) 500 mg PO TID [facility] Last Admin: 05/06/19 06:20 Dose: 500 mg Docusate Sodium (Colace -) 100 mg PO BID [facility] Last Admin: 05/06/19 09:58 Dose: 100 mg Escitalopram Oxalate (Lexapro -) 10 mg PO DAILY [facility] Last Admin: 05/06/19 09:58 Dose: 10 mg Furosemide (Lasix Injection -) 40 mg IVPUSH BID@0600,1400 [facility] Last Admin: 05/06/19 07:16 Dose: 40 mg Insulin Aspart (Novolog Vial Sliding Scale -) 1 vial SQ [facility]; Protocol Last Admin: 05/06/19 06:20 Dose: Not Given Levetiracetam (Keppra -) 750 mg PO BID [facility] Last Admin: 05/06/19 09:58 Dose: 750 mg Levothyroxine Sodium 150 mcg/ (Levothyroxine Sodium 25 mcg) 175 mcg PO DAILY@ 0700 [facility] Last Admin: 05/06/19 07:32 Dose: 175 mcg Spironolactone (Aldactone -) 25 mg PO BID [facility] Last Admin: 05/05/19 11:00 Dose: 25 mg Tamsulosin HCl (Flomax -) 0.8 mg PO HS [facility] Last Admin: 05/05/19 21:42 Dose: 0.8 mg - Objective Vital Signs: Vital Signs Temperature 97.8 F 05/06/19 09:00 Pulse Rate 85 05/06/19 09:00 Respiratory Rate 18 07/03/19 09:00 Blood Pressure 107/52 L 05/06/19 09:00 O2 Sat by Pulse Oximetry (%) 99 05/06/19 09:00 Constitutional: Yes: Calm Eyes: Yes: Conjunctiva Clear HENT: Yes: Atraumatic Cardiovascular: Yes: S1, S2 Respiratory: Yes: CTA Bilaterally Gastrointestinal: Yes: Soft Genitourinary: Yes: WNL Musculoskeletal: Yes: Joint Stiffness Edema: Yes Edema: LLE: 2+, RLE: 2+ Neurological: Yes: Oriented Psychiatric: Yes: Oriented Labs: CBC, BMP 05/06/19 06:18 05/06/19 06:18 INR, PTT INR 1.51 (0.83-1.09) H 05/06/19 06:18 Problem List - Problems (1) Diabetes Code(s): E11.9 - TYPE 2 DIABETES MELLITUS WITHOUT COMPLICATIONS (2) Hyperlipemia Code(s): E78.5 - HYPERLIPIDEMIA, UNSPECIFIED Assessment/Plan Current Medications Generic Name Dose Route Start Last Admin Trade Name [place] PRN Reason Stop Dose Admin Alprazolam 1 mg 05/05/19 22:00 05/05/19 21:42 Xanax - PO 1 mg HS [facility] Administration Apixaban 5 mg 05/05/19 12:00 05/06/19 09:58 Eliquis - PO 5 mg BID [facility] Administration Aspirin 81 mg 05/05/19 10:00 05/06/19 09:58 Asa - PO 81 mg DAILY [facility] Administration Atorvastatin Calcium 80 mg 05/05/19 22:00 05/05/19 21:43 Lipitor - PO 80 mg HS [facility] Administration Carvedilol 3.125 mg 05/05/19 10:00 05/06/19 09:58 Coreg - PO 3.125 mg BID [facility] Administration Dicloxacillin Sodium 500 mg 05/05/19 21:45 05/06/19 06:20 Dynapen - PO 500 mg TID [facility] Administration Docusate Sodium 100 mg 05/05/19 10:00 05/06/19 09:58 Colace - PO 100 mg BID [facility] Administration Escitalopram Oxalate 10 mg 05/05/19 10:00 05/06/19 09:58 Lexapro - PO 10 mg DAILY [facility] Administration Furosemide 40 mg 05/05/19 14:00 05/06/19 07:16 Lasix Injection - IVPUSH 40 mg BID@0600,1400 [facility] Administration Insulin Aspart 1 vial 05/05/19 11:00 05/06/19 06:20 Novolog Vial Sliding Scale - SQ Not Given ACHS [facility] Protocol Levetiracetam 750 mg 05/05/19 10:00 05/06/19 09:58 Keppra - PO 750 mg BID [facility] Administration Levothyroxine Sodium 150 mcg/ 175 mcg 05/06/19 07:00 05/06/19 07:32 Levothyroxine Sodium 25 mcg PO 175 mcg DAILY@0700 [facility] Administration Spironolactone 25 mg 05/05/19 10:00 05/05/19 11:00 Aldactone - PO 25 mg BID [facility] Administration Tamsulosin HCl 0.8 mg 05/05/19 22:00 05/05/19 21:42 Flomax - PO 0.8 mg HS [facility] Administration Impression 1. dyspnea 2. chf 3. anemia 4. cad 5. dm 6. a-fib 7. htn 8. hx meningioma 9. left leg dvt Plan - check bmp in am - renal function is stable - resume diuretics - discussed with medical team - do not restart motrin for now
--- NOTE | 2019-05-06 15:07 | CONS ---
DATE OF CONSULTATION: DATE OF DICTATION: 05/06/2019 CONSULTATION REQUESTED BY: Ange Romano MD CARDIOLOGY CONSULTATION The patient is a 78-year-old gentleman with history of coronary artery disease, status post coronary artery bypass grafting back in the , noninsulin diabetes mellitus, hypertension, hypertensive cardiovascular disease, congestive heart failure, severe left ventricular systolic dysfunction, history of mitral valve prolapse, mitral regurgitation, tricuspid regurgitation, history of atrial fibrillation, dyslipidemia, hypothyroidism. The patient states that for several days, he was having a persistent cough, accompanied by clear expectoration, which progressively got worse. He also noticed that for the past few days, he was having progressive pedal edema. There is history of chronic dyspnea. No history of paroxysmal nocturnal dyspnea. He states that he sleeps flat in bed. According to the admission notes, patient apparently has not been taking Lasix and Aldactone for some time. PAST HISTORY: As mentioned in the history of present illness. 1. History of neuropathy. 2. ? history of a cerebrovascular event with paralysis of the right upper extremity. 3. History of meningioma. 4. History of deep vein thrombosis and pulmonary thromboembolism. 5. History of BPH. 6. History of osteoarthritis. SURGICAL HISTORY: 1. Status post appendectomy. 2. Status post coronary artery bypass grafting. 3. Status post surgery for meningioma. SOCIAL HISTORY: He is a , retired, has a daughter who is healthy. He used to smoke from the age of 15 to 25 and used to smoke approximately 2 packs of cigarettes per day and at that time he drank heavily. No history of drug use. FAMILY HISTORY: Mother in her 70s, apparently due to a myocardial infarction. Father in his 80s, apparently related to aspiration. He has 1 brother and a sister. The brother had prostate cancer and the sister apparently had bilateral knee replacements. ALLERGIES: STRAWBERRIES. None to medication. CURRENT MEDICATIONS: 1. Flomax 0.8 mg p.o. daily. 2. Eliquis 5 mg p.o. b.i.d. 3. Keppra 750 mg p.o. b.i.d. 4. Lexapro 10 mg p.o. daily. 5. Xanax 1 mg p.o. daily nightly. 6. Coreg 3.125 mg p.o. b.i.d. 7. Colace 100 mg p.o. b.i.d. 8. Atorvastatin 80 mg p.o. daily. 9. NovoLog insulin via sliding scale. 10. Furosemide 40 mg IV b.i.d. 11. Spironolactone 25 mg p.o. daily. 12. Aspirin 81 mg p.o. daily. 13. Dynapen 500 mg p.o. t.i.d. 14. Levothyroxine 175 mcg p.o. daily. REVIEW OF SYSTEMS: Constitutional: No history of chills, fever or night sweats. No history of unintentional weight loss. HEENT: No history of headaches. History of bilateral macular degeneration, right being worse than left. History of blurred vision. No history of epistaxis or hoarseness. No history of deafness or tinnitus. Cardiovascular: See history of present illness. Respiratory: See history of present illness. No history of tuberculosis. No history of hemoptysis. Gastrointestinal: No history of nausea, vomiting, melena, or hematemesis. No history of change in bowel habits. No history of abdominal pain or discomfort. Endocrine: See history of present illness. No history of intolerance to cold or warm weather. Neurological: See history of present illness. History of peripheral neuropathy. No history of seizures or syncope. Musculoskeletal: History of intermittent myalgias and muscular weakness involving the lower extremities. Hematological: No history of bleeding, ecchymosis, or anemia. Genitourinary: History of nocturia. No history of hematuria. Occasional urgency. EXAMINATION: General: A 78-year-old gentleman who is in no acute distress. There is no pallor, cyanosis, clubbing, or jaundice. Vital Signs: Weight 91.081 kg. Blood pressure 107/52 mmHg. Pulse 85 beats per minute and irregular. Respiration 18 per minute. Temperature 97.8 degrees Fahrenheit. Neck: Supple. Jugular venous distention at 20 degrees with a positive hepatojugular reflux. Carotids were 2+. Upstrokes were normal. No bruits are heard and no thyromegaly was appreciated. Heart: PMI was in the 5th intercostal space. No heaves or thrills. Heart sounds were distant. Grade 1/6 decrescendo systolic murmur was heard at the apex and along the left sternal border. No diastolic murmur or gallops were heard. Lungs: Clear on auscultation. Abdomen: Soft, nontender. No hepatosplenomegaly or palpable masses were felt. Bowel sounds are present. No bruits were heard. Extremities: No calf tenderness. Bilateral 2+ pitting edema involving the lower extremities. No calf tenderness was elicited. There were scars involving both lower extremities. The femoral pulses were 1 to 2+. Dorsalis pedis and posterior tibial pulses could not be palpated. There were bilateral stasis changes. The right upper extremity was contracted and he was unable to flex the fingers. LABORATORY DATA: May 06, 2019, CBC: WBC 5400, hemoglobin was 12.6 g/dL, platelet count was 143,000. Chemistry: Sodium 140, potassium 4.0, chloride 107, CO2 27 mmol/L, BUN 19, creatinine 0.9 mg/dL. Calcium 8.2 mg/dL. Liver function tests with slightly elevated alkaline phosphatase of 155. BNP was 9778.7 pcg/mL. Total protein was 5.6 g/dL, albumin was 2.8 g/dL (low). TSH was 3.88. X-RAY OF CHEST, May 05, 2019: Single view of the chest reveals a large heart, slightly unfolded aorta, sternal sutures and clips, congestive changes, a right effusion and some atelectasis or infiltrate at the left base. Correlation is recommended. ECG, May 05, 2019: Atrial fibrillation with premature ventricular aberrantly conducted complexes. Left axis deviation. Inferior infarct as cited on or before 23 July 2006. When compared to ECG of January 25, 2019, no significant change was found. ECHOCARDIOGRAM INTERPRETATION SUMMARY: 1. There is mild concentric left ventricular hypertrophy. 2. Left ventricular systolic function is severely reduced. 3. Ejection fraction 30%. 4. There is severe global hypokinesia of the left ventricle. 5. The right ventricle is moderately dilated. 6. The right ventricular systolic function is severely reduced. 7. The left atrium is mildly dilated. 8. Right atrium is moderately dilated. 9. There is mild mitral valvular thickening. 10. There is mild mitral annular calcification. 11. Moderate to severe eccentric posteriorly directed mitral regurgitation. 12. Mild tricuspid regurgitation. 13. There is moderate pulmonary hypertension. 14. There is mild aortic sclerosis. 15. Trace aortic regurgitation. IMPRESSION: 1. Clinic presentation consistent with congestive heart failure [place] Heart Classification 3. 2. Severe left ventricular systolic dysfunction. 3. History of hypertension, hypertensive cardiovascular disease, currently normotensive. 4. Permanent atrial fibrillation. 5. Mitral valvular disease with moderate to severe mitral regurgitation. 6. Hyperlipidemia. 7. [id number] diabetes mellitus. 8. History of deep vein thrombosis. 9. History of pulmonary thromboembolism. 10. Coronary artery disease, status post coronary artery bypass grafting. 11. Chest pain syndrome, clinical presentation is suggestive of pain of musculoskeletal origin, cannot exclude recurrence of angina pectoris. RECOMMENDATIONS: 1. Consider increasing the dose of carvedilol. 2. Close followup of daily weight. 3. Patient may benefit from addition of an MARY or an ARB under close observation of electrolytes. 4. In view of severe reduction of EF below 35%, patient is a candidate for AICD for primary prophylaxis. 5. Prognosis guarded. Thank you for your referral. Yours sincerely, YSABEL JACKSON M.D. [id number]
[2019-05-06] MEDS: ALPRAZolam 0.25 MG TABLET PO SCH (22:24)
[2019-05-06] MEDS: ATORVASTATIN CA 80 MG TABLET (FP) PO SCH (22:25)
[2019-05-06] MEDS: TAMSULOSIN HCL 0.4 MG CAP PO SCH (22:25)
[2019-05-06] MEDS: SPIRONOLACTONE 25 MG TABLET (FP) PO SCH (22:25)
[2019-05-07] MEDS: ACETAMINOPHEN 325 MG TABLET (FP) PO PRN ×2 (00:36→11:32)
[2019-05-07] MEDS ORDERED: LEVOTHYROXINE NA 100 MCG TABLET (FP) ONE (06:01)
[2019-05-07] MEDS ORDERED: LEVOTHYROXINE NA 75 MCG TABLET (FP) ONE (06:01)
[2019-05-07] MEDS: LEVOTHYROXINE 100 MCG, LEVOTHYROXINE 75 MCG PO SCH (06:51)
[2019-05-07] MEDS: INSULIN SLIDING SCALE (NOVOLOG) 1 VIAL SQ SCH ×4 (06:52→23:16)
[2019-05-07] MEDS: FUROSEMIDE 40 MG/4 ML INJECTABLE VIAL IVPUSH SCH ×2 (06:52→15:25)
[2019-05-07] MEDS: DICLOXACILLIN SODIUM 250 MG CAPSULE PO SCH ×3 (06:52→23:18)
[2019-05-07 07:56] LABS: HEMATOCRIT 37.7 % (35.4-49); HEMOGLOBIN 12.4 GM/dL (11.7-16.9); MCH 30.9 pg (25.7-33.7); MCHC 32.9 g/dl (32.0-35.9); MEAN CELL VOLUME 93.7 fl (80-96); MEAN PLT VOLUME 9.1 fl (7.5-11.1); RBC 4.02 M/mm3 (4.00-5.60); RDW 16.2 % (11.9-15.9); WHITE BLOOD COUNT 4.9 K/mm3 (4.0-10.0)
[2019-05-07 08:36] LABS: BLOOD UREA NITROGEN 19.4 mg/dL (7-18); CALCIUM 8.2 mg/dL (8.5-10.1); CREATININE 0.8 mg/dL (0.55-1.3); POTASSIUM 3.5 mmol/L (3.5-5.1)
[2019-05-07 08:38] LABS: PLATELET COUNT 147 K/MM3 (134-434)
--- NOTE | 2019-05-07 09:26 | PN ---
Progress Note, Physician History of Present Illness: Pt seen and examined at bedside. He is awake and alert. He denies shortness of breath. - Current Medication List Current Medications: Active Medications Acetaminophen (Tylenol -) 650 mg PO Q6H PRN PRN Reason: PAIN LEVEL 1-5 Last Admin: 05/07/19 00:36 Dose: 650 mg Alprazolam (Xanax -) 1 mg PO [facility] Last Admin: 05/06/19 22:24 Dose: 1 mg Apixaban (Eliquis -) 5 mg PO BID [facility] Last Admin: 05/06/19 22:24 Dose: 5 mg Aspirin (Asa -) 81 mg PO DAILY [facility] Last Admin: 05/06/19 09:58 Dose: 81 mg Atorvastatin Calcium (Lipitor -) 80 mg PO [facility] Last Admin: 05/06/19 22:25 Dose: 80 mg Carvedilol (Coreg -) 3.125 mg PO BID [facility] Last Admin: 05/06/19 22:25 Dose: 3.125 mg Dicloxacillin Sodium (Dynapen -) 500 mg PO TID [facility] Last Admin: 05/07/19 06:52 Dose: 500 mg Docusate Sodium (Colace -) 100 mg PO BID [facility] Last Admin: 05/06/19 22:25 Dose: 100 mg Escitalopram Oxalate (Lexapro -) 10 mg PO DAILY [facility] Last Admin: 05/06/19 09:58 Dose: 10 mg Furosemide (Lasix Injection -) 40 mg IVPUSH BID@0600,1400 [facility] Last Admin: 05/07/19 06:52 Dose: 40 mg Insulin Aspart (Novolog Vial Sliding Scale -) 1 vial SQ [facility]; Protocol Last Admin: 05/07/19 06:52 Dose: Not Given Levetiracetam (Keppra -) 750 mg PO BID [facility] Last Admin: 05/06/19 22:24 Dose: 750 mg Levothyroxine Sodium 100 mcg/ (Levothyroxine Sodium 75 mcg) 175 mcg PO DAILY@ 0700 [facility] Last Admin: 05/07/19 06:51 Dose: 175 mcg Spironolactone (Aldactone -) 25 mg PO BID [facility] Last Admin: 05/06/19 22:25 Dose: 25 mg Tamsulosin HCl (Flomax -) 0.8 mg PO [facility] Last Admin: 05/06/19 22:25 Dose: 0.8 mg - Objective Vital Signs: Vital Signs Temperature 98.5 F 05/07/19 05:00 Pulse Rate 82 05/07/19 05:00 Respiratory Rate 20 05/07/19 05:00 Blood Pressure 120/59 L 05/07/19 05:00 O2 Sat by Pulse Oximetry (%) 100 05/06/19 21:00 Constitutional: Yes: Calm Eyes: Yes: Conjunctiva Clear HENT: Yes: Atraumatic Neck: Yes: Supple Cardiovascular: Yes: S1, S2 Gastrointestinal: Yes: Normal Bowel Sounds, Soft Genitourinary: Yes: WNL Musculoskeletal: Yes: WNL Edema: Yes Edema: LLE: 1+, RLE: 1+ Neurological: Yes: Oriented Psychiatric: Yes: Oriented Labs: CBC, BMP 05/07/19 07:30 05/07/19 07:30 INR, PTT INR 1.51 (0.83-1.09) H 05/06/19 06:18 Problem List - Problems (1) Diabetes Code(s): E11.9 - TYPE 2 DIABETES MELLITUS WITHOUT COMPLICATIONS (2) Hyperlipemia Code(s): E78.5 - HYPERLIPIDEMIA, UNSPECIFIED Assessment/Plan Current Medications Generic Name Dose Route Start Last Admin Trade Name Freq PRN Reason Stop Dose Admin Acetaminophen 650 mg 05/06/19 23:03 05/07/19 00:36 Tylenol - PO 650 mg Q6H PRN Administration PAIN LEVEL 1-5 Alprazolam 1 mg 05/05/19 22:00 05/06/19 22:24 Xanax - PO 1 mg HS [facility] Administration Apixaban 5 mg 05/05/19 12:00 05/06/19 22:24 Eliquis - PO 5 mg BID [facility] Administration Aspirin 81 mg 05/05/19 10:00 05/06/19 09:58 Asa - PO 81 mg DAILY [facility] Administration Atorvastatin Calcium 80 mg 05/05/19 22:00 05/06/19 22:25 Lipitor - PO 80 mg HS [facility] Administration Carvedilol 3.125 mg 05/05/19 10:00 05/06/19 22:25 Coreg - PO 3.125 mg BID [facility] Administration Dicloxacillin Sodium 500 mg 05/05/19 21:45 05/07/19 06:52 Dynapen - PO 500 mg TID [facility] Administration Docusate Sodium 100 mg 05/05/19 10:00 05/06/19 22:25 Colace - PO 100 mg BID [facility] Administration Escitalopram Oxalate 10 mg 05/05/19 10:00 05/06/19 09:58 Lexapro - PO 10 mg DAILY [facility] Administration Furosemide 40 mg 05/05/19 14:00 05/07/19 06:52 Lasix Injection - IVPUSH 40 mg BID@0600,1400 [facility] Administration Insulin Aspart 1 vial 05/05/19 11:00 05/07/19 06:52 Novolog Vial Sliding Scale - SQ Not Given ACHS [facility] Protocol Levetiracetam 750 mg 05/05/19 10:00 05/06/19 22:24 Keppra - PO 750 mg BID [facility] Administration Levothyroxine Sodium 100 mcg/ 175 mcg 05/07/19 07:00 05/07/19 06:51 Levothyroxine Sodium 75 mcg PO 175 mcg DAILY@0700 [facility] Administration Spironolactone 25 mg 05/05/19 10:00 05/06/19 22:25 Aldactone - PO 25 mg BID [facility] Administration Tamsulosin HCl 0.8 mg 05/05/19 22:00 05/06/19 22:25 Flomax - PO 0.8 mg HS [facility] Administration Impression 1. dyspnea 2. chf 3. anemia 4. cad 5. dm 6. a-fib 7. htn 8. hx meningioma 9. left leg dvt Plan - renal function is stable - can resume home doses of diuretics - no renal damage from ct angio - avoid regular motril use of possible - will follow prn
--- NOTE | 2019-05-07 10:03 | PN ---
Progress Note (short form) - Note Progress Note: comfortable lying flat in bed no sob no chest pain Vital Signs - 24 hr 05/06/19 05/06/19 05/06/19 14:10 17:00 21:00 Temperature 98.7 F 98.4 F 97.9 F Pulse Rate 74 75 78 Respiratory 20 20 20 Rate Blood Pressure 91/58 L 114/54 L 104/70 O2 Sat by Pulse 100 Oximetry (%) 05/07/19 05/07/19 01:00 05:00 Temperature 97.9 F 98.5 F Pulse Rate 79 82 Respiratory 20 20 Rate Blood Pressure 115/67 120/59 L O2 Sat by Pulse Oximetry (%) Current Medications Generic Name Dose Route Start Last Admin Trade Name Freq PRN Reason Stop Dose Admin Acetaminophen 650 mg 05/06/19 23:03 05/07/19 00:36 Tylenol - PO 650 mg Q6H PRN Administration PAIN LEVEL 1-5 Alprazolam 1 mg 05/05/19 22:00 05/06/19 22:24 Xanax - PO 1 mg HS [facility] Administration Apixaban 5 mg 05/05/19 12:00 05/06/19 22:24 Eliquis - PO 5 mg BID [facility] Administration Aspirin 81 mg 05/05/19 10:00 05/06/19 09:58 Asa - PO 81 mg DAILY [facility] Administration Atorvastatin Calcium 80 mg 05/05/19 22:00 05/06/19 22:25 Lipitor - PO 80 mg HS [facility] Administration Carvedilol 3.125 mg 05/05/19 10:00 05/06/19 22:25 Coreg - PO 3.125 mg BID [facility] Administration Dicloxacillin Sodium 500 mg 05/05/19 21:45 05/07/19 06:52 Dynapen - PO 500 mg TID [facility] Administration Docusate Sodium 100 mg 05/05/19 10:00 05/06/19 22:25 Colace - PO 100 mg BID [facility] Administration Enalapril Maleate 2.5 mg 05/08/19 10:00 Vasotec - PO DAILY [facility] Escitalopram Oxalate 10 mg 05/05/19 10:00 05/06/19 09:58 Lexapro - PO 10 mg DAILY [facility] Administration Furosemide 40 mg 05/05/19 14:00 05/07/19 06:52 Lasix Injection - IVPUSH 40 mg BID@0600,1400 [facility] Administration Insulin Aspart 1 vial 05/05/19 11:00 05/07/19 06:52 Novolog Vial Sliding Scale - SQ Not Given ACHS [facility] Protocol Levetiracetam 750 mg 05/05/19 10:00 05/06/19 22:24 Keppra - PO 750 mg BID [facility] Administration Levothyroxine Sodium 100 mcg/ 175 mcg 05/07/19 07:00 05/07/19 06:51 Levothyroxine Sodium 75 mcg PO 175 mcg DAILY@0700 [facility] Administration Spironolactone 25 mg 05/05/19 10:00 05/06/19 22:25 Aldactone - PO 25 mg BID [facility] Administration Tamsulosin HCl 0.8 mg 05/05/19 22:00 05/06/19 22:25 Flomax - PO 0.8 mg HS [facility] Administration Laboratory Results - last 24 hr 05/06/19 05/06/19 05/06/19 11:51 17:28 20:29 WBC RBC Hgb Hct MCV MCH MCHC RDW Plt Count MPV Sodium Potassium Chloride Carbon Dioxide Anion Gap BUN Creatinine Est GFR (CKD-EPI)AfAm Est GFR (CKD-EPI)NonAf POC Glucometer 160 103 114 Random Glucose Calcium 05/07/19 05/07/19 05/07/19 06:53 07:30 07:30 WBC 4.9 RBC 4.02 Hgb 12.4 Hct 37.7 MCV 93.7 MCH 30.9 MCHC 32.9 RDW 16.2 H Plt Count 147 MPV 9.1 Sodium 140 Potassium 3.5 Chloride 104 Carbon Dioxide 30 Anion Gap 6 L BUN 19.4 H Creatinine 0.8 Est GFR (CKD-EPI)AfAm 99.17 Est GFR (CKD-EPI)NonAf 85.56 POC Glucometer 83 Random Glucose 82 Calcium 8.2 L S1 s2 Irregular Lungs decreased , no crackles Abd- soft, NT Edema+ PLAN CHF -- on lasix and aldactone weight is decreasing clinically improving Cardiology eval noted renal function stable Afib -- rate is controlled, on ASA DVT-- on eliquis now monitor for any signs of bleeding renal follow up noted monitor CBC Problem List - Problems (1) Systolic CHF, acute on chronic Code(s): I50.23 - ACUTE ON CHRONIC SYSTOLIC (CONGESTIVE) HEART FAILURE (2) Deep vein thrombosis (DVT) of left lower extremity Code(s): I82.402 - ACUTE EMBOLISM AND THOMBOS UNSP DEEP VEINS OF L LOW EXTREM Qualifiers: Chronicity: acute (3) Atrial fibrillation Code(s): I48.91 - UNSPECIFIED ATRIAL FIBRILLATION Qualifiers: Atrial fibrillation type: persistent Qualified Code(s): I48.1 - Persistent atrial fibrillation (4) CAD (coronary artery disease) Code(s): I25.10 - ATHSCL HEART DISEASE OF [place] CORONARY ARTERY W/O ANG PCTRS Qualifiers: Coronary Disease-Associated Artery/Lesion type: bypass graft [place] vs. transplanted heart: [place] heart Associated angina: angina presence unspecified Qualified Code(s): I25.810 - Atherosclerosis of coronary artery bypass graft(s) without angina pectoris
[2019-05-07] MEDS: levETIRAcetam 250 MG TABLET (FP) PO SCH ×2 (11:31→23:18)
[2019-05-07] MEDS: CARVEDILOL 3.125 MG TABLET (FP) PO SCH ×2 (11:31→23:18)
[2019-05-07] MEDS: ESCITALOPRAM OXALATE 10 MG TABLET (FP) PO SCH (11:31)
[2019-05-07] MEDS: DOCUSATE SODIUM 100 MG CAPSULE (FP) PO SCH ×2 (11:32→23:18)
[2019-05-07] MEDS: APIXABAN 5 MG TABLET PO SCH ×2 (11:32→23:17)
[2019-05-07] MEDS: ASPIRIN 81 MG CHEWABLE TABLETS PO SCH (11:32)
[2019-05-07] MEDS: SPIRONOLACTONE 25 MG TABLET (FP) PO SCH ×2 (11:32→23:17)
--- NOTE | 2019-05-07 14:57 | PN ---
Progress Note (short form) - Note Progress Note: 78 year old male known case of CAD/s/p CABG, severe LV systolic dysfunction, h/ o of atrial fib, Hypertension, HLD, typeII DM, hypothyroidism. DVT. Admitted with progressive SOB,cough accompanied with clear expectoration and increasing pedal edema. since admission progressive improvement. Was not taking meds, as ordered. Found to have DVT in the proximal left femoral and left greater saphenous vein. Active Medications Acetaminophen (Tylenol -) 650 mg PO Q6H PRN PRN Reason: PAIN LEVEL 1-5 Last Admin: 05/08/19 09:10 Dose: 650 mg Alprazolam (Xanax -) 1 mg PO HS [facility] Last Admin: 05/08/19 21:59 Dose: 1 mg Apixaban (Eliquis -) 5 mg PO BID [facility] Last Admin: 05/08/19 21:58 Dose: 5 mg Aspirin (Asa -) 81 mg PO DAILY [facility] Last Admin: 05/08/19 09:10 Dose: 81 mg Atorvastatin Calcium (Lipitor -) 80 mg PO [facility] Last Admin: 05/08/19 21:59 Dose: 80 mg Carvedilol (Coreg -) 3.125 mg PO BID [facility] Last Admin: 05/08/19 21:57 Dose: 3.125 mg Dicloxacillin Sodium (Dynapen -) 500 mg PO TID [facility] Last Admin: 05/08/19 21:57 Dose: 500 mg Docusate Sodium (Colace -) 100 mg PO BID [facility] Last Admin: 05/08/19 21:57 Dose: 100 mg Enalapril Maleate (Vasotec -) 2.5 mg PO DAILY [facility] Last Admin: 05/08/19 09:09 Dose: 2.5 mg Escitalopram Oxalate (Lexapro -) 10 mg PO DAILY [facility] Last Admin: 05/08/19 09:10 Dose: 10 mg Furosemide (Lasix Injection -) 40 mg IVPUSH BID@0600,1400 [facility] Last Admin: 05/08/19 14:58 Dose: 40 mg Insulin Aspart (Novolog Vial Sliding Scale -) 1 vial SQ [facility]; Protocol Last Admin: 05/08/19 22:02 Dose: Not Given Levetiracetam (Keppra -) 750 mg PO BID [facility] Last Admin: 05/08/19 21:59 Dose: 750 mg Levothyroxine Sodium 100 mcg/ (Levothyroxine Sodium 75 mcg) 175 mcg PO DAILY@ 0700 [facility] Last Admin: 05/08/19 06:32 Dose: 175 mcg Spironolactone (Aldactone -) 25 mg PO BID [facility] Last Admin: 05/08/19 21:56 Dose: 25 mg Tamsulosin HCl (Flomax -) 0.8 mg PO HS [facility] Last Admin: 05/08/19 21:58 Dose: 0.8 mg O 78 year old male in no distress, no pallor or cyanosis. VITAL SIGNS: Weight: 87.906 Kg. BP: 100/5ommHg. PULSE:82/heath, irregular.RESP: 18 /min. TEMP: 98.8 degree F. O2 sat: 97% stasis changes NECK: supple ,no JVD, carotids 2+. HEART: No heaves or thrills, S1& S2 are normal.No murmur or gallops heard. LUNGS: Fine creps. at the right base. decreased breath sounds at both bases. EXTREMIETES: Bilateral 3+ pedal edema. Bilateral stasis changes and scarring.Rt. arm/hand is contracted and atrophic. CBC, BMP. WBC: 4,500. Hb 12.1 g/dl. Platelets: 147,000. BMP is not available. EKG: Not available. IMPRESSION: 1.CHF NYHA class III. 2.CAD, s/p CABG. 3.Severe LV systolic dysfunction. 4.H/o type II DM. 5.Left lower extremity DVT. 6.Hypothyoidism. 7.Hypertension. 8.Hyperlipidemia. RECOMMENDATIONS: 1.Continue current cardiac medications. 2 F/u BMP. 3.EKG. 4.[id number]. 5.F/u Xray chest.
[2019-05-07] MEDS: ALPRAZolam 0.25 MG TABLET PO SCH (23:17)
[2019-05-07] MEDS: TAMSULOSIN HCL 0.4 MG CAP PO SCH (23:18)
[2019-05-07] MEDS: ATORVASTATIN CA 80 MG TABLET (FP) PO SCH (23:18)
[2019-05-08 06:09] LABS: HEMOGLOBIN 12.1 GM/dL (11.7-16.9); MCH 31.5 pg (25.7-33.7); MCHC 33.7 g/dl (32.0-35.9); MEAN CELL VOLUME 93.5 fl (80-96); MEAN PLT VOLUME 8.9 fl (7.5-11.1); PLATELET COUNT 135 K/MM3 (134-434); RBC 3.85 M/mm3 (4.00-5.60); RDW 16.1 % (11.9-15.9); WHITE BLOOD COUNT 4.4 K/mm3 (4.0-10.0)
[2019-05-08] MEDS: INSULIN SLIDING SCALE (NOVOLOG) 1 VIAL SQ SCH ×4 (06:30→22:02)
[2019-05-08 06:32] LABS: ALBUMIN 2.5 g/dl (3.4-5.0); BILIRUBIN,TOTAL 0.7 mg/dL (0.2-1); BLOOD UREA NITROGEN 17.7 mg/dL (7-18); CALCIUM 7.3 mg/dL (8.5-10.1); CREATININE 0.9 mg/dL (0.55-1.3); POTASSIUM 3.4 mmol/L (3.5-5.1); TOT PROT 5.7 g/dl (6.4-8.2)
[2019-05-08] MEDS: LEVOTHYROXINE 100 MCG, LEVOTHYROXINE 75 MCG PO SCH (06:32)
[2019-05-08] MEDS: DICLOXACILLIN SODIUM 250 MG CAPSULE PO SCH ×3 (06:32→21:57)
[2019-05-08] MEDS: FUROSEMIDE 40 MG/4 ML INJECTABLE VIAL IVPUSH SCH ×2 (06:44→14:58)
[2019-05-08] MEDS ORDERED: PT OWN MED DRAWER 7, Y5N ONE (08:33)
[2019-05-08] MEDS: ENALAPRIL MALEATE 2.5 MG TABLET (FP) PO SCH (09:09)
[2019-05-08] MEDS: CARVEDILOL 3.125 MG TABLET (FP) PO SCH ×2 (09:10→21:57)
[2019-05-08] MEDS: DOCUSATE SODIUM 100 MG CAPSULE (FP) PO SCH ×2 (09:10→21:57)
[2019-05-08] MEDS: levETIRAcetam 250 MG TABLET (FP) PO SCH ×2 (09:10→21:59)
[2019-05-08] MEDS: ASPIRIN 81 MG CHEWABLE TABLETS PO SCH (09:10)
[2019-05-08] MEDS: ACETAMINOPHEN 325 MG TABLET (FP) PO PRN (09:10)
[2019-05-08] MEDS: APIXABAN 5 MG TABLET PO SCH ×2 (09:10→21:58)
[2019-05-08] MEDS: SPIRONOLACTONE 25 MG TABLET (FP) PO SCH ×2 (09:10→21:56)
[2019-05-08] MEDS: ESCITALOPRAM OXALATE 10 MG TABLET (FP) PO SCH (09:10)
--- NOTE | 2019-05-08 12:35 | PN ---
Progress Note (short form) - Note Progress Note: comfortable lying flat in bed no sob no chest pain Vital Signs - 24 hr 05/07/19 05/07/19 05/07/19 14:15 17:00 19:42 Temperature 97.8 F 98.6 F Pulse Rate 81 73 Respiratory 18 20 Rate Blood Pressure 111/63 106/50 L O2 Sat by Pulse 100 Oximetry (%) 05/07/19 05/08/19 05/08/19 22:00 00:00 07:00 Temperature 98.1 F 97.4 F L Pulse Rate 72 75 68 Respiratory 18 20 20 Rate Blood Pressure 94/55 L 106/55 L 103/61 O2 Sat by Pulse Oximetry (%) 05/08/19 05/08/19 08:19 11:34 Temperature 97.8 F Pulse Rate 71 69 Respiratory 18 18 Rate Blood Pressure 102/55 L 105/58 L O2 Sat by Pulse 100 Oximetry (%) Current Medications Generic Name Dose Route Start Last Admin Trade Name Freq PRN Reason Stop Dose Admin Acetaminophen 650 mg 05/06/19 23:03 05/08/19 09:10 Tylenol - PO 650 mg Q6H PRN Administration PAIN LEVEL 1-5 Alprazolam 1 mg 05/05/19 22:00 05/07/19 23:17 Xanax - PO 1 mg HS EUGENE Administration Apixaban 5 mg 05/05/19 12:00 05/08/19 09:10 Eliquis - PO 5 mg BID EU[facility]E Administration Aspirin 81 mg 05/05/19 10:00 05/08/19 09:10 Asa - PO 81 mg DAILY EU[facility]E Administration Atorvastatin Calcium 80 mg 05/05/19 22:00 05/07/19 23:18 Lipitor - PO 80 mg HS EUGENE Administration Carvedilol 3.125 mg 05/05/19 10:00 05/08/19 09:10 Coreg - PO 3.125 mg BID EU[facility]E Administration Dicloxacillin Sodium 500 mg 05/05/19 21:45 05/08/19 06:32 Dynapen - PO 500 mg TID EUGENE Administration Docusate Sodium 100 mg 05/05/19 10:00 05/08/19 09:10 Colace - PO 100 mg BID EU[facility]E Administration Enalapril Maleate 2.5 mg 05/08/19 10:00 05/08/19 09:09 Vasotec - PO 2.5 mg DAILY [facility]E Administration Escitalopram Oxalate 10 mg 05/05/19 10:00 05/08/19 09:10 Lexapro - PO 10 mg DAILY [facility] Administration Furosemide 40 mg 05/05/19 14:00 05/08/19 06:44 Lasix Injection - IVPUSH 40 mg BID@0600,1400 [facility] Administration Insulin Aspart 1 vial 05/05/19 11:00 05/08/19 11:35 Novolog Vial Sliding Scale - SQ Not Given ACHS [facility] Protocol Levetiracetam 750 mg 05/05/19 10:00 05/08/19 09:10 Keppra - PO 750 mg BID EU[facility]E Administration Levothyroxine Sodium 100 mcg/ 175 mcg 05/07/19 07:00 05/08/19 06:32 Levothyroxine Sodium 75 mcg PO 175 mcg DAILY@0700 [facility] Administration Spironolactone 25 mg 05/05/19 10:00 05/08/19 09:10 Aldactone - PO 25 mg BID EU[facility]E Administration Tamsulosin HCl 0.8 mg 05/05/19 22:00 05/07/19 23:18 Flomax - PO 0.8 mg HS EUGENE Administration Laboratory Results - last 24 hr 05/07/19 05/07/19 05/08/19 17:01 21:33 05:08 WBC 4.4 RBC 3.85 L Hgb 12.1 Hct 36.0 MCV 93.5 MCH 31.5 MCHC 33.7 RDW 16.1 H Plt Count 135 MPV 8.9 Sodium Potassium Chloride Carbon Dioxide Anion Gap BUN Creatinine Est GFR (CKD-EPI)AfAm Est GFR (CKD-EPI)NonAf POC Glucometer 125 97 Random Glucose Calcium Total Bilirubin AST ALT Alkaline Phosphatase Total Protein Albumin 05/08/19 05/08/19 05/08/19 05:08 06:28 11:30 WBC RBC Hgb Hct MCV MCH MCHC RDW Plt Count MPV Sodium 140 Potassium 3.4 L Chloride 103 Carbon Dioxide 28 Anion Gap 10 BUN 17.7 Creatinine 0.9 Est GFR (CKD-EPI)AfAm 94.48 Est GFR (CKD-EPI)NonAf 81.52 POC Glucometer 70 96 Random Glucose 80 Calcium 7.3 L Total Bilirubin 0.7 AST 23 ALT 18 Alkaline Phosphatase 132 H Total Protein 5.7 L Albumin 2.5 L S1 s2 Irregular Lungs decreased , no crackles Abd- soft, NT Edema+ PLAN CHF -- on lasix and aldactone weight is decreasing clinically improving Cardiology eval noted renal function stable Afib -- rate is controlled, on ASA DVT-- on eliquis now monitor for any signs of bleeding renal follow up noted monitor CBC PT eval ? str vs home with VNS/FILTER PLANT SUPERVISOR- spoke with field nurse case manager Problem List - Problems (1) Systolic CHF, acute on chronic Code(s): I50.23 - ACUTE ON CHRONIC SYSTOLIC (CONGESTIVE) HEART FAILURE (2) Deep vein thrombosis (DVT) of left lower extremity Code(s): I82.402 - ACUTE EMBOLISM AND THOMBOS UNSP DEEP VEINS OF L LOW EXTREM Qualifiers: Chronicity: acute (3) Atrial fibrillation Code(s): I48.91 - UNSPECIFIED ATRIAL FIBRILLATION Qualifiers: Atrial fibrillation type: persistent Qualified Code(s): I48.1 - Persistent atrial fibrillation (4) CAD (coronary artery disease) Code(s): I25.10 - ATHSCL HEART DISEASE OF [place] CORONARY ARTERY W/O ANG PCTRS Qualifiers: Coronary Disease-Associated Artery/Lesion type: bypass graft [place] vs. transplanted heart: [place] heart Associated angina: angina presence unspecified Qualified Code(s): I25.810 - Atherosclerosis of coronary artery bypass graft(s) without angina pectoris
[2019-05-08] MEDS: TAMSULOSIN HCL 0.4 MG CAP PO SCH (21:58)
[2019-05-08] MEDS: ALPRAZolam 0.25 MG TABLET PO SCH (21:59)
[2019-05-08] MEDS: ATORVASTATIN CA 80 MG TABLET (FP) PO SCH (21:59)
--- NOTE | 2019-05-08 22:59 | PN ---
Progress Note (short form) - Note Progress Note: 78 year old male known case of CAD/s/p CABG, severe LV systolic dysfunction, h/ o of atrial fib,Hypertension,HLD, typeII DM, hypothyroidism. DVT. S/p meningioma. Admitted with progressive SOB,cough accompanied with clear expectoration and increasing pedal edema. since admission progressive improvement. Was not taking meds, as ordered. Found to have DVT in the proximal left femoral and left greater saphenous vein. No SOB, chest pain or discomfort, no palpitations, lightheadedness or dizziness. Active Medications Generic Name Dose Route Start Last Admin Trade Name Freq PRN Reason Stop Dose Admin Acetaminophen 650 mg 05/06/19 23:03 05/08/19 09:10 Tylenol - PO 650 mg Q6H PRN Administration PAIN LEVEL 1-5 Alprazolam 1 mg 05/05/19 22:00 05/08/19 21:59 Xanax - PO 1 mg HS [facility]GENE Administration Apixaban 5 mg 05/05/19 12:00 05/08/19 21:58 Eliquis - PO 5 mg BID [facility]E Administration Aspirin 81 mg 05/05/19 10:00 05/08/19 09:10 Asa - PO 81 mg DAILY [facility] Administration Atorvastatin Calcium 80 mg 05/05/19 22:00 05/08/19 21:59 Lipitor - PO 80 mg HS [facility]E Administration Carvedilol 3.125 mg 05/05/19 10:00 05/08/19 21:57 Coreg - PO 3.125 mg BID [facility]E Administration Dicloxacillin Sodium 500 mg 05/05/19 21:45 05/08/19 21:57 Dynapen - PO 500 mg TID EU[facility]E Administration Docusate Sodium 100 mg 05/05/19 10:00 05/08/19 21:57 Colace - PO 100 mg BID [facility]E Administration Enalapril Maleate 2.5 mg 05/08/19 10:00 05/08/19 09:09 Vasotec - PO 2.5 mg DAILY [facility] Administration Escitalopram Oxalate 10 mg 05/05/19 10:00 05/08/19 09:10 Lexapro - PO 10 mg DAILY [facility]E Administration Furosemide 40 mg 05/05/19 14:00 05/08/19 14:58 Lasix Injection - IVPUSH 40 mg BID@0600,1400 [facility] Administration Insulin Aspart 1 vial 05/05/19 11:00 05/08/19 22:02 Novolog Vial Sliding Scale - SQ Not Given ACHS [facility] Protocol Levetiracetam 750 mg 05/05/19 10:00 05/08/19 21:59 Keppra - PO 750 mg BID EU[facility]E Administration Levothyroxine Sodium 100 mcg/ 175 mcg 05/07/19 07:00 05/08/19 06:32 Levothyroxine Sodium 75 mcg PO 175 mcg DAILY@0700 [facility]E Administration Spironolactone 25 mg 05/05/19 10:00 05/08/19 21:56 Aldactone - PO 25 mg BID EU[facility]E Administration Tamsulosin HCl 0.8 mg 05/05/19 22:00 05/08/19 21:58 Flomax - PO 0.8 mg HS EUGENE Administration O 78 year old male in no distress, no pallor or cyanosis, clubbing or jaundice. VITAL SIGNS: Weight: 87.906 Kg. BP: 100/5ommHg. PULSE:82/heath, irregular.RESP: 18 /min. TEMP: 98.8 degree F. O2 sat: 97% stasis changes NECK: supple ,no JVD, carotids 2+. HEART: No heaves or thrills, S1 & S2 are normal. No murmur or gallops heard. LUNGS: Fine creps. at the right base. decreased breath sounds at both bases. EXTREMIETES: Bilateral 2+ pedal edema. Bilateral stasis changes scars both lower extremities. Rt. arm/hand is contracted and atrophic. CBC, BMP 05/08/19 05:08 05/08/19 05:08 IMPRESSION: 1.CHF NYHA class III. 2.CAD, s/p CABG. 3.Severe LV systolic dysfunction. 4.Hypokalemia. 5.Left lower extremity DVT. 6.Hypothyoidism. 7.Hypertension. 8.Hyperlipidemia. 9.Type II DM. RECOMMENDATIONS: 1.Correction of K+. 2 F/u BMP. 3.EKG. 4.[id number]. 5.F/u Xray chest.
[2019-05-09] MEDS: ACETAMINOPHEN 325 MG TABLET (FP) PO PRN ×2 (00:12→18:46)
[2019-05-09] MEDS ORDERED: LEVOTHYROXINE NA 75 MCG TABLET (FP) ONE (06:16)
[2019-05-09] MEDS ORDERED: LEVOTHYROXINE NA 100 MCG TABLET (FP) ONE (06:17)
[2019-05-09] MEDS: FUROSEMIDE 40 MG/4 ML INJECTABLE VIAL IVPUSH SCH ×2 (06:27→14:22)
[2019-05-09] MEDS: DICLOXACILLIN SODIUM 250 MG CAPSULE PO SCH ×3 (06:27→23:27)
[2019-05-09] MEDS: INSULIN SLIDING SCALE (NOVOLOG) 1 VIAL SQ SCH ×4 (06:28→22:47)
[2019-05-09] MEDS: LEVOTHYROXINE 100 MCG, LEVOTHYROXINE 75 MCG PO SCH (06:29)
[2019-05-09] MEDS: ENALAPRIL MALEATE 2.5 MG TABLET (FP) PO SCH (09:10)
[2019-05-09] MEDS: APIXABAN 5 MG TABLET PO SCH ×2 (09:10→22:46)
[2019-05-09] MEDS: ASPIRIN 81 MG CHEWABLE TABLETS PO SCH (09:10)
[2019-05-09] MEDS: CARVEDILOL 3.125 MG TABLET (FP) PO SCH ×2 (09:10→22:46)
[2019-05-09] MEDS: ESCITALOPRAM OXALATE 10 MG TABLET (FP) PO SCH (09:10)
[2019-05-09] MEDS: DOCUSATE SODIUM 100 MG CAPSULE (FP) PO SCH ×2 (09:10→22:46)
[2019-05-09] MEDS: SPIRONOLACTONE 25 MG TABLET (FP) PO SCH ×2 (09:10→22:45)
[2019-05-09] MEDS: levETIRAcetam 250 MG TABLET (FP) PO SCH ×2 (09:10→22:46)
--- NOTE | 2019-05-09 11:26 | PN ---
Progress Note (short form) - Note Progress Note: comfortable lying flat in bed no sob no chest pain vitals noted S1 s2 Irregular Lungs decreased , no crackles Abd- soft, NT Edema+ PLAN CHF -- on lasix and aldactone weight is decreasing clinically improving Cardiology eval noted renal function stable Afib -- rate is controlled, on ASA DVT-- on eliquis now monitor for any signs of bleeding renal follow up noted monitor CBC PT eval ? str vs home with VNS/AUTO SERVICE MECHANIC- spoke with case loader operator Problem List - Problems (1) Systolic CHF, acute on chronic Code(s): I50.23 - ACUTE ON CHRONIC SYSTOLIC (CONGESTIVE) HEART FAILURE (2) Deep vein thrombosis (DVT) of left lower extremity Code(s): I82.402 - ACUTE EMBOLISM AND THOMBOS UNSP DEEP VEINS OF L LOW EXTREM Qualifiers: Chronicity: acute (3) Atrial fibrillation Code(s): I48.91 - UNSPECIFIED ATRIAL FIBRILLATION Qualifiers: Atrial fibrillation type: persistent Qualified Code(s): I48.1 - Persistent atrial fibrillation (4) CAD (coronary artery disease) Code(s): I25.10 - ATHSCL HEART DISEASE OF [place] CORONARY ARTERY W/O ANG PCTRS Qualifiers: Coronary Disease-Associated Artery/Lesion type: bypass graft [place] vs. transplanted heart: [place] heart Associated angina: angina presence unspecified Qualified Code(s): I25.810 - Atherosclerosis of coronary artery bypass graft(s) without angina pectoris
[2019-05-09] MEDS ORDERED: PT OWN MED DRAWER 7, Y5N ONE (13:57)
[2019-05-09] MEDS: ALPRAZolam 0.25 MG TABLET PO SCH (22:46)
[2019-05-09] MEDS: TAMSULOSIN HCL 0.4 MG CAP PO SCH (22:46)
[2019-05-09] MEDS: ATORVASTATIN CA 80 MG TABLET (FP) PO SCH (22:46)
[2019-05-09] MEDS ORDERED: TRAMADOL HCL 50 MG PO PRN (22:50)
[2019-05-09] MEDS ORDERED: oxyCODONE HCL 5 MG TABLET PO PRN (23:07)
[2019-05-09] MEDS: traMADol HCL 50 MG TABLET PO PRN (23:15)
[2019-05-10] MEDS ORDERED: LEVOTHYROXINE NA 100 MCG TABLET (FP) ONE (06:05)
[2019-05-10] MEDS ORDERED: LEVOTHYROXINE NA 75 MCG TABLET (FP) ONE (06:05)
[2019-05-10] MEDS: FUROSEMIDE 40 MG/4 ML INJECTABLE VIAL IVPUSH SCH ×2 (06:56→13:49)
[2019-05-10] MEDS: DICLOXACILLIN SODIUM 250 MG CAPSULE PO SCH ×3 (06:57→21:32)
[2019-05-10] MEDS: LEVOTHYROXINE 100 MCG, LEVOTHYROXINE 75 MCG PO SCH (06:57)
[2019-05-10] MEDS: INSULIN SLIDING SCALE (NOVOLOG) 1 VIAL SQ SCH ×4 (06:57→21:38)
[2019-05-10] MEDS ORDERED: PT OWN MED DRAWER 7, Y5N ONE (08:02)
--- NOTE | 2019-05-10 11:21 | PN ---
Progress Note (short form) - Note Progress Note: comfortable lying flat in bed no sob no chest pain Vital Signs - 24 hr 05/09/19 05/09/19 05/09/19 14:10 18:00 21:00 Temperature 97.7 F 98.1 F Pulse Rate 77 69 Respiratory 20 20 Rate Blood Pressure 91/57 L 90/51 L O2 Sat by Pulse 97 Oximetry (%) 05/09/19 05/10/19 05/10/19 22:00 02:00 06:00 Temperature 98.1 F 97.8 F 97.8 F Pulse Rate 79 71 65 Respiratory 19 18 18 Rate Blood Pressure 96/61 94/52 L 96/50 L O2 Sat by Pulse Oximetry (%) 05/10/19 05/10/19 08:35 08:37 Temperature 97.8 F Pulse Rate 70 Respiratory 18 18 Rate Blood Pressure 97/49 L O2 Sat by Pulse 97 Oximetry (%) Current Medications Generic Name Dose Route Start Last Admin Trade Name Freq PRN Reason Stop Dose Admin Acetaminophen 650 mg 05/06/19 23:03 05/09/19 18:46 Tylenol - PO 650 mg Q6H PRN Administration PAIN LEVEL 1-5 Alprazolam 1 mg 05/05/19 22:00 05/09/19 22:46 Xanax - PO 1 mg HS EUGENE Administration Apixaban 5 mg 05/05/19 12:00 05/09/19 22:46 Eliquis - PO 5 mg BID EUGENE Administration Aspirin 81 mg 05/05/19 10:00 05/09/19 09:10 Asa - PO 81 mg DAILY EUGENE Administration Atorvastatin Calcium 80 mg 05/05/19 22:00 05/09/19 22:46 Lipitor - PO 80 mg HS EUGENE Administration Carvedilol 3.125 mg 05/05/19 10:00 05/09/19 22:46 Coreg - PO 3.125 mg BID EUGENE Administration Dicloxacillin Sodium 500 mg 05/05/19 21:45 05/10/19 06:57 Dynapen - PO 500 mg TID EUGENE Administration Docusate Sodium 300 mg 05/10/19 22:00 Colace - PO HS EUGENE Enalapril Maleate 2.5 mg 05/08/19 10:00 05/09/19 09:10 Vasotec - PO 2.5 mg DAILY EUGENE Administration Escitalopram Oxalate 10 mg 05/05/19 10:00 05/09/19 09:10 Lexapro - PO 10 mg DAILY EUGENE Administration Furosemide 40 mg 05/05/19 14:00 05/10/19 06:56 Lasix Injection - IVPUSH 40 mg BID@0600,1400 [facility]E Administration Insulin Aspart 1 vial 05/05/19 11:00 05/10/19 06:57 Novolog Vial Sliding Scale - SQ Not Given ACHS [facility] Protocol Levetiracetam 750 mg 05/05/19 10:00 05/09/19 22:46 Keppra - PO 750 mg BID EUGENE Administration Levothyroxine Sodium 100 mcg/ 175 mcg 05/07/19 07:00 05/10/19 06:57 Levothyroxine Sodium 75 mcg PO 175 mcg DAILY@0700 EUGENE Administration Spironolactone 25 mg 05/05/19 10:00 05/09/19 22:45 Aldactone - PO 25 mg BID EUGENE Administration Tamsulosin HCl 0.8 mg 05/05/19 22:00 05/09/19 22:46 Flomax - PO 0.8 mg HS EUGENE Administration Tramadol HCl 50 mg 05/09/19 23:06 05/09/19 23:15 Ultram - PO 50 mg Q6H PRN Administration PAIN LEVEL 6-10 Laboratory Results - last 24 hr 05/09/19 05/09/19 05/10/19 16:39 22:44 06:56 POC Glucometer 121 107 84 S1 s2 Irregular Lungs decreased , no crackles Abd- soft, NT Edema+ PLAN CHF -- on lasix and aldactone-- will change to PO lasix tomorrow onwards weight is decreasing clinically improving Spoke with Cardiology-- MUGA scan in AM to accurately evaluate EF- pt is candidate for AICD renal function stable Afib -- rate is controlled, on ASA DVT-- on eliquis now monitor for any signs of bleeding monitor CBC PT eval ? 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 with cyanide case hardener Problem List - Problems (1) Systolic CHF, acute on chronic Code(s): I50.23 - ACUTE ON CHRONIC SYSTOLIC (CONGESTIVE) HEART FAILURE (2) Deep vein thrombosis (DVT) of left lower extremity Code(s): I82.402 - ACUTE EMBOLISM AND THOMBOS UNSP DEEP VEINS OF L LOW EXTREM Qualifiers: Chronicity: acute (3) Atrial fibrillation Code(s): I48.91 - UNSPECIFIED ATRIAL FIBRILLATION Qualifiers: Atrial fibrillation type: persistent Qualified Code(s): I48.1 - Persistent atrial fibrillation (4) CAD (coronary artery disease) Code(s): I25.10 - ATHSCL HEART DISEASE OF [place] CORONARY ARTERY W/O ANG PCTRS Qualifiers: Coronary Disease-Associated Artery/Lesion type: bypass graft [place] vs. transplanted heart: [place] heart Associated angina: angina presence unspecified Qualified Code(s): I25.810 - Atherosclerosis of coronary artery bypass graft(s) without angina pectoris
[2019-05-10] MEDS: SPIRONOLACTONE 25 MG TABLET (FP) PO SCH ×2 (11:33→21:33)
[2019-05-10] MEDS: ASPIRIN 81 MG CHEWABLE TABLETS PO SCH (11:33)
[2019-05-10] MEDS: APIXABAN 5 MG TABLET PO SCH ×2 (11:34→21:33)
[2019-05-10] MEDS: ESCITALOPRAM OXALATE 10 MG TABLET (FP) PO SCH (11:34)
[2019-05-10] MEDS: levETIRAcetam 250 MG TABLET (FP) PO SCH ×2 (11:34→21:34)
[2019-05-10] MEDS: CARVEDILOL 3.125 MG TABLET (FP) PO SCH ×2 (11:34→21:33)
[2019-05-10] MEDS: ENALAPRIL MALEATE 2.5 MG TABLET (FP) PO SCH (11:34)
--- NOTE | 2019-05-10 11:39 | PN ---
Progress Note (short form) - Note Progress Note: 78 year old male known case of CAD/s/p CABG, severe LV systolic dysfunction, h/ o of atrial fib, Hypertension,HLD, typeII DM, hypothyroidism. DVT. S/p meningioma. No SOB, chest pain or discomfort, no palpitations, lightheadedness or dizziness. Active Medications Generic Name Dose Route Start Last Admin Trade Name Freq PRN Reason Stop Dose Admin Acetaminophen 650 mg 05/06/19 23:03 05/09/19 18:46 Tylenol - PO 650 mg Q6H PRN Administration PAIN LEVEL 1-5 Alprazolam 1 mg 05/05/19 22:00 05/09/19 22:46 Xanax - PO 1 mg HS EUGENE Administration Apixaban 5 mg 05/05/19 12:00 05/10/19 11:34 Eliquis - PO 5 mg BID EUGENE Administration Aspirin 81 mg 05/05/19 10:00 05/10/19 11:33 Asa - PO 81 mg DAILY EUGENE Administration Atorvastatin Calcium 80 mg 05/05/19 22:00 05/09/19 22:46 Lipitor - PO 80 mg HS EUGENE Administration Carvedilol 3.125 mg 05/05/19 10:00 05/10/19 11:34 Coreg - PO 3.125 mg BID EUGENE Administration Dicloxacillin Sodium 500 mg 05/05/19 21:45 05/10/19 06:57 Dynapen - PO 500 mg TID EUGENE Administration Docusate Sodium 300 mg 05/10/19 22:00 Colace - PO HS EUGENE Enalapril Maleate 2.5 mg 05/08/19 10:00 05/10/19 11:34 Vasotec - PO 2.5 mg DAILY [facility]E Administration Escitalopram Oxalate 10 mg 05/05/19 10:00 05/10/19 11:34 Lexapro - PO 10 mg DAILY [facility]E Administration Furosemide 40 mg 05/05/19 14:00 05/10/19 06:56 Lasix Injection - IVPUSH 40 mg BID@0600,1400 [facility] Administration Insulin Aspart 1 vial 05/05/19 11:00 05/10/19 11:34 Novolog Vial Sliding Scale - SQ Not Given ACHS [facility] Protocol Levetiracetam 750 mg 05/05/19 10:00 05/10/19 11:34 Keppra - PO 750 mg BID [facility] Administration Levothyroxine Sodium 100 mcg/ 175 mcg 05/07/19 07:00 05/10/19 06:57 Levothyroxine Sodium 75 mcg PO 175 mcg DAILY@0700 [facility] Administration Spironolactone 25 mg 05/05/19 10:00 05/10/19 11:33 Aldactone - PO 25 mg BID [facility] Administration Tamsulosin HCl 0.8 mg 05/05/19 22:00 05/09/19 22:46 Flomax - PO 0.8 mg HS EUGENE Administration Tramadol HCl 50 mg 05/09/19 23:06 05/09/19 23:15 Ultram - PO 50 mg Q6H PRN Administration PAIN LEVEL 6-10 Last Vital Signs Temp Pulse Resp BP Pulse Ox 97.8 F 68 18 94/45 L 97 05/10/19 08:35 05/10/19 11:00 05/10/19 08:37 05/10/19 11:00 05/10/19 08:37 NECK: supple ,no JVD, carotids 2+. HEART: No heaves or thrills, S1& S2 are normal.No murmur or gallops heard. LUNGS: Fine creps. at the right base. decreased breath sounds at both bases. EXTREMIETES: Bilateral 2+ pedal edema. Bilateral stasis changes and scarring.Rt. arm/hand is contracted and atrophic. CBC, BMP 05/08/19 05:08 05/08/19 05:08 IMPRESSION: 1.CHF NYHA class resolved. 2.CAD, s/p CABG. 3.Severe LV systolic dysfunction. 4.Hypokalemia. 5.Left lower extremity DVT. 6.Hypothyoidism,on replacement therapy. 7.Hypertension. 8.Hyperlipidemia. 9. Type II DM. RECOMMENDATIONS: 1.Resting MUGA . 2 F/u BMP. 3.[id number]. 4.Increase ambulation with assistance.
[2019-05-10] MEDS: ATORVASTATIN CA 80 MG TABLET (FP) PO SCH (21:33)
[2019-05-10] MEDS: ALPRAZolam 0.25 MG TABLET PO SCH (21:34)
[2019-05-10] MEDS: DOCUSATE SODIUM 100 MG CAPSULE (FP) PO SCH (21:35)
[2019-05-10] MEDS: TAMSULOSIN HCL 0.4 MG CAP PO SCH (21:35)
[2019-05-11] MEDS ORDERED: LEVOTHYROXINE NA 100 MCG TABLET (FP) ONE (05:45)
[2019-05-11] MEDS ORDERED: LEVOTHYROXINE NA 75 MCG TABLET (FP) ONE (05:45)
[2019-05-11] MEDS: INSULIN SLIDING SCALE (NOVOLOG) 1 VIAL SQ SCH ×3 (06:08→22:02)
[2019-05-11] MEDS: LEVOTHYROXINE 100 MCG, LEVOTHYROXINE 75 MCG PO SCH (06:10)
[2019-05-11] MEDS: DICLOXACILLIN SODIUM 250 MG CAPSULE PO SCH ×3 (06:10→21:56)
[2019-05-11 07:27] LABS: HEMATOCRIT 37.9 % (35.4-49); HEMOGLOBIN 12.7 GM/dL (11.7-16.9); MCH 31.6 pg (25.7-33.7); MCHC 33.4 g/dl (32.0-35.9); MEAN CELL VOLUME 94.5 fl (80-96); PLATELET COUNT 132 K/MM3 (134-434); RBC 4.01 M/mm3 (4.00-5.60); RDW 16.1 % (11.9-15.9); WHITE BLOOD COUNT 5.4 K/mm3 (4.0-10.0)
[2019-05-11 07:37] LABS: BILIRUBIN,TOTAL 0.6 mg/dL (0.2-1); BLOOD UREA NITROGEN 23.4 mg/dL (7-18); CALCIUM 8.6 mg/dL (8.5-10.1); POTASSIUM 3.8 mmol/L (3.5-5.1); TOT PROT 5.8 g/dl (6.4-8.2)
[2019-05-11] MEDS: traMADol HCL 50 MG TABLET PO PRN (11:20)
[2019-05-11] MEDS: FUROSEMIDE 40 MG TABLET (FP) PO SCH (11:22)
[2019-05-11] MEDS: levETIRAcetam 250 MG TABLET (FP) PO SCH ×2 (11:22→21:57)
[2019-05-11] MEDS: SPIRONOLACTONE 25 MG TABLET (FP) PO SCH ×2 (11:23→21:54)
[2019-05-11] MEDS: APIXABAN 5 MG TABLET PO SCH ×2 (11:23→21:57)
[2019-05-11] MEDS: ASPIRIN 81 MG CHEWABLE TABLETS PO SCH (11:23)
[2019-05-11] MEDS: ESCITALOPRAM OXALATE 10 MG TABLET (FP) PO SCH (11:23)
[2019-05-11] MEDS: CARVEDILOL 3.125 MG TABLET (FP) PO SCH ×2 (11:23→21:55)
[2019-05-11] MEDS: ENALAPRIL MALEATE 2.5 MG TABLET (FP) PO SCH (11:23)
--- NOTE | 2019-05-11 13:04 | PN ---
Progress Note (short form) - Note Progress Note: pt seen/ examined chart reviewed awake/ comfortable denies cp. breathing stable Vital Signs Temp 97.9 F 05/11/19 11:00 Pulse 72 05/11/19 11:00 Resp 18 05/11/19 11:00 BP 114/62 05/11/19 11:00 Pulse Ox 99 05/11/19 09:00 Intake & Output 05/10/19 05/11/19 05/11/19 23:59 11:59 23:59 Intake Total 40 250 Output Total 1200 550 Balance -1160 -300 Weight 168 lb 3.2 oz Intake: IV 40 10 SALINE LOCK 40 10 Oral 240 Output: Urine 1200 550 Void 1200 550 Other: Voiding Method Urinal Urinal Bowel Movement No No Weight Measurement Method Patient Lift Scale Active Medications Acetaminophen (Tylenol -) 650 mg PO Q6H PRN PRN Reason: PAIN LEVEL 1-5 Last Admin: 05/09/19 18:46 Dose: 650 mg Alprazolam (Xanax -) 1 mg PO [facility] Last Admin: 05/10/19 21:34 Dose: 1 mg Apixaban (Eliquis -) 5 mg PO BID [facility] Last Admin: 05/11/19 11:23 Dose: 5 mg Aspirin (Asa -) 81 mg PO DAILY [facility] Last Admin: 05/11/19 11:23 Dose: 81 mg Atorvastatin Calcium (Lipitor -) 80 mg PO [facility] Last Admin: 05/10/19 21:33 Dose: 80 mg Carvedilol (Coreg -) 3.125 mg PO BID [facility] Last Admin: 05/11/19 11:23 Dose: 3.125 mg Dicloxacillin Sodium (Dynapen -) 500 mg PO TID [facility] Last Admin: 05/11/19 06:10 Dose: 500 mg Docusate Sodium (Colace -) 300 mg PO [facility] Last Admin: 05/10/19 21:35 Dose: 300 mg Enalapril Maleate (Vasotec -) 2.5 mg PO DAILY [facility] Last Admin: 05/11/19 11:23 Dose: 2.5 mg Escitalopram Oxalate (Lexapro -) 10 mg PO DAILY [facility] Last Admin: 05/11/19 11:23 Dose: 10 mg Furosemide (Lasix -) 40 mg PO DAILY [facility] Last Admin: 05/11/19 11:22 Dose: 40 mg Insulin Aspart (Novolog Vial Sliding Scale -) 1 vial SQ [facility]; Protocol Last Admin: 05/11/19 11:23 Dose: Not Given Levetiracetam (Keppra -) 750 mg PO BID [facility] Last Admin: 05/11/19 11:22 Dose: 750 mg Levothyroxine Sodium 100 mcg/ (Levothyroxine Sodium 75 mcg) 175 mcg PO DAILY@ 0700 [facility] Last Admin: 05/11/19 06:10 Dose: 175 mcg Spironolactone (Aldactone -) 25 mg PO BID [facility] Last Admin: 05/11/19 11:23 Dose: 25 mg Tamsulosin HCl (Flomax -) 0.8 mg PO HS [facility] Last Admin: 05/10/19 21:35 Dose: 0.8 mg Tramadol HCl (Ultram -) 50 mg PO Q6H PRN PRN Reason: PAIN LEVEL 6-10 Last Admin: 05/11/19 11:20 Dose: 50 mg CBC, BMP 05/11/19 05:28 05/11/19 05:28 Physical Exam S1 s2 Irregular Lungs decreased , no crackles Abd- soft, NT Edema+ rue paresis PLAN chf dvt-- left leg-- 05/22 htn h/o cva Continue present care meds reviewed MuGa scan today will follow Monitor on tele Problem List - Problems (1) CAD (coronary artery disease) Code(s): I25.10 - ATHSCL HEART DISEASE OF [place] CORONARY ARTERY W/O ANG PCTRS Qualifiers: Coronary Disease-Associated Artery/Lesion type: bypass graft [place] vs. transplanted heart: [place] heart Associated angina: angina presence unspecified Qualified Code(s): I25.810 - Atherosclerosis of coronary artery bypass graft(s) without angina pectoris (2) Deep vein thrombosis (DVT) of left lower extremity Code(s): I82.402 - ACUTE EMBOLISM AND [place]OMB[place] UNSP DEEP VEINS OF L LOW EXTREM Qualifiers: Chronicity: acute (3) Atrial fibrillation Code(s): I48.91 - UNSPECIFIED ATRIAL FIBRILLATION Qualifiers: Atrial fibrillation type: persistent Qualified Code(s): I48.1 - Persistent atrial fibrillation (4) Congestive heart disease Code(s): I50.9 - HEART FAILURE, UNSPECIFIED Qualifiers: Heart failure type: combined systolic and diastolic Heart failure chronicity: acute on chronic Qualified Code(s): I50.43 - Acute on chronic combined systolic (congestive) and diastolic (congestive) heart failure
--- NOTE | 2019-05-11 18:45 | PN ---
Progress Note (short form) - Note Progress Note: 78 year old male known case of CAD/s/p CABG, severe LV systolic dysfunction, h/ o of atrial fib,Hypertension,HLD, typeII DM, hypothyroidism. DVT. S/p meningioma. No SOB, chest pain or discomfort, no palpitations, lightheadedness or dizziness. Active Medications Acetaminophen (Tylenol -) 650 mg PO Q6H PRN PRN Reason: PAIN LEVEL 1-5 Last Admin: 05/09/19 18:46 Dose: 650 mg Alprazolam (Xanax -) 1 mg PO HS [facility] Last Admin: 05/10/19 21:34 Dose: 1 mg Apixaban (Eliquis -) 5 mg PO BID [facility] Last Admin: 05/11/19 11:23 Dose: 5 mg Aspirin (Asa -) 81 mg PO DAILY [facility] Last Admin: 05/11/19 11:23 Dose: 81 mg Atorvastatin Calcium (Lipitor -) 80 mg PO [facility] Last Admin: 05/10/19 21:33 Dose: 80 mg Carvedilol (Coreg -) 3.125 mg PO BID [facility] Last Admin: 05/11/19 11:23 Dose: 3.125 mg Dicloxacillin Sodium (Dynapen -) 500 mg PO TID [facility] Last Admin: 05/11/19 14:08 Dose: 500 mg Docusate Sodium (Colace -) 300 mg PO [facility] Last Admin: 05/10/19 21:35 Dose: 300 mg Enalapril Maleate (Vasotec -) 2.5 mg PO DAILY [facility] Last Admin: 05/11/19 11:23 Dose: 2.5 mg Escitalopram Oxalate (Lexapro -) 10 mg PO DAILY [facility] Last Admin: 05/11/19 11:23 Dose: 10 mg Furosemide (Lasix -) 40 mg PO DAILY [facility] Last Admin: 05/11/19 11:22 Dose: 40 mg Insulin Aspart (Novolog Vial Sliding Scale -) 1 vial SQ [facility]; Protocol Last Admin: 05/11/19 11:23 Dose: Not Given Levetiracetam (Keppra -) 750 mg PO BID [facility] Last Admin: 05/11/19 11:22 Dose: 750 mg Levothyroxine Sodium 100 mcg/ (Levothyroxine Sodium 75 mcg) 175 mcg PO DAILY@ 0700 [facility] Last Admin: 05/11/19 06:10 Dose: 175 mcg Spironolactone (Aldactone -) 25 mg PO BID [facility] Last Admin: 05/11/19 11:23 Dose: 25 mg Tamsulosin HCl (Flomax -) 0.8 mg PO HS [facility] Last Admin: 05/10/19 21:35 Dose: 0.8 mg Tramadol HCl (Ultram -) 50 mg PO Q6H PRN PRN Reason: PAIN LEVEL 6-10 Last Admin: 05/11/19 11:20 Dose: 50 mg O 78 year old male in no distress, no pallor or cyanosis, clubbing or jaundice. Last Vital Signs Temp Pulse Resp BP Pulse Ox 98.4 F 69 18 86/51 L 99 05/11/19 14:00 05/11/19 14:00 05/11/19 14:00 05/11/19 14:00 05/11/19 09:00 NECK: supple, no JVD, carotids 2+. HEART: No heaves or thrills, S1 & S2 are normal. No murmur or gallops heard. LUNGS: Fine creps. at the right base. decreased breath sounds at both bases. EXTREMIETES: Bilateral 2+ pedal edema. Bilateral stasis changes scars both lower extremities. Rt. arm/hand is contracted and atrophic. CBC, BMP 05/11/19 05:28 05/11/19 05:28 Stress test results pending. IMPRESSION: 1.CHF resolved 2.CAD, s/p CABG. 3.Severe LV systolic dysfunction. 4.Hypokalemia. 5.Left lower extremity DVT. 6.Hypothyoidism. 7.Hypertension. 8.Hyperlipidemia. 9.Type II DM. RECOMMENDATIONS: 1. Continue current csrdiac therapy. 2. Further suggestions depending on Stress test results.
[2019-05-11 19:36] VITALS: BMI 23.4
[2019-05-11] MEDS: DOCUSATE SODIUM 100 MG CAPSULE (FP) PO SCH (21:55)
[2019-05-11] MEDS: TAMSULOSIN HCL 0.4 MG CAP PO SCH (21:57)
[2019-05-11] MEDS: ALPRAZolam 0.25 MG TABLET PO SCH (21:58)
[2019-05-11] MEDS: ATORVASTATIN CA 80 MG TABLET (FP) PO SCH (21:58)
[2019-05-12] MEDS: INSULIN SLIDING SCALE (NOVOLOG) 1 VIAL SQ SCH ×4 (06:04→22:31)
[2019-05-12] MEDS: LEVOTHYROXINE 100 MCG, LEVOTHYROXINE 75 MCG PO SCH (06:04)
[2019-05-12] MEDS: DICLOXACILLIN SODIUM 250 MG CAPSULE PO SCH ×2 (06:04→13:14)
[2019-05-12] MEDS: CARVEDILOL 3.125 MG TABLET (FP) PO SCH ×2 (10:37→22:32)
[2019-05-12] MEDS: SPIRONOLACTONE 25 MG TABLET (FP) PO SCH ×2 (10:37→22:32)
[2019-05-12] MEDS: levETIRAcetam 250 MG TABLET (FP) PO SCH ×2 (10:37→22:31)
[2019-05-12] MEDS: FUROSEMIDE 40 MG TABLET (FP) PO SCH (10:37)
[2019-05-12] MEDS: ESCITALOPRAM OXALATE 10 MG TABLET (FP) PO SCH (10:37)
[2019-05-12] MEDS: APIXABAN 5 MG TABLET PO SCH ×2 (10:37→22:32)
[2019-05-12] MEDS: ASPIRIN 81 MG CHEWABLE TABLETS PO SCH (10:37)
[2019-05-12] MEDS: ENALAPRIL MALEATE 2.5 MG TABLET (FP) PO SCH (10:38)
--- NOTE | 2019-05-12 12:13 | PN ---
Progress Note (short form) - Note Progress Note: 78 year old male known case of CAD/s/p CABG, severe LV systolic dysfunction, history of atrial fib,Hypertension, hyperlipidemia, typeII DM, hypothyroidism. DVT. S/p meningioma. No SOB, chest pain or discomfort, no palpitations, lightheadedness or dizziness. Active Medications Acetaminophen (Tylenol -) 650 mg PO Q6H PRN PRN Reason: PAIN LEVEL 1-5 Last Admin: 05/09/19 18:46 Dose: 650 mg Alprazolam (Xanax -) 1 mg PO HS [facility] Last Admin: 05/11/19 21:58 Dose: 1 mg Apixaban (Eliquis -) 5 mg PO BID [facility] Last Admin: 05/12/19 10:37 Dose: 5 mg Aspirin (Asa -) 81 mg PO DAILY [facility] Last Admin: 05/12/19 10:37 Dose: 81 mg Atorvastatin Calcium (Lipitor -) 80 mg PO [facility] Last Admin: 05/11/19 21:58 Dose: 80 mg Carvedilol (Coreg -) 3.125 mg PO BID [facility] Last Admin: 05/12/19 10:37 Dose: 3.125 mg Dicloxacillin Sodium (Dynapen -) 500 mg PO TID [facility] Last Admin: 05/12/19 06:04 Dose: 500 mg Docusate Sodium (Colace -) 300 mg PO [facility] Last Admin: 05/11/19 21:55 Dose: 300 mg Enalapril Maleate (Vasotec -) 2.5 mg PO DAILY [facility] Last Admin: 05/12/19 10:38 Dose: Not Given Escitalopram Oxalate (Lexapro -) 10 mg PO DAILY [facility] Last Admin: 05/12/19 10:37 Dose: 10 mg Furosemide (Lasix -) 40 mg PO DAILY [facility] Last Admin: 05/12/19 10:37 Dose: 40 mg Insulin Aspart (Novolog Vial Sliding Scale -) 1 vial SQ [facility]; Protocol Last Admin: 05/12/19 06:04 Dose: Not Given Levetiracetam (Keppra -) 750 mg PO BID [facility] Last Admin: 05/12/19 10:37 Dose: 750 mg Levothyroxine Sodium 100 mcg/ (Levothyroxine Sodium 75 mcg) 175 mcg PO DAILY@ 0700 [facility] Last Admin: 05/12/19 06:04 Dose: 175 mcg Spironolactone (Aldactone -) 25 mg PO BID [facility] Last Admin: 05/12/19 10:37 Dose: 25 mg Tamsulosin HCl (Flomax -) 0.8 mg PO HS [facility] Last Admin: 05/11/19 21:57 Dose: 0.8 mg Tramadol HCl (Ultram -) 50 mg PO Q6H PRN PRN Reason: PAIN LEVEL 6-10 Last Admin: 05/11/19 11:20 Dose: 50 mg O: 78 year old male in no distress, no pallor or cyanosis, clubbing or jaundice. Last Vital Signs Temp Pulse Resp BP Pulse Ox 97.9 F 74 18 98/59 L 99 05/12/19 06:00 05/12/19 10:00 05/12/19 10:00 05/12/19 10:00 05/12/19 09:00 NECK: supple, no JVD, carotids 2+. HEART: No heaves or thrills, S1 & S2 are normal. No murmur or gallops heard. LUNGS: Fine creps. at the right base. decreased breath sounds at both bases. EXTREMIETES: Bilateral 2+ pedal edema. Bilateral stasis changes scars both lower extremities. Rt. arm/hand is contracted and atrophic. CBC, BMP 05/11/19 05:28 05/11/19 05:28 MUGA Scan 05/11/19 Moderate to severe decreased left ventricular systolic function. IMPRESSION: 1.CHF resolved 2.CAD, s/p CABG. 3.Severe LV systolic dysfunction. 4.Hypokalemia. 5.Left lower extremity DVT. 6.Hypothyoidism. 7.Hypertension. 8.Hyperlipidemia. 9.Type II DM. RECOMMENDATIONS: 1. Continue current cardiac therapy. 2. Patient will need to be treated for DVT prior to making further decisions regarding myocardial perfusion study, possible cardiac catheterization and if necessary insertion of AICD. 3. Patient will require a follow up venous doppler study in 4-6 weeks.
--- NOTE | 2019-05-12 13:05 | DS ---
Physical Examination Vital Signs: Vital Signs Temperature 97.9 F 05/12/19 06:00 Pulse Rate 74 05/12/19 10:00 Respiratory Rate 18 05/12/19 10:00 Blood Pressure 98/59 L 05/12/19 10:00 O2 Sat by Pulse Oximetry (%) 99 05/12/19 09:00 Constitutional: Yes: No Distress, Calm Cardiovascular: Yes: Pulse Irregular Respiratory: Yes: CTA Bilaterally Gastrointestinal: Yes: Normal Bowel Sounds, Soft. No: Tenderness Edema: Yes (decreased) Labs: CBC, BMP 05/11/19 05:28 05/11/19 05:28 Discharge Summary Reason For Visit: CHF Current Active Problems BPH (benign prostatic hyperplasia) (Acute) CAD (coronary artery disease) (Acute) Deep vein thrombosis (DVT) of left lower extremity (Acute) Diabetes (Acute) Hyperlipemia (Acute) Knee pain, left (Acute) Meningioma (Acute) Osteomyelitis (Acute) Systolic CHF, acute on chronic (Acute) Hospital Course: ADMISSION HISTORY - Primary Care Physician PCP: Glenda Todd - Admission Chief Complaint: SOB History of Present Illness: 78M with a PMH of CAD s/p 4V CABG, PAF, HTN, HLD, systolic CHF, hypothyroidism, DMII, Chronic osteomyelitis, and parietal meningioma (s/p resection 2001) who presents to the ER with complaints of shortness of breath. The patient states that he was laying down to rest at night and felt some difficulty "catching his breath" and a productive cough with clear sputum. States he left "warm" but no fever documented. He admits to "some" palpitations but denies CP, chills, nausea , vomiting, diaphoresis, numbness, tingling, weakness, lightheadedness. Admits to chronic orthopnea and b/l LE swelling. He had a recent PE in 01/20 and was on Eliquis but was taken off due to fall risk and is now on 81mg asa. Daughter states he was on lasix/aldactone but hasn't taken it in months. Last visit to PMD was in 01/20 after he was discharged from 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: CVA (questionable CVA in past), Peripheral Neuropathy, Other ( meningioma) Cardiovascular: Yes: AFIB, CAD (s/p CABG), CHF, Deep Vein Thrombosis, HTN, Hyperlipdemia Pulmonary: Yes: Pulmonary Embolus (01/20) Renal/: Yes: BPH Heme/Onc: Yes: Anemia Psych: Yes: Anxiety, Depression Musculoskeletal: Yes: Chronic low back pain, Osteoarthritis (to left knee) Endocrine: Yes: Diabetes Mellitus, Hypothyroidism HOSPITAL COURSE pt was evaluated by Renal and Cardiology CTA chest -- negative for PE, but sono left leg positive for DVT Was started on Eliquis and Hb is stable - no bleeding He was on IV lasix and Aldactone diuresed well MUGA scan done 05/11/19-- severe lv dysfunction-- EF 34% Pt should follow up with cardiology for AICD placement IV lasix now changed to PO He is stable for dc renal function stable Condition: Improved - Instructions - Home Medications Comprehensive Discharge Medication List: Ambulatory Orders Alprazolam [Xanax] 1 mg PO HS 02/18/19 Atorvastatin Ca [Lipitor] 80 mg PO HS 02/18/19 Carvedilol [Coreg -] 3.125 mg PO TID 02/18/19 Dicloxacillin Sodium 500 mg PO Q8H 02/18/19 Docusate Sodium [Colace] 100 mg PO BID 02/18/19 Escitalopram Oxalate [Lexapro -] 10 mg PO DAILY 02/18/19 Levetiracetam [Keppra] 750 mg PO BID 02/18/19 Tamsulosin HCl [Flomax] 0.8 mg PO HS 02/18/19 Aspirin [ASA -] 81 mg PO DAILY 05/05/19 Apixaban [Eliquis -] 5 mg PO BID #60 tablet 05/12/19 Enalapril Maleate [Vasotec -] 2.5 mg PO DAILY #30 tablet 05/12/19 Furosemide [Lasix -] 40 mg PO DAILY #30 tablet 05/12/19 Levothyroxine [Synthroid -] 175 mcg PO DAILY@0700 #30 tablet 05/12/19 Levothyroxine [Synthroid -] 175 mcg PO DAILY@0700 #30 tablet 05/12/19 Spironolactone [Aldactone -] 25 mg PO DAILY #30 tablet 05/12/19
[2019-05-12] MEDS: DOCUSATE SODIUM 100 MG CAPSULE (FP) PO SCH (22:32)
[2019-05-12] MEDS: ATORVASTATIN CA 80 MG TABLET (FP) PO SCH (22:32)
[2019-05-12] MEDS: TAMSULOSIN HCL 0.4 MG CAP PO SCH (22:32)
[2019-05-12] MEDS: traMADol HCL 50 MG TABLET PO PRN (23:04)
[2019-05-13] MEDS ORDERED: LEVOTHYROXINE NA 75 MCG TABLET (FP) ONE (05:35)
[2019-05-13] MEDS ORDERED: LEVOTHYROXINE NA 100 MCG TABLET (FP) ONE (05:36)
[2019-05-13] MEDS: LEVOTHYROXINE 100 MCG, LEVOTHYROXINE 75 MCG PO SCH (06:06)
[2019-05-13] MEDS: INSULIN SLIDING SCALE (NOVOLOG) 1 VIAL SQ SCH (06:18)
[2019-05-13] MEDS ORDERED: PT OWN MED DRAWER 7, Y5N ONE (09:34)
[2019-05-13] MEDS: SPIRONOLACTONE 25 MG TABLET (FP) PO SCH (09:50)
[2019-05-13] MEDS: FUROSEMIDE 40 MG TABLET (FP) PO SCH (09:50)
[2019-05-13] MEDS: ESCITALOPRAM OXALATE 10 MG TABLET (FP) PO SCH (09:50)
[2019-05-13] MEDS: APIXABAN 5 MG TABLET PO SCH (09:50)
[2019-05-13] MEDS: ASPIRIN 81 MG CHEWABLE TABLETS PO SCH (09:50)
[2019-05-13] MEDS: ENALAPRIL MALEATE 2.5 MG TABLET (FP) PO SCH (09:50)
[2019-05-13] MEDS: levETIRAcetam 250 MG TABLET (FP) PO SCH (09:50)
[2019-05-13] MEDS: CARVEDILOL 3.125 MG TABLET (FP) PO SCH (09:50)
--- NOTE | 2019-05-13 12:29 | PN ---
Progress Note (short form) - Note Progress Note: comfortable lying flat in bed no sob Vital Signs - 24 hr 05/12/19 05/12/19 05/12/19 14:00 17:00 21:00 Temperature 98.0 F 98.1 F 98.4 F Pulse Rate 78 77 75 Respiratory 20 18 Rate Blood Pressure 87/55 L 84/54 L 90/60 O2 Sat by Pulse 98 Oximetry (%) 05/13/19 05/13/19 05/13/19 02:00 07:52 10:00 Temperature 98.0 F 97.8 F Pulse Rate 83 78 Respiratory 18 18 18 Rate Blood Pressure 101/53 L 90/57 L O2 Sat by Pulse 98 Oximetry (%) Current Medications Generic Name Dose Route Start Last Admin Trade Name Freq PRN Reason Stop Dose Admin Acetaminophen 650 mg 05/06/19 23:03 05/09/19 18:46 Tylenol - PO 650 mg Q6H PRN Administration PAIN LEVEL 1-5 Apixaban 5 mg 05/05/19 12:00 05/13/19 09:50 Eliquis - PO 5 mg BID [facility] Administration Aspirin 81 mg 05/05/19 10:00 05/13/19 09:50 Asa - PO 81 mg DAILY [facility] Administration Atorvastatin Calcium 80 mg 05/05/19 22:00 05/12/19 22:32 Lipitor - PO 80 mg HS [facility] Administration Carvedilol 3.125 mg 05/05/19 10:00 05/13/19 09:50 Coreg - PO 3.125 mg BID [facility] Administration Docusate Sodium 300 mg 05/10/19 22:00 05/12/19 22:32 Colace - PO 300 mg HS [facility] Administration Enalapril Maleate 2.5 mg 05/08/19 10:00 05/13/19 09:50 Vasotec - PO 2.5 mg DAILY [facility] Administration Escitalopram Oxalate 10 mg 05/05/19 10:00 05/13/19 09:50 Lexapro - PO 10 mg DAILY [facility] Administration Furosemide 40 mg 05/11/19 10:00 05/13/19 09:50 Lasix - PO 40 mg DAILY [facility] Administration Insulin Aspart 1 vial 05/05/19 11:00 05/13/19 06:18 Novolog Vial Sliding Scale - SQ Not Given ACHS [facility] Protocol Levetiracetam 750 mg 05/05/19 10:00 05/13/19 09:50 Keppra - PO 750 mg BID [facility] Administration Levothyroxine Sodium 100 mcg/ 175 mcg 05/07/19 07:00 05/13/19 06:06 Levothyroxine Sodium 75 mcg PO 175 mcg DAILY@0700 [facility] Administration Spironolactone 25 mg 05/05/19 10:00 05/13/19 09:50 Aldactone - PO 25 mg BID [facility] Administration Tamsulosin HCl 0.8 mg 05/05/19 22:00 05/12/19 22:32 Flomax - PO 0.8 mg HS [facility] Administration Laboratory Results - last 24 hr 05/12/19 05/12/19 05/13/19 17:42 22:30 06:08 POC Glucometer 116 96 91 S1 s2 Irregular Lungs decreased , no crackles Abd- soft, NT Edema+ PLAN CHF -- on lasix and aldactone weight is decreasing clinically improving renal function stable Afib -- rate is controlled, on ASA DVT-- on eliquis now monitor for any signs of bleeding STABLE FOR DC TO [place] Problem List - Problems (1) Systolic CHF, acute on chronic Code(s): I50.23 - ACUTE ON CHRONIC SYSTOLIC (CONGESTIVE) HEART FAILURE (2) Deep vein thrombosis (DVT) of left lower extremity Code(s): I82.402 - ACUTE EMBOLISM AND THOMBOS UNSP DEEP VEINS OF L LOW EXTREM Qualifiers: Chronicity: acute (3) Atrial fibrillation Code(s): I48.91 - UNSPECIFIED ATRIAL FIBRILLATION Qualifiers: Atrial fibrillation type: persistent Qualified Code(s): I48.1 - Persistent atrial fibrillation (4) CAD (coronary artery disease) Code(s): I25.10 - ATHSCL HEART DISEASE OF [place] CORONARY ARTERY W/O ANG PCTRS Qualifiers: Coronary Disease-Associated Artery/Lesion type: bypass graft [place] vs. transplanted heart: [place] heart Associated angina: angina presence unspecified Qualified Code(s): I25.810 - Atherosclerosis of coronary artery bypass graft(s) without angina pectoris
[2019-05-13 15:23] VITALS: BP 87/49; PULSE 76; TEMP 98.2
--- NOTE | 2019-05-13 18:41 | PN ---
Progress Note (short form) - Note Progress Note: 78 year old male known case of CAD/s/p CABG, severe LV systolic dysfunction, history of atrial fib,Hypertension, hyperlipidemia, typeII DM, hypothyroidism. DVT. S/p meningioma. No SOB, chest pain or discomfort, no palpitations, lightheadedness or dizziness. Active Medications Acetaminophen (Tylenol -) 650 mg PO Q6H PRN PRN Reason: PAIN LEVEL 1-5 Last Admin: 05/09/19 18:46 Dose: 650 mg Alprazolam (Xanax -) 1 mg PO HS [facility] Last Admin: 05/11/19 21:58 Dose: 1 mg Apixaban (Eliquis -) 5 mg PO BID [facility] Last Admin: 05/12/19 10:37 Dose: 5 mg Aspirin (Asa -) 81 mg PO DAILY [facility] Last Admin: 05/12/19 10:37 Dose: 81 mg Atorvastatin Calcium (Lipitor -) 80 mg PO [facility] Last Admin: 05/11/19 21:58 Dose: 80 mg Carvedilol (Coreg -) 3.125 mg PO BID [facility] Last Admin: 05/12/19 10:37 Dose: 3.125 mg Dicloxacillin Sodium (Dynapen -) 500 mg PO TID [facility] Last Admin: 05/12/19 06:04 Dose: 500 mg Docusate Sodium (Colace -) 300 mg PO [facility] Last Admin: 05/11/19 21:55 Dose: 300 mg Enalapril Maleate (Vasotec -) 2.5 mg PO DAILY [facility] Last Admin: 05/12/19 10:38 Dose: Not Given Escitalopram Oxalate (Lexapro -) 10 mg PO DAILY [facility] Last Admin: 05/12/19 10:37 Dose: 10 mg Furosemide (Lasix -) 40 mg PO DAILY [facility] Last Admin: 05/12/19 10:37 Dose: 40 mg Insulin Aspart (Novolog Vial Sliding Scale -) 1 vial SQ [facility]; Protocol Last Admin: 05/12/19 06:04 Dose: Not Given Levetiracetam (Keppra -) 750 mg PO BID [facility] Last Admin: 05/12/19 10:37 Dose: 750 mg Levothyroxine Sodium 100 mcg/ (Levothyroxine Sodium 75 mcg) 175 mcg PO DAILY@ 0700 [facility] Last Admin: 05/12/19 06:04 Dose: 175 mcg Spironolactone (Aldactone -) 25 mg PO BID [facility] Last Admin: 05/12/19 10:37 Dose: 25 mg Tamsulosin HCl (Flomax -) 0.8 mg PO HS [facility] Last Admin: 05/11/19 21:57 Dose: 0.8 mg Tramadol HCl (Ultram -) 50 mg PO Q6H PRN PRN Reason: PAIN LEVEL 6-10 Last Admin: 05/11/19 11:20 Dose: 50 mg O: 78 year old male in no distress, no pallor or cyanosis, clubbing or jaundice. Last Vital Signs Temp Pulse Resp BP Pulse Ox 97.9 F 74 18 98/59 L 99 05/12/19 06:00 05/12/19 10:00 05/12/19 10:00 05/12/19 10:00 05/12/19 09:00 NECK: supple, no JVD, carotids 2+. HEART: No heaves or thrills, S1 & S2 are normal. No murmur or gallops heard. LUNGS: Fine creps. at the right base. decreased breath sounds at both bases. EXTREMIETES: Bilateral 2+ pedal edema. Bilateral stasis changes scars both lower extremities. Rt. arm/hand is contracted and atrophic. CBC, BMP 05/11/19 05:28 05/11/19 05:28 MUGA Scan 05/11/19 Moderate to severe decreased left ventricular systolic function. IMPRESSION: 1.CHF resolved 2.CAD, s/p CABG. 3.Severe LV systolic dysfunction. 4.Hypokalemia. 5.Left lower extremity DVT. 6.Hypothyoidism. 7.Hypertension. 8.Hyperlipidemia. 9.Type II DM. RECOMMENDATIONS: 1. Continue current cardiac therapy. 2. Patient is currenty being treated for DVT, prior to making further decisions regarding myocardial perfusion study, possible cardiac catheterization and if necessary insertion of AICD will depend upon resolution of DVT. 3. Patient will require a follow up venous doppler study in 4-6 weeks.
== END 2019-05-13 18:17 | DRG 299 ==
LOC: JER 01:54 → JERBED 06:18 → J4W 15:59
PROVIDERS: ADMIT Internal Medicine; ATTEND Internal Medicine
DX: I82.4Z2 Acute embolism and thrombosis of unspecified deep veins of left distal lower extremity (principal); I50.43 Acute on chronic combined systolic (congestive) and diastolic (congestive) heart failure; M86.8X8 Other osteomyelitis, other site; I48.1 Persistent atrial fibrillation; I11.0 Hypertensive heart disease with heart failure; I25.10 Atherosclerotic heart disease of native coronary artery without angina pectoris; I10 Essential (primary) hypertension; E78.5 Hyperlipidemia, unspecified; E03.9 Hypothyroidism, unspecified; I48.0 Paroxysmal atrial fibrillation; E11.69 Type 2 diabetes mellitus with other specified complication; E11.42 Type 2 diabetes mellitus with diabetic polyneuropathy; M54.5 Low back pain; N40.0 Benign prostatic hyperplasia without lower urinary tract symptoms; D64.9 Anemia, unspecified; D32.0 Benign neoplasm of cerebral meninges; M25.562 Pain in left knee; I89.0 Lymphedema, not elsewhere classified; E87.6 Hypokalemia; F41.8 Other specified anxiety disorders; M17.12 Unilateral primary osteoarthritis, left knee; Z86.711 Personal history of pulmonary embolism; Z95.1 Presence of aortocoronary bypass graft
CPT/HCPCS: 36415; 71045-TC-FY; 71275-TC; 78472-TC; 80048; 80053; 82550; 82962; 83735; 83880; 84100; 84443; 84484; 85025; 85027; 85610; 93005; 93010; 93306-TC; 93970-TC; 97162-GP; 99282-25; A9538

== ENCOUNTER 2019-06-20 15:00 | Emergency (ER) | payer OTHER, BC ==
--- NOTE | 2019-06-20 16:20 | PDOC ---
History of Present Illness - General Chief Complaint: Pain Stated Complaint: HIP PAIN History Source: Patient Exam Limitations: No Limitations - History of Present Illness Initial Comments: 06/20/19 16:19 HPI: 78yo man with a PMH of CAD s/p 4V CABG, pAF, HTN, HLD, systolic CHF, hypothyroidism, DMII, BPH, ?CVA, Chronic osteomyelitis, and parietal meningioma (s/p resection 2001) who presents with hip pain for 1 day. Patient unable to ambulate at baseline, has 24hour OFFICE ADMINISTRATIVE ASSISTANT that moves him from bed to wheelchair and back. Reports last night after being put in bed he developed sudden onset 9/10 dull right hip pain that minimally responded to tramadol and has continued until the current time with intermittent waning to 7/10. Pain is accompanied by intermittent R leg fasciculations ("the nerves are doing their own thing") that occurred "more times than can be counted" even while in the ED - two episodes observed over 15 minute interview. Pain is not worsened during these episodes. Pt denies any trauma and reports that he has been laying on his right hip a lot and wonders if that is contributing. Denies any shooting / burning pain, no radiation, no new or changed weakness, no numbness or tingling. He has had multiple episodes of PT for his R sided weakness / bilateral LE weakness and has reached the maximum allowed by his insurance. Recently admitted for SOB, worked up for PE vs CHF exacerbation, found to have bilateral DVTs with no PE, diuresed and discharged on anticoagulation. Denies CP, SOB, diaphoresis, cough, fevers, chills, nausea, vomiting, changes in DMs, dysuria at this time. Pt has been followed by two affiliated neurologists but requests referral to a different one. DA Meds: per chart PMH: as above PSH: R leg flap, remote CABG, meningioma resection 2001 SHx: lives at home, with 24hr OFFICE ADMINISTRATIVE ASSISTANT Past History - Travel Traveled outside of the country in the last 30 days: No Close contact w/someone who was outside of country & ill: No - Past Medical History Allergies/Adverse Reactions: Allergies Allergy/AdvReac Type Severity Reaction Status Date / Time No Known Drug Allergies Allergy Verified 06/20/19 18:15 strawberry Allergy Hives Verified 06/20/19 18:15 Home Medications: Ambulatory Orders Alprazolam [Xanax] 1 mg PO HS 02/18/19 Atorvastatin Ca [Lipitor] 80 mg PO HS 02/18/19 Carvedilol [Coreg -] 3.125 mg PO TID 02/18/19 Dicloxacillin Sodium 500 mg PO Q8H 02/18/19 Docusate Sodium [Colace] 100 mg PO BID 02/18/19 Escitalopram Oxalate [Lexapro -] 10 mg PO DAILY 02/18/19 Levetiracetam [Keppra] 750 mg PO BID 02/18/19 Tamsulosin HCl [Flomax] 0.8 mg PO HS 02/18/19 Aspirin [ASA -] 81 mg PO DAILY 05/05/19 Apixaban [Eliquis -] 5 mg PO BID #60 tablet 05/12/19 Enalapril Maleate [Vasotec -] 2.5 mg PO DAILY #30 tablet 05/12/19 Furosemide [Lasix -] 40 mg PO DAILY #30 tablet 05/12/19 Levothyroxine [Synthroid -] 175 mcg PO DAILY@0700 #30 tablet 05/12/19 Levothyroxine [Synthroid -] 175 mcg PO DAILY@0700 #30 tablet 05/12/19 Spironolactone [Aldactone -] 25 mg PO DAILY #30 tablet 05/12/19 Cyclobenzaprine HCl [Flexeril -] 10 mg PO BID PRN #6 tablet 06/20/19 Anemia: Yes Cancer: Yes (brain tumor) Cardiac Disorders: Yes (bypass sx) CVA: Yes (QUESTIONABLE cva IN PAST) COPD: No CHF: Yes Diabetes: Yes Disorders: Yes (bph) HTN: Yes Hypercholesterolemia: Yes Seizures: Yes Thyroid Disease: Yes (HYPO) - Surgical History Appendectomy: Yes Cardiac Surgery: Yes (CABG) Neurologic Surgery: Yes (MENINGIOMA REMOVED) - Immunization History Immunization Up to Date: (UNKNOWN) - Suicide/Smoking/Psychosocial Hx Smoking History: Never smoked Have you smoked in the past 12 months: No If you are a former smoker, when did you quit?: 40YRS AGO Hx Alcohol Use: No Drug/Substance Use Hx: No Substance Use Type: Alcohol Hx Substance Use Treatment: No Review of Systems - Review of Systems Able to Perform ROS?: Yes Is the patient limited [place] proficient: No Constitutional: No: Chills, Fever HEENTM: No: Symptoms Reported, Nose Pain, Nose Congestion, Throat Pain Respiratory: No: Cough, Shortness of Breath, SOB at Rest, Stridor, Wheezing Cardiac (ROS): Yes: Irregular Heart Rate (p-afib). No: Chest Pain, Edema, Palpitations, Syncope, Chest Tightness ABD/GI: No: Abdominal Distended, Constipated, Diarrhea, Nausea, Poor Appetite, Poor Fluid Intake, Rectal Bleeding, Vomiting : No: Burning, Dysuria, Discharge, Hematuria Musculoskeletal: Yes: See HPI, Joint Pain, Muscle Weakness Integumentary: No: Symptoms Reported, Dryness, Erythema, Lesions, Pruritus, Rash Neurological: Yes: See HPI, Weakness. No: Headache, Numbness, Seizure, Tingling All Other Systems: Reviewed and Negative *Physical Exam - Physical Exam Comments: 06/20/19 17:00 Vitals: notable for hypotension to 93/55 (c/w baseline), otherwise HDS Gen: elderly man, alert, cooperative, contracted / flexed right arm CV: RRR, nl s1/s2, no murmurs or bruits appreciated Pulm: CTABL, normal WOB, no wheezes / rales / rhonchi Abd: Soft, nontender, nondistended Neuro: alert and oriented, 4+ strength b/l hip flexors, 2+ strength in bilateral feet - reported baseline, sensation intact throughout LE, R quad with fasciculations twice over 15 minutes while at bedside, nonpainful, only in quads. Pulses: 2+ radial and PT, DP difficult to palpate, 2+ femoral on right leg. Ext: no clubbing / cyanosis / edema, compartments soft, non-tender, ecchymosis vs chronic skin changes on bilateral shins, left left with scar from prior flap for chronic skin changes. Legs same length, both in normal supine position without rotation. No bruising / erythema / warmth. ED Treatment Course - LABORATORY CBC & Chemistry Diagram: 06/20/19 16:55 06/20/19 16:55 Medical Decision Making - Medical Decision Making 06/20/19 17:09 78yo man with a PMH of CAD s/p 4V CABG, PAF, HTN, HLD, systolic CHF, hypothyroidism, DMII, BPH, ?CVA, Chronic osteomyelitis, and parietal meningioma (s/p resection 2001) who presents with dull hip pain for 1 day. History notable for no trauma. Exam notable for neurovascularly intact, +fasciculation, pain worsened with flexion, asymptomatic hypotension (appears to be baseline). DDX includes but not limited to: pathologic fracture, MSK pain, dehydration, or less likely radiculopathy (atypical story), early septic hip (afebrile, no cause ), DVT (less likely given exam). -CBC, CMP -R hip plain film -1g IV Tylenol 06/20/19 17:55 -No leukocyytosis -Mild anemia RBC 3.9 -Slightly elevated BUN -Cr within normal limits -Mildly elevated alk phos without clear clinical significance -Xray pending 06/20/19 18:21 -R-hip and pelvis X-ray without signs of fracture -Pain improving with IV Tylenol Most likely pain 2/2 chronic immobilization and muscle spasm, will discharge with flexeril and orthopaedic referral Dispo: home via ambulette *DC/Admit/Observation/Transfer Diagnosis at time of Disposition: Hip pain, right - Discharge Dispostion Disposition: HOME Condition at time of disposition: Improved Decision to Admit order: No - Prescriptions Prescriptions: Cyclobenzaprine HCl [Flexeril -] 10 mg PO BID PRN #6 tablet PRN Reason: Pain - Referrals Referrals: Keshav Arzate DO [Staff Physician] - Brown Salazar MD [Staff Physician] - - Patient Instructions Printed Discharge Instructions: DI for Hip Pain Additional Instructions: 1. You have been prescribed Flexeril for your hip pain, it has been sent to your pharmacy, please use as directed. You can also continue to use Tylenol for your pain as directed on package. Ice the affected area (20 minutes of ice then 20 minutes without). Elevate on a butt pillow while you're in bed for comfort. 2. A referral has been provided for Dr. Arzate with orthopaedic surgery for further evaluation with MRI. Please follow up within 1 week if your symptoms do not improve. 3. Please return to the emergency department for any new weakness, numbness, tingling, fevers, severe pain, or other new / worsening symptoms. - Post Discharge Activity
[2019-06-20] MEDS ORDERED: ACETAMINOPHEN 1000 MG/100 ML VIAL (NON FORMULARY) IVPB ONE (16:52)
[2019-06-20] MEDS ORDERED: ACETAMINOPHEN INJECTION 100 ML IVPB ONE (16:56)
[2019-06-20 17:00] VITALS: BMI 29.2
[2019-06-20 17:21] LABS: BASO % 0.4 % (0-2.0); EOS % 4.4 % (0-4.5); HEMATOCRIT 37.2 % (35.4-49); HEMOGLOBIN 12.6 GM/dL (11.7-16.9); LYMPH % 17.7 % (8-40); MCH 32.2 pg (25.7-33.7); MCHC 33.8 g/dl (32.0-35.9); MEAN CELL VOLUME 95.3 fl (80-96); MONO % 14.2 % (3.8-10.2); NEUT % 63.3 % (42.8-82.8); PLATELET COUNT 199 K/MM3 (134-434); RDW 16.2 % (11.9-15.9); WHITE BLOOD COUNT 5.4 K/mm3 (4.0-10.0)
--- NOTE | 2019-06-20 17:36 | PDOC ---
Documentation entered by Perla Antonio SCRIBE, acting as scribe for Shad Fabian MD. Shad Fabian MD: This documentation has been prepared by the Marisela bill Xhesika, SCRIBE, under my direction and personally reviewed by me in its entirety. I confirm that the documentation accurately reflects all work, treatment, procedures, and medical decision making performed by me. Attending Attestation - Resident Resident Name: Yazan,Giacomo - ED Attending Attestation I have performed the following: I have examined & evaluated the patient, The case was reviewed & discussed with the resident, I agree w/resident's findings & plan, Exceptions are as noted - HPI HPI: 06/20/19 17:29 The patient is a 78 year old male with a PMH of CAD s/p 4V CABG, PAF, HTN, HLD, systolic CHF, hypothyroidism, DMII, Chronic osteomyelitis, and parietal meningioma (s/p resection 2001) who presents to the ED with 1 day of R hip pain. Patient denies falling or trauma. Patient notes he usually lays flat on his back, however, he sleeps on a hospital bed at home. Allergies: Strawberries, NKDA PSH: CABG, meningioma resection Social Hx: Denies current smoking, drinking, or other substance usage. PCP: Dr. Campbell - Physicial Exam PE: 06/20/19 17:30 Vitals: Triage Vital signs reviewed General Appearance: no acute distress, well nourished well developed, Head: Atraumatic, normocephalic Extremities: (+) reproducible R posterior buttock pain. No deformity. No swelling. No ecchymosis. No cyanosis, clubbing, or edema Skin: Warm and dry, no rashes or lesions, no petechiae Neuro: AOX3; Cranial Nerves 2-12 grossly c intact, Strength intact to all extremities, Sensation intact to all extremities, gait normal Psych: normal mood, normal affect - Medical Decision Making 06/20/19 18:33 78 years old bedbound with right musculoskeletal hip discomfort full range of motion. No bruising no trauma reproducible pain No acute fracture dislocation on x-ray labs within normal limits Recommend short course of Tylenol Flexeril or the follow-up and doughnut for support Findings, need for follow-up and strict return instructions discussed with patient.
[2019-06-20 17:47] LABS: ALBUMIN 3.4 g/dl (3.4-5.0); BILIRUBIN,TOTAL 0.9 mg/dL (0.2-1); BLOOD UREA NITROGEN 28.4 mg/dL (7-18); CALCIUM 8.9 mg/dL (8.5-10.1); CREATININE 0.9 mg/dL (0.55-1.3); POTASSIUM 4.3 mmol/L (3.5-5.1); TOT PROT 6.6 g/dl (6.4-8.2)
[2019-06-20 19:40] VITALS: BP 87/55; PULSE 74; TEMP 97.8
--- NOTE | 2019-06-25 11:40 | EKG ---
Test Reason : Blood Pressure : / mmHG Vent. Rate : 070 BPM Atrial Rate : 108 BPM P-R Int : 000 ms QRS Dur : 100 ms QT Int : 456 ms P-R-T Axes : 000 -53 068 degrees QTc Int : 492 ms ATRIAL FIBRILLATION LEFT AXIS DEVIATION LOW VOLTAGE QRS INFERIOR INFARCT (CITED ON OR BEFORE 23-JUL-2006) CANNOT RULE OUT ANTEROSEPTAL INFARCT , AGE UNDETERMINED ABNORMAL ECG WHEN COMPARED WITH ECG OF 05-MAY-2019 05:13, QUESTIONABLE CHANGE IN QRS DURATION MINIMAL CRITERIA FOR ANTEROSEPTAL INFARCT ARE NOW PRESENT Confirmed by BOBBY TEAGUE MD ([id number]) on 06/25/2019 11:40:26 AM Referred By: Confirmed By:BOBBY TEAGUE MD
== END 2019-06-20 22:35 | disposition home or self-care (01) ==
LOC: JER 15:00
PROC: 3E033NZ Introduction of Analgesics, Hypnotics, Sedatives into Peripheral Vein, Percutaneous Approach (ICD-10-PCS; principal; 2019-06-20)
DX: M25.551 Pain in right hip (principal); I11.0 Hypertensive heart disease with heart failure; E78.5 Hyperlipidemia, unspecified; I48.0 Paroxysmal atrial fibrillation; I50.20 Unspecified systolic (congestive) heart failure; E03.9 Hypothyroidism, unspecified; I25.10 Atherosclerotic heart disease of native coronary artery without angina pectoris; Z95.1 Presence of aortocoronary bypass graft; E11.9 Type 2 diabetes mellitus without complications; Z79.01 Long term (current) use of anticoagulants; M86.60 Other chronic osteomyelitis, unspecified site; D64.9 Anemia, unspecified; N40.0 Benign prostatic hyperplasia without lower urinary tract symptoms; G40.909 Epilepsy, unspecified, not intractable, without status epilepticus; Z85.841 Personal history of malignant neoplasm of brain
CPT/HCPCS: 36415; 73523-TC-FY; 80053; 85025; 93005; 93010; 96374; 99283-25; J0131

== ENCOUNTER 2019-07-01 13:42 | Emergency (ER) | payer OTHER, BC ==
[2019-07-01 14:17] VITALS: TEMP 98.4; BMI 20.9
--- NOTE | 2019-07-01 14:19 | PDOC ---
History of Present Illness - General Chief Complaint: SIRS, Suspected/Possible Stated Complaint: Urinary Problem Time Seen by Provider: 07/01/19 14:06 - History of Present Illness Initial Comments: 07/01/19 16:06 78 year old male with a PMH of CAD s/p 4V CABG, PAF, HTN, HLD, systolic CHF, hypothyroidism, DMII, Chronic osteomyelitis, and parietal meningioma (s/p resection 2001) who presents to the ED with 2 days of constipation and 1 day of urinary retention. He denies any nausea, vomiting, diarrrhea, constipation, abdominal pain or fever. He denies any chest pain or shortness of breath. He has no lightheadedness or headache. ROS GENERAL/CONSTITUTIONAL: No fever or chills. No weakness. HEAD, EYES, EARS, NOSE AND THROAT: No change in vision. No ear pain or discharge. No sore throat. CARDIOVASCULAR: No chest pain or shortness of breath RESPIRATORY: No cough, wheezing, or hemoptysis. GASTROINTESTINAL: No nausea, vomiting, diarrhea or constipation. GENITOURINARY: No dysuria, frequency, or change in urination. MUSCULOSKELETAL: No joint or muscle swelling or pain. No neck or back pain. SKIN: No rash NEUROLOGIC: No headache, vertigo, loss of consciousness, or change in strength/ sensation. PE GENERAL: Awake, alert, and fully oriented, bed bound, flat, in a diaper HEAD: No signs of trauma, normocephalic, atraumatic EYES: PERRLA, EOMI, sclera anicteric, conjunctiva clear ENT: Auricles normal inspection, hearing grossly normal, nares patent, oropharynx clear without exudates. Moist mucosa NECK: Normal ROM, supple, no lymphadenopathy, JVD, or masses LUNGS: No distress, speaks full sentences, clear to auscultation bilaterally HEART: Regular rate and rhythm, normal S1 and S2, no murmurs, rubs or gallops, peripheral pulses normal and equal bilaterally. ABDOMEN: Soft, nontender, normoactive bowel sounds. No guarding, no rebound. No masses EXTREMITIES : contracted R arm, held in flexion with wrapping on the forearm, feet with blue/purple NEUROLOGICAL: Cranial nerves II through XII grossly intact. Normal speech, normal gait, no focal sensorimotor deficits SKIN: Warm, Dry, normal turgor, no rashes or lesions noted MDM DDX including but not limited to: W/U: - TX: - Scores: ED Course: Patient stable for discharge. Informed of all lab and imaging results. Given follow up instructions and strict return precautions. Patient expressed understanding and agree to plan. Seo Professional #: Marlene Watkins PGY2 Emergency Medicine Past History - Past Medical History Allergies/Adverse Reactions: Allergies Allergy/AdvReac Type Severity Reaction Status Date / Time No Known Drug Allergies Allergy Verified 07/01/19 14:01 strawberry Allergy Hives Verified 07/01/19 14:01 Home Medications: Ambulatory Orders Alprazolam [Xanax] 1 mg PO HS 02/18/19 Atorvastatin Ca [Lipitor] 80 mg PO HS 02/18/19 Carvedilol [Coreg -] 3.125 mg PO TID 02/18/19 Dicloxacillin Sodium 500 mg PO Q8H 02/18/19 Docusate Sodium [Colace] 100 mg PO BID 02/18/19 Escitalopram Oxalate [Lexapro -] 10 mg PO DAILY 02/18/19 Levetiracetam [Keppra] 750 mg PO BID 02/18/19 Tamsulosin HCl [Flomax] 0.8 mg PO HS 02/18/19 Aspirin [ASA -] 81 mg PO DAILY 05/05/19 Apixaban [Eliquis -] 5 mg PO BID #60 tablet 05/12/19 Enalapril Maleate [Vasotec -] 2.5 mg PO DAILY #30 tablet 05/12/19 Furosemide [Lasix -] 40 mg PO DAILY #30 tablet 05/12/19 Levothyroxine [Synthroid -] 175 mcg PO DAILY@0700 #30 tablet 05/12/19 Levothyroxine [Synthroid -] 175 mcg PO DAILY@0700 #30 tablet 05/12/19 Spironolactone [Aldactone -] 25 mg PO DAILY #30 tablet 05/12/19 Cyclobenzaprine HCl [Flexeril -] 10 mg PO BID PRN #6 tablet 06/20/19 Anemia: Yes Cancer: Yes (brain tumor) Cardiac Disorders: Yes (bypass sx) CVA: Yes (QUESTIONABLE cva IN PAST) COPD: No CHF: Yes Diabetes: Yes Disorders: Yes (bph) HTN: Yes Hypercholesterolemia: Yes Seizures: Yes Thyroid Disease: Yes (HYPO) - Surgical History Appendectomy: Yes Cardiac Surgery: Yes (CABG) Neurologic Surgery: Yes (MENINGIOMA REMOVED) - Immunization History Immunization Up to Date: (UNKNOWN) - Suicide/Smoking/Psychosocial Hx Smoking History: Former smoker Have you smoked in the past 12 months: No If you are a former smoker, when did you quit?: 40YRS AGO Information on smoking cessation initiated: No Hx Alcohol Use: No Drug/Substance Use Hx: No Substance Use Type: Alcohol Hx Substance Use Treatment: No *Physical Exam - Vital Signs Last Vital Signs Temp Pulse Resp BP Pulse Ox 98.4 F 89 18 86/64 L 99 07/01/19 14:01 07/01/19 14:01 07/01/19 14:01 07/01/19 14:01 07/01/19 14:01 ED Treatment Course - LABORATORY CBC & Chemistry Diagram: 07/01/19 14:25 07/01/19 14:25 *DC/Admit/Observation/Transfer - Referrals Referrals: Zoie Campbell MD [Non Staff, Medical] - - Patient Instructions - Post Discharge Activity
[2019-07-01 14:33] LABS: EOS % 5.1 % (0-4.5); HEMATOCRIT 37.6 % (35.4-49); HEMOGLOBIN 12.7 GM/dL (11.7-16.9); LYMPH % 13.5 % (8-40); MCH 32.2 pg (25.7-33.7); MCHC 33.8 g/dl (32.0-35.9); MEAN PLT VOLUME 8.7 fl (7.5-11.1); MONO % 10.2 % (3.8-10.2); NEUT % 70.2 % (42.8-82.8); PLATELET COUNT 168 K/MM3 (134-434); RBC 3.95 M/mm3 (4.00-5.60); RDW 15.9 % (11.9-15.9); WHITE BLOOD COUNT 7.1 K/mm3 (4.0-10.0)
[2019-07-01 15:03] LABS: ALBUMIN 3.4 g/dl (3.4-5.0); BILIRUBIN,TOTAL 0.8 mg/dL (0.2-1); BLOOD UREA NITROGEN 23.9 mg/dL (7-18); CALCIUM 8.8 mg/dL (8.5-10.1); CREATININE 0.8 mg/dL (0.55-1.3); TOT PROT 6.7 g/dl (6.4-8.2)
[2019-07-01 15:03] LABS: URINE APPEARANCE CLEAR; URINE BILIRUBIN NEGATIVE (NEGATIVE); URINE COLOR YELLOW; URINE GLUCOSE (UA) NEGATIVE (NEGATIVE); URINE KETONE NEGATIVE (NEGATIVE); URINE LEUK ESTERASE NEGATIVE (NEGATIVE); URINE NITRITE NEGATIVE (NEGATIVE); URINE PROTEIN NEGATIVE (NEGATIVE)
[2019-07-01] MEDS ORDERED: ACETAMINOPHEN 1000 MG/100 ML VIAL (NON FORMULARY) IVPB ONE (15:24)
[2019-07-01] MEDS ORDERED: ACETAMINOPHEN INJECTION 100 ML IVPB ONE (15:26)
[2019-07-01 15:35] LABS: COCAINE, UR NEGATIVE ng/ml (CUTOFF=300); METHADONE, UR NEGATIVE ng/ml (CUTOFF=300); OPIATES, URI NEGATIVE ng/ml (CUTOFF=300); PHENCYCLIDINE,URINE NEGATIVE ng/ml (CUTOFF=25); URINE AMPHETAMINES NEGATIVE ng/ml (CUTOFF=500); URINE BARBITURATES NEGATIVE ng/ml (CUTOFF=200)
[2019-07-01 15:36] LABS: URINE BENZODIAZEPINES POSITIVE ng/ml (CUTOFF=200)
[2019-07-01] MEDS ORDERED: SODIUM CHLORIDE 1,000 ML IV SCH (15:45)
[2019-07-01] MEDS ORDERED: SODIUM CHLORIDE 500 ML IV SCH (15:45)
[2019-07-01 16:07] VITALS: BP 109/68; PULSE 86
--- NOTE | 2019-07-01 16:39 | PDOC ---
Documentation entered by Demi De Jesus SCRIBE, acting as scribe for Delio Marcelino MD. Delio Marcelino MD: This documentation has been prepared by the rosioeNeal Adrianna, SCRIBE, under my direction and personally reviewed by me in its entirety. I confirm that the documentation accurately reflects all work, treatment, procedures, and medical decision making performed by me. Attending Attestation - Resident Resident Name: Marlene Watkins - HPI HPI: 78 Y M, with PMH of CAD (s/p 4V CABG), PAF, HTN, HLD, systolic CHF, hypothyroidism, DMII, Chronic osteomyelitis, and parietal meningioma (s/p resection 2001), presents with one day of urinary retention. Patient reports feeling as if he has to urinate, but only produces dribbles of urine. Allergies: Sundance Surgical History: Appendectomy, 4V CABG, meningioma resection Social History: Former smoker (quit 40 years ago). PCP: - Physicial Exam PE: 07/01/19 16:35 Patient is awake and alert, frail-appearing, in mild distress Patient's hypotensive at baseline Normocephalic and atraumatic cta rrr Abdomen is soft, suprapubic and bilateral lower quadrant tenderness is appreciated with a distended bladder palpable at the level of the umbilicus Right upper extremity is held in flexion contraction + Hyperpigmentation and mottling of lower extremities bilaterally consistent with chronic stasis dermatitis and peripheral vascular disease; decreased pulses to lower extremity is bilaterally - Medical Decision Making 07/01/19 16:37 Patient is a frail appearing 78-year-old male with multiple comorbidities who presents with signs and symptoms of acute urinary retention. Alvarez catheter placed approximately 700 mL of dark colored urine obtained. UA reveals no evidence of pyuria. Patient's abdominal pain resolved upon bladder decompression. We'll judiciously hydrate. We'll administer IV Tylenol for right shoulder pain. Will reassess. will consider placing him in obs for measurements of ins and outs.
[2019-07-01] MEDS ORDERED: CEFAZOLIN 1 GM in DEXTROSE 5%-WATER - 50 ML IVPB ONE (16:44)
[2019-07-01] MEDS ORDERED: CEFAZOLIN 1 GM/D5W 1 GM/50 ML BAG ONE (17:05)
--- NOTE | 2019-07-01 17:44 | EKG ---
Test Reason : Blood Pressure : / mmHG Vent. Rate : 093 BPM Atrial Rate : 441 BPM P-R Int : 000 ms QRS Dur : 118 ms QT Int : 396 ms P-R-T Axes : 000 -61 064 degrees QTc Int : 492 ms atrial fibrilation LEFT AXIS DEVIATION LOW VOLTAGE QRS INFERIOR INFARCT (CITED ON OR BEFORE 23-JUL-2006) CANNOT RULE OUT ANTERIOR INFARCT (CITED ON OR BEFORE 12-DEC-2018) ABNORMAL ECG WHEN COMPARED WITH ECG OF 20-JUN-2019 16:25, CURRENT UNDETERMINED RHYTHM PRECLUDES RHYTHM COMPARISON, NEEDS REVIEW QUESTIONABLE CHANGE IN INITIAL FORCES OF SEPTAL LEADS NONSPECIFIC T WAVE ABNORMALITY, IMPROVED IN ANTERIOR LEADS Confirmed by MIKE GRANT, RUDI ([id number]) on 07/01/2019 5:44:18 PM Referred By: Confirmed By:RUDI MCKEON MD
== END 2019-07-01 20:28 | disposition home or self-care (01) ==
LOC: JER 13:42
PROC: 3E033NZ Introduction of Analgesics, Hypnotics, Sedatives into Peripheral Vein, Percutaneous Approach (ICD-10-PCS; principal; 2019-07-01)
PROC: 3E03329 Introduction of Other Anti-infective into Peripheral Vein, Percutaneous Approach (ICD-10-PCS; 2019-07-01)
DX: K59.00 Constipation, unspecified (principal); E03.9 Hypothyroidism, unspecified; E11.9 Type 2 diabetes mellitus without complications; E78.5 Hyperlipidemia, unspecified; I10 Essential (primary) hypertension; Z95.1 Presence of aortocoronary bypass graft
CPT/HCPCS: 36415; 74018-TC-FY; 80053; 80307; 81003; 85025; 87086; 93005; 93010; 96365; 96375; 99285-25; J0131; J7030

== ENCOUNTER 2019-08-09 07:36 | Emergency (ER) | payer OTHER, BC ==
--- NOTE | 2019-08-09 07:46 | PDOC ---
History of Present Illness - General Chief Complaint: Urinary Problem Stated Complaint: URINARY RETENTION Time Seen by Provider: 08/09/19 07:46 Past History - Past Medical History Allergies/Adverse Reactions: Allergies Allergy/AdvReac Type Severity Reaction Status Date / Time No Known Drug Allergies Allergy Verified 08/09/19 07:51 strawberry Allergy Hives Verified 08/09/19 07:51 Home Medications: Ambulatory Orders Alprazolam [Xanax] 1 mg PO HS 02/18/19 Atorvastatin Ca [Lipitor] 80 mg PO HS 02/18/19 Carvedilol [Coreg -] 3.125 mg PO TID 02/18/19 Dicloxacillin Sodium 500 mg PO Q8H 02/18/19 Docusate Sodium [Colace] 100 mg PO BID 02/18/19 Escitalopram Oxalate [Lexapro -] 10 mg PO DAILY 02/18/19 Levetiracetam [Keppra] 750 mg PO BID 02/18/19 Tamsulosin HCl [Flomax] 0.8 mg PO HS 02/18/19 Aspirin [ASA -] 81 mg PO DAILY 05/05/19 Apixaban [Eliquis -] 5 mg PO BID #60 tablet 05/12/19 Enalapril Maleate [Vasotec -] 2.5 mg PO DAILY #30 tablet 05/12/19 Furosemide [Lasix -] 40 mg PO DAILY #30 tablet 05/12/19 Levothyroxine [Synthroid -] 175 mcg PO DAILY@0700 #30 tablet 05/12/19 Spironolactone [Aldactone -] 25 mg PO DAILY #30 tablet 05/12/19 Cyclobenzaprine HCl [Flexeril -] 10 mg PO BID PRN #6 tablet 06/20/19 Cephalexin Monohydrate [Keflex -] 500 mg PO BID #6 capsule 07/01/19 Cephalexin [Keflex] 500 mg PO BID #14 capsule 08/09/19 Anemia: Yes Cancer: Yes (brain tumor) Cardiac Disorders: Yes (bypass sx) CVA: Yes (QUESTIONABLE cva IN PAST) COPD: No CHF: Yes Diabetes: Yes Disorders: Yes (bph) HTN: Yes Hypercholesterolemia: Yes Seizures: Yes Thyroid Disease: Yes (HYPO) - Surgical History Appendectomy: Yes Cardiac Surgery: Yes (CABG) Neurologic Surgery: Yes (MENINGIOMA REMOVED) - Immunization History Immunization Up to Date: (UNKNOWN) - Psycho Social/Smoking Cessation Hx Smoking History: Never smoked Have you smoked in the past 12 months: No If you are a former smoker, when did you quit?: 40YRS AGO Hx Alcohol Use: No Drug/Substance Use Hx: No Substance Use Type: Alcohol Hx Substance Use Treatment: No ED Treatment Course - LABORATORY CBC & Chemistry Diagram: 08/09/19 08:10 08/09/19 08:10 Medical Decision Making - Medical Decision Making HPI: 78 year old male with a PMH of CAD s/p 4V CABG, PAF, HTN, HLD, systolic CHF, hypothyroidism, DMII, Chronic osteomyelitis, and parietal meningioma (s/p resection 2001) who presents to the ED with 5 days of constipation and about 24 hours of urinary retention. Patient has had this problem once before; he presented to this ED on 07/01/19 for the urinary retention and was treated for UTI. Did not follow up with urology. No hematuria or dysuria when he could urinate yesterday. Denies fevers, chills, chest pain, or shortness of breath. PCP: Dr. Flaherty ROS: Constitutional: no fever, no chills HEENT: no throat pain, no dysphagia Cardiovascular: no chest pain, no palpitations Respiratory: no cough, no shortness of breath Gastrointestinal: +abdominal pain, no nausea Genitourinary: +urinary retention, no hematuria Musculoskeletal: no myalgia, no arthralgia Skin: no rash, no itching Neurologic: no headache, no weakness PE: General: Awake, alert, and fully oriented, in no acute distress Head: No signs of trauma Eyes: EOMI, sclera anicteric ENT: Moist mucus membranes Neck: Normal ROM, supple Lungs: Lungs clear, Normal breath sounds Cardio: Regular rhythm, S1 and S2 present Abdomen: Distended. Tender to palpation in suprapubic area. No CVA tenderness. Extremities: Normal range of motion, Distal pulses present SKIN: Warm, Dry, normal turgor Neurologic: Cranial nerves II through XII grossly intact. Normal speech ED Course/MDM: DDX including but not limited to UTI/pyelonephritis, nephrolithiasis, BPH Labs Alvarez 08/09/19 07:46 CBC WBC 8.6 K/mm3 (4.0-10.0) 08/09/19 08:10 RBC 3.60 M/mm3 (4.00-5.60) L 08/09/19 08:10 Hgb 11.8 GM/dL (11.7-16.9) 08/09/19 08:10 Hct 33.6 % (35.4-49) L 08/09/19 08:10 MCV 93.5 fl (80-96) 08/09/19 08:10 MCH 32.9 pg (25.7-33.7) 08/09/19 08:10 MCHC 35.1 g/dl (32.0-35.9) 08/09/19 08:10 RDW 14.5 % (11.9-15.9) 08/09/19 08:10 Plt Count 233 K/MM3 (134-434) D 08/09/19 08:10 MPV 8.3 fl (7.5-11.1) 08/09/19 08:10 Absolute Neuts (auto) 6.8 K/mm3 (1.5-8.0) 08/09/19 08:10 Neutrophils % 79.4 % (42.8-82.8) 08/09/19 08:10 Lymphocytes % 10.8 % (8-40) 08/09/19 08:10 Monocytes % 7.4 % (3.8-10.2) 08/09/19 08:10 Eosinophils % 1.6 % (0-4.5) 08/09/19 08:10 Basophils % 0.8 % (0-2.0) 08/09/19 08:10 Nucleated RBC % 0 % (0-0) 08/09/19 08:10 No leukocytosis CMP Sodium 136 mmol/L (136-145) 08/09/19 08:10 Potassium 3.8 mmol/L (3.5-5.1) 08/09/19 08:10 Chloride 97 mmol/L (98-107) L 08/09/19 08:10 Carbon Dioxide 34 mmol/L (21-32) H 08/09/19 08:10 Anion Gap 5 MMOL/L (8-16) L 08/09/19 08:10 BUN 24.8 mg/dL (7-18) H 08/09/19 08:10 Creatinine 0.8 mg/dL (0.55-1.3) 08/09/19 08:10 Est GFR (CKD-EPI)AfAm 99.17 08/09/19 08:10 Est GFR (CKD-EPI)NonAf 85.56 08/09/19 08:10 Random Glucose 142 mg/dL (74-106) H 08/09/19 08:10 Calcium 8.4 mg/dL (8.5-10.1) L 08/09/19 08:10 Total Bilirubin 0.6 mg/dL (0.2-1) 08/09/19 08:10 AST 54 U/L (15-37) H 08/09/19 08:10 ALT 77 U/L (13-61) H 08/09/19 08:10 Alkaline Phosphatase 149 U/L (45-117) H 08/09/19 08:10 Total Protein 6.1 g/dl (6.4-8.2) L 08/09/19 08:10 Albumin 2.6 g/dl (3.4-5.0) L 08/09/19 08:10 Electrolytes unremarkable Cr normal BUN at baseline UA with infection Previous cultures sensitive to rocephin Rocephin ordered 08/09/19 09:54 Patient sleeping in stretcher Feeling better Catheter drained total of 1350cc 08/09/19 10:10 Urinary retention likely due to enlarged prostate and UTI Keflex sent to pharmacy Instructed him to follow up with urologist for catheter removal Discharged with return precautions 08/09/19 11:49 Discharge - Discharge Information Problems reviewed: Yes Clinical Impression/Diagnosis: Acute urinary retention UTI (urinary tract infection) Qualifiers: Urinary tract infection type: site unspecified Hematuria presence: with hematuria Qualified Code(s): N39.0 - Urinary tract infection, site not specified Condition: Improved Disposition: HOME - Additional Discharge Information Prescriptions: Cephalexin [Keflex] 500 mg PO BID #14 capsule - Follow up/Referral Referrals: Ramón Duvall MD [Staff Physician] - - Patient Discharge Instructions Patient Printed Discharge Instructions: How to Care for Your Alvarez Catheter -- Male, DI for Urinary Retention in Men Additional Instructions: You came into the emergency department for not being able to urine. Our workup showed signs of infection for which we gave you antibiotics. Antibiotics prescription sent to your pharmacy. Take as instructed. We have referred you to a urologist. Call today and make an appointment. Your workup is not complete until you do so. You can take [id number] tylenol or motrin for pain. Follow the instructions on the medication bottle. Immediate medical attention is required if you have: high fevers, chills, persistent vomiting, stop urinating, or any new or concerning symptoms. If you think you are having an emergency, call for emergency medical services or present to the emergency department right away - Post Discharge Activity
[2019-08-09 07:51] VITALS: TEMP 97.6; BMI 22.3
--- NOTE | 2019-08-09 08:27 | PDOC ---
Attending Attestation - Resident Resident Name: Kathrine Blanco - ED Attending Attestation I have performed the following: I have examined & evaluated the patient, The case was reviewed & discussed with the resident, I agree w/resident's findings & plan, Exceptions are as noted - HPI HPI: 08/09/19 08:54 78yM hx of cad sp CABG, pAF, htn, hl, chf, hypohyroidism, dm2, meningioma s/p resectin in 2001, persents t the ED for evluation of 5 days of constipaion and 1 day of urinary retention. Per aide, the pt has been unable to urinate since last night. No assocated fever, vomiting. s PCP: Dr. Flaherty - Physicial Exam PE: 08/09/19 09:48 GENERAL: The patient is awake, alert, Nontoxic - in no acute distress. HEAD: Normocephalic, atraumatic LUNGS: Breath sounds equal, clear to auscultation bilaterally. No wheezes, no rhonchi, no rales. HEART: Regular rate and rhythm, normal S1 and S2 without murmur, rub or gallop. ABDOMEN: Soft, mild suprapubic tenderness - Medical Decision Making 08/09/19 09:48 ua suggestive of UTI madrid was placed with drainage of 700ml+ of uine with improvment of his symptoms suspect uti induced rtention will treat with abx will reassess
[2019-08-09 09:04] LABS: ALBUMIN 2.6 g/dl (3.4-5.0); BILIRUBIN,TOTAL 0.6 mg/dL (0.2-1); BLOOD UREA NITROGEN 24.8 mg/dL (7-18); CALCIUM 8.4 mg/dL (8.5-10.1); CREATININE 0.8 mg/dL (0.55-1.3); POTASSIUM 3.8 mmol/L (3.5-5.1); TOT PROT 6.1 g/dl (6.4-8.2)
[2019-08-09 09:06] LABS: BASO % 0.8 % (0-2.0); EOS % 1.6 % (0-4.5); HEMATOCRIT 33.6 % (35.4-49); HEMOGLOBIN 11.8 GM/dL (11.7-16.9); LYMPH % 10.8 % (8-40); MCH 32.9 pg (25.7-33.7); MCHC 35.1 g/dl (32.0-35.9); MEAN CELL VOLUME 93.5 fl (80-96); MEAN PLT VOLUME 8.3 fl (7.5-11.1); MONO % 7.4 % (3.8-10.2); NEUT % 79.4 % (42.8-82.8); PLATELET COUNT 233 K/MM3 (134-434); RDW 14.5 % (11.9-15.9); WHITE BLOOD COUNT 8.6 K/mm3 (4.0-10.0)
[2019-08-09 09:18] LABS: EPI CELLS 0.3 /HPF (0-5/HPF); HYALINE CASTS 5 /lpf (0-8); URINE BACTERIA 6206.3 /hpf (NEGATIVE); URINE RBC 6 /hpf (0-4); URINE WBC 125 /hpf (0-5)
[2019-08-09 09:25] LABS: URINE APPEARANCE Clear; URINE BILIRUBIN Negative (NEGATIVE); URINE COLOR Yellow; URINE GLUCOSE (UA) Negative (NEGATIVE)
[2019-08-09 09:26] LABS: URINE KETONE Negative (NEGATIVE); URINE PROTEIN Negative (NEGATIVE); URINE UROBILINOGEN 0.2 mg/dL (0.2-1.0)
[2019-08-09 09:27] LABS: URINE LEUK ESTERASE 2+ (NEGATIVE); URINE NITRITE Negative (NEGATIVE)
[2019-08-09] MEDS ORDERED: CEFTRIAXONE 1,000 MG in DEXTROSE 5%-WATER - 50 ML IVPB ONE (09:40)
[2019-08-09] MEDS ORDERED: CEFTRIAXONE 1 GM/50 ML BAG ONE (10:13)
[2019-08-09 10:20] VITALS: BP 98/50; PULSE 83
== END 2019-08-09 12:00 | disposition home or self-care (01) ==
LOC: JER 07:36
PROC: 3E03329 Introduction of Other Anti-infective into Peripheral Vein, Percutaneous Approach (ICD-10-PCS; principal; 2019-08-09)
PROC: 0T9B70Z Drainage of Bladder with Drainage Device, Via Natural or Artificial Opening (ICD-10-PCS; 2019-08-09)
DX: N39.0 Urinary tract infection, site not specified (principal); N40.1 Benign prostatic hyperplasia with lower urinary tract symptoms; R33.8 Other retention of urine; I25.10 Atherosclerotic heart disease of native coronary artery without angina pectoris; I11.0 Hypertensive heart disease with heart failure; I50.9 Heart failure, unspecified; Z95.1 Presence of aortocoronary bypass graft; I48.0 Paroxysmal atrial fibrillation; Z79.01 Long term (current) use of anticoagulants; Z87.891 Personal history of nicotine dependence; E11.9 Type 2 diabetes mellitus without complications; Z79.84 Long term (current) use of oral hypoglycemic drugs; E78.00 Pure hypercholesterolemia, unspecified; E03.9 Hypothyroidism, unspecified; G40.909 Epilepsy, unspecified, not intractable, without status epilepticus; D64.9 Anemia, unspecified; Z85.841 Personal history of malignant neoplasm of brain; Z91.018 Allergy to other foods
CPT/HCPCS: 36415; 51702; 80053; 81003; 85025; 87086; 87186; 96365; 99285-25

== ENCOUNTER 2019-08-26 06:56 | Inpatient (IN) | payer OTHER, BC ==
[2019-08-26] MEDS ORDERED: SODIUM CHLORIDE 500 ML IV STA ×2 (07:33→14:06)
[2019-08-26 08:52] LABS: EPI CELLS 0.1 /HPF (0-5/HPF); HYALINE CASTS 0 /lpf (0-8); PH,URINE 5.5 (5.0-8.0); URINE APPEARANCE TURBID; URINE BACTERIA 6734.1 /hpf (NEGATIVE); URINE BILIRUBIN NEGATIVE (NEGATIVE); URINE COLOR YELLOW; URINE GLUCOSE (UA) NEGATIVE (NEGATIVE); URINE KETONE NEGATIVE (NEGATIVE); URINE LEUK ESTERASE 3+ (NEGATIVE); URINE NITRITE NEGATIVE (NEGATIVE); URINE PROTEIN NEGATIVE (NEGATIVE); URINE RBC 3 /hpf (0-4); URINE WBC 375 /hpf (0-5)
[2019-08-26 08:56] LABS: BASO % 1.3 % (0-2.0); EOS % 3.7 % (0-4.5); HEMATOCRIT 32.6 % (35.4-49); LYMPH % 11.4 % (8-40); MCH 32.8 pg (25.7-33.7); MCHC 33.8 g/dl (32.0-35.9); MEAN CELL VOLUME 96.9 fl (80-96); MONO % 8.6 % (3.8-10.2); PLATELET COUNT 169 K/MM3 (134-434); RBC 3.36 M/mm3 (4.00-5.60); RDW 15.9 % (11.9-15.9); WHITE BLOOD COUNT 7.2 K/mm3 (4.0-10.0)
[2019-08-26 09:22] LABS: BLOOD UREA NITROGEN 23.9 mg/dL (7-18); CALCIUM 8.6 mg/dL (8.5-10.1); CREATININE 0.9 mg/dL (0.55-1.3); POTASSIUM 3.7 mmol/L (3.5-5.1)
[2019-08-26] MEDS ORDERED: ERTAPENEM SODIUM 0.5 GM in SODIUM CHLORIDE 50 ML IVPB ONE (10:32)
--- NOTE | 2019-08-26 11:07 | HP ---
Admitting History and Physical - Primary Care Physician PCP: Mika Flaherty - Admission Chief Complaint: urinary retention History of Present Illness: ER HISTORY - History of Present Illness Initial Comments: 08/26/19 07:52 The patient is a 78 year old male with PMH of cad sp CABG, pAF, htn, hl, chf, hypohyroidism, dm2, meningioma s/p resectin in 2001, who presents to the emergency department for evaluation of urinary retention for about 12 hours with associated suprapubic abdominal pain, constant, waxing and waning in severity with no alleviating factors. He notes history of need for catheterization for retention. Pt examined by me in the ER spoke with ER attending Pt lives at home-- has 24 hr aide Bedbound was here in the ER on 08/09 with urinary retention-- madrid placed and dc from ER- - madrid removed by PMD- Dr Flaherty a week after. 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: CVA (questionable CVA in past), Peripheral Neuropathy, Other ( meningioma) Cardiovascular: Yes: AFIB, CAD (s/p CABG), CHF, Deep Vein Thrombosis, HTN, Hyperlipdemia Pulmonary: Yes: Pulmonary Embolus (01/20) Renal/: Yes: BPH Heme/Onc: Yes: Anemia Psych: Yes: Anxiety, Depression Musculoskeletal: Yes: Chronic low back pain, Osteoarthritis (to left knee) Endocrine: Yes: Diabetes Mellitus, Hypothyroidism - Past Surgical History Past Surgical History: Yes: Appendectomy, CABG ( 4) - Smoking History Smoking history: Never smoked Have you smoked in the past 12 months: No If you are a former smoker, when did you quit?: 40YRS AGO - Alcohol/Substance Use Hx Alcohol Use: Yes History of Substance Use: reports: None - Social History ADL: Support Services ([employer]) History of Recent Travel: No Home Medications - Allergies Allergies/Adverse Reactions: Allergies Allergy/AdvReac Type Severity Reaction Status Date / Time No Known Drug Allergies Allergy Verified 08/26/19 07:04 strawberry Allergy Hives Verified 08/26/19 07:04 - Home Medications Home Medications: Ambulatory Orders Alprazolam [Xanax] 1 mg PO HS 02/18/19 Atorvastatin Ca [Lipitor] 80 mg PO HS 02/18/19 Carvedilol [Coreg -] 3.125 mg PO BID 02/18/19 Dicloxacillin Sodium 500 mg PO Q8H 02/18/19 Docusate Sodium [Colace] 100 mg PO BID 02/18/19 Escitalopram Oxalate [Lexapro -] 10 mg PO DAILY 02/18/19 Levetiracetam [Keppra] 750 mg PO BID 02/18/19 Tamsulosin HCl [Flomax] 0.4 mg PO HS 02/18/19 Aspirin [ASA -] 81 mg PO DAILY 05/05/19 Apixaban [Eliquis -] 5 mg PO BID #60 tablet 05/12/19 Enalapril Maleate [Vasotec -] 2.5 mg PO DAILY #30 tablet 05/12/19 Furosemide [Lasix -] 40 mg PO DAILY #30 tablet 05/12/19 Levothyroxine [Synthroid -] 175 mcg PO DAILY@0700 #30 tablet 05/12/19 Spironolactone [Aldactone -] 25 mg PO DAILY #30 tablet 05/12/19 Cyclobenzaprine HCl [Flexeril -] 10 mg PO BID PRN #6 tablet 06/20/19 Gabapentin 100 mg PO BID 08/26/19 Oxycodone HCl/Acetaminophen [Percocet 5-325 mg Tablet] 1 tab PO PRN PRN Sennosides [Senna] 8.6 mg PO DAILY 08/26/19 traMADol HCL [Ultram] 50 mg PO Q6H 08/26/19 Physical Examination Vital Signs: Vital Signs Temperature 98.8 F 08/26/19 07:02 Pulse Rate 82 08/26/19 07:02 Respiratory Rate 20 08/26/19 07:02 Blood Pressure 128/74 08/26/19 07:02 O2 Sat by Pulse Oximetry (%) 97 08/26/19 07:02 Constitutional: Yes: No Distress, Calm Cardiovascular: Yes: Pulse Irregular Respiratory: Yes: CTA Bilaterally Gastrointestinal: Yes: Normal Bowel Sounds, Soft Edema: LLE: Trace, RLE: Trace Neurological: Yes: Alert, Other (contracted right arm) Labs: CBC, BMP 08/26/19 08:45 08/26/19 08:45 Imaging - Results Chest X-ray: Image Reviewed (clear) EKG: Image Reviewed (Afib) Problem List - Problems (1) Acute urinary retention Code(s): R33.8 - OTHER RETENTION OF URINE (2) UTI (urinary tract infection) Code(s): N39.0 - URINARY TRACT INFECTION, SITE NOT SPECIFIED Qualifiers: Urinary tract infection type: site unspecified Hematuria presence: with hematuria Qualified Code(s): N39.0 - Urinary tract infection, site not specified (3) Atrial fibrillation Code(s): I48.91 - UNSPECIFIED ATRIAL FIBRILLATION Qualifiers: Atrial fibrillation type: persistent (4) BPH (benign prostatic hyperplasia) Code(s): N40.0 - BENIGN PROSTATIC HYPERPLASIA WITHOUT LOWER URINRY TRACT SYMP (5) CAD (coronary artery disease) Code(s): I25.10 - ATHSCL HEART DISEASE OF [place]' CORONARY ARTERY W/O ANG PCTRS Qualifiers: Coronary Disease-Associated Artery/Lesion type: bypass graft [place] vs. transplanted heart: [place] heart Associated angina: angina presence unspecified Qualified Code(s): I25.810 - Atherosclerosis of coronary artery bypass graft(s) without angina pectoris Assessment/Plan PLAN [facility] evaluation check sono urinary bladder ID eval for UTI check urine cultures continue with meds
--- NOTE | 2019-08-26 11:10 | PDOC ---
Documentation entered by Queenie Kelly SCRIBE, acting as scribe for Delio Marcelino MD. Delio Marcelino MD: This documentation has been prepared by the Robin bill Sammi, SCRIBE, under my direction and personally reviewed by me in its entirety. I confirm that the documentation accurately reflects all work, treatment, procedures, and medical decision making performed by me. History of Present Illness - General Chief Complaint: Urinary Problem Stated Complaint: URINARY PROBLEM Time Seen by Provider: 08/26/19 07:27 - History of Present Illness Initial Comments: 08/26/19 07:52 The patient is a 78 year old male with PMH of cad sp CABG, pAF, htn, hl, chf, hypohyroidism, dm2, meningioma s/p resectin in 2001, who presents to the emergency department for evaluation of urinary retention for about 12 hours with associated suprapubic abdominal pain, constant, waxing and waning in severity with no alleviating factors. He notes history of need for catheterization for retention. Past History - Past Medical History Allergies/Adverse Reactions: Allergies Allergy/AdvReac Type Severity Reaction Status Date / Time No Known Drug Allergies Allergy Verified 08/26/19 07:04 strawberry Allergy Hives Verified 08/26/19 07:04 Home Medications: Ambulatory Orders Alprazolam [Xanax] 1 mg PO HS 02/18/19 Atorvastatin Ca [Lipitor] 80 mg PO HS 02/18/19 Carvedilol [Coreg -] 3.125 mg PO TID 02/18/19 Dicloxacillin Sodium 500 mg PO Q8H 02/18/19 Docusate Sodium [Colace] 100 mg PO BID 02/18/19 Escitalopram Oxalate [Lexapro -] 10 mg PO DAILY 02/18/19 Levetiracetam [Keppra] 750 mg PO BID 02/18/19 Tamsulosin HCl [Flomax] 0.8 mg PO HS 02/18/19 Aspirin [ASA -] 81 mg PO DAILY 05/05/19 Apixaban [Eliquis -] 5 mg PO BID #60 tablet 05/12/19 Enalapril Maleate [Vasotec -] 2.5 mg PO DAILY #30 tablet 05/12/19 Furosemide [Lasix -] 40 mg PO DAILY #30 tablet 05/12/19 Levothyroxine [Synthroid -] 175 mcg PO DAILY@0700 #30 tablet 05/12/19 Spironolactone [Aldactone -] 25 mg PO DAILY #30 tablet 05/12/19 Cyclobenzaprine HCl [Flexeril -] 10 mg PO BID PRN #6 tablet 06/20/19 Cephalexin Monohydrate [Keflex -] 500 mg PO BID #6 capsule 07/01/19 Nitrofurantoin Monohyd/M-Cryst [Macrobid -] 100 mg PO BID #14 capsule 08/13/19 Anemia: Yes Cancer: Yes (brain tumor) Cardiac Disorders: Yes (bypass sx) CVA: Yes (QUESTIONABLE cva IN PAST) COPD: No CHF: Yes Diabetes: Yes Disorders: Yes (bph) HTN: Yes Hypercholesterolemia: Yes Seizures: Yes Thyroid Disease: Yes (HYPO) - Surgical History Appendectomy: Yes Cardiac Surgery: Yes (CABG) Neurologic Surgery: Yes (MENINGIOMA REMOVED) - Immunization History Immunization Up to Date: (UNKNOWN) - Psycho Social/Smoking Cessation Hx Smoking History: Never smoked Have you smoked in the past 12 months: No If you are a former smoker, when did you quit?: 40YRS AGO Hx Alcohol Use: Yes Drug/Substance Use Hx: No Substance Use Type: Alcohol Hx Substance Use Treatment: No Review of Systems - Review of Systems Comments:: 08/26/19 07:52 CONSTITUTIONAL: No fever, no chills, no fatigue EYES: No visual changes ENT: No ear pain, no sore throat CARDIOVASCULAR: No chest pain, no palpitations RESPIRATORY: No cough, no SOB GI: +suprapubic abdominal pain. no nausea, no vomiting, no constipation, no diarrhea GENITOURINARY: +urinary retention. No frequency, no hematuria MUSKULOSKELETAL: No backpain, no joint pain, no myalgias SKIN: No rash NEURO: No headache *Physical Exam - Vital Signs Last Vital Signs Temp Pulse Resp BP Pulse Ox 98.8 F 82 20 128/74 97 08/26/19 07:02 08/26/19 07:02 08/26/19 07:02 08/26/19 07:02 08/26/19 07:02 - Physical Exam Comments: 08/26/19 13:37 EXAMINATION CONSTITUTIONAL: awake, frail appearing, in mild distress HEAD: Normocephalic; atraumatic EYES: EOMI; conj-pink ENMT: External appears normal; mm-dry NECK: Supple; non-tender; no jvd CARD: irregular; s1s2, 2/6 pedro RESP: Normal chest excursion with respiration; breath sounds clear and equal bilaterally; no wheezes, rhonchi, or rales ABD: Soft, +distended; + ttp to the suprapubic area c/w distended bladder; no palpable organomegaly, no palpable hernias EXT: rue held in flexion contraction (old); LLE:RLE: + mottled, discolored, cool to touch, with significantly decreased distal pulses SKIN: Warm, dry, no petechiae NEURO: awake, alert, follows commands ED Treatment Course - LABORATORY CBC & Chemistry Diagram: 08/26/19 08:45 08/26/19 08:45 - ADDITIONAL ORDERS Additional order review: Laboratory Results 08/26/19 08/26/19 08:45 08:35 Sodium 140 Potassium 3.7 Chloride 101 Carbon Dioxide 32 Anion Gap 6 L BUN 23.9 H Creatinine 0.9 Est GFR (CKD-EPI)AfAm 94.48 Est GFR (CKD-EPI)NonAf 81.52 Random Glucose 105 Calcium 8.6 Urine Color Yellow Urine Appearance Turbid Urine pH 5.5 Ur Specific [place] 1.013 Urine Protein Negative Urine Glucose (UA) Negative Urine Ketones Negative Urine Blood Trace Urine Nitrite Negative Urine Bilirubin Negative Urine Urobilinogen 1.0 Ur Leukocyte Esterase 3+ H Urine WBC (Auto) 375 Urine RBC (Auto) 3 Urine Casts (Auto) 0 U Epithel Cells (Auto) 0.1 Urine Bacteria (Auto) 6734.1 08/26/19 08:45 RBC 3.36 L MCV 96.9 H MCHC 33.8 RDW 15.9 MPV 8.0 Neutrophils % 75.0 Lymphocytes % 11.4 Monocytes % 8.6 Eosinophils % 3.7 D Basophils % 1.3 - RADIOLOGY Radiology Studies Ordered: Category Date Time Status CHEST X-RAY PORTABLE* [RAD] Stat Radiology 08/26/19 11:09 Ordered - Medications Given in the ED: ED Medications Discontinued Medications Generic Name Dose Route Start Last Admin Trade Name Freq PRN Reason Stop Dose Admin Sodium Chloride 500 mls @ 500 mls/hr 08/26/19 07:33 08/26/19 08:47 Normal Saline - IV 08/26/19 08:32 500 mls/hr ASDIR STA Administration Medical Decision Making - Medical Decision Making 08/26/19 13:42 Patient is a frail-appearing 78-year-old male with multiple comorbidities who presents with acute urinary retention. Alvarez catheter placed, and approximately 800 mL of sediment filled urine is obtained. Urinalysis reveals more than 375 WBCs per high-power field. Review of patient's record indicates previous urine culture positive for E. coli which is ESBL producing. ID consulted and recommends admission for IV antibiotics. Will obtain repeat urine culture and will administer ertapenem. Will admit. Patient is afebrile and hemodynamically stable at this time. BUN and creatinine noted to be at baseline. Will judiciously hydrate. Discharge - Discharge Information Problems reviewed: Yes Clinical Impression/Diagnosis: Acute urinary retention UTI (urinary tract infection) Qualifiers: Urinary tract infection type: site unspecified Hematuria presence: with hematuria Qualified Code(s): N39.0 - Urinary tract infection, site not specified Condition: Fair - Admission Yes - Follow up/Referral - Patient Discharge Instructions - Post Discharge Activity
[2019-08-26] MEDS ORDERED: levETIRAcetam 250 MG TABLET (FP) PO SCH (11:15)
[2019-08-26] MEDS ORDERED: ENALAPRIL MALEATE 5 MG TABLET (FP) ONE (12:42)
[2019-08-26] MEDS ORDERED: APIXABAN 5 MG TABLET ONE (12:42)
[2019-08-26] MEDS ORDERED: SPIRONOLACTONE 25 MG TABLET (FP) ONE (12:43)
[2019-08-26] MEDS ORDERED: ESCITALOPRAM OXALATE 10 MG TABLET (FP) ONE (12:43)
--- NOTE | 2019-08-26 12:51 | CON.ID ---
Consult Consult Specialty:: infectious diseases Referred by:: Ange Branch Reason for Consultation:: uti,weakness - History of Present Illness Chief Complaint: retention of urine,dysuria History of Present Illness: 78 year old male with PMH of cad sp CABG, pAF, htn, hl, chf, hypohyroidism, dm2 , meningioma s/p resectin in 2001, who presents to the emergency department for evaluation of urinary retention for about 12 hours with associated suprapubic abdominal pain, constant, waxing and waning in severity with no alleviating factors. He notes history of need for catheterization for retention. 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: CVA (questionable CVA in past), Peripheral Neuropathy, Other ( meningioma) Cardio/Vascular: Yes: AFIB, CAD (s/p CABG), CHF, Deep Vein Thrombosis, HTN, Hyperlipdemia Pulmonary: Yes: Pulmonary Embolus (01/20) Renal/: Yes: BPH Psych: Yes: Anxiety, Depression Musculoskeletal: Yes: Chronic low back pain, Osteoarthritis (to left knee) Endocrine: Yes: Diabetes Mellitus, Hypothyroidism - Past Surgical History Past Surgical History: Yes: Appendectomy, CABG ( 4) - Alcohol/Substance Use Hx Alcohol Use: Yes History of Substance Use: reports: None - Smoking History Smoking history: Never smoked Have you smoked in the past 12 months: No If you are a former smoker, when did you quit?: 40YRS AGO - Social History Usual Living Arrangement: Other ([facility]) ADL: Support Services ([facility]) History of Recent Travel: No Home Medications - Allergies Allergies/Adverse Reactions: Allergies Allergy/AdvReac Type Severity Reaction Status Date / Time No Known Drug Allergies Allergy Verified 08/26/19 07:04 strawberry Allergy Hives Verified 08/26/19 07:04 - Home Medications Home Medications: Ambulatory Orders Alprazolam [Xanax] 1 mg PO HS 02/18/19 Atorvastatin Ca [Lipitor] 80 mg PO HS 02/18/19 Carvedilol [Coreg -] 3.125 mg PO BID 02/18/19 Dicloxacillin Sodium 500 mg PO Q8H 02/18/19 Docusate Sodium [Colace] 100 mg PO BID 02/18/19 Escitalopram Oxalate [Lexapro -] 10 mg PO DAILY 02/18/19 Levetiracetam [Keppra] 750 mg PO BID 02/18/19 Tamsulosin HCl [Flomax] 0.4 mg PO HS 02/18/19 Aspirin [ASA -] 81 mg PO DAILY 05/05/19 Apixaban [Eliquis -] 5 mg PO BID #60 tablet 05/12/19 Enalapril Maleate [Vasotec -] 2.5 mg PO DAILY #30 tablet 05/12/19 Furosemide [Lasix -] 40 mg PO DAILY #30 tablet 05/12/19 Levothyroxine [Synthroid -] 175 mcg PO DAILY@0700 #30 tablet 05/12/19 Spironolactone [Aldactone -] 25 mg PO DAILY #30 tablet 05/12/19 Cyclobenzaprine HCl [Flexeril -] 10 mg PO BID PRN #6 tablet 06/20/19 Gabapentin 100 mg PO BID 08/26/19 Oxycodone HCl/Acetaminophen [Percocet 5-325 mg Tablet] 1 tab PO PRN PRN Sennosides [Senna] 8.6 mg PO DAILY 08/26/19 traMADol HCL [Ultram] 50 mg PO Q6H 08/26/19 Review of Systems - Review of Systems Constitutional: reports: No Symptoms Eyes: reports: No Symptoms HENT: reports: No Symptoms Neck: reports: No Symptoms Cardiovascular: reports: No Symptoms Respiratory: reports: No Symptoms Gastrointestinal: reports: No Symptoms Genitourinary: reports: Other (urinary retention) Musculoskeletal: reports: No Symptoms Integumentary: reports: No Symptoms Neurological: reports: No Symptoms Endocrine: reports: No Symptoms Hematology/Lymphatic: reports: No Symptoms Psychiatric: reports: No Symptoms Physical Exam Vital Signs: Vital Signs Temperature 98.8 F 08/26/19 07:02 Pulse Rate 82 08/26/19 07:02 Respiratory Rate 20 08/26/19 07:02 Blood Pressure 128/74 08/26/19 07:02 O2 Sat by Pulse Oximetry (%) 97 08/26/19 07:02 Constitutional: Yes: Well Nourished, Calm, Mild Distress HENT: Yes: Atraumatic, Normocephalic Neck: Yes: Supple, Trachea Midline Cardiovascular: Yes: Regular Rate and Rhythm Respiratory: Yes: Regular, CTA Bilaterally Gastrointestinal: Yes: Normal Bowel Sounds, Soft Renal/: Yes: Other (suprapubic tenderness) Musculoskeletal: Yes: WNL Extremities: Yes: WNL Neurological: Yes: Alert, Oriented Psychiatric: Yes: Alert, Oriented Labs: CBC, BMP 08/26/19 08:45 08/26/19 08:45 Imaging - Results Chest X-ray: Report Reviewed, Image Reviewed Ultrasound: Report Reviewed, Image Reviewed Assessment/Plan patient coming with urinary retention cloudy dirty urine i agree with the abx given from tomorrow we will start patient on meropenam untill we have all the results
[2019-08-26] MEDS: ESCITALOPRAM OXALATE 10 MG TABLET (FP) PO SCH (12:58)
[2019-08-26] MEDS: SPIRONOLACTONE 25 MG TABLET (FP) PO SCH (12:58)
[2019-08-26] MEDS: APIXABAN 5 MG TABLET PO SCH ×2 (12:58→22:49)
[2019-08-26] MEDS: ENALAPRIL MALEATE 2.5 MG TABLET (FP) PO SCH (12:59)
[2019-08-26] MEDS ORDERED: traMADol HCL 50 MG TABLET ONE (13:38)
[2019-08-26] MEDS ORDERED: traMADol HCL 50 MG TABLET PO ONE (13:51)
[2019-08-26] MEDS ORDERED: levETIRAcetam 250 MG TABLET (FP) PO ONE (21:14)
[2019-08-26] MEDS ORDERED: levETIRAcetam 500 MG TABLET (FP) PO ONE (21:14)
[2019-08-26] MEDS: DOCUSATE SODIUM 100 MG CAPSULE (FP) PO SCH (22:50)
[2019-08-26] MEDS: CARVEDILOL 3.125 MG TABLET (FP) PO SCH (22:50)
[2019-08-26] MEDS: ATORVASTATIN CA 80 MG TABLET (FP) PO SCH (22:50)
[2019-08-26] MEDS: TAMSULOSIN HCL 0.4 MG CAP PO SCH (22:50)
[2019-08-26] MEDS: ALPRAZolam 1 MG TABLET PO SCH (22:51)
[2019-08-27] MEDS ORDERED: LEVOTHYROXINE NA 100 MCG TABLET (FP) ONE (05:55)
[2019-08-27] MEDS ORDERED: LEVOTHYROXINE NA 75 MCG TABLET (FP) ONE (05:56)
[2019-08-27] MEDS: LEVOTHYROXINE 100 MCG, LEVOTHYROXINE 75 MCG PO SCH (06:07)
[2019-08-27] MEDS ORDERED: LEVOTHYROXINE NA 75 MCG TABLET (FP) PO SCH (07:00)
[2019-08-27] MEDS ORDERED: levETIRAcetam 500 MG TABLET (FP) PO ONE ×2 (10:13→23:29)
[2019-08-27] MEDS ORDERED: levETIRAcetam 250 MG TABLET (FP) PO ONE ×2 (10:13→23:29)
[2019-08-27] MEDS ORDERED: PT OWN MED DRAWER 7, Y5N ONE ×2 (10:15→13:42)
[2019-08-27] MEDS: DOCUSATE SODIUM 100 MG CAPSULE (FP) PO SCH ×2 (10:21→23:33)
[2019-08-27] MEDS: FUROSEMIDE 40 MG TABLET (FP) PO SCH (10:21)
[2019-08-27] MEDS: ASPIRIN 81 MG CHEWABLE TABLETS PO SCH (10:21)
[2019-08-27] MEDS: ENALAPRIL MALEATE 2.5 MG TABLET (FP) PO SCH (10:22)
[2019-08-27] MEDS: APIXABAN 5 MG TABLET PO SCH ×2 (10:22→23:34)
[2019-08-27] MEDS: SPIRONOLACTONE 25 MG TABLET (FP) PO SCH (10:22)
[2019-08-27] MEDS: ESCITALOPRAM OXALATE 10 MG TABLET (FP) PO SCH (10:22)
[2019-08-27] MEDS ORDERED: MEROPENEM 1 GM VIAL (RESTRICTED TO ID) IVPB ONE ×2 (10:31→16:49)
[2019-08-27] MEDS ORDERED: DEXTROSE 5%-WATER 100 ML IVPB ONE ×2 (10:31→16:50)
[2019-08-27] MEDS: CARVEDILOL 3.125 MG TABLET (FP) PO SCH ×2 (10:54→23:39)
[2019-08-27] MEDS: MEROPENEM 1 GM in DEXTROSE 5%-WATER 100 ML IVPB SCH ×2 (10:54→17:17)
--- NOTE | 2019-08-27 11:05 | PN ---
Progress Note (short form) - Note Progress Note: No distress Vital Signs - 24 hr 08/26/19 08/26/19 08/26/19 13:00 16:02 18:00 Temperature 98.0 F 98.2 F Pulse Rate Pulse Rate [ 81 70 76 Left Radial] Respiratory 16 17 17 Rate Blood Pressure Blood Pressure 99/48 L 84/45 L 97/68 [Left Arm] O2 Sat by Pulse 97 99 98 Oximetry (%) 08/27/19 08/27/19 00:43 06:00 Temperature 98.4 F 98.1 F Pulse Rate 82 86 Pulse Rate [ Left Radial] Respiratory 20 20 Rate Blood Pressure 89/62 L 92/64 Blood Pressure [Left Arm] O2 Sat by Pulse Oximetry (%) Current Medications Generic Name Dose Route Start Last Admin Trade Name Freq PRN Reason Stop Dose Admin Alprazolam 1 mg 08/26/19 22:00 08/26/19 22:51 Xanax PO 1 mg HS EUGENE Administration Apixaban 5 mg 08/26/19 11:15 08/27/19 10:22 Eliquis - PO 5 mg BID EUGENE Administration Aspirin 81 mg 08/27/19 10:00 08/27/19 10:21 Asa - PO 81 mg DAILY EUGENE Administration Atorvastatin Calcium 80 mg 08/26/19 22:00 08/26/19 22:50 Lipitor - PO 80 mg HS EUGENE Administration Carvedilol 3.125 mg 08/26/19 22:00 08/27/19 10:54 Coreg - PO 3.125 mg BID EUGENE Administration Cyclobenzaprine HCl 10 mg 08/26/19 11:04 Flexeril - PO BID PRN PAIN Docusate Sodium 100 mg 08/26/19 22:00 08/27/19 10:21 Colace - PO 100 mg BID EUGENE Administration Enalapril Maleate 2.5 mg 08/26/19 11:15 08/27/19 10:22 Vasotec - PO 2.5 mg DAILY EUGENE Administration Escitalopram Oxalate 10 mg 08/26/19 11:15 08/27/19 10:22 Lexapro - PO 10 mg DAILY EUGENE Administration Furosemide 40 mg 08/27/19 10:00 08/27/19 10:21 Lasix - PO 40 mg DAILY EUGENE Administration Meropenem 1 gm/ Dextrose 100 mls @ 200 mls/hr 08/27/19 10:00 08/27/19 10:54 IVPB 200 mls/hr Q8H-IV EUGENE Administration Levetiracetam 500 mg/ 750 mg 08/26/19 12:00 08/27/19 10:22 Levetiracetam 250 mg PO 750 mg BID EUGENE Administration Levothyroxine Sodium 100 mcg/ 175 mcg 08/27/19 07:00 08/27/19 06:07 Levothyroxine Sodium 75 mcg PO 175 mcg DAILY@0700 EUGENE Administration Non-Formulary Medication 500 mg 08/26/19 11:15 Dicloxacillin Sodium [Dicloxacillin Sodium] PO Q8H EUGENE Spironolactone 25 mg 08/26/19 11:15 08/27/19 10:22 Aldactone - PO 25 mg DAILY EUGENE Administration Tamsulosin HCl 0.8 mg 08/26/19 22:00 08/26/19 22:50 Flomax - PO 0.8 mg HS EUGENE Administration S1 S2 RRR Lungs clear Abd- soft, Nt [place]+ Edema trace+ PLAN UTI Urinary retention HTN CAD CHF C/c osteomyelitis --- on iv antibiotics for UTI -- spoke with ID -- continue with meds Problem List - Problems (1) Acute urinary retention Code(s): R33.8 - OTHER RETENTION OF URINE (2) UTI (urinary tract infection) Code(s): N39.0 - URINARY TRACT INFECTION, SITE NOT SPECIFIED Qualifiers: Urinary tract infection type: site unspecified Hematuria presence: with hematuria Qualified Code(s): N39.0 - Urinary tract infection, site not specified (3) BPH (benign prostatic hyperplasia) Code(s): N40.0 - BENIGN PROSTATIC HYPERPLASIA WITHOUT LOWER URINRY TRACT SYMP (4) CAD (coronary artery disease) Code(s): I25.10 - ATHSCL HEART DISEASE OF [place] CORONARY ARTERY W/O ANG PCTRS Qualifiers: Coronary Disease-Associated Artery/Lesion type: bypass graft [place] vs. transplanted heart: [place] heart Associated angina: angina presence unspecified Qualified Code(s): I25.810 - Atherosclerosis of coronary artery bypass graft(s) without angina pectoris (5) Congestive heart disease Code(s): I50.9 - HEART FAILURE, UNSPECIFIED Qualifiers: Heart failure type: combined systolic and diastolic Heart failure chronicity: acute on chronic Qualified Code(s): I50.43 - Acute on chronic combined systolic (congestive) and diastolic (congestive) heart failure
--- NOTE | 2019-08-27 13:32 | CON.GU ---
Consult - History of Present Illness History of Present Illness: 78 yo male admitted with urinary retention. Similar episode a few weeks ago. No prior h/o prostate surgery. Pt is not ambulatory. H/o meningioma and neuropathy. Currenlty on flomax 0.8mg. 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: CVA (questionable CVA in past), Peripheral Neuropathy, Other ( meningioma) Cardio/Vascular: Yes: AFIB, CAD (s/p CABG), CHF, Deep Vein Thrombosis, HTN, Hyperlipdemia Pulmonary: Yes: Pulmonary Embolus (01/20) Renal/: Yes: BPH Psych: Yes: Anxiety, Depression Musculoskeletal: Yes: Chronic low back pain, Osteoarthritis (to left knee) Endocrine: Yes: Diabetes Mellitus, Hypothyroidism - Past Surgical History Past Surgical History: Yes: Appendectomy, CABG ( 4) - Alcohol/Substance Use Hx Alcohol Use: Yes History of Substance Use: reports: None - Smoking History Smoking history: Never smoked Have you smoked in the past 12 months: No If you are a former smoker, when did you quit?: 40YRS AGO - Social History Usual Living Arrangement: Other ([facility]) ADL: Support Services ([facility]) History of Recent Travel: No Home Medications - Allergies Allergies/Adverse Reactions: Allergies Allergy/AdvReac Type Severity Reaction Status Date / Time No Known Drug Allergies Allergy Verified 08/26/19 07:04 strawberry Allergy Hives Verified 08/26/19 07:04 - Home Medications Home Medications: Ambulatory Orders Alprazolam [Xanax] 1 mg PO HS 02/18/19 Atorvastatin Ca [Lipitor] 80 mg PO HS 02/18/19 Carvedilol [Coreg -] 3.125 mg PO BID 02/18/19 Dicloxacillin Sodium 500 mg PO Q8H 02/18/19 Docusate Sodium [Colace] 100 mg PO BID 02/18/19 Escitalopram Oxalate [Lexapro -] 10 mg PO DAILY 02/18/19 Levetiracetam [Keppra] 750 mg PO BID 02/18/19 Tamsulosin HCl [Flomax] 0.4 mg PO HS 02/18/19 Aspirin [ASA -] 81 mg PO DAILY 05/05/19 Apixaban [Eliquis -] 5 mg PO BID #60 tablet 05/12/19 Enalapril Maleate [Vasotec -] 2.5 mg PO DAILY #30 tablet 05/12/19 Furosemide [Lasix -] 40 mg PO DAILY #30 tablet 05/12/19 Levothyroxine [Synthroid -] 175 mcg PO DAILY@0700 #30 tablet 05/12/19 Spironolactone [Aldactone -] 25 mg PO DAILY #30 tablet 05/12/19 Cyclobenzaprine HCl [Flexeril -] 10 mg PO BID PRN #6 tablet 06/20/19 Gabapentin 100 mg PO BID 08/26/19 Oxycodone HCl/Acetaminophen [Percocet 5-325 mg Tablet] 1 tab PO PRN PRN Sennosides [Senna] 8.6 mg PO DAILY 08/26/19 traMADol HCL [Ultram] 50 mg PO Q6H 08/26/19 Review of Systems - Review of Systems Genitourinary: reports: Other (retention) Physical Exam- Vital Signs: Vital Signs Temperature 98.1 F 08/27/19 06:00 Pulse Rate 86 08/27/19 06:00 Respiratory Rate 20 08/27/19 06:00 Blood Pressure 92/64 08/27/19 06:00 O2 Sat by Pulse Oximetry (%) 98 08/26/19 18:00 Renal/: Yes: Alvarez Present Labs: CBC, BMP 08/26/19 08:45 08/26/19 08:45 Problem List - Problems (1) Acute urinary retention Assessment/Plan: pt already on max flomax, unclear if etiology if the retention is BPH related or neurogenic mediated. Will give repeat trial of void. If unable to void, will consider TURP if pt agreeable Code(s): R33.8 - OTHER RETENTION OF URINE
--- NOTE | 2019-08-27 13:36 | EKG ---
Test Reason : Blood Pressure : / mmHG Vent. Rate : 091 BPM Atrial Rate : 375 BPM P-R Int : 000 ms QRS Dur : 122 ms QT Int : 344 ms P-R-T Axes : 000 -57 228 degrees QTc Int : 423 ms ATRIAL FIBRILLATION WITH PREMATURE VENTRICULAR OR ABERRANTLY CONDUCTED COMPLEXES LEFT AXIS DEVIATION INFERIOR INFARCT (CITED ON OR BEFORE 23-JUL-2006) ABNORMAL ECG Confirmed by BOBBY TEAGUE MD ([id number]) on 08/27/2019 1:36:19 PM Referred By: Confirmed By:BOBBY TEAGUE MD
[2019-08-27] MEDS: DICLOXACILLIN SODIUM 250 MG CAPSULE PO SCH ×2 (13:47→23:39)
[2019-08-27 17:21] LABS: BASO % 2.7 % (0-2.0); EOS % 7.7 % (0-4.5); HEMATOCRIT 29.2 % (35.4-49); HEMOGLOBIN 9.9 GM/dL (11.7-16.9); LYMPH % 17.3 % (8-40); MCH 32.6 pg (25.7-33.7); MCHC 33.8 g/dl (32.0-35.9); MEAN CELL VOLUME 96.7 fl (80-96); MEAN PLT VOLUME 8.1 fl (7.5-11.1); MONO % 12.6 % (3.8-10.2); NEUT % 59.7 % (42.8-82.8); PLATELET COUNT 147 K/MM3 (134-434); RBC 3.02 M/mm3 (4.00-5.60); RDW 15.8 % (11.9-15.9); WHITE BLOOD COUNT 5.6 K/mm3 (4.0-10.0)
[2019-08-27 17:54] LABS: ALBUMIN 2.6 g/dl (3.4-5.0); BILIRUBIN,TOTAL 0.4 mg/dL (0.2-1); CALCIUM 7.9 mg/dL (8.5-10.1); CREATININE 0.8 mg/dL (0.55-1.3); POTASSIUM 3.6 mmol/L (3.5-5.1); TOT PROT 5.4 g/dl (6.4-8.2)
[2019-08-27] MEDS ORDERED: ALPRAZolam 1 MG TABLET PO ONE (18:22)
[2019-08-27] MEDS: ATORVASTATIN CA 80 MG TABLET (FP) PO SCH (23:33)
[2019-08-27] MEDS: ALPRAZolam 1 MG TABLET PO SCH (23:34)
[2019-08-27] MEDS: TAMSULOSIN HCL 0.4 MG CAP PO SCH (23:34)
[2019-08-28] MEDS: CYCLOBENZAPRINE HCL 10 MG TABLET (FP) PO PRN (00:29)
[2019-08-28] MEDS ORDERED: MEROPENEM 1 GM VIAL (RESTRICTED TO ID) IVPB ONE ×3 (01:05→17:08)
[2019-08-28] MEDS ORDERED: DEXTROSE 5%-WATER 100 ML IVPB ONE ×3 (01:05→17:08)
[2019-08-28] MEDS: MEROPENEM 1 GM in DEXTROSE 5%-WATER 100 ML IVPB SCH ×3 (01:48→17:29)
[2019-08-28] MEDS ORDERED: LEVOTHYROXINE NA 100 MCG TABLET (FP) ONE (06:09)
[2019-08-28] MEDS ORDERED: LEVOTHYROXINE NA 75 MCG TABLET (FP) ONE (06:09)
[2019-08-28] MEDS: DICLOXACILLIN SODIUM 250 MG CAPSULE PO SCH ×3 (06:15→21:20)
[2019-08-28] MEDS: LEVOTHYROXINE 100 MCG, LEVOTHYROXINE 75 MCG PO SCH (06:15)
[2019-08-28] MEDS ORDERED: levETIRAcetam 250 MG TABLET (FP) PO ONE ×2 (09:30→21:00)
[2019-08-28] MEDS ORDERED: levETIRAcetam 500 MG TABLET (FP) PO ONE ×2 (09:30→21:00)
[2019-08-28] MEDS ORDERED: PT OWN MED DRAWER 7, Y5N ONE ×3 (09:32→21:01)
--- NOTE | 2019-08-28 09:51 | PN ---
Progress Note (short form) - Note Progress Note: failed trial of void straight cath last night pt interested in TURP but is moving to [place] would replace [place] Problem List - Problems (1) Acute urinary retention Code(s): R33.8 - OTHER RETENTION OF URINE
[2019-08-28] MEDS: ASPIRIN 81 MG CHEWABLE TABLETS PO SCH (10:21)
[2019-08-28] MEDS: SPIRONOLACTONE 25 MG TABLET (FP) PO SCH (10:21)
[2019-08-28] MEDS: DOCUSATE SODIUM 100 MG CAPSULE (FP) PO SCH ×2 (10:21→21:15)
[2019-08-28] MEDS: APIXABAN 5 MG TABLET PO SCH ×2 (10:21→21:16)
[2019-08-28] MEDS: ESCITALOPRAM OXALATE 10 MG TABLET (FP) PO SCH (10:21)
[2019-08-28] MEDS: FUROSEMIDE 40 MG TABLET (FP) PO SCH (10:21)
[2019-08-28] MEDS: CARVEDILOL 3.125 MG TABLET (FP) PO SCH ×2 (10:22→21:15)
[2019-08-28] MEDS: ENALAPRIL MALEATE 2.5 MG TABLET (FP) PO SCH (10:22)
--- NOTE | 2019-08-28 11:53 | PN ---
Progress Note (short form) - Note Progress Note: pt seen/ examined chart reviewed awake/comfortable [place] placed again Vital Signs Temp 98.2 F 08/28/19 10:00 Pulse 65 08/28/19 10:00 Resp 18 08/28/19 10:00 BP 95/54 L 08/28/19 10:00 Pulse Ox 97 08/27/19 21:00 Intake & Output 08/27/19 08/27/19 08/28/19 11:59 23:59 11:59 Intake Total 0 560 Output Total 400 1040 1100 Balance -400 -480 -1100 Weight 145 lb 1 oz 150 lb Intake: IV 0 Normal Saline - 500 ml @ 0 500 mls/hr IV ASDIR STA Rx#:[id number] IVPB 200 Oral 360 Output: Urine 400 1040 1100 [place] 400 1040 200 Straight Cath 900 Other: Voiding Method Indwelling Catheter Urinal Bowel Movement No No # Bowel Movements 1 Height 5 ft 11 in Body Mass Index (BMI) 19.8 Weight Measurement Method [facility] Medications Alprazolam (Xanax) 1 mg PO HS [facility] Last Admin: 08/27/19 23:34 Dose: 1 mg Apixaban (Eliquis -) 5 mg PO BID [facility] Last Admin: 08/28/19 10:21 Dose: 5 mg Aspirin (Asa -) 81 mg PO DAILY [facility] Last Admin: 08/28/19 10:21 Dose: 81 mg Atorvastatin Calcium (Lipitor -) 80 mg PO HS [facility] Last Admin: 08/27/19 23:33 Dose: 80 mg Carvedilol (Coreg -) 3.125 mg PO BID [facility] Last Admin: 08/28/19 10:22 Dose: Not Given Cyclobenzaprine HCl (Flexeril -) 10 mg PO BID PRN PRN Reason: PAIN Last Admin: 08/28/19 00:29 Dose: 10 mg Dicloxacillin Sodium (Dynapen -) 500 mg PO TID [facility] Last Admin: 08/28/19 06:15 Dose: 500 mg Docusate Sodium (Colace -) 100 mg PO BID [facility] Last Admin: 08/28/19 10:21 Dose: 100 mg Enalapril Maleate (Vasotec -) 2.5 mg PO DAILY [facility] Last Admin: 08/28/19 10:22 Dose: Not Given Escitalopram Oxalate (Lexapro -) 10 mg PO DAILY [facility] Last Admin: 08/28/19 10:21 Dose: 10 mg Furosemide (Lasix -) 40 mg PO DAILY [facility] Last Admin: 08/28/19 10:21 Dose: 40 mg Meropenem 1 gm/ Dextrose 100 mls @ 200 mls/hr IVPB Q8H-IV [facility] Last Admin: 08/28/19 10:21 Dose: 200 mls/hr Levetiracetam 500 mg/ (Levetiracetam 250 mg) 750 mg PO BID [facility] Last Admin: 08/28/19 10:21 Dose: 750 mg Levothyroxine Sodium 100 mcg/ (Levothyroxine Sodium 75 mcg) 175 mcg PO DAILY@ 0700 [facility] Last Admin: 08/28/19 06:15 Dose: 175 mcg Spironolactone (Aldactone -) 25 mg PO DAILY [facility] Last Admin: 08/28/19 10:21 Dose: 25 mg Tamsulosin HCl (Flomax -) 0.8 mg PO HS [facility] Last Admin: 08/27/19 23:34 Dose: 0.8 mg CBC, BMP 08/27/19 16:52 08/27/19 16:52 Microbiology 08/26/19 08:35 Urine Culture - Final Urine - Urine - Catheterized Escherichia Coli [employer] Physical Exam S1 S2 RRR Lungs clear Abd- soft, Nt [place]+ Edema trace+ PLAN UTI Urinary retention HTN CAD CHF C/c osteomyelitis --- on iv antibiotics for UTI -- -- continue with meds - urology following for urinary retention --will follow. d/w rn also Problem List - Problems (1) Acute urinary retention Code(s): R33.8 - OTHER RETENTION OF URINE (2) UTI (urinary tract infection) Code(s): N39.0 - URINARY TRACT INFECTION, SITE NOT SPECIFIED Qualifiers: Urinary tract infection type: site unspecified Hematuria presence: with hematuria Qualified Code(s): N39.0 - Urinary tract infection, site not specified (3) BPH (benign prostatic hyperplasia) Code(s): N40.0 - BENIGN PROSTATIC HYPERPLASIA WITHOUT LOWER URINRY TRACT SYMP (4) CAD (coronary artery disease) Code(s): I25.10 - ATHSCL HEART DISEASE OF [place] CORONARY ARTERY W/O ANG PCTRS Qualifiers: Coronary Disease-Associated Artery/Lesion type: bypass graft [place] vs. transplanted heart: [place] heart Associated angina: angina presence unspecified Qualified Code(s): I25.810 - Atherosclerosis of coronary artery bypass graft(s) without angina pectoris (5) Congestive heart disease Code(s): I50.9 - HEART FAILURE, UNSPECIFIED Qualifiers: Heart failure type: combined systolic and diastolic Heart failure chronicity: acute on chronic Qualified Code(s): I50.43 - Acute on chronic combined systolic (congestive) and diastolic (congestive) heart failure
--- NOTE | 2019-08-28 12:01 | PN ---
Progress Note, Physician History of Present Illness: stable no new issues - Current Medication List Current Medications: Active Medications Alprazolam (Xanax) 1 mg PO HS [facility] Last Admin: 08/27/19 23:34 Dose: 1 mg Apixaban (Eliquis -) 5 mg PO BID [facility] Last Admin: 08/28/19 10:21 Dose: 5 mg Aspirin (Asa -) 81 mg PO DAILY [facility] Last Admin: 08/28/19 10:21 Dose: 81 mg Atorvastatin Calcium (Lipitor -) 80 mg PO HS [facility] Last Admin: 08/27/19 23:33 Dose: 80 mg Carvedilol (Coreg -) 3.125 mg PO BID [facility] Last Admin: 08/28/19 10:22 Dose: Not Given Cyclobenzaprine HCl (Flexeril -) 10 mg PO BID PRN PRN Reason: PAIN Last Admin: 08/28/19 00:29 Dose: 10 mg Dicloxacillin Sodium (Dynapen -) 500 mg PO TID [facility] Last Admin: 08/28/19 06:15 Dose: 500 mg Docusate Sodium (Colace -) 100 mg PO BID [facility] Last Admin: 08/28/19 10:21 Dose: 100 mg Enalapril Maleate (Vasotec -) 2.5 mg PO DAILY [facility] Last Admin: 08/28/19 10:22 Dose: Not Given Escitalopram Oxalate (Lexapro -) 10 mg PO DAILY [facility] Last Admin: 08/28/19 10:21 Dose: 10 mg Furosemide (Lasix -) 40 mg PO DAILY [facility] Last Admin: 08/28/19 10:21 Dose: 40 mg Meropenem 1 gm/ Dextrose 100 mls @ 200 mls/hr IVPB Q8H-IV [facility] Last Admin: 08/28/19 10:21 Dose: 200 mls/hr Levetiracetam 500 mg/ (Levetiracetam 250 mg) 750 mg PO BID [facility] Last Admin: 08/28/19 10:21 Dose: 750 mg Levothyroxine Sodium 100 mcg/ (Levothyroxine Sodium 75 mcg) 175 mcg PO DAILY@ 0700 [facility] Last Admin: 08/28/19 06:15 Dose: 175 mcg Spironolactone (Aldactone -) 25 mg PO DAILY [facility] Last Admin: 08/28/19 10:21 Dose: 25 mg Tamsulosin HCl (Flomax -) 0.8 mg PO HS [facility] Last Admin: 08/27/19 23:34 Dose: 0.8 mg - Objective Vital Signs: Vital Signs Temperature 98.2 F 08/28/19 10:00 Pulse Rate 65 08/28/19 10:00 Respiratory Rate 18 08/28/19 10:00 Blood Pressure 95/54 L 08/28/19 10:00 O2 Sat by Pulse Oximetry (%) 97 08/27/19 21:00 Constitutional: Yes: No Distress, Calm Cardiovascular: Yes: S1, S2 Respiratory: Yes: Regular, CTA Bilaterally Gastrointestinal: Yes: Normal Bowel Sounds, Soft Genitourinary: Yes: Alvarez Present Musculoskeletal: Yes: WNL Extremities: Yes: WNL Neurological: Yes: Alert, Oriented Psychiatric: Yes: Alert, Oriented Labs: CBC, BMP 08/27/19 16:52 08/27/19 16:52 Assessment/Plan continue current abx cx report noted need for 2 weeks rest as per the team
[2019-08-28] MEDS: TAMSULOSIN HCL 0.4 MG CAP PO SCH (21:15)
[2019-08-28] MEDS: ATORVASTATIN CA 80 MG TABLET (FP) PO SCH (21:15)
[2019-08-28] MEDS: ALPRAZolam 1 MG TABLET PO SCH (21:16)
[2019-08-29] MEDS ORDERED: MEROPENEM 1 GM VIAL (RESTRICTED TO ID) IVPB ONE ×3 (01:00→17:05)
[2019-08-29] MEDS ORDERED: DEXTROSE 5%-WATER 100 ML IVPB ONE ×3 (01:00→17:05)
[2019-08-29] MEDS: MEROPENEM 1 GM in DEXTROSE 5%-WATER 100 ML IVPB SCH ×3 (01:09→17:12)
[2019-08-29] MEDS ORDERED: LEVOTHYROXINE NA 75 MCG TABLET (FP) ONE (05:47)
[2019-08-29] MEDS ORDERED: LEVOTHYROXINE NA 100 MCG TABLET (FP) ONE (05:47)
[2019-08-29] MEDS ORDERED: PT OWN MED DRAWER 7, Y5N ONE ×5 (05:47→21:01)
[2019-08-29] MEDS: DICLOXACILLIN SODIUM 250 MG CAPSULE PO SCH ×3 (06:04→21:10)
[2019-08-29] MEDS: LEVOTHYROXINE 100 MCG, LEVOTHYROXINE 75 MCG PO SCH (06:05)
[2019-08-29] MEDS ORDERED: levETIRAcetam 250 MG TABLET (FP) PO ONE ×2 (09:21→20:59)
[2019-08-29] MEDS ORDERED: levETIRAcetam 500 MG TABLET (FP) PO ONE ×2 (09:21→20:59)
[2019-08-29] MEDS: CARVEDILOL 3.125 MG TABLET (FP) PO SCH ×2 (09:40→21:10)
[2019-08-29] MEDS: ENALAPRIL MALEATE 2.5 MG TABLET (FP) PO SCH (09:40)
[2019-08-29] MEDS: APIXABAN 5 MG TABLET PO SCH ×2 (09:41→21:11)
[2019-08-29] MEDS: DOCUSATE SODIUM 100 MG CAPSULE (FP) PO SCH ×2 (09:41→21:10)
[2019-08-29] MEDS: ESCITALOPRAM OXALATE 10 MG TABLET (FP) PO SCH (09:41)
[2019-08-29] MEDS: FUROSEMIDE 40 MG TABLET (FP) PO SCH (09:41)
[2019-08-29] MEDS: ASPIRIN 81 MG CHEWABLE TABLETS PO SCH (09:41)
[2019-08-29] MEDS: SPIRONOLACTONE 25 MG TABLET (FP) PO SCH (09:41)
--- NOTE | 2019-08-29 10:38 | PN ---
Progress Note (short form) - Note Progress Note: No distress Vital Signs - 24 hr 08/29/19 08/29/19 08/29/19 05:00 09:39 14:26 Temperature 98.2 F 98.3 F 98.6 F Pulse Rate 71 87 61 Respiratory 20 18 18 Rate Blood Pressure 98/51 L 77/58 L 91/57 L 08/29/19 08/29/19 17:10 19:32 Temperature 98.3 F 98.5 F Pulse Rate 66 77 Respiratory 20 20 Rate Blood Pressure 90/45 L 85/47 L Current Medications Generic Name Dose Route Start Last Admin Trade Name Freq PRN Reason Stop Dose Admin Alprazolam 1 mg 08/26/19 22:00 08/28/19 21:16 Xanax PO Not Given HS EUGENE Apixaban 5 mg 08/26/19 11:15 08/29/19 09:41 Eliquis - PO 5 mg BID [facility] Administration Aspirin 81 mg 08/27/19 10:00 08/29/19 09:41 Asa - PO 81 mg DAILY [facility] Administration Atorvastatin Calcium 80 mg 08/26/19 22:00 08/28/19 21:15 Lipitor - PO 80 mg HS [facility] Administration Carvedilol 3.125 mg 08/26/19 22:00 08/29/19 09:40 Coreg - PO Not Given BID [facility] Cyclobenzaprine HCl 10 mg 08/26/19 11:04 08/28/19 00:29 Flexeril - PO 10 mg BID PRN Administration PAIN Dicloxacillin Sodium 500 mg 08/27/19 14:00 08/29/19 13:58 Dynapen - PO 500 mg TID [facility] Administration Docusate Sodium 100 mg 08/26/19 22:00 08/29/19 09:41 Colace - PO 100 mg BID [facility] Administration Enalapril Maleate 2.5 mg 08/26/19 11:15 08/29/19 09:40 Vasotec - PO Not Given DAILY [facility] Escitalopram Oxalate 10 mg 08/26/19 11:15 08/29/19 09:41 Lexapro - PO 10 mg DAILY [facility] Administration Furosemide 40 mg 08/27/19 10:00 08/29/19 09:41 Lasix - PO 40 mg DAILY [facility] Administration Meropenem 1 gm/ Dextrose 100 mls @ 200 mls/hr 08/27/19 10:00 08/29/19 17:12 IVPB 200 mls/hr Q8H-IV [facility] Administration Levetiracetam 500 mg/ 750 mg 08/26/19 12:00 08/29/19 09:41 Levetiracetam 250 mg PO 750 mg BID [facility] Administration Levothyroxine Sodium 100 mcg/ 175 mcg 08/27/19 07:00 08/29/19 06:05 Levothyroxine Sodium 75 mcg PO 175 mcg DAILY@0700 [facility] Administration Spironolactone 25 mg 08/26/19 11:15 08/29/19 09:41 Aldactone - PO 25 mg DAILY [facility] Administration Tamsulosin HCl 0.8 mg 08/26/19 22:00 08/28/19 21:15 Flomax - PO 0.8 mg HS [facility] Administration S1 S2 RRR Lungs clear Abd- soft, Nt [place]+ Edema trace+ PLAN UTI Urinary retention HTN CAD CHF C/c osteomyelitis --- on iv antibiotics for UTI -- spoke with ID -- continue with meds Problem List - Problems (1) Acute urinary retention Code(s): R33.8 - OTHER RETENTION OF URINE (2) UTI (urinary tract infection) Code(s): N39.0 - URINARY TRACT INFECTION, SITE NOT SPECIFIED Qualifiers: Urinary tract infection type: site unspecified Hematuria presence: with hematuria Qualified Code(s): N39.0 - Urinary tract infection, site not specified (3) Atrial fibrillation Code(s): I48.91 - UNSPECIFIED ATRIAL FIBRILLATION Qualifiers: Atrial fibrillation type: persistent (4) BPH (benign prostatic hyperplasia) Code(s): N40.0 - BENIGN PROSTATIC HYPERPLASIA WITHOUT LOWER URINRY TRACT SYMP (5) CAD (coronary artery disease) Code(s): I25.10 - ATHSCL HEART DISEASE OF [place] CORONARY ARTERY W/O ANG PCTRS Qualifiers: Coronary Disease-Associated Artery/Lesion type: bypass graft [place] vs. transplanted heart: [place] heart Associated angina: angina presence unspecified Qualified Code(s): I25.810 - Atherosclerosis of coronary artery bypass graft(s) without angina pectoris
--- NOTE | 2019-08-29 11:16 | PN ---
Progress Note, Physician History of Present Illness: Pt is alert, afebrile. States he feels better. Has no specific complaints. - Current Medication List Current Medications: Active Medications Alprazolam (Xanax) 1 mg PO HS [facility] Last Admin: 08/28/19 21:16 Dose: Not Given Apixaban (Eliquis -) 5 mg PO BID [facility] Last Admin: 08/29/19 09:41 Dose: 5 mg Aspirin (Asa -) 81 mg PO DAILY [facility] Last Admin: 08/29/19 09:41 Dose: 81 mg Atorvastatin Calcium (Lipitor -) 80 mg PO HS [facility] Last Admin: 08/28/19 21:15 Dose: 80 mg Carvedilol (Coreg -) 3.125 mg PO BID [facility] Last Admin: 08/29/19 09:40 Dose: Not Given Cyclobenzaprine HCl (Flexeril -) 10 mg PO BID PRN PRN Reason: PAIN Last Admin: 08/28/19 00:29 Dose: 10 mg Dicloxacillin Sodium (Dynapen -) 500 mg PO TID [facility] Last Admin: 08/29/19 06:04 Dose: 500 mg Docusate Sodium (Colace -) 100 mg PO BID [facility] Last Admin: 08/29/19 09:41 Dose: 100 mg Enalapril Maleate (Vasotec -) 2.5 mg PO DAILY [facility] Last Admin: 08/29/19 09:40 Dose: Not Given Escitalopram Oxalate (Lexapro -) 10 mg PO DAILY [facility] Last Admin: 08/29/19 09:41 Dose: 10 mg Furosemide (Lasix -) 40 mg PO DAILY [facility] Last Admin: 08/29/19 09:41 Dose: 40 mg Meropenem 1 gm/ Dextrose 100 mls @ 200 mls/hr IVPB Q8H-IV [facility] Last Admin: 08/29/19 09:41 Dose: 200 mls/hr Levetiracetam 500 mg/ (Levetiracetam 250 mg) 750 mg PO BID [facility] Last Admin: 08/29/19 09:41 Dose: 750 mg Levothyroxine Sodium 100 mcg/ (Levothyroxine Sodium 75 mcg) 175 mcg PO DAILY@ 0700 [facility] Last Admin: 08/29/19 06:05 Dose: 175 mcg Spironolactone (Aldactone -) 25 mg PO DAILY [facility] Last Admin: 08/29/19 09:41 Dose: 25 mg Tamsulosin HCl (Flomax -) 0.8 mg PO HS [facility] Last Admin: 08/28/19 21:15 Dose: 0.8 mg - Objective Vital Signs: Vital Signs Temperature 98.3 F 08/29/19 09:39 Pulse Rate 87 08/29/19 09:39 Respiratory Rate 18 08/29/19 09:39 Blood Pressure 77/58 L 08/29/19 09:39 O2 Sat by Pulse Oximetry (%) 97 08/28/19 21:00 Constitutional: Yes: No Distress, Calm Cardiovascular: Yes: Regular Rate and Rhythm Respiratory: Yes: Regular Gastrointestinal: Yes: Normal Bowel Sounds, Soft Genitourinary: Yes: Alvarez Present Extremities: Yes: WNL Peripheral Pulses WNL: Yes Integumentary: Yes: WNL Neurological: Yes: Alert Labs: CBC, BMP 08/27/19 16:52 08/27/19 16:52 Problem List - Problems (1) Acute urinary retention Code(s): R33.8 - OTHER RETENTION OF URINE (2) UTI (urinary tract infection) Code(s): N39.0 - URINARY TRACT INFECTION, SITE NOT SPECIFIED Qualifiers: Urinary tract infection type: site unspecified Hematuria presence: with hematuria Qualified Code(s): N39.0 - Urinary tract infection, site not specified (3) TRUDY (acute kidney injury) Code(s): N17.9 - ACUTE KIDNEY FAILURE, UNSPECIFIED (4) Atrial fibrillation Code(s): I48.91 - UNSPECIFIED ATRIAL FIBRILLATION Qualifiers: Atrial fibrillation type: persistent (5) CAD (coronary artery disease) Code(s): I25.10 - ATHSCL HEART DISEASE OF [place] CORONARY ARTERY W/O ANG PCTRS Qualifiers: Coronary Disease-Associated Artery/Lesion type: bypass graft [place] vs. transplanted heart: [place] heart Associated angina: angina presence unspecified Qualified Code(s): I25.810 - Atherosclerosis of coronary artery bypass graft(s) without angina pectoris (6) Congestive heart disease Code(s): I50.9 - HEART FAILURE, UNSPECIFIED Qualifiers: Heart failure type: combined systolic and diastolic Heart failure chronicity: acute on chronic Qualified Code(s): I50.43 - Acute on chronic combined systolic (congestive) and diastolic (congestive) heart failure (7) Deep vein thrombosis (DVT) of left lower extremity Code(s): I82.402 - ACUTE EMBOLISM AND THOMBOS UNSP DEEP VEINS OF L LOW EXTREM Qualifiers: Chronicity: acute (8) Diabetes Code(s): E11.9 - TYPE 2 DIABETES MELLITUS WITHOUT COMPLICATIONS (9) HTN (hypertension) Code(s): I10 - ESSENTIAL (PRIMARY) HYPERTENSION Qualifiers: Hypertension type: essential hypertension Qualified Code(s): I10 - Essential (primary) hypertension (10) Hypothyroidism Code(s): E03.9 - HYPOTHYROIDISM, UNSPECIFIED Assessment/Plan UTI Urinary retention DM CAD AFIB Hx of DVT/PE -- Urine culture results noted: ESBL E.coli -- Continue Meropenem -- Urology follow up Continue monitor
[2019-08-29] MEDS: TAMSULOSIN HCL 0.4 MG CAP PO SCH (21:10)
[2019-08-29] MEDS: ALPRAZolam 1 MG TABLET PO SCH (21:10)
[2019-08-29] MEDS: ATORVASTATIN CA 80 MG TABLET (FP) PO SCH (21:10)
[2019-08-30] MEDS ORDERED: MEROPENEM 1 GM VIAL (RESTRICTED TO ID) IVPB ONE ×3 (01:17→17:34)
[2019-08-30] MEDS ORDERED: DEXTROSE 5%-WATER 100 ML IVPB ONE ×3 (01:17→17:35)
[2019-08-30] MEDS: MEROPENEM 1 GM in DEXTROSE 5%-WATER 100 ML IVPB SCH ×3 (01:27→18:06)
[2019-08-30] MEDS ORDERED: PT OWN MED DRAWER 7, Y5N ONE ×3 (05:29→18:17)
[2019-08-30] MEDS ORDERED: LEVOTHYROXINE NA 75 MCG TABLET (FP) ONE (05:29)
[2019-08-30] MEDS ORDERED: LEVOTHYROXINE NA 100 MCG TABLET (FP) ONE (05:29)
[2019-08-30] MEDS: DICLOXACILLIN SODIUM 250 MG CAPSULE PO SCH ×4 (06:01→23:05)
[2019-08-30] MEDS: LEVOTHYROXINE 100 MCG, LEVOTHYROXINE 75 MCG PO SCH (06:01)
[2019-08-30] MEDS ORDERED: levETIRAcetam 500 MG TABLET (FP) PO ONE ×2 (09:24→20:55)
[2019-08-30] MEDS ORDERED: levETIRAcetam 250 MG TABLET (FP) PO ONE ×2 (09:24→20:56)
--- NOTE | 2019-08-30 09:31 | PN ---
Progress Note (short form) - Note Progress Note: No distress Vital Signs - 24 hr 08/29/19 08/30/19 08/30/19 19:32 09:00 10:00 Temperature 98.5 F 98 F Pulse Rate 77 80 Respiratory 20 18 Rate Blood Pressure 85/47 L 86/61 L O2 Sat by Pulse 97 Oximetry (%) 08/30/19 14:00 Temperature 98.2 F Pulse Rate 76 Respiratory 18 Rate Blood Pressure 87/49 L O2 Sat by Pulse Oximetry (%) Current Medications Generic Name Dose Route Start Last Admin Trade Name Freq PRN Reason Stop Dose Admin Alprazolam 1 mg 08/26/19 22:00 08/29/19 21:10 Xanax PO 1 mg HS [facility] Administration Apixaban 5 mg 08/26/19 11:15 08/30/19 09:34 Eliquis - PO 5 mg BID [facility] Administration Aspirin 81 mg 08/27/19 10:00 08/30/19 09:34 Asa - PO 81 mg DAILY [facility] Administration Atorvastatin Calcium 80 mg 08/26/19 22:00 08/29/19 21:10 Lipitor - PO 80 mg HS [facility] Administration Carvedilol 3.125 mg 08/26/19 22:00 08/30/19 09:35 Coreg - PO Not Given BID [facility] Cyclobenzaprine HCl 10 mg 08/26/19 11:04 08/28/19 00:29 Flexeril - PO 10 mg BID PRN Administration PAIN Dicloxacillin Sodium 500 mg 08/27/19 14:00 08/30/19 14:24 Dynapen - PO 500 mg TID [facility] Administration Docusate Sodium 100 mg 08/26/19 22:00 08/30/19 09:34 Colace - PO 100 mg BID [facility] Administration Enalapril Maleate 2.5 mg 08/26/19 11:15 08/30/19 09:35 Vasotec - PO Not Given DAILY [facility] Escitalopram Oxalate 10 mg 08/26/19 11:15 08/30/19 09:34 Lexapro - PO 10 mg DAILY [facility] Administration Furosemide 40 mg 08/27/19 10:00 08/30/19 09:34 Lasix - PO 40 mg DAILY [facility] Administration Meropenem 1 gm/ Dextrose 100 mls @ 200 mls/hr 08/27/19 10:00 08/30/19 09:35 IVPB 200 mls/hr Q8H-IV [facility] Administration Levetiracetam 500 mg/ 750 mg 08/26/19 12:00 08/30/19 09:34 Levetiracetam 250 mg PO 750 mg BID [facility] Administration Levothyroxine Sodium 100 mcg/ 175 mcg 08/27/19 07:00 08/30/19 06:01 Levothyroxine Sodium 75 mcg PO 175 mcg DAILY@0700 [facility] Administration Spironolactone 25 mg 08/26/19 11:15 08/30/19 09:35 Aldactone - PO 25 mg DAILY [facility] Administration Tamsulosin HCl 0.8 mg 08/26/19 22:00 08/29/19 21:10 Flomax - PO 0.8 mg HS [facility] Administration S1 S2 RRR Lungs clear Abd- soft, Nt [place]+ Edema trace+ PLAN UTI Urinary retention HTN CAD CHF C/c osteomyelitis --- on iv antibiotics for UTI-- 2 weeks per ID -->needs a picc line -- spoke with ID -- continue with meds Problem List - Problems (1) Acute urinary retention Code(s): R33.8 - OTHER RETENTION OF URINE (2) UTI (urinary tract infection) Code(s): N39.0 - URINARY TRACT INFECTION, SITE NOT SPECIFIED Qualifiers: Urinary tract infection type: site unspecified Hematuria presence: with hematuria Qualified Code(s): N39.0 - Urinary tract infection, site not specified (3) Atrial fibrillation Code(s): I48.91 - UNSPECIFIED ATRIAL FIBRILLATION Qualifiers: Atrial fibrillation type: persistent (4) BPH (benign prostatic hyperplasia) Code(s): N40.0 - BENIGN PROSTATIC HYPERPLASIA WITHOUT LOWER URINRY TRACT SYMP (5) CAD (coronary artery disease) Code(s): I25.10 - ATHSCL HEART DISEASE OF [place] CORONARY ARTERY W/O ANG PCTRS Qualifiers: Coronary Disease-Associated Artery/Lesion type: bypass graft [place] vs. 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
[2019-08-30] MEDS: ESCITALOPRAM OXALATE 10 MG TABLET (FP) PO SCH (09:34)
[2019-08-30] MEDS: DOCUSATE SODIUM 100 MG CAPSULE (FP) PO SCH ×3 (09:34→23:02)
[2019-08-30] MEDS: ASPIRIN 81 MG CHEWABLE TABLETS PO SCH (09:34)
[2019-08-30] MEDS: APIXABAN 5 MG TABLET PO SCH ×3 (09:34→23:04)
[2019-08-30] MEDS: FUROSEMIDE 40 MG TABLET (FP) PO SCH (09:34)
[2019-08-30] MEDS: SPIRONOLACTONE 25 MG TABLET (FP) PO SCH (09:35)
[2019-08-30] MEDS: CARVEDILOL 3.125 MG TABLET (FP) PO SCH ×2 (09:35→21:19)
[2019-08-30] MEDS: ENALAPRIL MALEATE 2.5 MG TABLET (FP) PO SCH (09:35)
--- NOTE | 2019-08-30 14:36 | PN ---
Progress Note, Physician History of Present Illness: Pt without new complaints. Remains afebrile. - Current Medication List Current Medications: Active Medications Alprazolam (Xanax) 1 mg PO HS [facility] Last Admin: 08/29/19 21:10 Dose: 1 mg Apixaban (Eliquis -) 5 mg PO BID [facility] Last Admin: 08/30/19 09:34 Dose: 5 mg Aspirin (Asa -) 81 mg PO DAILY [facility] Last Admin: 08/30/19 09:34 Dose: 81 mg Atorvastatin Calcium (Lipitor -) 80 mg PO HS [facility] Last Admin: 08/29/19 21:10 Dose: 80 mg Carvedilol (Coreg -) 3.125 mg PO BID [facility] Last Admin: 08/30/19 09:35 Dose: Not Given Cyclobenzaprine HCl (Flexeril -) 10 mg PO BID PRN PRN Reason: PAIN Last Admin: 08/28/19 00:29 Dose: 10 mg Dicloxacillin Sodium (Dynapen -) 500 mg PO TID [facility] Last Admin: 08/30/19 14:24 Dose: 500 mg Docusate Sodium (Colace -) 100 mg PO BID [facility] Last Admin: 08/30/19 09:34 Dose: 100 mg Enalapril Maleate (Vasotec -) 2.5 mg PO DAILY [facility] Last Admin: 08/30/19 09:35 Dose: Not Given Escitalopram Oxalate (Lexapro -) 10 mg PO DAILY [facility] Last Admin: 08/30/19 09:34 Dose: 10 mg Furosemide (Lasix -) 40 mg PO DAILY [facility] Last Admin: 08/30/19 09:34 Dose: 40 mg Meropenem 1 gm/ Dextrose 100 mls @ 200 mls/hr IVPB Q8H-IV [facility] Last Admin: 08/30/19 09:35 Dose: 200 mls/hr Levetiracetam 500 mg/ (Levetiracetam 250 mg) 750 mg PO BID [facility] Last Admin: 08/30/19 09:34 Dose: 750 mg Levothyroxine Sodium 100 mcg/ (Levothyroxine Sodium 75 mcg) 175 mcg PO DAILY@ 0700 [facility] Last Admin: 08/30/19 06:01 Dose: 175 mcg Spironolactone (Aldactone -) 25 mg PO DAILY [facility] Last Admin: 08/30/19 09:35 Dose: 25 mg Tamsulosin HCl (Flomax -) 0.8 mg PO HS [facility] Last Admin: 08/29/19 21:10 Dose: 0.8 mg - Objective Vital Signs: Vital Signs Temperature 98 F 08/30/19 10:00 Pulse Rate 80 08/30/19 10:00 Respiratory Rate 18 08/30/19 10:00 Blood Pressure 86/61 L 08/30/19 10:00 O2 Sat by Pulse Oximetry (%) 97 08/30/19 09:00 Constitutional: Yes: No Distress, Calm Cardiovascular: Yes: Regular Rate and Rhythm Respiratory: Yes: Regular Gastrointestinal: Yes: Normal Bowel Sounds, Soft Genitourinary: Yes: Alvarez Present Integumentary: Yes: WNL Neurological: Yes: Alert, Oriented Labs: CBC, BMP 08/27/19 16:52 08/27/19 16:52 Microbiology 08/26/19 08:35 Urine - Urine - Catheterized Urine Culture - Final Escherichia Coli Esbl Bill Cutter Problem List - Problems (1) Acute urinary retention Code(s): R33.8 - OTHER RETENTION OF URINE (2) UTI (urinary tract infection) Code(s): N39.0 - URINARY TRACT INFECTION, SITE NOT SPECIFIED Qualifiers: Urinary tract infection type: site unspecified Hematuria presence: with hematuria Qualified Code(s): N39.0 - Urinary tract infection, site not specified (3) TRUDY (acute kidney injury) Code(s): N17.9 - ACUTE KIDNEY FAILURE, UNSPECIFIED (4) Atrial fibrillation Code(s): I48.91 - UNSPECIFIED ATRIAL FIBRILLATION Qualifiers: Atrial fibrillation type: persistent (5) CAD (coronary artery disease) Code(s): I25.10 - ATHSCL HEART DISEASE OF [place] CORONARY ARTERY W/O ANG PCTRS Qualifiers: Coronary Disease-Associated Artery/Lesion type: bypass graft [place] vs. 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 (6) Congestive heart disease Code(s): I50.9 - HEART FAILURE, UNSPECIFIED Qualifiers: Heart failure type: combined systolic and diastolic Heart failure chronicity: acute on chronic Qualified Code(s): I50.43 - Acute on chronic combined systolic (congestive) and diastolic (congestive) heart failure (7) Deep vein thrombosis (DVT) of left lower extremity Code(s): I82.402 - ACUTE EMBOLISM AND THOMBOS UNSP DEEP VEINS OF L LOW EXTREM Qualifiers: Chronicity: acute (8) Diabetes Code(s): E11.9 - TYPE 2 DIABETES MELLITUS WITHOUT COMPLICATIONS (9) HTN (hypertension) Code(s): I10 - ESSENTIAL (PRIMARY) HYPERTENSION Qualifiers: Hypertension type: essential hypertension Qualified Code(s): I10 - Essential (primary) hypertension (10) Hypothyroidism Code(s): E03.9 - HYPOTHYROIDISM, UNSPECIFIED Assessment/Plan ESBL + E. coli UTI Urinary retention DM CAD AFIB Hx of DVT/PE -- Continue Meropenem -- Urology follow up -- pt afebrile, stable
[2019-08-30] MEDS: TAMSULOSIN HCL 0.4 MG CAP PO SCH ×2 (21:19→23:03)
[2019-08-30] MEDS: ALPRAZolam 1 MG TABLET PO SCH ×2 (21:20→23:02)
[2019-08-30] MEDS: ATORVASTATIN CA 80 MG TABLET (FP) PO SCH ×2 (21:20→23:03)
[2019-08-31] MEDS ORDERED: DEXTROSE 5%-WATER 100 ML IVPB ONE ×3 (00:16→17:09)
[2019-08-31] MEDS ORDERED: MEROPENEM 1 GM VIAL (RESTRICTED TO ID) IVPB ONE ×3 (00:16→17:09)
[2019-08-31] MEDS: CYCLOBENZAPRINE HCL 10 MG TABLET (FP) PO PRN (00:52)
[2019-08-31] MEDS: MEROPENEM 1 GM in DEXTROSE 5%-WATER 100 ML IVPB SCH ×3 (01:29→17:22)
[2019-08-31] MEDS ORDERED: LEVOTHYROXINE NA 100 MCG TABLET (FP) ONE (05:43)
[2019-08-31] MEDS ORDERED: LEVOTHYROXINE NA 75 MCG TABLET (FP) ONE (05:43)
[2019-08-31] MEDS: DICLOXACILLIN SODIUM 250 MG CAPSULE PO SCH ×3 (06:03→21:17)
[2019-08-31] MEDS: LEVOTHYROXINE 100 MCG, LEVOTHYROXINE 75 MCG PO SCH (06:04)
[2019-08-31] MEDS ORDERED: levETIRAcetam 500 MG TABLET (FP) PO ONE ×2 (10:46→20:28)
[2019-08-31] MEDS ORDERED: levETIRAcetam 250 MG TABLET (FP) PO ONE ×2 (10:47→20:28)
[2019-08-31] MEDS ORDERED: PT OWN MED DRAWER 7, Y5N ONE ×2 (10:48→13:49)
[2019-08-31] MEDS: ENALAPRIL MALEATE 2.5 MG TABLET (FP) PO SCH (10:55)
[2019-08-31] MEDS: CARVEDILOL 3.125 MG TABLET (FP) PO SCH ×2 (10:55→21:20)
[2019-08-31] MEDS: DOCUSATE SODIUM 100 MG CAPSULE (FP) PO SCH ×2 (10:58→21:17)
[2019-08-31] MEDS: APIXABAN 5 MG TABLET PO SCH ×2 (10:59→21:17)
[2019-08-31] MEDS: ESCITALOPRAM OXALATE 10 MG TABLET (FP) PO SCH (10:59)
[2019-08-31] MEDS: FUROSEMIDE 40 MG TABLET (FP) PO SCH (10:59)
[2019-08-31] MEDS: SPIRONOLACTONE 25 MG TABLET (FP) PO SCH (10:59)
[2019-08-31] MEDS: ASPIRIN 81 MG CHEWABLE TABLETS PO SCH (10:59)
--- NOTE | 2019-08-31 11:35 | PN ---
Progress Note, Physician History of Present Illness: stable no new issues - Current Medication List Current Medications: Active Medications Alprazolam (Xanax) 1 mg PO HS [facility] Last Admin: 08/30/19 23:02 Dose: 1 mg Apixaban (Eliquis -) 5 mg PO BID [facility] Last Admin: 08/31/19 10:59 Dose: 5 mg Aspirin (Asa -) 81 mg PO DAILY [facility] Last Admin: 08/31/19 10:59 Dose: 81 mg Atorvastatin Calcium (Lipitor -) 80 mg PO HS [facility] Last Admin: 08/30/19 23:03 Dose: 80 mg Carvedilol (Coreg -) 3.125 mg PO BID [facility] Last Admin: 08/31/19 10:55 Dose: Not Given Cyclobenzaprine HCl (Flexeril -) 10 mg PO BID PRN PRN Reason: PAIN Last Admin: 08/31/19 00:52 Dose: 10 mg Dicloxacillin Sodium (Dynapen -) 500 mg PO TID [facility] Last Admin: 08/31/19 06:03 Dose: 500 mg Docusate Sodium (Colace -) 100 mg PO BID [facility] Last Admin: 08/31/19 10:58 Dose: 100 mg Enalapril Maleate (Vasotec -) 2.5 mg PO DAILY [facility] Last Admin: 08/31/19 10:55 Dose: Not Given Escitalopram Oxalate (Lexapro -) 10 mg PO DAILY [facility] Last Admin: 08/31/19 10:59 Dose: 10 mg Furosemide (Lasix -) 40 mg PO DAILY [facility] Last Admin: 08/31/19 10:59 Dose: 40 mg Meropenem 1 gm/ Dextrose 100 mls @ 200 mls/hr IVPB Q8H-IV [facility] Last Admin: 08/31/19 10:58 Dose: 200 mls/hr Levetiracetam 500 mg/ (Levetiracetam 250 mg) 750 mg PO BID [facility] Last Admin: 08/31/19 10:59 Dose: 750 mg Levothyroxine Sodium 100 mcg/ (Levothyroxine Sodium 75 mcg) 175 mcg PO DAILY@ 0700 [facility] Last Admin: 08/31/19 06:04 Dose: 175 mcg Spironolactone (Aldactone -) 25 mg PO DAILY [facility] Last Admin: 08/31/19 10:59 Dose: 25 mg Tamsulosin HCl (Flomax -) 0.8 mg PO HS [facility] Last Admin: 08/30/19 23:03 Dose: 0.8 mg - Objective Vital Signs: Vital Signs Temperature 98.2 F 08/31/19 10:00 Pulse Rate 66 08/31/19 10:00 Respiratory Rate 18 08/31/19 10:00 Blood Pressure 95/50 L 08/31/19 10:00 O2 Sat by Pulse Oximetry (%) 100 08/30/19 21:00 Constitutional: Yes: No Distress, Calm Cardiovascular: Yes: S1, S2 Respiratory: Yes: Regular, CTA Bilaterally Gastrointestinal: Yes: Normal Bowel Sounds, Soft Musculoskeletal: Yes: WNL Extremities: Yes: WNL Neurological: Yes: Alert, Oriented Psychiatric: Yes: Alert, Oriented Labs: CBC, BMP 08/27/19 16:52 08/27/19 16:52 Assessment/Plan roblem List - Problems (1) Acute urinary retention Code(s): R33.8 - OTHER RETENTION OF URINE (2) UTI (urinary tract infection) Code(s): N39.0 - URINARY TRACT INFECTION, SITE NOT SPECIFIED Qualifiers: Urinary tract infection type: site unspecified Hematuria presence: with hematuria Qualified Code(s): N39.0 - Urinary tract infection, site not specified (3) TRUDY (acute kidney injury) Code(s): N17.9 - ACUTE KIDNEY FAILURE, UNSPECIFIED (4) Atrial fibrillation Code(s): I48.91 - UNSPECIFIED ATRIAL FIBRILLATION Qualifiers: Atrial fibrillation type: persistent (5) CAD (coronary artery disease) Code(s): I25.10 - ATHSCL HEART DISEASE OF [place] CORONARY ARTERY W/O ANG PCTRS Qualifiers: Coronary Disease-Associated Artery/Lesion type: bypass graft [place] vs. 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 angina pectoris (6) Congestive heart disease Code(s): I50.9 - HEART FAILURE, UNSPECIFIED Qualifiers: Heart failure type: combined systolic and diastolic Heart failure chronicity: acute on chronic Qualified Code(s): I50.43 - Acute on chronic combined systolic (congestive) and diastolic (congestive) heart failure (7) Deep vein thrombosis (DVT) of left lower extremity Code(s): I82.402 - ACUTE EMBOLISM AND [place] UNSP DEEP VEINS OF L LOW EXTREM Qualifiers: Chronicity: acute (8) Diabetes Code(s): E11.9 - TYPE 2 DIABETES MELLITUS WITHOUT COMPLICATIONS (9) HTN (hypertension) Code(s): I10 - ESSENTIAL (PRIMARY) HYPERTENSION Qualifiers: Hypertension type: essential hypertension Qualified Code(s): I10 - Essential (primary) hypertension (10) Hypothyroidism Code(s): E03.9 - HYPOTHYROIDISM, UNSPECIFIED Assessment/Plan ESBL + E. coli UTI Urinary retention DM CAD AFIB Hx of DVT/PE -- Continue Meropenem -- Urology follow up -- pt afebrile, stable
--- NOTE | 2019-08-31 18:15 | PN ---
Progress Note (short form) - Note Progress Note: Pt seen/ examined chart reviewed awake/ comfortable Vital Signs Temp 98.3 F 08/31/19 16:20 Pulse 75 08/31/19 16:20 Resp 18 08/31/19 16:20 BP 95/58 L 08/31/19 16:20 Pulse Ox 100 08/30/19 21:00 Intake & Output 08/30/19 08/31/19 08/31/19 23:59 11:59 23:59 Intake Total 200 100 Output Total 1300 400 Balance -1100 100 -400 Weight 153 lb 6.4 oz Intake: IVPB 200 100 Output: Urine 1300 400 [place] 1300 400 Other: Voiding Method Indwelling Catheter Indwelling Catheter Indwelling Catheter Bowel Movement Yes Weight Measurement Method Built in [facility] Active Medications Alprazolam (Xanax) 1 mg PO HS [facility] Last Admin: 08/30/19 23:02 Dose: 1 mg Apixaban (Eliquis -) 5 mg PO BID [facility] Last Admin: 08/31/19 10:59 Dose: 5 mg Aspirin (Asa -) 81 mg PO DAILY [facility] Last Admin: 08/31/19 10:59 Dose: 81 mg Atorvastatin Calcium (Lipitor -) 80 mg PO HS [facility] Last Admin: 08/30/19 23:03 Dose: 80 mg Carvedilol (Coreg -) 3.125 mg PO BID [facility] Last Admin: 08/31/19 10:55 Dose: Not Given Cyclobenzaprine HCl (Flexeril -) 10 mg PO BID PRN PRN Reason: PAIN Last Admin: 08/31/19 00:52 Dose: 10 mg Dicloxacillin Sodium (Dynapen -) 500 mg PO TID [facility] Last Admin: 08/31/19 13:53 Dose: 500 mg Docusate Sodium (Colace -) 100 mg PO BID [facility] Last Admin: 08/31/19 10:58 Dose: 100 mg Enalapril Maleate (Vasotec -) 2.5 mg PO DAILY [facility] Last Admin: 08/31/19 10:55 Dose: Not Given Escitalopram Oxalate (Lexapro -) 10 mg PO DAILY [facility] Last Admin: 08/31/19 10:59 Dose: 10 mg Furosemide (Lasix -) 40 mg PO DAILY [facility] Last Admin: 08/31/19 10:59 Dose: 40 mg Meropenem 1 gm/ Dextrose 100 mls @ 200 mls/hr IVPB Q8H-IV [facility] Last Admin: 08/31/19 17:22 Dose: 200 mls/hr Levetiracetam 500 mg/ (Levetiracetam 250 mg) 750 mg PO BID [facility] Last Admin: 08/31/19 10:59 Dose: 750 mg Levothyroxine Sodium 100 mcg/ (Levothyroxine Sodium 75 mcg) 175 mcg PO DAILY@ 0700 [facility] Last Admin: 08/31/19 06:04 Dose: 175 mcg Spironolactone (Aldactone -) 25 mg PO DAILY [facility] Last Admin: 08/31/19 10:59 Dose: 25 mg Tamsulosin HCl (Flomax -) 0.8 mg PO HS [facility] Last Admin: 08/30/19 23:03 Dose: 0.8 mg CBC, BMP 08/27/19 16:52 08/27/19 16:52 Physical Exam S1 S2 RRR Lungs clear Abd- soft, Nt [place]rid+ right hand contracted PLAN UTI Urinary retention HTN CAD CHF C/c osteomyelitis --- on iv antibiotics for UTI-- 2 weeks per ID -->needs a picc line -- 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 with marketing sales manager- Working on home Abx set up -- continue with meds - will follow Problem List - Problems (1) Acute urinary retention Code(s): R33.8 - OTHER RETENTION OF URINE (2) UTI (urinary tract infection) Code(s): N39.0 - URINARY TRACT INFECTION, SITE NOT SPECIFIED Qualifiers: Urinary tract infection type: site unspecified Hematuria presence: with hematuria Qualified Code(s): N39.0 - Urinary tract infection, site not specified (3) Atrial fibrillation Code(s): I48.91 - UNSPECIFIED ATRIAL FIBRILLATION Qualifiers: Atrial fibrillation type: persistent (4) BPH (benign prostatic hyperplasia) Code(s): N40.0 - BENIGN PROSTATIC HYPERPLASIA WITHOUT LOWER URINRY TRACT SYMP (5) CAD (coronary artery disease) Code(s): I25.10 - ATHSCL HEART DISEASE OF [place] CORONARY ARTERY W/O ANG PCTRS Qualifiers: Coronary Disease-Associated Artery/Lesion type: bypass graft [place] vs. transplanted heart: [place] heart Associated angina: angina presence unspecified Qualified Code(s): I25.810 - Atherosclerosis of coronary artery bypass graft(s) without angina pectoris
[2019-08-31] MEDS: ATORVASTATIN CA 80 MG TABLET (FP) PO SCH (21:17)
[2019-08-31] MEDS: TAMSULOSIN HCL 0.4 MG CAP PO SCH (21:17)
[2019-08-31] MEDS: ALPRAZolam 1 MG TABLET PO SCH (21:17)
[2019-09-01] MEDS ORDERED: MEROPENEM 1 GM VIAL (RESTRICTED TO ID) IVPB ONE ×3 (00:20→17:38)
[2019-09-01] MEDS ORDERED: DEXTROSE 5%-WATER 100 ML IVPB ONE ×3 (00:20→17:38)
[2019-09-01] MEDS: CYCLOBENZAPRINE HCL 10 MG TABLET (FP) PO PRN ×2 (00:35→23:13)
[2019-09-01] MEDS: MEROPENEM 1 GM in DEXTROSE 5%-WATER 100 ML IVPB SCH ×3 (01:46→18:03)
[2019-09-01] MEDS ORDERED: LEVOTHYROXINE NA 75 MCG TABLET (FP) ONE (05:36)
[2019-09-01] MEDS ORDERED: LEVOTHYROXINE NA 100 MCG TABLET (FP) ONE (05:36)
[2019-09-01] MEDS: DICLOXACILLIN SODIUM 250 MG CAPSULE PO SCH ×3 (06:06→22:12)
[2019-09-01] MEDS: LEVOTHYROXINE 100 MCG, LEVOTHYROXINE 75 MCG PO SCH (06:07)
[2019-09-01] MEDS: SPIRONOLACTONE 25 MG TABLET (FP) PO SCH (10:06)
[2019-09-01] MEDS: FUROSEMIDE 40 MG TABLET (FP) PO SCH (10:06)
[2019-09-01] MEDS: CARVEDILOL 3.125 MG TABLET (FP) PO SCH ×2 (10:07→22:15)
[2019-09-01] MEDS ORDERED: levETIRAcetam 500 MG TABLET (FP) PO ONE ×2 (10:12→21:00)
[2019-09-01] MEDS ORDERED: levETIRAcetam 250 MG TABLET (FP) PO ONE ×2 (10:12→21:00)
[2019-09-01] MEDS ORDERED: PT OWN MED DRAWER 7, Y5N ONE ×3 (10:13→21:02)
[2019-09-01] MEDS: ESCITALOPRAM OXALATE 10 MG TABLET (FP) PO SCH (10:18)
[2019-09-01] MEDS: APIXABAN 5 MG TABLET PO SCH ×2 (10:18→22:15)
[2019-09-01] MEDS: ASPIRIN 81 MG CHEWABLE TABLETS PO SCH (10:18)
[2019-09-01] MEDS: DOCUSATE SODIUM 100 MG CAPSULE (FP) PO SCH ×2 (10:19→22:13)
[2019-09-01] MEDS: ENALAPRIL MALEATE 2.5 MG TABLET (FP) PO SCH (10:19)
--- NOTE | 2019-09-01 11:33 | PN ---
Progress Note, Physician History of Present Illness: stable no new issues - Current Medication List Current Medications: Active Medications Alprazolam (Xanax) 1 mg PO HS [facility] Last Admin: 08/31/19 21:17 Dose: 1 mg Apixaban (Eliquis -) 5 mg PO BID [facility] Last Admin: 09/01/19 10:18 Dose: 5 mg Aspirin (Asa -) 81 mg PO DAILY [facility] Last Admin: 09/01/19 10:18 Dose: 81 mg Atorvastatin Calcium (Lipitor -) 80 mg PO HS [facility] Last Admin: 08/31/19 21:17 Dose: 80 mg Carvedilol (Coreg -) 3.125 mg PO BID [facility] Last Admin: 09/01/19 10:07 Dose: Not Given Cyclobenzaprine HCl (Flexeril -) 10 mg PO BID PRN PRN Reason: PAIN Last Admin: 09/01/19 00:35 Dose: 10 mg Dicloxacillin Sodium (Dynapen -) 500 mg PO TID [facility] Last Admin: 09/01/19 06:06 Dose: 500 mg Docusate Sodium (Colace -) 100 mg PO BID [facility] Last Admin: 09/01/19 10:19 Dose: 100 mg Emollient Ointment (Aquaphor -) 1 applic TP TID [facility] Enalapril Maleate (Vasotec -) 2.5 mg PO DAILY [facility] Last Admin: 09/01/19 10:19 Dose: Not Given Escitalopram Oxalate (Lexapro -) 10 mg PO DAILY [facility] Last Admin: 09/01/19 10:18 Dose: 10 mg Furosemide (Lasix -) 40 mg PO DAILY [facility] Last Admin: 09/01/19 10:06 Dose: Not Given Meropenem 1 gm/ Dextrose 100 mls @ 200 mls/hr IVPB Q8H-IV [facility] Last Admin: 09/01/19 10:19 Dose: 200 mls/hr Levetiracetam 500 mg/ (Levetiracetam 250 mg) 750 mg PO BID [facility] Last Admin: 09/01/19 10:19 Dose: 750 mg Levothyroxine Sodium 100 mcg/ (Levothyroxine Sodium 75 mcg) 175 mcg PO DAILY@ 0700 [facility] Last Admin: 09/01/19 06:07 Dose: 175 mcg Spironolactone (Aldactone -) 25 mg PO DAILY [facility] Last Admin: 09/01/19 10:06 Dose: Not Given Tamsulosin HCl (Flomax -) 0.8 mg PO HS [facility] Last Admin: 08/31/19 21:17 Dose: 0.8 mg - Objective Vital Signs: Vital Signs Temperature 97.8 F 09/01/19 04:00 Pulse Rate 79 09/01/19 04:00 Respiratory Rate 18 09/01/19 04:00 Blood Pressure 93/50 L 09/01/19 04:00 O2 Sat by Pulse Oximetry (%) 100 08/30/19 21:00 Constitutional: Yes: No Distress, Calm Cardiovascular: Yes: S1, S2 Respiratory: Yes: Regular, CTA Bilaterally Gastrointestinal: Yes: Normal Bowel Sounds, Soft Genitourinary: Yes: [place] Present Musculoskeletal: Yes: WNL Extremities: Yes: Other Neurological: Yes: Alert, Oriented Psychiatric: Yes: Alert, Oriented Labs: CBC, BMP 08/27/19 16:52 08/27/19 16:52 Assessment/Plan roblem List - Problems (1) Acute urinary retention Code(s): R33.8 - OTHER RETENTION OF URINE (2) UTI (urinary tract infection) Code(s): N39.0 - URINARY TRACT INFECTION, SITE NOT SPECIFIED Qualifiers: Urinary tract infection type: site unspecified Hematuria presence: with hematuria Qualified Code(s): N39.0 - Urinary tract infection, site not specified (3) TRUDY (acute kidney injury) Code(s): N17.9 - ACUTE KIDNEY FAILURE, UNSPECIFIED (4) Atrial fibrillation Code(s): I48.91 - UNSPECIFIED ATRIAL FIBRILLATION Qualifiers: Atrial fibrillation type: persistent (5) CAD (coronary artery disease) Code(s): I25.10 - ATHSCL HEART DISEASE OF [place] CORONARY ARTERY W/O ANG PCTRS Qualifiers: Coronary Disease-Associated Artery/Lesion type: bypass graft [place] vs. transplanted heart: [place] heart Associated angina: angina presence unspecified Qualified Code(s): I25.810 - Atherosclerosis of coronary artery bypass graft(s) without angina pectoris (6) Congestive heart disease Code(s): I50.9 - HEART FAILURE, UNSPECIFIED Qualifiers: Heart failure type: combined systolic and diastolic Heart failure chronicity: acute on chronic Qualified Code(s): I50.43 - Acute on chronic combined systolic (congestive) and diastolic (congestive) heart failure (7) Deep vein thrombosis (DVT) of left lower extremity Code(s): I82.402 - ACUTE EMBOLISM AND THOMBOS UNSP DEEP VEINS OF L LOW EXTREM Qualifiers: Chronicity: acute (8) Diabetes Code(s): E11.9 - TYPE 2 DIABETES MELLITUS WITHOUT COMPLICATIONS (9) HTN (hypertension) Code(s): I10 - ESSENTIAL (PRIMARY) HYPERTENSION Qualifiers: Hypertension type: essential hypertension Qualified Code(s): I10 - Essential (primary) hypertension (10) Hypothyroidism Code(s): E03.9 - HYPOTHYROIDISM, UNSPECIFIED Assessment/Plan ESBL + E. coli UTI Urinary retention DM CAD AFIB Hx of DVT/PE -- Continue Meropenem -- Urology follow up -- pt afebrile, stable
--- NOTE | 2019-09-01 11:55 | DS ---
Physical Examination Vital Signs: Vital Signs Temperature 97.8 F 09/01/19 04:00 Pulse Rate 79 09/01/19 04:00 Respiratory Rate 18 09/01/19 04:00 Blood Pressure 93/50 L 09/01/19 04:00 O2 Sat by Pulse Oximetry (%) 100 08/30/19 21:00 Constitutional: Yes: No Distress, Calm Cardiovascular: Yes: Regular Rate and Rhythm Respiratory: Yes: CTA Bilaterally Gastrointestinal: Yes: Normal Bowel Sounds, Soft. No: Tenderness Extremities: Yes: Other (contracted right arm) Edema: No Labs: CBC, BMP 08/27/19 16:52 08/27/19 16:52 Discharge Summary Problems reviewed: Yes Reason For Visit: UTI Current Active Problems Acute urinary retention (Acute) UTI (urinary tract infection) (Acute) Hospital Course: Admitting History and Physical - Primary Care Physician PCP: Mika Flaherty - Admission Chief Complaint: urinary retention History of Present Illness: ER HISTORY - History of Present Illness Initial Comments: 08/26/19 07:52 The patient is a 78 year old male with PMH of cad sp CABG, pAF, htn, hl, chf, hypohyroidism, dm2, meningioma s/p resectin in 2001, who presents to the emergency department for evaluation of urinary retention for about 12 hours with associated suprapubic abdominal pain, constant, waxing and waning in severity with no alleviating factors. He notes history of need for catheterization for retention. Pt examined by me in the ER spoke with ER attending Pt lives at home-- has 24 hr aide Bedbound was here in the ER on 08/09 with urinary retention-- [place]rid placed and dc from ER- - madrid removed by PMD- Dr Flaherty a week after. He woke up in the morning today-- felt to have distended bladder, felt the need to urinate but could not and came to ER-- madrid placed-- cloudy urine obtained- - now >1liter [facility]OSPITAL COU[facility]SE Pt seen by Urology and ID on iv antibiotics for Ecoli urine-- ESBL madrid was removed to see trial voiding --> had to be replaced again Pt advised TURP as out patient Pt needs total 14 days antibiotics including since admission pt will be dc home with picc line for iv antibiotics Condition: Fair - Instructions Referrals: Mika Flaherty MD [Primary Care Provider] - - Home Medications Comprehensive Discharge Medication List: Ambulatory Orders Alprazolam [Xanax] 1 mg PO HS 02/18/19 Atorvastatin Ca [Lipitor] 80 mg PO HS 02/18/19 Carvedilol [Coreg -] 3.125 mg PO BID 02/18/19 Dicloxacillin Sodium 500 mg PO Q8H 02/18/19 Docusate Sodium [Colace] 100 mg PO BID 02/18/19 Escitalopram Oxalate [Lexapro -] 10 mg PO DAILY 02/18/19 Levetiracetam [Keppra] 750 mg PO BID 02/18/19 Tamsulosin HCl [Flomax] 0.4 mg PO HS 02/18/19 Aspirin [ASA -] 81 mg PO DAILY 05/05/19 Apixaban [Eliquis -] 5 mg PO BID #60 tablet 05/12/19 Enalapril Maleate [Vasotec -] 2.5 mg PO DAILY #30 tablet 05/12/19 Furosemide [Lasix -] 40 mg PO DAILY #30 tablet 05/12/19 Levothyroxine [Synthroid -] 175 mcg PO DAILY@0700 #30 tablet 05/12/19 Spironolactone [Aldactone -] 25 mg PO DAILY #30 tablet 05/12/19 Cyclobenzaprine HCl [Flexeril -] 10 mg PO BID PRN #6 tablet 06/20/19 Gabapentin 100 mg PO BID 08/26/19 Oxycodone HCl/Acetaminophen [Percocet 5-325 mg Tablet] 1 tab PO PRN PRN Sennosides [Senna] 8.6 mg PO DAILY 08/26/19 traMADol HCL [Ultram] 50 mg PO Q6H 08/26/19
[2019-09-01] MEDS: MINERAL OIL/PET HY-PHL TOPICAL OINTMENT 454 GM JAR TP SCH ×3 (13:20→22:15)
[2019-09-01] MEDS ORDERED: ALPRAZolam 1 MG TABLET PO PRN ×2 (13:36)
[2019-09-01 14:31] VITALS: BMI 21.0
[2019-09-01] MEDS: ATORVASTATIN CA 80 MG TABLET (FP) PO SCH (22:13)
[2019-09-01] MEDS: TAMSULOSIN HCL 0.4 MG CAP PO SCH (22:14)
[2019-09-02] MEDS ORDERED: MEROPENEM 1 GM VIAL (RESTRICTED TO ID) IVPB ONE ×3 (01:00→18:17)
[2019-09-02] MEDS ORDERED: DEXTROSE 5%-WATER 100 ML IVPB ONE ×3 (01:00→18:17)
[2019-09-02] MEDS: MEROPENEM 1 GM in DEXTROSE 5%-WATER 100 ML IVPB SCH ×3 (01:20→18:42)
[2019-09-02] MEDS ORDERED: LEVOTHYROXINE NA 75 MCG TABLET (FP) ONE (05:32)
[2019-09-02] MEDS ORDERED: LEVOTHYROXINE NA 100 MCG TABLET (FP) ONE (05:32)
[2019-09-02] MEDS: LEVOTHYROXINE 100 MCG, LEVOTHYROXINE 75 MCG PO SCH (06:13)
[2019-09-02] MEDS: MINERAL OIL/PET HY-PHL TOPICAL OINTMENT 454 GM JAR TP SCH ×3 (06:13→21:51)
[2019-09-02] MEDS: DICLOXACILLIN SODIUM 250 MG CAPSULE PO SCH ×3 (06:13→21:51)
[2019-09-02] MEDS ORDERED: levETIRAcetam 250 MG TABLET (FP) PO ONE ×2 (09:06→21:29)
[2019-09-02] MEDS ORDERED: levETIRAcetam 500 MG TABLET (FP) PO ONE ×2 (09:06→21:28)
[2019-09-02] MEDS ORDERED: PT OWN MED DRAWER 7, Y5N ONE ×2 (09:08→21:30)
[2019-09-02] MEDS: ASPIRIN 81 MG CHEWABLE TABLETS PO SCH (10:21)
[2019-09-02] MEDS: APIXABAN 5 MG TABLET PO SCH ×2 (10:21→21:51)
[2019-09-02] MEDS: ESCITALOPRAM OXALATE 10 MG TABLET (FP) PO SCH (10:22)
[2019-09-02] MEDS: DOCUSATE SODIUM 100 MG CAPSULE (FP) PO SCH ×2 (10:22→21:51)
[2019-09-02] MEDS: FUROSEMIDE 40 MG TABLET (FP) PO SCH (10:22)
[2019-09-02] MEDS: CARVEDILOL 3.125 MG TABLET (FP) PO SCH ×2 (10:23→21:51)
[2019-09-02] MEDS: SPIRONOLACTONE 25 MG TABLET (FP) PO SCH (10:23)
[2019-09-02] MEDS: ENALAPRIL MALEATE 2.5 MG TABLET (FP) PO SCH (10:26)
--- NOTE | 2019-09-02 10:39 | PN ---
Progress Note (short form) - Note Progress Note: No distress picc line placed no complaints Vital Signs - 24 hr 09/01/19 09/01/19 09/02/19 17:26 21:00 06:00 Temperature 98.1 F 97.8 F 98.3 F Pulse Rate 83 84 83 Respiratory 18 18 18 Rate Blood Pressure 128/68 106/42 L 123/64 Current Medications Generic Name Dose Route Start Last Admin Trade Name Freq PRN Reason Stop Dose Admin Alprazolam 1 mg 09/01/19 13:36 Xanax PO 09/02/19 13:35 ONCE PRN ANXIETY Alprazolam 1 mg 09/01/19 13:36 Xanax PO BID PRN ANXIETY Apixaban 5 mg 08/26/19 11:15 09/02/19 10:21 Eliquis - PO 5 mg BID [facility] Administration Aspirin 81 mg 08/27/19 10:00 09/02/19 10:21 Asa - PO 81 mg DAILY [facility] Administration Atorvastatin Calcium 80 mg 08/26/19 22:00 09/01/19 22:13 Lipitor - PO 80 mg HS [facility] Administration Carvedilol 3.125 mg 08/26/19 22:00 09/02/19 10:23 Coreg - PO 3.125 mg BID [facility] Administration Cyclobenzaprine HCl 10 mg 08/26/19 11:04 09/01/19 23:13 Flexeril - PO 10 mg BID PRN Administration PAIN Dicloxacillin Sodium 500 mg 08/27/19 14:00 09/02/19 06:13 Dynapen - PO 500 mg TID [facility] Administration Docusate Sodium 100 mg 08/26/19 22:00 09/02/19 10:22 Colace - PO 100 mg BID [facility] Administration Emollient Ointment 1 applic 09/01/19 10:45 09/02/19 06:13 Aquaphor - TP 1 applic TID [facility] Administration Enalapril Maleate 2.5 mg 08/26/19 11:15 09/02/19 10:26 Vasotec - PO Not Given DAILY [facility] Escitalopram Oxalate 10 mg 08/26/19 11:15 09/02/19 10:22 Lexapro - PO 10 mg DAILY [facility] Administration Furosemide 40 mg 08/27/19 10:00 09/02/19 10:22 Lasix - PO 40 mg DAILY [facility] Administration Meropenem 1 gm/ Dextrose 100 mls @ 200 mls/hr 08/27/19 10:00 09/02/19 10:22 IVPB 200 mls/hr Q8H-IV [facility] Administration Levetiracetam 500 mg/ 750 mg 08/26/19 12:00 09/02/19 10:21 Levetiracetam 250 mg PO 750 mg BID [facility] Administration Levothyroxine Sodium 100 mcg/ 175 mcg 08/27/19 07:00 09/02/19 06:13 Levothyroxine Sodium 75 mcg PO 175 mcg DAILY@0700 [facility] Administration Spironolactone 25 mg 08/26/19 11:15 09/02/19 10:23 Aldactone - PO 25 mg DAILY [facility] Administration Tamsulosin HCl 0.8 mg 08/26/19 22:00 09/01/19 22:14 Flomax - PO 0.8 mg HS [facility] Administration S1 S2 RRR Lungs clear Abd- soft, Nt [place]+ Edema trace+ PLAN UTI Urinary retention HTN CAD CHF C/c osteomyelitis --- on iv antibiotics for UTI--last dose Sep 10 -- spoke with ID -- continue with meds Problem List - Problems (1) Acute urinary retention Code(s): R33.8 - OTHER RETENTION OF URINE (2) UTI (urinary tract infection) Code(s): N39.0 - URINARY TRACT INFECTION, SITE NOT SPECIFIED Qualifiers: Urinary tract infection type: site unspecified Hematuria presence: with hematuria Qualified Code(s): N39.0 - Urinary tract infection, site not specified (3) Atrial fibrillation Code(s): I48.91 - UNSPECIFIED ATRIAL FIBRILLATION Qualifiers: Atrial fibrillation type: persistent (4) BPH (benign prostatic hyperplasia) Code(s): N40.0 - BENIGN PROSTATIC HYPERPLASIA WITHOUT LOWER URINRY TRACT SYMP (5) CAD (coronary artery disease) Code(s): I25.10 - ATHSCL HEART DISEASE OF [place] CORONARY ARTERY W/O ANG PCTRS Qualifiers: Coronary Disease-Associated Artery/Lesion type: bypass graft [place] vs. transplanted heart: [place] heart Associated angina: angina presence unspecified Qualified Code(s): I25.810 - Atherosclerosis of coronary artery bypass graft(s) without angina pectoris
--- NOTE | 2019-09-02 11:19 | PN ---
Progress Note, Physician History of Present Illness: stable no new sues - Current Medication List Current Medications: Active Medications Alprazolam (Xanax) 1 mg PO ONCE PRN PRN Reason: ANXIETY Stop: 09/02/19 13:35 Alprazolam (Xanax) 1 mg PO BID PRN PRN Reason: ANXIETY Apixaban (Eliquis -) 5 mg PO BID [facility] Last Admin: 09/02/19 10:21 Dose: 5 mg Aspirin (Asa -) 81 mg PO DAILY [facility] Last Admin: 09/02/19 10:21 Dose: 81 mg Atorvastatin Calcium (Lipitor -) 80 mg PO HS [facility] Last Admin: 09/01/19 22:13 Dose: 80 mg Carvedilol (Coreg -) 3.125 mg PO BID [facility] Last Admin: 09/02/19 10:23 Dose: 3.125 mg Cyclobenzaprine HCl (Flexeril -) 10 mg PO BID PRN PRN Reason: PAIN Last Admin: 09/01/19 23:13 Dose: 10 mg Dicloxacillin Sodium (Dynapen -) 500 mg PO TID [facility] Last Admin: 09/02/19 06:13 Dose: 500 mg Docusate Sodium (Colace -) 100 mg PO BID [facility] Last Admin: 09/02/19 10:22 Dose: 100 mg Emollient Ointment (Aquaphor -) 1 applic TP TID [facility] Last Admin: 09/02/19 06:13 Dose: 1 applic Escitalopram Oxalate (Lexapro -) 10 mg PO DAILY [facility] Last Admin: 09/02/19 10:22 Dose: 10 mg Furosemide (Lasix -) 40 mg PO DAILY [facility] Last Admin: 09/02/19 10:22 Dose: 40 mg Meropenem 1 gm/ Dextrose 100 mls @ 200 mls/hr IVPB Q8H-IV [facility] Last Admin: 09/02/19 10:22 Dose: 200 mls/hr Levetiracetam 500 mg/ (Levetiracetam 250 mg) 750 mg PO BID [facility] Last Admin: 09/02/19 10:21 Dose: 750 mg Levothyroxine Sodium 100 mcg/ (Levothyroxine Sodium 75 mcg) 175 mcg PO DAILY@ 0700 [facility] Last Admin: 09/02/19 06:13 Dose: 175 mcg Spironolactone (Aldactone -) 25 mg PO DAILY [facility] Last Admin: 09/02/19 10:23 Dose: 25 mg Tamsulosin HCl (Flomax -) 0.8 mg PO HS [facility] Last Admin: 09/01/19 22:14 Dose: 0.8 mg - Objective Vital Signs: Vital Signs Temperature 98.3 F 09/02/19 06:00 Pulse Rate 83 09/02/19 06:00 Respiratory Rate 18 09/02/19 06:00 Blood Pressure 123/64 09/02/19 06:00 O2 Sat by Pulse Oximetry (%) 100 08/30/19 21:00 Constitutional: Yes: No Distress, Calm Cardiovascular: Yes: S1, S2 Respiratory: Yes: Regular, CTA Bilaterally Gastrointestinal: Yes: Normal Bowel Sounds, Soft Musculoskeletal: Yes: WNL Extremities: Yes: WNL Neurological: Yes: Alert, Oriented Psychiatric: Yes: Alert, Oriented Labs: CBC, BMP 08/27/19 16:52 08/27/19 16:52 Assessment/Plan roblem List - Problems (1) Acute urinary retention Code(s): R33.8 - OTHER RETENTION OF URINE (2) UTI (urinary tract infection) Code(s): N39.0 - URINARY TRACT INFECTION, SITE NOT SPECIFIED Qualifiers: Urinary tract infection type: site unspecified Hematuria presence: with hematuria Qualified Code(s): N39.0 - Urinary tract infection, site not specified (3) TRUDY (acute kidney injury) Code(s): N17.9 - ACUTE KIDNEY FAILURE, UNSPECIFIED (4) Atrial fibrillation Code(s): I48.91 - UNSPECIFIED ATRIAL FIBRILLATION Qualifiers: Atrial fibrillation type: persistent (5) CAD (coronary artery disease) Code(s): I25.10 - ATHSCL HEART DISEASE OF [place] CORONARY ARTERY W/O ANG PCTRS Qualifiers: Coronary Disease-Associated Artery/Lesion type: bypass graft [place] vs. transplanted heart: [place] heart Associated angina: angina presence unspecified Qualified Code(s): I25.810 - Atherosclerosis of coronary artery bypass graft(s) without angina pectoris (6) Congestive heart disease Code(s): I50.9 - HEART FAILURE, UNSPECIFIED Qualifiers: Heart failure type: combined systolic and diastolic Heart failure chronicity: acute on chronic Qualified Code(s): I50.43 - Acute on chronic combined systolic (congestive) and diastolic (congestive) heart failure (7) Deep vein thrombosis (DVT) of left lower extremity Code(s): I82.402 - ACUTE EMBOLISM AND [place] UNSP DEEP VEINS OF L LOW EXTREM Qualifiers: Chronicity: acute (8) Diabetes Code(s): E11.9 - TYPE 2 DIABETES MELLITUS WITHOUT COMPLICATIONS (9) HTN (hypertension) Code(s): I10 - ESSENTIAL (PRIMARY) HYPERTENSION Qualifiers: Hypertension type: essential hypertension Qualified Code(s): I10 - Essential (primary) hypertension (10) Hypothyroidism Code(s): E03.9 - HYPOTHYROIDISM, UNSPECIFIED Assessment/Plan ESBL + E. coli UTI Urinary retention DM CAD AFIB Hx of DVT/PE -- Continue Meropenem -- Urology follow up -- pt afebrile, stable complete abx course can switch to ertapenam on discharge
[2019-09-02] MEDS: TAMSULOSIN HCL 0.4 MG CAP PO SCH (21:50)
[2019-09-02] MEDS: ATORVASTATIN CA 80 MG TABLET (FP) PO SCH (21:50)
[2019-09-02 23:44] VITALS: PULSE 82
[2019-09-02] MEDS: CYCLOBENZAPRINE HCL 10 MG TABLET (FP) PO PRN (23:58)
[2019-09-03] MEDS ORDERED: DEXTROSE 5%-WATER 100 ML IVPB ONE ×2 (01:06→09:15)
[2019-09-03] MEDS ORDERED: MEROPENEM 1 GM VIAL (RESTRICTED TO ID) IVPB ONE ×2 (01:06→09:15)
[2019-09-03] MEDS: MEROPENEM 1 GM in DEXTROSE 5%-WATER 100 ML IVPB SCH ×2 (01:52→09:27)
[2019-09-03] MEDS ORDERED: PT OWN MED DRAWER 7, Y5N ONE ×3 (05:24→13:03)
[2019-09-03] MEDS ORDERED: LEVOTHYROXINE NA 100 MCG TABLET (FP) ONE (05:24)
[2019-09-03] MEDS ORDERED: LEVOTHYROXINE NA 75 MCG TABLET (FP) ONE (05:24)
[2019-09-03] MEDS: MINERAL OIL/PET HY-PHL TOPICAL OINTMENT 454 GM JAR TP SCH ×2 (06:26→13:14)
[2019-09-03] MEDS: LEVOTHYROXINE 100 MCG, LEVOTHYROXINE 75 MCG PO SCH (06:27)
[2019-09-03] MEDS: DICLOXACILLIN SODIUM 250 MG CAPSULE PO SCH ×2 (06:27→13:13)
[2019-09-03] MEDS ORDERED: levETIRAcetam 500 MG TABLET (FP) PO ONE (09:14)
[2019-09-03] MEDS ORDERED: levETIRAcetam 250 MG TABLET (FP) PO ONE (09:14)
[2019-09-03 09:26] VITALS: BP 150/60; TEMP 98.1
[2019-09-03] MEDS: FUROSEMIDE 40 MG TABLET (FP) PO SCH (09:27)
[2019-09-03] MEDS: SPIRONOLACTONE 25 MG TABLET (FP) PO SCH (09:27)
[2019-09-03] MEDS: ASPIRIN 81 MG CHEWABLE TABLETS PO SCH (09:27)
[2019-09-03] MEDS: ESCITALOPRAM OXALATE 10 MG TABLET (FP) PO SCH (09:28)
[2019-09-03] MEDS: CARVEDILOL 3.125 MG TABLET (FP) PO SCH (09:28)
[2019-09-03] MEDS: APIXABAN 5 MG TABLET PO SCH (09:28)
[2019-09-03] MEDS: DOCUSATE SODIUM 100 MG CAPSULE (FP) PO SCH (09:28)
--- NOTE | 2019-09-03 09:45 | PN ---
Progress Note, Physician History of Present Illness: stable no new issues - Current Medication List Current Medications: Active Medications Alprazolam (Xanax) 1 mg PO BID PRN PRN Reason: ANXIETY Last Admin: 09/02/19 21:53 Dose: 1 mg Apixaban (Eliquis -) 5 mg PO BID [facility] Last Admin: 09/03/19 09:28 Dose: 5 mg Aspirin (Asa -) 81 mg PO DAILY [facility] Last Admin: 09/03/19 09:27 Dose: 81 mg Atorvastatin Calcium (Lipitor -) 80 mg PO HS [facility] Last Admin: 09/02/19 21:50 Dose: 80 mg Carvedilol (Coreg -) 3.125 mg PO BID [facility] Last Admin: 09/03/19 09:28 Dose: 3.125 mg Cyclobenzaprine HCl (Flexeril -) 10 mg PO BID PRN PRN Reason: PAIN Last Admin: 09/02/19 23:58 Dose: 10 mg Dicloxacillin Sodium (Dynapen -) 500 mg PO TID [facility] Last Admin: 09/03/19 06:27 Dose: 500 mg Docusate Sodium (Colace -) 100 mg PO BID [facility] Last Admin: 09/03/19 09:28 Dose: 100 mg Emollient Ointment (Aquaphor -) 1 applic TP TID [facility] Last Admin: 09/03/19 06:26 Dose: 1 applic Escitalopram Oxalate (Lexapro -) 10 mg PO DAILY [facility] Last Admin: 09/03/19 09:28 Dose: 10 mg Furosemide (Lasix -) 40 mg PO DAILY [facility] Last Admin: 09/03/19 09:27 Dose: 40 mg Meropenem 1 gm/ Dextrose 100 mls @ 200 mls/hr IVPB Q8H-IV [facility] Last Admin: 09/03/19 09:27 Dose: 200 mls/hr Levetiracetam 500 mg/ (Levetiracetam 250 mg) 750 mg PO BID [facility] Last Admin: 09/03/19 09:27 Dose: 750 mg Levothyroxine Sodium 100 mcg/ (Levothyroxine Sodium 75 mcg) 175 mcg PO DAILY@ 0700 [facility] Last Admin: 09/03/19 06:27 Dose: 175 mcg Spironolactone (Aldactone -) 25 mg PO DAILY [facility] Last Admin: 09/03/19 09:27 Dose: 25 mg Tamsulosin HCl (Flomax -) 0.8 mg PO HS [facility] Last Admin: 09/02/19 21:50 Dose: 0.8 mg - Objective Vital Signs: Vital Signs Temperature 98.1 F 09/03/19 09:26 Pulse Rate 82 09/03/19 09:26 Respiratory Rate 18 09/03/19 09:26 Blood Pressure 150/60 09/03/19 09:26 O2 Sat by Pulse Oximetry (%) 100 08/30/19 21:00 Constitutional: Yes: No Distress, Calm Cardiovascular: Yes: S1, S2 Respiratory: Yes: Regular, CTA Bilaterally Gastrointestinal: Yes: Normal Bowel Sounds, Soft Musculoskeletal: Yes: WNL Extremities: Yes: Other Neurological: Yes: Alert, Oriented Psychiatric: Yes: Alert, Oriented Labs: CBC, BMP 08/27/19 16:52 08/27/19 16:52 Assessment/Plan roblem List - Problems (1) Acute urinary retention Code(s): R33.8 - OTHER RETENTION OF URINE (2) UTI (urinary tract infection) Code(s): N39.0 - URINARY TRACT INFECTION, SITE NOT SPECIFIED Qualifiers: Urinary tract infection type: site unspecified Hematuria presence: with hematuria Qualified Code(s): N39.0 - Urinary tract infection, site not specified (3) TRUDY (acute kidney injury) Code(s): N17.9 - ACUTE KIDNEY FAILURE, UNSPECIFIED (4) Atrial fibrillation Code(s): I48.91 - UNSPECIFIED ATRIAL FIBRILLATION Qualifiers: Atrial fibrillation type: persistent (5) CAD (coronary artery disease) Code(s): I25.10 - ATHSCL HEART DISEASE OF [place] CORONARY ARTERY W/O ANG PCTRS Qualifiers: Coronary Disease-Associated Artery/Lesion type: bypass graft [place] vs. transplanted heart: [place] heart Associated angina: angina presence unspecified Qualified Code(s): I25.810 - Atherosclerosis of coronary artery bypass graft(s) without angina pectoris (6) Congestive heart disease Code(s): I50.9 - HEART FAILURE, UNSPECIFIED Qualifiers: Heart failure type: combined systolic and diastolic Heart failure chronicity: acute on chronic Qualified Code(s): I50.43 - Acute on chronic combined systolic (congestive) and diastolic (congestive) heart failure (7) Deep vein thrombosis (DVT) of left lower extremity Code(s): I82.402 - ACUTE EMBOLISM AND [place]OMBOS UNSP DEEP VEINS OF L LOW EXTREM Qualifiers: Chronicity: acute (8) Diabetes Code(s): E11.9 - TYPE 2 DIABETES MELLITUS WITHOUT COMPLICATIONS (9) HTN (hypertension) Code(s): I10 - ESSENTIAL (PRIMARY) HYPERTENSION Qualifiers: Hypertension type: essential hypertension Qualified Code(s): I10 - Essential (primary) hypertension (10) Hypothyroidism Code(s): E03.9 - HYPOTHYROIDISM, UNSPECIFIED Assessment/Plan ESBL + E. coli UTI Urinary retention DM CAD AFIB Hx of DVT/PE -- Continue Meropenem -- Urology follow up -- pt afebrile, stable complete abx course can switch to ertapenam on discharge
--- NOTE | 2019-09-03 12:29 | PN ---
Progress Note (short form) - Note Progress Note: No distress picc line placed no complaints Vital Signs - 24 hr 09/02/19 09/02/19 09/03/19 16:30 22:00 06:00 Temperature 98.1 F 98.2 F 98.6 F Pulse Rate 81 82 Respiratory 18 18 18 Rate Blood Pressure 122/82 156/72 147/74 09/03/19 09:26 Temperature 98.1 F Pulse Rate 82 Respiratory 18 Rate Blood Pressure 150/60 Current Medications Generic Name Dose Route Start Last Admin Trade Name Freq PRN Reason Stop Dose Admin Alprazolam 1 mg 09/01/19 13:36 09/02/19 21:53 Xanax PO 1 mg BID PRN Administration ANXIETY Apixaban 5 mg 08/26/19 11:15 09/03/19 09:28 Eliquis - PO 5 mg BID EUGENE Administration Aspirin 81 mg 08/27/19 10:00 09/03/19 09:27 Asa - PO 81 mg DAILY EUGENE Administration Atorvastatin Calcium 80 mg 08/26/19 22:00 09/02/19 21:50 Lipitor - PO 80 mg HS EUGENE Administration Carvedilol 3.125 mg 08/26/19 22:00 09/03/19 09:28 Coreg - PO 3.125 mg BID EUGENE Administration Cyclobenzaprine HCl 10 mg 08/26/19 11:04 09/02/19 23:58 Flexeril - PO 10 mg BID PRN Administration PAIN Dicloxacillin Sodium 500 mg 08/27/19 14:00 09/03/19 13:13 Dynapen - PO 500 mg TID EUGENE Administration Docusate Sodium 100 mg 08/26/19 22:00 09/03/19 09:28 Colace - PO 100 mg BID EUGENE Administration Emollient Ointment 1 applic 09/01/19 10:45 09/03/19 13:14 Aquaphor - TP 1 applic TID EUGENE Administration Escitalopram Oxalate 10 mg 08/26/19 11:15 09/03/19 09:28 Lexapro - PO 10 mg DAILY EUGENE Administration Furosemide 40 mg 08/27/19 10:00 09/03/19 09:27 Lasix - PO 40 mg DAILY EUGENE Administration Meropenem 1 gm/ Dextrose 100 mls @ 200 mls/hr 08/27/19 10:00 09/03/19 09:27 IVPB 200 mls/hr Q8H-IV EUGENE Administration Levetiracetam 500 mg/ 750 mg 08/26/19 12:00 09/03/19 09:27 Levetiracetam 250 mg PO 750 mg BID EUGENE Administration Levothyroxine Sodium 100 mcg/ 175 mcg 08/27/19 07:00 09/03/19 06:27 Levothyroxine Sodium 75 mcg PO 175 mcg DAILY@0700 EUGENE Administration Spironolactone 25 mg 08/26/19 11:15 09/03/19 09:27 Aldactone - PO 25 mg DAILY EUGENE Administration Tamsulosin HCl 0.8 mg 08/26/19 22:00 09/02/19 21:50 Flomax - PO 0.8 mg HS EUGENE Administration S1 S2 RRR Lungs clear Abd- soft, Nt [place]+ Edema trace+ PLAN UTI Urinary retention HTN CAD CHF C/c osteomyelitis --- on iv antibiotics for UTI--last dose Sep 10--.>patient will be going to rehabilitation for antibiotics- meropenem -- spoke with ID -- continue with meds Problem List - Problems (1) Acute urinary retention Code(s): R33.8 - OTHER RETENTION OF URINE (2) UTI (urinary tract infection) Code(s): N39.0 - URINARY TRACT INFECTION, SITE NOT SPECIFIED Qualifiers: Urinary tract infection type: site unspecified Hematuria presence: with hematuria Qualified Code(s): N39.0 - Urinary tract infection, site not specified (3) Atrial fibrillation Code(s): I48.91 - UNSPECIFIED ATRIAL FIBRILLATION Qualifiers: Atrial fibrillation type: persistent (4) BPH (benign prostatic hyperplasia) Code(s): N40.0 - BENIGN PROSTATIC HYPERPLASIA WITHOUT LOWER URINRY TRACT SYMP (5) CAD (coronary artery disease) Code(s): I25.10 - ATHSCL HEART DISEASE OF [place] CORONARY ARTERY W/O ANG PCTRS Qualifiers: Coronary Disease-Associated Artery/Lesion type: bypass graft [place] vs. transplanted heart: [place] heart Associated angina: angina presence unspecified Qualified Code(s): I25.810 - Atherosclerosis of coronary artery bypass graft(s) without angina pectoris
== END 2019-09-03 14:58 | DRG 690 ==
LOC: JER 06:56 → JERBED 11:10 → J8W 18:46
PROVIDERS: ADMIT Internal Medicine; ATTEND Internal Medicine
DX: N39.0 Urinary tract infection, site not specified (principal); I48.19 Other persistent atrial fibrillation; I50.42 Chronic combined systolic (congestive) and diastolic (congestive) heart failure; M86.9 Osteomyelitis, unspecified; B96.20 Unspecified Escherichia coli [E. coli] as the cause of diseases classified elsewhere; I11.0 Hypertensive heart disease with heart failure; E11.69 Type 2 diabetes mellitus with other specified complication; I25.10 Atherosclerotic heart disease of native coronary artery without angina pectoris; E03.9 Hypothyroidism, unspecified; E11.9 Type 2 diabetes mellitus without complications; E78.5 Hyperlipidemia, unspecified; E11.42 Type 2 diabetes mellitus with diabetic polyneuropathy; N40.0 Benign prostatic hyperplasia without lower urinary tract symptoms; D64.9 Anemia, unspecified; F41.8 Other specified anxiety disorders; M54.5 Low back pain; M17.12 Unilateral primary osteoarthritis, left knee; D32.9 Benign neoplasm of meninges, unspecified; R33.8 Other retention of urine; R54 Age-related physical debility; Z86.718 Personal history of other venous thrombosis and embolism; Z95.1 Presence of aortocoronary bypass graft; Z86.711 Personal history of pulmonary embolism
CPT/HCPCS: 36415; 36569; 71045-TC-FY; 76856-TC; 77001-TC-FY; 80048; 80053; 81003; 82962; 85025; 87086; 87186; 93005; 93010; 97116-GP; 97161-GP; 99283-25; C1751